=== PATIENT | female | born 2000 | race Caucasian/White ===

== ENCOUNTER 2023-08-31 23:31 | Emergency (ER) | payer OTHER, SELFPAY ==
[2023-08-31 23:33] VITALS: BP 150/105; PULSE 73; RESP 18; TEMP 36.6; O2SAT 100; BMI 26.3
--- NOTE | 2023-08-31 23:51 | EDS_ITS ---
HPI HPI - GI History of Present Illness Chief Complaint: Abd Pain Informant: patient Abdominal Pain/Flank Pain Onset: Weeks (2-3) Context: Gradual Onset Timing: Continuous Quality: Aching Location: Diffuse Current Severity: Moderate Maximum Severity: Moderate Worsened by: Nothing Relieved by: Nothing Nausea/Vomiting/Emesis GI Symptom: Positive for Nausea; Negative for Vomiting Diarrhea/Melena/Hematochezia GI Symptom: Negative for Diarrhea, Melena or Hematochezia Associated Symptoms Associated Symptoms: Negative for Dysuria, Frequency, Hematuria or Urgency Narrative Narrative: 23-year-old female with a history of asthma has been having diffuse infraumbilical abdominal pain for weeks. Yesterday and today it is radiating into both sides of her low back. When she eats the pain does not worsen, but she does get more nauseated. She is having normal bowel movements without mucus, diarrhea, melena, blood. Bowel movements do not improve the pain afterwards. No urinary symptoms. Has not noticed a pattern with certain foods or foods in general. Made an appointment with her doctor but it is going to be weeks before she can be seen. She presents to the ER because noticing symptoms are worsening rather than improving. She is drinking fluids without difficulty. No history of this. No history of any abdominal surgeries. States initially felt like cramping, she does not usually get menstrual cramps and has not for years because of control medication that she is on. She denies any vaginal discharge or other vaginal symptoms. [facility] Medical History (Updated 09/01/23 @ 03:[address] Jose Anderson MD) Asthma Home Medications dicyclomine 10 mg capsule 20 mg (2 x 10 mg) PO Q6H PRN Abdominal Discomfort #30 CAPSULES 09/01/23 [Rx Last Taken Unknown] ondansetron 4 mg disintegrating tablet 8 mg (2 x 4 mg) PO Q8H PRN PRN Nausea #30 tabs 09/01/23 [Rx Last Taken Unknown] pantoprazole 40 mg tablet,delayed release 40 mg PO DAILY #14 tabs 09/01/23 [Rx Last Taken Unknown] Allergy/AdvReac Type Severity Reaction Status Date / Time levetiracetam [From [facility]] Allergy Intermediate Hives Verified 08/31/23 23:35 shellfish derived Allergy Intermediate Hives Verified 08/31/23 23:35 Surgical History no surgical history no surgical history Social History Smoking Status: Never smoker ROS ROS ED Constitutional Constitutional ED: Denies chills or fever(s) Eyes Eyes: Denies change in vision or diplopia ENT ENT ED: Denies rhinorrhea or sore throat Cardiovascular Cardiovascular: Denies chest pain or palpitations Respiratory/Chest Respiratory/Chest: Denies cough or dyspnea Gastrointestinal Gastrointestinal: Reports abdominal pain and nausea; Denies diarrhea or vomiting Genitourinary Genitourinary ED: Denies dysuria or hematuria Musculoskeletal Musculoskeletal: Reports back pain; Denies neck pain Integumentary Denies abscess or rash Neurologic Neurologic: Denies headache(s), paresthesias or weakness Psychiatric Psychiatric: Denies anxiety or suicidal thoughts EXAM Physical Exam Const Vital Signs: 08/31/23 23:33 09/01/23 01:32 Temperature 97.9 F Temperature Source Temporal Pulse Rate 73 Respiratory Rate 18 16 Blood Pressure 150/105 H Blood Pressure Mean 120 Pulse Ox 100 Oxygen Delivery Method Room Air Positive well nourished and well developed General Appearance ED: well developed and NAD HEENT Reports moist mucous membranes normocephalic and atraumatic Eyes PERRL and EOMs intact bilaterally Neck full ROM and supple Resp normal respiratory effort and clear to auscultation bilaterally Cardio regular rate, regular rhythm and no murmurs GI non-distended GI Narrative: Mild diffuse lower abdominal pain. No rebound tenderness no guarding. Soft no palpable masses or organomegaly. Auscultation: hypoactive bowel sounds Palpation: soft Back/Spine no CVA tenderness General Back: other FROM Extremity normal to inspection General Extremety ED: Negative for edema, pulses abnormal or tenderness General Extremity: Negative for edema or pulses abnormal Neuro oriented x3, CN's II-XII intact bilaterally and no sensory deficits noted Sensorium / Orientation: awake and alert Motor Exam: strength 5/5 throughout Skin no rashes or lesions noted and no wounds MDM MDM MDM Narrative Medical decision making narrative: Etiologies include a plethora of functional intestinal disorders, but also possibly colitis of different types, less likely infectious since no diarrhea or fevers and less likely ectopic , but given all of this, I think reasonable to obtain CT imaging in addition to basic labs and a test. While waiting for these tests, she was given IV fluids, Zofran, Toradol, dicyclomine. These medications helped some but did not resolve any of her symptoms, still had some nausea which we treated with Reglan afterwards. The testing is all normal. I reviewed the CT images and the report which I agree with. It shows no acute abnormality. This is reassuring and all consistent with a functional intestinal disorder of some sort, the best case scenario being a transient infection, but I do not suspect this is a bacterial infection since she is not having a very aggressive diarrhea with blood nor leukocytosis or left shift. She understands all this. At this time I think would be reasonable to put her on a 2-week course of a PPI, and then as needed dicyclomine and Zofran until she can follow-up. She is comfortable with that plan. We also discussed trying an anti-inflammatory diet. Lab Data Attestation: I reviewed the patient's lab results. Labs: Laboratory Results - last 24 hr 08/31/23 23:56 WBC 7.0 RBC 4.13 L Hgb 13.1 Hct 38.3 MCV 92.7 MCH 31.7 MCHC 34.2 RDW Std Deviation 39.8 RDW Coeff of Omar 11.7 Plt Count 211 MPV 11.3 Immature Gran % (Auto) 0.600 Neut % (Auto) 51.2 Lymph % (Auto) 38.3 [place] % (Auto) 8.7 Eos % (Auto) 0.9 Baso % (Auto) 0.3 Absolute Neuts (auto) 3.6 Absolute Lymphs (auto) 2.68 Nucleated RBC % 0 Sodium 139 Potassium 3.8 Chloride 108 H Carbon Dioxide 25.0 Anion Gap 6 BUN 15 Creatinine 0.86 Estim Creat Clear Calc 79.78 Est GFR (MDRD) Af Amer 104 Est GFR (MDRD) Non-Af 86 BUN/Creatinine Ratio 17.5 Glucose 105 Calcium 8.6 Total Bilirubin 0.30 AST 11 L ALT 21 Alkaline Phosphatase 69 Total Protein 6.9 Albumin 3.5 Globulin 3.4 Albumin/Globulin Ratio 1.0 Lipase 30 Serum , Qual NEGATIVE Urine Color Yellow Urine Clarity Clear Urine pH 6.5 Ur Specific [place] 1.015 Urine Protein 15 H Urine Glucose (UA) Normal Urine Ketones Negative Urine Occult Blood 25 H Urine Nitrite Negative Urine Bilirubin Negative Urine Urobilinogen Normal Ur Leukocyte Esterase Negative Urine RBC 0-5 SEEN Urine WBC 0 SEEN Ur Squamous Epith Cells 0-5 SEEN Urine Bacteria RARE Urine Mucus 0 SEEN Radiography Diagnostic Testing: Clinical Impression(s) from Imaging Studies Abdomen/Pelvis CT 09/01/23 23:50 IMPRESSION: undefined Discharge Plan Triage Chief Complaint: Abd Pain ED Provider: Jose Anderson Dx/Rx/DC Orders Clinical Impression: Diffuse abdominal pain Instructions: Abdominal Pain Prescriptions: New ondansetron [ondansetron] 4 mg tablet,disintegrating 8 mg PO Q8H PRN PRN (Reason: Nausea) Qty: 30 0RF dicyclomine 10 mg capsule 20 mg PO Q6H PRN (Reason: Abdominal Discomfort) Qty: 30 0RF pantoprazole 40 mg tablet,delayed release (DR/EC) 40 mg PO DAILY Qty: 14 0RF Stand Alone Forms: ED Work / School Excuse Primary Care Provider: Care Physician,No Primary Referrals: Doctor,Your [Non-Staff] - Keep Ash appointment Activity Restrictions/Additional Instructions: Consider trying an anti-inflammatory diet for as many days as you are able, oftentimes these disorders are related to foods and it can be difficult to detect the pattern or the offending agent, as even healthy foods can cause these issues depending on what the problem is. Disposition Disposition: Home, Self Care
[2023-09-01] LABS: Mucous, Urine 0 SEEN /hpf (<or=2+); White Blood Cells 0 SEEN /hpf (0-5)
[2023-09-01] MEDS: Ketorolac 30 MG/ML Syringe IV
[2023-09-01] MEDS: Dicyclomine 10 MG Capsule 20 MG PO
[2023-09-01] MEDS: Ondansetron 4 MG/2 ML Vial IV
[2023-09-01] MEDS: 0.9% Normal Saline (1000mL) 1,000 ML 125 ML IV (00:01)
[2023-09-01 00:07] LABS: Glucose, Dipstick Normal (Normal); Ketone-Dipstick Negative (Negative); Leukocyte Esterase-Dipstick Negative /ul (Negative); Nitrite-Dipstick Negative (Negative); Occult Blood-Urine 25 /ul (Negative); Protein-Dipstick 15 mg/dl (Negative); Specific Gravity, Urine 1.015 (1.002-1.030); Urine Bilirubin Dipstick Negative (Negative); Urine Urobilinogen Normal (Normal); Urine pH 6.5 (5.0 - 8.0)
[2023-09-01 00:08] LABS: Color, Urine Yellow (Yellow); Urine Clarity Clear (Clear)
[2023-09-01 00:13] LABS: Absolute Lymphocyte Count 2.68 X10^3/uL (0.83-4.51); Absolute Neutrophil Count 3.6 X10^3/uL (2.0-7.7); Basophil# 0.02 X10^3/uL; Basophil% 0.3 % (0-1); Eosinophil# 0.06 X10^3/uL; Eosinophils% 0.9 % (0-5); Hematocrit 38.3 % (37-47); Hemoglobin 13.1 g/dL (12.0-15.0); Lymphocyte # 2.68 X10^3/ul (0.83-4.51); Lymphocyte % 38.3 % (19-41); Mean Corp Hgb Conc 34.2 g/dL (32-36); Mean Corpuscular Hgb 31.7 pg (27.0-32.0); Mean Corpuscular Volume 92.7 fL (81-99); Mean Platelet Vol. 11.3 fl (6.2-12.0); Monocyte# 0.61 X10^3/uL; Monocyte% 8.7 % (0-10); NRBC Flagged by Analyzer 0 % (0-5); Neutrophil # 3.58 X10^3/uL (2.7-7.7); Neutrophil % 51.2 % (47-70); Platelet Count 211 K/mm3 (150-450); RBC Distribution Width CV 11.7 % (11.6-14.6); RBC Distribution Width SD 39.8 fl (35.1-43.9); Red Blood Count 4.13 M/mm3 (4.2-5.4)
[2023-09-01 00:14] LABS: Internal QC Validated? YES +Cl - CLEAR BKGD; Pregnancy, Serum, hCG Quali. NEGATIVE Negative
[2023-09-01 00:21] LABS: AST(SGOT) 11 U/L (15-37); Alanine Aminotransfer ALT/SGPT 21 U/L (13-56); Albumin, Serum 3.5 g/dL (3.2-5.0); Alkaline Phosphatase 69 U/L (45-117); Anion Gap 6 (5-15); BUN 15 mg/dL (7-18); BUN/Creat Ratio 17.5 RATIO (10-20); Calcium,Total 8.6 mg/dL (8.5-10.1); Chloride 108 mmol/L (98-107); Creatinine, Serum 0.86 mg/dL (0.55-1.02); EST Glomerular Filtration Rate 86 mL/min (>60); Est Glom Filt Rate - Afr Amer 104 mL/min (>60); Estimated Creatinine Clearance 79.78 ml/min; Globulin 3.4 g/dL (2.2-4.2); Glucose 105 mg/dL (74-106); Lipase 30 U/L (13-75); Potassium 3.8 mmol/L (3.5-5.1); Protein, Total 6.9 g/dL (6.4-8.2); Sodium Level 139 mmol/L (136-145)
[2023-09-01 00:42] LABS: Bacteria RARE /hpf (None Seen); Red Blood Cells-Urine 0-5 SEEN /hpf (0-5); Squamous Epithelial Cells - UA 0-5 SEEN /hpf (5-10)
[2023-09-01 01:32] VITALS: RESP 16
[2023-09-01 03:00] VITALS: PULSE 71; RESP 16; O2SAT 100
[2023-09-01] MEDS: Metoclopramide 10 MG/2 ML Vial 5 MG IV (03:22)
--- NOTE | 2023-09-01 23:50 | CT_ITS ---
EXAM: CT abdomen and pelvis with contrast. HISTORY: diffuse abd pain, nausea -- IV PO Contrast TECHNIQUE: CT Abdomen And Pelvis W/ Contrast Injection. A radiation dose optimization technique was used for this scan. COMPARISON: None. LIMITATIONS: None. LOWER CHEST: Normal. LIVER: Normal. GALLBLADDER: Normal. BILE DUCTS: Normal. PANCREAS: Normal. SPLEEN: Normal. ADRENAL GLANDS: Normal. KIDNEYS/URETERS/BLADDER: Small cyst in the right kidney. No hydronephrosis. AORTA: Normal caliber. BOWEL/MESENTERY: No evidence of colitis. A moderate to large amount of stool is identified. No small bowel obstruction. APPENDIX: Normal. PERITONEUM: Normal. REPRODUCTIVE ORGANS: Normal. BONES/SOFT TISSUES: No acute fracture. OTHER: None. CONCLUSION: No acute abnormality. Electronically Signed: Lisandro Bradley MD at 2:50 EDT , CT/Abdomen/Pelvis WITH Contrast IMPRESSION: undefined
== END 2023-09-01 03:27 | disposition home or self-care (01) ==
PROVIDERS: Emergency Provider Emergency Medicine; Visit Provider Emergency Medicine
DX: R10.84 Generalized abdominal pain (principal); M54.9 Dorsalgia, unspecified; R11.0 Nausea
CPT/HCPCS: 74177; 80053; 81001; 83690; 84703; 85025; 99283; J7030; Q9967; A4216; J2405

== ENCOUNTER 2024-01-12 17:49 | Emergency (ER) | payer OTHER, SELFPAY ==
[2024-01-12 17:49] VITALS: BP 143/102; PULSE 122; RESP 25; TEMP 36.8; O2SAT 100
[2024-01-12 17:51] VITALS: BMI 29.6
[2024-01-12 18:17] LABS: Absolute Lymphocyte Count 2.34 X10^3/uL (0.83-4.51); Absolute Neutrophil Count 8.2 X10^3/uL (2.0-7.7); Basophil# 0.02 X10^3/uL; Basophil% 0.2 % (0-1); Eosinophils% 0.9 % (0-5); Hematocrit 34.9 % (37-47); Hemoglobin 12.1 g/dL (12.0-15.0); Lymphocyte # 2.34 X10^3/ul (0.83-4.51); Mean Corp Hgb Conc 34.7 g/dL (32-36); Mean Corpuscular Volume 92.3 fL (81-99); Mean Platelet Vol. 11.4 fl (6.2-12.0); Monocyte# 0.94 X10^3/uL; NRBC Flagged by Analyzer 0 % (0-5); Neutrophil # 8.24 X10^3/uL (2.7-7.7); Neutrophil % 70.6 % (47-70); Platelet Count 183 K/mm3 (150-450); RBC Distribution Width CV 13.1 % (11.6-14.6); RBC Distribution Width SD 43.3 fl (35.1-43.9); Red Blood Count 3.78 M/mm3 (4.2-5.4); White Blood Count 11.7 K/mm3 (4.4-11.0)
[2024-01-12 18:29] LABS: Color, Urine Yellow (Yellow); Glucose, Dipstick Normal (Normal); Ketone-Dipstick 5 mg/dl (Negative); Leukocyte Esterase-Dipstick 100 /ul (Negative); Nitrite-Dipstick Negative (Negative); Occult Blood-Urine 50 /ul (Negative); Protein-Dipstick 30 mg/dl (Negative); Urine Bilirubin Dipstick Negative (Negative); Urine Clarity Sl. Cloudy (Clear); Urine Urobilinogen 1 mg/dl (Normal); Urine pH 6.5 (5.0 - 8.0)
[2024-01-12 18:33] LABS: Anion Gap 8 (5-15); BUN 7 mg/dL (7-18); BUN/Creat Ratio 9.9 RATIO (10-20); Calcium,Total 9.2 mg/dL (8.5-10.1); Chloride 109 mmol/L (98-107); Creatinine, Serum 0.71 mg/dL (0.55-1.02); EST Glomerular Filtration Rate 107 mL/min (>60); Est Glom Filt Rate - Afr Amer 129 mL/min (>60); Glucose 89 mg/dL (74-106); Internal QC Validated? YES +Cl - CLEAR BKGD; Potassium 3.2 mmol/L (3.5-5.1); Pregnancy, Serum, hCG Quali. POSITIVE Negative; Sodium Level 136 mmol/L (136-145)
--- NOTE | 2024-01-12 18:48 | US_ITS ---
EXAM: US , LIMITED CLINICAL INDICATION: right sided pain TECHNIQUE: Real-time limited ultrasound of the maternal uterus with image documentation. COMPARISON: No relevant prior studies available. FINDINGS: FETUS: There is an intrauterine gestation. POSITION: The fetus is in cephalic examination. HEART RATE: heart rate is 152 bpm. PLACENTA: The placenta is. FREE FLUID: The largest fluid pocket is 2.7 x 2.7 cm. US/OB Limited (No Biometrics) IMPRESSION: Limited ultrasound shows an intrauterine gestation. No measurements were obtained. heart rate is 152 bpm. Electronically Signed: Sam Romo MD at 20:58 EDT ,
--- NOTE | 2024-01-12 18:52 | EDS_ITS ---
HPI HPI - GI History of Present Illness Chief Complaint: Abd Pain Narrative Narrative: 23-year-old female G1, at 15 weeks gestation presenting with acute onset abdominal pain which she states was initially right-sided and then became diffusely crampy. Patient states it was 10 of 10 at the start of this which is a couple hours ago. Patient states now down to about a 5/10. Patient has had OB care. She had confirmed intrauterine . She states her hCGs have been fine . Denies vaginal bleeding or vaginal discharge. No loss of fluid. Denies constipation or diarrhea. Denies vomiting. She states her only other medical problem is asthma. [facility] Medical History Asthma Asthma H pylori ulcer Hives Migraine Pneumonia UTI (urinary tract infection) Home Medications dicyclomine 10 mg capsule 20 mg (2 x 10 mg) PO Q6H PRN Abdominal Discomfort #30 CAPSULES 09/01/23 [Rx Last Taken Unknown] ondansetron 4 mg disintegrating tablet 8 mg (2 x 4 mg) PO Q8H PRN PRN Nausea #30 tabs 09/01/23 [Rx Last Taken Unknown] pantoprazole 40 mg tablet,delayed release 40 mg PO DAILY #14 tabs 09/01/23 [Rx Last Taken Unknown] albuterol sulfate 90 mcg/actuation aerosol inhaler 1 inh inhalation ONCE 09/18/23 [History Last Taken Unknown] ytipomj-olhcqyaosgcqu-uweidklw 250 mg-250 mg-65 mg tablet (Excedrin Migraine) 1 tab PO ONCE 09/18/23 [History Last Taken Unknown] buspirone 5 mg tablet 5 mg PO TID PRN anxiety #30 tabs 09/18/23 [Rx Last Taken Unknown] clindamycin phosphate 1 % topical foam 1 applic topical DAILY 09/18/23 [History Last Taken Unknown] fluticasone propionate 44 mcg/actuation HFA aerosol inhaler (Flovent HFA) 1 puff inhalation BID 09/18/23 [History Last Taken Unknown] folic acid 800 mcg tablet 0.8 mg PO DAILY 09/18/23 [History Last Taken Unknown] rizatriptan 5 mg tablet See Rx Instructions PO .COMPLEX 09/18/23 [History Last Taken Unknown] Allergy/AdvReac Type Severity Reaction Status Date / Time shellfish derived Allergy Severe Hives Verified 01/12/24 17:51 levetiracetam [From [facility]] AdvReac Severe Hives Verified 01/12/24 17:51 Family History Sister Asthma Grandfather Cancer lung Grandmother Diabetes Parkinson disease Alzheimer disease Aunt Diabetes Uncle Diabetes Mother Hypertension Thyroid disorder Father Hypertension Grandfather Kidney disease Surgical History H/O knee surgery Edson teeth extracted Social History household members: spouse current occupational status: employed 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 Smoking Status: Never smoker Electronic Cigarette Use: not used second hand exposure: No alcohol intake: current alcohol intake frequency: a few times a month substance use type: does not use what type of physical activity do you participate in: walking frequency: 3-4 times per week do you feel safe at home: Yes ROS ROS ED Constitutional Constitutional ED: Denies chills, fever(s) or sweats Eyes Eyes: Denies blurry vision or change in vision ENT ENT ED: Denies ear pain or sore throat Cardiovascular Cardiovascular: Denies chest pain, palpitations or racing heartbeat Respiratory/Chest Respiratory/Chest: Denies cough, dyspnea or sputum Gastrointestinal Gastrointestinal: Reports abdominal pain; Denies constipation, diarrhea, nausea or vomiting Genitourinary Genitourinary ED: Denies dysuria, hematuria or urinary frequency Musculoskeletal Musculoskeletal: Reports back pain; Denies arthralgias, myalgias or neck pain Integumentary Denies abscess, Abrasions or rash Neurologic Neurologic: Denies headache(s), paresthesias or weakness Psychiatric Psychiatric: Denies anxiety, depression, suicidal ideation or suicidal thoughts Endocrine Endocrinology: Denies polydipsia or polyuria EXAM Physical Exam Const Vital Signs: 01/12/24 17:49 01/12/24 19:49 Temperature 98.2 F Temperature Source Temporal Pulse Rate 122 H 75 Respiratory Rate 25 H 16 Blood Pressure 143/102 H 120/78 Blood Pressure Mean 115 92 Pulse Ox 100 93 Oxygen Delivery Method Room Air Room Air Positive well nourished General Appearance ED: NAD; Negative for pallor HEENT Reports moist mucous membranes normocephalic and atraumatic Eyes PERRL Resp normal respiratory effort Cardio regular rhythm Rate: tachycardic GI non-tender, non-distended and no masses Back/Spine no CVA tenderness Neuro CN's II-XII intact bilaterally Motor Exam: strength 5/5 throughout Psych mental status grossly normal Skin General Skin Exam: Negative for jaundice or pallor MDM MDM MDM Narrative Medical decision making narrative: Patient 15 weeks gestation presenting with abdominal pain which is since improved. Clinical lab works were obtained with the waiting room and her CBC and BMP were unremarkable. Urinalysis negative for infection. test was positive. Will send for quantitative hCG. Will obtain transvaginal ultrasound PE. Patient's abdominal exam is benign. Patient given Tylenol for pain. CBC shows normal white blood count 11.7. Hemoglobin 12.1. Platelets 183. Renal function electrolytes within normal limits with exception of potassium 3.2. Urinalysis negative for infection but does show some contamination. Patient does not have any urinary symptoms. hCG appropriate at 60,054. Transvaginal ultrasound obtained and shows no evidence of ectopic and shows intrauterine with heart rate at 152. Patient counseled on findings. She is currently pain-free after Tylenol. Return precautions were discussed. Impression: 1 abdominal pain in Lab Data Attestation: I reviewed the patient's lab results. Labs: Laboratory Results - last 24 hr 01/12/24 01/12/24 18:09 18:20 WBC 11.7 H RBC 3.78 L Hgb 12.1 Hct 34.9 L MCV 92.3 MCH 32.0 MCHC 34.7 RDW Std Deviation 43.3 RDW Coeff of Omar 13.1 Plt Count 183 MPV 11.4 Immature Gran % (Auto) 0.300 Neut % (Auto) 70.6 H Lymph % (Auto) 20.0 [place] % (Auto) 8.0 Eos % (Auto) 0.9 Baso % (Auto) 0.2 Absolute Neuts (auto) 8.2 H Absolute Lymphs (auto) 2.34 Nucleated RBC % 0 Sodium 136 Potassium 3.2 L Chloride 109 H Carbon Dioxide 19.0 L Anion Gap 8 BUN 7 Creatinine 0.71 Est GFR (MDRD) Af Amer 129 Est GFR (MDRD) Non-Af 107 BUN/Creatinine Ratio 9.9 L Glucose 89 Calcium 9.2 HCG, Quant 35142 H Serum , Qual POSITIVE H Urine Color Yellow Urine Clarity Sl. Cloudy Urine pH 6.5 Ur Specific [place] 1.020 Urine Protein 30 H Urine Glucose (UA) Normal Urine Ketones 5 H Urine Occult Blood 50 H Urine Nitrite Negative Urine Bilirubin Negative Urine Urobilinogen 1 H Ur Leukocyte Esterase 100 H Urine RBC 5-10 SEEN Urine WBC 0-5 SEEN Ur Squamous Epith Cells 5-10 SEEN Urine Bacteria 1+ Urine Mucus RARE Radiography Diagnostic Testing: Clinical Impression(s) from Imaging Studies Obstetrics Ultrasound 01/12/24 18:48 IMPRESSION: Limited ultrasound shows an intrauterine gestation. No measurements were obtained. heart rate is 152 bpm. Electronically Signed: Sam Romo MD at 20:58 EDT , Discharge Plan Triage Chief Complaint: Abd Pain ED Provider: Sudeep Forrester Dx/Rx/DC Orders Instructions: ED Abdominal Pain, Early Prescriptions: No Action folic acid 800 mcg tablet 0.8 mg PO DAILY clindamycin phosphate 1 % foam 1 applic topical DAILY rizatriptan 5 mg tablet See Rx Instructions PO .COMPLEX Rx Instructions: take 1 tablet at onset of headache; if no relief, may repeat 1 tablet after at least 2 hrs PO Excedrin Migraine 250-250-65 mg tablet 1 tab PO ONCE fluticasone propionate [Flovent HFA] 44 mcg/actuation HFA aerosol inhaler 1 puff inhalation BID Rx Instructions: administer with spacer albuterol sulfate 90 mcg/actuation HFA aerosol inhaler 1 inh inhalation ONCE buspirone 5 mg tablet 5 mg PO TID PRN (Reason: anxiety) Qty: 30 0RF ondansetron [ondansetron] 4 mg tablet,disintegrating 8 mg PO Q8H PRN PRN (Reason: Nausea) Qty: 30 0RF dicyclomine 10 mg capsule 20 mg PO Q6H PRN (Reason: Abdominal Discomfort) Qty: 30 0RF pantoprazole 40 mg tablet,delayed release (DR/EC) 40 mg PO DAILY Qty: 14 0RF Primary Care Provider: Laurel Mcneal Referrals: Cara Wagner MD [Med Staff - Active Staff] - 3-5 Days Robert Cuellar [[employer] Helper] - Disposition Disposition: Home, Self Care
[2024-01-12 19:00] LABS: Bacteria 1+ /hpf (None Seen); Mucous, Urine RARE /hpf (<or=2+); Red Blood Cells-Urine 5-10 SEEN /hpf (0-5); Squamous Epithelial Cells - UA 5-10 SEEN /hpf (5-10)
[2024-01-12 19:01] LABS: White Blood Cells 0-5 SEEN /hpf (0-5)
[2024-01-12 19:25] LABS: hCG Titer Quant., Serum 60054 mIU/mL (1-3)
[2024-01-12] MEDS: Acetaminophen 500 MG Tablet 1000 MG PO (19:28)
--- OUTSIDE RECORDS SUMMARY | 2024-01-12 19:44 | XMS RPT_ITS | CCD ---
Author Name Unknown Address [address] [place] [address] Organization [facility] Care Team Providers Care Enlisted Advisor Name Role Phone MICLAT, PEDRO PABLO S Primary Care Unavailable BRANDONCAROLYN DELUCA Admitting Unavailable BRANDON DELUCA Attending Unavailable KUNAL GODWIN Attending Unavailable MICLAT, PEDRO PABLO S Primary Care Unavailable Yasir Abreu Unavailable Unavailable Kunal Godwin Unavailable Unavailable Miclat, Pedro Pablo Sapuriada Unavailable Unavaila Jennifer Day Dipasupil Unavailable Unavaila Yasir Hampton Unavailable Unavailable Miclat, Pedro Pablo S Unavailable Unavailable System, Provider Not In Primary Care Provider Un available Dew Chan Unavailable Unavailable MartinezJennifer hagen D Unavailable Unavailable AshlyerJohnson choee Unavailable Unavailable JAROD GARCIA Attending Unavailabl e SYSTEM, PROVIDER NOT IN Primary Care UnavailYasir Painter MD Unavailable UnavailKunal Tolliver MD Unavailable Unavailable Miclat, Pedro Pablo S Unavailable Unavailable Jennifer Martinez Unavailable Unavailable Unavailable Primary Care Provider UnavailOCTAVIO Johns Attending Unavailable MISSY GIMENEZ Referring Unavailable BARRETT SANCHEZ Referring Unavailable OCTAVIO BALBUENA Attending Unavailable BARRETT SANCHEZ Attending Unavailable BARRETT SANCHEZ Referring Unavailable BARRETT SANCHEZ Attending Unavailable PRESLEY RATLFIF Attending Unavailable Allergies Allergy Classification Reported Allergen(s) Allergy Type Date of Onset Reaction(s) Facility Anti-Epileptic Agents (2 sources) levETIRAcetam; Translations: [LEVETIRACETAM] Drug Allergy 1 [facility] Repository Fish (1 source) shellfish, unspecified Food Allergy [facility] Work Phone: Shellfish (1 source) Shellfish; Translations: [SHELLFISH DERIVED] Food Allergy 1 [facility] Repository (4 sources) levETIRAcetam [facility] Work Phone: (11 sources) shellfish, unspecified; Translations: [SHELLFISH] Allergy to substance (finding) [facility] (8 sources) levETIRAcetam; Translations: [LEVETIRACETAM] Drug Allergy 1 Hives, Swelling [facility] (1 source) Shellfish Propensity to adverse reactions to drug 1 [facility] (7 sources) Cephalexin; Translations: [CEPHALEXIN] Drug Allergy 0 [facility] Medications Completed/Discontinued Medications Medication Drug Class(es) Dates Sig (Normalized) Sig (Original) acetaminophen 325 mg / oxyCODONE hydrochloride 5 mg oral tablet (1 source) Opioid Agonist Start: 10-19-2020 take 1 tablet by mouth every six hours as needed for pain oxyCODONE-Acetami nophen 5-325 MG Oral Tablet TAKE 1 TABLET EVERY 6 HOURS NEEDED FOR PAIN. Quantity: 28 Refills: 0 Yasir Abreu MD Start : 19-Oct-2020 Active Problems Active Problems Problem Classification Problem Date Documented Date Episodic/Chronic Adjustment disorders (5 sources) Adjustment disorder; Translations: [Other specified adjustment reactions] Chronic Asthma (17 sources) Exacerbation of asthma; Translations: [Asthma] Onset: 11-22-2007 08-11-2009 Chronic Bacterial infection; unspecified site (1 source) Helicobacter pylori [H. 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 Gastroduodenal ulcer (except hemorrhage) (1 source) Gastric ulcer, unspecified as acute or chronic, without hemorrhage or perforation; Translations: [Gastric ulcer due to Helicobacter pylori, unspecified chronicity] Onset: 10-27-2023 Chronic Genitourinary symptoms and ill-defined conditions (5 sources) Blood in urine; Translations: [Hematuria, unspecified] Episodic Joint disorders and dislocations; trauma-related (1 source) Patellofemoral stress syndrome; Translations: [Pain in joint, lower leg] Chronic Joint disorders and dislocations; trauma-related (4 sources) Patellofemoral stress syndrome; Translations: [PFS (patellofemoral syndrome)] Episodic Miscellaneous mental health disorders (5 sources) Adjustment insomnia; Translations: [Transient disorder of initiating or maintaining sleep] Episodic Other complications of (1 source) RhD negative; Translations: [Other specified related conditions, unspecified trimester] Onset: 12-27-2023 12-27-2023 Episodic Other connective tissue disease (3 sources) Synovitis of knee; Translations: [Synovitis of knee] Chronic Other connective tissue disease (2 sources) Decreased range of knee movement ; Translations: [Decreased range of motion of right knee] Chronic Other connective tissue disease (5 sources) H/O: back problem; Translations: [Personal history of other musculoskeletal disorders] Episodic Other connective tissue disease (5 sources) Tendinitis of knee; Translations: [Other synovitis and tenosynovitis] Episodic Other connective tissue disease (1 source) Synovitis of knee; Translations: [Other synovitis and tenosynovitis] Episodic Other female genital disorders (5 sources) Vulval irritation; Translations: [Other specified noninflammatory disorders of vulva and perineum] Episodic Other female genital disorders (5 sources) Vaginal discharge; Translations: [Leukorrhea, not specified as infective] Episodic Other inflammatory condition of skin (5 sources) Pruritus of vagina; Translations: [Pruritus of genital organs] Episodic Other injuries and conditions due to external causes (1 source) Injury of toe of left foot; Translations: [Unspecified injury of left foot, initial encounter] 05-08-2023 Episodic Other lower respiratory disease (5 sources) Cough; Translations: [Cough] Episodic Other lower respiratory disease (5 sources) H/O: respiratory disease; Translations: [Personal history of other diseases of respiratory system] Episodic Other nervous system disorders (5 sources) Muscle twitch; Translations: [Abnormal involuntary movements] Episodic Other nervous system disorders (5 sources) Involuntary movement; Translations: [Abnormal involuntary movements] Episodic Other nervous system disorders (4 sources) Postoperative pain ; Translations: [Other acute postoperative pain] Episodic Other nervous system disorders (4 sources) H/O: migraine; Translations: [Personal history of other diseases of the nervous system and sense organs] Onset: 11-27-2023 11-27-2023 Episodic Other nervous system disorders (4 sources) Intermittent tremor; Translations: [Tremor, unspecified] Onset: 11-27-2023 11-27-2023 Episodic Other non-traumatic joint disorders (6 sources) Knee pain; Translations: [Knee pain] Episodic Other non-traumatic joint disorders (1 source) Decreased range of knee movement; Translations: [Stiffness of joint, not elsewhere classified, lower leg] Episodic Other and delivery including normal (8 sources) with uncertain dates; Translations: [Encounter for supervision of normal , unspecified, first trimester] Onset: 11-27-2023 11-27-2023 Episodic Other screening for suspected conditions (not mental disorders or infectious disease) (3 sources) Patient encounter status; Translations: [Encounter for other screening for genetic and chromosomal anomalies] Onset: 12-04-2023 12-04-2023 Episodic Other upper respiratory disease (5 sources) Allergic rhinitis; Translations: [Allergic rhinitis, cause unspecified] Chronic Other upper respiratory infections (5 sources) Viral upper respiratory tract infection; Translations: [Acute upper respiratory infections of unspecified site] Episodic Otitis media and related conditions (10 sources) Fluid level behind tympanic membrane; Translations: [Acute left otitis media] Episodic Residual codes; unclassified (1 source) Contact with and (suspected) exposure to potentially hazardous body fluids; Translations: [Exposure to blood or body fluid] Episodic Residual codes; unclassified (1 source) History of clinical finding in subject; Translations: [Personal history of other specified diseases] Episodic Residual codes; unclassified (1 source) Gestation period, 13 weeks; Translations: [13 weeks gestation of ] 01-03-2024 Episodic Sprains and strains (15 sources) Low back strain; Translations: [Sprain of ankle] Episodic Unclassified (3 sources) Unspecified convulsions; Translations: [Unspecified convulsions] Onset: 06-11-2018 Past or Other Problems Problem Classification Problem Date Documented Da te Episodic/Chronic Abdominal pain (1 source) Unspecified abdominal pain; Translations: [Abdominal pain decreased with position change] Onset: 09-13-2023 Episodic Other connective tissue disease (3 sources) Tendonitis of right patellar tendon; Translations: [Patellar tendinitis, right knee] Onset: 01-20-2014 01-20-2014 Episodic Other gastrointestinal disorders (1 source) Diarrhea, unspecified; Translations: [Diarrhea of presumed infectious origin] Onset: 09-13-2023 Episodic Other injuries and conditions due to external causes (1 source) Unspecified injury of left foot, initial encounter; Translations: [Toe injury, left, initial encounter] Onset: 05-08-2023 Episodic Other nervous system disorders (3 sources) Unspecified abnormal involuntary movements; Translations: [Unspecified abnormal involuntary movements] Onset: 07-26-2018 Episodic Other non-traumatic joint disorders (5 sources) Pain in right knee; Translations: [Right knee pain] Onset: 01-20-2014 01-20-2014 Episodic Unclassified (4 sources) Patient encounter status; Translations: [Encounter for routine child health examination without abnormal findings] Unclassified (4 sources) History of clinical finding in subject; Translations: [History of fever] NEGATED: Highlighted row has not occurred!Residual codes; unclassified (20 sources) Disease Episodic Results Test Name Value Interpretation Reference Range Facil ity Vital Signs Date Time Vital Sign Value Performing Clinician Faci lity 12-26-2023 13:34-0500 Body weight 65.77 kg Octavio Balbuena MD Work Phone: [facility] 12-26-2023 13:34-0500 Diastolic blood pressure 70 mm[Hg] Octavio Balbuena MD Work Phone: [facility] 12-26-2023 13:34-0500 Systolic blood pressure 110 mm[Hg] Octavio Balbuena MD Work Phone: [facility] 11-27-2023 13:14-0500 Body height 157.5 cm Barrett Sanchez APRN.CNM Work Phone: [facility] 11-27-2023 13:14-0500 Body weight 66.68 kg Barrett Sanchez APRN.CNM Work Phone: [facility] 11-27-2023 13:14-0500 Diastolic blood pressure 66 mm[Hg] Barrett Sanchez APRN.CNM Work Phone: [facility] 11-27-2023 13:14-0500 Systolic blood pressure 118 mm[Hg] Barrett Daniel VIRAMONTES Work Phone: [facility] 09-07-2023 15:09-0500 Body height 157.5 cm Octavio Balbuena MD Work Phone: [facility] 09-07-2023 15:09-0500 Body weight 63.96 kg Octavio Balbuena MD Work Phone: [facility] 09-07-2023 15:09-0500 Diastolic blood pressure 70 mm[Hg] Octavio Balbuena MD Work Phone: [facility] 09-07-2023 15:09-0500 Systolic blood pressure 110 mm[Hg] Octavio Balbuena MD Work Phone: [facility] 05-08-2023 09:15-0400 Body temperature 97.39 [degF] Missy Athy PA-C Work Phone: [facility] 05-08-2023 09:15-0400 Body weight 62.69 kg Missy Athy PA-C Work Phone: [facility] 05-08-2023 09:15-0400 Diastolic blood pressure 82 mm[Hg] Missy Athy PA-C Work Phone: [facility] 05-08-2023 09:15-0400 Heart rate 96 /min Missy Athy PA-C Work Phone: [facility] 05-08-2023 09:15-0400 Respiratory rate 18 /min Missy Athy PA-C Work Phone: [facility] 05-08-2023 09:15-0400 SaO2% (BldA) [Mass fraction] 100 % Missy Athy PA-C Work Phone: [facility] 05-08-2023 09:15-0400 Systolic blood pressure 116 mm[Hg] Missy Athy PA-C Work Phone: [facility] 12-09-2020 16:27-0500 Pulse (Heart Rate) 88 /min Jarod Garcia [facility] 12-09-2020 13:25-0500 BMI (Body Mass Index) 25.89 kg/m2 Jarod Garcia [facility] 12-09-2020 13:25-0500 Body Temperature 98.2 [degF] Jarod Garcia [facility] 12-09-2020 13:25-0500 Body weight 62.14 kg Jarod Garcia [facility] 12-09-2020 13:25-0500 BP Diastolic 95 mm[Hg] Jarod Garcia [facility] 12-09-2020 13:25-0500 BP Systolic 140 mm[Hg] Jarod Garcia [facility] 12-09-2020 13:25-0500 Height 154.9 cm Jarod Garcia [facility] 12-09-2020 13:25-0500 Pulse Oximetry 98 % Jarod Garcia [facility] 12-09-2020 13:25-050 Respiratory Rate 18 /min Jarod Garcia [facility] Encounters Encounter Date Encounter Type Care Provider Facility Start: 01-03-2024 End: 01-03-2024 ambulatory BARRETT SANCHEZ Facility:[facility] Start: 01-03-2024 End: 01-03-2024 Patient encounter procedure Trans[facility] Work Phone: OB/Gynecology Procedures Date Procedure Procedure Detail Performing Clinician Start: 01-03-2024 Us nuchal translucency 1st gestation Barrett Sanchez APRN.CNM Work Phone: Start: 12-26-2023 Antibody screen OCTAVIO BALBUENA Plan of Treatment Date Care Activity Detail Author Start: 06-01-2031 Urine microalbumin profile DTaP,Tdap,Td Vaccine (7 - Td or Tdap) [facility] Start: 11-27-2026 Screening for malign ant neoplasm of cervix Pap Testing [facility] Start: 06-24-2024 PAP TESTING PAP TESTING [facility] Start: 12-26-2023 End: 03-26-2024 Chromosome 21 trisomy [Presence] in Blood or Tissue by Cytogenetics [facility] Work Phone: Immunizations Immunization Date Immunization Notes Care Provider Jimenez [email or web address] 08-28-2023 influenza virus vacc ine, unspecified formulation Octavio Balbuena MD Work Phone: [facility] 09-01-2016 meningococcal polysaccharide (groups A, C, Y and W-135) diphtheria toxoid conjugate vaccine (MCV4P) [facility] Work Phone: 06-02-2011 tetanus toxoid, redu lois diphtheria toxoid, and acellular pertussis vaccine, adsorbed [facility] Work Phone: 06-02-2011 varicella virus vaccine [facility] Work Phone: 09-06-2008 influenza virus vacc ine, unspecified formulation Missy Athy PA-C Work Phone: [facility] 09-06-2008 influenza, seasonal, injectable [facility] Work Phone: 12-05-2007 influenza virus vacc ine, unspecified formulation Missy Athy PA-C Work Phone: [facility] 12-05-2007 influenza, seasonal, injectable [facility] Work Phone: 05-20-2004 diphtheria, tetanus toxoids and acellular pertussis vaccine Missy Athy PA-C Work Phone: [facility] 05-20-2004 measles, mumps and rubella virus vaccine Missy Athy PA-C Work Phone: [facility] 05-20-2004 poliovirus vaccine, inactivated Missy Athy PA-C Work Phone: [facility] 05-20-2004 diphtheria, tetanus toxoids and acellular pertussis vaccine [facility] Work Phone: 05-20-2004 measles, mumps and rubella virus vaccine [facility] Work Phone: 05-20-2004 poliovirus vaccine, inactivated [facility] Work Phone: 08-16-2001 poliovirus vaccine, inactivated Missy Athy PA-C Work Phone: [facility] 08-16-2001 poliovirus vaccine, inactivated [facility] Work Phone: 08-16-2000 diphtheria, tetanus toxoids and acellular pertussis vaccine Missy VIEIRA-C Work Phone: [facility] 08-16-2000 diphtheria, tetanus toxoids and acellular pertussis vaccine [facility] Work Phone: 05-10-2000 haemophilus influenz ae type b vaccine, HbOC conjugate Missy VIEIRA-C Work Phone: [facility] 05-10-2000 measles, mumps and rubella virus vaccine Missy VIEIRA-C Work Phone: [facility] 05-10-2000 haemophilus influenz ae type b vaccine, PRP-OMP conjugate [facility] Work Phone: 05-10-2000 measles, mumps and rubella virus vaccine [facility] Work Phone: 02-02-2000 hepatitis B vaccine, pediatric or pediatric/adolescent dosage Missy VIEIRA-C Work Phone: [facility] 02-02-2000 varicella virus vaccine Missy VIEIRA-C Work Phone: [facility] 02-02-2000 hepatitis B vaccine, pediatric or pediatric/adolescent dosage [facility] Work Phone: 02-02-2000 varicella virus vaccine [facility] Work Phone: 1999 diphtheria, tetanus toxoids and acellular pertussis vaccine Missy VIEIRA-C Work Phone: [facility] 1999 haemophilus influenz ae type b vaccine, HbOC conjugate Missy VIEIRA-C Work Phone: [facility] 1999 diphtheria, tetanus toxoids and acellular pertussis vaccine [facility] Work Phone: 1999 haemophilus influenz ae type b vaccine, PRP-OMP conjugate [facility] Work Phone: 1999 diphtheria, tetanus toxoids and acellular pertussis vaccine Missy Athy PA-C Work Phone: [facility] 1999 haemophilus influenz ae type b vaccine, HbOC conjugate Missy Athy PA-C Work Phone: [facility] 1999 poliovirus vaccine, inactivated Missy Athy PA-C Work Phone: [facility] 1999 rotavirus, live, pentavalent vaccine Missy Athy PA-C Work Phone: [facility] 1999 diphtheria, tetanus toxoids and acellular pertussis vaccine [facility] Work Phone: 1999 haemophilus influenz ae type b vaccine, PRP-OMP conjugate [facility] Work Phone: 1999 poliovirus vaccine, inactivated [facility] Work Phone: 1999 rotavirus, live, monovalent vaccine [facility] Work Phone: 1999 diphtheria, tetanus toxoids and acellular pertussis vaccine Missy Athy PA-C Work Phone: [facility] 1999 haemophilus influenz ae type b vaccine, HbOC conjugate Missy Athy PA-C Work Phone: [facility] 1999 hepatitis B vaccine, pediatric or pediatric/adolescent dosage Missy Athy PA-C Work Phone: [facility] 1999 poliovirus vaccine, inactivated Missy Gimenez PA-C Work Phone: [facility] 1999 rotavirus, live, pentavalent vaccine Missy Gimenez PA-C Work Phone: [facility] 1999 diphtheria, tetanus toxoids and acellular pertussis vaccine [facility] Work [facility]: 1999 haemophilus influenz ae type b vaccine, PRP-OMP conjugate [facility] Work Phone: 1999 hepatitis B vaccine, pediatric or pediatric/adolescent dosage [facility] Work Phone: 1999 poliovirus vaccine, inactivated [facility] Work Phone: 1999 hepatitis B vaccine, pediatric or pediatric/adolescent dosage Missy Gimenez PA-C Work Phone: [facility] 1999 hepatitis B vaccine, pediatric or pediatric/adolescent dosage [facility] Work Phone: Payers Date Payer Category Payer Private Health Insurance [id number] 2022 Private Health Insurance [id number] 2022 Unknown [id number] 2019 Unknown [id number] 2019 Unknown MMO MMO [employer] PPO [id number] 2019-Present [phone] [address] [place] [address] PPO [id number] 1999 Unknown [id number] 1999 Unknown [id number] 1999 Unknown [id number] Unknown [id number] Social History Date Type Detail Facility Start: 12-09-2020 End: 09-07-2023 Tobacco smoking status NHIS Never smoker [facility] Start: 12-09-2020 End: 09-07-2023 Tobacco use and exposure Never used [facility] Start: 12-09-2020 Alcohol intake Ex-drinker (finding) [facility] Start: 12-09-2020 Alcohol Comment [facility] Start: 2000 Sex Assigned At Not on file [facility] Exposure to SARS-CoV-2 (event) Not sure [facility] Start: 05-08-2023 Alcohol intake Not Asked [facility] Start: 05-08-2023 End: 09-07-2023 History of Social function [facility] Start: 05-08-2023 End: 09-07-2023 Tobacco use panel [facility] Start: 09-07-2023 End: 12-26-2023 Alcohol intake Current drinker of alcohol (finding) [facility] National Score (1-100), lower number is lower risk 71 [facility] Start: 09-07-2023 Alcohol Comment occasional [facility] Start: 10-14-2023 [facility] NEGATED: Highlighted row - [facility] Work Phone: Goals Date Patient Goal Desired Activity /State Personal health goal Functional Status Date Assessment Result Facility NEGATED: Highlighted row Functional performance Functional status health issues are not documented Disease [facility] Work Phone: Mental Status Date Assessment Result Facility NEGATED: Highlighted row Cognitive function [Interpretation] Cognitive status health issues are not documented Disease [facility] Work Phone: Clinical Notes 01-20-2014 to 12-26-2023 Quick Notes - Octavio Balbuena MD - 12/26/2023 2:14 PM ESTPatient Instructions Note Date & Type Note Facility 12-26-2023 Miscellaneous Notes Formattin g of this note might be different from the original. KJ - No VB/LOF/ctxs. A&P: NIPT ordered Needs PNB Schedule NT Octavio Balbuena MD documented in this encounter [facility] 12-26-2023 Instructions Braydon Jones Hortencia - 12/26/2023 1:35 PM EST SEQUENTIAL SCREENINGS The [facility] offers sequential screenings for women who are interested in screenings for chromosomal abnormalities and certain defects during a . The sequential screen combines ultrasound and blood tests to determine the risk of chromosomal abnormalities, including Down's Syndrome (Trisomy 21) and Trisomy 18, as well as open neural tube defects including spina bifida. Ultrasound examination is performed between 11 weeks and 13 weeks gestational age. Blood tests are drawn after the ultrasound and again later in the between 15 and 21 weeks gestational age. Please let your physician know if you are interested in this testing. It will require an appointment with our tire service technician. This is not an ultrasound performed by a physician in our office during a routine visit. SIGNS AND SYMPTOMS OF LABOR 1. Contractions every 10 minutes or more often 2. Clear, pink, or brownish fluid (water) leaking from vagina 3. Feeling that baby is pushing down, pressure 4. Low, dull backache 5. Cramps that feel like a period 6. Cramps with or without diarrhea If you notice any of the above symptoms, contact our office at [phone] and ask to speak with a nurse. After hours, you can call doctors registry at [phone] OR call [facility] at [phone] and ask to have the doctor airborne mission systems superintendent paged. If you consider this an emergency, dial [phone]- or go to your nearest emergency department. NEED HELP? Are you dealing with a violent or abusive relationship? Are you a victim of rape or sexual assult? Call [facility] ([place]) 24 hour Crisis Hotline: 594.752.3893 or 775-164-0595. MANUAL Your Guide to a Healthy manual is now on-line. Visit [email or web address] to download your free copy documented in this encounter [facility] documented as of this encounter (statuses as of 12/27/2023) [facility]02-05-2024 History of Past illness Narrative* Problem Noted Date Diagnosed Date Resolved Date Genetic screening 12/04/2023 12/26/2023 Overview: 11/27/23-Desires carrier screening, checking with insurance. Barrett Sanchez APRN.CNM Patellar tendinitis of right knee 01/20/2014 11/27/2023 Left lateral knee pain 01/20/201411/27 documented as of this encounter (statuses as of 01/03/2024) [facility]01-29-2024 NoteHNO ID: [id number] Author: BARRETT SANCHEZ APRN.CNM Service: ? Author Type: Upper Cutter Machine Type: Progress Notes Filed: 11/27/2023 17:01 Note Text: OB point of care ultrasound was performed. See imaging tab for details. Barrett Sanchez APRN.[facility]01-29-2024 NoteHNO ID: [id number] Author: ?, ?, ? Service: ? Author Type: ? Type: Progress Notes Filed: 12/04/2023 18:41 Note Text: INITIAL OB ASSESSMENT HPI: Kwadwo is a 23 year old White here to establish Obstetrical Care. Patient's last menstrual period was 09/30/2023. from OB Dating Form. Do you have regular periods/menstrual cycles? Yes was planned Complaints: No OB History T0 L0 SAB0 IAB0 Ectopic0 Multiple0 Live Births0 How many pregnancies have you had before? 0 Have you had a prior diallo between 20w and 36w6d? No Did you present in active spontaneous labor or have ruptured membranes, or advanced cervical dilation (greater than or equal to 4 cm) or effacement? No Did you have a previous baby with a GBS Infection? No Please select all that apply for any prior : N/A Did you have a partner with Herpes? No Prior : never History of 4th degree laceration: No Patient's Risk Screening for delivery: MEDICAL/PSYCHOSOCIAL HISTORY: History of hemorrhage or bleeding concerns: No Thyroid Disease: No History of chronic hypertension: No History of pre-existing diabetes: No BMI 26.89 kg/(m2) History of abnormal pap: No Prior treatment for cervical dysplasia: none. History of STDs: None Tobacco use: No E-Cigarette/Vaping Use: No Caffeine use: Yes Drug use: No Alcohol use: No Multivitamin with Folic acid: Yes Rastafarian or heritage: No Would refuse blood transfusion if medically necessary: No Social Needs: How often does this describe you? I don't have enough money to pay my bills: Never Within the past 12 months, have you worried that your food would run out before you had money to buy more? Never In the past 12 months, has lack of reliable transportation kept you from going to medical appointments or work, or from getting things needed for daily living? Never In the past 12 months, have you had any concerns about having a place to live, or about the condition or quality of your housing? Never Would you like more information on any of the following (please check all that apply)? Centering (group care classes) Social History: Do you have any history of depression, anxiety, PTSD, or other mood problems? Yes - minor anxiety Do you have a history of abuse or trauma that may impact your experience? 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 OB Depression and Anxiety Screening- This Encounter (since 11/26/2023) Over the past 2 weeks have you felt down, depressed, or hopeless? Negative Over the past two weeks, have you felt little interest or pleasure in doing things?? Negative Feeling nervous, anxious or on edge 1-Several days Not being able to stop or control worrying 1-Several days Anxiety Pre-Screening Total (If >/= 3 additional questions will be reviewed) 2 ACOG Recommended Screening: Screening for early gestational diabetes testing: Criteria for early testing requires elevated BMI plus one other risk factor: BMI 26.89 kg/(m2) (risk factor if > than 25 or 23 in Americans) Additional risk factors: First-degree relative with diabetes She does meet ACOG criteria for early gestational DM screening. Screening for low dose aspirin use for the prevention of pre-eclampsia: Low dose aspirin should be considered if the patient has one high or two moderate risk factors: High risk factors: None Moderate risk ractors: Nulliparity She meet criteria for low dose ASA does not Marital Status: Partner: Name: Elkin Davis Age: 23 Occupation: [employer] Gender: Male History of STDs: None PAST MEDICAL HISTORY Diagnosis Date Acute bronchiolitis due to respiratory syncytial virus (RSV) as baby hospitalized. Unspecified asthma(493.90) dxed age 6 initially on Singulair which caused Caba; PAST SURGICAL HISTORY Procedure Laterality Date KNEE SURGERY HX Right 2020 TOOTH EXTRACTION wisdom teeth Current Outpatient Medications Medication Sig Dispense Refill 25/iron fum/folic/dha (-1 ORAL) Take by mouth. folic acid 800 mcg tablet Take 1 tablet by mouth once daily. CHANDLER FE /, 28, 1 mg-20 mcg (21)/75 mg (7) per tablet Take 1 tablet by mouth every afternoon. (Patient not taking: Reported on 11/20/2023) 90 tablet 4 fluticasone (FLOVENT HFA) 44 mcg/actuation inhaler Inhale 2 Puffs as instructed once daily. VIA SPACER (Patient not taking: Reported on 05/08/2023) 1 Inhaler 8 albuterol HFA (VENTOLIN HFA) 90 mcg/Actuation INHALATION HFAA 2 puffs via spacer every 4-6 hours (Patient not taking: Reported on 05/08/2023) 1 2 No current facility-administered medications for this visit. Allergies As of Date: 11/27/2023 Allergen Noted Reaction CEPHALEXIN 05/26/2020 Hives and Swelling LEVETIRACETAM 02 (more content not included)...[facility] 11-27-2023 History of Present illness Narrative* Pau Hightower - 11/27/2023 1:00 PM EST INITIAL OB ASSESSMENT HPI: Kwadwo is a 23 year old White here to establish Obstetrical Care. Patient's last menstrual period was 09/30/2023. from OB Dating Form. Do you have regular periods/menstrual cycles? Yes was planned Complaints: No OB History T0 L0 SAB0 IAB0 Ectopic0 Multiple0 Live Births0 How many pregnancies have you had before? 0 Have you had a prior diallo between 20w and 36w6d? No Did you present in active spontaneous labor or have ruptured membranes, or advanced cervical dilation (greater than or equal to 4 cm) or effacement? No Did you have a previous baby with a GBS Infection? No Please select all that apply for any prior : N/A Did you have a partner with Herpes? No Prior : never History of 4th degree laceration: No Patient's Risk Screening for delivery: MEDICAL/PSYCHOSOCIAL HISTORY: History of hemorrhage or bleeding concerns: No Thyroid Disease: No History of chronic hypertension: No History of pre-existing diabetes: No BMI 26.89 kg/(m^2) History of abnormal pap: No Prior treatment for cervical dysplasia: none. History of STDs: None Tobacco use: No E-Cigarette/Vaping Use: No Caffeine use: Yes Drug use: No Alcohol use: No Multivitamin with Folic acid: Yes Rastafarian or heritage: No Would refuse blood transfusion if medically necessary: No Social Needs: How often does this describe you? I don't have enough money to pay my bills: Never Within the past 12 months, have you worried that your food would run out before you had money to buy more? Never In the past 12 months, has lack of reliable transportation kept you from going to medical appointments or work, or from getting things needed for daily living? Never In the past 12 months, have you had any concerns about having a place to live, or about the condition or quality of your housing? Never Would you like more information on any of the following (please check all that apply)? Centering (group care classes) Social History: Do you have any history of depression, anxiety, PTSD, or other mood problems? Yes - minor anxiety Do you have a history of abuse or trauma that may impact your experience? 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 OB Depression and Anxiety Screening- This Encounter (since 11/26/2023) Over the past 2 weeks have you felt down, depressed, or hopeless? Negative Over the past two weeks, have you felt little interest or pleasure in doing things? Negative Feeling nervous, anxious or on edge 1-Several days Not being able to stop or control worrying 1-Several days Anxiety Pre-Screening Total (If >/= 3 additional questions will be reviewed) 2 ACOG Recommended Screening: Screening for early gestational diabetes testing: Criteria for early testing requires elevated BMI plus one other risk factor: BMI 26.89 kg/(m^2) (risk factor if > than 25 or 23 in Americans) Additional risk factors: First-degree relative with diabetes She does meet ACOG criteria for early gestational DM screening. Screening for low dose aspirin use for the prevention of pre-eclampsia: Low dose aspirin should be considered if the patient has one high or two moderate risk factors: High risk factors: None Moderate risk ractors: Nulliparity She meet criteria for low dose ASA does not Marital Status: Partner: Name: Elkin Davis Age: 24 Occupation: [employer], [place] [employer] Gender: Male History of STDs: None PAST MEDICAL HISTORY Diagnosis Date Acute bronchiolitis due to respiratory syncytial virus (RSV) as baby hospitalized. Unspecified asthma(493.90) dxed age 6 initially on Singulair which caused Caba; PAST SURGICAL HISTORY Procedure Laterality Date KNEE SURGERY HX Right 2020 TOOTH EXTRACTION wisdom teeth Current Outpatient Medications Medication Sig Dispense Refill 25/iron fum/folic/dha (-1 ORAL) Take by mouth. folic acid 800 mcg tablet Take 1 tablet by mouth once daily. CHANDLER FE 11/18, , 1 mg-20 mcg (21)/75 mg (7) per tablet Take 1 tablet by mouth every afternoon. (Patient not taking: Reported on 11/20/2023) 90 tablet 4 fluticasone (FLOVENT HFA) 44 mcg/actuation inhaler Inhale 2 Puffs as instructed once daily. VIA SPACER (Patient not taking: Reported on 05/08/2023) 1 Inhaler 8 albuterol HFA (VENTOLIN HFA) 90 mcg/Actuation INHALATION HFAA 2 puffs via spacer every 4-6 hours (Patient not taking: Reported on 05/08/2023) 1 2 No current facility-administered medications for this visit. Allergies As of Date: 11/27/2023 Allergen Noted Reaction CEPHALEXIN 05/26/2020 Hives and Swelling LEVETIRACETAM 12/09/2020 Hives and Swelling SHELLFISH 03/27/2010 Hives Fully Assessed 11/27/2023 Does patient have penicillin allergy: No REVIEW OF SYSTEMS: GENERAL: Negative for: Fever or Chills HEENT: Negative for: Headache, Impaired Vision, Ringing in Ears, Nosebleeds NECK: Negative for: Swelling, Pain, Stiffness RESPIRATORY: Negative for: Cough, Shortness of breath, Wheezing, had 2 episodes of Asthma requiringmeds x2 last year. GASTROINTESTINAL: Negative for: Heartburn, Constipation, Diarrhea, Blood in stool, Has experienced nausea, no emesis thus far MUSCULOSKELETAL: Negative for: Muscle or joint pain, stiffness, Joint swelling Generalized body tremors, jerking of unknown eitiology. Work-ups with Neurology have always been negative NEUROLOGIC/PSYCHIATRIC: Negative for: Weakness, Paralysis, Numbness, Tingling, Tremor, Anxiety, Depression, Memory loss SKIN: Negative for: Rash, Itching.has Eczema flair-ups in winter. GENITOURINARY: Negative for: vaginal itching, vaginal discharge, hematuria or dysuria. Completed treatment with Monistat for yeast infection last week. No further symptoms. PHYSICAL EXAM: BP 118/66 Ht 5' 2 (1.58m) Wt 147 lb (66.7kg) LMP 09/30/2023 BMI 26.88 kg/(m^2). GENERAL: pleasant in no apparent distress DERMATOLOGY: Normal, without lesions, non-icteric, and non-hirsute NECK: Supple, full range of motion, no adenopathy, and thyroid normal CHEST: Clear to auscultation, Normal inspiratory effort, Regular rate and rhythm, and No murmurs, clicks, rubs or gallops BREAST: soft, non-tender, symmetric, no dominant mass, normal nipple-areolar complex, no lymphadenopathy, and no nipple discharge ABDOMEN: soft, non-tender, and no masses NEURO: alert and oriented x3,exam grossly non-focal PELVIS: External genitalia normal without lesions. Perineal body intact. No vaginal or cervical lesions. Cervix closed. Uterus 8 week size. No adnexal masses or tenderness. Clinical Pelvimetry: Pelvimetry clinically assessed as adequate Limited OB ultrasound exam: single intrauterine , positive cardiac activity, crown-rump length 8w0d, and normal bilateral adnexa : Assessment: 23 year old at 8w2d wks gestational age 1. with uncertain dates in first trimester - CBC - SYPHILIS TOTAL W/REFLEX - RUBELLA IGG AB - HEP B SURF AG SCRN - HEPATITIS C ANTIBODY IA WITH CONFIRMATION - HIV 1 2 COMBO(AG/AB),WITH REFLEX TO DIFFERENTIATION - TYPE + SCREEN - HGB A1C - GONORRHEA/CHLAMYDIA NAAT - URINE CULTURE - OBSTETRIC ULTRASOUND WHI - NUCHAL TRANSLUCENCY WHI - NURSING PROGRAM COORDINATOR - POC TRADE SHOW COORDINATOR ULTRASOUND - PAP TEST - DOUGLAS/TRICHOMONAS NAAT - BACTERIAL VAGINOSIS NAAT - HEMOGLOBIN EVALUATION CASCADE 2. Encounter for supervision of normal first in first trimester 3. Mild intermittent asthma without complication - Continue current medications - Avoidance of triggers recommended 4. Hx of migraines 5. Occasional tremors PLAN: 1) Patient oriented to practice. Patient given new OB orientation folder. Discussed nutrition, folic acid supplementation, dietary guidelines, exercise, smoking, alcohol, caffeine, and drug use. Discussed gestational weight gain guidelines. Discussed routine OB labs including STD/HIV. Discussed how to access Your guide to a health and the Neurocritical Care Physician. OB Community care order placed. Discussed aneuploidy and carrier screening. Regarding aneuploidy screening, nuchal translucency/first trimester early anatomy ultrasound and NIPT were discussed. Regarding carrier screening, the myriad screen was discussed. The risks/benefits and limitations of NIPT/aneuploidy screening were reviewed including the potential for false negative and false positive results. We discussed the availability of professional-society guided carrier screening and reviewed the conditions screened and limitations of screening. The availability of genetic counseling was reviewed. Information on aneuploidy/carrier screening was provided. The patient chooses: Aneuploidy screening: is uncertain. She will call back if she wants to proceed with screening. Pt aware of timing. and Carrier screening: Accepts Discussed hemoglobin electrophoresis. Patient: Accepts Reviewed midwifery and floral artist services that are available. 2) Discussed nulliparity and ASA if she desires. R/B/A reviewed 3) HgBA1C Follow up in 4 weeks or sooner prn. Jina Sanchez APRN.CNM [facility] Instructions* Patient Instructions* Barrett Sanchez APRN.CNM - 11/27/2023 12:23 PM EST Please select the following link to access the [facility] Your Guide to a Healthy . [email or web address] at [facility] CenteringPregnancy is care that includes a traditional visit with additional timeand attention in a group setting. You will meet with your provider and other women who are due nearthe same time for 10 sessions during your . CenteringPregnancy is a way for you to share learning and experiences with other women and to be an active participant in your own healthcare. What do CenteringPregnancy appointments usually include? ? Your care visit - Follows standard visit schedule ? Your weight, blood pressure, and heart rate monitoring ? Important information and resources for you and your baby ? Time to talk about , childbirth, and family with a group of women who are going through the same experiences *support person welcome! [facility] CenteringPregnancy [facility] CenteringPregnancy group #3 with Barrett Sanchez CNM and Kat Stack CNM at 2:30 p.m. on these Wednesdays Due dates through May 2024 January 02 - Session 1 January 30 - Session 2 February 27 - Session 3 March 20 - Session 4 March 27 - Session 5 April 10 - Session 6 April 15 - Session 7 April 24 - Session 8 May 08 - Session 9 May 14 - Session 10 Start Aspirin 81mg by mouth once daily at 12 weeks Low Dose Aspirin This sheet talks about exposure to low dose aspirin in and while . This information should not take the place of medical care and advice from your healthcare provider.\ What is low dose aspirin? Aspirin is also known as acetylsalicylic acid. It is a common prescription and bput-djh-sdecgsc medication similar to other non-steroidal inflammatory drugs (NSAIDs) like ibuprofen (Motrin ) and naproxen (Aleve ). Aspirin reduces inflammation, fever, and pain. Aspirin can prevent blood clots, which can make it useful in treating or preventing conditions like heart attacks and strokes. Low dose aspirin ranges from 60 to 150 mg daily, but the usual dose taken during to treator prevent certain conditions is 81 mg daily.Regular strength and high strength aspirin and other NSAIDs are NOT preferred pain relievers during .Sometimes when people find out they are , they think about changing how they take their medication, or stopping their medication altogether. However, it is important to talk with your healthcare providers before making any changes to how you take this medication. Your healthcare providers can talk with you about the benefits of treating your condition and the risks of untreated illness during . I take low dose aspirin. Can it make it harder for me to get ? Low dose aspirin is not expected to make it harder to get . A study that included people who had 1 or 2 documented losses then asked to take daily low dose aspirin found that taking low dose aspirin at least 4 days a week increased the chance of a . Does taking low dose aspirin increase the chance for miscarriage? Miscarriage can occur in any . Taking low doses of aspirin is not thought to increase the chance of miscarriage. Some studies have shown that taking low dose aspirin before may help lower the chance of miscarriage in some people who have had one or more miscarriages before 20 weeks of . These findings are similar to studies that showed improved outcomes in people undergoing assisted reproductive technologies (fertility treatments) and were treated with low dose aspirin prior to implantation of the fertilized egg into the uterus. Does taking low dose aspirin increase the chance of defects? Every starts out with a 3-5% chance of having a defect. This is called the background risk. Studies on the use of low dose aspirin during have not found a higher chance of defects. Does taking low dose aspirin in increase the chance of other related problems? Taking low dose aspirin as directed by a healthcare provider is not expected to cause other problems. Studies have shown that low dose aspirin might improve outcomes in some people by increasing blood flow to and reducing inflammation or swelling in the uterus. Studies have also shown that low dose aspirin might lower the chances for preeclampsia (dangerously high blood pressure and complications) in people who are at high risk for this condition. However, people who are should only take low dose aspirin if their healthcare provider recommends it. Does taking low dose aspirin in affect future behavior or learning for the child? There are not many studies about long-term effects for children exposed to low dose aspirin during . However, studies have not found an increased chance for problems with physical or mental development in infants at 18 months of age. A study that looked at children up to 5 years of age who were born very early (before 33 weeks) and who were exposed to low dose aspirin during did not find an effect on their learning or behavior compared to children who were not exposed to low dose aspirin during . while taking low dose aspirin: The occasional use of low dose aspirin (75 mg daily to below 300 mg daily) is not expected to increase risks to a infant. Only small amounts of low dose aspirin enter the breast milk and adverse effects have not been reported in breastfed newborns or older infants. Healthcare providers might recommend low dose aspirin in some people during to treat certain medical conditions. However, regular strength aspirin (over 325 mg) is not preferred during . Aspirin eliminates from an s body more slowly than from an adult s body, so aspirin levels in the infant s body could build up over time with long-term use of aspirin. Using high doseaspirin can lower the body s ability to clot blood(could lead to easier bruising or bleeding). This is not likely to happen withlow dose aspirin. Talk with your Healthcare provider about your questions. If a male takes low dose aspirin, could it affect fertility (ability to get partner ) or increase the chance of defects? There is very limited information about the effects of low dose aspirin on male reproduction. One study looked at men who attended an infertility clinic and were taking non-prescribed low dose aspirin at different doses and frequencies for at least six months. The study reported a decrease in the amount and quality of sperm, especially in those who used higher amounts of aspirin. Generally, it is not considered necessary for men to stop using lowdose aspirin before trying to get their partner . However, men undergoing fertility treatment may want to talk with their healthcare providers about whether or not they need to stop taking aspirin. In general, exposures that fathers or sperm donors have are unlikely to increase the risks to a . For more information, please see the MotherToBaby fact sheet Paternal Exposures at https://mothertobaby.org/fact-sheets/actnwwnc-wzrusqojn-eydqkyoje/. documented in this [facility]01[facility]24 NoteHNO ID: [id number] Author: PRESLEY RATLIFF MD Service: ? Author Type: Physician Type: Progress Notes Filed: 11/20/2023 11:11 Note Text: Kwadwo Davis is a 23 year old female who presents for vaginal some residual discharge after monistat for 7 days, recent spotting and cramping Vaginal discharge: scant amount, thin, and white. Itching: No Dyspareunia: No Fever/chills: No Abdominal pain: occ cramping Bladder: Negative for dysuria or frequency Bowel: No blood in stool, pain with BM, tarry stool, persistent diarrhea or constipation Any new sexual partners or concern for STD exposure: No Any history of STDs: None Does your partner have any new complaints: No Are you currently taking any medications to treat vaginitis: completed monistat one week ago Do you use feminine sprays, douches or deodorants: No Menstrual cycle: LMP 12-*2-23, EGA 7w2d Past medical, surgical, social history, medications and allergies reviewed and updated. OBJECTIVE: Wt 148 lb (67.1kg) LMP 09/30/2023 GENERAL: Well developed, well nourished in no apparent distress ABDOMEN: soft, non-tender, and no masses PELVIC: external genitalia normal, normal Bartholin's glands, urethra, [place]'s glands, no vulvar lesions, no cervical lesions, good vaginal support, physiologic discharge present, normal appearing perineal body and perianal region BIMANUAL: uterus normal size, shape and consistency, no adnexal masses, non-tender, and uterus 7 week size. RECTOVAGINAL: deferred. Wet prep/JESSIE: yeast culture collected/submitted ASSESSMENT/PLAN: Post treatment discharge Hx of recent spotting/cramping Limited ultrasound performed revealing +FH activity RTO for initial ob visit as scheduled FTFC >30m Office Visit on 11/20/23 25/iron fum/folic/dha (-1 ORAL) Any new medications given to the patient have been explained as to directions, reasons for prescribing and side effects. Perineal hygiene and safe sex were discussed with the patient. Presley Ratliff, [facility]11-09-2023 NoteHNO ID: [id number] Author: Octavio Balbuena MD Service: ? Author Type: Physician Type: Progress Notes Filed: 09/07/2023 3:31 PM Note Text: Financial Coach offered: Patient declines. Kwadwo is a 23 year old No obstetric history on file. who presents for an annual gynecologic exam. Menses: no menses - continuous OCPs. Contraception: combined hormonal contraceptives HPV vaccine: Yes Last Pap: 07/07/2021 normal HPV: negative History of abnormal pap: No Last mammogram: never OB History No obstetric history on file. Kiln Puller History LMP: 07/30/2013, Drug Induced Amenorrhea Age at Menarche: Age at First : Age at Menopause: Kiln Puller History Comments: Sexual Activity: Yes; Male Contraception: Pill PAST MEDICAL HISTORY Diagnosis Date Acute bronchiolitis due to respiratory syncytial virus (RSV) as baby hospitalized. Unspecified asthma(493.90) dxed age 6 initially on Singulair which caused Caba; PAST SURGICAL HISTORY Procedure Laterality Date KNEE SURGERY HX Right 2020 TOOTH EXTRACTION wisdom teeth FAMILY HISTORY Problem Relation Age of Onset Hypertension Mother Thyroid Mother Hypertension Father Asthma Sister Hypertension Maternal Grandmother Diabetes Maternal Grandmother Alzheimer's Disease Maternal Grandmother Hypertension Maternal Grandfather other (ckd) Maternal Grandfather Hypertension Paternal Grandmother Cancer Paternal Grandfather lung Asthma Other gparents, cousin SOCIAL HISTORY Social History Tobacco Use Smoking status: Never Smokeless tobacco: Never Vaping Use Vaping Use: Never used Substance Use Topics Alcohol use: Yes Comment: occasional Drug use: Never REVIEW OF SYSTEMS Abdomen: No abdominal pain, nausea, vomiting, diarrhea, or constipation. No bloating, early satiety, indigestion, or increased flatulence. Bladder: No dysuria, gross hematuria, urinary frequency, urinary urgency, or incontinence. Breast: No breast lumps, nipple d/c, overlying skin changes, redness or skin retraction. Allergies and current medication updated:Yes EXAM: BP 110/70 Ht 5' 2 (1.58m) Wt 141 lb (64.0kg) LMP 07/30/2013 BMI 25.78 kg/(m2). GENERAL: pleasant, female in no apparent distress BREAST: soft, non-tender, symmetric, no dominant mass, normal nipple-areolar complex, no lymphadenopathy, and no nipple discharge CHEST: Normal inspiratory effort ABDOMEN: soft, non-tender, and no masses PELVIC: external genitalia normal, normal Bartholin's glands, urethra, [place]'s glands, no vulvar lesions, no cervical lesions, good vaginal support, physiologic discharge present, normal appearing perineal body and perianal region BIMANUAL: uterus normal size, shape and consistency, no adnexal masses, and non-tender RECTOVAGINAL: deferred. NEURO: alert and oriented x3,exam grossly non-focal EXTREMITIES: normal ASSESSMENT/PLAN: 1) Health maintenance: Pap up to date. Nutrition, exercise and routine health maintenance exams reviewed. HPV vaccine: completed series 2) Contraception: combined hormonal contraceptives. Contraceptive options reviewed and information provided. 3) STD screening: Declined STD check. 4) Follow up one year or sooner as needed Octavio Balbuena [facility]11-09-2023 History of Present illness Narrative* Octavio Balbuena MD - 09/07/2023 3:00 PM EST Financial Coach offered: Patient declines. Kwadwo is a 23 year old No obstetric history on file. who presents for an annual gynecologic exam. Menses: no menses - continuous OCPs. Contraception: combined hormonal contraceptives HPV vaccine: Yes Last Pap: 07/07/2021 normal HPV: negative History of abnormal pap: No Last mammogram: never OB History No obstetric history on file. Kiln Puller History LMP: 07/30/2013, Drug Induced Amenorrhea Age at Menarche: Age at First : Age at Menopause: Kiln Puller History Comments: Sexual Activity: Yes; Male Contraception: Pill PAST MEDICAL HISTORY Diagnosis Date Acute bronchiolitis due to respiratory syncytial virus (RSV) as baby hospitalized. Unspecified asthma(493.90) dxed age 6 initially on Singulair which caused Caba; PAST SURGICAL HISTORY Procedure Laterality Date KNEE SURGERY HX Right 2020 TOOTH EXTRACTION wisdom teeth FAMILY HISTORY Problem Relation Age of Onset Hypertension Mother Thyroid Mother Hypertension Father Asthma Sister Hypertension Maternal Grandmother Diabetes Maternal Grandmother Alzheimer's Disease Maternal Grandmother Hypertension Maternal Grandfather other (ckd) Maternal Grandfather Hypertension Paternal Grandmother Cancer Paternal Grandfather lung Asthma Other gparents, cousin SOCIAL HISTORY Social History Tobacco Use Smoking status: Never Smokeless tobacco: Never Vaping Use Vaping Use: Never used Substance Use Topics Alcohol use: Yes Comment: occasional Drug use: Never REVIEW OF SYSTEMS Abdomen: No abdominal pain, nausea, vomiting, diarrhea, or constipation. No bloating, early satiety, indigestion, or increased flatulence. Bladder: No dysuria, gross hematuria, urinary frequency, urinary urgency, or incontinence. Breast: No breast lumps, nipple d/c, overlying skin changes, redness or skin retraction. Allergies and current medication updated:Yes EXAM: BP 110/70 Ht 5' 2 (1.58m) Wt 141 lb (64.0kg) LMP 07/30/2013 BMI 25.78 kg/(m^2). GENERAL: pleasant, female in no apparent distress BREAST: soft, non-tender, symmetric, no dominant mass, normal nipple-areolar complex, no lymphadenopathy, and no nipple discharge CHEST: Normal inspiratory effort ABDOMEN: soft, non-tender, and no masses PELVIC: external genitalia normal, normal Bartholin's glands, urethra, [place]'s glands, no vulvar lesions, no cervical lesions, good vaginal support, physiologic discharge present, normal appearing perineal body and perianal region BIMANUAL: uterus normal size, shape and consistency, no adnexal masses, and non-tender RECTOVAGINAL: deferred. NEURO: alert and oriented x3,exam grossly non-focal EXTREMITIES: normal ASSESSMENT/PLAN: 1) Health maintenance: Pap up to date. Nutrition, exercise and routine health maintenance exams reviewed. HPV vaccine: completed series 2) Contraception: combined hormonal contraceptives. Contraceptive options reviewed and information provided. 3) STD screening: Declined STD check. 4) Follow up one year or sooner as needed [facility]io Balbuena [facility] Miscellaneous Notes* Telephone Encounter - Demetria Mills LPN - 05/09/2023 8:51 AM EDT Patient notified and verbalized understanding of instructions given.Demetria Mills LPN * Telephone Encounter - Meron Del Rosario - 05/08/2023 11:53 AM EDT Left message for patient to return call. Meron Del Rosario * Telephone Encounter - Missy Gimenez PA-C - 05/08/2023 11:46 AM EDT Call and let patient know that the radiologist read her x-rays as a possible nondisplaced fracture through the tuft of the toe. The tuft is at the very end of the toe. I would recommend continuing faby taping for at least 2 weeks and then following up with PCP or podiatry if not improving in that time. [facility]23 NoteHNO ID: [id number] Author: Missy Gimenez PA-C Service: ? Author Type: Physician Wash House Worker Type: Progress Notes Filed: 05/08/2023 10:51 AM Note Text: This note was created using Par[employer]. Subjective Kwadwo Mendieta is a 23 year old female. HPI Presents with left fifth toe pain after hitting her foot at the end of the step yesterday. She had slipped on the step and then hit it at the edge of the wall at the end of the step. She has been walking on it but it is painful. She denies any other injuries. 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 Review of Systems Musculoskeletal: Left foot/toe pain PAST MEDICAL HISTORY Diagnosis Date Acute bronchiolitis due to respiratory syncytial virus (RSV) as baby hospitalized. Unspecified asthma(493.90) dxed age 6 initially on Singulair which caused Caba; Current Outpatient Medications Medication Sig Dispense Refill CHANDLER FE 11/18, 28, 1 mg-20 mcg (21)/75 mg (7) per tablet Take 1 tablet by mouth every afternoon. ibuprofen (MOTRIN) 800 mg tablet Take 1 tablet 3 x a day in 2 week courses (Patient not taking: Reported on 05/08/2023) 90 tablet 3 ibuprofen 200 mg tablet Take 1 tablet by mouth every 6 hours as needed. (Patient not taking: Reported on 05/08/2023) 0 fluticasone (FLOVENT HFA) 44 mcg/actuation inhaler Inhale 2 Puffs as instructed once daily. VIA SPACER (Patient not taking: Reported on 05/08/2023) 1 Inhaler 8 albuterol HFA (VENTOLIN HFA) 90 mcg/Actuation INHALATION HFAA 2 puffs via spacer every 4-6 hours (Patient not taking: Reported on 05/08/2023) 1 2 No current facility-administered medications for this visit. PAST SURGICAL HISTORY Procedure Laterality Date NONE FAMILY HISTORY Problem Relation Age of Onset Asthma Other gparents, cousin Hypertension Maternal Grandfather Genitourinary () Maternal Grandfather Cancer Paternal Grandfather lung Social History Tobacco Use Smoking status: Never Objective BP 116/82 Pulse 96 Temp 36.3 ?C (97.4 ?F) Resp 18 Wt 62.7 kg (138 lb 3.2 oz) LMP 07/30/2013 SpO2 100% Physical Exam Vitals reviewed. Constitutional: Appearance: Normal appearance. HENT: Head: Normocephalic and atraumatic. Musculoskeletal: Comments: Exam of the left foot reveals bruising and swelling to the fifth toe. She is tender on palpation and with range of motion. Some tenderness to the distal fifth metatarsal as well. Pedal pulses 2+. Able to ambulate. Skin: General: Skin is warm and dry. Neurological: Mental Status: She is alert. Assessment and Plan ASSESSMENT/PLAN: 1. Toe injury, left, initial encounter - ICD9: 959.7, ICD10: S99.922A I did not see any obvious fractures, radiology read is pending. I did offer a postop shoe, patient declined. Recommended faby taping and will call on results. Ice, ibuprofen, rest. Follow-up with PCP. Patient agreeable. - XR TOE AP/LAT/OBL LEFT DARI[facility]07-10-2023 NoteHNO ID: [id number] Author: RT Renny(R) Service: Radiology Author Type: Technologist Type: Progress Notes Filed: 05/08/2023 9:47 AM Note Text: Radiology Service Progress Note PATIENT NAME: Kwadwo Mendieta DATE OF SERVICE: May 08, 2023 TIME: 9:40 AM PATIENT IDENTITY VERIFICATION COMPLETED USING TWO (2) IDENTIFIERS: Name and Date of confirmed by patient verbally. FALL SCREENING: Has the patient had 2 falls in the last year or 1 fall with injury or currently using an Ambulatory Assistive Device (Walker, Cane, Wheelchair, Crutches, etc.)? No PATIENT GENDER DATA: Female. status: : No status: NO. PATIENT RELEVANT IMPLANT DATA REVIEWED: Yes RADIOLOGY DEPARTMENT: General X-ray: Exam(s) Completed: Lower Extremity X-Ray(s): Toes, Left PERIPHERAL IV DATA: Not applicable SIGNED BY: RT Renny(R) May 08, 2023 9:40 [facility]07-10-2023 History of Present illness Narrative* Missy Gimenez PA-C - 05/08/2023 10:48 AM EDT This note was created using [employer]. Subjective Kwadwo Mendieta is a 23 year old female. HPI Presents with left fifth toe pain after hitting her foot at the end of the step yesterday. She had slipped on the step and then hit it at the edge of the wall at the end of the step. She has been walking on it but it is painful. She denies any other injuries. 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 Review of Systems Musculoskeletal: Left foot/toe pain PAST MEDICAL HISTORY Diagnosis Date Acute bronchiolitis due to respiratory syncytial virus (RSV) as baby hospitalized. Unspecified asthma(493.90) dxed age 6 initially on Singulair which caused Caba; Current Outpatient Medications Medication Sig Dispense Refill CHANDLER FE 11/18, 28, 1 mg-20 mcg (21)/75 mg (7) per tablet Take 1 tablet by mouth every afternoon. ibuprofen (MOTRIN) 800 mg tablet Take 1 tablet 3 x a day in 2 week courses (Patient not taking: Reported on 05/08/2023) 90 tablet 3 ibuprofen 200 mg tablet Take 1 tablet by mouth every 6 hours as needed. (Patient not taking: Reported on 05/08/2023) 0 fluticasone (FLOVENT HFA) 44 mcg/actuation inhaler Inhale 2 Puffs as instructed once daily. VIA SPACER (Patient not taking: Reported on 05/08/2023) 1 Inhaler 8 albuterol HFA (VENTOLIN HFA) 90 mcg/Actuation INHALATION HFAA 2 puffs via spacer every 4-6 hours (Patient not taking: Reported on 05/08/2023) 1 2 No current facility-administered medications for this visit. PAST SURGICAL HISTORY Procedure Laterality Date NONE FAMILY HISTORY Problem Relation Age of Onset Asthma Other gparents, cousin Hypertension Maternal Grandfather Genitourinary () Maternal Grandfather Cancer Paternal Grandfather lung Social History Tobacco Use Smoking status: Never Objective BP 116/82 Pulse 96 Temp 36.3 C (97.4 F) Resp 18 Wt 62.7 kg (138 lb 3.2 oz) LMP 07/30/2013 SpO2 100% Physical Exam Vitals reviewed. Constitutional: Appearance: Normal appearance. HENT: Head: Normocephalic and atraumatic. Musculoskeletal: Comments: Exam of the left foot reveals bruising and swelling to the fifth toe. She is tender on palpation and with range of motion. Some tenderness to the distal fifth metatarsal as well. Pedal pulses 2+. Able to ambulate. Skin: General: Skin is warm and dry. Neurological: Mental Status: She is alert. Assessment and Plan ASSESSMENT/PLAN: 1. Toe injury, left, initial encounter - ICD9: 959.7, ICD10: S99.922A I did not see any obvious fractures, radiology read is pending. I did offer a postop shoe, patient declined. Recommended faby taping and will call on results. Ice, ibuprofen, rest. Follow-up with PCP. Patient agreeable. 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 RIGHT KNEE ARTHROSCOPIC DEBRIDEMENT, LATERAL RELEASE Anesthesia: No anesthesiologist associated with this case Estimated Blood Loss: minimal Findings: pfs Operative Report: Preoperative diagnosis right knee synovitis with patellofemoral syndrome Postoperative diagnosis same with significant lateral tilt of the patella Procedure right knee arthroscopy arthroscopic synovectomy with arthroscopic lateral release Anesthesia Gen. Blood loss less than 10 cc Primary surgeon Yasir Abreu M.D. Assisting Jaycob VIEIRA certified The physician education administrative assistant was present through the entire case. Given the nature of the disease process and the procedure to be performed skilled surgical services director was necessary during the case. The education administrative assistant was necessary to hold retractors and manipulate the extremity during the procedure. A certified flight instructor was at the back table managing the instruments and supplies for the surgical case. Prior to taking the patient to the operating room the surgical site was marked the H&P was reviewed updated in signed and patient received appropriate preoperative antibiotics The patient has had problems with the knee that have failed to respond to conservative treatment, and the patient presents today for knee arthroscopy the procedure its risks, potential complications and treatment alternatives were discussed with the patient who understood and wished to proceed The patient was taken to the operating room and placed on the table in supine position where upon adequate general anesthesia was then obtained. The patient was then prepped and draped in the usual sterile manner. A surgical timeout was then performed and the site marking was rechecked. Standard anteromedial and anterolateral joint line portals were made using an 11 blade for the skin and the blunt trochars. A systematic evaluation of the knee joint was then performed. The patellofemoral joint showed no evidence of chondromalacia but significant lateral tilt of the patella and very tight lateral retinaculum. Used a combination of the David surface and the shaver to perform a lateral release from the vastus lateralis musculature all the way down to the level of the joint line. There was significant retraction of the patella once this was complete and patellofemoral tracking was anatomic once the release was completed. There was significant synovitis in the prepatellar region which was debrided using the shaver as well. Medial and lateral gutters were then inspected Medial compartment showed[no abnormalities] Lateral compartment showed[no abnormalities] ACL and PCL were then inspected[and probed and stable without abnormality] Finally, the knee joint was irrigated with a copious amount of saline irrigation through the portals. An the portals were closed using 4-0 nylon suture. The knee joint was infiltrated with 30 cc of half percent Marcaine. A dry sterile bulky dressing was applied. The patient tolerated the procedure well and was taken to the recovery room in good condition without complication to be discharged home same day. This note was prepared using voice recognition software. The details of this note are correct and have been reviewed, and corrected to the best of my ability. Some grammatical areas may persist related to the [employer] software Yasir Abreu MD Signatures/Attestation: Note Completion: Attending AttestationI performed the procedure without a resident Electronic Signatures: Yasir Abreu SAMANTHA) (Signed 19-Oct-2020 12:59) Authored: Post-Operative Note, Chart Review, Note Completion Last Updated: 19-Oct-2020 12:59 by Yasir Abreu)[facility]12-21-2020 NoteHistory & Physical Reviewed: /Lactating: Are You no Are You Currently Breastfeedingno I have reviewed the History and Physical dated: 19-Oct-2020 History and Physical reviewed and relevant findings noted. Patient examined to review pertinent physical findings.: No significant changes Home Medications Reviewed: no changes noted Allergies Reviewed: no changes noted Consent: COVID-19 Consent: COVID-19 Risk ConsentSurgeon has reviewed rios risks related to the risk of frankie COVID-19 and if they contract COVID-19 what the risks are. Signatures/Attestation: Note Completion: Attending Provider Inpatient Certification StatementObservation patient/other outpatient visits Electronic Signatures: Yasir Abreu) (Signed 19-Oct-2020 10:10) Authored: History & Physical Reviewed, Consent, Note Completion Last Updated: 19-Oct-2020 10:10 by Yasir Abreu)[facility]12-21-[facility] NoteHistory of Present Illness: History Present Illness: Reason for surgery: Right knee pain HPI: 20 y/o female with Right knee pain presents for Right knee arthroscopic surgery. She has been treated with many rounds of conservative treatment such as physical therapy and bracing, without much relief. She continues to have dysfunction and pain, mostly around the patellofemoral joint. Allergies: Allergies: Keppra: Hives/Urticaria Shell Fish: Hives/Urticaria Home Medication Review: Home Medications Reviewed: yes Impression/Procedure: Impression and Planned Procedure: Right knee arthroscopic debridement, possible lateral release ERAS (Enhanced Recovery After Surgery): ERAS Patient: no Review of Systems: Review of Systems: Constitutional: NEGATIVE: Fever, Chills, Malaise Eyes: NEGATIVE: Redness ENMT: NEGATIVE: Nasal Discharge, Nasal Congestion, Mouth Pain, Throat Pain Respiratory: NEGATIVE: Dry Cough, Productive Cough, Wheezing, Shortness of Breath Cardiac: NEGATIVE: Chest Pain, Dyspnea on Exertion, Palpitations Gastrointestinal: NEGATIVE: Nausea, Vomiting, Constipation Musculoskeletal: POSITIVE: Decreased ROM, Pain, Swelling, Weakness Physical Exam by System: Constitutional: Well developed, awake/alert/oriented x3, no distress, alert and cooperative Eyes: PERRL, EOMI, clear sclera ENMT: mucous membranes moist, no apparent injury, no lesions seen Head/Neck: Neck supple, no apparent injury, thyroid without mass or tenderness, No JVD, trachea midline, no bruits Respiratory/Thorax: Patent airways, CTAB, normal breath sounds with good chest expansion, thorax symmetric Cardiovascular: Regular, rate and rhythm, no murmurs, 2+ equal pulses of the extremities, normal S 1and S 2 Gastrointestinal: Nondistended, soft, non-tender, no rebound tenderness or guarding, no masses palpable, no organomegaly, +BS, no bruits Musculoskeletal: Right knee is NVI. She has pain over the PF joint. Crepitus over PF joint. No instability. Mild edema. 2+ pulses. Mild weakness over quads. No infection. Neurological: alert and oriented x3, intact senses, motor, response and reflexes, normal strength Lymphatic: No significant lymphadenopathy Psychological: Appropriate mood and behavior Skin: Warm and dry, no lesions, no rashes Consent: COVID-19 Consent: COVID-19 Risk ConsentSurgeon has reviewed rios risks related to the risk of frankie COVID-19 and if they contract COVID-19 what the risks are. Signatures/Attestation: Note Completion: I am a: Advanced Practice Provider Attending Only - Shared Visit with Advanced Practice ProviderThis is a shared visit. I have reviewed the Advanced Practice Providers encounter note, approve the Advanced Practice Providers documentation, and provide the following additional information from my personal encounter. Comments/ Additional Findings Nonoperative and operative treatment options were discussed. The risks, benefits, alternatives, and possible complications of the procedure were discussed with the patient including but not limited to infection, bleeding, injury to nerves and surrounding structures, and anesthesia risks. Additional possibilities of , need for further surgery, and loss of life or limb. All questions were answered. The patient indicated an understanding of these risks and benefits and consented to the procedure. Attending Provider Inpatient Certification StatementObservation patient/other outpatient visits Electronic Signatures: Jaycob Kc (BOYD) (Signed 18-Oct-2020 23:37) Authored: History of Present Illness, Allergies, Home Medication Review, Impression/Procedure, ERAS, Review of Systems, Physical Exam, Consent, Note Completion Yasir Abreu) (Signed 19-Oct-2020 06:13) Authored: Note Completion Co-Signer: History of Present Illness, Allergies, Home Medication Review, Impression/Procedure, ERAS, Review of Systems, Physical Exam, Consent, Note Completion Last Updated: 19-Oct-2020 06:13 by Yasir Abreu)[facility]03-24-2014 History of Past illness Narrative* Problem Noted Date Diagnosed Date Resolved Date Patellar tendinitis of right knee 01/20/2014 11/27/2023 Left lateral knee pain 01/20/201411/27 documented as of this encounter (statuses as of 12/05/2023) [facility]* Diagnosis Toe injury, left, initial encounter- Primary documented in this encounter [facility] note* Diagnosis Encounter for gynecological examination (general) (routine) without abnormal findings- Primary documented in this encounter [facility] note* Diagnosis with uncertain dates in first trimester- Primary Encounter for supervision of normal first in first trimester Supervision of normal first Mild intermittent asthma without complication Unspecified asthma Hx of migraines Personal history of other disorders of nervous system and sense organs Occasional tremors Abnormal involuntary movements Genetic screening Other genetic screening documented in this encounter [facility] note* Diagnosis Encounter for supervision of normal first in first trimester- Primary Supervision of normal first documented in this encounter [facility] note* Diagnosis First trimester screening- Primary Other specified screening 13 weeks gestation of state, incidental [facility] Name Dates Details Instructions not documented [facility] Work Phone: Reason for referral (narrative)* Diagnostic Procedure Only (Urgent) - Closed Specialty Diagnoses / Procedures Referred By Frida t Referred To Contact XR IMAGING Diagnoses Toe injury, left, initial encounter Procedures XR TOE AP/LAT/OBL LEFT RADEX TOE MINIMUM 2 VIEWS Missy Gimenez PA-C [address] [place] [address] Xr Imaging Referral ID Status Reason Start Date Expiration Date V isits Requested Visits Authorized [id number] Closed Auto-Generate d Referral 05/08/2023 06/06/2024 1 1 [facility] for referral (narrative)* Diagnostic Procedure Only (Routine) - Pending Review Specialty Diagnoses / Procedures Referred By Frida t Referred To Contact [facility] Diagnoses with uncertain dates in first trimester Procedures NUCHAL TRANSLUCENCY WHI US NUCHAL TRANSLUCENCY 1ST GESTATION Barrett Sanchez APRN.CNM [address] [place] [address] [address] Referral ID Status Reason Start Date Expiration Date Visits Requested Visits Authorized [id number] Pending Review Auto-Generat ed Referral 11/27/2023 11/26/2024 1 1 * Diagnostic Procedure Only (Routine) - Pending Review Specialty Diagnoses / Procedures Referred By Frida wilburn Referred To Contact [facility] Diagnoses with uncertain dates in first trimester Procedures OBSTETRIC ULTRASOUND WHI US PREG UTERUS AFTER 1ST TRIMEST 1/ GESTATION Barrett Sanchez APRN.CNM [address] [place] [address] [facility] [address] [place] [address] Referral ID Status Reason Start Date Expiration Date Visits Requested Visits Authorized [id number] Pending Review Auto-Generat ed Referral 11/27/2023 11/26/2024 1 1 [facility] Summary Purpose Family History No Family History Records Found Grandmother Name Dates Details Family history of dementia(V 17.2, Z81.8) Status:Active Family history of Parkinson disease, symptomatic(332.0, G20) Status:Active Mother Name Dates Details Family history of hypertensi on(V17.49, Z82.49) Status:Active Sister Name Dates Details Family history of asthma(V17 .5, Z82.5) Status:Active Grandmother Name Dates Details Family history of dementia(V 17.2, Z81.8) Status:Active Family history of Parkinson disease, symptomatic(332.0, G20) Status:Active Mother Name Dates Details Family history of hypertensi on(V17.49, Z82.49) Status:Active Sister Name Dates Details Family history of asthma(V17 .5, Z82.5) Status:Active Grandmother Name Dates Details Family history of dementia(V 17.2, Z81.8) Status:Active Family history of Parkinson disease, symptomatic(332.0, G20) Status:Active Mother Name Dates Details Family history of hypertensi on(V17.49, Z82.49) Status:Active Sister Name Dates Details Family history of asthma(V17 .5, Z82.5) Status:Active Grandmother Name Dates Details Family history of dementia(V 17.2, Z81.8) Status:Active Family history of Parkinson disease, symptomatic(332.0, G20) Status:Active Mother Name Dates Details Family history of hypertensi on(V17.49, Z82.49) Status:Active Sister Name Dates Details Family history of asthma(V17 .5, Z82.5) Status:Active Grandmother Name Dates Details Family history of dementia(V 17.2, Z81.8) Status:Active Family history of Parkinson disease, symptomatic(332.0, G20) Status:Active Mother Name Dates Details Family history of hypertensi on(V17.49, Z82.49) Status:Active Sister Name Dates Details Family history of asthma(V17 .5, Z82.5) Status:Active Advance Directives No Advanced Directives Records FoundDocuments on File Type Date Recorded Patient Departmental Secretary Expl anation Advance Directives and Livin g Will 12/09/2020 1:55 PM Discharge Instructions * Instructions* Joie Rai, CNC MILL PROGRAMMER - 12/09/2020 Please follow-up with [facility] and their exposure protocol. * Attachments The following attachments cannot be sent through Care Everywhere. * Exposure: Blood and Body Fluids (Martiniquais) documented in this encounter Assessments Diagnosis Exposure to blood or body fluid- Primary Health Concerns Problem Noted Date Diagnosed Date [facility] Education - [facility] 11/27/2023 Education - [place] 11/27/2023 Problem Noted Date Diagnosed Date [facility] Education - [facility] 11/27/2023 Education - [place] 11/27/2023 Problem Noted Date Diagnosed Date [facility] - [facility] 11/27/2023 Education - [place] 11/27/2023 Additional Source Comments INFORMATION SOURCE (unrecogn ized section and content) DATE CREATED AUTHOR AUTHOR'S ORGANIZ ATION 01/11/2019 [facility] Healthcare DATE CREATED AUTHOR AUTHOR'S ORGANIZ ATION 07/31/2019 [facility] DATE CREATED AUTHOR AUTHOR'S ORGANIZ ATION 11/13/2020 [facility] ical Center DATE CREATED AUTHOR AUTHOR'S ORGANIZ ATION 02/16/2021 [facility] DATE CREATED AUTHOR AUTHOR'S ORGANIZ ATION 02/22/2021 [facility] DATE CREATED AUTHOR AUTHOR'S ORGANIZ ATION 03/02/2021 [facility] DATE CREATED AUTHOR AUTHOR'S ORGANIZ ATION 10/04/2021 [facility] DATE CREATED AUTHOR AUTHOR[facility]S ORGANIZ ATION [facility] DATE CREATED AUTHOR AUTHOR'S ORGANIZ ATION 01/04/2024 [facility] Reason for Visit (unrecogniz ed section and content) Reason Comments Pain (foot) Top of L foot and fi fth toe pain after falling down stairs x last night Reason Comments Results Reason Comments Well Woman Reason Onset Date Comments Care 12/26/2023 Reason Comments US Specialty Diagnoses / Procedures Referred By Frida wilburn Referred To Contact [facility] Diagnoses with uncertain dates in first trimester Procedures NUCHAL TRANSLUCENCY WHI US NUCHAL TRANSLUCENCY 1ST GESTATION Barrett Sanchez APRN.STIVEN [address] [place] [address] [facility] [address] [place] [address] Referral ID Status Reason Start Date Expiration Date V isits Requested Visits Authorized [id number] Closed Auto-Generate d Referral 11/27/2023 11/26/2024 1 1 Elana Alberts RN - 12/09/2020 4:38 PM Elana Darby RN - 12/09/2020 4:38 PM Elana Darby RN - 12/09/2020 4:27 PM Elana Darby RN - 12/09/2020 4:12 PM ESTElana Alberts RN - 12/09/2020 1:25 PM EST ED Notes (unrecognized secti on and content) Discharge instructions provided to pt, pt verbalizes understanding and denies questions. Pt A&Ox3, resp =/unlabored, no s/s of distress noted. Pt ambulatory at discharge. Joie JUARES provided discharge paperwork Per Nursing Licensed Physical Therapy Assistant, lab is fixing the problem at this time. Pt made aware. This RN called regarding blood work for pt. Per Alesia, those are send outs to [facility]. This RN notified Joie JUARES at this time. ED PROVIDER NOTE [facility] EMERGENCY DEPARTMENT NAME: Kwadwo Mendieta AGE: 20 y.o. : 2000 VISIT DATE: 12/09/2020 CSN: [id number] PCP: Provider Not in System No chief complaint on file. [facility] certified nursing assistant presents to ED reporting exposure to body fluid. States she was discontinuing an IV on a patient upstairs and a small amount of the patient's blood got on her left forearm. She immediately washed the area. All vaccinations up-to-date. Past Medical History: Diagnosis Date Asthma Eczema Past Surgical History: Procedure Laterality Date KNEE SURGERY 10/19/2020 R knee History reviewed. No pertinent family history. Social History Socioeconomic History Marital status: Single Spouse name: Not on file Number of children: Not on file Years of education: Not on file Highest education level: Not on file Occupational History Not on file Social Needs Financial resource strain: Not on file Food insecurity Worry: Not on file Inability: Not on file Transportation needs Medical: Not on file Non-medical: Not on file Tobacco Use Smoking status: Never Smoker Smokeless tobacco: Never Used Substance and Sexual Activity Alcohol use: Not Currently Comment: occasionally Drug use: Never Sexual activity: Not on file Lifestyle Physical activity Days per week: Not on file Minutes per session: Not on file Stress: Not on file Relationships Social connections Talks on phone: Not on file Gets together: Not on file Attends religion service: Not on file Active member of club or organization: Not on file Attends meetings of clubs or organizations: Not on file Relationship status: Not on file Other Topics Concern Not on file Social History Narrative Not on file No current outpatient medications on file prior to encounter. Allergies Allergen Reactions Keppra [Levetiracetam] Hives and Swelling Shellfish Derived Hives Review of Systems Constitutional: Negative. Respiratory: Negative. Cardiovascular: Negative. Musculoskeletal: Negative. Skin: Negative. Patient Vitals for the past 24 hrs: BP Temp Temp src Pulse Resp SpO2 Height Weight 12/09/20 1627 88 12/09/20 1325 (!) 140/95 98.2 F (36.8 C) Oral (!) 102 18 98 % 5' 1 62.1 kg (137 lb) Physical Exam Constitutional: Appearance: Normal appearance. Cardiovascular: Rate and Rhythm: Normal rate and regular rhythm. Pulses: Normal pulses. Heart sounds: Normal heart sounds. Pulmonary: Effort: Pulmonary effort is normal. Breath sounds: Normal breath sounds. Musculoskeletal: Normal range of motion. Skin: General: Skin is warm and dry. Capillary Refill: Capillary refill takes less than 2 seconds. Neurological: General: No focal deficit present. Mental Status: She is alert and oriented to person, place, and time. Laboratory & Radiographic Imaging (if done): No results found for this visit on 12/09/20. No orders to display Procedures MDM Number of Diagnoses or Management Options Exposure to blood or body fluid Diagnosis management comments: Upon examination, I do not appreciate any open areas plaques scales wounds lesions or sores on the left forearm. Discussed with Fifi Tran, patient's clinical nursing intern and [facility]'s position is since the patient was anxious over getting blood on her forearm that she should come to ED for evaluation. Na, charge nurse spoke with nursing warehouse freight handler Lilo, and patient should have exposure labs drawn. Updated both patient and patient's clinical nursing intern. [id number] Nagy reported source pt negative. Patient discharged at this time verbalizes understanding to follow-up with [facility] post exposure protocol. The patient has been informed that they may have pre-hypertension or hypertension based on a blood pressure reading in the Emergency Department. I recommend that the patient call the primary care provider listed on their discharge instructions or a physician of their choice as soon as possible to arrange follow-up in the next 4 weeks for further evaluation of possible pre-hypertension or hypertension. . Clinical Impression: 1. Exposure to blood or body fluid ED Disposition ED Disposition Condition Comment Discharge Stable Kwadwo Mendieta discharged to home/self care in stable condition. Follow-up Information 1. Follow-up with [facility] per their exposure protocol. Why: Call today to arrange for follow-up Contact information for after-discharge care Follow-up information has not been specified. Joie Rai CNP 12/09/20 1638 Pt was attending clinicals here and removed an IV. The patient was attempting another IV and somehow got blood on L arm where she has eczema. Pt washed arm after she noticed the exposure. Bed: 35 Expected date: Expected time: Means of arrival: Comments: Runner Needed documented in this encounter ED Attestation Note - Jarod Garcia MD - 12/09/2020 1:28 PM EST Miscellaneous Notes (unrecog nized section and content) ED Attestation: I was personally available for consult in the ED for this patient, if the Advanced Practice Provider (LINCOLN) needed any assistance. The LINCOLN evaluated the patient independently for a complaint of No chief complaint on file., and completed their own examination, documentation, and discharge. documented in this encounter Source Comments (unrecognize d section and content) In the event this informatio n is protected by the Federal Confidentiality of Alcohol and Drug Abuse Patient Records regulations: The Federal rules restrict any use of the information to criminally investigate or prosecute any alcohol or drug abuse patient.[facility] the event this information is protected by the Federal Confidentiality of Alcohol and Drug Abuse Patient Records regulations: The Federal rules restrict any use of the information to criminally investigate or prosecute any alcohol or drug abuse patient.[facility] the event this information is protected by the Federal Confidentiality of Alcohol and Drug Abuse Patient Records regulations: The Federal rules restrict any use of the information to criminally investigate or prosecute any alcohol or drug abuse patient.[facility] the event this information is protected by the Federal Confidentiality of Alcohol and Drug Abuse Patient Records regulations: The Federal rules restrict any use of the information to criminally investigate or prosecute any alcohol or drug abuse patient.[facility] the event this information is protected by the Federal Confidentiality of Alcohol and Drug Abuse Patient Records regulations: The Federal rules restrict any use of the information to criminally investigate or prosecute any alcohol or drug abuse patient.[facility] the event this information is protected by the Federal Confidentiality of Alcohol and Drug Abuse Patient Records regulations: The Federal rules restrict any use of the information to criminally investigate or prosecute any alcohol or drug abuse patient.[facility] FOR RECORDS PERTAINING TO PATIENTS WHO ARE OR HAVE BEEN ENROLLED IN A CHEMICAL DEPENDENCY/SUBSTANCEABUSE PROGRAM, SOME INFORMATION MAY BE OMITTED. This clinical summary was aggregated from multiple sources. Caution should be exercised in using it in the provision of clinical care. This summary normalizes information from multiple sources, and as a consequence, information in this document may materially change the coding, format and clinical context of patient data. In addition, data may be omitted in some cases. CLINICAL DECISIONS SHOULD BE BASED ON THE PRIMARY CLINICAL RECORDS. [facility] [employer] [facility]. provides no warranty or guarantee of the accuracy or completeness of information in this document.
[2024-01-12 19:49] VITALS: BP 120/78; PULSE 75; RESP 16; O2SAT 93
[2024-01-12 21:00] VITALS: BP 124/79; PULSE 65; RESP 16; TEMP 37; O2SAT 99
== END 2024-01-12 21:20 | disposition home or self-care (01) ==
PROVIDERS: Emergency Medicine; Emergency Provider Student in an Organized Health Care Education/Training Program; PCP Internal Medicine; Visit Provider Student in an Organized Health Care Education/Training Program
DX: O26.892 Other specified pregnancy related conditions, second trimester (principal); Z3A.15 15 weeks gestation of pregnancy; R10.9 Unspecified abdominal pain; Z87.440 Personal history of urinary (tract) infections
CPT/HCPCS: 76815; 80048; 81001; 84702; 84703; 85025; 99283

== ENCOUNTER 2024-04-27 01:50 | Outpatient (CLI) | payer OTHER, SELFPAY ==
[2024-04-27 01:54] VITALS: BMI 32.5
[2024-04-27 02:02] VITALS: BP 123/58; PULSE 95; RESP 14; TEMP 36.8; O2SAT 0
--- NOTE | 2024-04-27 03:08 | OB.TRI.NOTE ---
HPI - General General Date of Admission: 04/27/24 Date of Service: 04/27/24 Chief Complaint: DFM HPI Narrative KWADWO RODRIGUES, is a 24 F who presents with DFM when doing kick counts tonight. No other complaints. PFSH PFS Medical History Asthma Asthma H pylori ulcer Hives Migraine Pneumonia UTI (urinary tract infection) Home Medications ?Medication ?Instructions ?Recorded ?Last Taken ?Type ondansetron 4 mg disintegrating 8 mg (2 x 4 mg) PO Q8H PRN PRN 09/01/23 Unknown Rx tablet Nausea #30 tabs pantoprazole 40 mg tablet,delayed 40 mg PO DAILY #14 tabs 09/01/23 Unknown Rx release albuterol sulfate 90 mcg/actuation 1 inh inhalation ONCE 09/18/23 Unknown History aerosol inhaler cyclobenzaprine 10 mg tablet 10 mg PO Q12H 04/27/24 Unknown History vit no.95-ferrous 1 tab PO DAILY 04/27/24 04/26/24 History fumarate 28 mg-folic acid 800 mcg tablet () Allergy/AdvReac Type Severity Reaction Status Date / Time shellfish derived Allergy Severe Hives Verified 01/12/24 17:51 levetiracetam (From 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[employer] Smoking Status: Never smoker Electronic Cigarette Use: not used second hand exposure: No alcohol intake: current alcohol intake frequency: a few times a month substance use type: does not use what type of physical activity do you participate in: walking frequency: 3-4 times per week do you feel safe at home: Yes NST FHR Rate Baby A Baseline: 130 Variability:: Moderate Accelerations:: 15 x 15 Decelerations:: None NST Reactive:: Yes FHR Category:: Category I Uterine Activity:: none Assessment & Plan (1) Decreased movement: PLAN: NST reactive Pt now feeling FM D/c home (2) 30 weeks gestation of :
== END 2024-04-27 02:50 | disposition home or self-care (01) ==
LOC: WPOUT 01:53 → WP 01:53
PROVIDERS: PCP Internal Medicine; Referring Provider Obstetrics & Gynecology; Visit Provider Obstetrics & Gynecology
DX: O36.8130 Decreased fetal movements, third trimester, not applicable or unspecified (principal); Z3A.30 30 weeks gestation of pregnancy; J45.909 Unspecified asthma, uncomplicated; O99.513 Diseases of the respiratory system complicating pregnancy, third trimester
CPT/HCPCS: 59025; 59050; 99221; G0378

== ENCOUNTER 2024-05-15 05:25 | Outpatient (CLI) | payer OTHER, SELFPAY ==
[2024-05-15] VITALS (11 sets, daily range): BP systolic 118–137; BP diastolic 61–99; PULSE 67–86; RESP 16; TEMP 36.7; O2SAT 99–100; BMI 32.0
[2024-05-15] MEDS: Mag Hydrox/Al Hydrox/Simeth 30 ML UDC PO (06:43)
--- NOTE | 2024-05-19 12:01 | OB.TRI.NOTE ---
HPI - General General Date of Service: 05/15/24 HPI Narrative KWADWO RODRIGUES, is a 24 F who presents for headache. Maternal Data Information ADRIANO Calculator Estimated Delivery Date Method Current WG Current Estimate 07/06/24 Manual 33w 1d PFSH PFS Medical History Asthma Asthma H pylori ulcer Hives Migraine Pneumonia UTI (urinary tract infection) Home Medications ?Medication ?Instructions ?Recorded ?Last Taken ?Type vit no.95-ferrous 1 tab PO DAILY 04/27/24 05/16/24 22:00 History fumarate 28 mg-folic acid 800 mcg tablet () Allergy/AdvReac Type Severity Reaction Status Date / Time shellfish derived Allergy Severe Hives Verified 05/17/24 17:21 levetiracetam (From Keppra) AdvReac Severe Hives Verified 05/17/24 17:21 sumatriptan (From Imitrex) AdvReac Unknown Other Verified 05/17/24 17:21 Family History Sister Asthma Grandfather Cancer lung Grandmother Diabetes Parkinson disease Alzheimer disease Aunt Diabetes Uncle Diabetes Mother Hypertension Thyroid disorder Father Hypertension Grandfather Kidney disease Surgical History H/O knee surgery [place] teeth extracted Social History household members: spouse current occupational status: employed 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 Smoking Status: Never smoker Electronic Cigarette Use: not used second hand exposure: No alcohol intake: current alcohol intake frequency: a few times a month substance use type: does not use what type of physical activity do you participate in: walking frequency: 3-4 times per week do you feel safe at home: Yes NST FHR Rate Baby A Baseline: 125 Variability:: Moderate Accelerations:: 15 x 15 Decelerations:: None NST Reactive:: Yes Uterine Activity:: quiet Assessment & Plan (1) Headache: QUALIFIERS: Headache type: unspecified Headache chronicity pattern: unspecified pattern Intractability: not intractable Qualified Code(s): R51.9 - Headache, unspecified PLAN: Plan Reactive NST
== END 2024-05-15 08:18 | disposition home or self-care (01) ==
LOC: WPOUT 05:29 → WP 05:30
PROVIDERS: PCP Internal Medicine; Referring Provider Obstetrics & Gynecology; Visit Provider Obstetrics & Gynecology
DX: O99.891 Other specified diseases and conditions complicating pregnancy (principal); R51.9 Headache, unspecified; Z3A.32 32 weeks gestation of pregnancy
CPT/HCPCS: 59025; 59050; 99221; G0378

== ENCOUNTER 2024-05-17 17:05 | Outpatient (CLI) | payer OTHER, SELFPAY ==
[2024-05-17 17:18] VITALS: BMI 31.6
[2024-05-17 17:25] VITALS: BP 134/77; PULSE 81
[2024-05-17 17:40] VITALS: BP 121/84; PULSE 80
[2024-05-17 17:43] LABS: Mean Corp Hgb Conc 34.4 g/dL (32-36); Mean Corpuscular Hgb 32.5 pg (27.0-32.0); Mean Corpuscular Volume 94.7 fL (81-99); Mean Platelet Vol. 11.3 fl (6.2-12.0); Platelet Count 178 K/mm3 (150-450); RBC Distribution Width CV 12.7 % (11.6-14.6); RBC Distribution Width SD 43.8 fl (35.1-43.9); Red Blood Count 3.38 M/mm3 (4.2-5.4); White Blood Count 11.1 K/mm3 (4.4-11.0)
[2024-05-17 17:54] VITALS: BP 117/64; PULSE 89
[2024-05-17 18:09] LABS: AST(SGOT) 14 U/L (15-37); Alanine Aminotransfer ALT/SGPT 17 U/L (13-56); Creatinine, Serum 0.58 mg/dL (0.55-1.02); EST Glomerular Filtration Rate 133 mL/min (>60); Est Glom Filt Rate - Afr Amer 161 mL/min (>60); Estimated Creatinine Clearance 143.84 ml/min; Uric Acid 4.1 mg/dL (2.6-6.0)
[2024-05-17 18:10] VITALS: BP 117/71; PULSE 73
[2024-05-17 18:26] VITALS: BP 128/65; PULSE 75
[2024-05-17 18:35] LABS: Protein, Urine (Random) 6.8 mg/dL (<11.9); Protein:Creat Ratio 141 mg/g CRE (0-200)
[2024-05-17 18:39] VITALS: BP 122/66; PULSE 81
--- NOTE | 2024-05-17 22:45 | OB.TRI.NOTE ---
HPI - General HPI Narrative KWADWO RODRIGUES, is a 24 F who presents to triage with headache. She reports taking blood pressure at home which was 150/100's. Denies any vision changes. Recently seen in triage two days ago for similar symptoms. Positive movement. Denies any loss of fluid or vaginal bleeding. Maternal Data Information ADRIANO Calculator Estimated Delivery Date Method Current WG Current Estimate 07/06/24 Manual 32w 6d Final ADRIANO: 07/06/24 PFSH PFSH Medical History Asthma Asthma H pylori ulcer Hives Migraine Pneumonia UTI (urinary tract infection) Home Medications ?Medication ?Instructions ?Recorded ?Last Taken ?Type vit no.95-ferrous 1 tab PO DAILY 04/27/24 05/16/24 22:00 History fumarate 28 mg-folic acid 800 mcg tablet () Allergy/AdvReac Type Severity Reaction Status Date / Time shellfish derived Allergy Severe Hives Verified 05/17/24 17:21 levetiracetam (From Keppra) AdvReac Severe Hives Verified 05/17/24 17:21 sumatriptan (From Imitrex) AdvReac Unknown Other Verified 05/17/24 17:21 Family History Sister Asthma Grandfather Cancer lung Grandmother Diabetes Parkinson disease Alzheimer disease Aunt Diabetes Uncle Diabetes Mother Hypertension Thyroid disorder Father Hypertension Grandfather Kidney disease Surgical History H/O knee surgery [place] teeth extracted Social History household members: spouse current occupational status: employed 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[employer] Smoking Status: Never smoker Electronic Cigarette Use: not used second hand exposure: No alcohol intake: current alcohol intake frequency: a few times a month substance use type: does not use what type of physical activity do you participate in: walking frequency: 3-4 times per week do you feel safe at home: Yes ROS Eyes Eyes: Denies blurry vision Cardiovascular Cardiovascular: Reports none; Denies chest pain at rest, chest pain with activity or dizziness Respiratory/Chest Respiratory/Chest: Denies cough or dyspnea Gastrointestinal Gastrointestinal: Reports none and other; Denies diarrhea or vomiting Genitourinary Genitourinary: Denies dysuria Musculoskeletal Musculoskeletal: Reports none Integumentary Integumentary: Reports none; Denies rash Neurologic Neurologic: Reports headache(s); Denies dizziness or other visual disturbances Psychiatric Psychiatric: Reports none Physical Exam Const alert and no apparent distress General Appearance: cooperative Orientation / Consciousness: awake Exam Limitations: no limitations HEENT normocephalic Eyes General Eye: normal appearance of both eyes Neck full ROM Chest inspection of chest normal Resp normal respiratory effort and normal air movement Effort and Inspection: symmetric chest movement Auscultation: clear to auscultation bilaterally Cardio regular rate GI soft to palpation, non-tender and non-distended Inspection: and other Back/Spine normal ROM Extremity full ROM, normal capillary refill and no calf tenderness Skin no rashes or lesions noted Neuro oriented x3 and CN's II-XII intact bilaterally Psych mental status grossly normal NST FHR Rate Baby A Baseline: 130 Variability:: Moderate Accelerations:: 15 x 15 Decelerations:: None NST Reactive:: Yes FHR Category:: Category I Uterine Activity:: None Assessment & Plan (1) Elevated blood pressure affecting in third trimester, antepartum: (2) Headache: (3) 32 weeks gestation of : PLAN: Plan Blood pressures monitored in triage- normal ranges BP range 117-134/ 64-84 No severe range pressures PIH labs - normal Headache resolved NST reactive for gestational age D/C home with follow up in office Dr. Hampton notified of assessment and plan
== END 2024-05-17 19:01 | disposition home or self-care (01) ==
LOC: WPOUT 17:05 → WP 17:06
PROVIDERS: PCP Internal Medicine; Referring Provider Advanced Practice Midwife; Visit Provider Advanced Practice Midwife
DX: O99.891 Other specified diseases and conditions complicating pregnancy (principal); R51.9 Headache, unspecified; J45.909 Unspecified asthma, uncomplicated; R03.0 Elevated blood-pressure reading, without diagnosis of hypertension; Z3A.32 32 weeks gestation of pregnancy; O99.513 Diseases of the respiratory system complicating pregnancy, third trimester
CPT/HCPCS: 36415; 59025; 59050; 82565; 82570; 84156; 84450; 84460; 84550; 85027; 99221; G0378

== ENCOUNTER 2024-05-28 14:42 | Outpatient (CLI) | payer OTHER, SELFPAY ==
[2024-05-28] VITALS (7 sets, daily range): BP systolic 128–144; BP diastolic 82–85; PULSE 86–190; RESP 16; TEMP 36.6; O2SAT 79; BMI 32.6
[2024-05-28 15:43] LABS: AST(SGOT) 15 U/L (15-37); Alanine Aminotransfer ALT/SGPT 16 U/L (13-56); Creatinine, Serum 0.68 mg/dL (0.55-1.02); EST Glomerular Filtration Rate 112 mL/min (>60); Est Glom Filt Rate - Afr Amer 135 mL/min (>60); Estimated Creatinine Clearance 124.71 ml/min; Uric Acid 4.3 mg/dL (2.6-6.0)
[2024-05-28 15:49] LABS: Hematocrit 30.6 % (37-47); Hemoglobin 10.6 g/dL (12.0-15.0); Mean Corp Hgb Conc 34.6 g/dL (32-36); Mean Corpuscular Hgb 33.1 pg (27.0-32.0); Mean Corpuscular Volume 95.6 fL (81-99); Mean Platelet Vol. 11.7 fl (6.2-12.0); Platelet Count 171 K/mm3 (150-450); RBC Distribution Width CV 13.1 % (11.6-14.6); RBC Distribution Width SD 45.4 fl (35.1-43.9)
[2024-05-28 15:55] LABS: Protein, Urine (Random) 16.7 mg/dL (<11.9); Protein:Creat Ratio 114 mg/g CRE (0-200)
[2024-05-28] MEDS: Betamethasone/Betamethasone 30 MG/5 ML Vial 12 MG IM (17:16)
--- NOTE | 2024-05-28 19:56 | OB.TRI.HP_ITS ---
HPI - General General Date of Service: 05/28/24 HPI Narrative KWADWO RODRIGUES, is a 24 F @ 34 weeks who presents c/o headache, dizziness and vision spots. pt has Gest HTN and reports elevated BP at home. pt reports no RUQ or epigastric pain. No increased swelling. pt reports she states she has been getting intermittent headaches and diziness for past few weeks- she is just unsure of when she needs to come in to be evaluated. pt reports no vaginal bleeding, no leaking fluid, no cramping, no pain. pt reports good FM although slightly less than normal today. Maternal Data Information ADRIANO Calculator Estimated Delivery Date Method Current WG Current Estimate 07/06/24 Manual 34w 3d PFSH PFSH Medical History Asthma Asthma H pylori ulcer Hives Migraine Pneumonia UTI (urinary tract infection) Home Medications ?Medication ?Instructions ?Recorded ?Last Taken ?Type vit no.95-ferrous 1 tab PO DAILY 04/27/24 05/16/24 22:00 History fumarate 28 mg-folic acid 800 mcg tablet () Allergy/AdvReac Type Severity Reaction Status Date / Time shellfish derived Allergy Severe Hives Verified 05/17/24 17:21 levetiracetam (From Keppra) AdvReac Severe Hives Verified 05/17/24 17:21 sumatriptan (From Imitrex) AdvReac Unknown Other Verified 05/17/24 17:21 Family History Sister Asthma Grandfather Cancer lung Grandmother Diabetes Parkinson disease Alzheimer disease Aunt Diabetes Uncle Diabetes Mother Hypertension Thyroid disorder Father Hypertension Grandfather Kidney disease Surgical History H/O knee surgery [place] teeth extracted Social History household members: spouse current occupational status: employed 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 no pain in RUQ or epigastric area on palpation. Ext: no swelling. No clonus. +2 reflexes Const alert and oriented x3 General Appearance: cooperative HEENT normocephalic GI GI Narrative: Gravid, non tender to palpation. OB / External & Speculum: external exam normal Extremity normal to inspection Skin no rashes or lesions noted Neuro oriented x3 and CN's II-XII intact bilaterally Psych Appearance: grossly normal NST FHR Rate Baby A Baseline: 130 Variability:: Moderate Accelerations:: 15 x 15 Decelerations:: None NST Reactive:: Yes FHR Category:: Category I Uterine Activity:: no ctx Assessment & Plan (1) 34 weeks gestation of : (2) Headache: QUALIFIERS: Headache type: unspecified Headache chronicity pattern: unspecified pattern Intractability: not intractable Qualified Code(s): R51.9 - Headache, unspecified (3) Gestational hypertension: QUALIFIERS: Trimester: third trimester Qualified Code(s): O13.3 - Gestational [-induced] hypertension without significant proteinuria, third trimester PLAN: Plan @ 34 weeks with Gest HTN, Headache today with dizziness 1) serial BPs- only one elevated at 144 /85 all others WNL 2) PRE E labs normal 3) discussed headaches and relief measures- reports she just started taking magnesium. advised on tylenol, warm soaks, magnesium. offered reglan declined. 4) discussed celestone and rationale incase of delivery- pt agreed. pt will come back tomorrow for BP check and #2 celestone Injection 5) when to return to L&D reviewed with patient- patient and Sig other were comfortable leaving with instructions.
== END 2024-05-28 17:15 | disposition home or self-care (01) ==
LOC: WPOUT 14:48 → WP 14:49
PROVIDERS: PCP Internal Medicine; Referring Provider Obstetrics & Gynecology; Visit Provider Obstetrics & Gynecology
DX: O99.891 Other specified diseases and conditions complicating pregnancy (principal); Z3A.34 34 weeks gestation of pregnancy; R51.9 Headache, unspecified; R42 Dizziness and giddiness; O13.3 Gestational [pregnancy-induced] hypertension without significant proteinuria, third trimester; J45.909 Unspecified asthma, uncomplicated; O99.513 Diseases of the respiratory system complicating pregnancy, third trimester
CPT/HCPCS: 36415; 59025; 59050; 82565; 82570; 84156; 84450; 84460; 84550; 85027; 96372; 99221; G0378; J0702

== ENCOUNTER 2024-05-29 16:13 | Outpatient (CLI) | payer OTHER, SELFPAY ==
[2024-05-29] VITALS (31 sets, daily range): BP systolic 122–140; BP diastolic 60–90; PULSE 88–126; RESP 16–18; TEMP 37.3; O2SAT 79–100; BMI 32.1
[2024-05-29 17:06] LABS: Hematocrit 28.9 % (37-47); Hemoglobin 9.8 g/dL (12.0-15.0); Mean Corp Hgb Conc 33.9 g/dL (32-36); Mean Corpuscular Hgb 32.8 pg (27.0-32.0); Mean Corpuscular Volume 96.7 fL (81-99); Mean Platelet Vol. 11.7 fl (6.2-12.0); Platelet Count 189 K/mm3 (150-450); RBC Distribution Width CV 13.1 % (11.6-14.6); RBC Distribution Width SD 45.2 fl (35.1-43.9); Red Blood Count 2.99 M/mm3 (4.2-5.4); White Blood Count 18.6 K/mm3 (4.4-11.0)
[2024-05-29] MEDS: Betamethasone/Betamethasone 30 MG/5 ML Vial 12 MG IM (17:14)
[2024-05-29 17:31] LABS: AST(SGOT) 12 U/L (15-37); Alanine Aminotransfer ALT/SGPT 15 U/L (13-56); Creatinine, Serum 0.65 mg/dL (0.55-1.02); EST Glomerular Filtration Rate 117 mL/min (>60); Est Glom Filt Rate - Afr Amer 141 mL/min (>60); Protein, Urine (Random) 31.2 mg/dL (<11.9); Protein:Creat Ratio 155 mg/g CRE (0-200)
[2024-05-29] MEDS: LACTATED RINGERS 1,000 ML 999 ML IV (18:22)
[2024-05-29] MEDS: Ondansetron 4 MG/2 ML Vial IV (18:41)
[2024-05-29 19:05] LABS: Bacteria 0 SEEN /hpf (None Seen); Red Blood Cells-Urine 0 SEEN /hpf (0-5)
[2024-05-29 19:07] LABS: Color, Urine Yellow (Yellow); Glucose, Dipstick Normal (Normal); Ketone-Dipstick 50 mg/dl (Negative); Leukocyte Esterase-Dipstick 25 /ul (Negative); Nitrite-Dipstick Negative (Negative); Occult Blood-Urine Negative /ul (Negative); Protein-Dipstick 15 mg/dl (Negative); Specific Gravity, Urine 1.025 (1.002-1.030); Urine Bilirubin Dipstick Negative (Negative); Urine Clarity Sl. Cloudy (Clear); Urine Urobilinogen Normal (Normal)
--- NOTE | 2024-05-29 19:29 | OB.TRI.NOTE ---
HPI - General HPI Narrative KWADWO RODRIGUES, is a 24 F who presents for second dose of Celestone 12 mg IM. Patient reporting continued headache with spotty vision, nausea and overall malaise. She is also reporting decreased movement. She was seen yesterday in L&D at which time Pre-e was ruled out. Labs were normal and patient was discharged home. Maternal Data Information ADRIANO Calculator Estimated Delivery Date Method Current WG Current Estimate 07/06/24 Manual 34w 4d PFSH PFSH Medical History Asthma Asthma H pylori ulcer Hives Migraine Pneumonia UTI (urinary tract infection) Home Medications ?Medication ?Instructions ?Recorded ?Last Taken ?Type vit no.95-ferrous 1 tab PO DAILY 04/27/24 05/28/24 History fumarate 28 mg-folic acid 800 mcg tablet () aspirin 81 mg tablet,delayed 81 mg PO DAILY 05/29/24 Unknown History release Allergy/AdvReac Type Severity Reaction Status Date / Time shellfish derived Allergy Severe Hives Verified 05/29/24 17:21 levetiracetam (From Keppra) AdvReac Severe Hives Verified 05/29/24 17:21 sumatriptan (From Imitrex) AdvReac Unknown Other Verified 05/29/24 17:21 Family History Sister Asthma Grandfather Cancer lung Grandmother Diabetes Parkinson disease Alzheimer disease Aunt Diabetes Uncle Diabetes Mother Hypertension Thyroid disorder Father Hypertension Grandfather Kidney disease Surgical History H/O knee surgery [place] teeth extracted Social History household members: spouse current occupational status: employed 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[employer] Smoking Status: Never smoker Electronic Cigarette Use: not used second hand exposure: No alcohol intake: current alcohol intake frequency: a few times a month substance use type: does not use what type of physical activity do you participate in: walking frequency: 3-4 times per week do you feel safe at home: Yes Physical Exam Const alert and no apparent distress General Appearance: cooperative Orientation / Consciousness: awake Exam Limitations: no limitations HEENT normocephalic Eyes General Eye: normal appearance of both eyes Neck full ROM Chest inspection of chest normal Resp normal respiratory effort and normal air movement Effort and Inspection: symmetric chest movement Auscultation: clear to auscultation bilaterally Cardio regular rate GI soft to palpation, non-tender and non-distended Inspection: and other Back/Spine normal ROM Extremity full ROM, normal capillary refill and no calf tenderness Skin no rashes or lesions noted Neuro oriented x3 and CN's II-XII intact bilaterally Psych mental status grossly normal NST FHR Rate Baby A Baseline: 130 Variability:: Moderate Accelerations:: 15 x 15 Decelerations:: None NST Reactive:: Yes FHR Category:: Category I Uterine Activity:: None Assessment & Plan (1) Gestational hypertension: QUALIFIERS: Trimester: third trimester Qualified Code(s): O13.3 - Gestational [-induced] hypertension without significant proteinuria, third trimester (2) 34 weeks gestation of : (3) Headache: QUALIFIERS: Headache type: unspecified Headache chronicity pattern: unspecified pattern Intractability: not intractable Qualified Code(s): R51.9 - Headache, unspecified (4) Elevated blood pressure affecting in third trimester, antepartum: PLAN: Plan Blood pressure today- normal range PIH labs - within normal limits Start IV and give 1000 cc bolus UA- ketones, protein, leuk- culture sent- patient dehydrated Zofran 4 mg IV x1 now for nausea Benadryl 50 mg PO x 1 dose Tylenol 1000 mg PO x 1 dose D/C home with follow up in office this week
[2024-05-29 19:34] LABS: Calcium Oxalate Crystals Ur 1+ /hpf (<or=2+); Mucous, Urine 1+ /hpf (<or=2+); Squamous Epithelial Cells - UA 10-25 SEEN /hpf (5-10)
[2024-05-29 19:35] LABS: White Blood Cells 0-5 SEEN /hpf (0-5)
== END 2024-05-29 20:10 | disposition home or self-care (01) ==
LOC: WPOUT 16:13 → WP 16:14
PROVIDERS: Obstetrics & Gynecology; PCP Internal Medicine; Referring Provider Advanced Practice Midwife; Visit Provider Advanced Practice Midwife
DX: O13.3 Gestational [pregnancy-induced] hypertension without significant proteinuria, third trimester (principal); Z79.82 Long term (current) use of aspirin; Z3A.34 34 weeks gestation of pregnancy; Z87.440 Personal history of urinary (tract) infections
CPT/HCPCS: 96374; 96361; 36415; 59025; 59050; 81001; 82565; 82570; 84156; 84450; 84460; 84550; 85027; 87086; 87088; 96372; 99221; J7120; G0378; J0702; J2405

== ENCOUNTER 2024-06-16 19:15 | Inpatient (IN) | payer OTHER, SELFPAY ==
[2024-06-16 19:19] VITALS: BMI 32.6
[2024-06-16 19:28] VITALS: PULSE 96; O2SAT 100
[2024-06-16 19:29] VITALS: BP 135/89; PULSE 96; TEMP 36.5
[2024-06-16] MEDS: Lactated Ringers 1,000 ML 50 ML IV (19:48)
[2024-06-16 20:20] LABS: Absolute Lymphocyte Count 1.85 X10^3/uL (0.83-4.51); Absolute Neutrophil Count 8.5 X10^3/uL (2.0-7.7); Basophil# 0.02 X10^3/uL; Basophil% 0.2 % (0-1); Eosinophil# 0.06 X10^3/uL; Eosinophils% 0.5 % (0-5); Hematocrit 32.8 % (37-47); Hemoglobin 11.2 g/dL (12.0-15.0); Lymphocyte # 1.85 X10^3/ul (0.83-4.51); Lymphocyte % 16.4 % (19-41); Mean Corp Hgb Conc 34.1 g/dL (32-36); Mean Corpuscular Hgb 32.8 pg (27.0-32.0); Mean Corpuscular Volume 96.2 fL (81-99); Mean Platelet Vol. 11.9 fl (6.2-12.0); Monocyte# 0.83 X10^3/uL; Monocyte% 7.3 % (0-10); NRBC Flagged by Analyzer 0 % (0-5); Neutrophil # 8.47 X10^3/uL (2.7-7.7); Neutrophil % 74.9 % (47-70); Platelet Count 177 K/mm3 (150-450); RBC Distribution Width CV 13.1 % (11.6-14.6); RBC Distribution Width SD 45.3 fl (35.1-43.9); Red Blood Count 3.41 M/mm3 (4.2-5.4); White Blood Count 11.3 K/mm3 (4.4-11.0)
[2024-06-16 20:33] LABS: AST(SGOT) 19 U/L (15-37); Alanine Aminotransfer ALT/SGPT 17 U/L (13-56); Creatinine, Serum 0.64 mg/dL (0.55-1.02); EST Glomerular Filtration Rate 119 mL/min (>60); Est Glom Filt Rate - Afr Amer 144 mL/min (>60); Estimated Creatinine Clearance 132.51 ml/min; Uric Acid 4.3 mg/dL (2.6-6.0)
[2024-06-16] MEDS: miSOPROStol 25 MCG TABLET PO (20:38)
[2024-06-16 20:52] LABS: Syphilis Antibodies Non-reactive
--- NOTE | 2024-06-16 21:07 | PCM.HP.OB ---
HPI - General General Date of Admission: 06/16/24 HPI Narrative KWADWO RODRIGUES, is a 24 F who presents at 37w1d for induction of labor due to GHTN Maternal Data Information ADRIANO Calculator Estimated Delivery Date Method Current WG Current Estimate 07/06/24 Manual 37w 1d PFSH PFS Medical History (Updated 06/16/24 @ 21:25 by Aminah Sanchez CNM) Muscle tremor Headache Gestational HTN Asthma Migraine H pylori ulcer Pneumonia Hives UTI (urinary tract infection) Asthma Home Medications ?Medication ?Instructions ?Recorded ?Last Taken ?Type vit no.95-ferrous 1 tab PO DAILY 04/27/24 06/15/24 History fumarate 28 mg-folic acid 800 mcg tablet () aspirin 81 mg tablet,delayed 81 mg PO DAILY high blood pressure 05/29/24 06/15/24 History release ferrous sulfate 325 mg (65 mg 325 mg PO .COMPLEX anemia 06/16/24 06/14/24 History iron) tablet (Iron (ferrous sulfate)) magnesium 250 mg tablet 500 mg PO QHS headaches 06/16/24 06/15/24 History Allergy/AdvReac Type Severity Reaction Status Date / Time shellfish derived Allergy Severe Hives Verified 06/16/24 19:28 levetiracetam (From Keppra) AdvReac Severe Hives Verified 06/16/24 19:28 sumatriptan (From Imitrex) AdvReac Unknown Other Verified 06/16/24 19:28 Family History Sister Asthma Grandfather Cancer lung Grandmother Diabetes Parkinson disease Alzheimer disease Aunt Diabetes Uncle Diabetes Mother Hypertension Thyroid disorder Father Hypertension Grandfather Kidney disease Surgical History (Updated 06/16/24 @ 20:28 by Virginia Cordon) History of surgery [place] teeth extracted H/O knee surgery Social History household members: spouse current occupational status: employed 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[employer] Smoking Status: Never smoker Electronic Cigarette Use: not used second hand exposure: No alcohol intake: current alcohol intake frequency: a few times a month substance use type: does not use what type of physical activity do you participate in: walking frequency: 3-4 times per week do you feel safe at home: Yes History Elective abortions Hx Para 0 Spontaneous abortions Hx # Term Pregnancies Ectopic pregnancies Hx # Pregnancies Multiple births # of living children NST FHR Rate Baby A Baseline: 145 Variability:: Moderate Accelerations:: 15 x 15 Decelerations:: Variable FHR Category:: Category II Uterine Activity:: None ROS Constitutional Constitutional: Reports systems reviewed and no addt'l complaints, except as documented; Denies headache(s) Eyes Eyes: Denies acute decrease in peripheral vision, blurry vision or change in vision ENT HEENT: Reports systems reviewed and no addt'l complaints, except as documented Cardiovascular Cardiovascular: Denies chest pain or dizziness Respiratory/Chest Respiratory/Chest: Denies cough, dyspnea, dyspnea on exertion, shortness of breath at rest or shortness of breath with exertion Gastrointestinal Gastrointestinal: Denies abdominal pain, diarrhea, nausea or vomiting Genitourinary Genitourinary: Denies abdominal discomfort Musculoskeletal Musculoskeletal: Denies limited range of motion Integumentary Integumentary: Reports systems reviewed and no addt'l complaints, except as documented Neurologic Neurologic: Reports systems reviewed and no addt'l complaints, except as documented Psychiatric Psychiatric: Reports systems reviewed and no addt'l complaints, except as documented Endocrine Endocrinology: Reports systems reviewed and no addt'l complaints, except as documented Hematologic/Lymphatic Hematologic/Lymphatic: Reports systems reviewed and no addt'l complaints, except as documented Allergic/Immunologic Allergic/Immunologic: Reports systems reviewed and no addt'l complaints, except as documented Vital Signs Vital Signs Vital Signs: 06/16/24 19:28 06/16/24 19:28 06/16/24 19:29 Temperature Pulse Rate 96 Blood Pressure 135/89 H BP Systolic 135 BP Diastolic 89 Pulse Ox 100 06/16/24 19:29 06/16/24 19:29 Temperature 97.7 F L Pulse Rate 96 Blood Pressure BP Systolic BP Diastolic Pulse Ox Weight Weight: 178 lb 9.6 oz Body Mass Index (BMI) 32.6 Physical Exam Const alert and oriented x3 General Appearance: cooperative Orientation / Consciousness: awake, oriented to person, oriented to place and oriented to time Exam Limitations: no limitations HEENT normocephalic Head and Scalp: normal to inspection, normocephalic and atraumatic Face and Sinus: normal facial exam Eyes General Eye: normal appearance of both eyes Neck full ROM Chest Chest: symmetrical chest wall rise Resp normal respiratory effort and normal air movement Auscultation: clear to auscultation bilaterally Cardio regular rate, regular rhythm, S1 normal heart sound, S2 normal heart sound, no murmurs, no rub, no gallops and no clicks GI normal to inspection, nondistended, normoactive bowel sounds and non-tender appearance of the vagina normal Bladder / Kidney Exam: no CVA tenderness Manual OB Exam: estimated gestational size appropriate, presentation cephalic, dilated 1cm, effaced 50%, station -2 and other [place] inserted through cervix, 30ml NS instilled into balloon Back/Spine normal ROM Extremity normal to inspection and full ROM Skin no rashes or lesions noted Neuro oriented x3, CN's II-XII intact bilaterally and moves all extremities Sensorium / Orientation: awake, alert and oriented to person Motor Exam: clonus absent Deep Tendon Reflexes: Rt Patellar (L4): 2+ and Lt Patellar (L4): 2+ Labs Labs Labs: Blood Type O NEGATIVE Antibody Screen Pending Hct 32.8 % (37-47) L Hgb 11.2 g/dL (12.0-15.0) L Obstetrics Ultrasound Syphilis Total Ab Non-reactive HIV negative RPR negative O negative Rubella immune Hep C negative HBsAG negative GBS negative 1hr GCT normal Assessment & Plan (1) 37 weeks gestation of : (2) Gestational hypertension: QUALIFIERS: Trimester: third trimester Qualified Code(s): O13.3 - Gestational [-induced] hypertension without significant proteinuria, third trimester (3) Encounter for induction of labor: PLAN: Plan 1) Admit to labor and delivery 2) Routine labs 3) Preeclampsia labs, BP stable 4) Cytotec with perales for induction, start pitocin after perales out 5) GBS negative 6) Pain management upon request 7) [facility] physician, notified of above assessment, plan, and status
[2024-06-16] MEDS: 0.9% Normal Saline Single 100 ML IV.SOLN. INTRA-UTER (21:17)
[2024-06-16 22:00] VITALS: BP 142/77; PULSE 79; RESP 17; TEMP 35.9; TEMP 36.5; O2SAT 98
[2024-06-16 22:38] LABS: Protein, Urine (Random) 26.2 mg/dL (<11.9); Protein:Creat Ratio 177 mg/g CRE (0-200)
[2024-06-16 23:21] VITALS: BP 115/69; PULSE 75; RESP 19; O2SAT 100
[2024-06-16 23:23] VITALS: TEMP 36.4
[2024-06-17] VITALS (45 sets, daily range): BP systolic 99–142; BP diastolic 6–86; PULSE 57–96; RESP 14–19; TEMP 36.1–37.1; O2SAT 98–100
[2024-06-17] MEDS: Oxytocin 15 Units/NS 250ml 15 UNITS/250 ML IV.SOLN 2 UNITS IV (01:20)
--- NOTE | 2024-06-17 07:41 | PCM.PN.BLA ---
Progress Note At bedside with RN. Pt comfortable but feeling some cramping. Assessment & Plan Assessment/Plan (1) Encounter for induction of labor: PLAN: Cvx 3/t/-2, head well applied. AROM performed in usual fashion with return of clear fluid. Cont current management. (2) 37 weeks gestation of : (3) Gestational hypertension: QUALIFIERS: Trimester: third trimester Qualified Code(s): O13.3 - Gestational [-induced] hypertension without significant proteinuria, third trimester
[2024-06-17] MEDS: Lactated Ringers 1,000 ML 999 ML IV (08:31)
[2024-06-17] MEDS: Ondansetron 4 MG/2 ML Vial IV (08:33)
[2024-06-17] MEDS: fentaNYL-bupivacaine (epidural) 100 ML BAG EPIDURAL ×3 (09:33→22:12)
[2024-06-17] MEDS: Lactated Ringers 1,000 ML 200 ML IV ×3 (11:11→21:10)
[2024-06-17] MEDS: DiphenhydrAMINE 25 MG Capsule PO (16:07)
--- NOTE | 2024-06-17 17:57 | PCM.PN.OB ---
Subjective Subjective at bedside to check on pt. she is resting comfortably with an epidural. Objective Data Objective Data Vital Signs: Vital Signs Temp Pulse Resp BP Pulse Ox 97.9 F 70 15 112/56 L 98 06/17/24 17:01 06/17/24 17:01 06/17/24 17:01 06/17/24 17:01 06/17/24 15:02 Weight: 178 lb 9.6 oz Body Mass Index (BMI) 32.6 Intake & Output: Intake and Output for Last 24 Hours 06/15/24 06/16/24 06/17/24 23:59 23:59 23:59 Intake Total 2881.26 / 2881.26 Output Total 950 / 950 Balance 1931.26 / 1931.26 Lab / Micro Data 06/16/24 19:45 06/16/24 19:45 Labs: Laboratory Results - last 24 hr 06/16/24 19:45: WBC 11.3 H, RBC 3.41 L, Hgb 11.2 L, Hct 32.8 L, MCV 96.2, MCH 32.8 H, MCHC 34.1, RDW Std Deviation 45.3 H, RDW Coeff of Omar 13.1, Plt Count 177, MPV 11.9, Immature Gran % (Auto) 0.700, Neut % (Auto) 74.9 H, Lymph % (Auto) 16.4 L, [place] % (Auto) 7.3, Eos % (Auto) 0.5, Baso % (Auto) 0.2, Absolute Neuts (auto) 8.5 H, Absolute Lymphs (auto) 1.85, Nucleated RBC % 0, Creatinine 0.64, Estim Creat Clear Calc 132.51, Est GFR (MDRD) Af Amer 144, Est GFR (MDRD) Non-Af 119, Uric Acid 4.3, AST 19, ALT 17, Syphilis Total Ab Non-reactive, Blood Type O NEGATIVE, Antibody Screen NEGATIVE 06/16/24 21:40: U Random Total Protein 26.2 H, Urine Creatinine 148.00, Protein/Creatinin Ratio 177 Assessment & Plan (1) Encounter for induction of labor: PLAN: Category 1 tracing at this time. Contractions are inadequate. Continue to increase Pitocin. IUPC in place. (2) 37 weeks gestation of : (3) Gestational hypertension: QUALIFIERS: Trimester: third trimester Qualified Code(s): O13.3 - Gestational [-induced] hypertension without significant proteinuria, third trimester
[2024-06-17] MEDS: Oxytocin 15 Units/NS 250ml 15 UNITS/250 ML IV.SOLN 22 UNITS IV (20:24)
--- NOTE | 2024-06-17 20:33 | PCM.PN.OB ---
Subjective Subjective pt feeling pressure and otherwise comfortable with epidural. Objective Data Objective Data Vital Signs: Vital Signs Temp Pulse Resp BP Pulse Ox 97.9 F 86 16 115/80 100 06/17/24 20:23 06/17/24 20:24 06/17/24 18:20 06/17/24 20:24 06/17/24 20:24 Weight: 178 lb 9.6 oz Body Mass Index (BMI) 32.6 Intake & Output: Intake and Output for Last 24 Hours 06/15/24 06/16/24 06/17/24 23:59 23:59 23:59 Intake Total 3759.17 / 3759.17 Output Total 950 / 950 Balance 2809.17 / 2809.17 Lab / Micro Data 06/16/24 19:45 06/16/24 19:45 Labs: Laboratory Results - last 24 hr 06/16/24 19:45: Creatinine 0.64, Estim Creat Clear Calc 132.51, Est GFR (MDRD) Af Amer 144, Est GFR (MDRD) Non-Af 119, Uric Acid 4.3, AST 19, ALT 17, Syphilis Total Ab Non-reactive, Blood Type O NEGATIVE, Antibody Screen NEGATIVE 06/16/24 21:40: U Random Total Protein 26.2 H, Urine Creatinine 148.00, Protein/Creatinin Ratio 177 Assessment & Plan (1) Encounter for induction of labor: PLAN: Cvx 9.5/100/0 station. Continue current management. (2) 37 weeks gestation of : (3) Gestational hypertension: QUALIFIERS: Trimester: third trimester Qualified Code(s): O13.3 - Gestational [-induced] hypertension without significant proteinuria, third trimester
[2024-06-18] VITALS (39 sets, daily range): BP systolic 118–137; BP diastolic 58–94; PULSE 67–180; RESP 14–16; TEMP 36.3–37.1; O2SAT 81–100
--- NOTE | 2024-06-18 00:06 | PCM.OPRPT ---
Problems Associated Problem List Diagnoses (1) Encounter for induction of labor: (2) 37 weeks gestation of : (3) Gestational hypertension: Report of Operation Date of Procedure: 06/18/24 Pre-Operative Diagnosis: 37 week gestation, gHTN, IOL Post-Operative Diagnosis: As above Surgery/Procedure Performed:: Repair of first degree vaginal laceration Description of Surgical Findings:: VMI in OP position with loose nuchal cord x 2. Apgars 8, 9. Normal appearing placenta with 3 VC Surgeon: Tari Brown business applications specialist: None Type of Anesthesia: Epidural Special Medications: None Specimen's removed: Placenta Drains: [place] Estimated Blood Loss (mL): 100 Fluids Replaced: N/A Description of Procedure: Patient complete and pushing. Head of infant delivered in OP position. Loose nuchal cord x 2 was reduced. The shoulders and body of the infant delivered spontaneously without any traction, force or delay. A vigorous VMI was placed on maternal abdomen. Cord was clamped and cut after 60 second delay by FOB. Placenta delivered with fundal massage and was noted to be normal appearing and intact with 3VC. Uterus explored x 1. A first degree vaginal laceration was repaired with 3-0 Vicryl in usual fashion. Fundus firm and bleeding minimal. Vaginal sweep performed. Sharp and sponge counts correct. Grafts/Implants Used: None Complications None Admit VTE Documentation VTE Present on Admission: No
[2024-06-18] MEDS: Oxytocin 15 Units/NS 250ml 15 UNITS/250 ML IV.SOLN 83 UNITS IV (00:30)
[2024-06-18] MEDS: Ibuprofen 600 MG Tablet PO ×3 (04:57→18:28)
[2024-06-18] MEDS: Acetaminophen 500 MG Tablet 1000 MG PO ×2 (04:58→15:23)
--- NOTE | 2024-06-18 07:45 | PCM.PN.OB ---
Subjective Subjective Doing well per patient and nursing staff. Ambulating and taking PO without difficulty. Voiding and passing flatus. Pain controlled. , services for assistance. Denies headache, visual changes, chest pain, shortness of breath, leg pain or increased bleeding. Lochia normal. Objective Data Objective Data Vital Signs: Vital Signs Temp Pulse Resp BP Pulse Ox O2 Del Method 97.5 F L 83 14 128/94 H 97 Room Air 06/18/24 04:51 06/18/24 04:51 06/18/24 04:51 06/18/24 04:51 06/18/24 04:51 06/18/24 04:51 Oxygen Delivery Method Room Air Weight: 178 lb 9.6 oz Body Mass Index (BMI) 32.6 Intake & Output: Intake and Output for Last 24 Hours 06/16/24 06/17/24 06/18/24 23:59 23:59 23:59 Intake Total 5351.74 / 5351.74 424.1 / 424.1 Output Total 1450 / 1450 Balance 3901.74 / 3901.74 424.1 / 424.1 Lab / Micro Data 06/16/24 19:45 06/16/24 19:45 Labs: Laboratory Results - last 24 hr 06/18/24 01:40: Screen NEGATIVE, Baby's Blood Type O POSITIVE, Baby's ANNMARIE NEGATIVE ROS Constitutional Constitutional: Reports systems reviewed and no addt'l complaints, except as documented; Denies headache(s) Eyes Eyes: Denies acute decrease in peripheral vision, blurry vision or change in vision ENT HEENT: Reports systems reviewed and no addt'l complaints, except as documented Cardiovascular Cardiovascular: Denies chest pain or dizziness Respiratory/Chest Respiratory/Chest: Denies cough, dyspnea, dyspnea on exertion, shortness of breath at rest or shortness of breath with exertion Gastrointestinal Gastrointestinal: Denies abdominal pain, diarrhea, nausea or vomiting Genitourinary Genitourinary: Denies abdominal discomfort Musculoskeletal Musculoskeletal: Denies limited range of motion Integumentary Integumentary: Reports systems reviewed and no addt'l complaints, except as documented Neurologic Neurologic: Reports systems reviewed and no addt'l complaints, except as documented Psychiatric Psychiatric: Reports systems reviewed and no addt'l complaints, except as documented Endocrine Endocrinology: Reports systems reviewed and no addt'l complaints, except as documented Hematologic/Lymphatic Hematologic/Lymphatic: Reports systems reviewed and no addt'l complaints, except as documented Allergic/Immunologic Allergic/Immunologic: Reports systems reviewed and no addt'l complaints, except as documented Physical Exam Const alert and oriented x3 General Appearance: cooperative Orientation / Consciousness: awake, oriented to person, oriented to place and oriented to time Exam Limitations: no limitations HEENT normocephalic Head and Scalp: normal to inspection, normocephalic and atraumatic Face and Sinus: normal facial exam Eyes General Eye: normal appearance of both eyes Neck full ROM Chest Chest: symmetrical chest wall rise Resp normal respiratory effort and normal air movement Auscultation: clear to auscultation bilaterally Cardio regular rate, regular rhythm, S1 normal heart sound, S2 normal heart sound, no murmurs, no rub, no gallops and no clicks GI normal to inspection, nondistended, normoactive bowel sounds and non-tender appearance of the vagina normal Bladder / Kidney Exam: no CVA tenderness Back/Spine normal ROM Extremity normal to inspection and full ROM Skin no rashes or lesions noted Neuro oriented x3, CN's II-XII intact bilaterally and moves all extremities Sensorium / Orientation: awake, alert and oriented to person Motor Exam: clonus absent Deep Tendon Reflexes: Rt Patellar (L4): 2+ and Lt Patellar (L4): 2+ Assessment & Plan (1) Vaginal delivery: (2) First degree perineal laceration: (3) Gestational hypertension: QUALIFIERS: Trimester: third trimester Qualified Code(s): O13.3 - Gestational [-induced] hypertension without significant proteinuria, third trimester PLAN: Plan 1) Routine PP care 2) GHTN, BP stable, no medications at this time 3) Pain management 4) I&O 5) Recommend 72hr stay with TN
[2024-06-18] MEDS: 0.9% Saline Lock 10 ML Syringe IV (08:27)
[2024-06-18] MEDS: Rho(D) Immune Globulin 300 MCG (1500 Unit) Syringe IV (08:28)
[2024-06-18] MEDS: Senna/Docusate Sodium 1 Tablet PO (15:32)
[2024-06-19 02:50] VITALS: BP 134/86; PULSE 74; RESP 16; TEMP 36.6; O2SAT 99
[2024-06-19] MEDS: Ibuprofen 600 MG Tablet PO ×2 (03:03→08:54)
--- NOTE | 2024-06-19 08:17 | PCM.PROGNOTE ---
Subjective Subjective patient seen at bedside, doing well. Patient reports good pain control. lochia mild. Objective Data Objective Data Vital Signs: Vital Signs Temp Pulse Resp BP Pulse Ox O2 Del Method 97.8 F 74 16 134/86 H 99 Room Air 06/19/24 02:50 06/19/24 02:50 06/19/24 02:50 06/19/24 02:50 06/19/24 02:50 06/19/24 02:50 Oxygen Delivery Method Room Air Weight: 81.012 kg Body Mass Index (BMI) 32.6 Intake & Output: Intake and Output for Last 24 Hours 06/17/24 06/18/24 06/19/24 23:59 23:59 23:59 Intake Total 5351.74 / 5351.74 424.1 / 424.1 Output Total 1450 / 1450 350 / 350 Balance 3901.74 / 3901.74 74.1 / 74.1 Lab / Micro Data 06/16/24 19:45 06/16/24 19:45 Physical Exam Const alert and oriented x3 General Appearance: cooperative HEENT normocephalic Neck General: normal visual inspection GI soft to palpation and non-distended GI Narrative: Fundus firm Extremity normal to inspection and no calf tenderness Skin no rashes or lesions noted Neuro oriented x3 and CN's II-XII intact bilaterally Psych mental status grossly normal Assessment & Plan Assessment/Plan (1) First degree perineal laceration: (2) Vaginal delivery: (3) Gestational hypertension: QUALIFIERS: Trimester: third trimester Qualified Code(s): O13.3 - Gestational [-induced] hypertension without significant proteinuria, third trimester PLAN: Plan PPD#2 , Doing well Routine care pain mgmt ambulation BPs reviewed- will follow up in office 48-72 hrs
--- NOTE | 2024-06-19 08:18 | DCINST_ITS ---
Discharge Instructions Diet Discharge Diet: No restrictions Activity May resume sexual activity in: 6-8 weeks Dressing / Incision Call your doctor if you observe: Fever of 101 or Higher, Inability to urinate, Using more than 1 pad per hour and Uncontrolled pain Follow Up Care Please Follow Up With: Nicole Buck MD When: 1-2 weeks post and again at 6 weeks post . [phone] Test Results: Test results from this visit will be discussed in further detail at your follow- up appointment, if applicable. Discharge Plan Admission Admit Date/Time: 06/16/24 19:15 Attending Provider: Tari Brown Primary Care Provider: Laurel Mcneal Discharge Orders/Prescriptions Prescriptions: New acetaminophen 500 mg Tablet 1,000 mg PO Q6H PRN PRN (Reason: Pain 1-10 Or Fever) Qty: 0 0RF ibuprofen 600 mg Tablet 600 mg PO Q6H PRN PRN (Reason: Pain Score 1-10) Qty: 0 0RF Discontinued aspirin 81 mg tablet,delayed release (DR/EC) 81 mg PO DAILY No Action PNV cmb#95-ferrous fumarate-FA [] 28 mg iron- 800 mcg tablet 1 tab PO DAILY magnesium 250 mg tablet 500 mg PO QHS ferrous sulfate [Iron (ferrous sulfate)] 325 mg (65 mg iron) tablet 325 mg PO .COMPLEX Rx Instructions: 325 mg orally takes M,W,F; Referrals / Follow Up: Laurel Mcneal MD [Primary Care Provider] - Disposition Disposition (needs filled in before D/C Order can be placed): Home, Self Care
[2024-06-19 09:01] VITALS: BP 118/79; PULSE 65; RESP 16; TEMP 36.5; O2SAT 100
[2024-06-19] MEDS: Acetaminophen 500 MG Tablet 1000 MG PO (11:16)
[2024-06-19 14:21] VITALS: BP 129/90; PULSE 70; RESP 16; TEMP 36.4; O2SAT 99
[2024-06-19] MEDS: Senna/Docusate Sodium 1 Tablet PO (14:36)
== END 2024-06-19 14:55 | disposition home or self-care (01) | DRG 807 ==
PROVIDERS: Advanced Practice Midwife; Obstetrics & Gynecology; Admitting Provider Obstetrics & Gynecology; PCP Internal Medicine; Visit Provider Obstetrics & Gynecology
DX: O13.4 Gestational [pregnancy-induced] hypertension without significant proteinuria, complicating childbirth (principal); Z37.0 Single live birth; O69.81X0 Labor and delivery complicated by cord around neck, without compression, not applicable or unspecified; O70.0 First degree perineal laceration during delivery; Z79.82 Long term (current) use of aspirin; Z3A.37 37 weeks gestation of pregnancy
CPT/HCPCS: 59025; 59050; 82565; 82570; 84156; 84450; 84460; 84550; 85025; 85461; 86780; 86850; 86900; 86901; 90384; 99221; J7120; A4216; G0378; J2405; J2790; J2791

== ENCOUNTER 2024-12-19 21:35 | Emergency (ER) | payer OTHER, SELFPAY ==
[2024-12-19 21:37] VITALS: BP 146/90; PULSE 78; RESP 16; TEMP 36.6; O2SAT 100; BMI 29.2
--- NOTE | 2024-12-19 22:20 | EDS_ITS ---
HPI HPI - GI History of Present Illness Chief Complaint: GI Bleed Informant: patient Abdominal Pain/Flank Pain Onset: Today Context: Gradual Onset Timing: Waxes and wanes Quality: Cramping Location: RLQ and LLQ Worsened by: Nothing Relieved by: Nothing Nausea/Vomiting/Emesis GI Symptom: Positive for Nausea; Negative for Vomiting Diarrhea/Melena/Hematochezia GI Symptom: Positive for Hematochezia Stool Quality: Positive for BRB per rectum (And clots) Narrative Narrative: Patient presents with rectal bleeding that became worse tonight. Patient states she had a baby 6 months ago. Patient states that she has been having some rectal bleeding on and off since that time. Patient states she was diagnosed with an anal fissure and internal hemorrhoids. Patient states she had a colonoscopy but states she needs to follow-up with a repeat colonoscopy because there was still a moderate amount of stool in her colon. Patient admits to some mild nausea. Patient states she started having some abdominal cramping over her lower abdomen tonight after a bowel movement. Patient states that her bowel movement was red blood with some clots. Patient denies any lightheadedness or dizziness. [facility] Medical History Muscle tremor Headache Gestational HTN Asthma Migraine H pylori ulcer Pneumonia Hives UTI (urinary tract infection) Asthma Home Medications ?Medication ?Instructions ?Recorded ?Last Taken ?Type vit no.95-ferrous 1 tab PO DAILY 06/15/24 History fumarate 28 mg-folic acid 800 mcg tablet () acetaminophen 500 mg tablet 1,000 mg (2 x 500 mg) PO Q 6H PRN 06/19/24 Unknown Rx PRN Pain 1-10 Or Fever #0 tabs ibuprofen 600 mg tablet 600 mg PO Q6H PRN PRN Pain S core 06/19/24 Unknown Rx 1-10 #0 tabs albuterol sulfate 90 mcg/actuation 1 puff inhalation B ID 12/19/24 Unknown History aerosol inhaler hydrocortisone acetate 25 mg 25 mg ND BID 12/19/24 Unk nown History rectal suppository Allergy/AdvReac Type Severity Reaction Status Date / Time shellfish derived Allergy Severe Hives Verified 12/19/24 21:39 levetiracetam (From [facility]) AdvReac Severe Hives Verified 12/19/24 21:39 sumatriptan (From Imitrex) AdvReac Unknown Other Verified 12/19/24 21:39 Family History Sister Asthma Grandfather Cancer lung Grandmother Diabetes Parkinson disease Alzheimer disease Aunt Diabetes Uncle Diabetes Mother Hypertension Thyroid disorder Father Hypertension Grandfather Kidney disease Surgical History History of surgery [place] teeth extracted H/O knee surgery Social History household members: spouse current occupational status: employed 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[employer] Smoking Status: Never smoker Electronic Cigarette Use: not used second hand exposure: No alcohol intake: current alcohol intake frequency: a few times a month substance use type: does not use what type of physical activity do you participate in: walking frequency: 3-4 times per week do you feel safe at home: Yes ROS ROS ED Constitutional Constitutional ED: Denies chills or fever(s) Eyes Eyes: Denies blurry vision or change in vision ENT ENT ED: Denies rhinorrhea or sore throat Cardiovascular Cardiovascular: Denies chest pain or palpitations Respiratory/Chest Respiratory/Chest: Denies cough or dyspnea Gastrointestinal Gastrointestinal: Reports abdominal pain and nausea; Denies vomiting Genitourinary Genitourinary ED: Denies dysuria or hematuria Musculoskeletal Musculoskeletal: Denies back pain or neck pain Integumentary Denies abscess or rash Neurologic Neurologic: Denies headache(s) or weakness Allergic/Immunologic Allergic/Immunologic ED: Denies mouth swelling or urticaria EXAM Physical Exam Const Vital Signs: 12/19/24 21:37 12/19/24 23:34 12/19/24 23:36 Temperature 97.9 F Temperature Source Temporal Pulse Rate 78 76 Pulse Rate [Lying] 60 Pulse Rate [Sitting (for 1 minute prior to obtaining)] 65 Pulse Rate [Standing (for 1 minute prior to obtaining)] 76 Respiratory Rate 16 18 Blood Pressure 146/90 H 130/96 H Blood Pressure [Lying] 134/109 H Blood Pressure [Sitting (for 1 minute prior to obtaining)] 139/76 H Blood Pressure [Standing (for 1 minute prior to obtaining)] 130/96 H Blood Pressure Mean 108 107 Blood Pressure Mean [Lying] 117 Blood Pressure Mean [Sitting (for 1 minute prior to obtaining)] 97 Blood Pressure Mean [Standing (for 1 minute prior to obtaining)] 107 Pulse Ox 100 100 Oxygen Delivery Method Room Air Room Air Positive well nourished and well developed General Appearance ED: well developed and NAD HEENT Reports moist mucous membranes Neck supple and no JVD Resp normal respiratory effort and clear to auscultation bilaterally Cardio regular rate and regular rhythm GI non-distended GI Narrative: Rectal exam was performed. I did not see any active bleeding. There are no anal fissures noted. Palpation: soft and tender LLQ, RLQ and suprapubic; Negative for guarding or rebound tenderness present Neuro CN's II-XII intact bilaterally, moves all extremities and no sensory deficits noted Sensorium / Orientation: alert Motor Exam: strength 5/5 throughout Psych mental status grossly normal MDM MDM MDM Narrative Medical decision making narrative: Differential diagnosis includes bleeding hemorrhoid, anal fissure, lower gastrointestinal bleeding, anemia, and electrolyte abnormality. CBC will be obtained to assess for anemia and leukocytosis. Basic metabolic profile will be obtained to assess for electrolyte abnormality and renal function. Lab Data Attestation: I reviewed the patient's lab results. Lab results narrative: CBC was reviewed and was within normal limits. Hemoglobin is stable at 12.8. Basic metabolic profile was reviewed and was within normal limits. Labs: Laboratory Results - last 24 hr 12/19/24 22:32 WBC 6.4 RBC 4.06 L Hgb 12.8 Hct 36.8 L MCV 90.6 MCH 31.5 MCHC 34.8 RDW Std Deviation 38.8 RDW Coeff of Omar 11.7 Plt Count 228 MPV 11.4 Immature Gran % (Auto) 0.300 Neut % (Auto) 51.2 Lymph % (Auto) 37.7 [place] % (Auto) 9.2 Eos % (Auto) 1.3 Baso % (Auto) 0.3 Absolute Neuts (auto) 3.3 Absolute Lymphs (auto) 2.41 Nucleated RBC % 0 Sodium 140 Potassium 3.6 Chloride 109 H Carbon Dioxide 27.0 Anion Gap 4 L BUN 13 Creatinine 0.77 Estim Creat Clear Calc 104.19 Est GFR (MDRD) Af Amer 116 Est GFR (MDRD) Non-Af 96 BUN/Creatinine Ratio 16.8 Glucose 92 Calcium 9.5 Treatment and Re-Evaluation :: Orthostatic vital signs were obtained and were negative. Patient was advised of her findings. Patient was advised that this is most likely one of her internal hemorrhoids that started bleeding again. Patient was advised that these can bleed heavily and pass clots. Patient states she is currently on rectal suppositories for internal hemorrhoids but they are not helping. Patient was instructed to continue her medications as previously prescribed. Patient was instructed to follow-up with her primary care physician and truer pinion and wheel as scheduled. Patient understood and was agreeable with plan. All questions were answered. Discharge Plan Triage Chief Complaint: GI Bleed ED Provider: Jaycob Del Valle Dx/Rx/DC Orders Clinical Impression: Lower gastrointestinal bleeding, Bleeding internal hemorrhoids Instructions: ED Hemorrhoids, ED Lower GI Bleeding (Stable) Prescriptions: No Action hydrocortisone acetate 25 mg suppository 25 mg ND BID albuterol sulfate 90 mcg/actuation HFA aerosol inhaler 1 puff inhalation BID PNV cmb#95-ferrous fumarate-FA [] 28 mg iron- 800 mcg tablet 1 tab PO DAILY acetaminophen 500 mg Tablet 1,000 mg PO Q6H PRN PRN (Reason: Pain 1-10 Or Fever) Qty: 0 0RF ibuprofen 600 mg Tablet 600 mg PO Q6H PRN PRN (Reason: Pain Score 1-10) Qty: 0 0RF Primary Care Provider: Care Physician,Gwendolyn Primary Referrals: NOT,DEFINED [Non-Staff] - 5-7 Days Print Language: Bengali Disposition Disposition: Home, Self Care
[2024-12-19 22:39] LABS: Absolute Lymphocyte Count 2.41 X10^3/uL (0.83-4.51); Absolute Neutrophil Count 3.3 X10^3/uL (2.0-7.7); Basophil# 0.02 X10^3/uL; Basophil% 0.3 % (0-1); Eosinophil# 0.08 X10^3/uL; Eosinophils% 1.3 % (0-5); Hematocrit 36.8 % (37-47); Hemoglobin 12.8 g/dL (12.0-15.0); Lymphocyte # 2.41 X10^3/ul (0.83-4.51); Lymphocyte % 37.7 % (19-41); Mean Corp Hgb Conc 34.8 g/dL (32-36); Mean Corpuscular Hgb 31.5 pg (27.0-32.0); Mean Corpuscular Volume 90.6 fL (81-99); Mean Platelet Vol. 11.4 fl (6.2-12.0); Monocyte# 0.59 X10^3/uL; Monocyte% 9.2 % (0-10); NRBC Flagged by Analyzer 0 % (0-5); Neutrophil # 3.28 X10^3/uL (2.7-7.7); Neutrophil % 51.2 % (47-70); Platelet Count 228 K/mm3 (150-450); RBC Distribution Width CV 11.7 % (11.6-14.6); RBC Distribution Width SD 38.8 fl (35.1-43.9); Red Blood Count 4.06 M/mm3 (4.2-5.4); White Blood Count 6.4 K/mm3 (4.4-11.0)
[2024-12-19 22:53] LABS: Anion Gap 4 (5-15); BUN 13 mg/dL (7-18); BUN/Creat Ratio 16.8 RATIO (10-20); Calcium,Total 9.5 mg/dL (8.5-10.1); Chloride 109 mmol/L (98-107); Creatinine, Serum 0.77 mg/dL (0.55-1.02); EST Glomerular Filtration Rate 96 mL/min (>60); Est Glom Filt Rate - Afr Amer 116 mL/min (>60); Estimated Creatinine Clearance 104.19 ml/min; Glucose 92 mg/dL (74-106); Potassium 3.6 mmol/L (3.5-5.1); Sodium Level 140 mmol/L (136-145)
[2024-12-19 23:34] VITALS: BP 130/96; BP 134/109; BP 139/76; PULSE 60; PULSE 65; PULSE 76
[2024-12-19 23:36] VITALS: BP 130/96; PULSE 76; RESP 18; O2SAT 100
--- NOTE | 2024-12-19 23:57 | ED.RN ---
Pt expressed frustrations to RN about lack of orders from DR. RN requested rectal exam done per pt request. DR completed rectal exam and only saw hemorrhoid, no imaging or ifob ordered. RN encourage pt to fill out survery regarding DR care. Questions/concerns answered.
== END 2024-12-20 00:01 | disposition home or self-care (01) ==
PROVIDERS: Emergency Provider Emergency Medicine; Referring Provider Emergency Medicine; Visit Provider Emergency Medicine
DX: K64.8 Other hemorrhoids (principal); K92.2 Gastrointestinal hemorrhage, unspecified; R10.9 Unspecified abdominal pain; J45.909 Unspecified asthma, uncomplicated; R11.0 Nausea
CPT/HCPCS: 80048; 85025; 99283; A4216

== ENCOUNTER 2025-07-13 13:25 | Outpatient (CLI) | payer OTHER, SELFPAY | END 2025-07-13 23:59 | disposition home or self-care (01) | PROVIDERS: Referring Provider Nurse Practitioner Family; Visit Provider Nurse Practitioner Family | DX: N89.8 Other specified noninflammatory disorders of vagina (principal) ==

== ENCOUNTER 2025-07-16 20:37 | Emergency (ER) | payer OTHER, SELFPAY ==
[2025-07-16 20:38] VITALS: BP 125/75; PULSE 105; RESP 20; TEMP 36.1; O2SAT 100; BMI 30.4
--- NOTE | 2025-07-16 21:09 | US_ITS ---
PROCEDURE: KIDNEY AND BLADDER 07/16/2025 REASON FOR EXAM: RIGHT FLANK PAIN, HISTORY OF KIDNEY STONES, PREG TECHNIQUE: Procedure Code: USKI Modality: US Procedure: KIDNEY AND BLADDER COMPARISON: Abdominal CT 09/01/2023. FINDINGS: Bilateral kidneys appear normal in size and cortical thickness. Right kidney measures 9.6 x 4.8 x 4.5 cm. Left kidney measures 10.3 x 5.3 x 4.5 cm. No hydronephrosis on either side. There is a small 5 mm nonobstructive stone in the lower pole of the right kidney. No additional renal calculi are visualized. Urinary bladder is underdistended, limiting its evaluation. US/Kidney and Bladder IMPRESSION: Small 5 mm nonobstructive right renal stone. No hydronephrosis on either side. Reading Location: [facility]
[2025-07-16 21:22] LABS: Hematocrit 34.7 % (37-47); Hemoglobin 12.1 g/dL (12.0-15.0); Immature Granulocytes Count 0.040 X10^3/uL (0.0-0.0); Mean Corp Hgb Conc 34.9 g/dL (32-36); Mean Corpuscular Volume 90.4 fL (81-99); Mean Platelet Vol. 11.8 fl (6.2-12.0); NRBC Flagged by Analyzer 0 % (0-5); Platelet Count 227 K/mm3 (150-450); RBC Distribution Width CV 12.2 % (11.6-14.6); RBC Distribution Width SD 39.5 fl (35.1-43.9); Red Blood Count 3.84 M/mm3 (4.2-5.4); White Blood Count 9.5 K/mm3 (4.4-11.0)
[2025-07-16] MEDS: 0.9% Normal Saline (1000mL) 1,000 ML 999 ML IV (21:23)
[2025-07-16 21:25] LABS: Mucous, Urine 0 SEEN /hpf (<or=2+)
[2025-07-16 21:35] LABS: Color, Urine Straw (Yellow); Glucose, Dipstick Normal (Normal); Ketone-Dipstick Negative (Negative); Leukocyte Esterase-Dipstick 100 /ul (Negative); Nitrite-Dipstick Negative (Negative); Occult Blood-Urine 25 /ul (Negative); Protein-Dipstick 15 mg/dl (Negative); Specific Gravity, Urine 1.025 (1.002-1.030); Urine Bilirubin Dipstick Negative (Negative)
--- OUTSIDE RECORDS SUMMARY | 2025-07-16 21:44 | XMS RPT_ITS | CCD ---
Author Organization 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 Role Phone MICMINA, JUDY S Primary Care Unavailable BRANDON DELUCA Admitting Unavailable BRANDON DELUCA Attending Unavailable KUNAL GODWIN Attending Unavailable MICMINA, JUDY S Primary Care Unavailable Yasir Abreu Unavailable Unavailable Kunal Godwin Unavailable Unavailable Miclat, Judy Sapuriada Unavailable Unavaila Jennifer Day Dipasupil Unavailable Unavaila Yasir Hampton Unavailable Unavailable Miclat, Judy S Unavailable Unavailable System, Provider Not In Primary Care Provider Un available Dew, Chan Unavailable Unavailable Jennifer Martinez D Unavailable Unavailable Trosterud, Denise Unavailable Unavailable JAROD GARCIA Attending Unavailabl e SYSTEM, PROVIDER NOT IN Primary Care UnavailYasir Painter MD Unavailable UnavailKunal Tolliver MD Unavailable Unavailable Miclat, Judy S Unavailable Unavailable Jennifer Martinez D Unavailable Unavailable Unavailable Primary Care Provider UnavailDr. Laurel Morley Attending Provider Unavailable Primary Care Provider UnavailNATASHA Norman Admitting Unavailable NATASHA ART Attending Unavailable GALE JENNINGS Admitting Unavailab GALE Wong Attending Unavailab NATASHA Rodriguez Admitting Unavailable NATASHA ART Attending Unavailable NICK RÍOS Admitting Unavailable NICK RÍOS Attending Unavailable Judy Stoner MD Primary Care Provider Judy Stoner MD Primary Care Provider [phone] Cata Chaney Unavailable PUTKA, ADAL S Attending Unavailable DELAAT, CATA A Referring Unavailable MICLAT, JUDY S Primary Care Unavailable PUTKA, ADAL S Attending Unavailable PUTKA, ADAL S Referring Unavailable MICLAT, JUDY S Primary Care Unavailable Miclat , Judy S Primary Care Provider [phone] DELAAT, CATA A Attending Unavailable MICLAT, UJDY S Referring Unavailable MICLAT, JUDY S Primary Care Unavailable DELAAT, CATA A Attending Unavailable MICLAT, JUDY S Primary Care Unavailable DELAAT, CATA A Attending Unavailable MICLAT, JUDY S Primary Care Unavailable BERNABALE, BEN N Attending Unavailable DELAAT, CATA A Referring Unavailable MICLAT, JUDY S Primary Care Unavailable BERNABALE, BEN N Attending Unavailable DELAAT, CATA A Referring Unavailable MICLAT, JUDY S Primary Care Unavailable HAURY, MADDY Referring Unavailable HAURY, MADDY Referring Unavailable ESHA, KARMON Referring Unavailable MALORIE BROWN Attending Unavailable DANIEL, AMINAH Attending Unavailable NICOLE AZAR Attending Unavail able SHABNAM OLIVAREZ Attending Unavailable WISWELL, MALORIE Attending Unavailable ESHA, KARCHICO Attending Unavailable SANCHEZ, AMINAH Referring Unavailable MICLAT, JUDY SAPURIADA Referring Unavaila ble HAQUE, NATASHA Attending Unavailable HAQUE, NATASHA Referring Unavailable MICLAT, JUDY SAPURIADA Referring Unavaila ble QUENTIN BE Attending Unavailable Care Physician, No Primary Primary Care Provider Unavailable Care Physician, No Primary Referring Provider Un available Roof Eren ARGUELLES Attending Provider Sinanune Cintia JUARES Attending Unavailable Fredis, Laurel Primary Care Unavailable Fredis, Laurel Referring Unavailable Schwiger Jaycob Attending Unavailable Schwiger, Jaycob Referring Unavailable Care Physician, No Primary Primary Care Unava ilable Roof Eren JUARES Attending Unavailable Roof Eren JUARES Referring Unavailable Care Physician, No Primary Primary Care Unava ilable Roof Eren JUARES Attending Unavailable Care Physician, No Primary Primary Care Unava ilable Care Physician, No Primary Referring Unava ilable Allergies Allergy Classification Reported Allergen(s) Allergy Type Date of Onset Reaction(s) Facility Anti-Epileptic Agents (2 sources) levETIRAcetam; Translations: [LEVETIRACETAM] Drug Allergy 12-09-[address] [facility] Repository Fish (1 source) shellfish, unspecified Food [facility] Work [facility]: Shellfish (1 source) Shellfish; Translations: [SHELLFISH DERIVED] Food Allergy 12-09-[address] [facility] Three Repository (4 sources) levETIRAcetam Drug [facility]ergy [facility] Work Phone: (20 sources) shellfish, unspecified; Translations: [SHELLFISH] Allergy to substance (finding) 03-27-20 10 [facility] (20 sources) levETIRAcetam; Translations: [LEVETIRACETAM] Drug Allergy 12-09-19 21 Hives, Swelling [facility] Comment on above: edema (4 sources) Shellfish; Translations: [shellfish derived] Propensity to adverse reactions to drug 12-09-19 21 [facility] Comment on above: edema (14 sources) Cephalexin; Translations: [CEPHALEXIN] Drug Allergy 05-26-20 20 Hives, Swelling [facility] (20 sources) SUMAtriptan; Translations: [SUMATRIPTAN] Drug Allergy 05-16-20 24 Other: See Comments, Unknown [facility] Comment on above: chest dizziness, num bes in arms, dizzy (8 sources) Shellfish; Translations: [SHELLFISH CONTAINING PRODUCTS] Drug Intolerance 03-27-[address] [facility] Work Phone: (1 source) levETIRAcetam Drug Allergy 07-13-20 [facility] Repository (1 source) SUMAtriptan Drug Allergy 07-13-20 25 [facility] Repository Medications Current Medications Medication Drug Class(es) Dates Sig (Normalized) Sig (Original) aspirin 81 mg delayed release oral tablet (20 sources) Platelet Aggregation Inhibitor, Nonsteroidal Anti-inflammatory Drug Start: 06-27-2025 take 1 tablet by mouth once daily aspirin, enteric coated (ECOTRIN LOW STRENGTH) 81 mg EC tablet Indications: 7 weeks gestation of (HCC) Take 1 tablet by mouth once daily. 90 tablet 3 06/27/2025 Active Start: 11-27-2023 End: 12-05-2024 take 1 tablet by mouth once daily Aspirin 81 mg tablet,delayed release (DR/EC) Discontinued 81 mg PO DAILY May 29, 2024 12:00am June 19, 2024 8:18am high blood pressure Comment on above: [facility] cephalexin 500 mg oral capsule (1 source) Cephalosporin Antibacterial Start: End: take 1 capsule by mouth four times daily cephALEXin (KEFLEX) 500 mg capsule Take 1 capsule by mouth four times daily for 5 days. 20 capsule 0 01/13/2024 01/18/2024 Active Comment on above: Take 1 capsule by mo [facility] four times daily for 5 days. Docusate (20 sources) docusate sodium (COLACE ORAL) Take by mouth. Active famotidine 20 mg oral tablet (20 sources) Histamine-2 Receptor Antagonist Start: End: take 1 tablet by mouth twice daily Famotidine 20 mg tablet Active 20 mg PO TWICE A DAY July 13, 2025 12:00am Start: 01-18-2024 End: 04-17-2024 take 1 tablet by mouth twice daily famotidine (PEPCID) 20 mg tablet Take 1 tablet by mouth two times a day. 60 tablet 2 01/18/2024 04/17/2024 Active End: 10-03-2024 famotidine (PEPCID ORAL) Joao e by mouth as needed. 10/03/2024 Discontinued famotidine (PEPC ID ORAL) Take by mouth as needed. Active famotidine (PEPC ID ORAL) Take by mouth as needed. 0 Active Comment on above: Take 1 tablet by [facility] two times a day. folic acid/vit B complex and C (FOLIC ACID XTRA ORAL) (5 sources) folic acid/vit B complex and C (FOLIC ACID XTRA ORAL) Take by mouth. Active nystatin 624321 unt/ml topical cream (2 sources) Polyene Antifungal Start: 07-13-2025 Nystatin 100,000 unit/gram cream Active 1 NMA TOPICAL daily 15 0 July 13, 2025 12:00am Start: 07-13-2025 End: 07-13-2025 take 1 mL by mouth once Nystatin 100,000 unit/mL torey pension Discontinued 1 mL PO ONCE 60 0 July 13, 2025 12:00am July 13, 2025 2:08pm swish and swallow Pnv No.95-Ferrous Fumarate-Fa () 28 mg iron- 800 mcg tablet (1 source) Start: 04-27-2024 Pnv No.95-Ferr ous Fumarate-Fa () 28 mg iron- 800 mcg tablet Active 1 {tbl} PO DAILY April 27, 2024 12:00am polyethylene glycol 3350 27582 mg powder for oral solution (8 sources) Osmotic Laxative Start: 01-18-2024 End: 04-17-2024 polyethylene glycol 3350 (MIRALAX) 17 gram/dose powder Take 17 g by mouth as directed. Dissolve dose in 4 - 8 ounces of liquid and take as directed. 238 g 2 01/18/2024 04/17/2024 Active polyethylene gly col 3350 (MIRALAX) 17 gram/dose powder Take by mouth once daily. Dissolve dose in 4 - 8 ounces of liquid and take as directed. Active Comment on above: Take 17 g by mouth a s directed. Dissolve dose in 4 - 8 ounces of liquid and take as directed. polyethylene glycol 3350 [id number] mg / potassium chloride 1480 mg / sodium bicarbonate 5720 mg / sodium chloride 49139 mg powder for oral solution (1 source) Osmotic Laxative Start: 11-28-19 End: 11-28-19 take 420 g by mouth once polyethylene glycol-electrolytes (Nulytely [place]) 420 gram solution Indications: Encounter for screening colonoscopy Take 4,000 mL by mouth 1 time for 1 dose. 4000 mL 11/28/2024 11/28/2024 Active 21/iron fu/folic acid ( COMPLETE PO) (2 sources) 21/iron fu/folic acid ( COMPLETE PO) Take by mouth. Active no122/iron/folic acid ( MULTI ORAL) (5 sources) no122/iron/folic acid ( MULTI ORAL) Take by mouth. Active promethazine hydrochloride 12.5 mg oral tablet (3 sources) Phenothiazine Start: 07-13-20 take 12.5-25 mg by mouth every six hours as needed Promethazine 12.5 mg tablet Active 12.5 - 25 mg PO EVERY 6 HOURS as needed July 13, 2025 12:00am Start: 06-19-2025 take 1-2 tablets by mouth every six hours as needed promethazine (PHENERGAN) 12.5 mg tablet Indications: Nausea and vomiting in (HCC) Take 1-2 tablets by mouth every 6 hours as needed. 60 tablet 1 06/19/2025 Active tioconazole 0.065 mg/mg vaginal ointment (1 source) Azole Antifungal Start: 07-13-2025 Tioconazole ( Monistat 1 (Tioconazole)) 6.5 % ointment Active 1 NMA VAGINAL ONCE 4.6 0 July 13, 2025 12:00am administer at bedtime Completed/Discontinued Medications Medication Drug Class(es) Dates Sig (Normalized) Sig (Original) acetaminophen 500 mg oral tablet (20 sources) Start: 06-19-2024 End: 07-13-2025 take 1-10 tablets by mouth every six hours as needed for pain Acetaminophen 500 mg Tablet Discontinued 1000 mg PO EVERY 6 HOURS NEEDED as needed for Pain 1-10 Or Fever 0 0 June 19, 2024 12:00am July 13, 2025 1:35pm acetaminophen (T YLENOL 8 HOUR ORAL) Take by mouth. Active acetaminophen (T YLENOL 8 HOUR ORAL) Take by mouth. 0 Active acetaminophen 250 mg / aspirin 250 mg / caffeine 65 mg oral tablet (2 sources) Platelet Aggregation Inhibitor, Nonsteroidal Anti-inflammatory Drug, Central Nervous System Stimulant, Methylxanthine Start: 09-18-2023 End: 04-27-2024 Rikzfck-Rtyqdcilazjmz-Hhygkb ne (Excedrin Migraine) 250-250-65 mg tablet Discontinued 1 {tbl} PO ONCE September 18, 2023 1:00am April 27, 2024 1:58am acetaminophen 325 mg / oxyCODONE hydrochloride 5 mg oral tablet (1 source) Opioid Agonist Start: 10-19-2020 take 1 tablet by mouth every six hours as needed for pain oxyCODONE-Acetaminophen 5-325 MG Oral Tablet TAKE 1 TABLET EVERY 6 HOURS NEEDED FOR PAIN. Quantity: 28 Refills: 0 Yasir Abreu MD Start : 19-Oct-2020 Active Start: 10-19-2020 take 1 tablet by beckie every six hours as needed for pain oxyCODONE-Acetaminophen 5-325 MG Oral Tablet TAKE 1 TABLET EVERY 6 HOURS NEEDED FOR PAIN. Quantity: 28 Refills: 0 Yasir Abreu MD Start : 19-Oct-2020 Active [id number] 200 actuat albuterol 0.09 mg/actuat metered dose inhaler (11 sources) beta2-Adrenergic Agonist Start: 12-19-2024 End: 07-13-2025 Albuterol Sulfate 90 mcg/actuation HFA aerosol inhaler Discontinued 1 NMA INHALATION TWICE A DAY December 19, 2024 1:00am July 13, 2025 1:35pm Start: 09-18-2023 End: 05-15-2024 Albuterol Sulfate 90 mcg/act uation HFA aerosol inhaler Discontinued 1 NMA INHALATION ONCE September 18, 2023 1:00am May 15, 2024 5:52am Start: 09-18-2023 Albuterol Sulf ate Active 1 INH INHALATION ONCE September 18, 2023 1:00am Start: 08-03-2010 End: 12-26-2023 take 2 puff(s) by inhalation every four to six hours albuterol HFA (VENTOLIN HFA) 90 mcg/Actuation INHALATION HFAA Indications: Cough , Asthma, mild intermittent 2 puffs via spacer every 4-6 hours 1 2 08/03/2010 12/26/2023 Discontinued albuterol sulfat e (Proair Digihaler) 90 mcg/actuation aero powdr breath act w/sensor inhaler Inhale 240 puffs every 6 hours if needed for wheezing. Active Comment on above: 2 puffs via spacer e very 4-6 hours amoxicillin 500 mg oral tablet (3 sources) Penicillin-class Antibacterial Start: take 1 tablet by mouth twice daily Amoxicillin 500 mg tablet take 1 tablet by mouth twice a day as directed 0 09/15/2023 Active Comment on above: take 1 tablet by beckie th twice a day as directed busPIRone hydrochloride 5 mg oral tablet (2 sources) Start: End: take 1 tablet by mouth three times daily as needed for anxiety Buspirone 5 mg tablet Discontinued 5 mg PO THREE TIMES A DAY as needed for anxiety 30 0 September 18, 2023 1:00am April 27, 2024 1:58am clindamycin 10 mg/ml topical foam (2 sources) Lincosamide Antibacterial Start: End: Clindamycin Phosphate 1 % foam Discontinued 1 NMA TOPICAL DAILY September 18, 2023 1:00am April 27, 2024 1:59am cloNIDine hydrochloride 0.1 mg oral tablet (5 sources) Central alpha-2 Adrenergic Agonist Start: take 1 tablet by mouth in the morning, then take 0.5 tablet by mouth in the evening cloNIDine HCl - 0.1 MG Oral Tablet take 1 tab in morning and 1/2 tab in evening Quantity: 135 Refills: 3 Tato MANZO, Kunal Start : 27-Jul-2018 Active cyclobenzaprine hydrochloride 10 mg oral tablet (2 sources) Muscle Relaxant Start: End: take 1 tablet by mouth every twelve hours Cyclobenzaprine 10 mg tablet Discontinued 10 mg PO Q12H April 27, 2024 12:00am May 15, 2024 5:52am Start: 01-13-2024 take 1 tablet by beckie th every eight hours as needed cyclobenzaprine (FLEXERIL) 10 mg tablet Take 1 tablet by mouth three times a day as needed. 15 tablet 0 01/13/2024 Active Comment on above: Take 1 tablet by beckie th three times a day as needed. dicyclomine hydrochloride 10 mg oral capsule (2 sources) Anticholinergic Start: End: take 2 capsules by mouth every six hours as needed Dicyclomine 10 mg capsule Discontinued 20 mg PO EVERY 6 HOURS as needed for Abdominal Discomfort 30 September 01, 2023 3:06am April 27, 2024 1:59am Start: 09-01-2023 take 20 mg by mouth every six hours Dicyclomine Active 20 MG PO EVERY 6 HOURS September 01, 2023 3:06am Ethinyl Estradiol / Ferrous fumarate / Norethindrone (9 sources) Estrogen Start: 03-26-2025 End: 04-30-2025 take 1 tablet by mouth once CHANDLER FE , 1 mg-20 mcg (21)/75 mg (7) per tablet Indications: Encounter for repeat prescription of oral contraceptives Take 1 tablet by mouth every afternoon. 90 tablet 4 03/26/2025 04/30/2025 Discontinued (Course of therapy completed) Start: 03-26-2025 take 1 tablet by mouth once LA RIN FE 1/20, 28, 1 mg-20 mcg (21)/75 mg (7) per tablet Indications: Encounter for repeat prescription of oral contraceptives Take 1 tablet by mouth every afternoon. 90 tablet 4 03/26/2025 Active Start: 09-07-2023 End: 11-27-2023 take 1 tablet by mouth once CHANDELR FE 1/20, 28, 1 mg-20 mcg (21)/75 mg (7) per tablet Take 1 tablet by mouth every afternoon. 90 tablet 4 09/07/2023 11/27/2023 Discontinued (Course of therapy completed) Start: 09-07-2023 take 1 tablet by mouth once LA RIN FE 1/20, 28, 1 mg-20 mcg (21)/75 mg (7) per tablet Take 1 tablet by mouth every afternoon. 90 tablet 4 09/07/2023 Active Start: 04-11-2023 End: 09-07-2023 take 1 tablet by mouth once CHANDLER FE 1/20, 28, 1 mg-20 mcg (21)/75 mg (7) per tablet Take 1 tablet by mouth every afternoon. 04/11/2023 09/07/2023 Discontinued Start: 04-11-2023 End: 09-07-2023 take 1 tablet by mouth once CHANDLER FE 1/20, 28, 1 mg-20 mcg (21)/75 mg (7) per tablet Take 1 tablet by mouth every afternoon. 0 04/11/2023 09/07/2023 Discontinued Start: 04-11-2023 take 1 tablet by mouth once LA RIN FE 1/20, 28, 1 mg-20 mcg (21)/75 mg (7) per tablet Take 1 tablet by mouth every afternoon. 0 04/11/2023 Active Comment on above: Take 1 tablet by beckie th every afternoon. ferrous sulfate 325 mg oral tablet (14 sources) Start: 06-16-2024 End: 12-19-2024 Ferrous Sulfate (Iron (Ferrous Sulfate)) 325 mg (65 mg iron) tablet Discontinued 325 mg PO .COMPLEX June 16, 2024 12:00am December 19, 2024 11:32pm anemia 325 mg orally takes M,W,F; End: 10-03-2024 ferrous sulfate (IRON ORAL) Take by mouth. 10/03/2024 Discontinued ferrous sulfate (IRON ORAL) Take by mouth. Active ferrous sulfate (IRON ORAL) Take by mouth. 0 Active 120 actuat fluticasone propionate 0.044 mg/actuat metered dose inhaler (6 sources) Corticosteroid Start: 07-11-2013 End: 12-26-2023 take 2 puff(s) by inhalation once daily fluticasone (FLOVENT HFA) 44 mcg/actuation inhaler Indications: Asthma, mild intermittent Inhale 2 Puffs as instructed once daily. VIA SPACER 1 Inhaler 8 07/11/2013 12/26/2023 Discontinued Comment on above: Inhale 2 Puffs as in structed once daily. VIA SPACER Fluticasone Propionate (Flovent Hfa) 44 mcg/actuation HFA aerosol inhaler (2 sources) Start: 09-18-2023 End: 04-27-2024 Fluticasone Propionate (Flovent Hfa) 44 mcg/actuation HFA aerosol inhaler Discontinued 1 NMA INHALATION TWICE A DAY September 18, 2023 1:00am April 27, 2024 1:59am administer with spacer Start: 09-18-2023 take 1 puff(s) by in halation twice daily Fluticasone Propionate (Flovent Hfa) 44 mcg/actuation HFA aerosol inhaler Active 1 PUFF INHALATION TWICE A DAY September 18, 2023 1:00am administer with spacer folic acid 0.8 mg oral tablet (17 sources) Start: 09-18-2023 End: 04-27-2024 take 0.8 mg by mouth once daily Folic Acid 800 mcg tablet Discontinued 0.8 mg PO DAILY September 18, 2023 1:00am April 27, 2024 1:59am Start: 09-18-2023 take 0.8 mg by mouth once ricky y Folic Acid Active 0.8 MG PO DAILY September 18, 2023 1:00am Start: 09-07-2023 take 1 tablet by mouth once da brad folic acid 800 mcg tablet Take 1 tablet by mouth once daily. 0 09/07/2023 Active Comment on above: Take 1 tablet by beckie th once daily. hydrocortisone acetate 25 mg rectal suppository (4 sources) Corticosteroid Start: End: Hydrocortisone Acetate 25 mg suppository Discontinued 25 mg RC TWICE A DAY December 19, 2024 1:00am July 13, 2025 1:35pm ibuprofen 600 mg oral tablet (9 sources) Nonsteroidal Anti-inflammatory Drug Start: 024 End: 025 take 1 tablet by mouth every six hours as needed for pain Ibuprofen 600 mg Tablet Discontinued 600 mg PO EVERY 6 HOURS NEEDED as needed for Pain Score 1-10 0 0 June 19, 2024 12:00am July 13, 2025 1:35pm Start: 08-26-2014 End: 09-07-2023 ibuprofen (MOTRIN) 800 mg ta blet Indications: Patellar tendinitis Take 1 tablet 3 x a day in 2 week courses 90 tablet 3 08/26/2014 09/07/2023 Discontinued Start: 01-20-2014 End: 09-07-2023 take 1 tablet by mouth every six hours as needed ibuprofen 200 mg tablet Take 1 tablet by mouth every 6 hours as needed. 0 01/20/2014 09/07/2023 Discontinued Comment on above: Take 1 tablet by [facility] every 6 hours as needed. Take 1 tablet 3 x a day in 2 week courses levonorgestrel 0.277705 mg/hr intrauterine system (12 sources) Progestin, Progestin-containing Intrauterine Device Start: 08-29-2024 End: 08-27-2032 levonorgestrel (MIRENA) 21 mcg/24hr (up to 8 yrs) 52 mg IUD 1 Each by INTRAUTERINE route as directed. 1 Each 08/29/2024 03/26/2025 Discontinued Start: 08-29-2024 End: 08-29-2024 1 Each, INTRAUTERINE, ONCE ( UP TO 30 DAYS AMB), 1 dose, On Mari 08/29/24 at 1230, Hazardous Potential Reproductive Risk Drug: Use appropriate PPE. Magnesium (15 sources) Start: 06-16-2024 End: 12-19-2024 take 2 tablets by mouth at bedtime Magnesium 250 mg tablet Discontinued 500 mg PO AT BEDTIME June 16, 2024 12:00am December 19, 2024 11:32pm headaches End: 10-03-2024 MAGNESIUM ORAL Take by mouth . 10/03/2024 Discontinued MAGNESIUM ORAL T keyon by mouth. Active MAGNESIUM ORAL T keyon by mouth. 0 Active minocycline 100 mg oral capsule (5 sources) Tetracycline-class Drug Start: 01-03-2019 Minocycline HCl - 100 MG Oral Capsule Quantity: 60 Refills: 0 Start : 03-Jan-2019 Active norethindrone 0.35 mg oral tablet (2 sources) Start: 08-01-2024 End: 08-29-2024 take 1 tablet by mouth once daily Norethindrone, Contraceptive, 0.35 mg tablet Take 1 tablet by mouth once daily. 28 tablet 4 08/01/2024 08/29/2024 Discontinued ondansetron 4 mg disintegrating oral tablet (2 sources) Serotonin-3 Receptor Antagonist Start: 09-01-2023 End: 05-15-2024 take 2 tablets by mouth every eight hours as needed for nausea Ondansetron 4 mg tablet,disintegr ating Discontinued 8 mg PO EVERY 8 HOURS NEEDED as needed for Nausea September 01, 2023 12:00am May 15, 2024 5:52am Start: 09-01-2023 take 8 mg by mouth e very eight hours as needed Ondansetron Active 8 MG PO EVERY 8 HOURS NEEDED September 01, 2023 12:00am oxaprozin 600 mg oral tablet (5 sources) Nonsteroidal Anti-inflammatory Drug Start: 08-26-2020 take 1 tablet by mouth twice daily Oxaprozin 600 MG Oral Tablet TAKE 1 TABLET TWICE DAILY. Quantity: 60 Refills: 1 Yasir Abreu MD Start : 26-Aug-2020 Active pantoprazole 40 mg delayed release oral tablet (2 sources) Proton Pump Inhibitor Start: 09-01-2023 End: 05-15-2024 take 1 tablet by mouth once daily Pantoprazole 40 mg tablet,delayed release (DR/EC) Discontinued 40 mg PO DAILY 14 September 01, 2023 12:00am May 15, 2024 5:52am 25/iron fum/folic/dha (-1 ORAL) (20 sources) End: 03-26-2025 25/iron fum/folic/dha (-1 ORAL) Take by mouth once daily. 03/26/2025 Discontinued 25/iron fum/folic/dha (-1 ORAL) Take by mouth once daily. Active 25/iron fum/folic/dha (-1 ORAL) Take by mouth once daily. 0 Active 25/iron fum/folic/dha (-1 ORAL) Take by mouth. 0 Active Comment on above: Take by mouth. Take by mouth once d aily. rizatriptan 5 mg oral tablet (2 sources) Serotonin-1b and Serotonin-1d Receptor Agonist Start: 09-18-2023 End: 04-27-2024 take 1 tablet by mouth every two hours Rizatriptan 5 mg tablet Discontinued 0 PO .COMPLEX September 18, 2023 1:00am April 27, 2024 1:59am take 1 tablet at onset of headache; if no relief, may repeat 1 tablet after at least 2 hrs PO Problems Active Problems Problem Classification Problem Date Documented Da te Episodic/Chronic Abdominal pain (5 sources) Generalized abdominal pain; Translations: [Generalized abdominal pain] Onset: 2024 09-25-2023 Episodic Adjustment disorders (10 sources) Adjustment disorder; Translations: [Other specified adjustment reactions] Onset: 11-28-2024 11-28-2024 Chronic Administrative/social admission (1 source) Persons encountering health services in other specified circumstances; Translations: [Other reasons for seeking consultation] 09-18-2023 Episodic Anal and rectal conditions (19 sources) Rectal pain; Translations: [Other specified diseases of anus and rectum] Onset: 11-28-2024 11-28-2024 Episodic Anxiety disorders (4 sources) Anxiety disorder, unspecified; Translations: [Anxiety state, unspecified] Onset: 10-25-2023 09-18-2023 Chronic Asthma (20 sources) Exacerbation of asthma; Translations: [Asthma] Onset: 11-22-2007 08-11-2009 Chronic Complications of surgical procedures or medical care (1 source) Hemorrhage of colon; Translations: [Postprocedural hemorrhage of a digestive system organ or structure following a digestive system procedure] 12-27-2024 Episodic Disorders usually diagnosed in infancy childhood or adolescence (10 sources) Transient childhood tic; Translations: [Transient tic disorder] Onset: 11-28-2024 11-28-2024 Chronic Genitourinary symptoms and ill-defined conditions (6 sources) Blood in urine; Translations: [Hematuria, unspecified] 05-16-2024 Episodic Headache; including migraine (20 sources) Headache; Translations: [Persistent headaches] Onset: 05-31-2024 05-31-2024 Episodic Hemorrhoids (1 source) Bleeding internal hemorrhoids; Translations: [Other hemorrhoids] 12-28-2024 Episodic Hypertension complicating ; childbirth and the puerperium (1 source) Hypertension complicating ; Translations: [Unspecified maternal hypertension, third trimester] 05-17-2024 Chronic Hypertension complicating ; childbirth and the puerperium (20 sources) Hypertension AND/OR vomiting complicating childbirth AND/OR puerperium; Translations: [Gestational [-induced] hypertension without significant proteinuria, third trimester] Onset: 05-16-2024 Resolved: 08-01-2024 05-16-2024 Episodic Immunizations and screening for infectious disease (2 sources) Vaccination needed; Translations: [Encounter for immunization] Onset: 06-27-2025 04-19-2024 Episodic Joint disorders and dislocations; trauma-related (4 sources) Patellofemoral stress syndrome; Translations: [Pain in joint, lower leg] Onset: 12-27-2024 12-27-2024 Chronic Joint disorders and dislocations; trauma-related (4 sources) Patellofemoral stress syndrome; Translations: [PFS (patellofemoral syndrome)] Episodic Menstrual disorders (2 sources) Missed period; Translations: [Irregular menstruation, unspecified] Onset: 04-29-2025 04-30-2025 Chronic OB-related trauma to perineum and vulva (1 source) First degree perineal laceration; Translations: [First degree perineal laceration during delivery] 06-18-2024 Episodic Other circulatory disease (1 source) Elevated blood-pressure reading, without diagnosis of hypertension; Translations: [Elevated blood pressure reading without diagnosis of hypertension] 09-18-2023 Episodic Other complications of (1 source) Uterine size for dates discrepancy; Translations: [Uterine size-date discrepancy, third trimester] 05-31-2024 Episodic Other complications of (1 source) Reduced movement; Translations: [Decreased movements, unspecified trimester, not applicable or unspecified] 04-27-2024 Episodic Other connective tissue disease (3 sources) Synovitis of knee; Translations: [Synovitis of knee] Chronic Other connective tissue disease (2 sources) Decreased range of knee movement ; Translations: [Decreased range of motion of right knee] Chronic Other connective tissue disease (5 sources) H/O: back problem; Translations: [Personal history of other musculoskeletal disorders] Episodic Other connective tissue disease (8 sources) Tendinitis of knee; Translations: [Other synovitis and tenosynovitis] Onset: 12-27-2024 12-27-2024 Episodic Other connective tissue disease (1 source) Synovitis of knee; Translations: [Other synovitis and tenosynovitis] Episodic Other connective tissue disease (2 sources) Other specified disorders of muscle; Translations: [Other specified disorders of muscle] Onset: 04-10-2025 Episodic Other female genital disorders (8 sources) Vulval irritation; Translations: [Other specified noninflammatory disorders of vulva and perineum] Onset: 12-27-2024 12-27-2024 Episodic Other female genital disorders (6 sources) Vaginal discharge; Translations: [Leukorrhea, not specified as infective] 06-21-2024 Episodic Other female genital disorders (1 source) Vaginal odor; Translations: [Other specified noninflammatory disorders of vagina] 06-21-2024 Episodic Other gastrointestinal disorders (1 source) Pain associated with defecation; Translations: [Other specified symptoms and signs involving the digestive system and abdomen] 10-22-2024 Episodic Other gastrointestinal disorders (5 sources) Constipation; Translations: [Constipation, unspecified] 10-22-2024 Episodic Other gastrointestinal disorders (4 sources) Constipation, unspecified; Translations: [Constipation, unspecified] Onset: 12-27-2024 Episodic Other gastrointestinal disorders (1 source) Heartburn; Translations: [Heartburn] 06-19-2025 Episodic Other gastrointestinal disorders (1 source) Heartburn; Translations: [Heartburn] Onset: 06-19-2025 Episodic Other inflammatory condition of skin (11 sources) Pruritus of vagina; Translations: [Pruritus of genital organs] Onset: 12-27-2024 11-18-2024 Episodic Other inflammatory condition of skin (1 source) Itching ; Translations: [Pruritus, unspecified] 06-11-2024 Episodic Other injuries and conditions due to external causes (2 sources) Injury of toe of left foot; Translations: [Unspecified injury of left foot, initial encounter] 05-08-2023 Episodic Other lower respiratory disease (8 sources) Cough; Translations: [Cough] Onset: 12-27-2024 12-27-2024 Episodic Other lower respiratory disease (5 sources) H/O: respiratory disease; Translations: [Personal history of other diseases of respiratory system] Episodic Other nervous system disorders (7 sources) Postoperative pain ; Translations: [Other acute postoperative pain] Onset: 12-27-2024 12-27-2024 Episodic Other non-traumatic joint disorders (6 sources) Knee pain; Translations: [Knee pain] Episodic Other non-traumatic joint disorders (4 sources) Decreased range of knee movement; Translations: [Stiffness of joint, not elsewhere classified, lower leg] Onset: 12-27-2024 12-27-2024 Episodic Other and delivery including normal (20 sources) with uncertain dates; Translations: [Encounter for supervision of normal , unspecified, first trimester] Onset: 11-27-2023 11-27-2023 Episodic Other upper respiratory disease (10 sources) Allergic rhinitis; Translations: [Allergic rhinitis, cause unspecified] Onset: 11-28-2024 11-28-2024 Chronic Other upper respiratory infections (8 sources) Viral upper respiratory tract infection; Translations: [Acute upper respiratory infections of unspecified site] Onset: 12-27-2024 12-27-2024 Episodic Otitis media and related conditions (13 sources) Fluid level behind tympanic membrane; Translations: [Acute left otitis media] Onset: 12-27-2024 12-27-2024 Episodic Residual codes; unclassified (1 source) Contact with and (suspected) exposure to potentially hazardous body fluids; Translations: [Exposure to blood or body fluid] Episodic Residual codes; unclassified (1 source) History of clinical finding in subject; Translations: [Personal history of other specified diseases] Episodic Residual codes; unclassified (1 source) Gestation period, 13 weeks; Translations: [13 weeks gestation of ] 01-03-2024 Episodic Residual codes; unclassified (1 source) Gestation period, 17 weeks; Translations: [17 weeks gestation of ] 02-14-2024 Episodic Residual codes; unclassified (1 source) Gestation period, 19 weeks; Translations: [19 weeks gestation of ] 02-14-2024 Episodic Residual codes; unclassified (1 source) Gestation period, 24 weeks; Translations: [24 weeks gestation of ] 03-21-2024 Episodic Residual codes; unclassified (2 sources) Gestation period, 30 weeks; Translations: [30 weeks gestation of ] 05-03-2024 Episodic Residual codes; unclassified (2 sources) Gestation period, 32 weeks; Translations: [32 weeks gestation of ] 05-16-2024 Episodic Residual codes; unclassified (1 source) Gestation period, 33 weeks; Translations: [33 weeks gestation of ] 05-23-2024 Episodic Residual codes; unclassified (2 sources) Gestation period, 34 weeks; Translations: [34 weeks gestation of ] 05-31-2024 Episodic Residual codes; unclassified (2 sources) Gestation period, 35 weeks; Translations: [35 weeks gestation of ] 06-03-2024 Episodic Residual codes; unclassified (3 sources) Gestation period, 36 weeks; Translations: [36 weeks gestation of ] 06-10-2024 Episodic Residual codes; unclassified (3 sources) Gestation period, 7 weeks; Translations: [Less than 8 weeks gestation of ] 06-27-2025 Episodic Residual codes; unclassified (3 sources) History of gestational hypertension; Translations: [Personal history of other complications of , childbirth and the puerperium] Onset: 06-27-2025 06-27-2025 Episodic Residual codes; unclassified (1 source) Less than 8 weeks gestation of ; Translations: [7 weeks gestation of (HCC)] Onset: 06-27-2025 Episodic Residual codes; unclassified (1 source) Gestation period, 37 weeks; Translations: [37 weeks gestation of ] 06-27-2024 Episodic Sprains and strains (18 sources) Low back strain; Translations: [Sprain of ankle] Onset: 12-27-2024 12-27-2024 Episodic Unclassified (3 sources) Unspecified convulsions; Translations: [Unspecified convulsions] Onset: 06-11-2018 Unclassified (1 source) Transformed migraine; Translations: [Full-term ] 09-18-2023 Unclassified (20 sources) [facility] - COMMON Onset: 11-27-2023 11-27-2023 Unclassified (20 sources) Education - [place] Onset: 11-27-2023 11-27-2023 Unclassified (1 source) Low back pain without sciatica, unspecified back pain laterality, unspecified chronicity; Translations: [Low back pain without sciatica, unspecified back pain laterality, unspecified chronicity] Onset: 04-29-2025 Past or Other Problems Problem Classification Problem Date Documented Da te Episodic/Chronic Calculus of urinary tract (20 sources) Kidney stone; Translations: [Calculus of kidney] Onset: 01-18-2024 01-24-2024 Episodic Contraceptive and procreative management (5 sources) Intrauterine contraceptive device in situ; Translations: [Encounter for routine checking of intrauterine contraceptive device] Onset: 11-01-2024 10-03-2024 Episodic Fluid and electrolyte disorders (20 sources) Dehydration; Translations: [Dehydration] Onset: 01-18-2024 01-18-2024 Episodic Gastrointestinal hemorrhage (15 sources) Hematochezia; Translations: [Melena] Onset: 11-28-2024 11-28-2024 Episodic Intestinal infection (4 sources) Other specified bacterial intestinal infections; Translations: [Helicobacter pylori [H. pylori]] Onset: 10-25-2023 09-18-2023 Episodic Miscellaneous mental health disorders (10 sources) Adjustment insomnia; Translations: [Transient disorder of initiating or maintaining sleep] Onset: 11-28-2024 11-28-2024 Episodic Other circulatory disease (20 sources) Elevated blood-pressure reading without diagnosis of hypertension; Translations: [Elevated blood-pressure reading, without diagnosis of hypertension] Onset: 05-14-2024 Resolved: 08-01-2024 05-15-2024 Episodic Other circulatory disease (3 sources) Elevated blood pressure; Translations: [Elevated blood-pressure reading, without diagnosis of hypertension] Onset: 10-25-2023 12-27-2024 Episodic Other complications of (20 sources) Anemia in mother complicating , childbirth AND/OR puerperium; Translations: [Anemia complicating , third trimester] Onset: 05-31-2024 Resolved: 08-01-2024 05-31-2024 Chronic Other complications of (20 sources) RhD negative; Translations: [Other specified related conditions, unspecified trimester] Onset: 12-27-2023 Resolved: 08-01-2024 12-27-2023 Episodic Other complications of (20 sources) Abdominal pain in ; Translations: [Other specified related conditions, unspecified trimester] Onset: 01-13-2024 Resolved: 05-14-2024 01-14-2024 Episodic Other complications of (16 sources) Nausea and vomiting; Translations: [Vomiting of , unspecified] Onset: 01-14-2024 Resolved: 05-14-2024 01-14-2024 Episodic Other complications of (20 sources) Back pain complicating ; Translations: [Back pain affecting in second trimester] Onset: 01-13-2024 Resolved: 05-14-2024 01-18-2024 Episodic Other complications of (20 sources) Vomiting of , unspecified; Translations: [Unspecified vomiting of , unspecified as to episode of care or not applicable] Onset: 01-14-2024 Resolved: 05-14-2024 05-14-2024 Episodic Other complications of (20 sources) High risk ; Translations: [Supervision of high risk , unspecified, third trimester] Onset: 11-27-2023 Resolved: 08-01-2024 05-31-2024 Episodic Other complications of (3 sources) Complication occurring during ; Translations: [Other specified diseases and conditions complicating ([facility])] Onset: 06-25-2024 12-27-2024 Episodic Other connective tissue disease (20 sources) Tendonitis of right patellar tendon; Translations: [Patellar tendinitis, right knee] Onset: 01-20-2014 Resolved: 11-27-2023 01-20-2014 Episodic Other nervous system disorders (3 sources) Unspecified abnormal involuntary movements; Translations: [Unspecified abnormal involuntary movements] Onset: 07-26-2018 Episodic Other nervous system disorders (10 sources) Muscle twitch; Translations: [Abnormal involuntary movements] Onset: 11-28-2024 11-28-2024 Episodic Other nervous system disorders (10 sources) Involuntary movement; Translations: [Abnormal involuntary movements] Onset: 11-28-2024 11-28-2024 Episodic Other nervous system disorders (20 sources) H/O: migraine; Translations: [Personal history of other diseases of the nervous system and sense organs] Onset: 11-27-2023 11-27-2023 Episodic Other nervous system disorders (20 sources) Intermittent tremor; Translations: [Tremor, unspecified] Onset: 11-27-2023 11-27-2023 Episodic Other non-traumatic joint disorders (20 sources) Pain in right knee; Translations: [Right knee pain] Onset: 01-20-2014 Resolved: 11-27-2023 01-20-2014 Episodic Other screening for suspected conditions (not mental disorders or infectious disease) (20 sources) Patient encounter status; Translations: [Encounter for other screening for genetic and chromosomal anomalies] Onset: 12-04-2023 Resolved: 12-26-2023 12-04-2023 Episodic Other skin disorders (5 sources) Acne vulgaris; Translations: [Acne vulgaris] Onset: 09-13-2017 11-28-2024 Episodic Other skin disorders (5 sources) Primary focal hyperhidrosis of palm of hand; Translations: [Primary focal hyperhidrosis, palms] Onset: 09-13-2017 11-28-2024 Episodic Residual codes; unclassified (20 sources) Gestation period, 28 weeks; Translations: [28 weeks gestation of ] Onset: 04-19-2024 Resolved: 05-14-2024 04-19-2024 Episodic Spondylosis; intervertebral disc disorders; other back problems (20 sources) Acute low back pain; Translations: [Acute right-sided low back pain without sciatica] Onset: 04-12-2024 Resolved: 08-01-2024 04-12-2024 Episodic Unclassified (6 sources) Patient encounter status; Translations: [Encounter for routine child health examination without abnormal findings] 03-05-2025 Unclassified (4 sources) History of clinical finding in subject; Translations: [History of fever] NEGATED: Highlighted row has not occurred!Residual codes; unclassified (20 sources) Disease Episodic Results Test Name Value Interpretation Reference Range Facility Urgent Care Visit Reporton 0 07-13-2025 Urgent Care Visit Report [facility] [address], [address] [place] [address] OFFICE VISIT Date of Service: 07/13/25 MR#: [id number] Acct: [id number] Name: KWADWO RODRIGUES Rep #: [id number] : 2000 Provider: BLANE aguayo Age/Sex: 25/F Location: [facility] Status: Signed Intake Vital Signs 12/19/24 21:37 07/13/25 13:40 Height 5 ft 2 in Weight: 168 lb BP 130/72 H Blood Pressure Location Lt brachial Position Sitting Pulse 87 Pulse Source Monitor Temp 98.5 F Temp Source Oral Pulse Oximetry (%) 100 Oxygen Delivery Method room air Intake Visit Reasons: CONCERN FOR YEAST INFECTION Chief Complaint: Vaginal Discharge Accompanied by: Self Allergies shellfish derived Allergy (Severe, Verified 07/13/25 13:34) Hives levetiracetam (From Keppra) Adverse Reaction (Severe, Verified 07/13/25 13:34) Hives sumatriptan (From Imitrex) Adverse Reaction (Unknown, Verified 07/13/25 13:34) Other Medications ???Medication ???Instructions ???Recorded ???Confirmed ???Type vit no.95-ferrous 1 tab PO DAILY 04/27/24 07/13/25 History fumarate 28 mg-folic acid 800 mcg tablet () famotidine 20 mg tablet 20 mg PO BID 07/13/25 07/13/25 His tory nystatin 100,000 unit/gram topical 1 applic topical QDAY #15 grams 07/13/25 07/13/25 Rx cream promethazine 12.5 mg tablet 12.5 - 25 mg PO Q6 PRN 07/13/25 History tioconazole 6.5 % vaginal ointment 1 appful vaginal ONCE #4.6 grams 07/13/25 07/13/25 Rx (Monistat 1 (tioconazole)) Nurse's Note: Vaginal irritation, vaginal redness, itching, white discharge. X 1 day. Patient is currently . 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 Possible yeast infection. She acknowledges vaginal irritation, vaginal redness, vaginal itching, and white discharge. This has been ongoing for 1 day. She acknowledges currently being . She did a self swab for BV/Yeast. ROS Genitourinary-Female: Positive for vaginal odor and Vaginal Itching Exam Const Other: Deferred. Coding Level of Care Code Off vis,new,level 3 Diagnoses Vaginal itching N89.8 Assessment and Plan Assessment and Plan (1) Vaginal itching: Status: Acute Plan: Will treat with Monistat as well as nystatin cream. She was encouraged to follow-up with [facility] team. Will await vaginal swab for further input. Orders: Orders [facility] Misc. 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 Malorie Brown DO [facility] Bacteria Ur Culton 5 Bacteria identified Cx Nom (U) ORGANISM ID: 1 50,000-<100,000 CFU/ml Mixed microbiota No further workup. Mixed microbiota can be due to???urine???contaminati on with skin bacteria at time of collection or presence of a long-term urinary catheter. If a new culture is needed, please consider re-education of the patient on proper midstream collection technique or straight catheterization for???urine???collection . Normal [facility] Comment on above: Performed By: #### 6 30-4 ####[facility] [id number] [address] [address] [place] C. trachomatis+N. gonorrhoea e DNA REYNA+probe Ql (Unsp spec)on 06-27-2025 C. trachomatis rRNA REYNA+probe Ql (Unsp spec) Not detected Normal Not detected [facility] Comment on above: Order Comment: Speci men Type: BLOOD SPECIMEN Ordering Facility: Judy Stoner MD Address: [address] [place] [address] Performed By: #### 2 4323-8, 90412-8, 3016-3 #### [facility] CLIA [id number] [address] [address] [place] N. 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 Confirmation of intrauterine . Confirmation of cardiac activity. Estimation of gestational age Impression cardiac activity is visualized, CRL is appropriate for clinical dates, corresponding to ADRIANO 02/11/26 Recommendations Follow up for 1st Trimester Anatomy with Nuchal Translucency as clinically indicated if desired. Method Transabdominal and transvaginal ultrasound examination. View: Adequate visualization Diallo . Number of embryos: 1 Dating LMP on: 05/07/2025 GA by LMP 7 w + 2 d ADRIANO by LMP: 02/11/2026 Ultrasound examination on: 06/27/2025 GA by U/S based upon: CRL GA by U/S 7 w + 2 d ADRIANO by U/S: 02/11/2026 Assigned: based on the LMP, selected on 06/27/2025 Assigned GA 7 w + 2 d Assigned ADRIANO: 02/11/2026 Biometry Standard FHR 151 bpm CRL 11.1 mm 7w 2d 85% [place] Assessment Gestational sac: visualized Location: intrauterine Yolk sac: visualized Embryo: visualized CRL 11.1 mm 7w 2d 85% [place] Cardiac activity: present FHR 151 bpm General Evaluation Cardiac activity present. FHR 151 bpm Performed By: Shabnam Olivarez CNP Read By: Shabnam Olivarez CNP MATERNAL MEDICINE [facility] Radiology Study observation (narrative) [facility] TRICHOMONAS VAGINALIS NAATon 06-27-2025 T. vaginalis DNA REYNA+probe Ql (Unsp spec) Not detected Normal Not detected [facility] Comment on above: Order Comment: Speci men Type: BLOOD SPECIMEN Ordering Facility: Judy Stoner MD Address: [address] [place] [address] Performed By: #### 2 4323-8, 57435-0, 3016-3 #### [facility] CLIA [id number] [address] [place] [address] [place] CNOVon 06-19-2025 CNOV Office Visit (OBGYWM ) -------- KWADWO RODRIGUES ([id number]) 2000 [facility] Date Time Provider Department 06/19/25 12:10 PM NICOLE AZAR OBGYWM During your visit today, we recorded the following information about you: Blood pressure Weight Last Period 120/70 76.7 kg 05/07/25 Nicole Azar MD 06/19/2025 12:47 PM Signed Obstetrics and Gynecology [place] VALET ATTENDANT Visit Subjective Recording using [employer] software for draft documentation of the visit was discussed with the 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 Patient/authorized wine sales representative agreed to proceed CHIEF COMPLAINT: The patient is a 25-year-old female, , presenting with concerns of nausea and vomiting during her current . HPI: Current - LMP: May 07, 2025 - Estimated gestational age: ~6 weeks - Has not had an official OB visit yet; first appointment scheduled for the . - Taking Miralax, Metamucil, and a vitamin. - Not . Nausea and Vomiting - Reports persistent nausea and vomiting throughout the day. - Sometimes experiences dry heaving instead of vomiting, especially if she hasn't eaten. - Vomit is sometimes green or yellow in color; denies presence of blood. - Denies right upper quadrant pain, fevers, chills, dizziness, or headaches. - Has tried using B6 and amelia hazel to help with the nausea without relief. - Taking Unisom and B6, but sometimes skips doses if she feels she won't be able to keep them down. - Interested in discussing alternative options for nausea management. Abdominal Cramping - Experiences lower abdominal cramping similar to her first . - Denies any extreme pain. Heartburn - Reports experiencing heartburn, but has not taken any medication for it. Kidney Stones - History of kidney stones during her first . - Not currently taking any medication for kidney stones. - Concerned about the potential recurrence of kidney stones during this . 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 Asthma (HCC) Left lateral knee pain 01/20/2014 Patellar tendinitis of right knee 01/20/2014 Unspecified asthma(493.90) dxed age 6 initially on [...] Grandfather lung Asthma Other gparents, cousin SOCIAL HISTORY[1] Current Outpatient Medications Medication Sig 21/iron fu/folic acid ( COMPLETE PO) Take by mouth. polyethylene glycol 3350 (MIRALAX) 17 gram/dose powder Take by mouth once daily. Dissolve dose in 4 - 8 ounces of liquid and take as directed. promethazine (PHENERGAN) 12.5 mg tablet Take 1-2 tablets by mouth every 6 hours as needed. famotidine (PEPCID) 20 mg tablet Take 1 tablet by mouth two times a day. folic acid/vit B complex and C (FOLIC ACID XTRA ORAL) Take by mouth. docusate sodium (COLACE ORAL) Take by mouth. acetaminophen (TYLENOL 8 HOUR ORAL) Take by mouth. No current facility-administered medications for this visit. ALLERGIES Allergen Reactions Levetiracetam Hives, Swelling Shellfish Hives Sumatriptan Other: See Comments Chest tightness and dizziness. REVIEW OF SYSTEMS: Constitutional: (-) fever, (-) chills Gastrointestinal: (+) nausea, (+) vomiting, (+) dry heaving, (+) heartburn, (+) lower abdominal cramping, (+) constipation, (-) right upper quadrant pain, (-) hematemesis Genitourinary: (-) vaginal bleeding Neurological: (-) dizziness, (-) headache Objective SENSITIVE EXAM: Sensitive exam not performed. PHYSICAL EXAM: BP 120/70 Wt 169 lb (76.7kg) LMP 05/07/2025 GENERAL: Pleasant; in no acute distress NEURO: alert and oriented x3 EXTREMITIES: normal Assessment AND Plan ASSESSMENT AND PLAN: 1. Nausea and vomiting in (HCC) (O21.9) 2. First trimester (HCC) (Z34.91) - Persistent nausea and vomiting; minimal relief with B6 and amelia hazel. - Start Phenergan 12.5 mg PO; may increase to 25 mg if inadequate relief; discussed potential sedation. - Continue B (more content not included)... Normal [facility] CNPNon 06-18-2025 CNPN Telephone (OBGYWM) -------- KWADWO RODRIGUES ([id number]) 2000 [address] [facility] Date Time Provider Department 06/18/25 KAT STACK OBGYWM During your visit today, we recorded the following information about you: Viry Kennedy RN 06/18/2025 9:08 AM Signed LMP 05/07/2025 ega 6w0d Pt calling stating she is having nausea periodically and has tried Vitamin B6 alone AND amelia AND not working. Has been vomiting at work-vomiting 1 to 2 times daily. Pt asking for Rx for PRN as smells are very bothersome at work. Past had kidney stones and was prescribed Zofran-and worked well for Pt. Reviewed Doxylamine (Unisom Sleeptab) Vitamin B6 25mg three times per day in combination with doxylamine 12.5mg at bedtime to prevent nausea AND Amelia extract 125-250mg every six hours, but did inform Pt that message would be sent to o/c provider to see if she is willing to send Rx to pharmacy for PRN Zofran and we would let her know. Pt voiced understanding. GIL Muniz Rebecca L, MD 06/18/2025 9:59 AM Signed add in virtul visit this afternoon or end of am, ok to use held slots on CP schedule. MD Radha Larios Lindsey, RN 06/18/2025 10:15 AM Signed Patient called and is requesting in office appointment. States she is unable to come into office today, requests tomorrow. Appointment scheduled. Cyndi Garcia RN Allergies As of Date: 06/18/2025 Noted Allergy Reaction LEVETIRACETAM 12/09/2020 4 - Hives 7 - Swelling SHELLFISH 03/27/2010 4 - Hives SUMATRIPTAN 05/16/2024 14 - Other: See Comments Comments: Chest tightness and dizziness. Date Reviewed: 04/29/2025 Reviewed by: Mirella Ferrer MA - Fully Assessed Reason for Visit: Nausea [70] Prescriptions as of 06/18/2025 - folic acid/vit B complex and C (FOLIC ACID XTRA ORAL) Take by mouth. - docusate sodium (COLACE ORAL) Take by mouth. - acetaminophen (TYLENOL 8 HOUR ORAL) Take by mouth. Problem List As Of Date 06/18/2025 Noted Resolved Asthma, mild intermittent [J45.20] 11/22/2007 Patellar tendinitis of right knee [M76.51] 01/20/2014 11/27/2023 Left lateral knee pain [M25.562] 01/20/2014 11/27/2023 Supervision of high risk in third tri*11/27/2023 08/01/2024 Hx of migraines [Z86.69] 11/27/2023 Occasional tremors [R25.1] 11/27/2023 Genetic screening [Z13.79] 12/04/2023 12/26/2023 Rh negative state in antepartum period [O26.899*12/27/2023 08/01/2024 Back pain affecting in second trimest*01/13/2024 05/14/2024 Nausea/vomiting in [O21.9] 01/14/2024 05/14/2024 Nephrolithiasis [N20.0] 01/18/2024 Dehydration [E86.0] 01/18/2024 Acute right-sided low back pain without sciatic*04/12/2024 08/01/2024 Abdominal pain during in second trime*04/12/2024 05/14/2024 28 weeks gestation of [Z3A.28] 04/19/2024 05/14/2024 Elevated BP without diagnosis of hypertension [*05/14/2024 08/01/2024 Gestational hypertension without significant pr*05/16/2024 08/01/2024 Persistent headaches [R51.9] 05/31/2024 Anemia complicating , third trimester *05/31/2024 08/01/2024 Hypokalemia [E87.6] 05/31/2024 Encounter Status:Closed by CYNDI GARCIA on 06/18/25 Normal [facility] BACTERIAL CULTURE, URINEOrde red By: Liam Villavicencio on 04-30-2025 Bacteria identified Cx Nom (U) 10,000 -<50,000 CFU/ml Normal urogenital brody [facility] Bacteria identified Cx Nom ( U)Ordered By: Liam Villavicencio on 04-30-2025 [facility] HCG QUANTITATIVEon 5 HCG.beta subunit Qn NINF [facility] Comment on above: Negative HCG.beta subunit Qnon 2024 Interpretation and review of laboratory results Normal [facility] THYROID STIMULATING HORMONEo n 04-30-2025 TSH Qn 1.93 m[IU]/L [facility] Comment on above: If the patient is pr egnant, TSH reference range varies by gestational period: First Trimester (weeks 9-12): 0.180-2.990 mIU/L Second Trimester: 0.110-3.980 mIU/L Third Trimester: 0.480-4.710 mIU/L Josue Coleman et al. A Practical Approach for the Verifications and Determination of Site- and Trimester-Specific Reference Intervals for Thyroid Function tests in . Thyroid, 2019:29:3:412-420. Raúl Eldridge, et al. 2017 Guidelines of the [place] Thyroid Association for the Diagnosis and Management of Thyroid Disease during and the . Thyroid, 2017:27:3:315-389. TSH Qnon 04-30-2025 Interpretation and review of laboratory results Normal [facility] B-HCG SerPl-aCncon 5 HCG.beta subunit Qn m[IU]/mL Normal <5.0 [facility] Comment on above: Order Comment: Speci men Type: BLOOD SPECIMEN Ordering Facility: Judy Stoner MD Address: [address] [place] [address] Result Comment: Nega tive Performed By: #### 2 4323-8, 57950-6, 3016-3 #### [facility] CLIA [id number] [address] [place] [address] [place] Bacteria Ur Culton 5 Bacteria identified Cx Nom (U) ORGANISM ID: 1 10,000 -<50,000 CFU/ml Normal urogenital brody Normal [facility] Comment on above: Performed By: #### 6 30-4 ####[facility] [id number] [address] [place] CNOVon 04-29-2025 CNOV Office Visit (OBGYWM ) -------- KWADWO RODRIGUES ([id number]) 2000 [facility] Date Time Provider Department 04/29/25 2:00 PM AMINAH SANCHEZ OBGYWM During your visit today, we recorded the following information about you: Blood pressure Weight Last Period 128/82 75.3 kg 03/28/25 Aminah Sanchez APRN.CNM 04/30/2025 3:28 PM Signed Obstetrics and Gynecology [place] [employer] ATTENDANT Visit Subjective Recording using [employer] software for draft documentation of the visit was discussed with the 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 Patient/authorized wine sales representative agreed to proceed CHIEF COMPLAINT: Positive test HPI: The patient is a 25-year-old female, , presenting with concerns about irregular bleeding and possible following IUD removal. The patient had her IUD removed on March 27 and experienced a 6-day menstrual period starting the next day. She reports that while on the IUD, she did not have regular periods but experienced irregular bleeding. On April 12, she had 3 days of very light bleeding. Last week, she took multiple tests due to symptoms of nausea and lower abdominal cramping radiating to her back, which she describes as really painful. The tests were faintly positive but did not become darker. She has not yet had her expected menstrual period. She is currently taking vitamins and folate. She has a history of UTIs and nephrolithiasis and performed a urine test at home, which was negative for infection. She denies unilateral pain, excessive bleeding, or any other symptoms. She notes that during her previous with her son, her tests were clearly positive and progressively darker. 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 Asthma (HCC) Left lateral knee pain 01/20/2014 Patellar tendinitis of right knee 01/20/2014 Unspecified asthma(493.90) dxed age 6 initially on [...] Paternal Grandfather lung Asthma Other gparents, cousin Social History Tobacco Use Smoking status: Never Smokeless tobacco: Never Vaping Use Vaping status: Never Used Substance Use Topics Alcohol use: Not Currently Comment: occasional Drug use: Never Current Outpatient Medications Medication Sig folic acid/vit B complex and C (FOLIC ACID XTRA ORAL) Take by mouth. docusate sodium (COLACE ORAL) Take by mouth. acetaminophen (TYLENOL 8 HOUR ORAL) Take by mouth. No current facility-administered medications for this visit. ALLERGIES Allergen Reactions Levetiracetam Hives, Swelling Shellfish Hives Sumatriptan Other: See Comments Chest tightness and dizziness. REVIEW OF SYSTEMS: Gastrointestinal: (+) nausea, (+) lower abdominal cramping Genitourinary: (+) amenorrhea Musculoskeletal: (+) back pain Objective SENSITIVE EXAM: Sensitive exam not performed. PHYSICAL EXAM: BP 128/82 Wt 166 lb (75.3kg) LMP 03/28/2025 GENERAL: Pleasant; in no acute distress PULMONARY: normal inspiratory effort ABDOMEN: soft, non-tender, no masses . No CVAT NEURO: alert and oriented x3 EXTREMITIES: normal Assessment AND Plan ASSESSMENT AND PLAN: 1. Encounter for test, result positive (HCC) (Z32.01) Positive home tests with faint lines; differential includes early or chemical . - Ordered serum hCG test to establish baseline levels. - If hCG levels are slightly elevated, repeat test in 2 days to assess trend. - Advised patient that if hCG levels reach a certain threshold, an ultrasound will be considered. - Educated patient on signs of ectopic , including severe, unrelenting pain and excessive bleeding, and advised to seek immediate medical attention if these occur. 2. Missed menses (N92.6) Irregular bleeding patterns post-IUD removal; likely due to hormonal regulation. - Informed patient that menstrual irregularities can persist for 3-4 months post-IUD removal. - Monitor menstrual cycle and report any significant changes. 3. Low (more content not included)... Normal [facility] TSH SerPl-aCncon 04-29-2025 TSH Qn 1.930 m[IU]/L Normal 0.270-4.200 [facility] Comment on above: Order Comment: Speci men Type: BLOOD SPECIMEN Ordering Facility: Judy Stoner MD Address: [address] [place] [address] Result Comment: If t he patient is , TSH reference range varies by gestational period: First Trimester (weeks 9-12): 0.180-2.990 mIU/L Second Trimester: 0.110-3.980 mIU/L Third Trimester: 0.480-4.710 mIU/L Josue Coleman, et al. A Practical Approach for the Verifications and Determination of Site- and Trimester-Specific Reference Intervals for Thyroid Function tests in . Thyroid, 2019:29:3:412-420. Raúl E, et al. 2017 Guidelines of the [place] Thyroid Association for the Diagnosis and Management of Thyroid Disease during and the . Thyroid, 2017:27:3:315-389. Performed By: #### 2 4323-8, 83251-8, 3016-3 #### [facility] CLIA [id number] [address] [place] [address] [place] UA DIP,URINE HCG (POC)on Beta HCG ( test) Ql (U) Negative Negative [facility] Comment on above: Location:[facility], [address], [place], [address] International Marketing Manager (POCT) Internal QC [place] [facility] Location:[facility], [address], [place], [address] [facility] POINT OF CARE [facility] CNPSandee 04-28-2025 OXANAN Telephone (OBGYWM) -------- KWADWO RODRIGUES ([id number]) 2000 [address] [facility] Date Time Provider Department 04/28/25 NATASHA HAQUE During your visit today, we recorded the following information about you: Gale Michel RN 04/28/2025 9:26 AM Signed Patient had IUD removed on 03/26. Had a menses on 03/28. On 04/12 she had light spotting for 3 days, but it was accompanied by intense cramping and nausea. She took a +UPT on Monday and it remained positive for 2 days later. Yesterday, she took a test and the 2nd line was faint. Patient questioning if she had a chemical . Would you like patient to schedule an appointment for tomorrow to discuss or to order HCG quant? GIL Jaime Amy, [place].OXANA 04/28/2025 4:48 PM Signed If I have an opening, I can see her or another provider can. Natasha Haque APRN.Lisa Kaur RN 04/28/2025 4:51 PM Signed Left message for patient to call office. No available openings with any provider tomorrow. AG does have some on 04/30 though. GIL Sharma Annalee, LPN 04/29/2025 10:47 AM Signed Patient scheduled Allergies As of Date: 04/28/2025 Noted Allergy Reaction LEVETIRACETAM 12/09/2020 4 - Hives 7 - Swelling SHELLFISH 03/27/2010 4 - Hives SUMATRIPTAN 05/16/2024 14 - Other: See Comments Comments: Chest tightness and dizziness. Date Reviewed: 03/26/2025 Reviewed by: Natasha Haque APRN.CHILDREN'S MINISTER - Fully Assessed Reason for Visit: +UPT [Other] Prescriptions as of 04/29/2025 - CHANDLER FE 11/18, , 1 mg-20 mcg (21)/75 mg (7) per tablet Take 1 tablet by mouth every afternoon. - docusate sodium (COLACE ORAL) Take by mouth. - acetaminophen (TYLENOL 8 HOUR ORAL) Take by mouth. Problem List As Of Date 04/28/2025 Noted Resolved Asthma, mild intermittent [J45.20] 11/22/2007 Patellar tendinitis of right knee [M76.51] 01/20/2014 11/27/2023 Left lateral knee pain [M25.562] 01/20/2014 11/27/2023 Supervision of high risk in third tri*11/27/2023 08/01/2024 Hx of migraines [Z86.69] 11/27/2023 Occasional tremors [R25.1] 11/27/2023 Genetic screening [Z13.79] 12/04/2023 12/26/2023 Rh negative state in antepartum period [O26.899*12/27/2023 08/01/2024 Back pain affecting in second trimest*01/13/2024 05/14/2024 Nausea/vomiting in [O21.9] 01/14/2024 05/14/2024 Nephrolithiasis [N20.0] 01/18/2024 Dehydration [E86.0] 01/18/2024 Acute right-sided low back pain without sciatic*04/12/2024 08/01/2024 Abdominal pain during in second trime*04/12/2024 05/14/2024 28 weeks gestation of [Z3A.28] 04/19/2024 05/14/2024 Elevated BP without diagnosis of hypertension [*05/14/2024 08/01/2024 Gestational hypertension without significant pr*05/16/2024 08/01/2024 Persistent headaches [R51.9] 05/31/2024 Anemia complicating , third trimester *05/31/2024 08/01/2024 Hypokalemia [E87.6] 05/31/2024 Encounter Status:Closed by ALIDA WAN on 04/29/25 Normal [facility] CBC W Auto Differential pane l (Bld)on 03-31-2025 Basophils (Bld) [#/Vol] 10*3/uL Normal <0.11 [facility] Comment on above: Order Comment: Speci men Type: BLOOD SPECIMEN Ordering Facility: Judy Stoner MD Address: [facility] [place] [address] Performed By: #### 2 4323-8, 69633-3, 3016-3 #### [facility] CLIA [id number] [address] [place] [address] [place] Basophils/100 WBC (Bld) 0.4 % Normal [facility] Comment on above: Order Comment: Speci men Type: BLOOD SPECIMEN Ordering Facility: Judy Stoner MD Address: [facility] [address] [place], [place] [address] Performed By: #### 2 4323-8, 77908-9, 6-3 #### [facility] CLIA [id number] [address] [address] [place] Differential cell count method Nom (Bld) Auto Normal [facility] Comment on above: Order Comment: Speci men Type: BLOOD SPECIMEN Ordering Facility: Judy Stoner MD Address: [facility] [place] [address] Performed By: #### 2 4323-8, 64059-8, 3016-3 #### [facility] CLIA [id number] [address] [place] [address] [place] Eosinophils (Bld) [#/Vol] 0.09 10*3/uL Normal <0.46 [facility] Comment on above: Order Comment: Speci men Type: BLOOD SPECIMEN Ordering Facility: Judy Stoner MD Address: [facility] [place] [address] Performed By: #### 2 4323-8, 70317-4, 3 #### [facility] CLIA [id number] [address] [address] [place] Eosinophils/100 WBC (Bld) 1.6 % Normal [facility] Comment on above: Order Comment: Speci men Type: BLOOD SPECIMEN Ordering Facility: Judy Stoner MD Address: [facility] [place] [address] Performed By: #### 2 4323-8, 87829-7, 3 #### [facility] CLIA [id number] [address] [address] [place] Erythrocyte distribution width (RBC) [Ratio] 12.3 % Normal 11.5-15.0 [facility] Comment on above: Order Comment: Speci men Type: BLOOD SPECIMEN Ordering Facility: Judy Stoner MD Address: [facility] [place] [address] Performed By: #### 2 4323-8, 49091-2, 3 #### [facility] CLIA [id number] [address] [place] [address] [place] Hematocrit (Bld) [Volume fraction] 35.9 % Low 36.0-46.0 [facility] Comment on above: Order Comment: Speci men Type: BLOOD SPECIMEN Ordering Facility: Judy Stoner MD Address: [facility] [place] [address] Performed By: #### 2 4323-8, 97304-4, 3 #### [facility] CLIA [id number] [address] [place] [address] [place] Hemoglobin (Bld) [Mass/Vol] 12.3 g/dL Normal 11.5-15.5 [facility] Comment on above: Order Comment: Speci men Type: BLOOD SPECIMEN Ordering Facility: Judy Stoner MD Address: [facility] [place] [address] Performed By: #### 2 4323-8, 96714-6, 3016-3 #### [facility] CLIA [id number] [address] [address] [place] Immature granulocytes (Bld) [#/Vol] 10*3/uL Normal <0.10 [facility] Comment on above: Order Comment: Speci men Type: BLOOD SPECIMEN Ordering Facility: Judy Stoner MD Address: [facility] [place] [address] Performed By: #### 2 4323-8, 11767-9, 6-3 #### [facility] CLIA [id number] [address] [place] [address] [place] Immature granulocytes/100 WBC (Bld) 0.2 % Normal [facility] Comment on above: Order Comment: Speci men Type: BLOOD SPECIMEN Ordering Facility: Judy Stoner MD Address: [facility] [place] [address] Performed By: #### 2 4323-8, 74746-1, 6-3 #### [facility] CLIA [id number] [address] [place] [address] [place] Lymphocytes (Bld) [#/Vol] 2.06 10*3/uL Normal 1.00-4.00 [facility] Comment on above: Order Comment: Speci men Type: BLOOD SPECIMEN Ordering Facility: Judy Stoner MD Address: [facility] [place] [address] Performed By: #### 2 4323-8, 96339-5, 3016-3 #### [facility] CLIA [id number] [address] [place] [address] [place] Lymphocytes/100 WBC (Bld) 37.3 % Normal [facility] Comment on above: Order Comment: Speci men Type: BLOOD SPECIMEN Ordering Facility: Judy Stoner MD Address: [facility] [place] [address] Performed By: #### 2 4323-8, 69480-4, 6-3 #### [facility] CLIA [id number] [address] [place] [address] [place] MCH (RBC) [Entitic mass] 31.1 pg Normal 26.0-34.0 [facility] Comment on above: Order Comment: Speci men Type: BLOOD SPECIMEN Ordering Facility: Judy Stoner MD Address: [facility] [place] [address] Performed By: #### 2 4323-8, 01183-5, 3 #### [facility] CLIA [id number] [address] [place] [address] [place] MCHC (RBC) [Mass/Vol] 34.3 g/dL Normal 30.5-36.0 [facility] Comment on above: Order Comment: Speci men Type: BLOOD SPECIMEN Ordering Facility: Judy Stoner MD Address: [facility] [place] [address] Performed By: #### 2 4323-8, 82276-9, 3015-3 #### [facility] CLIA [id number] [address] [place] [address] [place] MCV (RBC) [Entitic vol] 90.9 fL Normal 80.0-100.0 [facility] Comment on above: Order Comment: Speci men Type: BLOOD SPECIMEN Ordering Facility: Judy Stoner MD Address: [facility] [place] [address] Performed By: #### 2 4323-8, 68231-8, 3015-3 #### [facility] CLIA [id number] [address] [place] [address] [place] Monocytes (Bld) [#/Vol] 0.51 10*3/uL Normal <0.87 [facility] Comment on above: Order Comment: Speci men Type: BLOOD SPECIMEN Ordering Facility: Judy Stoner MD Address: [facility] [place] [address] Performed By: #### 2 4323-8, 08604-8, 3016-3 #### [facility] CLIA [id number] [address] [place] [address] [place] Monocytes/100 WBC (Bld) 9.2 % Normal [facility] Comment on above: Order Comment: Speci men Type: BLOOD SPECIMEN Ordering Facility: Judy Stoner MD Address: [facility] [place] [address] Performed By: #### 2 4323-8, 21517-1, 6-3 #### [facility] CLIA [id number] [address] [place] [address] [place] Neutrophils (Bld) [#/Vol] 2.84 10*3/uL Normal 1.45-7.50 [facility] Comment on above: Order Comment: Speci men Type: BLOOD SPECIMEN Ordering Facility: Judy Stoner MD Address: [address] [place], [place] [address] [address] Performed By: #### 2 4323-8, 28840-2, 3015-3 #### [facility] CLIA [id number] [address] [place] [address], [place] [address] [place] Neutrophils/100 WBC (Bld) 51.3 % Normal [facility] Comment on above: Order Comment: Speci men Type: BLOOD SPECIMEN Ordering Facility: Judy Stoner MD Address: [facility] [place] [address] Performed By: #### 2 4323-8, 12306-1, 6-3 #### [facility] CLIA [id number] [address] [place] [address] [place] Nucleated RBC (Bld) [#/Vol] 10*3/uL Normal <0.01 [facility] Comment on above: Order Comment: Speci men Type: BLOOD SPECIMEN Ordering Facility: Judy Stoner MD Address: [facility] [place] [address] Performed By: #### 2 4323-8, 40673-2, 3016-3 #### [facility] CLIA [id number] [address] [place] [address] [place] Nucleated RBC/100 WBC (Bld) [Ratio] 0.0 /100 WBC Normal [facility] Comment on above: Order Comment: Speci men Type: BLOOD SPECIMEN Ordering Facility: Judy Stoner MD Address: [facility] [place] [address] Performed By: #### 2 4323-8, 15822-1, 3015-3 #### [facility] CLIA [id number] [address] [place], [place] [id number] [place] Platelet mean volume (Bld) [Entitic vol] 12.0 fL Normal 9.0-12.7 [facility] Comment on above: Order Comment: Speci men Type: BLOOD SPECIMEN Ordering Facility: Judy Stoner MD Address: [facility] [place] [address] Performed By: #### 2 4323-8, 69128-6, 3015-3 #### [facility] CLIA [id number] [address] [place] [address] [place] Platelets (Bld) [#/Vol] 206 10*3/uL Normal 150-400 [facility] Comment on above: Order Comment: Speci men Type: BLOOD SPECIMEN Ordering Facility: Judy Stoner MD Address: [facility] [place] [address] Performed By: #### 2 4323-8, 12980-9, 3016-3 #### [facility] CLIA [id number] [address] [place] [place] [address] [place] RBC (Bld) [#/Vol] 3.95 10*6/uL Normal 3.90-5.20 [facility] Comment on above: Order Comment: Speci men Type: BLOOD SPECIMEN Ordering Facility: Judy Stoner MD Address: [address], [place] [address] Performed By: #### 2 4323-8, 63950-2, 3016-3 #### [facility] CLIA [id number] [address] [place] [address] [place] WBC (Bld) [#/Vol] 5.53 10*3/uL Normal 3.70-11.00 [facility] Comment on above: Order Comment: Speci men Type: BLOOD SPECIMEN Ordering Facility: Judy Stoner MD Address: [address], [place] [address] Performed By: #### 2 4323-8, 56826-0, 6-3 #### [facility] CLIA [id number] [address] [place] [address] [place] Comprehensive metabolic 2000 panelon 03-31-2025 Albumin [Mass/Vol] 4.0 g/dL Normal 3.9-4.9 [facility] Comment on above: Order Comment: Speci men Type: BLOOD SPECIMEN Ordering Facility: Judy Stoner MD Address: [address], [place] [address] Performed By: #### 2 4323-8, 59932-0, 6-3 #### [facility] CLIA [id number] [address] [place] [address] [place] ALP [Catalytic activity/Vol] 83 U/L Normal 34-123 [facility] Comment on above: Order Comment: Speci men Type: BLOOD SPECIMEN Ordering Facility: Judy Stoner MD Address: [address], [place] [address] Performed By: #### 2 4323-8, 93347-9, 6-3 #### [facility] CLIA [id number] [address] [address] [place] ALT [Catalytic activity/Vol] 10 U/L Normal 7-38 [facility] Comment on above: Order Comment: Speci men Type: BLOOD SPECIMEN Ordering Facility: Judy Stoner MD Address: [facility] [place] [address] Performed By: #### 2 4323-8, 46974-1, 3016-3 #### [facility] CLIA [id number] [address] [address] [place] Anion gap [Moles/Vol] 10 mmol/L Normal 8-15 [facility] Comment on above: Order Comment: Speci men Type: BLOOD SPECIMEN Ordering Facility: Judy Stoner MD Address: [address] [place] [address], [place] [address] Performed By: #### 2 4323-8, 78888-0, 6-3 #### [facility] CLIA [id number] [address] [place] [address] [place] AST [Catalytic activity/Vol] 15 U/L Normal 13-35 [facility] Comment on above: Order Comment: Speci men Type: BLOOD SPECIMEN Ordering Facility: Judy Stoner MD Address: [address] [place], [place] [address] [address] Performed By: #### 2 4323-8, 75236-7, 3016-3 #### [facility] CLIA [id number] [address] [address] [place] Bilirubin [Mass/Vol] 0.4 mg/dL Normal 0.2-1.3 [facility] Comment on above: Order Comment: Speci men Type: BLOOD SPECIMEN Ordering Facility: Judy Stoner MD Address: [facility] [place] [address] Performed By: #### 2 4323-8, 37543-1, 3016-3 #### [facility] CLIA [id number] [address] [address] [place] Calcium [Mass/Vol] 9.0 mg/dL Normal 8.5-10.2 [facility] Comment on above: Order Comment: Speci men Type: BLOOD SPECIMEN Ordering Facility: Judy Stoner MD Address: [facility], [place] [address] Performed By: #### 2 4323-8, 00377-4, 3016-3 #### [facility] CLIA [id number] [address] [place] [address] [place] Chloride [Moles/Vol] 105 mmol/L Normal 98-107 [facility] Comment on above: Order Comment: Speci men Type: BLOOD SPECIMEN Ordering Facility: Judy Stoner MD Address: [facility] [place] [address] Performed By: #### 2 4323-8, 21458-6, 6-3 #### [facility] CLIA [id number] [address] [place] [address] [place] CO2 [Moles/Vol] 22 mmol/L Normal 22-30 [facility] Comment on above: Order Comment: Speci men Type: BLOOD SPECIMEN Ordering Facility: Judy Stoner MD Address: [facility] [place] [address] Performed By: #### 2 4323-8, 32015-4, 6-3 #### [facility] CLIA [id number] [address] [place] [address] [place] Creatinine [Mass/Vol] 0.80 mg/dL Normal 0.58-0.96 [facility] Comment on above: Order Comment: Speci men Type: BLOOD SPECIMEN Ordering Facility: Judy Stoner MD Address: [facility] [address], [place] [address] Performed By: #### 2 4323-8, 22613-8, 6-3 #### [facility] CLIA [id number] [address] [place], [place] [address] [facility] [place] Creatinine and Glomerular filtration rate.predicted panel (S/P/Bld) 104 mL/min/1.73m??? Normal >=60 [facility] Comment on above: Order Comment: Suyapa anna Type: BLOOD SPECIMEN Ordering Facility: Judy Stoner MD Address: [facility] [place] [address] Result Comment: Chi mated Glomerular Filtration Rate (eGFR) is calculated using the 2020 CKD-EPI creatinine equation. This equation utilizes serum creatinine, sex, and age as parameters. The creatinine assay has traceable calibration to isotope dilution-mass spectrometry. Refer to KDIGO guidelines for clinical interpretation. In patients with unstable renal function, e.g. those with acute kidney injury, the eGFR may not accurately reflect actual GFR. Performed By: #### 2 4323-8, 48757-6, 3016-3 #### [facility] CLIA [id number] [address] [place], [place] [address] [place] Glucose [Mass/Vol] 87 mg/dL Normal 74-99 [facility] Comment on above: Order Comment: Suyapa anna Type: BLOOD SPECIMEN Ordering Facility: Judy Stoner MD Address: [facility] [address], [place] [address] Result Comment: The [place] Diabetes Association (ADA) provides guidance for cutoff values for fasting glucose and random glucose. The ADA defines fasting as no caloric intake for at least 8 hours. Fasting plasma glucose results between 100 to 125 mg/dL indicate increased risk for diabetes (prediabetes). Fasting plasma glucose results greater than or equal to 126 mg/dL meet the criteria for diagnosis of diabetes. In the absence of unequivocal hyperglycemia, results should be confirmed by repeat testing. In a patient with classic symptoms of hyperglycemia or hyperglycemic crisis, random plasma glucose results greater than or equal to 200 mg/dL meet the criteria for diagnosis of diabetes. Reference: Standards of Medical Care in Diabetes 2016, [place] Diabetes Association. Diabetes Care. 2016.39(Suppl 1). Performed By: #### 2 4323-8, 61943-2, 3016-3 #### [facility] CLIA [id number] [address] [address] [place] Potassium [Moles/Vol] 4.0 mmol/L Normal 3.7-5.1 [facility] Comment on above: Order Comment: Speci men Type: BLOOD SPECIMEN Ordering Facility: Judy Stoner MD Address: [facility] [address] , [place] [address] Performed By: #### 2 4323-8, 27019-0, 6-3 #### [facility] CLIA [id number] [address] [place] [address] [place] Protein [Mass/Vol] 6.3 g/dL Normal 6.3-8.0 [facility] Comment on above: Order Comment: Speci men Type: BLOOD SPECIMEN Ordering Facility: Judy Stoner MD Address: [facility] [address] , [place] [address] Performed By: #### 2 4323-8, 14658-6, 3015-3 #### [facility] CLIA [id number] [address] [place] [address] [place] Sodium [Moles/Vol] 137 mmol/L Normal 136-144 [facility] Comment on above: Order Comment: Speci men Type: BLOOD SPECIMEN Ordering Facility: Judy Stoner MD Address: [facility] [address] , [place] [address] Performed By: #### 2 4323-8, 51384-6, 3015-3 #### [facility] CLIA [id number] [address] [place] [address] [place] Urea nitrogen [Mass/Vol] 14 mg/dL Normal 7-21 [facility] Comment on above: Order Comment: Speci men Type: BLOOD SPECIMEN Ordering Facility: Judy Stoner MD Address: [facility] [address], [place] [address] Performed By: #### 2 4323-8, 29355-3, 3015-3 #### [facility] CLIA [id number] [address] [address] [facility] [place] Lipid 1996 panelon 5 Cholesterol [Mass/Vol] 120 mg/dL Normal <200 [facility] Comment on above: Order Comment: Scotti men Type: BLOOD SPECIMEN Ordering Facility: Judy Stoner MD Address: [facility] [address], [place] [address] Result Comment: <200 mg/dL, Desirable 200-239 mg/dL, Borderline high >239 mg/dL, High Performed By: #### 2 4323-8, 37778-8, 3015-3 #### [facility] CLIA [id number] [address] [address] [facility] [place] Cholesterol in HDL [Mass/Vol] 45 mg/dL Normal >39 [facility] Comment on above: Order Comment: Suyapa anna Type: BLOOD SPECIMEN Ordering Facility: Judy Stoner MD Address: [facility] [address], [place] [address] Result Comment: 40-5 9 mg/dL, Acceptable >59 mg/dL, High: Negative risk factor for coronary heart disease <40 mg/dL, Low: Positive risk factor for coronary heart disease Performed By: #### 2 4323-8, 15561-2, 3015-3 #### [facility] CLIA [id number] [address] [address] [facility] Cholesterol in LDL [Mass/Vol] 60 mg/dL Normal <100 [facility] Comment on above: Order Comment: Speci men Type: BLOOD SPECIMEN Ordering Facility: Judy Stoner MD Address: [facility] [address], [place] [address] Result Comment: <100 mg/dL, Optimal 100-129 mg/dL, Near optimal/above optimal 130-159 mg/dL, Borderline high 160-189 mg/dL, High >189 mg/dL, Very high Secondary prevention optimal LDL Cholesterol levels are recommended to be <70 mg/dL LDL cholesterol is calculated using the Santa-NIH equation. Performed By: #### 2 4323-8, 44250-0, 3015-3 #### [facility] CLIA [id number] [address] [address] [place] Cholesterol in LDL/Cholesterol in HDL [Mass ratio] 1.33 {ratio} Normal <2.54 [facility] Comment on above: Order Comment: Suyapa anna Type: BLOOD SPECIMEN Ordering Facility: Judy Stoner MD Address: [facility] [address], [place] [address] Result Comment: Refe edwince: 1. National Cholesterol Education Program ATP III Guideline At-A-Glance Quick Desk Reference: National Heart, Lung, and Blood [place]. National Institutes of Health. 2001: NIH Publication No. 01-3305. 2. An International Atherosclerosis Society position paper: global recommendations for the management of dyslipidemia: executive summary, Atherosclerosis. 2014: 232(2):410-413. Performed By: #### 2 4323-8, 87222-8, 3016-3 #### [facility] CLIA [id number] [facility] [address] [address] [place] Cholesterol in VLDL [Mass/Vol] 11 mg/dL Normal <30 [facility] Comment on above: Order Comment: Suyapa anna Type: BLOOD SPECIMEN Ordering Facility: Judy Stoner MD Address: [facility] [address], [place] [address] Performed By: #### 2 4323-8, 64976-9, 3016-3 #### [facility] CLIA [id number] [facility] [address] [address] [place] Cholesterol non HDL [Mass/Vol] 75 mg/dL Normal <130 [facility] Comment on above: Order Comment: Suyapa anna Type: BLOOD SPECIMEN Ordering Facility: Judy Stoner MD Address: [facility] [address], [place] [address] Result Comment: <130 mg/dL, Optimal 130-159 mg/dL, Near optimal/above optimal 160-189 mg/dL, Borderline high 190-219 mg/dL, High >219 mg/dL, Very high Secondary prevention optimal non HDL Cholesterol levels are recommended to be <100 mg/dL Performed By: #### 2 4323-8, 63995-5, 6-3 #### [facility] CLIA [id number] [address] [address] [facility] [place] Cholesterol.total/Cho lesterol in HDL [Mass ratio] 2.67 {ratio} Normal <5.10 [facility] Comment on above: Order Comment: Speci men Type: BLOOD SPECIMEN Ordering Facility: Judy Stoner MD Address: [facility] [address], [place] [address] Performed By: #### 2 4323-8, 32091-1, 6-3 #### [facility] CLIA [id number] [address] [place] [address] [place] FASTING TIME 12 hrs Normal [facility] Comment on above: Order Comment: Speci men Type: BLOOD SPECIMEN Ordering Facility: Judy Stoner MD Address: [facility] [address], [place] [address] Performed By: #### 2 4323-8, 00309-3, 3015-3 #### [facility] CLIA [id number] [address] [place] [place] [address] [facility] [place] Triglyceride [Mass/Vol] 73 mg/dL Normal <150 [facility] Comment on above: Order Comment: Speci men Type: BLOOD SPECIMEN Ordering Facility: Judy Stoner MD Address: [facility] [address], [place] [address] Result Comment: <150 mg/dL, Normal 150-199 mg/dL, Borderline high 200-499 mg/dL, High >499 mg/dL, Very high Performed By: #### 2 4323-8, 64165-9, 6-3 #### [facility] CLIA [id number] [address] [place] [address] [place] TSH SerPl-aCncon 03-31-2025 TSH Qn 3.600 m[IU]/L Normal 0.270-4.200 [facility] Comment on above: Order Comment: Speci men Type: BLOOD SPECIMEN Ordering Facility: Judy Stoner MD Address: [address] , [place] [address] Result Comment: If t he patient is , TSH reference range varies by gestational period: First Trimester (weeks 9-12): 0.180-2.990 mIU/L Second Trimester: 0.110-3.980 mIU/L Third Trimester: 0.480-4.710 mIU/L Josue Coleman et al. A Practical Approach for the Verifications and Determination of Site- and Trimester-Specific Reference Intervals for Thyroid Function tests in . Thyroid, 2019:29:3:412-420. Raúl Eldridge, et al. 2017 Guidelines of the [place] Thyroid Association for the Diagnosis and Management of Thyroid Disease during and the . Thyroid, 2017:27:3:315-389. Performed By: #### 2 4323-8, 81597-6, 3016-3 #### [facility] CLIA [id number] [address] [place] [address] [facility] CNOVon 03-26-2025 CNOV Office Visit (OBGYWM ) -------- KWADWO RODRIGUES ([id number]) 2000 [facility] Date Time Provider Department 03/26/25 2:00 PM NATASHA HAQUE During your visit today, we recorded the following information about you: Blood pressure Weight 120/86 74.8 kg Natasha Haque APRN.CHILDREN'[employer] MINISTER 03/26/2025 2:56 PM Signed Kwadwo presents for removal of IUD due to weight gain. UNIVERSAL PROTOCOL / SAFETY CHECKLIST Procedure to be Performed: Intrauterine device removal - Mirena Sign In: A Moment of CARE was completed. Appropriate PPE (Personal Protective Equipment) worn by all providers involved with the procedure. Special equipment utilized ring forceps. Patient/Surrogate Stated/Verified: Patient name, Date of , Relevant allergies, and The intended procedure Time Out: Relevant labs, photos, and/or imaging studies are not applicable. Intended patient and procedure match the source document(s) (e.g. consent, HANDP, associated studies [imaging, pathology]) match the intended patient and procedure. Consent obtained and matches the intended procedure. Yes. Correct side/site is not applicable. Medications required for this procedure are verified. are not applicable. Fire risk assessed and is not applicable. Implants: are not applicable. Sign Out: Specimens not collected. All instruments, equipment, possible retained foreign bodies are accounted for. Yes. The post-procedure plan of care has been communicated to the patient or surrogate. PROCEDURE: Speculum placed in vagina, IUD string visualized and grasped with ring forceps. ASSESSMENT/PLAN: 1. Encounter for IUD removal - ICD9: V25.12, ICD10: Z30.432 (primary diagnosis) IUD removed without difficulty, intact, and patient tolerated procedure well. Contraception plans: oral contraceptives - REMOVE INTRAUTERINE DEVICE 2. Encounter for repeat prescription of oral contraceptives - ICD9: V25.01, ICD10: Z30.41 - discussed with patient on how to take OCP's. Given written information. - counseled on benefits, risks and possible severe side effects of OCP's. - discussed need to use Condoms to help to prevent STD's including HIV etc. - CHANDLER FE 11/18 (28) 1 MG-20 MCG (21)/75 MG (7) TABLET Follow-up at annual exam and with any concerns Natasha Haque APRN.OXANA Haque APRN.Natasha Floyd APRN.CNP 03/26/2025 2:36 PM Addendum - Eat primarily whole foods. Limit carbs, especially processed carbs. Eat - Meat, vegetables and fruits with skin on if possible, eggs, cheese. - Do not drink your calories - 30 grams of protein for your first meal of the day decreases your hunger during the day by up to 40 %. Options include: Premier Protein or generic 30 gm protein 1 gm sugar or 5 eggs or 2-3 eggs and some unbreaded meat and/or cheese. No fruit, vegetables, bread, grain, yogurt, Smoothies, etc. - Walk for 15 minutes immediately after meal Oral Contraceptives: The Combined (Estrogen + Progestin) Pill Beginning the Combined Pill In most packs, the first 21 pills have active ingredients and the last 7 are non-medicine containing pills (placebo) or they may contain iron. There will be bleeding during the week you are taking the placebo pills. There are also packs that contain 24 active medication pills and only 4 placebo pills. These are formulated to give you a shorter period. There are 2 ways to start the pill: Quick Start: Take your first pill as soon as you get the pack. Next period: Take your first pill soon after your next period begins. If you take your first pill up to 5 days after the start of your period, you are protected against right away. If you take your first pill more than 5 days after the start of your period, you should use condoms as back-up for the first 7 days. How Combined Hormonal Contraceptives Work Combined oral contraceptive ( control) pills contain hormones like the ones your body makes (estrogen + a progestin). These hormones stop your ovaries from releasing eggs (ovulating). If your ovary does not release an egg, you cannot get . It is important to remember that no method of control is 100% effective. The combined pill is 93% effective with typical use (how real people use it in real life compared to how people used it in medical studies). There are several advantages associated with the pill: it is highly effective with typical use, is easy to start and stop, may improve acne, will make periods more regular and less painful, may help improve anemia, and long-term use is associated with a reduced risk of ovarian and uterine cancer. Possible Side Effects It can take up to three months for your body to become adjusted to the combined pill. The more common side effects experienced now are breakthrough (unexpected) spotting or bleeding; nausea or vomiting; breast tenderness; and mild fluid reten (more content not included)... Normal [facility] Liana 03-19-2025 MICHELE Telephone (OBGYWM) -------- KWADWO RODRIGUES ([id number]) 2000 [facility] Date Time Provider Department 03/19/25 NATASHA HAQUE During your visit today, we recorded the following information about you: Cyndi Garcia RN 03/19/2025 2:42 PM Signed Patient has appointment to discuss control next week and possibly wants to have her IUD removed. Please file pended order to be linked to upcoming appointment. GIL Dan Jennifer, RN 03/19/2025 4:56 PM Signed Order linked to visit. GIL Jaime Lindsey, RN 03/19/2025 4:57 PM Signed Order linked to upcoming appointment. Cyndi Garcia RN Allergies As of Date: 03/19/2025 Noted Allergy Reaction LEVETIRACETAM 12/09/2020 4 - Hives 7 - Swelling SHELLFISH 03/27/2010 4 - Hives SUMATRIPTAN 05/16/2024 14 - Other: See Comments Comments: Chest tightness and dizziness. Date Reviewed: 11/18/2024 Reviewed by: Quentin Be MD - Fully Assessed Reason for Visit: Orders [681] Primary Visit Diagnosis:Encounter for IUD removal [Z30.432] Order(s):REMOVE INTRAUTERINE DEVICE [[id number]] Order #: [id number] Prescriptions as of 03/19/2025 - docusate sodium (COLACE ORAL) Take by mouth. - levonorgestrel (MIRENA) 21 mcg/24hr (up to 8 yrs) 52 mg IUD 1 Each by INTRAUTERINE route as directed. - acetaminophen (TYLENOL 8 HOUR ORAL) Take by mouth. - 25/iron fum/folic/dha (-1 ORAL) Take by mouth once daily. Problem List As Of Date 03/19/2025 Noted Resolved Asthma, mild intermittent [J45.20] 11/22/2007 Patellar tendinitis of right knee [M76.51] 01/20/2014 11/27/2023 Left lateral knee pain [M25.562] 01/20/2014 11/27/2023 Supervision of high risk in third tri*11/27/2023 08/01/2024 Hx of migraines [Z86.69] 11/27/2023 Occasional tremors [R25.1] 11/27/2023 Genetic screening [Z13.79] 12/04/2023 12/26/2023 Rh negative state in antepartum period [O26.899*12/27/2023 08/01/2024 Back pain affecting in second trimest*01/13/2024 05/14/2024 Nausea/vomiting in [O21.9] 01/14/2024 05/14/2024 Nephrolithiasis [N20.0] 01/18/2024 Dehydration [E86.0] 01/18/2024 Acute right-sided low back pain without sciatic*04/12/2024 08/01/2024 Abdominal pain during in second trime*04/12/2024 05/14/2024 28 weeks gestation of [Z3A.28] 04/19/2024 05/14/2024 Elevated BP without diagnosis of hypertension [*05/14/2024 08/01/2024 Gestational hypertension without significant pr*05/16/2024 08/01/2024 Persistent headaches [R51.9] 05/31/2024 Anemia complicating , third trimester *05/31/2024 08/01/2024 Hypokalemia [E87.6] 05/31/2024 Encounter Status:Closed by CYNDI GARCIA on 03/19/25 Normal [facility] XR CHEST 2V FRONTAL/LATon XR CHEST 2V FRONTAL/LAT * * *Final Report* * * DATE OF EXAM: Feb 25 2025 11:25AM WOX [id number] - XR CHEST 2V FRONTAL/LAT / PROCEDURE REASON: J45.998 * * * * Physician Interpretation * * * * EXAMINATION: CHEST RADIOGRAPH (2 VIEW FRONTAL and LATERAL) CLINICAL HISTORY: Acute cough MQ: [id number]_6 EXAM DATE/TIME: 02/25/2025 11:25 AM COMPARISON: Chest x-ray of 12/29/2022. RESULT: Lines, tubes, and devices: None. Lungs and pleura: No consolidation. No lung mass. No pleural effusion. No pneumothorax. Cardiomediastinal silhouette: Normal cardiomediastinal silhouette. Bones and soft tissues: Unremarkable. IMPRESSION: No acute radiographic abnormality. Hydraulic Plumber: SANDY Transcribe Date/Time: Feb 25 2025 11:28A Dictated by : TAVARES WHITE MD This examination was interpreted and the report reviewed and electronically signed by: TAVARES WHITE MD on Feb 25 2025 11:29AM EST [id number] Normal [facility] XR Chest PA and Lateralon IMPRESSION: No acute radiographic abnormality. Hydraulic Plumber: [facility] Transcribe Date/Time: Feb 25 2025 11:28A Dictated by : TAVARES WHITE MD This examination was interpreted and the report reviewed and electronically signed by: TAVARES WHITE MD on Feb 25 2025 11:29AM EST DIVISION OF RADIOLOGY * * *Final Report* * * DATE OF EXAM: Feb 25 2025 11:25AM WOX [id number] - XR CHEST 2V FRONTAL/LAT / PROCEDURE REASON: J45.998 * * * * Physician Interpretation * * * * EXAMINATION: CHEST RADIOGRAPH (2 VIEW FRONTAL & LATERAL) CLINICAL HISTORY: Acute cough MQ: XC2_6 EXAM DATE/TIME: 02/25/2025 11:25 AM COMPARISON: Chest x-ray of 12/29/2022. RESULT: Lines, tubes, and devices: None. Lungs and pleura: No consolidation. No lung mass. No pleural effusion. No pneumothorax. Cardiomediastinal silhouette: Normal cardiomediastinal silhouette. Bones and soft tissues: Unremarkable. DIVISION OF RADIOLOGY Provider, [facility] - 02/25/2025 * * *Final Report* * * DATE OF EXAM: Feb 25 2025 11:25AM WOX [id number] - XR CHEST 2V FRONTAL/LAT / PROCEDURE REASON: J45.998 * * * * Physician Interpretation * * * * EXAMINATION: CHEST RADIOGRAPH (2 VIEW FRONTAL & LATERAL) CLINICAL HISTORY: Acute cough MQ: XC2_6 EXAM DATE/TIME: 02/25/2025 11:25 AM COMPARISON: Chest x-ray of 12/29/2022. RESULT: Lines, tubes, and devices: None. Lungs and pleura: No consolidation. No lung mass. No pleural effusion. No pneumothorax. Cardiomediastinal silhouette: Normal cardiomediastinal silhouette. Bones and soft tissues: Unremarkable. IMPRESSION IMPRESSION: No acute radiographic abnormality. Hydraulic Plumber: PSCB Transcribe Date/Time: Feb 25 2025 11:28A Dictated by : TAVARES WHITE MD This examination was interpreted and the report reviewed and electronically signed by: TAVARES WHITE MD on Feb 25 2025 11:29AM EST [facility] Radiology Study observation (narrative) [facility] XR Chest PA and LateralOrder ed By: [facility] Provider on 02-25-2025 [facility] COLONOSCOPYon 02-07-2025 Colonoscopy Table formatting fro m the original result was not included. Impression Anal fissure Small hemorrhoids There was thick, semi-solid stool coating the rectum and rectosigmoid colon. Procedure aborted. Findings Anterior anal fissure observed during perianal exam; no bleeding was observed External small hemorrhoids observed during perianal exam; no bleeding was observed There was thick, semi-solid stool coating the rectum and rectosigmoid colon. Procedure aborted. Recommendation Follow up with PCP Schedule repeat colonoscopy, due: 05/08/2025 Inadequate bowel preparation Keep appointment with Cata Rodriguez in GI clinic Post-op Diagnosis Diagnosis ICD Code Anal fissure K60.2 Indication Blood in stool, Rectal pain Staff Staff Role Adal Fields MD Proceduralist Medications See Anesthesia Record. Preprocedure A history and physical has been performed, and patient medication allergies have been reviewed. The patient's tolerance of previous anesthesia has been reviewed. The risks and benefits of the procedure and the sedation options and risks were discussed with the patient. All questions were answered and informed consent obtained. Details of the Procedure The patient underwent monitored anesthesia care, which was administered by an anesthesia professional. The patient's blood pressure, ECG, ETCO2, heart rate, level of consciousness, oxygen and respirations were monitored throughout the procedure. A digital rectal exam was performed. The scope was introduced through the anus and advanced to the rectum. The quality of bowel preparation was evaluated using the [place] Bowel Preparation Scale with scores of: right colon = 0, transverse colon = 0, left colon = 0. The total BBPS score was 0. Bowel prep was not adequate. The patient experienced no blood loss. The procedure was not difficult. The patient tolerated the procedure well. There were no apparent adverse events. Events Procedure Events Event Event Time ENDO SCOPE IN TIME 02/07/2025 8:07 AM ENDO SCOPE OUT TIME 02/07/2025 8:09 AM Specimens No specimens collected Procedure Location [facility] External Facility [facility] [address] [facility] [address] Referring Provider Adal Fields MD Procedure Provider Adal Fields MD [facility] Colonoscopy studyon 02-08-20 25 Table formatting fro m the original result was not included. Impression Anal fissure Small hemorrhoids There was thick, semi-solid stool coating the rectum and rectosigmoid colon. Procedure aborted. Findings Anterior anal fissure observed during perianal exam; no bleeding was observed External small hemorrhoids observed during perianal exam; no bleeding was observed There was thick, semi-solid stool coating the rectum and rectosigmoid colon. Procedure aborted. Recommendation Follow up with PCP Schedule repeat colonoscopy, due: 05/08/2025 Inadequate bowel preparation Keep appointment with Cata Rodriguez in GI clinic Post-op Diagnosis Diagnosis ICD Code Anal fissure K60.2 Indication Blood in stool, Rectal pain Staff Staff Role Adal Fields MD Proceduralist Medications See Anesthesia Record. Preprocedure A history and physical has been performed, and patient medication allergies have been reviewed. The patient's tolerance of previous anesthesia has been reviewed. The risks and benefits of the procedure and the sedation options and risks were discussed with the patient. All questions were answered and informed consent obtained. Details of the Procedure The patient underwent monitored anesthesia care, which was administered by an anesthesia professional. The patient's blood pressure, ECG, ETCO2, heart rate, level of consciousness, oxygen and respirations were monitored throughout the procedure. A digital rectal exam was performed. The scope was introduced through the anus and advanced to the rectum. The quality of bowel preparation was evaluated using the [place] Bowel Preparation Scale with scores of: right colon = 0, transverse colon = 0, left colon = 0. The total BBPS score was 0. Bowel prep was not adequate. The patient experienced no blood loss. The procedure was not difficult. The patient tolerated the procedure well. There were no apparent adverse events. Events Procedure Events Event Event Time ENDO SCOPE IN TIME 02/07/2025 8:07 AM ENDO SCOPE OUT TIME 02/07/2025 8:09 AM Specimens No specimens collected Procedure Location [facility] External Facility [facility] [address] [facility] [address] Referring Provider Adal Fields MD Procedure Provider Adal Fields MD [facility] Work Phone: [facility] Work Phone: Radiology Study observation (narrative) [facility] Work Phone: HCG ( test) Ql (U)O rdered By: Radha Montes De Oca on 02-07-2025 Interpretation and review of laboratory results Normal [facility] Preg Test, Ur Negative Negative [facility] CNPNon 01-14-2025 CNPN Telephone (INTMWS) -------- KWADWO RODRIGUES ([id number]) 2000 [address] [facility] Date Time Provider Department 01/14/25 SNOW CLEARY During your visit today, we recorded the following information about you: Rohini Orlando LPN 01/14/2025 10:39 AM Signed Per Snow KEITH to establish care with her. Allergies As of Date: 01/14/2025 Noted Allergy Reaction LEVETIRACETAM 12/09/2020 4 - Hives 7 - Swelling SHELLFISH 03/27/2010 4 - Hives SUMATRIPTAN 05/16/2024 14 - Other: See Comments Comments: Chest tightness and dizziness. Date Reviewed: 11/18/2024 Reviewed by: Quentin Be MD - Fully Assessed Reason for Visit: Establish Care [42] Prescriptions as of 01/14/2025 - docusate sodium (COLACE ORAL) Take by mouth. - levonorgestrel (MIRENA) 21 mcg/24hr (up to 8 yrs) 52 mg IUD 1 Each by INTRAUTERINE route as directed. - acetaminophen (TYLENOL 8 HOUR ORAL) Take by mouth. - 25/iron fum/folic/dha (-1 ORAL) Take by mouth once daily. Problem List As Of Date 01/14/2025 Noted Resolved Asthma, mild intermittent [J45.20] 11/22/2007 Patellar tendinitis of right knee [M76.51] 01/20/2014 11/27/2023 Left lateral knee pain [M25.562] 01/20/2014 11/27/2023 Supervision of high risk in third tri*11/27/2023 08/01/2024 Hx of migraines [Z86.69] 11/27/2023 Occasional tremors [R25.1] 11/27/2023 Genetic screening [Z13.79] 12/04/2023 12/26/2023 Rh negative state in antepartum period [O26.899*12/27/2023 08/01/2024 Back pain affecting in second trimest*01/13/2024 05/14/2024 Nausea/vomiting in [O21.9] 01/14/2024 05/14/2024 Nephrolithiasis [N20.0] 01/18/2024 Dehydration [E86.0] 01/18/2024 Acute right-sided low back pain without sciatic*04/12/2024 08/01/2024 Abdominal pain during in second trime*04/12/2024 05/14/2024 28 weeks gestation of [Z3A.28] 04/19/2024 05/14/2024 Elevated BP without diagnosis of hypertension [*05/14/2024 08/01/2024 Gestational hypertension without significant pr*05/16/2024 08/01/2024 Persistent headaches [R51.9] 05/31/2024 Anemia complicating , third trimester *05/31/2024 08/01/2024 Hypokalemia [E87.6] 05/31/2024 Encounter Status:Closed by ROHINI ORLANDO on 01/14/25 Normal [facility] Basic Metabolic Profile (BMP )on 12-19-2024 BUN/CRE 16.8 RATIO Normal 08-18 [facility] Comment on above: Performed By: #### L 100.0100, L500.2500 #### [facility] [address] [place], [address] CA,Total 9.5 mg/dL Normal 8.5-10.1 [facility] Comment on above: Performed By: #### L 100.0100, L500.2500 #### [facility] [address] [place], [address] Chloride [Moles/Vol] 109 mmol/L High 98-107 [facility] Comment on above: Performed By: #### L 100.0100, L500.2500 #### [facility] [address] [place], [address] CO2 [Moles/Vol] 27.0 mmol/L Normal 21.0-32.0 [facility] Comment on above: Performed By: #### L 100.0100, L500.2500 #### [facility] [address] [place], [address] Creatinine [Mass/Vol] 0.77 mg/dL Normal 0.55-1.02 [facility] Comment on above: Result Comment: The validity of the calculated GFR GFRAA in patients over 70 years has not been determined. Clinical correlation is essential. Performed By: #### L 100.0100, L500.2500 #### [facility] [address] [place], [address] ECRCL 104.19 ml/min Normal [facility] Comment on above: Performed By: #### L 100.0100, L500.2500 #### [facility] [address] [place], [address] EST GFR - AA 116 mL/min Normal >60 [facility] Comment on above: Result Comment: Afri can [place]ovan GFR Calc Performed By: #### L 100.0100, L500.2500 #### [facility] [address] [place], [address] GAP 4 Low 5-15 [facility] Comment on above: Performed By: #### L 100.0100, L500.2500 #### [facility] [address] [place], [address] GFR/1.73 sq M.predicted among non-blacks MDRD (S/P/Bld) [Vol rate/Area] 96 mL/min/{1.73_m2} Normal >60 [facility] Comment on above: Result Comment: Non- GFR Calc Performed By: #### L 100.0100, L500.2500 #### [facility] [address] [place], [address] Glucose [Mass/Vol] 92 mg/dL Normal 74-106 [facility] Comment on above: Performed By: #### L 100.0100, L500.2500 #### [facility] [address] [place], [address] Potassium [Moles/Vol] 3.6 mmol/L Normal 3.5-5.1 [facility] Comment on above: Performed By: #### L 100.0100, L500.2500 #### [facility] [address] [place], [address] Sodium [Moles/Vol] 140 mmol/L Normal 136-145 [facility] Comment on above: Performed By: #### L 100.0100, L500.2500 #### [facility] [address] [place], [address] Urea nitrogen [Mass/Vol] 13 mg/dL Normal 7-18 [facility] Comment on above: Performed By: #### L 100.0100, L500.2500 #### [facility] [address] [place], [address] CBC W/Diff, Automatedon 02-2 0-2024 Absolute Lymph 2.41 X10 3/uL Normal 0.83-4.51 [facility] Comment on above: Performed By: #### L 100.0100, L500.2500 #### [facility] [address] [place], [address] Absolute Neut 3.3 X10 3/uL Normal 2.0-7.7 [facility] Comment on above: Performed By: #### L 100.0100, L500.2500 #### [facility] [address] [place], [address] Basophils/100 WBC (Bld) 0.3 % Normal 0-1 [facility] Comment on above: Performed By: #### L 100.0100, L500.2500 #### [facility] [address] [place], [address] Eosinophils/100 WBC (Bld) 1.3 % Normal 0-5 [facility] Comment on above: Performed By: #### L 100.0100, L500.2500 #### [facility] [address] [place], [address] Erythrocyte distribution width (RBC) [Ratio] 11.7 % Normal 11.6-14.6 [facility] Comment on above: Performed By: #### L 100.0100, L500.2500 #### [facility] [address] [place], [address] Hematocrit (Bld) [Volume fraction] 36.8 % Low 37-47 [facility] Comment on above: Performed By: #### L 100.0100, L500.2500 #### [facility] [address] [place], [address] Hemoglobin (Bld) [Mass/Vol] 12.8 g/dL Normal 12.0-15.0 [facility] Comment on above: Performed By: #### L 100.0100, L500.2500 #### [facility] [address] [place], [address] IG% 0.300 Normal 0.0-0.9 [facility] Comment on above: Result Comment: IG% - Immature Granulocytes (promyelocytes, myelocytes and metamyelocytes) > 1% indicates that a LEFT SHIFT is Present. Performed By: #### L 100.0100, L500.2500 #### [facility] [address] [place], [address] Lymphocytes/100 WBC (Bld) 37.7 % Normal 19-41 [facility] Comment on above: Performed By: #### L 100.0100, L500.2500 #### [facility] [address] [place], [address] MCH (RBC) [Entitic mass] 31.5 pg Normal 27.0-32.0 [facility] Comment on above: Performed By: #### L 100.0100, L500.2500 #### [facility] [address] [place], [address] MCHC (RBC) [Mass/Vol] 34.8 g/dL Normal 32-36 [facility] Comment on above: Performed By: #### L 100.0100, L500.2500 #### [facility] [address] [place], [address] MCV (RBC) [Entitic vol] 90.6 fL Normal 81-99 [facility] Comment on above: Performed By: #### L 100.0100, L500.2500 #### [facility] [address] [place], [address] Monocytes/100 WBC (Bld) 9.2 % Normal 0-10 [facility] Comment on above: Performed By: #### L 100.0100, L500.2500 #### [facility] [address] [place], [address] Neutrophils/100 WBC (Bld) 51.2 % Normal 47-70 [facility] Comment on above: Performed By: #### L 100.0100, L500.2500 #### [facility] [address] [place], [address] Nucleated RBC (Bld) [#/Vol] 0 10*3/uL Normal 0-5 [facility] Comment on above: Performed By: #### L 100.0100, L500.2500 #### [facility] [address] [place], [address] Platelet mean volume (Bld) [Entitic vol] 11.4 fL Normal 6.2-12.0 [facility] Comment on above: Performed By: #### L 100.0100, L500.2500 #### [facility] [address] [place], [address] Platelets (Bld) [#/Vol] 228 10*3/uL Normal 150-450 [facility] Comment on above: Performed By: #### L 100.0100, L500.2500 #### [facility] [address] [place], [address] RBC (Bld) [#/Vol] 4.06 10*6/uL Low 4.2-5.4 [facility] Comment on above: Performed By: #### L 100.0100, L500.2500 #### [facility] [address] [place], [address] RDW SD 38.8 fl Normal 35.1-43.9 [facility] Comment on above: Performed By: #### L 100.0100, L500.2500 #### [facility] [address] [place], [address] WBC (Bld) [#/Vol] 6.4 10*3/uL Normal 4.4-11.0 [facility] Comment on above: Performed By: #### L 100.0100, L500.2500 #### [facility] [address] [place], [address] Emergency Department Summary on 12-19-2024 Emergency Department Summary [facility] Medical Records Department [address] [place] [address] Emergency Department Summary 12/19/24 MR#: [id number] Acct: [id number] Name: KWADWO RODRIGUES Rep #: [id number] : 2000 From: Jaycob Del Valle DO PCP: Care Physician,No Primary Status:DEP ER Location: ED HPI HPI - GI History of Present Illness Chief Complaint: GI Bleed Informant: patient Abdominal Pain/Flank Pain Onset: Today Context: Gradual Onset Timing: Waxes and wanes Quality: Cramping Location: RLQ and LLQ Worsened by: Nothing Relieved by: Nothing Nausea/Vomiting/Emesis GI Symptom: Positive for Nausea; Negative for Vomiting Diarrhea/Melena/Hematoch ezia GI Symptom: Positive for Hematochezia Stool Quality: Positive for BRB per rectum (And clots) Narrative Narrative: Patient presents with rectal bleeding that became worse tonight. Patient states she had a baby 6 months ago. Patient states that she has been having some rectal bleeding on and off since that time. Patient states she was diagnosed with an anal fissure and internal hemorrhoids. Patient states she had a colonoscopy but states she needs to follow-up with a repeat colonoscopy because there was still a moderate amount of stool in her colon. Patient admits to some mild nausea. Patient states she started having some abdominal cramping over her lower abdomen tonight after a bowel movement. Patient states that her bowel movement was red blood with some clots. Patient denies any lightheadedness or dizziness. PFSH PFSH Medical History Muscle tremor Headache Gestational HTN Asthma Migraine H pylori ulcer Pneumonia Hives UTI (urinary tract infection) Asthma Home Medications ???Medication ???Instructions ???Recorded ???Last Taken ???Type vit no.95-ferrous 1 tab PO DAILY 04/27/24 06/15/24 History fumarate 28 mg-folic acid 800 mcg tablet () acetaminophen 500 mg tablet 1,000 mg (2 x 500 mg) PO Q6H PRN 0 06/19/24 Unknown Rx PRN Pain 1-10 Or Fever #0 tabs ibuprofen 600 mg tablet 600 mg PO Q6H PRN PRN Pain Score 0 06/19/24 Unknown Rx 1-10 #0 tabs albuterol sulfate 90 mcg/actuation 1 puff inhalation BID 12/19/24 U nknown History aerosol inhaler hydrocortisone acetate 25 mg 25 mg ID BID 12/19/24 Unknown Hist ory rectal suppository Allergy/AdvReac Type Severity Reaction Status Date / Time shellfish derived Allergy Severe Hives Verified 12/19/24 21:39 levetiracetam (From Keppra) AdvReac Severe Hives Verified 12/19/24 21:39 sumatriptan (From Imitrex) AdvReac Unknown Other Verified 12/19/24 21:39 Family History Sister Asthma Grandfather Cancer lung Grandmother Diabetes Parkinson disease Alzheimer disease Aunt Diabetes Uncle Diabetes Mother Hypertension Thyroid disorder Father Hypertension Grandfather Kidney disease Surgical History History of surgery [place] teeth extracted H/O knee surgery Social History household members: spouse current occupational status: employed 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[employer] Smoking Status: Never smoker Electronic Cigarette Use: not used second hand exposure: No alcohol intake: current alcohol intake frequency: a few times a month substance use type: does not use what type of physical activity do you participate in: walking frequency: 3-4 times per week do you feel safe at home: Yes ROS ROS ED Constitutional Constitutional ED: Denies chills or fever(s) Eyes Eyes: Denies blurry vision or change in vision ENT ENT ED: Denies rhinorrhea or sore throat Cardiovascular Cardiovascular: Denies chest pain or palpitations Respiratory/Chest Respiratory/Chest: Denies cough or dyspnea Gastrointestinal Gastrointestinal: Reports abdominal pain and nausea; Denies vomiting Genitourinary Genitourinary ED: Denies dysuria or hematuria Musculoskeletal Musculoskeletal: Denies back pain or neck pain Integumentary Denies abscess or rash Neurologic Neurologic: Denies headache(s) or weakness Allergic/Immunologic Allergic/Immunologic ED: Denies mouth swelling or urticaria EXAM Physical Exam Const Vital Signs: 12/19/24 21:37 12/19/24 23:34 12/19/24 23:36 Temperature 97.9 F Temperature Source Temporal Pulse Rate 78 76 Pulse Rate [Lying] 60 Pulse Rate [Sitting (for 1 minute prior to obtaining)] 65 Pulse Rate [Standing (for 1 minute prior to obtaining)] 76 Respiratory Rate 16 18 Blood Pressure 146/90 H 130/96 H Blood Pressure [Lying] 134/109 H Blood Pressure [Sitting (for 1 minute prior to obtaining)] 139/76 H (more content not included)... Normal [facility] COLONOSCOPYon 12-13-2024 Colonoscopy Table formatting fro m the original result was not included. Impression Anal fissure Small hemorrhoids There was a large amount of semi-solid brown stool, precluding visualization. Findings Anterior anal fissure observed during perianal exam; no bleeding was observed External small hemorrhoids observed during perianal exam; no bleeding was observed There was a large amount of semi-solid brown stool, precluding visualization. Recommendation Schedule repeat colonoscopy, due: 03/13/2025 Inadequate bowel preparation Start nifedipine ointment Post-op Diagnosis Diagnosis ICD Code Anal fissure K60.2 Indication Blood in stool, Rectal pain Staff Staff Role Adal Fields MD Proceduralist Medications See Anesthesia Record. Preprocedure A history and physical has been performed, and patient medication allergies have been reviewed. The patient's tolerance of previous anesthesia has been reviewed. The risks and benefits of the procedure and the sedation options and risks were discussed with the patient. All questions were answered and informed consent obtained. Details of the Procedure The patient underwent monitored anesthesia care, which was administered by an anesthesia professional. The patient's blood pressure, ECG, ETCO2, heart rate, level of consciousness, oxygen and respirations were monitored throughout the procedure. A digital rectal exam was performed. The scope was introduced through the anus and advanced to the rectum. The quality of bowel preparation was evaluated using the [place] Bowel Preparation Scale with scores of: right colon = 0, transverse colon = 0, left colon = 0. The total BBPS score was 0. Bowel prep was not adequate. The patient experienced no blood loss. The procedure was not difficult. The patient tolerated the procedure well. There were no apparent adverse events. Events Procedure Events Event Event Time ENDO SCOPE IN TIME 12/13/2024 9:40 AM ENDO SCOPE OUT TIME 12/13/2024 9:42 AM Specimens No specimens collected Procedure Location [facility] External Facility [facility] [address] [facility] [address] Referring Provider SANDEE Calderon Procedure Provider Adal Fields MD [facility] Comment on above: Order Comment: 2 day prep Colonoscopy studyon 12-13-19 25 Table formatting fro m the original result was not included. Impression Anal fissure Small hemorrhoids There was a large amount of semi-solid brown stool, precluding visualization. Findings Anterior anal fissure observed during perianal exam; no bleeding was observed External small hemorrhoids observed during perianal exam; no bleeding was observed There was a large amount of semi-solid brown stool, precluding visualization. Recommendation Schedule repeat colonoscopy, due: 03/13/2025 Inadequate bowel preparation Start nifedipine ointment Post-op Diagnosis Diagnosis ICD Code Anal fissure K60.2 Indication Blood in stool, Rectal pain Staff Staff Role Adal Fields MD Proceduralist Medications See Anesthesia Record. Preprocedure A history and physical has been performed, and patient medication allergies have been reviewed. The patient's tolerance of previous anesthesia has been reviewed. The risks and benefits of the procedure and the sedation options and risks were discussed with the patient. All questions were answered and informed consent obtained. Details of the Procedure The patient underwent monitored anesthesia care, which was administered by an anesthesia professional. The patient's blood pressure, ECG, ETCO2, heart rate, level of consciousness, oxygen and respirations were monitored throughout the procedure. A digital rectal exam was performed. The scope was introduced through the anus and advanced to the rectum. The quality of bowel preparation was evaluated using the [place] Bowel Preparation Scale with scores of: right colon = 0, transverse colon = 0, left colon = 0. The total BBPS score was 0. Bowel prep was not adequate. The patient experienced no blood loss. The procedure was not difficult. The patient tolerated the procedure well. There were no apparent adverse events. Events Procedure Events Event Event Time ENDO SCOPE IN TIME 12/13/2024 9:40 AM ENDO SCOPE OUT TIME 12/13/2024 9:42 AM Specimens No specimens collected Procedure Location [facility] External Facility [facility] [address] [address] [facility] [address] Referring Provider SANDEE Calderon Procedure Provider Adal Fields MD [facility] Work Phone: [facility] Work Phone: Radiology Study observation (narrative) [facility] Work Phone: HCG ( test) Ql (U)O rdered By: Fior Salazar on 12-13-2024 Interpretation and review of laboratory results Abnormal [facility] Preg Test, Ur Negative Negative [facility] BACTERIAL VAGINOSIS NAATon 0 11-18-2024 Lactobacillus crispatus+gasseri+petrona senii + Gardnerella vaginalis + Atopobium vaginae rRNA REYNA+probe Ql (Vag fld) Not detected Normal Not detected [facility] Comment on above: Order Comment: Speci men Type: BLOOD SPECIMEN Ordering Facility: Judy Stoner MD Address: [facility] [place] [address] Performed By: #### 2 4323-8, 85721-9, 6-3 #### [facility] CLIA [id number] [address] [place] [address] [place] DOUGLAS/TRICHOMONAS NAATon 0 11-18-2024 C. glabrata RNA REYNA+probe Ql (Vag fld) Not detected Normal Not detected [facility] Comment on above: Order Comment: Speci men Type: BLOOD SPECIMEN Ordering Facility: Judy Stoner MD Address: [facility] [place] [address] Performed By: #### 2 4323-8, 56934-4, 6-3 #### [facility] CLIA [id number] [address] [place] [address] [place] Douglas sp DNA REYNA+probe Ql (Vag fld) Not detected Normal Not detected [facility] Comment on above: Order Comment: Speci men Type: BLOOD SPECIMEN Ordering Facility: Judy Stoner MD Address: [facility] [place] [address] Result Comment: The Douglas species group target includes C. albicans, C. tropicalis, C. parapsilosis, and C. dubliniensis. Performed By: #### 2 4323-8, 10902-1, 3016-3 #### [facility] CLIA [id number] [address] OF [facility] T. vaginalis DNA REYNA+probe Ql (Unsp spec) Not detected Normal Not detected [facility] Comment on above: Order Comment: Speci men Type: BLOOD SPECIMEN Ordering Facility: Judy Stoner MD Address: [address] [place] [address] Performed By: #### 2 4323-8, 00740-8, 3016-3 #### [facility] CLIA [id number] [address] [place] [address] [place] CNOVon 11-18-2024 CNOV Office Visit (OBGYWM ) -------- KWADWO RODRIGUES ([id number]) 2000 [facility] Date Time Provider Department 11/18/24 8:00 AM QUENTIN BE OBGYWDana During your visit today, we recorded the following information about you: Blood pressure Weight 112/68 71.2 kg Quentin Be MD 11/18/2024 8:54 AM Signed Telephoto Installer offered: Patient accepts, visit chaperoned by Hortencia Bryson MA. Kwadwo Rodrigues is a 24 year old female who presents for problem visit to evaluate vulvovaginal itching transiently improved with monistat 7 and then returned externally that has improved with hydrocortisone. . 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 Asthma Left lateral knee pain 01/20/2014 Patellar tendinitis of right knee 01/20/2014 Unspecified asthma(493.90) dxed age 6 initially on [...] Paternal Grandfather lung Asthma Other gparents, cousin Social History Tobacco Use Smoking status: Never Smokeless tobacco: Never Vaping Use Vaping status: Never Used Substance Use Topics Alcohol use: Not Currently Comment: occasional Drug use: Never Current Outpatient Medications Medication Sig levonorgestrel (MIRENA) 21 mcg/24hr (up to 8 yrs) 52 mg IUD 1 Each by INTRAUTERINE route as directed. 25/iron fum/folic/dha (-1 ORAL) Take by mouth once daily. docusate sodium (COLACE ORAL) Take by mouth. acetaminophen (TYLENOL 8 HOUR ORAL) Take by mouth. No current facility-administered medications for this visit. Allergies As of Date: 11/18/2024 Allergen Noted Reaction LEVETIRACETAM 12/09/2020 Hives and Swelling SHELLFISH 03/27/2010 Hives SUMATRIPTAN 05/16/2024 Other: See Comments Fully Assessed 11/18/2024 REVIEW OF SYSTEMS Abdomen: No bloating, early satiety, indigestion, or increased flatulence. No abdominal pain, nausea, vomiting, diarrhea, or constipation. Bladder: No dysuria, gross hematuria, urinary frequency, urinary urgency, or incontinence. Breast: No breast lumps, nipple d/c, overlying skin changes, redness or skin retraction. Expanded ROS: N/A Allergies and current medication updated:Yes SENSITIVE EXAM: The sensitive examination was discussed with the Patient or Patient's Authorized Master Technician. As applicable, any other physician, advance practice provider, medical student, or other health professional student that will be observing or involved in the sensitive examination for educational or training purposes was discussed with the Patient or Authorized Master Technician. The Patient or Authorized Master Technician has agreed to proceed with the sensitive examination. (Sensitive examination includes inspection and/or palpation of the breasts, pelvis, prostate and anorectal regions). EXAM: BP 112/68 Wt 157 lb (71.2kg) LMP 09/30/2023 GENERAL: pleasant, female in no apparent distress PELVIC: external genitalia normal, normal Bartholin's glands, urethra, Commodore's glands, no vulvar lesions, no cervical lesions, good vaginal support, physiologic discharge present, normal appearing perineal body and perianal region BIMANUAL: uterus normal size, shape and consistency, no adnexal masses, and non-tender ASSESSMENT AND PLAN: Assessment AND Plan Vaginal itching Potential resolving douglas subsequent to antibiotic use. Cultures collected Quentin Be MD ftft~30m Quentin Be MD Allergies As of Date: 11/18/2024 Noted Allergy Reaction LEVETIRACETAM 12/09/2020 4 - Hives 7 - Swelling SHELLFISH 03/27/2010 4 - Hives SUMATRIPTAN 05/16/2024 14 - Other: See Comments Comments: Chest tightness and dizziness. Date Reviewed: 11/18/2024 Reviewed by: Quentin Be MD - Fully Assessed Reason for Visit: Vaginal Problem [117] Primary Visit Diagnosis:Vaginal itching [N89.8] Order(s):DOUGLAS/TRICHOM ONAS NAAT [SQCVTV] Order #: [id number] BACTERIAL VAGINOSIS NAAT [SQBVAMP] Order #: [id number] Prescriptions as of 11/18/2024 - docusate sodium (COLACE ORAL) Take by mouth. - levonorgestrel (MIRENA) (more content not included)... Normal [facility] 25(OH)D3 [facility] 25-hydroxyvitamin D3 [Mass/Vol] 32.8 ng/mL Normal 31.0-80.0 [facility] Comment on above: Order Comment: Speci men Type: BLOOD SPECIMEN Ordering Facility: Judy Stoner MD Address: [address] [place] [address] Result Comment: Clas sification of 25 [place] Vitamin D status: Deficiency/Insufficiency: < or = 30 ng/ml. Sufficiency/Optimal Levels: 31-80 ng/mL Toxicity: > 100 ng/mL. Test performed by chemiluminescent immunoassay. Performed By: #### 2 4323-8, 73934-2, 3 #### [facility] CLIA [id number] [address] [address] [place] CBC W Auto Differential pane l (Bld)on 11-16-2024 Basophils (Bld) [#/Vol] 10*3/uL Normal <0.11 [facility] Comment on above: Order Comment: Speci men Type: BLOOD SPECIMEN Ordering Facility: Judy Stoner MD Address: [address] [place] [address] Performed By: #### 2 4323-8, 49305-1, 3015-12 #### [facility] CLIA [id number] [address] [place] [id number] [place] Basophils/100 WBC (Bld) 0.2 % Normal [facility] Comment on above: Order Comment: Speci men Type: BLOOD SPECIMEN Ordering Facility: Judy Stoner MD Address: [address] [place] [address] Performed By: #### 2 4323-8, 73549-4, 3015-12 #### [facility] CLIA [id number] [address] [place] [address] [place] Differential cell count method Nom (Bld) Auto Normal [facility] Comment on above: Order Comment: Speci men Type: BLOOD SPECIMEN Ordering Facility: Judy Stoner MD Address: [address] [place] [address] Performed By: #### 2 4323-8, 48423-4, 3015-12 #### [facility] CLIA [id number] [address] [address] [place] Eosinophils (Bld) [#/Vol] 0.15 10*3/uL Normal <0.46 [facility] Comment on above: Order Comment: Speci men Type: BLOOD SPECIMEN Ordering Facility: Judy Stoner MD Address: [address], [place] [address] Performed By: #### 2 4323-8, 98444-7, 3 #### [facility] CLIA [id number] [address] [place] [address] [place] Eosinophils/100 WBC (Bld) 2.9 % Normal [facility] Comment on above: Order Comment: Speci men Type: BLOOD SPECIMEN Ordering Facility: Judy Stoner MD Address: [address], [place] [address] Performed By: #### 2 4323-8, 41757-5, 3 #### [facility] CLIA [id number] [address] [place] [address] [place] Erythrocyte distribution width (RBC) [Ratio] 11.8 % Normal 11.5-15.0 [facility] Comment on above: Order Comment: Speci men Type: BLOOD SPECIMEN Ordering Facility: Judy Stoner MD Address: [facility], [place] [address] Performed By: #### 2 4323-8, 75772-9, 3 #### [facility] CLIA [id number] [address] [place] [address] [place] Hematocrit (Bld) [Volume fraction] 37.4 % Normal 36.0-46.0 [facility] Comment on above: Order Comment: Speci men Type: BLOOD SPECIMEN Ordering Facility: Judy Stoner MD Address: [address], [place] [address] Performed By: #### 2 4323-8, 98499-6, 3 #### [facility] CLIA [id number] [address] [place] [address] [place] Hemoglobin (Bld) [Mass/Vol] 12.5 g/dL Normal 11.5-15.5 [facility] Comment on above: Order Comment: Speci men Type: BLOOD SPECIMEN Ordering Facility: Judy Stoner MD Address: [address] [place] [address] Performed By: #### 2 4323-8, 29112-9, 3015-3 #### [facility] CLIA [id number] [address] [address] [place] Immature granulocytes (Bld) [#/Vol] 10*3/uL Normal <0.10 [facility] Comment on above: Order Comment: Speci men Type: BLOOD SPECIMEN Ordering Facility: Judy Stoner MD Address: [address] [place] [address] Performed By: #### 2 4323-8, 30539-7, 3 #### [facility] CLIA [id number] [address] [place] [address] [place] Immature granulocytes/100 WBC (Bld) 0.2 % Normal [facility] Comment on above: Order Comment: Speci men Type: BLOOD SPECIMEN Ordering Facility: Judy Stoner MD Address: [address] [place] [address] Performed By: #### 2 4323-8, 26643-1, 3 #### [facility] CLIA [id number] [address] [place] [address] [place] Lymphocytes (Bld) [#/Vol] 1.94 10*3/uL Normal 1.00-4.00 [facility] Comment on above: Order Comment: Speci men Type: BLOOD SPECIMEN Ordering Facility: Judy Stoner MD Address: [address] [place] [address] Performed By: #### 2 4323-8, 99366-3, 3 #### [facility] CLIA [id number] [address] [address] [place] Lymphocytes/100 WBC (Bld) 37.0 % Normal [facility] Comment on above: Order Comment: Speci men Type: BLOOD SPECIMEN Ordering Facility: Judy Stoner MD Address: [address] [place] [address] Performed By: #### 2 4323-8, 29588-7, 3015-3 #### [facility] CLIA [id number] [address] [address] [place] MCH (RBC) [Entitic mass] 31.3 pg Normal 26.0-34.0 [facility] Comment on above: Order Comment: Speci men Type: BLOOD SPECIMEN Ordering Facility: Judy Stoner MD Address: [address], [place] [address] Performed By: #### 2 4323-8, 08648-7, 3 #### [facility] CLIA [id number] [address] [place] [place] [address] [place] MCHC (RBC) [Mass/Vol] 33.4 g/dL Normal 30.5-36.0 [facility] Comment on above: Order Comment: Speci men Type: BLOOD SPECIMEN Ordering Facility: Judy Stoner MD Address: [address], [place] [address] Performed By: #### 2 4323-8, 98228-9, 3 #### [facility] CLIA [id number] [address] [place] [address] [place] MCV (RBC) [Entitic vol] 93.7 fL Normal 80.0-100.0 [facility] Comment on above: Order Comment: Speci men Type: BLOOD SPECIMEN Ordering Facility: Judy Stoner MD Address: [address], [place] [address] Performed By: #### 2 4323-8, 51497-5, 3 #### [facility] CLIA [id number] [address] [address] [place] Monocytes (Bld) [#/Vol] 0.41 10*3/uL Normal <0.87 [facility] Comment on above: Order Comment: Speci men Type: BLOOD SPECIMEN Ordering Facility: Judy Stoner MD Address: [facility] [place] [address] Performed By: #### 2 4323-8, 24066-2, 3015-3 #### [facility] CLIA [id number] [address] [place] [address] [place] Monocytes/100 WBC (Bld) 7.8 % Normal [facility] Comment on above: Order Comment: Speci men Type: BLOOD SPECIMEN Ordering Facility: Judy Stoner MD Address: [facility] [place] [address] Performed By: #### 2 4323-8, 65692-8, 3015-3 #### [facility] CLIA [id number] [address] [place] [place] [address] [place] Neutrophils (Bld) [#/Vol] 2.72 10*3/uL Normal 1.45-7.50 [facility] Comment on above: Order Comment: Speci men Type: BLOOD SPECIMEN Ordering Facility: Judy Stoner MD Address: [facility] [place] [address] Performed By: #### 2 4323-8, 08057-4, 3015-3 #### [facility] CLIA [id number] [address] [place] [address], [place] [address] [place] Neutrophils/100 WBC (Bld) 51.9 % Normal [facility] Comment on above: Order Comment: Speci men Type: BLOOD SPECIMEN Ordering Facility: Judy Stoner MD Address: [facility] [place] [address] Performed By: #### 2 4323-8, 88063-1, 3015-3 #### [facility] CLIA [id number] [address] [address] [place] Nucleated RBC (Bld) [#/Vol] 10*3/uL Normal <0.01 [facility] Comment on above: Order Comment: Speci men Type: BLOOD SPECIMEN Ordering Facility: Judy Stoner MD Address: [facility] [place] [address] Performed By: #### 2 4323-8, 89867-6, 6-3 #### [facility] CLIA [id number] [address] [address] [place] Nucleated RBC/100 WBC (Bld) [Ratio] 0.0 /100 WBC Normal [facility] Comment on above: Order Comment: Speci men Type: BLOOD SPECIMEN Ordering Facility: Judy Stoner MD Address: [facility] [place] [address] Performed By: #### 2 4323-8, 93253-3, 3015-3 #### [facility] CLIA [id number] [address] [place] [address] [place] Platelet mean volume (Bld) [Entitic vol] 11.8 fL Normal 9.0-12.7 [facility] Comment on above: Order Comment: Speci men Type: BLOOD SPECIMEN Ordering Facility: Judy Stoner MD Address: [facility] [address], [place] [address] Performed By: #### 2 4323-8, 98892-8, 3015-3 #### [facility] CLIA [id number] [address] [place] [address] [place] Platelets (Bld) [#/Vol] 191 10*3/uL Normal 150-400 [facility] Comment on above: Order Comment: Speci men Type: BLOOD SPECIMEN Ordering Facility: Judy Stoner MD Address: [facility] [place] [address] Performed By: #### 2 4323-8, 12785-3, 3015-3 #### [facility] CLIA [id number] [address] [address] [place] RBC (Bld) [#/Vol] 3.99 10*6/uL Normal 3.90-5.20 [facility] Comment on above: Order Comment: Speci men Type: BLOOD SPECIMEN Ordering Facility: Judy Stoner MD Address: [facility] [place] [address] Performed By: #### 2 4323-8, 81686-0, 3016-3 #### [facility] CLIA [id number] [address] [address] [place] WBC (Bld) [#/Vol] 5.24 10*3/uL Normal 3.70-11.00 [facility] Comment on above: Order Comment: Speci men Type: BLOOD SPECIMEN Ordering Facility: Judy Stoner MD Address: [facility] [place] [address] Performed By: #### 2 4323-8, 17165-5, 3016-3 #### [facility] CLIA [id number] [address] [place] [address] [place] Comprehensive metabolic 2000 panelon 11-16-2024 Albumin [Mass/Vol] 4.2 g/dL Normal 3.9-4.9 [facility] Comment on above: Order Comment: Speci men Type: BLOOD SPECIMEN Ordering Facility: Judy Stoner MD Address: [facility] [place] [address] Performed By: #### 2 4323-8, 71182-2, 3016-3 #### [facility] CLIA [id number] [address] [place] [place] [address] [place] ALP [Catalytic activity/Vol] 94 U/L Normal 34-123 [facility] Comment on above: Order Comment: Speci men Type: BLOOD SPECIMEN Ordering Facility: Jduy Stoner MD Address: [facility] [place] [address] Performed By: #### 2 4323-8, 11958-5, 3016-3 #### [facility] CLIA [id number] [address] [place] [address], [place] [address] [place] ALT [Catalytic activity/Vol] 12 U/L Normal 7-38 [facility] Comment on above: Order Comment: Speci men Type: BLOOD SPECIMEN Ordering Facility: Judy Stoner MD Address: [address] [place] [address] Performed By: #### 2 4323-8, 69342-2, 3016-3 #### [facility] CLIA [id number] [address] [place] [place] [address] [place] Anion gap [Moles/Vol] 12 mmol/L Normal 8-15 [facility] Comment on above: Order Comment: Speci men Type: BLOOD SPECIMEN Ordering Facility: Judy Stoner MD Address: [address] [place] [address] Performed By: #### 2 4323-8, 83608-2, 3016-3 #### [facility] CLIA [id number] [address] [place], [place] [address] [place] AST [Catalytic activity/Vol] 16 U/L Normal 13-35 [facility] Comment on above: Order Comment: Speci men Type: BLOOD SPECIMEN Ordering Facility: Judy Stoner MD Address: [address] [place], [place] [address] [address] Performed By: #### 2 4323-8, 92409-4, 3016-3 #### [facility] CLIA [id number] [address] [place] [place] [address] [place] Bilirubin [Mass/Vol] 0.4 mg/dL Normal 0.2-1.3 [facility] Comment on above: Order Comment: Speci men Type: BLOOD SPECIMEN Ordering Facility: Judy Stoner MD Address: [facility] [place] [address] Performed By: #### 2 4323-8, 48273-8, 3016-3 #### [facility] CLIA [id number] [address] [place] [address] [place] Calcium [Mass/Vol] 9.6 mg/dL Normal 8.5-10.2 [facility] Comment on above: Order Comment: Speci men Type: BLOOD SPECIMEN Ordering Facility: Judy Stoner MD Address: [address] [place], [place] [address] [place] [address] Performed By: #### 2 4323-8, 68469-4, 3016-3 #### [facility] CLIA [id number] [address] [place] [place] [address] [place] Chloride [Moles/Vol] 107 mmol/L Normal 98-107 [facility] Comment on above: Order Comment: Speci men Type: BLOOD SPECIMEN Ordering Facility: Judy Stoner MD Address: [address] [place], [place] [address] [place] [address] Performed By: #### 2 4323-8, 67583-8, 3016-3 #### [facility] CLIA [id number] [address] [place] [address] [place] CO2 [Moles/Vol] 23 mmol/L Normal 22-30 [facility] Comment on above: Order Comment: Speci men Type: BLOOD SPECIMEN Ordering Facility: Judy Stoner MD Address: [address] [place], [place] [address] [place] [address] Performed By: #### 2 4323-8, 65547-5, 3016-3 #### [facility] CLIA [id number] [address] [place] [address] [place] Creatinine [Mass/Vol] 0.73 mg/dL Normal 0.58-0.96 [facility] Comment on above: Order Comment: Speci men Type: BLOOD SPECIMEN Ordering Facility: Judy Stoner MD Address: [facility] [place] [address] Performed By: #### 2 4323-8, 83384-5, 3016-3 #### [facility] CLIA [id number] [address] [place] [address] [place] Creatinine and Glomerular filtration rate.predicted panel (S/P/Bld) 117 mL/min/1.73m??? Normal >=60 [facility] Comment on above: Order Comment: Suyapa anna Type: BLOOD SPECIMEN Ordering Facility: Judy Stoner MD Address: [address], [place] [address] Result Comment: Chi mated Glomerular Filtration Rate (eGFR) is calculated using the 2020 CKD-EPI creatinine equation. This equation utilizes serum creatinine, sex, and age as parameters. The creatinine assay has traceable calibration to isotope dilution-mass spectrometry. Refer to KDIGO guidelines for clinical interpretation. In patients with unstable renal function, e.g. those with acute kidney injury, the eGFR may not accurately reflect actual GFR. Performed By: #### 2 4323-8, 35901-4, 6-3 #### [facility] CLIA [id number] [address] [place] [address] [place] Glucose [Mass/Vol] 82 mg/dL Normal 74-99 [facility] Comment on above: Order Comment: Suyapa anna Type: BLOOD SPECIMEN Ordering Facility: Judy Stoner MD Address: [facility], [place] [address] Result Comment: The [place] [employer] (ADA) provides guidance for cutoff values for fasting glucose and random glucose. The ADA defines fasting as no caloric intake for at least 8 hours. Fasting plasma glucose results between 100 to 125 mg/dL indicate increased risk for diabetes (prediabetes). Fasting plasma glucose results greater than or equal to 126 mg/dL meet the criteria for diagnosis of diabetes. In the absence of unequivocal hyperglycemia, results should be confirmed by repeat testing. In a patient with classic symptoms of hyperglycemia or hyperglycemic crisis, random plasma glucose results greater than or equal to 200 mg/dL meet the criteria for diagnosis of diabetes. Reference: Standards of Medical Care in Diabetes 2016, [place] Diabetes Association. Diabetes Care. 2016.39(Suppl 1). Performed By: #### 2 4323-8, 81158-6, 6-3 #### [facility] CLIA [id number] [id number] [address] [place] Potassium [Moles/Vol] 4.2 mmol/L Normal 3.7-5.1 [facility] Comment on above: Order Comment: Speci men Type: BLOOD SPECIMEN Ordering Facility: Judy Stoner MD Address: [facility] [place] [address] Performed By: #### 2 4323-8, 95260-5, 3016-3 #### [facility] CLIA [id number] [address] [place] [address] [place] Protein [Mass/Vol] 6.7 g/dL Normal 6.3-8.0 [facility] Comment on above: Order Comment: Speci men Type: BLOOD SPECIMEN Ordering Facility: Judy Stoner MD Address: [facility] [place] [address] Performed By: #### 2 4323-8, 42782-4, 6-3 #### [facility] CLIA [id number] [address] [place] [address] [place] Sodium [Moles/Vol] 142 mmol/L Normal 136-144 [facility] Comment on above: Order Comment: Speci men Type: BLOOD SPECIMEN Ordering Facility: Judy Stoner MD Address: [facility] [place] [address] Performed By: #### 2 4323-8, 38079-8, 6-3 #### [facility] CLIA [id number] [address] [place] [address] [place] [address] [place] Urea nitrogen [Mass/Vol] 11 mg/dL Normal 7-21 [facility] Comment on above: Order Comment: Speci men Type: BLOOD SPECIMEN Ordering Facility: Judy Stoner MD Address: [facility] [place] [address] Performed By: #### 2 4323-8, 42942-3, 3016-3 #### [facility] CLIA [id number] [address] [place] [address] [place] Iron SerPl-mCncon 11-16-2024 Iron [Mass/Vol] 107 ug/dL Normal 41-186 [facility] Comment on above: Order Comment: Speci men Type: BLOOD SPECIMEN Ordering Facility: Judy Stoner MD Address: [facility] [place] [address] Performed By: #### 2 4323-8, 83129-2, 3016-3 #### [facility] CLIA [id number] [address] [place], [place] [id number] [facility] [place] Lipid 1996 panelon Cholesterol [Mass/Vol] 129 mg/dL Normal <200 [facility] Comment on above: Order Comment: Speci men Type: BLOOD SPECIMEN Ordering Facility: Judy Stoner MD Address: [facility] [place] [address] Result Comment: <200 mg/dL, Desirable 200-239 mg/dL, Borderline high >239 mg/dL, High Performed By: #### 2 4323-8, 23925-9, 3015-3 #### [facility] CLIA [id number] [address] [place], [place] [id number] [facility] Cholesterol in HDL [Mass/Vol] 53 mg/dL Normal >39 [facility] Comment on above: Order Comment: Speci men Type: BLOOD SPECIMEN Ordering Facility: Judy Stoner MD Address: [facility] [place] [address] Result Comment: 40-5 9 mg/dL, Acceptable >59 mg/dL, High: Negative risk factor for coronary heart disease <40 mg/dL, Low: Positive risk factor for coronary heart disease Performed By: #### 2 4323-8, 46922-5, 6-3 #### [facility] CLIA [id number] [address] [place], [place] [address] [facility] [place] Cholesterol in LDL [Mass/Vol] 65 mg/dL Normal <100 [facility] Comment on above: Order Comment: Speci men Type: BLOOD SPECIMEN Ordering Facility: Judy Stoner MD Address: [address], [place] [address] Result Comment: <100 mg/dL, Optimal 100-129 mg/dL, Near optimal/above optimal 130-159 mg/dL, Borderline high 160-189 mg/dL, High >189 mg/dL, Very high Secondary prevention optimal LDL Cholesterol levels are recommended to be < 70 mg/dL Performed By: #### 2 4323-8, 72959-3, 6-3 #### [facility] CLIA [id number] [address] [facility] [address] [address] [place] Cholesterol in LDL/Cholesterol in HDL [Mass ratio] 1.23 {ratio} Normal <2.54 [facility] Comment on above: Order Comment: Speci men Type: BLOOD SPECIMEN Ordering Facility: Judy Stoner MD Address: [facility], [place] [address] Result Comment: Refe rence: 1. National Cholesterol Education Program ATP III Guideline At-A-Glance Quick Desk Reference: National Heart, Lung, and Blood [place]. National Institutes of Health. 2001: NIH Publication No. 01-3305. 2. An International Atherosclerosis Society position paper: global recommendations for the management of dyslipidemia: executive summary, Atherosclerosis. 2014: 232(2):410-413. Performed By: #### 2 4323-8, 71672-7, 3015-3 #### [facility] CLIA [id number] [address] [facility] [address] [address] [place] Cholesterol in VLDL [Mass/Vol] 11 mg/dL Normal <30 [facility] Comment on above: Order Comment: Speci men Type: BLOOD SPECIMEN Ordering Facility: Judy Stoner MD Address: [address], [place] [address] Performed By: #### 2 4323-8, 84478-4, 3015-3 #### [facility] CLIA [id number] 95[address] [facility] [address] [place] [address] [place] Cholesterol non HDL [Mass/Vol] 76 mg/dL Normal <130 [facility] Comment on above: Order Comment: Speci men Type: BLOOD SPECIMEN Ordering Facility: Judy Stoner MD Address: [facility], [place] [address] Result Comment: <130 mg/dL, Optimal 130-159 mg/dL, Near optimal/above optimal 160-189 mg/dL, Borderline high 190-219 mg/dL, High >219 mg/dL, Very high Secondary prevention optimal non HDL Cholesterol levels are recommended to be <100 mg/dL Performed By: #### 2 4323-8, 31680-9, 3016-3 #### [facility] CLIA [id number] [address] [place] [address] [place] Cholesterol.total/Cho lesterol in HDL [Mass ratio] 2.43 {ratio} Normal <5.10 [facility] Comment on above: Order Comment: Speci men Type: BLOOD SPECIMEN Ordering Facility: Judy Stoner MD Address: [facility] [address], [place] [address] Performed By: #### 2 4323-8, 11647-9, 6-3 #### [facility] CLIA [id number] [address] [place] [address] [place] FASTING TIME 12 hrs Normal [facility] Comment on above: Order Comment: Speci men Type: BLOOD SPECIMEN Ordering Facility: Judy Stoner MD Address: [facility], [place] [address] Performed By: #### 2 4323-8, 54023-1, 6-3 #### [facility] CLIA [id number] [address] [place] [address] [place] Triglyceride [Mass/Vol] 55 mg/dL Normal <150 [facility] Comment on above: Order Comment: Speci men Type: BLOOD SPECIMEN Ordering Facility: Judy Stnoer MD Address: [facility], [place] [address] Result Comment: <150 mg/dL, Normal 150-199 mg/dL, Borderline high 200-499 mg/dL, High >499 mg/dL, Very high Performed By: #### 2 4323-8, 41304-5, 3016-3 #### [facility] CLIA [id number] [address] [place] [id number] [place] TSH SerPl-aCncon 11-16-2024 TSH Qn 1.490 m[IU]/L Normal 0.270-4.200 [facility] Comment on above: Order Comment: Speci men Type: BLOOD SPECIMEN Ordering Facility: Judy Stoner MD Address: [address] [place] [address] Result Comment: If t he patient is , TSH reference range varies by gestational period: First Trimester (weeks 9-12): 0.180-2.990 mIU/L Second Trimester: 0.110-3.980 mIU/L Third Trimester: 0.480-4.710 mIU/L Josue Coleman et al. A Practical Approach for the Verifications and Determination of Site- and Trimester-Specific Reference Intervals for Thyroid Function tests in . Thyroid, 2019:29:3:412-420. Raúl Eldridge, et al. 2017 Guidelines of the [place] Thyroid Association for the Diagnosis and Management of Thyroid Disease during and the . Thyroid, 2017:27:3:315-389. Performed By: #### 2 4323-8, 85046-6, 3016-3 #### [facility] CLIA [id number] [address] [place] [id number] [place] Liana 11-15-2024 OXANAN Telephone (EMILY) -------- KWADWO RODRIGUES ([id number]) 2000 [address] [facility] Date Time Provider Department 11/15/24 GALE SON During your visit today, we recorded the following information about you: Viry Kennedy RN 11/15/2024 3:56 PM Signed On 11/04/24- started 7 day tx for monistat. Completed and was okay for 3 days. Now started today with soreness in vaginal area/itching again. Normal vaginal discharge now. Made appt for Monday at 0800, but wanting to know what she should do for over the weekend if she begins to have worsening symptoms. Please advise. GLI Muniz Jennifer, MD 11/15/2024 4:28 PM Signed She may not have had a yeast infection. It could have been BV instead. The monistat may have masked the symptoms. Its also possible that she may be having a reaction to the monistat. Hydrocortisone cream is ok for itching. Sometime a cold compress will help the soreness. Cyndi Garcia RN 11/15/2024 4:41 PM Signed Patient notified and voiced understanding of below information and instructions. Cyndi Garcia RN Allergies As of Date: 11/15/2024 Noted Allergy Reaction LEVETIRACETAM 12/09/2020 4 - Hives 7 - Swelling SHELLFISH 03/27/2010 4 - Hives SUMATRIPTAN 05/16/2024 14 - Other: See Comments Comments: Chest tightness and dizziness. Date Reviewed: 10/03/2024 Reviewed by: Maddy Cintron APRN.CHILDREN'S MINISTER - Fully Assessed Reason for Visit: Vaginal Problem [117] Prescriptions as of 11/15/2024 - docusate sodium (COLACE ORAL) Take by mouth. - levonorgestrel (MIRENA) 21 mcg/24hr (up to 8 yrs) 52 mg IUD 1 Each by INTRAUTERINE route as directed. - acetaminophen (TYLENOL 8 HOUR ORAL) Take by mouth. - 25/iron fum/folic/dha (-1 ORAL) Take by mouth once daily. Problem List As Of Date 11/15/2024 Noted Resolved Asthma, mild intermittent [J45.20] 11/22/2007 Patellar tendinitis of right knee [M76.51] 01/20/2014 11/27/2023 Left lateral knee pain [M25.562] 01/20/2014 11/27/2023 Supervision of high risk in third tri*11/27/2023 08/01/2024 Hx of migraines [Z86.69] 11/27/2023 Occasional tremors [R25.1] 11/27/2023 Genetic screening [Z13.79] 12/04/2023 12/26/2023 Rh negative state in antepartum period [O26.899*12/27/2023 08/01/2024 Back pain affecting in second trimest*01/13/2024 05/14/2024 Nausea/vomiting in [O21.9] 01/14/2024 05/14/2024 Nephrolithiasis [N20.0] 01/18/2024 Dehydration [E86.0] 01/18/2024 Acute right-sided low back pain without sciatic*04/12/2024 08/01/2024 Abdominal pain during in second trime*04/12/2024 05/14/2024 28 weeks gestation of [Z3A.28] 04/19/2024 05/14/2024 Elevated BP without diagnosis of hypertension [*05/14/2024 08/01/2024 Gestational hypertension without significant pr*05/16/2024 08/01/2024 Persistent headaches [R51.9] 05/31/2024 Anemia complicating , third trimester *05/31/2024 08/01/2024 Hypokalemia [E87.6] 05/31/2024 Encounter Status:Closed by CYNDI GARCIA on 11/15/24 Normal [facility] 11-04-2024 Indication Localization of IUD, Abnormal uterine bleeding Impression The uterus is anteverted and measures 78 mm x 32 mm x 53 mm. The endometrial thickness is 4.4 mm. IUD is properly positioned at the uterine fundus. The right ovary measures 35 mm x 22 mm x 16 mm. The left ovary measures 15 mm x 21 mm x 29 mm. There is no free fluid visualized. Recommendations Normal pelvic ultrasound with appropriately placed IUD Menstrual History Cycle: LMP date uncertain, bleeding since IUD insertion. Contraception: Intrauterine contraceptive device Method Transabdominal, transvaginal, 3D ultrasound examination, Color Doppler examination. View: Adequate visualization Uterus Uterus: Visualized Uterus position: anteverted Description of uterine malformations: none Myometrium: normal Endometrium: normal Cervix details: normal Uterus length 78 mm Uterus width 53 mm Uterus height 32 mm Uterus Vol 68.4 cm Endometrial thickness, total 4.4 mm Fibroids: No fibroids identified Polyps: No polyps identified IUCD Position control IUCD type: Mirena intrauterine system. Location: positioned correctly at the fundus of the uterus Right Ovary Rt ovary: Visualized Rt ovary morphology: premenopausal normal follicular Rt ovary D1 35 mm Rt ovary D2 22 mm Rt ovary D3 16 mm Rt ovary Vol 6.4 cm Left Ovary Lt ovary: Visualized Lt ovary morphology: premenopausal normal follicular Lt ovary D1 15 mm Lt ovary D2 21 mm Lt ovary D3 29 mm Lt ovary Vol 4.6 cm Cul de Sac Visualized. no free fluid visualized Procedure To characterize the IUD position, three dimensional imaging was created on a dedicated stand-alone 3D workstation with images created and archived, and supervised and reviewed by the interpreting physician utilizing images from an ultrasound scan performed today. Performed By: Radha Grimaldo RDMS Read By: Yessy Uribe M.D. MATERNAL MEDICINE [facility] [place] 11-01-2024 Radiology Study observation (narrative) [facility] 10-22-2024 OXANAN Telephone (OBGYWM) -------- KWADWO RODRIGUES ([id number]) 2000 [address] [facility] Date Time Provider Department 10/22/24 MALORIE BROWN OBGYWDana During your visit today, we recorded the following information about you: Lisa Bernal, GIL 10/22/2024 10:52 AM Signed Patient calling regarding constipation. States she discussed this with at 08/29/24 appointment. Since then she has tried what provider told her to. She has increased fiber in diet, increased water intake, pear juice and stool softener. She has to take 3 of colace a day to have a tolerable bowel movement, but it is still painful each time. States provider told her if it continues she can place a referral for her to see a provider. Please advise. Patient is wanting a call back and not a mychart message. GIL Sharma Sara, MD 10/22/2024 12:15 PM Signed Recommend Benefiber and using Miralax as well first. Can see GI if she would like and order placed since she is not established with a PCP - would probably take several months to see a PCP. If she does have a PCP that is not entered in chart would call them first if Benefiber and Miralax do not improve symptoms Lisa Bernal RN 10/24/2024 9:07 AM Signed Patient notified. Lisa Bernal RN Allergies As of Date: 10/22/2024 Noted Allergy Reaction LEVETIRACETAM 12/09/2020 4 - Hives 7 - Swelling SHELLFISH 03/27/2010 4 - Hives SUMATRIPTAN 05/16/2024 14 - Other: See Comments Comments: Chest tightness and dizziness. Date Reviewed: 10/03/2024 Reviewed by: Maddy Cintron APRN.CHILDREN'S MINISTER - Fully Assessed Reason for Visit: Patient Update [1234] Primary Visit Diagnosis:Pain with bowel movements [R19.8] Other Visit Diagnosis:Constipation, unspecified constipation type [K59.00] Order(s):CONSULT TO GASTROENTEROLOGY [9010] Order #: [id number]: 1 FUTURE Prescriptions as of 10/24/2024 - docusate sodium (COLACE ORAL) Take by mouth. - levonorgestrel (MIRENA) 21 mcg/24hr (up to 8 yrs) 52 mg IUD 1 Each by INTRAUTERINE route as directed. - acetaminophen (TYLENOL 8 HOUR ORAL) Take by mouth. - 25/iron fum/folic/dha (-1 ORAL) Take by mouth once daily. Problem List As Of Date 10/22/2024 Noted Resolved Asthma, mild intermittent [J45.20] 11/22/2007 Patellar tendinitis of right knee [M76.51] 01/20/2014 11/27/2023 Left lateral knee pain [M25.562] 01/20/2014 11/27/2023 Supervision of high risk in third tri*11/27/2023 08/01/2024 Hx of migraines [Z86.69] 11/27/2023 Occasional tremors [R25.1] 11/27/2023 Genetic screening [Z13.79] 12/04/2023 12/26/2023 Rh negative state in antepartum period [O26.899*12/27/2023 08/01/2024 Back pain affecting in second trimest*01/13/2024 05/14/2024 Nausea/vomiting in [O21.9] 01/14/2024 05/14/2024 Nephrolithiasis [N20.0] 01/18/2024 Dehydration [E86.0] 01/18/2024 Acute right-sided low back pain without sciatic*04/12/2024 08/01/2024 Abdominal pain during in second trime*04/12/2024 05/14/2024 28 weeks gestation of [Z3A.28] 04/19/2024 05/14/2024 Elevated BP without diagnosis of hypertension [*05/14/2024 08/01/2024 Gestational hypertension without significant pr*05/16/2024 08/01/2024 Persistent headaches [R51.9] 05/31/2024 Anemia complicating , third trimester *05/31/2024 08/01/2024 Hypokalemia [E87.6] 05/31/2024 Encounter Status:Closed by LISA BERNAL on 10/24/24 Normal [facility] CBC panel Auto (Bld)on 10-03 Erythrocyte distribution width (RBC) [Ratio] 12.2 % Normal 11.5-15.0 [facility] Comment on above: Order Comment: Suyapa anna Type: BLOOD SPECIMEN Ordering Facility: Judy Stoner MD Address: [place] [address] Performed By: #### 2 4323-8, 43965-5, 3016-3 #### [facility] CLIA [id number] [address] [place] [address] OF [facility] Hematocrit (Bld) [Volume fraction] 37.9 % Normal 36.0-46.0 [facility] Comment on above: Order Comment: Suyapa anna Type: BLOOD SPECIMEN Ordering Facility: Judy Stoner MD Address: [address], [place] [address] Performed By: #### 2 4323-8, 26377-3, 3015-3 #### [facility] CLIA [id number] [address] [place] [address] [place] Hemoglobin (Bld) [Mass/Vol] 12.6 g/dL Normal 11.5-15.5 [facility] Comment on above: Order Comment: Speci men Type: BLOOD SPECIMEN Ordering Facility: Judy Stoner MD Address: [facility], [place] [address] Performed By: #### 2 4323-8, 53326-6, 3 #### [facility] CLIA [id number] [address] [place], [place] [address] [place] MCH (RBC) [Entitic mass] 30.8 pg Normal 26.0-34.0 [facility] Comment on above: Order Comment: Speci men Type: BLOOD SPECIMEN Ordering Facility: Judy Stoner MD Address: [facility] [place] [address] Performed By: #### 2 4323-8, 09671-0, 3 #### [facility] CLIA [id number] [address] [place], [place] [address] [place] MCHC (RBC) [Mass/Vol] 33.2 g/dL Normal 30.5-36.0 [facility] Comment on above: Order Comment: Speci men Type: BLOOD SPECIMEN Ordering Facility: Judy Stoner MD Address: [address], [place] [address] Performed By: #### 2 4323-8, 74911-4, 3 #### [facility] CLIA [id number] [address] [place] [place] [address] [place] MCV (RBC) [Entitic vol] 92.7 fL Normal 80.0-100.0 [facility] Comment on above: Order Comment: Speci men Type: BLOOD SPECIMEN Ordering Facility: Judy Stoner MD Address: [address], [place] [address] Performed By: #### 2 4323-8, 78089-3, 3015-3 #### [facility] CLIA [id number] [address] [address] [place] Nucleated RBC (Bld) [#/Vol] 10*3/uL Normal <0.01 [facility] Comment on above: Order Comment: Speci men Type: BLOOD SPECIMEN Ordering Facility: Judy Stoner MD Address: [address], [place] [address] Performed By: #### 2 4323-8, 74517-5, 3015-3 #### [facility] CLIA [id number] [address] [place] [address] [place] Platelet mean volume (Bld) [Entitic vol] 12.0 fL Normal 9.0-12.7 [facility] Comment on above: Order Comment: Suyapa anna Type: BLOOD SPECIMEN Ordering Facility: Judy Stoner MD Address: [address], [place] [address] Performed By: #### 2 4323-8, 87011-4, 3015-3 #### [facility] CLIA [id number] [address] [place] [address] [place] Platelets (Bld) [#/Vol] 208 10*3/uL Normal 150-400 [facility] Comment on above: Order Comment: Spechannah men Type: BLOOD SPECIMEN Ordering Facility: Judy Stoner MD Address: [address], [place] [address] Performed By: #### 2 4323-8, 24757-1, 3015-3 #### [facility] CLIA [id number] [address] [address] [place] RBC (Bld) [#/Vol] 4.09 10*6/uL Normal 3.90-5.20 [facility] Comment on above: Order Comment: Speci men Type: BLOOD SPECIMEN Ordering Facility: Judy Stoner MD Address: [facility] [address], [place] [address] Performed By: #### 2 4323-8, 91060-8, 3016-3 #### [facility] CLIA [id number] [address] [place], [place] [address] [facility] WBC (Bld) [#/Vol] 6.00 10*3/uL Normal 3.70-11.00 [facility] Comment on above: Order Comment: Spechannah men Type: BLOOD SPECIMEN Ordering Facility: Judy Stoner MD Address: [facility] [address], [place] [address] Performed By: #### 2 4323-8, 63749-1, 3016-3 #### [facility] CLIA [id number] [address] [place], [place] [address] [facility] CNOVon 10-03-2024 CNOV Office Visit (OBGYWM ) -------- KWADWO RODRIGUES ([id number]) 2000 [facility] Date Time Provider Department 10/03/24 11:10 AM MADDY CINTRON OBCHARLES During your visit today, we recorded the following information about you: Blood pressure Weight 120/60 71.7 kg Maddy Cintron APRN.CNP 10/03/2024 11:53 AM Signed Telephoto Installer offered: Patient declines. Kwadwo Rodrigues presents today for IUD check. She had a Mirena placed on 08/29/2024. She has had bleeding and cramping since placement. Bleeding ranges from having to change a panty liner a few times a day to 2-3 pads per day. Has only had 1 day of no bleeding. REVIEW OF SYSTEMS: VALET ATTENDANT: + bleeding, cramping SENSITIVE EXAM: The sensitive examination was discussed with the Patient or Patient's Authorized Master Technician. As applicable, any other physician, advance practice provider, medical student, or other health professional student that will be observing or involved in the sensitive examination for educational or training purposes was discussed with the Patient or Authorized Master Technician. The Patient or Authorized Master Technician has agreed to proceed with the sensitive examination. (Sensitive examination includes inspection and/or palpation of the breasts, pelvis, prostate and anorectal regions). PHYSICAL EXAMINATION: BP 120/60 Wt 158 lb (71.7kg) LMP 09/30/2023 ABDOMEN:soft, non-tender, no masses, no hepatosplenomegaly, and no lymphadenopathy EXTERNAL GENITALIA: Normal genitalia and Bartholins, Urethra, Sken'e normal CERVIX: smooth, no lesions and IUD strings visualized. UTERUS: normal size, regular, non-tender, and freely mobile ADNEXA: negative for tenderness or masses IMPRESSION/PLAN: IUD correctly positioned. Follow up for annual exam or sooner if needed. ASSESSMENT/PLAN: 1. IUD check up - ICD9: V25.42, ICD10: Z30.431 - Exam reassuring for IUD placement - Recommend giving IUD more time since bleeding isn't heavy and no pain - To notify if using more than 1 pad/tampon an hour or pain occur - COMPLETE BLOOD COUNT - PELVIC US WHI - Patient comfortable with plan of care Maddy Cintron APRN.CNP Medical Decision Making: Problems: Low: Acute, uncomplicated illness or injury Data: Unique test(s) ordered: 2 Risk: Minimal: Minimal risk from testing/treatment Moderate: Drug management Medical Decision Making Level: 3 - Low Allergies As of Date: 10/03/2024 Noted Allergy Reaction LEVETIRACETAM 12/09/2020 4 - Hives 7 - Swelling SHELLFISH 03/27/2010 4 - Hives SUMATRIPTAN 05/16/2024 14 - Other: See Comments Comments: Chest tightness and dizziness. Date Reviewed: 10/03/2024 Reviewed by: Maddy Cintron APRN.CHILDREN'S MINISTER - Fully Assessed Reason for Visit: IUD Check [Other] Primary Visit Diagnosis:IUD check up [Z30.431] Order(s):COMPLETE BLOOD COUNT [SQCBC] Order #: [id number] FUTURE PELVIC US WHI [[id number]] Order #: [id number]: 1 FUTURE Prescriptions as of 10/03/2024 - docusate sodium (COLACE ORAL) Take by mouth. - levonorgestrel (MIRENA) 21 mcg/24hr (up to 8 yrs) 52 mg IUD 1 Each by INTRAUTERINE route as directed. - acetaminophen (TYLENOL 8 HOUR ORAL) Take by mouth. - 25/iron fum/folic/dha (-1 ORAL) Take by mouth once daily. Problem List As Of Date 10/03/2024 Noted Resolved Asthma, mild intermittent [J45.20] 11/22/2007 Patellar tendinitis of right knee [M76.51] 01/20/2014 11/27/2023 Left lateral knee pain [M25.562] 01/20/2014 11/27/2023 Supervision of high risk in third tri*11/27/2023 08/01/2024 Hx of migraines [Z86.69] 11/27/2023 Occasional tremors [R25.1] 11/27/2023 Genetic screening [Z13.79] 12/04/2023 12/26/2023 Rh negative state in antepartum period [O26.899*12/27/2023 08/01/2024 Back pain affecting in second trimest*01/13/2024 05/14/2024 Nausea/vomiting in [O21.9] 01/14/2024 05/14/2024 Nephrolithiasis [N20.0] 01/18/2024 Dehydration [E86.0] 01/18/2024 Acute right-sided low back pain without sciatic*04/12/2024 08/01/2024 Abdominal pain during in second trime*04/12/2024 05/14/2024 28 weeks gestation of [Z3A.28] 04/19/2024 05/14/2024 Elevated BP without diagnosis of hypertension [*05/14/2024 08/01/2024 Gestational hypertension without significant pr*05/16/2024 08/01/2024 Persistent headaches [R51.9] 05/31/2024 Anemia complicating , third trimester *05/31/2024 08/01/2024 Hypokalemia [E87.6] 05/31/2024 Medications Discontinued During This Encounter Prescriptions - MAGNESIUM ORAL (Discontinued) Reported on 08/01/2024 - ferrous sulfate (IRON ORAL) (Discontinued) Reported on 08/01/2024 - famotidine (PEPCID ORAL) (Discontinued) Reported on 06/21/2024 - aspirin, enteric coated (ASPIRIN, ENTERIC COATED) 81 mg EC tablet (Discontinued) Reported on 06/21/2024 Encounter Status:Closed by MADDY CINTRON on 10/03/24 Normal [facility] C. trachomatis+N. gonorrhoea e DNA REYNA+probe Ql (Unsp spec)on 08-29-2024 C. trachomatis rRNA REYNA+probe Ql (Unsp spec) Negative Normal Negative for Chlamydia trachomatis by amplificaton [facility] Comment on above: Order Comment: Speci men Type: SWAB Ordering Facility: [facility] Address: [address] [place] [address] Performed By: #### 3 6902-5 #### [facility] CLIA [id number] [address] [place] [address] [place] N. gonorrhoeae rRNA REYNA+probe Ql (Unsp spec) Negative Normal Negative for Neisseria gonorrhoeae by amplification [facility] Comment on above: Order Comment: Speci men Type: SWAB Ordering Facility: [facility] Address: [address] [place] [address] Performed By: #### 3 [id number] #### [facility] CLIA [id number] [address] [place] [address] [place] CNOVon 08-29-2024 CNOV Office Visit (OBGYWM ) -------- KWADWO RODRIGUES ([id number]) 2000 F [facility] Date Time Provider Department 08/29/24 11:30 AM MALORIE BROWN During your visit today, we recorded the following information about you: Blood pressure Weight 120/78 70 kg Malorie Brown MD 08/29/2024 12:50 PM Signed Telephoto Installer offered: Patient declines. Kwadwo presents today for IUD insertion for contraception. Patient's last menstrual period was 09/30/2023. GC/chlamydia: Negative on 11/27/2023 test: negative Side effects including irregular bleeding were discussed with the patient. The patient understands that it should be removed in 8 years or sooner if the patient desires a . IUD source: office provided IUD lot #: [id number] Exp date: 09/[address] [facility]: [id number] UNIVERSAL PROTOCOL / SAFETY CHECKLIST Procedure to be Performed: Mirena IUD Insertion Sign In: A Moment of CARE was completed. Personnel directly involved with the procedure wore the appropriate PPE (Personal Protective Equipment). Patient/Surrogate Stated/Verified: PATIENT VERIFIED(optional for EMERGENT procedures): Patient name, Date of , Relevant allergies, and The intended procedure Time Out Communication: Intended patient and procedure match the source documents. Consent documented and matches the intended procedure. Sign Out: SIGN OUT (optional for EMERGENT procedures): No specimen collected. All instruments, equipment, possible retained foreign bodies accounted for. Post-procedure follow-up management communicated and Plan of Care Visit completed when applicable. The cervix was prepped with betadine. The uterus sounded to 8 cm and the uterus is Anteverted.. Using sterile technique, the Mirena IUD was inserted without difficulty and the string was cut to 2 cm from the external os of the cervix. Patient tolerated procedure well. PLAN: Patient was advised to observe for signs and symptoms of infection including but not limited to fever, malodorous vaginal discharge and/or pain. The patient was told to check the string monthly for accurate placement. Bleeding expectations were reviewed. Follow up in one month. DO Carissa Luque Amanda, MA 08/29/2024 11:26 AM Signed POST IUD INSTRUCTIONS You may have irregular bleeding during the first 3 months of use. You may have mild-severe cramping for the next 48 hours. You may use over the counter medication (Motrin, Tylenol) as needed. Your IUD must be removed or replaced based on the following table: IUD Type Removed or replaced within: Daisha 3 years Kyleena 5 years Mirena 8 years Liletta 8 years Paragard 10 years Call the office for signs/symptoms of infection such as severe cramping, fever, or unusual bleeding. Check for string placement as instructed by your doctor. If you have any additional questions, please contact the office. Referring Provider: OCTAVIO BALBUENA [[id number]] Allergies As of Date: 08/29/2024 Noted Allergy Reaction LEVETIRACETAM 12/09/2020 4 - Hives 7 - Swelling SHELLFISH 03/27/2010 4 - Hives SUMATRIPTAN 05/16/2024 14 - Other: See Comments Comments: Chest tightness and dizziness. Date Reviewed: 08/29/2024 Reviewed by: Mirella Ferrer MA - Fully Assessed Reason for Visit: Insertion Of IUD [291] Primary Visit Diagnosis:Encounter for IUD insertion [Z30.430] Other Visit Diagnosis:Screen for STD (sexually transmitted disease) [Z11.3] Order(s):INSERT INTRAUTERINE DEVICE [[id number]] Order #: [id number] [] levonorgestrel 21 mcg/24hr (up to 8 yrs) 52 mg 1 Each intrauterine device (MIRENA)Disp: Rfl: levonorgestrel (MIRENA) 21 mcg/24hr (up to 8 yrs) 52 mg IUD1 Each by INTRAUTERINE route as directed.Disp: 1 EachRfl: 0 UA DIP,URINE HCG (POC) [[id number]] Order #: [id number]. #:[id number] GONORRHEA/CHLAMYDIA NAAT [SQGCCT] Order #: [id number] Prescriptions as of 08/29/2024 - levonorgestrel (MIRENA) 21 mcg/24hr (up to 8 yrs) 52 mg IUD 1 Each by INTRAUTERINE route as directed. - ferrous sulfate (IRON ORAL) Take by mouth. - aspirin, enteric coated (ASPIRIN, ENTERIC COATED) 81 mg EC tablet Take 81 mg by mouth once daily. - MAGNESIUM ORAL Take by mouth. - famotidine (PEPCID ORAL) Take by mouth as needed. - acetaminophen (TYLENOL 8 HOUR ORAL) Take by mouth. - 25/iron fum/folic/dha (-1 ORAL) Take by mouth once daily. Problem List As Of Date 08/29/2024 Noted Resolved Asthma, mild intermittent [J45.20] 11/22/2007 Patellar tendinitis of right knee [M76.51] 01/20/2014 11/27/2023 Left lateral knee pain [M25.562] 01/20/2014 11/27/2023 Supervision of high risk in third tri*11/27/2023 08/01/2024 Hx of migraines [Z86.69] 11/27/2023 Occasional tremors [R25.1] 11/27/2023 Genetic screening [Z13.79] 12/04/2023 12/26/2023 Rh negative state in antepartum period [O26.899* (more content not included)... Normal [facility] UA DIP,URINE HCG (POC)on Beta HCG ( test) Ql (U) Negative Negative [facility] Comment on above: Location:[facility], [address] [place], [address] International Marketing Manager (POCT) Internal QC [facility] Location:[facility], [address], [place], [address] [place] [address] POINT OF CARE [facility] MR/AYDEE.Claudia 08-27-2024 MR/AYDEE.[facility] [address] [facility] [place] [address] OFFICE VISIT Date of Service: 08/22/24 MR#: [id number] Acct: [id number] Name: KWADWO RODRIGUES BJ Rep #: [id number] : 2000 Provider: Cintia Thorpe NP Age/Sex: 24/F Location: [facility] Status: Signed Intake Vital Signs 08/08/24 09:41 08/27/24 15:05 Height 5 ft 2 in 5 ft 2 in Intake Visit Reasons: milk supply follow up Chief Complaint: low milk suppy follow up Allergies shellfish derived Allergy (Severe, Verified 06/16/24 19:28) Hives levetiracetam (From Keppra) Adverse Reaction (Severe, Verified 06/16/24 19:28) Hives sumatriptan (From Imitrex) Adverse Reaction (Unknown, Verified 06/16/24 19:28) Other : Yes PFSH PFSH Medical History (Updated 06/27/24 @ 00:02 by Eva Charles) Muscle tremor Headache Gestational HTN Asthma Migraine H pylori ulcer Pneumonia Hives UTI (urinary tract infection) Asthma Surgical History (Updated 06/16/24 @ 20:28 by Virginia Cordon) History of surgery [place] teeth extracted H/O knee surgery Family History Sister Asthma Grandfather Cancer lung Grandmother Diabetes Parkinson disease Alzheimer disease Aunt Diabetes Uncle Diabetes Mother Hypertension Thyroid disorder Father Hypertension Grandfather Kidney disease Social History household members: spouse current occupational status: employed 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[employer] Smoking Status: Never smoker Electronic Cigarette Use: not used second hand exposure: No alcohol intake: current alcohol intake frequency: a few times a month substance use type: does not use what type of physical activity do you participate in: walking frequency: 3-4 times per week do you feel safe at home: Yes History 1 Elective abortions Hx Para 1 Spontaneous abortions Hx # Term Pregnancies Ectopic pregnancies Hx # Pregnancies Multiple births # of living children 1 HPI HPI HPI: KWADWO RODRIGUES, is a 24 F who presents to the office today for milk supply follow up. History provided by the patient. ROS ROS Const Constitutional: Denies fever(s) or lethargy : Denies nipple discharge Skin Skin/Breast: Denies breast pain, breast skin changes or nipple discharge Details: Using spectra for most of pumping session, q2-3 hours during the day and q3-4 hours at night , getting between 3.5-5 oz per pumping session (usually getting 4-5 oz), formula use is decreasing, is not having to supplement daily, per patient smaller flange size is feeling/fitting better, power pumping on occasion - states not consistently Exam Assessment Baby Feeding History Is your baby latching onto the breast: No Breast Pumping Type of Breast Pump: Spectra, MomCozy Frequency: Q2-4 hours Amount: 3.5-5 oz Goals Breast Feeding Goals: To provide as much breastmilk as possible Exam Const General: comfortable and no acute distress Orientation: alert and oriented x3 Resp Effort Inspection: normal respiratory effort Skin General: no rashes or lesions noted Psych Appearance: grossly normal Mental Status: mental status grossly normal Affect: normal affect Assessment and Plan Assessment and Plan (1) Hypogalactia: Plan: Milk supply improving with increased pumping sessions and smaller flange size. Not having to supplement formula daily. Educated on herbal supplementation, brewers yeast, oatmeal, coconut water. Provided with recipes. Follow up with PRN. (2) Care and examination of lactating mother: Plan: Plan as above. Coding Level of Care Code Off vis,est,level 4 Diagnoses Hypogalactia O92.4 Care and examination of lactating mother Z39.1 Time Spent (min) 30 08/27/24 1512 Date Cintia Thorpe NP DOUGH MIXING MACHINE OPERATOR-Mayela Cosigner Signature: Date (if applicable) CC: Normal [facility] MR/BMS.BBCon 08-08-2024 MR/BMS.FARRUKHC [facility] [address] [place] [address] OFFICE VISIT Date of Service: 08/08/24 MR#: [id number] Acct: [id number] Name: RAVIKWADWOALEJANDRA LORENZO Rep #: [id number] : 2000 Provider: Cintia Thorpe NP Age/Sex: 24/F Location: [facility] Status: Signed Intake Vital Signs 06/25/24 10:04 08/08/24 09:41 Height 5 ft 2 in 5 ft 2 in Intake Visit Reasons: INCREASE SUPPLY QUESTIONS Allergies shellfish derived Allergy (Severe, Verified 06/16/24 19:28) Hives levetiracetam (From Keppra) Adverse Reaction (Severe, Verified 06/16/24 19:28) Hives sumatriptan (From Imitrex) Adverse Reaction (Unknown, Verified 06/16/24 19:28) Other PFSH PFSH Medical History (Updated 06/27/24 @ 00:02 by Eva Charles) Muscle tremor Headache Gestational HTN Asthma Migraine H pylori ulcer Pneumonia Hives UTI (urinary tract infection) Asthma Surgical History (Updated 06/16/24 @ 20:28 by Virginia Cordon) History of surgery [place] teeth extracted H/O knee surgery Family History Sister Asthma Grandfather Cancer lung Grandmother Diabetes Parkinson disease Alzheimer disease Aunt Diabetes Uncle Diabetes Mother Hypertension Thyroid disorder Father Hypertension Grandfather Kidney disease Social History household members: spouse current occupational status: employed 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[employer] Smoking Status: Never smoker Electronic Cigarette Use: not used second hand exposure: No alcohol intake: current alcohol intake frequency: a few times a month substance use type: does not use what type of physical activity do you participate in: walking frequency: 3-4 times per week do you feel safe at home: Yes History 1 Elective abortions Hx Para 1 Spontaneous abortions Hx # Term Pregnancies Ectopic pregnancies Hx # Pregnancies Multiple births # of living children 1 HPI HPI HPI: KWADWO RODRIGUES, is a 24 F who presents to the office today for ROS ROS Const Constitutional: Denies fever(s) or lethargy : Denies nipple discharge Skin Skin/Breast: Denies breast pain, breast skin changes or nipple discharge Details: bottle feeding, concerns with milk supply, pumping q 3-5 hours (her goal is q 3 hours), average patient is pumping 3-5 oz (most of that is from right side), Spectra and MomCozy, baby is taking 4 oz q 3-4 hours, baby is taking 4-8 oz of sensitive formula per day, concerns with baby stooling/symptoms, would like to increase supply and decrease formula use Exam Maternal Assessment Breast Assessment Bilateral Breasts: Full Nipple Assessment Bilateral Nipples: Everted Areolar Tissue Areolar Tissue: Pliable Assessment Baby Feeding History Is your baby latching onto the breast: No Supplements Supplement Type:: Expressed milk Frequency: q3-4 hours Amount: 4 oz Breast Pumping Type of Breast Pump: Terabitz, MomCozy Frequency: q3-5 hours Amount: 3-5 oz Reason for supplements or pumping:: Baby not latching well, maternal choice to pump and feed Goals Breast Feeding Goals: To provide as much breastmilk as possible Exam Const General: comfortable and no acute distress Orientation: alert and oriented x3 Chest Breast inspection: normal inspection of the breasts Breast palpation: normal palpation of the breasts Resp Effort Inspection: normal respiratory effort Skin General: no rashes or lesions noted Psych Appearance: grossly normal Mental Status: mental status grossly normal Affect: normal affect Assessment and Plan Assessment and Plan (1) Hypogalactia: Plan: Plan to pump q 2-3 hours, plan to decrease flange size. Educated on pump settings and power pumping. Follow up scheduled or call sooner as needed. (2) Care and examination of lactating mother: Plan: Educated on infant massage, interventions for gas discomfort for baby. Coding Level of Care Code Off vis,est,level 4 Diagnoses Hypogalactia O92.4 Care and examination of lactating mother Z39.1 Time Spent (min) 30 08/12/24 1305 Date Cintia Thorpe NP DOUGH MIXING MACHINE OPERATOR-C Cosigner Signature: Date (if applicable) CC: Normal [facility] Comprehensive metabolic 2000 panelon 06-11-2024 Albumin [Mass/Vol] 3.7 g/dL Low 3.9 - 4.9 g/dL Cl [facility] ALP [Catalytic activity/Vol] 159 U/L High 34 - 123 U/L [facility] ALT [Catalytic activity/Vol] 15 U/L 7 - 38 U/L [facility] Anion gap [Moles/Vol] 10 mmol/L 8 - 15 mmol/L [facility] AST [Catalytic activity/Vol] 14 U/L 13 - 35 U/L [facility] Bilirubin [Mass/Vol] 0.4 mg/dL 0.2 - 1 .3 mg/dL [facility] Calcium [Mass/Vol] 9.6 mg/dL 8.5 - 10. 2 mg/dL [facility] Chloride [Moles/Vol] 106 mmol/L 98 - 10 7 mmol/L [facility] CO2 [Moles/Vol] 22 mmol/L 22 - 30 mmol/L [facility] Creatinine [Mass/Vol] 0.76 mg/dL 0.58 - 0.96 mg/dL [facility] GFR/1.73 sq M.predicted among non-blacks MDRD (S/P/Bld) [Vol rate/Area] 112 mL/min/{1.73_m2} - PINF [facility] Comment on above: Estimated Glomerular Filtration Rate (eGFR) is calculated using the 2020 CKD-EPI creatinine equation. This equation utilizes serum creatinine, sex, and age as parameters. The creatinine assay has traceable calibration to isotope dilution-mass spectrometry. Refer to KDIGO guidelines for clinical interpretation. In patients with unstable renal function, e.g. those with acute kidney injury, the eGFR may not accurately reflect actual GFR. Glucose [Mass/Vol] 82 mg/dL 74 - 99 mg/dL [facility] Comment on above: The [place] Diab[employer] Association (ADA) provides guidance for cutoff values for fasting glucose and random glucose. The ADA defines fasting as no caloric intake for at least 8 hours. Fasting plasma glucose results between 100 to 125 mg/dL indicate increased risk for diabetes (prediabetes). Fasting plasma glucose results greater than or equal to 126 mg/dL meet the criteria for diagnosis of diabetes. In the absence of unequivocal hyperglycemia, results should be confirmed by repeat testing. In a patient with classic symptoms of hyperglycemia or hyperglycemic crisis, random plasma glucose results greater than or equal to 200 mg/dL meet the criteria for diagnosis of diabetes. Reference: Standards of Medical Care in Diabetes 2016, [place] [employer]. Diabetes Care. 2016.39(Suppl 1). Interpretation and review of laboratory results Abnormal [facility] Potassium [Moles/Vol] 4.1 mmol/L 3.7 - 5.1 mmol/L [facility] Protein [Mass/Vol] 6.2 g/dL Low 6.3 - 8.0 g/dL Cl [facility] Sodium [Moles/Vol] 138 mmol/L 136 - 144 mmol/L [facility] Urea nitrogen [Mass/Vol] 5 mg/dL Low 7 - 21 mg/dL [facility] URINE OB DIP B/Oon 4 Glucose Ql (U) Negative Neg mg/dL [facility] Interpretation and review of laboratory results Normal [facility] Protein.monoclonal (U) [Mass/Vol] Negative Neg mg/dL [facility] Examination level ultrasound on 06-10-2024 [facility] Radiology Study observation (narrative) [facility] URINE OB DIP B/Oon 4 Glucose Ql (U) Negative Neg mg/dL [facility] Interpretation and review of laboratory results Normal [facility] Protein.monoclonal (U) [Mass/Vol] Negative Neg mg/dL [facility] URINE OB DIP B/Oon 4 Glucose Ql (U) Negative Neg mg/dL [facility] Interpretation and review of laboratory results Normal [facility] Protein.monoclonal (U) [Mass/Vol] Negative Neg mg/dL [facility] CBC panel Auto (Bld)on 05-31 Erythrocyte distribution width (RBC) [Ratio] 13.2 % 11.5 - 15.0 % [facility] Hematocrit (Bld) [Volume fraction] 31.1 % Low 36.0 - 46.0 % [facility] Hemoglobin (Bld) [Mass/Vol] 10.7 g/dL Low 11.5 - 15.5 g/dL [facility] Interpretation and review of laboratory results Abnormal [facility] MCH (RBC) [Entitic mass] 33.2 pg 26.0 - 34.0 pg [facility] MCHC (RBC) [Mass/Vol] 34.4 g/dL 30.5 - 36.0 g/dL [facility] MCV (RBC) [Entitic vol] 96.6 fL 80.0 - 100.0 fL [facility] Nucleated RBC (Bld) [#/Vol] NINF [facility] Platelet mean volume (Bld) [Entitic vol] 11.5 fL 9.0 - 12.7 fL [facility] Platelets (Bld) [#/Vol] 178 10*3/uL [facility] RBC (Bld) [#/Vol] 3.22 10*6/uL Low 3.90 - 5.2 0 m/uL [facility] WBC (Bld) [#/Vol] 11.60 10*3/uL [facility] Comprehensive metabolic 2000 panelOrdered By: Fifi Toledo on 05-31-2024 Albumin [Mass/Vol] 3.5 g/dL Low 3.9 - 4.9 g/dL Cl [facility] ALP [Catalytic activity/Vol] 127 U/L High 34 - 123 U/L [facility] ALT [Catalytic activity/Vol] 11 U/L 7 - 38 U/L [facility] Anion gap [Moles/Vol] 7 mmol/L Low 8 - 15 mmol/L [facility] AST [Catalytic activity/Vol] 12 U/L Low 13 - 35 U/L [facility] Bilirubin [Mass/Vol] 0.5 mg/dL 0.2 - 1 .3 mg/dL [facility] Calcium [Mass/Vol] 9.5 mg/dL 8.5 - 10. 2 mg/dL [facility] Chloride [Moles/Vol] 107 mmol/L 98 - 10 7 mmol/L [facility] CO2 [Moles/Vol] 24 mmol/L 22 - 30 mmol/L [facility] Creatinine [Mass/Vol] 0.67 mg/dL 0.58 - 0.96 mg/dL [facility] GFR/1.73 sq M.predicted among non-blacks MDRD (S/P/Bld) [Vol rate/Area] 125 mL/min/{1.73_m2} - PINF [facility] Comment on above: Estimated Glomerular Filtration Rate (eGFR) is calculated using the 2020 CKD-EPI creatinine equation. This equation utilizes serum creatinine, sex, and age as parameters. The creatinine assay has traceable calibration to isotope dilution-mass spectrometry. Refer to KDIGO guidelines for clinical interpretation. In patients with unstable renal function, e.g. those with acute kidney injury, the eGFR may not accurately reflect actual GFR. Glucose [Mass/Vol] 75 mg/dL 74 - 99 mg/dL [facility] Comment on above: The [place] Diab[employer] Association (ADA) provides guidance for cutoff values for fasting glucose and random glucose. The ADA defines fasting as no caloric intake for at least 8 hours. Fasting plasma glucose results between 100 to 125 mg/dL indicate increased risk for diabetes (prediabetes). Fasting plasma glucose results greater than or equal to 126 mg/dL meet the criteria for diagnosis of diabetes. In the absence of unequivocal hyperglycemia, results should be confirmed by repeat testing. In a patient with classic symptoms of hyperglycemia or hyperglycemic crisis, random plasma glucose results greater than or equal to 200 mg/dL meet the criteria for diagnosis of diabetes. Reference: Standards of Medical Care in Diabetes 2016, [place] [employer]. Diabetes Care. 2016.39(Suppl 1). Interpretation and review of laboratory results Abnormal [facility] Potassium [Moles/Vol] 3.3 mmol/L Low 3.7 - 5.1 mmol/L [facility] Protein [Mass/Vol] 5.6 g/dL Low 6.3 - 8.0 g/dL Cl [facility] Sodium [Moles/Vol] 138 mmol/L 136 - 144 mmol/L [facility] Urea nitrogen [Mass/Vol] 7 mg/dL 7 - 21 mg/dL [facility] No Panel InformationOrdered By: Fifi Toledo on 05-31-2024 [facility] URIC ACIDon 05-31-2024 Urate [Mass/Vol] 5.1 mg/dL 2.5 - 6.6 mg/dL [facility] URINE OB DIP B/Oon 4 Glucose Ql (U) Negative Neg mg/dL [facility] Interpretation and review of laboratory results Normal [facility] Protein.monoclonal (U) [Mass/Vol] Negative Neg mg/dL [facility] Urate [Mass/Vol]on 4 Interpretation and review of laboratory results Normal [facility] CBC W Auto Differential pane l (Bld)on 05-23-2024 Basophils (Bld) [#/Vol] [facility] Basophils/100 WBC (Bld) 0.2 % [facility] Differential cell count method Nom (Bld) Auto [facility] Eosinophils (Bld) [#/Vol] 0.05 10*3/uL [facility] Eosinophils/100 WBC (Bld) 0.5 % [facility] Erythrocyte distribution width (RBC) [Ratio] 13.1 % 11.5 - 15.0 % [facility] Hematocrit (Bld) [Volume fraction] 31.9 % Low 36.0 - 46.0 % [facility] Hemoglobin (Bld) [Mass/Vol] 11.2 g/dL Low 11.5 - 15.5 g/dL [facility] Immature granulocytes (Bld) [#/Vol] 0.09 10*3/uL NINF [facility] Immature granulocytes/100 WBC (Bld) 0.8 % [facility] Interpretation and review of laboratory results Abnormal [facility] Lymphocytes (Bld) [#/Vol] 1.83 10*3/uL [facility] Lymphocytes/100 WBC (Bld) 17.2 % [facility] MCH (RBC) [Entitic mass] 33.6 pg 26.0 - 34.0 pg [facility] MCHC (RBC) [Mass/Vol] 35.1 g/dL 30.5 - 36.0 g/dL [facility] MCV (RBC) [Entitic vol] 95.8 fL 80.0 - 100.0 fL [facility] Monocytes (Bld) [#/Vol] 0.96 10*3/uL High [facility] Monocytes/100 WBC (Bld) 9.0 % [facility] Neutrophils (Bld) [#/Vol] 7.72 10*3/uL High [facility] Neutrophils/100 WBC (Bld) 72.3 % [facility] Nucleated RBC (Bld) [#/Vol] [facility] Nucleated RBC/100 WBC (Bld) [Ratio] 0.0 % /100 WBC [facility] Platelet mean volume (Bld) [Entitic vol] 11.2 fL 9.0 - 12.7 fL [facility] Platelets (Bld) [#/Vol] 168 10*3/uL [facility] RBC (Bld) [#/Vol] 3.33 10*6/uL Low 3.90 - 5.2 0 m/uL [facility] WBC (Bld) [#/Vol] 10.67 10*3/uL [facility] Comprehensive metabolic 2000 panelOrdered By: Fifi Toledo on 05-23-2024 Albumin [Mass/Vol] 3.6 g/dL Low 3.9 - 4.9 g/dL [facility] ALP [Catalytic activity/Vol] 127 U/L High 34 - 123 U/L [facility] ALT [Catalytic activity/Vol] 12 U/L 7 - 38 U/L [facility] Anion gap [Moles/Vol] 7 mmol/L Low 8 - 15 mmol/L [facility] AST [Catalytic activity/Vol] 14 U/L 13 - 35 U/L [facility] Bilirubin [Mass/Vol] 0.3 mg/dL 0.2 - 1 .3 mg/dL [facility] Calcium [Mass/Vol] 9.3 mg/dL 8.5 - 10. 2 mg/dL [facility] Chloride [Moles/Vol] 108 mmol/L High 98 - 10 7 mmol/L [facility] CO2 [Moles/Vol] 22 mmol/L 22 - 30 mmol/L [facility] Creatinine [Mass/Vol] 0.58 mg/dL 0.58 - 0.96 mg/dL [facility] GFR/1.73 sq M.predicted among non-blacks MDRD (S/P/Bld) [Vol rate/Area] 129 mL/min/{1.73_m2} - PINF [facility] Comment on above: Estimated Glomerular Filtration Rate (eGFR) is calculated using the 2020 CKD-EPI creatinine equation. This equation utilizes serum creatinine, sex, and age as parameters. The creatinine assay has traceable calibration to isotope dilution-mass spectrometry. Refer to KDIGO guidelines for clinical interpretation. In patients with unstable renal function, e.g. those with acute kidney injury, the eGFR may not accurately reflect actual GFR. Glucose [Mass/Vol] 101 mg/dL High 74 - 99 mg/dL [facility] Comment on above: The [place] Di[employer] Association (ADA) provides guidance for cutoff values for fasting glucose and random glucose. The ADA defines fasting as no caloric intake for at least 8 hours. Fasting plasma glucose results between 100 to 125 mg/dL indicate increased risk for diabetes (prediabetes). Fasting plasma glucose results greater than or equal to 126 mg/dL meet the criteria for diagnosis of diabetes. In the absence of unequivocal hyperglycemia, results should be confirmed by repeat testing. In a patient with classic symptoms of hyperglycemia or hyperglycemic crisis, random plasma glucose results greater than or equal to 200 mg/dL meet the criteria for diagnosis of diabetes. Reference: Standards of Medical Care in Diabetes 2016, [place] [employer]. Diabetes Care. 2016.39(Suppl 1). Interpretation and review of laboratory results Abnormal [facility] Potassium [Moles/Vol] 3.9 mmol/L 3.7 - 5.1 mmol/L [facility] Protein [Mass/Vol] 5.8 g/dL Low 6.3 - 8.0 g/dL Cl [facility] Sodium [Moles/Vol] 137 mmol/L 136 - 144 mmol/L [facility] Urea nitrogen [Mass/Vol] 5 mg/dL Low 7 - 21 mg/dL [facility] URIC ACIDon 05-23-2024 Urate [Mass/Vol] 4.2 mg/dL 2.5 - 6.6 mg/dL [facility] URINE OB DIP B/Oon 4 Glucose Ql (U) Negative Neg mg/dL [facility] Interpretation and review of laboratory results Normal [facility] Protein.monoclonal (U) [Mass/Vol] Negative Neg mg/dL [facility] Urate [Mass/Vol]on 4 Interpretation and review of laboratory results Normal [facility] UA DIP, URINE (POC)on 2023 BILIRUBIN UA (POCT) Negative Negative [facility] CLARITY UA (POCT) Clear [facility] COLOR UA (POCT) Yellow [facility] GLUCOSE UA (POCT) Negative Negative mg/dL [facility] Hemoglobin Ql (U) Trace-intact Abnormal Negative [facility] Interpretation and review of laboratory results Abnormal [facility] KETONE UA (POCT) Negative Negative mg/dL [facility] LEUKOCYTES UA (POCT) Trace Abnormal Negative [facility] NITRITE UA (POCT) Negative Negative [facility] PH UA (POCT) 7.0 4.5 - 8.0 [facility] Protein Ql (U) Trace Abnormal Negative mg/dL [facility] SPECIFIC GRAVITY UA (POCT) 1.025 1.005 - 1.030 [facility] UROBILINOGEN UA (POCT) 1.0 Normal E.U./dL [facility] Location:[facility], [address], [place], [address] [facility] POINT OF CARE [facility] CBC panel Auto (Bld)on 05-15 Erythrocyte distribution width (RBC) [Ratio] 12.6 % Normal 11.5-15.0 [facility] Comment on above: Order Comment: Speci men Type: BLOOD SPECIMENOrdering Facility: [facility] Address: [address] [place] [address] Performed By: #### 5 8410-2 ####[facility] LABORATORYCLIA [id number] [address] OF [facility] Hematocrit (Bld) [Volume fraction] 31.5 % Low 36.0-46.0 [facility] Comment on above: Order Comment: Speci men Type: BLOOD SPECIMENOrdering Facility: [facility] Address: [address] [place] [address] Performed By: #### 5 8410-2 ####[facility] LABORATORYCLIA [id number] [address] [place] Hemoglobin (Bld) [Mass/Vol] 11.0 g/dL Low 11.5-15.5 [facility] Comment on above: Order Comment: Speci men Type: BLOOD SPECIMENOrdering Facility: [facility] Address: [address] [place] [address] Performed By: #### 5 8410-2 ####[facility] LABORATORYCLIA [id number] [address] [place] OF [facility] MCH (RBC) [Entitic mass] 34.2 pg High 26.0-34.0 [facility] Comment on above: Order Comment: Speci men Type: BLOOD SPECIMENOrdering Facility: [facility] Address: [address] [place] [address] Performed By: #### 5 8410-2 ####[facility] LABORATORYCLIA [id number] [address] [place] MCHC (RBC) [Mass/Vol] 34.9 g/dL Normal 30.5-36.0 [facility] Comment on above: Order Comment: Speci men Type: BLOOD SPECIMENOrdering Facility: [facility] Address: [address] [place] [address] Performed By: #### 5 8410-2 ####[facility] LABORATORYCLIA [id number] [address] [place] MCV (RBC) [Entitic vol] 97.8 fL Normal 80.0-100.0 [facility] Comment on above: Order Comment: Speci men Type: BLOOD SPECIMENOrdering Facility: [facility] Address: [address] [place] [address] Performed By: #### 5 8410-2 ####[facility] LABORATORYCLIA [id number] [address] [place] Nucleated RBC (Bld) [#/Vol] 10*3/uL Normal <0.01 [facility] Comment on above: Order Comment: Speci men Type: BLOOD SPECIMENOrdering Facility: [facility] Address: [address] [place] [address] Performed By: #### 5 8410-2 ####[facility] LABORATORYCLIA [id number] [address] [place] Platelet mean volume (Bld) [Entitic vol] 11.4 fL Normal 9.0-12.7 [facility] Comment on above: Order Comment: Speci men Type: BLOOD SPECIMENOrdering Facility: [facility] Address: [address] [place] [address] Performed By: #### 5 8410-2 ####[facility] LABORATORYCLIA [id number] [address] [place] Platelets (Bld) [#/Vol] 178 10*3/uL Normal 150-400 [facility] Comment on above: Order Comment: Speci men Type: BLOOD SPECIMENOrdering Facility: [facility] Address: [address] [place] [address] Performed By: #### 5 8410-2 ####[facility] LABORATORYCLIA [id number] [place] [address] [place] RBC (Bld) [#/Vol] 3.22 10*6/uL Low 3.90-5.20 [facility] Comment on above: Order Comment: Speci men Type: BLOOD SPECIMENOrdering Facility: [facility] Address: [address] [place] [address] Performed By: #### 5 8410-2 ####[facility] LABORATORYCLIA [id number] [place] [address] [place] WBC (Bld) [#/Vol] 11.56 10*3/uL High 3.70-11.00 [facility] Comment on above: Order Comment: Speci men Type: BLOOD SPECIMENOrdering Facility: [facility] Address: [facility] [place] [address] Performed By: #### 5 8410-2 ####[facility] LABORATORYCLIA [id number] [place] [address] [facility] CNPNon 05-15-2024 CNPN Telephone (AKPOB) -------- KWADWO RODRIGUES ([id number]) 2000 [facility] Date Time Provider Department 05/15/24 YESSY SALMERON During your visit today, we recorded the following information about you: Yessy Salmeron DO 05/15/2024 4:17 AM Signed Patient called after leaving OB ED. She stated she started experiencing dizziness, numbness and tingling down both arms 20 minutes after leaving the OB ED. She also reports chest pressure that radiates down both arms in addition to jaw and neck pain. Denies changes in vision or weakness. Denies syncope. Denies contractions, leakage of fluid, VB, or decreased FM. Recommended she present to nearest ED ([facility]) for evaluation. Stated symptoms are likely in reaction to Imitrex but recommended evaluation due to chest pain/pressure. Discussed with Dr. Tonia Salmeron DO PGY-2 Allergies As of Date: 05/15/2024 Noted Allergy Reaction LEVETIRACETAM 12/09/2020 4 - Hives 7 - Swelling SHELLFISH 03/27/2010 4 - Hives Date Reviewed: 05/03/2024 Reviewed by: Gale Son MD - Fully Assessed Prescriptions as of 05/15/2024 - famotidine (PEPCID ORAL) Take by mouth as needed. - acetaminophen (TYLENOL 8 HOUR ORAL) Take by mouth. - 25/iron fum/folic/dha (-1 ORAL) Take by mouth once daily. Problem List As Of Date 05/15/2024 Noted Resolved Asthma, mild intermittent [J45.20] 11/22/2007 Patellar tendinitis of right knee [M76.51] 01/20/2014 11/27/2023 Left lateral knee pain [M25.562] 01/20/2014 11/27/2023 Encounter for supervision of normal first pregn*11/27/2023 Hx of migraines [Z86.69] 11/27/2023 Occasional tremors [R25.1] 11/27/2023 Genetic screening [Z13.79] 12/04/2023 12/26/2023 Rh negative state in antepartum period [O26.899*12/27/2023 Back pain affecting in second trimest*01/13/2024 05/14/2024 Nausea/vomiting in [O21.9] 01/14/2024 05/14/2024 Nephrolithiasis [N20.0] 01/18/2024 Dehydration [E86.0] 01/18/2024 Acute right-sided low back pain without sciatic*04/12/2024 Abdominal pain during in second trime*04/12/2024 05/14/2024 28 weeks gestation of [Z3A.28] 04/19/2024 05/14/2024 Elevated BP without diagnosis of hypertension [*05/14/2024 Encounter Status:Closed by YESSY SALMERON on 05/15/24 Normal [facility] Comprehensive metabolic 2000 panelon 05-15-2024 Albumin [Mass/Vol] 3.4 g/dL Low 3.9-4.9 [facility] Comment on above: Order Comment: Speci men Type: BLOOD SPECIMENOrdering Facility: [facility] Address: [address] [place], [place] [address] Performed By: #### 2 4323-8 ####[facility] LABORATORYCLIA [id number] [address] ALP [Catalytic activity/Vol] 128 U/L High 34-123 [facility] Comment on above: Order Comment: Speci men Type: BLOOD SPECIMENOrdering Facility: [facility] Address: [address] [place] [address] Performed By: #### 2 4323-8 ####[facility] LABORATORYCLIA [id number] [address] ALT With P-5'-P [Catalytic activity/Vol] 12 U/L Normal 7-38 [facility] Comment on above: Order Comment: Speci men Type: BLOOD SPECIMENOrdering Facility: [facility] Address: [address] [place] [address] Performed By: #### 2 4323-8 ####[facility] LABORATORYCLIA [id number] [address] Anion gap [Moles/Vol] 14 mmol/L Normal 8-15 [facility] Comment on above: Order Comment: Speci men Type: BLOOD SPECIMENOrdering Facility: [facility] Address: [address] [place] [address] Performed By: #### 2 4323-8 ####[facility] LABORATORYCLIA [id number] [address] AST With P-5'-P [Catalytic activity/Vol] 16 U/L Normal 13-35 [facility] Comment on above: Order Comment: Speci men Type: BLOOD SPECIMENOrdering Facility: [facility] Address: [address] [place] [address] Performed By: #### 2 4323-8 ####[facility] LABORATORYCLIA [id number] [address] Bilirubin [Mass/Vol] 0.2 mg/dL Normal 0.2-1.3 [facility] Comment on above: Order Comment: Speci men Type: BLOOD SPECIMENOrdering Facility: [facility] Address: [address] [place] [address] Performed By: #### 2 4323-8 ####[facility]ORATORYCLIA [id number] [place] [address] [place] Calcium [Mass/Vol] 9.2 mg/dL Normal 8.5-10.2 [facility] Comment on above: Order Comment: Speci men Type: BLOOD SPECIMENOrdering Facility: [facility] Address: [address] [place] [address] Performed By: #### 2 4323-8 ####[facility] LABORATORYCLIA [id number] [place] [address] [place] Chloride [Moles/Vol] 104 mmol/L Normal 98-107 [facility] Comment on above: Order Comment: Speci men Type: BLOOD SPECIMENOrdering Facility: [facility] Address: [address] [place] [address] Performed By: #### 2 4323-8 ####[facility] LABORATORYCLIA [id number] [address] [place] CO2 [Moles/Vol] 20 mmol/L Low 22-30 [facility] Comment on above: Order Comment: Speci men Type: BLOOD SPECIMENOrdering Facility: [facility] Address: [address] [place] [address] Performed By: #### 2 4323-8 ####[facility] LABORATORYCLIA [id number] [address] [place] Creatinine [Mass/Vol] 0.60 mg/dL Normal 0.58-0.96 [facility] Comment on above: Order Comment: Speci men Type: BLOOD SPECIMENOrdering Facility: [facility] Address: [address] [place] [address] Performed By: #### 2 4323-8 ####[facility] LABORATORYCLIA [id number] [address] Creatinine and Glomerular filtration rate.predicted panel (S/P/Bld) 128 mL/min/1.73m??? Normal >=60 [facility] Comment on above: Order Comment: Speci men Type: BLOOD SPECIMENOrdering Facility: [facility] Address: [address] [place] [address] Result Comment: Chi mated Glomerular Filtration Rate (eGFR) is calculated using the 2020 CKD-EPI creatinine equation. This equation utilizes serum creatinine, sex, and age as parameters. The creatinine assay has traceable calibration to isotope dilution-mass spectrometry. Refer to KDIGO guidelines for clinical interpretation. In patients with unstable renal function, e.g. those with acute kidney injury, the eGFR may not accurately reflect actual GFR. Performed By: #### 2 4323-8 ####[facility] LABORATORYCLIA [id number] [place] [address] [place] Glucose [Mass/Vol] 106 mg/dL High 74-99 [facility] Comment on above: Order Comment: Suyapa anna Type: BLOOD SPECIMENOrdering Facility: [facility] Address: [address] [place] [address] Result Comment: The [place] Diabetes Association (ADA) provides guidance for cutoff values for fasting glucose and random glucose. The ADA defines fasting as no caloric intake for at least 8 hours. Fasting plasma glucose results between 100 to 125 mg/dL indicate increased risk for diabetes (prediabetes). Fasting plasma glucose results greater than or equal to 126 mg/dL meet the criteria for diagnosis of diabetes. In the absence of unequivocal hyperglycemia, results should be confirmed by repeat testing. In a patient with classic symptoms of hyperglycemia or hyperglycemic crisis, random plasma glucose results greater than or equal to 200 mg/dL meet the criteria for diagnosis of diabetes. Reference: Standards of Medical Care in Diabetes 2016, [place] [employer]. Diabetes Care. 2016.39(Suppl 1). Performed By: #### 2 4323-8 ####[facility] LABORATORYCLIA [id number] [place] [id number] [place] Potassium [Moles/Vol] 3.4 mmol/L Low 3.7-5.1 [facility] Comment on above: Order Comment: Suyapa anna Type: BLOOD SPECIMENOrdering Facility: [facility] Address: [address] [place] [id number] Performed By: #### 2 4323-8 ####[facility] LABORATORYCLIA [id number] [place] [address] [place] Protein [Mass/Vol] 6.1 g/dL Low 6.3-8.0 [facility] Comment on above: Order Comment: Speci men Type: BLOOD SPECIMENOrdering Facility: [facility] Address: [address] [place] [address] Performed By: #### 2 4323-8 ####[facility] LABORATORYCLIA [id number] [place] [id number] [place] Sodium [Moles/Vol] 138 mmol/L Normal 136-144 [facility] Comment on above: Order Comment: Speci men Type: BLOOD SPECIMENOrdering Facility: [facility] Address: [address] [place] [address] Performed By: #### 2 4323-8 ####[facility] LABORATORYCLIA [id number] [address] [place] Urea nitrogen [Mass/Vol] 6 mg/dL Low 7-21 [facility] Comment on above: Order Comment: Speci men Type: BLOOD SPECIMENOrdering Facility: [facility] Address: [address] [place] [address] Performed By: #### 2 4323-8 ####[facility] LABORATORYCLIA [id number] [place] [id number] [place] Prot/Creat Uron 05-15-2024 Protein/Creatinine (U) [Mass ratio] 0.12 mg/mg Normal <0.15 [facility] Comment on above: Order Comment: Speci men Type: URINE SPECIMENOrdering Facility: [facility] Address: [address] [place] [address] Result Comment: Adul t Proteinuria Categories: <0.15 mg/mg is considered normal to mildly increased 0.15 - 0.50 mg/mg is considered moderately increased >0.50 mg/mg is considered severely increased KDIGO. (2013). KDIGO 2012 Clinical Practice Guideline for the Evaluation and Management of Chronic Kidney Disease. Official Journal of the International Society of Nephrology, 3(1), 1-150. Performed By: #### 2 890-2 ####[facility] LABORATORYCLIA [id number] [address] Protein/Creatinine (U) [Mass ratio]on 05-15-2024 Creatinine (U) [Mass/Vol] 77.0 mg/dL Normal 42.2-237.9 [facility] Comment on above: Order Comment: Speci men Type: URINE SPECIMENOrdering Facility: [facility] Address: [address] [place] [address] Performed By: #### 2 890-2 ####[facility] LABORATORYCLIA [id number] [address] Protein (U) [Mass/Vol] 9 mg/dL Normal 0-20 [facility] Comment on above: Order Comment: Speci men Type: URINE SPECIMENOrdering Facility: [facility] Address: [address] [place] [address] Performed By: #### 2 890-2 ####[facility] LABORATORYCLIA [id number] [address] Examination level ultrasound on 02-14-2024 [facility] Bacteria Ur Culton 4 Bacteria identified Cx Nom (U) CULTURE, URINE: 10,000-<50,000 CFU/ml Normal Urogenital Brody Normal [facility] Comment on above: Performed By: #### 6 30-4 #### [facility] CLIA [id number] [address] [place] CNPNon 01-15-2024 CNPN Telephone (AKPOB) -------- KWADWO RODRIGUES ([id number]) 2000 [facility] Date Time Provider Department 01/15/24 ANA WILLIS During your visit today, we recorded the following information about you: Ana Willis DO 01/15/2024 10:09 AM Signed Patient seen in OB ED on 01/12 for flank pain and urine culture was sent to rule out UTI. Urine culture results reviewed and with normal brody. Resident call patient to review and discuss that antibiotics not indicated. She verbalized understanding. Ana Willis DO Obstetrics and Gynecology PGY-3 Allergies As of Date: 01/15/2024 Noted Allergy Reaction LEVETIRACETAM 12/09/2020 4 - Hives 7 - Swelling SHELLFISH 03/27/2010 4 - Hives Date Reviewed: 01/13/2024 Reviewed by: Clair Mitchell, RN - Fully Assessed Reason for Visit: Results [95] Prescriptions as of 01/15/2024 - cyclobenzaprine (FLEXERIL) 10 mg tablet Take 1 tablet by mouth three times a day as needed. - cephALEXin (KEFLEX) 500 mg capsule Take 1 capsule by mouth four times daily for 5 days. - Amoxicillin 500 mg tablet take 1 tablet by mouth twice a day as directed - aspirin, enteric coated (ASPIRIN, ENTERIC COATED) 81 mg EC tablet Take 1 tablet by mouth once daily. - 25/iron fum/folic/dha (-1 ORAL) Take by mouth. - folic acid 800 mcg tablet Take 1 tablet by mouth once daily. Problem List As Of Date 01/15/2024 Noted Resolved Asthma, mild intermittent [J45.20] 11/22/2007 Patellar tendinitis of right knee [M76.51] 01/20/2014 11/27/2023 Left lateral knee pain [M25.562] 01/20/2014 11/27/2023 Encounter for supervision of normal first pregn*11/27/2023 Hx of migraines [Z86.69] 11/27/2023 Occasional tremors [R25.1] 11/27/2023 Genetic screening [Z13.79] 12/04/2023 12/26/2023 Rh negative state in antepartum period [O26.899*12/27/2023 Abdominal pain affecting [O26.899, R1*01/13/2024 Nausea/vomiting in [O21.9] 01/14/2024 Encounter Status:Closed by ANA WILLIS on 01/15/24 Normal [facility] Bacteria Ur Culton Bacteria identified Cx Nom (U) CULTURE, URINE: 10,000-<50,000 CFU/ml Normal Urogenital Brody Normal [facility] Comment on above: Performed By: #### 6 30-4 #### [facility] CLIA [id number] [address] STATES OF [facility] US KIDNEY/BLADDERon 01-13-20 24 US KIDNEY/BLADDER * * *Final Report* * * DATE OF EXAM: Jan 13 2024 2:12PM [facility] 105 - US KIDNEY/BLADDER / PROCEDURE REASON: Hematuria, gross/macroscopic * * * * Physician Interpretation * * * * EXAMINATION: RENAL ULTRASOUND CLINICAL HISTORY: Microscopic hematuria. TECHNIQUE: Sonography of the kidneys and urinary bladder was performed. Images were obtained and stored in a permanent archive. MQ: UR_1 COMPARISON: None RESULT: Right Kidney: -Renal length: 10.3 cm -Parenchyma: Normal parenchymal echogenicity. Normal parenchymal thickness. -Collecting system: No hydronephrosis. -Calculus: No echogenic, shadowing calculus. -Lesion: None. Left Kidney: -Renal length: 10.9 cm -Parenchyma: Normal parenchymal echogenicity. Normal parenchymal thickness. -Collecting system: No hydronephrosis. -Calculus: No echogenic, shadowing calculus. -Lesion: None. Bladder: Normal sonographic appearance. Patient unable to void. IMPRESSION: NORMAL SONOGRAPHIC APPEARANCE OF KIDNEYS AND BLADDER. PATIENT UNABLE TO VOID Hydraulic Plumber: [facility] Transcribe Date/Time: Jan 13 2024 2:50P Dictated by : GAMALIEL JARRELL MD This examination was interpreted and the report reviewed and electronically signed by: GAMALIEL JARRELL MD on Jan 13 2024 2:53PM EST [id number] Normal [facility] Urinalysis complete panel (U )on 01-13-2024 Bilirubin Ql (U) Negative Normal Negative [facility] Comment on above: Order Comment: Speci men Type: URINE SPECIMENOrdering Facility: [facility] Address: [address] [place] [address] Performed By: #### 2 4356-8 ####[facility] LABORATORYCLIA [id number] [address] [place] Clarity (Unsp spec) Turbid Abnormal Clear [facility] Comment on above: Order Comment: Speci men Type: URINE SPECIMENOrdering Facility: [facility] Address: [address] [place] [address] Performed By: #### 2 4356-8 ####[facility] LABORATORYCLIA [id number] [address] [place] Color (U) Light Yellow Normal yellow [facility] Comment on above: Order Comment: Speci men Type: URINE SPECIMENOrdering Facility: [facility] Address: [address] [place] [address] Performed By: #### 2 4356-8 ####[facility] LABORATORYCLIA [id number] [address] Epithelial cells LM.HPF (Urine sed) [#/Area] Few Normal [facility] Comment on above: Order Comment: Speci men Type: URINE SPECIMENOrdering Facility: [facility] Address: [address] [place] [address] Performed By: #### 2 4356-8 ####[facility] LABORATORYCLIA [id number] [address] Glucose Test strip (U) [Mass/Vol] Negative Normal Trace, Negative [facility] Comment on above: Order Comment: Speci men Type: URINE SPECIMENOrdering Facility: [facility] Address: [address] [place] [address] Performed By: #### 2 4356-8 ####[facility] LABORATORYCLIA [id number] [address] [place] Hemoglobin Ql (U) 3+ Abnormal Negative, Trace [facility] Comment on above: Order Comment: Speci men Type: URINE SPECIMENOrdering Facility: [facility] Address: [address] [place] [address] Performed By: #### 2 4356-8 ####[facility] LABORATORYCLIA [id number] [address] [place] Ketones Ql (U) Negative Normal Negative, Trace [facility] Comment on above: Order Comment: Speci men Type: URINE SPECIMENOrdering Facility: [facility] Address: [address] [place] [address] Performed By: #### 2 4356-8 ####[facility] LABORATORYCLIA [id number] [address] Leukocyte esterase Test strip Ql (U) Negative Normal Negative, 25 Daija/uL [facility] Comment on above: Order Comment: Speci men Type: URINE SPECIMENOrdering Facility: [facility] Address: [address] [place] [address] Performed By: #### 2 4356-8 ####[facility] LABORATORYCLIA [id number] [address] Nitrite Ql (U) Negative Normal Negative [facility] Comment on above: Order Comment: Speci men Type: URINE SPECIMENOrdering Facility: [facility] Address: [address] [place] [address] Performed By: #### 2 4356-8 ####[facility] LABORATORYCLIA [id number] [address] pH (U) 7.0 [pH] Normal 5.0-8.0 [facility] Comment on above: Order Comment: Speci men Type: URINE SPECIMENOrdering Facility: [facility] Address: [address] [place] [address] Performed By: #### 2 4356-8 ####[facility] LABORATORYCLIA [id number] [address] Protein (U) [Mass/Vol] Negative Normal Trace, Negative [facility] Comment on above: Order Comment: Speci men Type: URINE SPECIMENOrdering Facility: [facility] Address: [address] [place] [address] Performed By: #### 2 4356-8 ####[facility] LABORATORYCLIA [id number] [address] [place] RBC LM.HPF (Urine sed) [#/Area] 11-25 /HPF Abnormal 0-3 /HPF [facility] Comment on above: Order Comment: Speci men Type: URINE SPECIMENOrdering Facility: [facility] Address: [address] [place] [address] Performed By: #### 2 4356-8 ####[facility] LABORATORYCLIA [id number] [address] STATES OF [facility] Specific gravity (U) [Rel density] 1.009 Normal 1.005-1.030 [facility] Comment on above: Order Comment: Speci men Type: URINE SPECIMENOrdering Facility: [facility] Address: [address] [place] [address] Performed By: #### 2 4356-8 ####[facility] LABORATORYCLIA [id number] [address] [place] Urobilinogen Ql (U) Normal Normal Normal [facility] Comment on above: Order Comment: Speci men Type: URINE SPECIMENOrdering Facility: [facility] Address: [address] [place] [address] Performed By: #### 2 4356-8 ####[facility] LABORATORYCLIA [id number] [address] [place] WBC LM.HPF (Urine sed) [#/Area] 0-5 /HPF Normal 0-5 /HPF [facility] Comment on above: Order Comment: Speci men Type: URINE SPECIMENOrdering Facility: [facility] Address: [address] [place] [address] Performed By: #### 2 4356-8 ####[facility] LABORATORYCLIA [id number] [address] [place] Absolute lymphocyte countOrd ered By: Alex Bravo on 01-12-2024 Lymphocytes Auto (Unsp spec) [#/Vol] 2.34 10*3/uL 0.83-4.51 [facility] Automated lymphocyte count a s percentage of total leukocytesOrdered By: Alex Bravo on 01-12-2024 Lymphocytes/100 WBC Auto (Unsp spec) 20.0 % 19-41 [facility] Basophil percentageOrdered B y: Alexjohn Bravo on 01-12-2024 Basophil percentage 0-5 SEEN /hpf 0-5 [facility] Basophils/100 WBC (Bld) 0.2 % 0-1 [facility] Chloride [Moles/Vol] 109 mmol/L 98-107 [facility] Eosinophils/100 WBC (Bld) 0.9 % 0-5 [facility] Glucose [Mass/Vol] 89 mg/dL 74-106 [facility] Hemoglobin (Bld) [Mass/Vol] 12.1 g/dL 12.0-15.0 [facility] Monocytes/100 WBC (Bld) 8.0 % 0-10 [facility] Neutrophils (Bld) [#/Vol] 8.2 10*3/uL 2.0-7.7 [facility] Neutrophils/100 WBC (Bld) 70.6 % 47-70 [facility] Potassium [Moles/Vol] 3.2 mmol/L 3.5-5.1 [facility] Sodium [Moles/Vol] 136 mmol/L 136-145 [facility] WBC (Bld) [#/Vol] 11.7 10*3/uL 4.4-11.0 [facility] Bilirubin Test strip Ql (U)O rdered By: Alex Bravo on 01-12-2024 Bilirubin Ql (U) Negative Negative [facility] Determination of erythrocyte mean corpuscular volume (MCV)Ordered By: Alexjohn Bravo on 01-12-2024 MCV (RBC) [Entitic vol] 92.3 fL 81-99 [facility] Erythrocyte distribution wid th ratioOrdered By: Alex Bravo on 01-12-2024 Erythrocyte distribution width (RBC) [Ratio] 13.1 % 11.6-14.6 [facility] Erythrocyte distribution wid th standard deviationOrdered By: Alex Bravo on 01-12-2024 Erythrocyte distribution width (RBC) [Entitic vol] 43.3 fL 35.1-43.9 [facility] Hematocrit Auto (Bld) [Volum e fraction]Ordered By: Alexjohn Bravo on 01-12-2024 Hematocrit (Bld) [Volume fraction] 34.9 % 37-47 [facility] Immature granulocytes/100 WB C Auto (Bld)Ordered By: Alex Bravo on 01-12-2024 Immature granulocytes/100 WBC (Bld) 0.300 % 0.0-0.9 [facility] Comment on above: IG% - Immature Granu locytes (promyelocytes, myelocytes and metamyelocytes) > 1% indicates that a LEFT SHIFT is Present. Ketones Test strip Ql (U)Ord ered By: Alex Bravo on 01-12-2024 Ketones Ql (U) 5 mg/dl Negative [facility] Laboratory - Chemistry and C hemistry - challengeOrdered By: Alexjohn Bravo on 01-12-2024 CO2 [Moles/Vol] 19.0 mmol/L 21.0-32.0 [facility] Urea nitrogen/Creatinine [Mass ratio] 9.9 mg/mg 10-20 [facility] - Hematology and Cell countsOrdered By: Alexjohn Bravo on 01-12-2024 MCH (RBC) [Entitic mass] 32.0 pg 27.0-32.0 [facility] MCHC (RBC) [Mass/Vol] 34.7 g/dL 32- [facility] Nucleated RBC/100 WBC (Bld) [Ratio] 0 % 0-5 [facility] Platelet mean volume (Bld) [Entitic vol] 11.4 fL 6.2-12.0 [facility] Platelets (Bld) [#/Vol] 183 10*3/uL 150-450 [facility] Mucus LM Ql (Urine sed)Order ed By: Alex Bravo on 01-12-2024 Mucus Ql (Urine sed) RARE /hpf [facility] Nitrite Test strip Ql (U)Ord ered By: Alex Bravo on 01-12-2024 Nitrite Ql (U) Negative Negative [facility] No Panel InformationOrdered By: Alex Bravo on 01-12-2024 Urine RBC 5-10 SEEN /hpf 0-5 [facility] Estimated GFR (MDRD) Amer 129 mL/min >60 [facility] Comment on above: GFR Calc Estimated GFR (MDRD) Non-Af Amer 107 mL/min >60 [facility] Comment on above: Non- GFR Calc Protein Test strip Ql (U)Ord ered By: Alex Bravo on 01-12-2024 Protein Ql (U) 30 mg/dl Negative [facility] RBC Auto (Bld) [#/Vol]Ordere d By: Alex Brvao on 01-12-2024 RBC (Bld) [#/Vol] 3.78 10*6/uL 4.2-5.4 [facility] Serum or plasma calcium sowmya urement (mass/volume)Ordered By: Alex Bravo on 01-12-2024 Calcium [Mass/Vol] 9.2 mg/dL 8.5-10.1 [facility] Serum or plasma choriogonado tropin detectionOrdered By: Alex Bravo on 01-12-2024 HCG ( test) Ql Negative [facility] Comment on above: TEST is *P OSITIVE* Serum or plasma choriogonado tropin detectionOrdered By: Sudeep Forrester on 01-12-2024 HCG ( [place]) [place] [address] mIU/mL <4 [facility] Comment on above: hCG levels with Gest ational AgeGestational Age hCG mIU/mL (IU/L)0.2 - 1 week 5 - 501-2 weeks 50 - 5002-3 weeks 100 - 14696-5 weeks 500 - 004099-9 weeks 1000 - 627831-7 weeks 65582 - 100,0006-8 weeks 79563 - 200,0002-3 months 62057 - 100,000 Serum or plasma creatinine m easurement (mass/volume)Ordered By: Alex Bravo on 01-12-2024 Creatinine [Mass/Vol] 0.71 mg/dL 0.55-1.02 [facility] Comment on above: The validity of the calculated GFR & GFRAA in patients over 70 years has not been determined. Clinical correlation is essential. Serum or plasma urea nitroge n measurement (mass/volume)Ordered By: Alex Bravo on 01-12-2024 Urea nitrogen [Mass/Vol] 7 mg/dL 7-18 [facility] Squamous epithelial cells de tection in urine sediment by light microscopyOrdered By: Alex Bravo on 01-12-2024 Epithelial cells.squamous LM Ql (Urine sed) 5-10 SEEN /hpf 5-10 [facility] Thin prep Papanicolaou smear with manual screeningOrdered By: Alex Bravo on 01-12-2024 Thin prep Papanicolaou smear with manual screening 8 03-13 [facility] Urine blood detectionOrdered By: Alex Bravo on 01-12-2024 RBC Ql (U) 50 /ul Negative [facility] Urine clarityOrdered By: Alex Bravo on 01-12-2024 Clarity (U) Sl. Cloudy Clear [facility] Urine color determinationOrd ered By: Alex Bravo on 01-12-2024 Color (U) Yellow Yellow [facility] Urine glucose detectionOrder ed By: Alex Bravo on 01-12-2024 Glucose Ql (U) Normal mg/dl Normal [facility] Urine leukocyte esterase det ection by dipstickOrdered By: Alex Bravo on 01-12-2024 Leukocyte esterase Test strip Ql (U) 100 /ul Negative [facility] Urine pHOrdered By: Alex lopez on 01-12-2024 pH (U) 6.5 [pH] 5.0 - 8.0 [facility] Urine sediment bacteria coun t by microscopy (number/high power field)Ordered By: Alex Bravo on 01-12-2024 Bacteria LM.HPF (Urine sed) [#/Area] 1 /[HPF] None Seen [facility] Urine specific gravity measu rementOrdered By: Alex Bravo on 01-12-2024 Specific gravity (U) [Rel density] 1.020 1.002-1.030 [facility] Urine urobilinogen measureme ntOrdered By: Alex Bravo on 01-12-2024 Urobilinogen Ql (U) 1 mg/dl Normal [facility] nuchal translucency me asured by USon 01-03-2024 [facility] PAP TESTon 12-04-2023 Case Report Gynecologic Cytology Report Case: [id number] Authorizing Provider: Aminah Sanchez APRN.CNM Collected: 11/27/2023 02:29 PM Ordering Location: OB/Gynecology Received: 11/27/2023 04:33 PM First Screen: [place], Radha, CT, ASCP Specimen: Pap Test, ThinPrep, Cervix [facility] Clinical History Routine Exam [facility] HPV Reflex HPV if Atypical [facility] Pap Disclaimer The Pap Smear is a screening test for cervical cancer. False negative results occur with all screening tests, emphasizing the need for rescreening at recommended intervals, and clinical correlation. [facility] PAP Psychology Tech Comment This specimen has be en analyzed by the ThinPrep Imaging System, an automated imaging and review system, which assists the laboratory in evaluating cells on ThinPrep Pap tests. Following automated imaging, selected villagran from every slide are reviewed by a imaging services director. [facility] Performing Lab Technical component, imaging services director screening performed at [facility], [address], [facility] [address] CLIA# [id number] Diagnostic interpretation performed at [facility], [address], [facility] [address] CLIA# [id number] Belly Dump Driver: Scar Clayton M.D. [facility] Specimen Adequacy Satisfactory for interpretation [facility] BACTERIAL VAGINOSIS NAATon 0 11-28-2023 Lactobacillus crispatus+gasseri+petrona senii + Gardnerella vaginalis + Atopobium vaginae rRNA REYNA+probe Ql (Vag fld) Negative Negative for bacterial vaginosis [facility] C. trachomatis+N. gonorrhoea e DNA REYNA+probe Ql (Unsp spec)on 11-28-2023 C. trachomatis rRNA REYNA+probe Ql (Unsp spec) Negative Negative for Chlamydia trachomatis by amplificaton [facility] N. gonorrhoeae rRNA REYNA+probe Ql (Unsp spec) Negative Negative for Neisseria gonorrhoeae by amplification [facility] DOUGLAS/TRICHOMONAS NAATon 0 11-28-2023 C. glabrata RNA REYNA+probe Ql (Vag fld) Negative Negative for Douglas glabrata [facility] Douglas sp DNA REYNA+probe Ql (Vag fld) Negative Negative for Douglas species [facility] T. vaginalis DNA REYNA+probe Ql (Unsp spec) Negative Negative for Trichomonas vaginalis by amplification [facility] URINE CULTUREon 11-28-2023 Bacteria identified Cx Nom (U) 10,000 -<50,000 CFU/ml Normal urogenital brody [facility] POC TOOLING INSPECTOR ULTRASOUNDon 11-27-19 [facility] XR TOE AP/LAT/OBL LEFTon [facility] XR Toes - left 3 Viewson IMPRESSION: POSSIBLE NONDISPLACED FRACTURE THROUGH THE TUFT ON THE LATERAL VIEW. REPEAT FILM RECOMMENDED IF CLINICALLY INDICATED Hydraulic Plumber: SANDY Transcribe Date/Time: May 08 2023 11:07A Dictated by : HEIKE BORGES MD This examination was interpreted and the report reviewed and electronically signed by: HEIKE BORGES MD on May 08 2023 11:10AM EST DIVISION OF RADIOLOGY * * *Final Report* * * DATE OF EXAM: May 08 2023 9:47AM WOX 5268 - XR TOE 3V AP/LAT/OBL LT / PROCEDURE REASON: Toe injury, left, initial encounter * * * * Physician Interpretation * * * * Examination: XR TOE 3V AP/LAT/OBL LT History: Toe injury, left, initial encounter Technique: XR TOE 3V AP/LAT/OBL LT Comparison: None RESULT: No definite evidence of focal bony abnormality. Normal mineralization and alignment. Joint spaces are maintained. Nondisplaced fracture through the tuft cannot be excluded on the lateral view which is suboptimally exposed. DIVISION OF RADIOLOGY Provider, [facility] - 05/08/2023 * * *Final Report* * * DATE OF EXAM: May 08 2023 9:47AM WOX 5268 - XR TOE 3V AP/LAT/OBL LT / PROCEDURE REASON: Toe injury, left, initial encounter * * * * Physician Interpretation * * * * Examination: XR TOE 3V AP/LAT/OBL LT History: Toe injury, left, initial encounter Technique: XR TOE 3V AP/LAT/OBL LT Comparison: None RESULT: No definite evidence of focal bony abnormality. Normal mineralization and alignment. Joint spaces are maintained. Nondisplaced fracture through the tuft cannot be excluded on the lateral view which is suboptimally exposed. IMPRESSION IMPRESSION: POSSIBLE NONDISPLACED FRACTURE THROUGH THE TUFT ON THE LATERAL VIEW. REPEAT FILM RECOMMENDED IF CLINICALLY INDICATED Hydraulic Plumber: SANDY Transcribe Date/Time: May 08 2023 11:07A Dictated by : HEIKE BORGES MD This examination was interpreted and the report reviewed and electronically signed by: HEIKE BORGES MD on May 08 2023 11:10AM EST [facility] Radiology Study observation (narrative) [facility] XR Toes - left 3 ViewsOrdere d By: [facility] Provider on 05-08-2023 [facility] XR Chest PA and Lateralon IMPRESSION: No acute radiographic abnormality. Hydraulic Plumber: SANDY Transcribe Date/Time: Dec 29 2022 9:50P Dictated by : BARBIE POWERS MD This examination was interpreted and the report reviewed and electronically signed by: BARBIE POWERS MD on Dec 29 2022 9:52PM [facility] DIVISION OF RADIOLOGY * * *Final Report* * * DATE OF EXAM: Dec 29 2022 7:04PM WOX 5291 - XR CHEST 2V FRONTAL/LAT / PROCEDURE REASON: cough * * * * Physician Interpretation * * * * EXAMINATION: CHEST RADIOGRAPH (2 VIEW FRONTAL & LATERAL) CLINICAL HISTORY: Cough MQ: XC2_6 EXAM DATE/TIME: 12/29/2022 7:04 PM COMPARISON: 09/03/2009 RESULT: Lines, tubes, and devices: None. Lungs and pleura: No consolidation. No lung mass. No pleural effusion. No pneumothorax. Cardiomediastinal silhouette: Normal cardiomediastinal silhouette. Bones and soft tissues: Unremarkable. DIVISION OF RADIOLOGY Provider, [facility] - 12/29/2022 * * *Final Report* * * DATE OF EXAM: Dec 29 2022 7:04PM WOX 5291 - XR CHEST 2V FRONTAL/LAT / PROCEDURE REASON: cough * * * * Physician Interpretation * * * * EXAMINATION: CHEST RADIOGRAPH (2 VIEW FRONTAL & LATERAL) CLINICAL HISTORY: Cough MQ: XC2_6 EXAM DATE/TIME: 12/29/2022 7:04 PM COMPARISON: 09/03/2009 RESULT: Lines, tubes, and devices: None. Lungs and pleura: No consolidation. No lung mass. No pleural effusion. No pneumothorax. Cardiomediastinal silhouette: Normal cardiomediastinal silhouette. Bones and soft tissues: Unremarkable. IMPRESSION IMPRESSION: No acute radiographic abnormality. Hydraulic Plumber: SANDY Transcribe Date/Time: Dec 29 2022 9:50P Dictated by : BARBIE POWERS MD This examination was interpreted and the report reviewed and electronically signed by: BARBIE POWERS MD on Dec 29 2022 9:52PM EST [facility] Radiology Study observation (narrative) [facility] XR Chest PA and LateralOrder ed By: [facility] Provider on 12-29-2022 [facility] Trichmonas Vaginalis Screen (EIA)on 08-17-2022 Trichomonas Vaginalis Screen (EIA) Negative Normal [facility] Comment on above: Performed By: #### E TRIC #### [facility] [address] [place] [address] [employer] [place] 08-17-2022 Wet Prep Clue Cellls None Seen Normal [facility] Comment on above: Performed By: #### W ETPR #### [facility] [address] [place] [address] Wet Prep Trichomonas See EIA Normal [facility] Comment on above: Performed By: #### W ETPR #### [facility] [address] [place] [address] Wet Prep Yeast None Seen Normal [facility] Comment on above: Performed By: #### W ETPR #### [facility] [address] [place] [address] PT Progress Noteon 1 PT Progress Note Therapy Diagnosis Assessed Synovitis of knee (727.09) (M65.9) PFS (patellofemoral syndrome) (719.46) (M22.2X9) Decreased range of motion of right knee (719.56) (M25.661) Right knee pain (719.46) (M25.561) Plan Goals: Goals set and discussed today. Pt will demo and report compliance with HEP in order to augment POC goals and progression toward independence with symptom management for better outcomes once D/C from POC., by week 3 Activity Limitation: Pt will demo improved ease with ascending/descending stairs with reciprocal pattern and improved eccentric control to decrease fall risk. , by week 6 Balance: Pt will demo improved standing balance and proprioception with SLS improved to >/= 30 seconds, to decrease instability and improve ease to ambulate over uneven terrain. 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 , by week 6 Strength: Pt will demo improved MMT by >/= 1 point on 0-5 point scale in BLE's for improved strength and stability, and improved ease with transfers, lifting/carrying, and proper mechanics with ADL?s AND IADL?s. , by week 6 LEFS, Pt will report subjective improvement with score on LEFS improved by >/= 10 points for return to PLOF, improved QOL, and improved ease with ADL?s AND IADL?s. , by week 6 Planned interventions include: cryotherapy, dry needling, education/instruction, electrical stimulation, gait training, home program, hot pack, kinesiotaping, manual therapy, neuromuscular re-education, self care/home management, therapeutic activities, therapeutic exercises, ultrasound and IASTM/CUPPING. Frequency and duration: 1 time(s) a week, for 6 weeks, for 6 visits . due to patients school/clinic schedule. Potential to achieve rehab goals is excellent Discussed with pt to call and schedule re-eval to see if more treatments are necessary. Assessment Patient identified by name and date. Pt able to tolerate progressions and weights this date with no c/o increased sx. Noted weakness in glutes with bridging while marching due to minimal lift feet off bed. Noted weakness with SLR with ER due to shakiness with ankle weight. ИВАН Ford participated in treatment this date with continuous supervision and all clinic decision making by Aminah Busby PTA. Adult Risk Screening There are no spiritual/cultural practices/values/needs that are important to know Initial Fall Risk Screening: KWADWO has not fallen in the last 6 months. Her fall did not result in injury. KWADWO does not have a fear of falling. She does not need assistance with sitting, standing or walking. Does not need assistance walking in her home. She does not need assistance in an unfamiliar setting. The patient is not using an assistive device. Fall Risk Screening: patient is not considered a fall risk. Pain Scale: On a scale of 0 to 10, the patient rates the pain at 0. Pain Quality: aching. The pain makes it hard for the patient to do these things: walking, exercise and work. Insurance Insurance reviewed Visit number: 10 Authorization not required after evaluation POC: 12/05 ; 04/05 [place] Supervising PT: Denise Torres PT, DPT, Cert DN PT Dx: M25.561, M25.661, M22.2X9; M65.9 Onset Date: 2019 Subjective Patient reports:. Pt reports not having as much soreness this date and isn't wearing brace everyday except for when working out or prolonged standing at work. States that stairs aren't as uncomfortable. Precautions: post-op movement restrictions: , post-op activity restrictions: . Fall Risk: none Treatment Time in clinic started at 1045 am Time in clinic ended at 1142 am Total time in clinic is 57 minutes. Total timed code time is 45 minutes. Therapeutic exercise (41082): timed minutes 30, units 2 . Upright Bike Lv 5 x 5mins [X] Eliptical Lv 5 Incline 10 x 5 mins Shuttle press 100# 2x15 B (P, reps) Shuttle press 65# uni 2x15 (P, weight) BOSU mini lunge 2x15 alt (P, reps) BOSU lat lunge 2x15 each (P, reps) BOSU step ups 2x15 (N) 2x10 Heel taps 6?? Step (X) Eccentric LAQ 2 x 10 3#, 5'' eccentric (P, weight) Bridge / december 2 x 10, 4 marches each rep Supine SLR 5s hold 2 x 15, 3# (P, weight) Supine SLR with ER 5' x10, 3# (P, weight) Not Done today: 02/05/2021 gastroc stretch 2x30'' Step up 6'' x20 alt Mini squat 2x10 (N) Supine Bridge 5s hold x10 Hamstring Curls with green band x10 Prone quad sequence Lv2 2 x10 Prone quad stretch with strap 20 secs x 3 Clamshells with resistance Green Band 2 x 10 in S/L . Manual Therapy (89224): timed minutes 10, units 0 . CUPPING- ITB 1 cup with glides x 5 mins, 4 cups (more content not included)... Normal [facility] PT Progress Noteon 1 PT Progress Note Therapy Diagnosis Assessed Decreased range of motion of right knee (719.56) (M25.661) Synovitis of knee (727.09) (M65.9) Right knee pain (719.46) (M25.561) PFS (patellofemoral syndrome) (719.46) (M22.2X9) Plan Goals: Goals set and discussed today. Pt will demo and report compliance with HEP in order to augment POC goals and progression toward independence with symptom management for better outcomes once D/C from POC., by week 3 Activity Limitation: Pt will demo improved ease with ascending/descending stairs with reciprocal pattern and improved eccentric control to decrease fall risk. , by week 6 Balance: Pt will demo improved standing balance and proprioception with SLS improved to >/= 30 seconds, to decrease instability and improve ease to ambulate over uneven terrain. 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 , by week 6 Strength: Pt will demo improved MMT by >/= 1 point on 0-5 point scale in BLE's for improved strength and stability, and improved ease with transfers, lifting/carrying, and proper mechanics with ADL?s AND IADL?s. , by week 6 LEFS, Pt will report subjective improvement with score on LEFS improved by >/= 10 points for return to PLOF, improved QOL, and improved ease with ADL?s AND IADL?s. , by week 6 Planned interventions include: cryotherapy, dry needling, education/instruction, electrical stimulation, gait training, home program, hot pack, kinesiotaping, manual therapy, neuromuscular re-education, self care/home management, therapeutic activities, therapeutic exercises, ultrasound and IASTM/CUPPING. Frequency and duration: 1 time(s) a week, for 6 weeks, for 6 visits . due to patients school/clinic schedule. Potential to achieve rehab goals is excellent Plan to continue to work on balance and strengthening exercises to help ease tolerance of prolonged standing and ascending/descending stairs. Progress with POC, as tolerated. Assessment Patient ID confirmed using Name and . Patient wearing mask throughout session today d/t COVID-19 precautions. Pt demos improved strength in R knee and able to complete treatment with progressions with no c/o increased sx. Still demos difficulty with balance outside base of support and knee gets sore with increased SLS. ИВАН Ford, participated in treatment this date with continuous supervision and all clinical decision making by Denise Torres DPT. Adult Risk Screening There are no spiritual/cultural practices/values/needs that are important to know Initial Fall Risk Screening: KWADWO has not fallen in the last 6 months. Her fall did not result in injury. KWADWO does not have a fear of falling. She does not need assistance with sitting, standing or walking. Does not need assistance walking in her home. She does not need assistance in an unfamiliar setting. The patient is not using an assistive device. Fall Risk Screening: patient is not considered a fall risk. Pain Scale: On a scale of 0 to 10, the patient rates the pain at 0. Pain Quality: aching. The pain makes it hard for the patient to do these things: walking, exercise and work. Insurance Insurance reviewed Visit number: 9 Authorization not required after evaluation POC: 12/05 ; 04/05 [employer] Supervising PT: Denise Torres PT, DPT, Cert DN PT Dx: M25.561, M25.661, M22.2X9; M65.9 Onset Date: 2019 Subjective Patient reports:. Pt denies pain this date, but states that going up and down stairs/ prolonged standing/ and sometimes during therapy it gets sore. She puts her brace on and it helps with the soreness. Home program performing as directed: Yes. Precautions: post-op movement restrictions: , post-op activity restrictions: . Fall Risk: none Treatment Time in clinic started at 1045 Time in clinic ended at 1132 Total time in clinic is 47 minutes. Total timed code time is 45 minutes. Therapeutic exercise (83857): timed minutes 30, units 2 . Upright Bike Lv 5 x 5mins [X] Eliptical Lv 5 Incline 10 x 5 mins Shuttle press 100# 2x10 B Shuttle press 50# uni 2x10 BOSU mini lunge x20 alt BOSU lat lunge x20 each 2x10 Heel taps 6?? Step (X) Eccentric LAQ 2 x 10 2 1/2#, 5'' eccentric Bridge w/ december 2 x 10, 4 marches each rep Supine SLR 5s hold 2 x 10, 2 1/2# (P, weight) Supine SLR with ER 5' x10, 2 1/2# (P, weight) Not Done today: 02/05/2021 gastroc stretch 2x30'' Step up 6'' x20 alt Mini squat 2x10 (N) Supine Bridge 5s hold x10 Hamstring Curls with green band x10 Prone quad sequence Lv2 2 x10 Prone quad stretch with strap 20 secs x 3 Clamshells with resistance Green Band 2 x 10 in (more content not included)... Normal [facility] Established Visit (Orthopaed ic Surgery)on 01-26-2021 Established Visit (Orthopaedic Surgery) Chief Complaint f/u Rt knee synovectomy/lateral release 10/19/20, 3 mths out History of present illness 21-year-old female presented clinic today for 3-month postop follow-up status post right knee arthroscopic synovectomy and lateral release. She is doing very well at this time. She still feels slight weakness with extended weightbearing activity however she has no pain present. She has no instability reported. She is very happy with the results. She is continuing with outpatient physical therapy continuing with her overall strengthening routine. Physical exam General: No acute distress and breathing comfortably. Patient is pleasant and cooperative with the examination. Extremity Right knee is no rash intact sensation is intact. She has improved range of motion 0 to 130 degrees. She has no edema ecchymosis or erythema present no instability on exam. No tenderness palpation of the patellofemoral region. She still has mild crepitus with extension flexion movements mostly over the lateral patellar region. No calf swelling or tenderness. Incisions well-healed well approximated without infection. Diagnostics [ none] Procedure [ none] Assessment Status post right knee arthroscopic synovectomy and lateral release Treatment plan 1. She will continue with physical therapy as tolerated 2. She will resume all activities as tolerated 3. She will follow-up with us if she has any problems in the future. 4. All of the patient's questions were answered. This note was prepared using voice recognition software. The details of this note are correct and have been reviewed, and corrected to the best of my ability. Some grammatical areas may persist related to the 1.618 [employer] software Jaycob Kc PA-C Active Problems Problems Adjustment disorder with other symptom (309.89) (F43.29) Adjustment insomnia (307.41) (F51.02) Allergic rhinitis (477.9) (J30.9) Ankle sprain (845.00) (S93.409A) Asthma (493.90) (J45.909) Decreased range of motion of right knee (719.56) (M25.661) Encounter for routine child health examination without abnormal findings (V20.2) (Z00.129) Foot sprain (845.10) (S93.609A) Hematuria (599.70) (R31.9) Involuntary movements (781.0) (R25.9) Knee pain (719.46) (M25.569) AYLIN (middle ear effusion), bilateral (381.4) (H65.93) Muscle twitching (781.0) (R25.3) PFS (patellofemoral syndrome) (719.46) (M22.2X9) Post-op pain (338.18) (G89.18) Right knee pain (719.46) (M25.561) Synovitis of knee (727.09) (M65.9) Tic disorder, 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) Vaginal discharge (623.5) (N89.8) Vaginal itching (698.1) (N89.8) Vulvar irritation (624.8) (N90.89) Past Medical History Problems History of Acute left otitis media (382.9) (H66.92) Resolved Date: 27 Jun 2016 History of Asthma exacerbation (493.92) (J45.901) Resolved Date: 06 Dec 2016 History of Cough (786.2) (R05) Resolved Date: 07 Oct 2016 History of acute sinusitis (V12.69) (Z87.09) Resolved Date: 27 Jun 2016 History of backache (V13.59) (Z87.39) Resolved Date: 27 Jun 2016 History of fever (V13.89) (Z87.898) Resolved Date: 27 Jun 2016 History of Knee tendinitis (727.09) (M76.899) History of Strain of muscle, fascia, or tendon of lower back (846.9) (S39.012A) Resolved Date: 06 Dec 2016 History of Viral URI with cough (465.9) (J06.9) Resolved Date: 07 Oct 2016 Surgical History Problems Denied: History Of Prior Surgery History of Oral surgery Family History Mother Family history of hypertension (V17.49) (Z82.49) Sister Family history of asthma (V17.5) (Z82.5) Maternal Grandmother Family history of dementia (V17.2) (Z81.8) Family history of Parkinson disease, symptomatic Social History Problems Household: Younger siblings Maria T age 12 Never a smoker Allergies Medication Keppra Recorded By: Niru Jarquin; 07/26/2018 8:37:45 AM NonMedication Shellfish Hives;; Recorded By: Darwin Hudson; 07/03/2020 3:20:06 PM Current Meds Medication NameInstruction cloNIDine HCl - 0.1 MG Oral Tablettake 1 tab in morning and 1/2 tab in evening Minocycline HCl - 100 MG Oral Capsule Oxaprozin 600 MG Oral TabletTAKE 1 TABLET TWICE DAILY. Signatures Electronically signed by : Jaycob Kc PA-C; Jan 26 2021 3:20PM EST (Author) Normal [facility] PT Progress Noteon 1 PT Progress Note Therapy Diagnosis Assessed PFS (patellofemoral syndrome) (719.46) (M22.2X9) Right knee pain (719.46) (M25.561) Synovitis of knee (727.09) (M65.9) Decreased range of motion of right knee (719.56) (M25.661) Plan Goals: Goals set and discussed today. Pt will demo and report compliance with HEP in order to augment POC goals and progression toward independence with symptom management for better outcomes once D/C from POC., by week 3 Activity Limitation: Pt will demo improved ease with ascending/descending stairs with reciprocal pattern and improved eccentric control to decrease fall risk. , by week 6 Balance: Pt will demo improved standing balance and proprioception with SLS improved to >/= 30 seconds, to decrease instability and improve ease to ambulate over uneven terrain. 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 , by week 6 Strength: Pt will demo improved MMT by >/= 1 point on 0-5 point scale in BLE's for improved strength and stability, and improved ease with transfers, lifting/carrying, and proper mechanics with ADL?s AND IADL?s. , by week 6 LEFS, Pt will report subjective improvement with score on LEFS improved by >/= 10 points for return to PLOF, improved QOL, and improved ease with ADL?s AND IADL?s. , by week 6 Planned interventions include: cryotherapy, dry needling, education/instruction, electrical stimulation, gait training, home program, hot pack, kinesiotaping, manual therapy, neuromuscular re-education, self care/home management, therapeutic activities, therapeutic exercises, ultrasound and IASTM/CUPPING. Frequency and duration: 1 time(s) a week, for 6 weeks, for 6 visits . due to patients school/clinic schedule. Potential to achieve rehab goals is excellent Plan to continue with progressions of strengthening and flexibility to reduce pain and improve ease/tolerance with recreational activity. Assessment Patient ID confirmed using Name and . Patient wearing mask throughout session today d/t COVID-19 precautions. Patient is making progress with strength/stability and decreasing pain. Mild restrictions remain in ITB length and fascial glide. Adult Risk Screening There are no spiritual/cultural practices/values/needs that are important to know Initial Fall Risk Screening: KWADWO has not fallen in the last 6 months. Her fall did not result in injury. KWADWO does not have a fear of falling. She does not need assistance with sitting, standing or walking. Does not need assistance walking in her home. She does not need assistance in an unfamiliar setting. The patient is not using an assistive device. Fall Risk Screening: patient is not considered a fall risk. Pain Scale: On a scale of 0 to 10, the patient rates the pain at 0. Pain Quality: aching. The pain makes it hard for the patient to do these things: walking, exercise and work. Insurance Insurance reviewed Visit number: 8 Authorization not required after evaluation POC: 12/05 ; 04/05 [employer] Supervising PT: Denise Torres PT, DPT, Yvette DN PT Dx: M25.561, M25.661, M22.2X9; M65.9 Onset Date: 2019 Subjective Patient reports:. Patient denies pain upon arrival this date, notes that she still have aching/soreness following clinicals (8 hours of walking/standing). Patient denies any sharp/shooting pain. Stairs getting easier but still does not feel she has full strength. Home program performing as directed: Yes. Precautions: post-op movement restrictions: , post-op activity restrictions: . Fall Risk: none Treatment Time in clinic started at 1045 Time in clinic ended at 1132 Total time in clinic is 47 minutes. Total timed code time is 45 minutes. Therapeutic exercise (35531): timed minutes 30, units 2 . Upright Bike Lv 5 x 5mins [X] Eliptical Lv 5 Incline 10 x 5 mins Shuttle press 100# 2x10 B Shuttle press 50# uni 2x10 BOSU mini lunge x20 alt BOSU lat lunge x20 each 2x10 Heel taps 6?? Step Eccentric LAQ 2 x 10 2#, 5'' eccentric Bridge w/ december 2 x 10, 4 marches each rep Supine SLR 5s hold 2 x 10, 2# Supine SLR with ER 5' x10, 2# Not Done today: 01/22/21 gastroc stretch 2x30'' Step up 6'' x20 alt Mini squat 2x10 (N) Supine Bridge 5s hold x10 Hamstring Curls with green band x10 Prone quad sequence Lv2 2 x10 Prone quad stretch with strap 20 secs x 3 Clamshells with resistance Green Band 2 x 10 in S/L . Manual Therapy (44657): timed minutes 7, units 0 . CUPPING- ITB 1 cup with glides x 3 mins, 4 cups stationary x4 mins TIger Tail MFR to ITB x3 mins [X]. Neuromuscular Re-education (31458): timed minutes 8, units 1 . SLS on airex w/ (more content not included)... [facility] TH CT ANGIO CHESTon 01-22-20 CT ANGIO CHEST Patient Name: KWADWO MENDIETA STUDY: CT ANGIO CHEST; 01/21/2021 2:36 pm INDICATION: COVID PNEUMONIA PT HAS SHELLFISH ALLERGY. COMPARISON: None. ACCESSION NUMBER(S): [id number] ORDERING CLINICIAN: JUDY STONER TECHNIQUE: Helical data acquisition of the chest was obtained after the intravenous administration of 90 mL of Isovue 370. No immediate complications were noted.. Axial, coronal, and sagital reformatted images were also provided. FINDINGS: POTENTIAL LIMITATIONS OF THE STUDY: None HEART AND VESSELS: No discrete filling defects within the main pulmonary artery or its branches. Main pulmonary artery and its branches are normal in caliber. The thoracic aorta is of normal course and caliber without vascular calcifications. No coronary artery calcifications are seen.The study is not optimized for evaluation of coronary arteries. The cardiac chambers are not enlarged. No evidence of pericardial effusion. MEDIASTINUM AND ARPAN, LOWER NECK AND AXILLA: The visualized thyroid gland is within normal limits. No evidence of thoracic lymphadenopathy by CT criteria. Esophagus appears within normal limits as seen. LUNGS AND AIRWAYS: The trachea and central airways are patent. No endobronchial lesion. There is mild peribronchial thickening.-there are no focal infiltrates or effusions. There are no suspicious parenchymal lung nodules. UPPER ABDOMEN: The visualized subdiaphragmatic structures demonstrate no remarkable findings. CHEST WALL AND OSSEOUS STRUCTURES: There are no suspicious osseous lesions. Multilevel degenerative changes are present IMPRESSION: 1. No evidence of pulmonary embolism. 2. The aorta is unremarkable. 3. No active airspace disease. Question mild peribronchial thickening and correlate with small airway disease. Electronically signed by: Jina RAGSDALE MD Normal [facility] PT Progress Noteon PT Progress Note No report was sent Normal [facility] Therapy Communicationon 12-28 Therapy Communication Message KWADWO MENDIETA canceled today no reason given. Signatures Electronically signed by : Denise Torres PT; Jan 14 2021 12:53PM EST (Author) [facility] PT Progress Noteon 1 PT Progress Note Therapy Diagnosis Assessed PFS (patellofemoral syndrome) (719.46) (M22.2X9) Decreased range of motion of right knee (719.56) (M25.661) Synovitis of knee (727.09) (M65.9) Right knee pain (719.46) (M25.561) Plan Goals: Goals set and discussed today. Pt will demo and report compliance with HEP in order to augment POC goals and progression toward independence with symptom management for better outcomes once D/C from POC., by week 3 Activity Limitation: Pt will demo improved ease with ascending/descending stairs with reciprocal pattern and improved eccentric control to decrease fall risk. , by week 6 Balance: Pt will demo improved standing balance and proprioception with SLS improved to >/= 30 seconds, to decrease instability and improve ease to ambulate over uneven terrain. 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 , by week 6 Strength: Pt will demo improved MMT by >/= 1 point on 0-5 point scale in BLE's for improved strength and stability, and improved ease with transfers, lifting/carrying, and proper mechanics with ADL?s AND IADL?s. , by week 6 LEFS, Pt will report subjective improvement with score on LEFS improved by >/= 10 points for return to PLOF, improved QOL, and improved ease with ADL?s AND IADL?s. , by week 6 Planned interventions include: cryotherapy, dry needling, education/instruction, electrical stimulation, gait training, home program, hot pack, kinesiotaping, manual therapy, neuromuscular re-education, self care/home management, therapeutic activities, therapeutic exercises, ultrasound and IASTM/CUPPING. Frequency and duration: 1 time(s) a week, for 6 weeks, for 6 visits . due to patients school/clinic schedule. Potential to achieve rehab goals is excellent Plan to continue with progressions of strength/stability training and flexibility/mobility as tolerated to further reduce pain/discomfrot and facilitate return to PLOF recreation/fitness. Assessment Patient ID confirmed using Name and . Patient wearing mask throughout session today d/t COVID-19 precautions. Patient with good tolerance to treatment, no c/o increased pain/discomfort in clinic. Patient making progress with strength, continues to present with ITB tightness, instructed patient to wear shorts to next session for cupping. Adult Risk Screening There are no spiritual/cultural practices/values/needs that are important to know Initial Fall Risk Screening: KWADWO has not fallen in the last 6 months. Her fall did not result in injury. KWADWO does not have a fear of falling. She does not need assistance with sitting, standing or walking. Does not need assistance walking in her home. She does not need assistance in an unfamiliar setting. The patient is not using an assistive device. Fall Risk Screening: patient is not considered a fall risk. Pain Scale: On a scale of 0 to 10, the patient rates the pain at 0. Please identify location of pain: lateral Right knee. Pain Quality: aching. The pain makes it hard for the patient to do these things: walking, exercise and work. Insurance Insurance reviewed Visit number: 7 Authorization not required after evaluation [facility]: Denise Torres PT, DPT, Yvette DN PT Dx: M25.561, M25.661, M22.2X9; M65.9 Onset Date: 2019 Subjective Patient reports:. Patient denies pain upon arrival, reports that she has been gradually increasing her independent fitness. Home program performing as directed: Yes. Precautions: post-op movement restrictions: , post-op activity restrictions: . Fall Risk: none Treatment Time in clinic started at 1045 Time in clinic ended at 1127 Total time in clinic is 42 minutes. Total timed code time is 41 minutes. Therapeutic exercise (78799): timed minutes 38, units 3 . Upright Bike Lv 5 x 5mins [X] Eliptical Lv 5 Incline 10 x 5 mins x10 Heel taps (N) Eccentric LAQ 2 x 10 2#, 5'' eccentric SLS on airex w/ rebounder 3 way toss 2# x 20 [P] Y balance reach x 10 SLS airex w/ cone reaching outside GREG 2x10 Bridge w/ december 2 x 10, 4 marches each rep Shuttle press 90# 2x10 B Shuttle press 50# uni 2x10 BOSU mini lunge x20 alt BOSU lat lunge x20 each Supine SLR 5s hold 2 x 10, 2# Supine SLR with ER 5' x10 2# Not Done today: 01/01/21 gastroc stretch 2x30'' Step up 6'' x20 alt Mini squat 2x10 (N) Supine Bridge 5s hold x10 Hamstring Curls with green band x10 Prone quad sequence Lv2 2 x10 Prone quad stretch with strap 20 secs x 3 Clamshells with resistance Green Band 2 x 10 in S/L . Manual Therapy (30195): timed minutes 3 . CUPPING (A-PRN) (more content not included)... Normal [employer] PT Progress Noteon 1 PT Progress Note Therapy Diagnosis Assessed Right knee pain (719.46) (M25.561) Synovitis of knee (727.09) (M65.9) Decreased range of motion of right knee (719.56) (M25.661) PFS (patellofemoral syndrome) (719.46) (M22.2X9) Plan Goals: Goals set and discussed today. Pt will demo and report compliance with HEP in order to augment POC goals and progression toward independence with symptom management for better outcomes once D/C from POC., by week 3 Activity Limitation: Pt will demo improved ease with ascending/descending stairs with reciprocal pattern and improved eccentric control to decrease fall risk. , by week 6 Balance: Pt will demo improved standing balance and proprioception with SLS improved to >/= 30 seconds, to decrease instability and improve ease to ambulate over uneven terrain. 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 , by week 6 Strength: Pt will demo improved MMT by >/= 1 point on 0-5 point scale in BLE's for improved strength and stability, and improved ease with transfers, lifting/carrying, and proper mechanics with ADL?s AND IADL?s. , by week 6 LEFS, Pt will report subjective improvement with score on LEFS improved by >/= 10 points for return to PLOF, improved QOL, and improved ease with ADL?s AND IADL?s. , by week 6 Planned interventions include: cryotherapy, dry needling, education/instruction, electrical stimulation, gait training, home program, hot pack, kinesiotaping, manual therapy, neuromuscular re-education, self care/home management, therapeutic activities, therapeutic exercises, ultrasound and IASTM/CUPPING. Frequency and duration: 1 time(s) a week, for 6 weeks, for 6 visits . due to patients school/clinic schedule. Potential to achieve rehab goals is excellent Pt may bring shorts to next session if there is increased pain in IT band to allow for cupping of IT band. Plan to continue with updated POC to progress with quad and glute retraining with focus on eccentric quad control and progression of balance/proprioception activities as pain allows. Progress with POC, as tolerated. Assessment Pt confirmed via and Full Name. Pt reassessed this date by supervising PT with improvements noted in ROM and strength compared to initial evaluation. Pt has requested to continue participating in outpatient PT to increase strength, coordination and balance of R quadriceps and ankle as well as increase AROM of R quads and hamstrings. Pt has been provided with additional exercises to increase ankle and quad stability, coordination and balance as well as strengthening exercises to increase eccentric control of R LE when ascending and descending stairs in and around the home. Pt has increased LEFS score to 62/80. She does still demonstrate weakness, decreased motor control and decreased eccentric control at quadriceps but tolerated all new ther-ex well. Pt did required multiple cues for mechanics with heel taps but only minor c/o pain/fatigue in quad musculature. JALYN Mason, participated in treatment this date with continuous supervision and all clinical decision making by Denise Torres DPT. Response to treatment: decreased pain. Patient was able to complete today's treatment with ease. Adult Risk Screening There are no spiritual/cultural practices/values/needs that are important to know Initial Fall Risk Screening: KWADWO has not fallen in the last 6 months. Her fall did not result in injury. KWADWO does not have a fear of falling. She does not need assistance with sitting, standing or walking. Does not need assistance walking in her home. She does not need assistance in an unfamiliar setting. The patient is not using an assistive device. Fall Risk Screening: patient is not considered a fall risk. Pain Scale: On a scale of 0 to 10, the patient rates the pain at 0. Please identify location of pain: lateral Right knee. Pain Quality: aching. The pain makes it hard for the patient to do these things: walking, exercise and work. Insurance Insurance reviewed Visit number: 6 Authorization not required after evaluation POC: ; 04/05 [employer] Supervising PT: Denise Torres PT, DPT, Yvette LUNDBERG PT Dx: M25.561, M25.661, M22.2X9; M65.9 Onset Date: 2019 Subjective Patient reports:. Pt states she has some soreness after clinicals Pt states she still has tightness in her R IT band and atrophy in R quadriceps. Pt not currently having issues with HEP. Home program performing as directed: Yes. Precautions: post-op movement restrictions: , post-op activity restrictions: . Fall Risk: none Objective Ortho LEFS: 54/80 R Knee AROM: (more content not included)... Normal [facility] Therapy Re-eval Noteon 01-01 Therapy Re-eval Note Therapy Diagnosis Assessed 1. Right knee pain (719.46) (M25.561) 2. Synovitis of knee (727.09) (M65.9) 3. Decreased range of motion of right knee (719.56) (M25.661) 4. PFS (patellofemoral syndrome) (719.46) (M22.2X9) Plan Goals: Goals set and discussed today. Pt will demo and report compliance with HEP in order to augment POC goals and progression toward independence with symptom management for better outcomes once D/C from POC., by week 3 Activity Limitation: Pt will demo improved ease with ascending/descending stairs with reciprocal pattern and improved eccentric control to decrease fall risk. , by week 6 Balance: Pt will demo improved standing balance and proprioception with SLS improved to >/= 30 seconds, to decrease instability and improve ease to ambulate over uneven terrain. 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 , by week 6 Strength: Pt will demo improved MMT by >/= 1 point on 0-5 point scale in BLE's for improved strength and stability, and improved ease with transfers, lifting/carrying, and proper mechanics with ADL?s AND IADL?s. , by week 6 LEFS, Pt will report subjective improvement with score on LEFS improved by >/= 10 points for return to PLOF, improved QOL, and improved ease with ADL?s AND IADL?s. , by week 6 Planned interventions include: cryotherapy, dry needling, education/instruction, electrical stimulation, gait training, home program, hot pack, kinesiotaping, manual therapy, neuromuscular re-education, self care/home management, therapeutic activities, therapeutic exercises, ultrasound and IASTM/CUPPING. Frequency and duration: 1 time(s) a week, for 6 weeks, for 6 visits . due to patients school/clinic schedule. Potential to achieve rehab goals is excellent Pt may bring shorts to next session if there is increased pain in IT band to allow for cupping of IT band. Plan to continue with updated POC to progress with quad and glute retraining with focus on eccentric quad control and progression of balance/proprioception activities as pain allows. Progress with POC, as tolerated. Assessment Pt confirmed via and Full Name. Pt reassessed this date by supervising PT with improvements noted in ROM and strength compared to initial evaluation. Pt has requested to continue participating in outpatient PT to increase strength, coordination and balance of R quadriceps and ankle as well as increase AROM of R quads and hamstrings. Pt has been provided with additional exercises to increase ankle and quad stability, coordination and balance as well as strengthening exercises to increase eccentric control of R LE when ascending and descending stairs in and around the home. Pt has increased LEFS score to 62/80. She does still demonstrate weakness, decreased motor control and decreased eccentric control at quadriceps but tolerated all new ther-ex well. Pt did required multiple cues for mechanics with heel taps but only minor c/o pain/fatigue in quad musculature. JALYN Mason, participated in treatment this date with continuous supervision and all clinical decision making by Denise Torres DPT. Response to treatment: decreased pain. Patient was able to complete today's treatment with ease. Adult Risk Screening There are no spiritual/cultural practices/values/needs that are important to know Initial Fall Risk Screening: KWADWO has not fallen in the last 6 months. Her fall did not result in injury. KWADWO does not have a fear of falling. She does not need assistance with sitting, standing or walking. Does not need assistance walking in her home. She does not need assistance in an unfamiliar setting. The patient is not using an assistive device. Fall Risk Screening: patient is not considered a fall risk. Pain Scale: On a scale of 0 to 10, the patient rates the pain at 0. Please identify location of pain: lateral Right knee. Pain Quality: aching. The pain makes it hard for the patient to do these things: walking, exercise and work. Insurance Insurance reviewed Visit number: 6 Authorization not required after evaluation POC: 0 ; / [employer] Supervising PT: Denise Torres PT, DPT, Yvette DN PT Dx: M25.561, M25.661, M22.2X9; M65.9 Onset Date: 2019 Subjective Patient reports:. Pt states she has some soreness after clinicals Pt states she still has tightness in her R IT band and atrophy in R quadriceps. Pt not currently having issues with HEP. Home program performing as directed: Yes. Precautions: post-op movement restrictions: , post-op activity restrictions: . Fall Risk: none Objective Ortho LEFS: 54/80 R (more content not included)... Normal [facility] PT Progress Noteon 1 PT Progress Note Therapy Diagnosis Assessed PFS (patellofemoral syndrome) (719.46) (M22.2X9) Decreased range of motion of right knee (719.56) (M25.661) Synovitis of knee (727.09) (M65.9) Right knee pain (719.46) (M25.561) Plan Goals: Goals set and discussed today. Pt will demo and report compliance with HEP in order to augment POC goals and progression toward independence with symptom management for better outcomes once D/C from POC., by week 3 Activity Limitation: Pt will demo improved ease with ascending/descending stairs with reciprocal pattern and improved eccentric control to decrease fall risk. , by week 6 Balance: Pt will demo improved standing balance and proprioception with SLS improved to >/= 30 seconds, to decrease instability and improve ease to ambulate over uneven terrain. 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 , by week 6 Strength: Pt will demo improved MMT by >/= 1 point on 0-5 point scale in BLE's for improved strength and stability, and improved ease with transfers, lifting/carrying, and proper mechanics with ADL?s AND IADL?s. , by week 6 LEFS, Pt will report subjective improvement with score on LEFS improved by >/= 10 points for return to PLOF, improved QOL, and improved ease with ADL?s AND IADL?s. , by week 6 Planned interventions include: cryotherapy, dry needling, education/instruction, electrical stimulation, gait training, home program, hot pack, kinesiotaping, manual therapy, neuromuscular re-education, self care/home management, therapeutic activities, therapeutic exercises, ultrasound and IASTM/CUPPING. Frequency and duration: 1 time(s) a week, for 6 weeks, for 7 visits . due to patients school/clinic schedule. Potential to achieve rehab goals is excellent Plan to continue with strength progressions as tolerated to further reduce pain and improve ease/tolerance with community ambulation and return to recreation/fitness activity. Assessment Patient ID confirmed using Name and . Patient wearing mask throughout session today d/t COVID-19 precautions. Patient making goal directed progress with decreasing pain and improving strength. Reviewed ITB release and stretching for HEP. Adult Risk Screening There are no spiritual/cultural practices/values/needs that are important to know Initial Fall Risk Screening: KWADWO has not fallen in the last 6 months. Her fall did not result in injury. KWADWO does not have a fear of falling. She does not need assistance with sitting, standing or walking. Does not need assistance walking in her home. She does not need assistance in an unfamiliar setting. The patient is not using an assistive device. Fall Risk Screening: patient is not considered a fall risk. Pain Scale: On a scale of 0 to 10, the patient rates the pain at 0. Please identify location of pain: lateral Right knee. Pain Quality: aching. The pain makes it hard for the patient to do these things: walking, exercise and work. Insurance Insurance reviewed Visit number: 5 Authorization not required after evaluation POC: 03/05 [employer] Supervising PT: Denise Torres PT, DPT, Yvette DN PT Dx: M25.561, M25.661, M22.2X9; M65.9 Onset Date: 2019 Subjective Patient reports:. knee pain decreasing significantly, patient saw MD for f/u and MD talked about tight ITB. Home program performing as directed: Yes. Precautions: post-op movement restrictions: , post-op activity restrictions: . Fall Risk: none Treatment Time in clinic started at 0830 Time in clinic ended at 0915 Total time in clinic is 45 minutes. Total timed code time is 40 minutes. Therapeutic exercise (38350): timed minutes 40, units 3 . Upright Bike Lv 5 x 5mins ITB Stretch 3 x 30'' w/Flexband Roller bar ITB release (reviewed for HEP) gastroc stretch 2x30'' Step up 6'' x20 alt TKE with orange band 2x10 4way hip orange band x10 ea B Shuttle press 75# 2x10 B Shuttle press 50# uni 2x10 Mini squat 2x10 BOSU mini lunge x20 alt BOSU lat lunge x10 each Supine Bridge 5s hold x10 Hamstring Curls with green band x10 SLS on airex with brace 3 x 30?? Prone quad sequence Lv2 2 x10 Prone quad stretch with strap 20 secs x 3 Supine SLR 5s hold 2x 10, 0# 1st set, 2# 2nd set Supine SLR with ER 5' x10 2# Clamshells with resistance Green Band 2 x 10 in S/L Seated quad set 5s hold 2x10 (X) Seated Hamstring Stretch 5 sec hold x10 (X) Seated LAQ with Hip Add ball 5s hold x10 (X) Heel slides x10, 5?? holds w/strap (X) S/L Hip Abd 2 x 10 0# (X) Mini lunges (X) . 'Scores and Scales' Signatures Electronically signed by : Chan Marie PTA; Robert (more content not included)... Normal [facility] Established Visit (Orthopaed ic Surgery)on 12-22-2020 Established Visit (Orthopaedic Surgery) Orders PFS (patellofemoral syndrome), Right knee pain, Synovitis of knee Physical Therapy - General Referral Evaluation and Treatment Evaluate AND Treat Status: Active Requested for: [id number] Chief Complaint f/u Rt knee synovectomy/lateral release 10/19/20, 2 mths out History of present illness 20-year-old female presented clinic today for 2-month postop follow-up visit status post right knee arthroscopic synovectomy and lateral release. Overall doing much better at this time. She is continuing to wear her free sport lateral stabilizer which seems to be going well. She is continuing with outpatient physical therapy and they are just now getting into the strengthening portion of her rehabilitation. She notices improvement with stability as well as strength and range of motion. She has very little pain present with weightbearing activity. Still gets fatigue when up on her feet for long periods of time. She has no numbness tingling no fevers chills. Physical exam General: No acute distress and breathing comfortably. Patient is pleasant and cooperative with the examination. Extremity Right knee is neurovascular intact sensation is intact. She has very good range of motion 0 to 125 degrees. She has mild edema of the right knee. Minimal tenderness palpation over the IT band. No calf swelling or tenderness. Portal sites well-healed well approximated without infection. Compartments are soft. Improved strength right lower extremity. Mild quad atrophy over the VMO. Diagnostics [ none] Procedure [ none] Assessment Status post right knee arthroscopic synovectomy and lateral release Treatment plan 1. She will continue with weightbearing activity as tolerated with the brace. 2. She will continue with outpatient physical therapy a new order was given to her today to continue PT focusing on strength and myofascial releasing over the IT band. 3. She will follow-up with us in 1 month for possible final check at that time. 4. All of the patient's questions were answered. This note was prepared using voice recognition software. The details of this note are correct and have been reviewed, and corrected to the best of my ability. Some grammatical areas may persist related to the 1.618 [employer] software Jaycob Kc PA-C Active Problems Problems Adjustment disorder with other symptom (309.89) (F43.29) Adjustment insomnia (307.41) (F51.02) Allergic rhinitis (477.9) (J30.9) Ankle sprain (845.00) (S93.409A) Asthma (493.90) (J45.909) Decreased range of motion of right knee (719.56) (M25.661) Encounter for routine child health examination without abnormal findings (V20.2) (Z00.129) Foot sprain (845.10) (S93.609A) Hematuria (599.70) (R31.9) Involuntary movements (781.0) (R25.9) Knee pain (719.46) (M25.569) AYLIN (middle ear effusion), bilateral (381.4) (H65.93) Muscle twitching (781.0) (R25.3) PFS (patellofemoral syndrome) (719.46) (M22.2X9) Post-op pain (338.18) (G89.18) Right knee pain (719.46) (M25.561) Synovitis of knee (727.09) (M65.9) Tic disorder, 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) Vaginal discharge (623.5) (N89.8) Vaginal itching (698.1) (N89.8) Vulvar irritation (624.8) (N90.89) Past Medical History Problems History of Acute left otitis media (382.9) (H66.92) Resolved Date: 27 Jun 2016 History of Asthma exacerbation (493.92) (J45.901) Resolved Date: 06 Dec 2016 History of Cough (786.2) (R05) Resolved Date: 07 Oct 2016 History of acute sinusitis (V12.69) (Z87.09) Resolved Date: 27 Jun 2016 History of backache (V13.59) (Z87.39) Resolved Date: 27 Jun 2016 History of fever (V13.89) (Z87.898) Resolved Date: 27 Jun 2016 History of Knee tendinitis (727.09) (M76.899) History of Strain of muscle, fascia, or tendon of lower back (846.9) (S39.012A) Resolved Date: 06 Dec 2016 History of Viral URI with cough (465.9) (J06.9) Resolved Date: 07 Oct 2016 Surgical History Problems Denied: History Of Prior Surgery History of Oral surgery Family History Mother Family history of hypertension (V17.49) (Z82.49) Sister Family history of asthma (V17.5) (Z82.5) Maternal Grandmother Family history of dementia (V17.2) (Z81.8) Family history of Parkinson disease, symptomatic Social History Problems Household: Younger siblings Maria T age 12 Never a smoker Allergies Medication Keppra Recorded By: Niru Jarquin; 07/26/2018 8:37:45 AM NonMedication Shellfish Hives;; Recorded By: Darwin Hudson; 07/03/2020 3:20:06 PM Current Meds Medication NameInstruction cloNIDine HCl - 0.1 MG Oral Tablettake 1 tab in morning and 1/2 tab in evening Minocycline HCl - 100 MG Oral Capsule Oxaprozin 600 MG Oral TabletTAKE 1 TABLET TWICE DAILY. Signatures Electronically signed by : Jaycob Kc PA-C; Dec 23 2020 7:26AM EST (Author) Normal [facility] PT Progress Noteon 1 PT Progress Note Therapy Diagnosis Assessed Right knee pain (719.46) (M25.561) Synovitis of knee (727.09) (M65.9) Decreased range of motion of right knee (719.56) (M25.661) PFS (patellofemoral syndrome) (719.46) (M22.2X9) Plan Goals: Goals set and discussed today. Pt will demo and report compliance with HEP in order to augment POC goals and progression toward independence with symptom management for better outcomes once D/C from POC., by week 3 Activity Limitation: Pt will demo improved ease with ascending/descending stairs with reciprocal pattern and improved eccentric control to decrease fall risk. , by week 6 Balance: Pt will demo improved standing balance and proprioception with SLS improved to >/= 30 seconds, to decrease instability and improve ease to ambulate over uneven terrain. 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 , by week 6 Strength: Pt will demo improved MMT by >/= 1 point on 0-5 point scale in BLE's for improved strength and stability, and improved ease with transfers, lifting/carrying, and proper mechanics with ADL?s AND IADL?s. , by week 6 LEFS, Pt will report subjective improvement with score on LEFS improved by >/= 10 points for return to PLOF, improved QOL, and improved ease with ADL?s AND IADL?s. , by week 6 Planned interventions include: cryotherapy, dry needling, education/instruction, electrical stimulation, gait training, home program, hot pack, kinesiotaping, manual therapy, neuromuscular re-education, self care/home management, therapeutic activities, therapeutic exercises, ultrasound and IASTM/CUPPING. Frequency and duration: 1 time(s) a week, for 6 weeks, for 7 visits . due to patients school/clinic schedule. Potential to achieve rehab goals is excellent progress patient in LE strengthening and flexibility as tolerated to increase ease and comfort with occupational and recreational activities. Assessment Patient ID confirmed using Name and . Patient wearing mask throughout session today d/t COVID-19 precautions. patient was able to tolerate all new strengthening exercises with minor difficulty and with no increase in pain or discomfort this date; patient has noted weakness in RLE and experienced muscle fatigue early during treatment ИВАН Padilla participated in treatment this date with continuous supervision and all clinical decision making by Chan Marie, SERVICE PARTS COORDINATOR, [facility]. Adult Risk Screening There are no spiritual/cultural practices/values/needs that are important to know Initial Fall Risk Screening: KWADWO has not fallen in the last 6 months. Her fall did not result in injury. KWADWO does not have a fear of falling. She does not need assistance with sitting, standing or walking. Does not need assistance walking in her home. She does not need assistance in an unfamiliar setting. The patient is not using an assistive device. Fall Risk Screening: patient is not considered a fall risk. Pain Scale: On a scale of 0 to 10, the patient rates the pain at 0. Please identify location of pain: lateral Right knee. Pain Quality: aching. The pain makes it hard for the patient to do these things: walking, exercise and work. Insurance Insurance reviewed Visit number: 4 Authorization not required after evaluation POC: 02/03 [employer] Supervising PT: Denise Torres PT, DPT, Yvette LUNDBERG PT Dx: M25.561, M25.661, M22.2X9; M65.9 Onset Date: 2019 Subjective Patient reports:. Patient reports experiencing pain with prolonged activity with max pain reaching with a 4/10 that is relieved with rest; patient denied any increase in pain during and post treatment this date. Home program performing as directed: Yes. Precautions: post-op movement restrictions: , post-op activity restrictions: . Fall Risk: none Treatment Time in clinic started at 0745 Time in clinic ended at 0827 Total time in clinic is 42 minutes. Total timed code time is 40 minutes. Therapeutic exercise (08498): timed minutes 40, units 3 . Upright Bike Lv 5 x 5mins gastroc stretch 2x30'' (N) Step up 6'' x20 alt (N) TKE with orange band 2x10 (N) 4way hip orange band x10 ea B (N) Shuttle press 75# 2x10 B (N) Shuttle press 50# uni 2x10 (N) BOSU mini lunge x20 alt (N) BOSU lateral lunge x10 each direction (N) Seated quad set 5s hold 2x10 (X) Seated SLR 5s hold x10(X) Seated Hamstring Stretch 5 sec hold x10 (X) Seated LAQ with Hip Add ball 5s hold x10 (X) Heel slides x10, 5?? holds w/strap (X) Supine Bridge 5s hold x10 Supine SLR with ER 5' x10 (X, dt time) Clamshells with resistance Green Band 2 x 10 in S/L (X, d/t time) S/L Hip Abd 2 x 1 (more content not included)... Normal [facility] PT Progress Noteon 1 PT Progress Note Therapy Diagnosis Assessed PFS (patellofemoral syndrome) (719.46) (M22.2X9) Decreased range of motion of right knee (719.56) (M25.661) Synovitis of knee (727.09) (M65.9) Right knee pain (719.46) (M25.561) Plan Goals: Goals set and discussed today. Pt will demo and report compliance with HEP in order to augment POC goals and progression toward independence with symptom management for better outcomes once D/C from POC., by week 3 Activity Limitation: Pt will demo improved ease with ascending/descending stairs with reciprocal pattern and improved eccentric control to decrease fall risk. , by week 6 Balance: Pt will demo improved standing balance and proprioception with SLS improved to >/= 30 seconds, to decrease instability and improve ease to ambulate over uneven terrain. 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 , by week 6 Strength: Pt will demo improved MMT by >/= 1 point on 0-5 point scale in BLE's for improved strength and stability, and improved ease with transfers, lifting/carrying, and proper mechanics with ADL?s AND IADL?s. , by week 6 LEFS, Pt will report subjective improvement with score on LEFS improved by >/= 10 points for return to PLOF, improved QOL, and improved ease with ADL?s AND IADL?s. , by week 6 Planned interventions include: cryotherapy, dry needling, education/instruction, electrical stimulation, gait training, home program, hot pack, kinesiotaping, manual therapy, neuromuscular re-education, self care/home management, therapeutic activities, therapeutic exercises, ultrasound and IASTM/CUPPING. Frequency and duration: 1 time(s) a week, for 6 weeks, for 7 visits . due to patients school/clinic schedule. Potential to achieve rehab goals is excellent Plan to continue with ROM and strength progressions to improved ease with ascending/descending stairs with reciprocal pattern and and improved eccentric control to decrease fall risk. Assessment Patient ID confirmed using Name and . Patient wearing mask throughout session today d/t COVID-19 precautions. SPTA added ER SLR and mini squats to patient's treatment this date. Patient had decreased ROM during SLR and HIP ABD d/t weakness and was cued to try and lift it higher. Patient required v/c to correct form during mini squats. Patient's heel slides were WFL. PAtient was able to complete treatment without much difficulty but noted weaknesses. ИВАН Christine participated in treatment this date with continuous supervision and all clinical decision making by Chan Marie PTA, CCI. Adult Risk Screening There are no spiritual/cultural practices/values/needs that are important to know Initial Fall Risk Screening: KWADWO has not fallen in the last 6 months. Her fall did not result in injury. KWADWO does not have a fear of falling. She does not need assistance with sitting, standing or walking. Does not need assistance walking in her home. She does not need assistance in an unfamiliar setting. The patient is not using an assistive device. Fall Risk Screening: patient is not considered a fall risk. Pain Scale: On a scale of 0 to 10, the patient rates the pain at 0. Please identify location of pain: lateral Right knee. Pain Quality: aching. The pain makes it hard for the patient to do these things: walking, exercise and work. Insurance Insurance reviewed Visit number: 1 Authorization not required after evaluation POC: 12/06 [facility] Supervising PT: Denise Torres PT, DPT, Cert DN PT Dx: M25.561, M25.661, M22.2X9; M65.9 Onset Date: 2019 Subjective Patient reports:. Patient denies pain upon arrival in her lateral right knee. Patient states she has pain after working on it all day that is a 5/10 at most and sometimes when she is walking up steps but states she feels ti is definitely getting better. Patient states she had a pain of 4/10 after last session.Patient stated she was experiencing pain during prone TKE sets. Patient denied pain when leaving session. Home program performing as directed: Yes. Precautions: post-op movement restrictions: , post-op activity restrictions: . Fall Risk: none Treatment Time in clinic started at 1130 Time in clinic ended at 12:00 Total time in clinic is 30 minutes. Total timed code time is 28 minutes. Therapeutic exercise (13142): timed minutes 28, units 2 . Upright Bike Lv 5 x 5mins Seated quad set 5s hold 2x10 Seated SLR 5s hold x10 Seated Hamstring Stretch 5 sec hold x10 Seated LAQ with Hip Add ball 5s hold x10 Heel slides x10, 5?? holds w/strap x Supine Bridge 5s hold x10 Supine SLR with ER 5' x10 Clam (more content not included)... Normal [facility] HEPATITIS B SURFACE ANTIBODY on 12-09-2020 HBV surface Ab Ql (S) Positive Abnormal Negative [facility] Interpretation and review of laboratory results Abnormal [facility] HEPATITIS B SURFACE ANTIGENo n 12-09-2020 HBV surface Ag Ql (S) Negative Negative [facility] HEPATITIS C ANTIBODYon 12-09 HCV Ab Ql (S) Negative Negative [facility] HIV 1/2 SCREEN (4TH GENERATI ON)on 12-09-2020 HIV 1+2 Ab+HIV1 p24 Ag IA Ql Negative Negative [facility] This assay screens f or the presence of HIV-1, HIV-2 antibodies and for the presence of HIV-1 antigen. Test performed using [employer] SANDRITA immunoassay system [facility] Otheron 12-09-2020 Interpretation and review of laboratory results Normal [facility] Test performed using [employer]ITA immunoassay system [facility] PT Progress Noteon PT Progress Note Therapy Diagnosis Assessed Right knee pain (719.46) (M25.561) Synovitis of knee (727.09) (M65.9) Decreased range of motion of right knee (719.56) (M25.661) PFS (patellofemoral syndrome) (719.46) (M22.2X9) Plan Goals: Goals set and discussed today. Pt will demo and report compliance with HEP in order to augment POC goals and progression toward independence with symptom management for better outcomes once D/C from POC., by week 3 Activity Limitation: Pt will demo improved ease with ascending/descending stairs with reciprocal pattern and improved eccentric control to decrease fall risk. , by week 6 Balance: Pt will demo improved standing balance and proprioception with SLS improved to >/= 30 seconds, to decrease instability and improve ease to ambulate over uneven terrain. 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 , by week 6 Strength: Pt will demo improved MMT by >/= 1 point on 0-5 point scale in BLE's for improved strength and stability, and improved ease with transfers, lifting/carrying, and proper mechanics with ADL?s AND IADL?s. , by week 6 LEFS, Pt will report subjective improvement with score on LEFS improved by >/= 10 points for return to PLOF, improved QOL, and improved ease with ADL?s AND IADL?s. , by week 6 Planned interventions include: cryotherapy, dry needling, education/instruction, electrical stimulation, gait training, home program, hot pack, kinesiotaping, manual therapy, neuromuscular re-education, self care/home management, therapeutic activities, therapeutic exercises, ultrasound and IASTM/CUPPING. Frequency and duration: 1 time(s) a week, for 6 weeks, for 7 visits . due to patients school/clinic schedule. Potential to achieve rehab goals is excellent Plan to continue with progressions of strengthening as tolerated to reduce pain and improve ease/tolerance with functional/community ambulation and negotiation of stairs. Assessment Patient ID confirmed using Name and . Patient wearing mask throughout session today d/t COVID-19 precautions. Patient with good tolerance to treatment and demos improving quad control although deficits do remain. Patient demos mild difficulty with prone quad sequence but demos good quality with familiar exercises. Adult Risk Screening There are no spiritual/cultural practices/values/needs that are important to know Initial Fall Risk Screening: KWADWO has not fallen in the last 6 months. Her fall did not result in injury. KWADWO does not have a fear of falling. She does not need assistance with sitting, standing or walking. Does not need assistance walking in her home. She does not need assistance in an unfamiliar setting. The patient is not using an assistive device. Fall Risk Screening: patient is not considered a fall risk. Pain Scale: On a scale of 0 to 10, the patient rates the pain at 0. Please identify location of pain: lateral Right knee. Pain Quality: aching. The pain makes it hard for the patient to do these things: walking, exercise and work. Insurance Insurance reviewed Visit number: 2 Authorization not required after evaluation [facility]: Denise Torres PT, DPT, Cert DN PT Dx: M25.561, M25.661, M22.2X9; M65.9 Onset Date: 2019 Subjective Patient reports:. patient denies pain upon arrival but continues to have increased pain/soreness with prolonged standing/walking and climbing stairs. Home program performing as directed: Yes. Precautions: post-op movement restrictions: , post-op activity restrictions: . Fall Risk: none Treatment Time in clinic started at 1130 Time in clinic ended at 1215 Total time in clinic is 45 minutes. Total timed code time is 40 minutes. Therapeutic exercise (78596): timed minutes 40, units 3 . Upright Bike Lv 5 x 5mins Seated quad set 5s hold 2x10 Seated SLR 5s hold x10 Seated Hamstring Stretch 5 sec hold x10 Seated LAQ with Hip Add ball 5s hold x10 Heel slides x10, 5?? holds w/strap x Supine Bridge 5s hold x10 Supine SLR with ER 5' x10 Clamshells with resistance Green Band 2 x 10 in S/L S/L Hip Abd 2 x 10 0# Prone quad sequence Lv 1 x10, Lv2 x5 Mini squat x10 Mini lunges (A) SLS on airex with brace (A) . 'Scores and Scales' Signatures Electronically signed by : Chan Marie PTA; Dec 14 2020 2:46PM EST (Author) Electronically signed by : Denise Torres PT; Dec 16 2020 10:37AM EST Normal [facility] PT Initial Evaluationon 10-31 PT Initial Evaluation Therapy Diagnosis Assessed Decreased range of motion of right knee (719.56) (M25.661) PFS (patellofemoral syndrome) (719.46) (M22.2X9) Synovitis of knee (727.09) (M65.9) Right knee pain (719.46) (M25.561) Plan of Care Goals: Goals set and discussed today. Pt will demo and report compliance with HEP in order to augment POC goals and progression toward independence with symptom management for better outcomes once D/C from POC., by week 3 Activity Limitation: Pt will demo improved ease with ascending/descending stairs with reciprocal pattern and improved eccentric control to decrease fall risk. , by week 6 Balance: Pt will demo improved standing balance and proprioception with SLS improved to >/= 30 seconds, to decrease instability and improve ease to ambulate over uneven terrain. 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 , by week 6 Strength: Pt will demo improved MMT by >/= 1 point on 0-5 point scale in BLE's for improved strength and stability, and improved ease with transfers, lifting/carrying, and proper mechanics with ADL?s AND IADL?s. , by week 6 LEFS, Pt will report subjective improvement with score on LEFS improved by >/= 10 points for return to PLOF, improved QOL, and improved ease with ADL?s AND IADL?s. , by week 6 Planned interventions include: cryotherapy, dry needling, education/instruction, electrical stimulation, gait training, home program, hot pack, kinesiotaping, manual therapy, neuromuscular re-education, self care/home management, therapeutic activities, therapeutic exercises, ultrasound and IASTM/CUPPING. Frequency and duration: 1 time(s) a week, for 6 weeks, for 7 visits . due to patients school/clinic schedule. Potential to achieve rehab goals is excellent Plan of care was developed with input and agreement by the patient. Assessment Ms. MENDIETA presents with signs and symptoms consistent with right knee pain post lateral patellar release and demonstrates impairments/limitations in right knee ROM, strength, and stability. Pt has difficulty with SLS on the right with ankle, hip, and stepping strategy. She tolerated all assessments and initial exercises well with only an increase in knee pain with knee flexion. 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 Clinical Presentation: Evolving with changing characteristics. Level of Complexity: low Problem List: activity limitations, ADLs/IADLs/self care skills, balance, decreased functional level, fall risk, flexibility, gait/locomotion, motor function/control/tone, pain, participation restrictions, posture, range of motion/joint mobility, strength and transfers. Reason For Visit Initial Evaluation, Post-Op 10/19/2020 . Right Lateral Release and Synovectomy. Referred by: Yasir Abreu MD Adult Risk Screening There are no spiritual/cultural practices/values/needs that are important to know Initial Fall Risk Screening: KWADWO has not fallen in the last 6 months. Her fall did not result in injury. KWADWO does not have a fear of falling. She does not need assistance with sitting, standing or walking. Does not need assistance walking in her home. She does not need assistance in an unfamiliar setting. The patient is not using an assistive device. Fall Risk Screening: patient is not considered a fall risk. Pain Scale: On a scale of 0 to 10, the patient rates the pain at 0. Please identify location of pain: lateral Right knee. Insurance Insurance reviewed Visit number: 1 Authorization not required after evaluation [facility]: [facility]/05 [facility] Supervising PT: Denise Torres PT, DPT, Cert DN PT Dx: M25.561, M25.661, M22.2X9; M65.9 Onset Date: 2019 Subjective Current Episode of Functional Impairment and/or Pain Date of onset: Date of surgery: 10/19/2020 Mechanism of Injury:. Pt is a 20 year female presenting today with c/o right knee pain post lateral patellar release 10/19/2020. She has tendonitis in her other knee as well. Her pain is currently a 0/10 in her right knee. Her pain is irritated from standing for long periods of time or walking for a long period of time. Ascending and descending stairs is also hard for her. She wears her brace at all times. She has a tender bulge on the lateral side of her right knee that causes some pain. Pts knee pain (more content not included)... Normal [facility] CORONAVIRUS 2019 BY PCRon CORONAVIRUS 2019,PCR DETECTED Abnormal Not Detected [facility] Comment on above: Order Comment: COVID CALLED TO [facility], 11/13/2020 10:47 Result Comment: . This assay is designed to detect the N, ORF1ab and/or S genes of SARS-CoV-2 via nucleic acid amplification. A Negative (NOT DETECTED) result does not preclude 2019-nCoV infection since the adequacy of sample collection and/or low viral burden may result in presence of viral nucleic acids below the clinical sensitivity of this test method. Negative (NOT DETECTED) result should not be used as the sole basis for treatment or other patient management decisions. Rather negative results should be combined with clinical observations, patient history, and epidemiological information to make patient management decisions. Fact sheet for providers: https://www.fda.gov/media/515293/download Fact sheet for patients: https://www.fda.gov/media/712157/download This test has received FDA Emergency Use Authorization (EUA) and has been verified by [facility] ([facility]). This test is only authorized for the duration of time that circumstances exist to justify the authorization of the emergency use of in vitro diagnostic tests for the detection of SARS-CoV-2 virus and/or diagnosis of COVID-19 infection under section 564(b)(1) of the Act, 21 U.S.C. 360bbb-3(b)(1), unless the authorization is terminated or revoked sooner. [facility] is certified under CLIA-88 as qualified to perform high complexity testing. Testing is performed in the [facility] laboratories located at [address] [place] [address]. COVID CALLED TO [place], 11/13/2020 10:47 Performed By: #### C OV19 #### [address] [place] [address] Covid 19 Resultson 1 Covid 19 Results POSITIVE COVID-[address] Coronaviruses are common world-wide and are the cause of many common colds. SARS-COV2 is a new coronavirus that began circulating worldwide in 2019 so we are calling it COVID-19. It has been estimated that four out of five patients with COVID-19 will recover at home without the need for medical attention. Symptoms of COVID-19 include cough, fever, shortness of breath, loss of taste or smell and other flu-like symptoms including chills, sore muscles, sore throat, and headache. Severe illness is more common in older people and people with other health problems such as high blood pressure, obesity, and immune system problems. If the test is positive, you have COVID-19. You will be contacted by the ordering physicians office and instructed to remain on home isolation, in accordance with CDC guidelines. You may also be contacted by the [facility] to see if any of your close contacts may have been exposed to the virus and need to quarantine. If the test is negative, you likely do not have COVID-19 at this time, but you still may have a different illness that can spread to other people (like Influenza, or the Flu) and could still be at risk for getting COVID-19. We recommend that you stay away from other people to limit the spread of illness until your symptoms are improving and you are fever-free for 24 hours without the use of fever lowering medications such as acetaminophen or ibuprofen. No test is 100% accurate so if you are still concerned you may have COVID-19, talk to your doctor about the need to continue to stay away from others. Medicines Acetaminophen (Tylenol and others) is generally safe. Anti-inflammatory medications, such as Ibuprofen (Advil or Motrin) or Naproxen (Aleve) can also be used. Wqhh-hvm-[id number] cough and cold medicines can be used according to the instructions on the package. Some wtkp-jpu-uulsfug medicines also contain acetaminophen. Make sure you are not taking more than your recommended dose For those not hospitalized, there is no specific treatment available for this illness. Antibiotics do not treat Coronaviruses. Follow-Up Follow up with your doctor by scheduling a virtual visit or consider follow-up at one of our urgent care fever clinics. If you are having difficulty breathing, or are very weak and having difficulty standing, this is a medical emergency. Call 911 or have someone take you to the nearest emergency room immediately. If possible, wear a facemask. Additional guidance from the CDC for patients who tested POSITIVE for COVID-19 How to isolate: Isolate yourself in a specific room at home and limit your contact with others. Use a separate bathroom from other members of the household, when possible. Leave home only to get essential medical care. Do not go to work, school or public areas. Avoid using public transportation, ride-sharing, or taxis. Restrict contact with pets and other animals. If you must care for your pet or be around animals while you are sick, wash your hands before and after your interaction and wear a facemask. Make sure that shared spaces in the home have good airflow, such as by an air conditioner or an opened window, weather permitting. Personal Hygiene Procedures: Wear a face mask when in the same room as other people or pets. If a face mask interferes with your breathing, others should wear a mask when sharing space with you. Frequent hand-washing: wash your hands with soap and water for at least 20 seconds. If soap and water are not available, use alcohol-based hand cross tie tram loader. Avoid touching your eyes, nose, and mouth with unwashed hands. Household Hygiene Procedures: Avoid sharing personal household items such as dishes, glassware, cups, eating utensils, towels or bedding with other people or pets in your home. After use, these items should be washed with soap and hot water. Disinfect all high-touch surfaces every day with antibacterial cleaning solutions such as Lysol wipes, bleach, cleansers, etc. High-touch surfaces include tabletops, doorknobs, bathroom fixtures, toilets, phones, keyboards, tablets and bedside tables. Immediately clean any surfaces that may have blood, poop or body fluids on them, using antibacterial cleaning solutions such as Lysol wipes, bleach, cleansers, etc. If clothing or bedding come into contact with blood, poop or body fluids, they should be washed immediately. Follow the directions on the laundry detergent and clothing labels but hot water is recommended when possible. Stopping home isolation precautions: If possible, consult your doctor before stopping home isolation precautions. According to the CDC, you can discontinue home isolation precautions when you have met both of these criteria: Your fever and respiratory symptoms have been gone for 24 hours without the use of any medicines like ibuprofen (Motrin) and acetaminophen (Tylenol). It has been at least 10 days since your symptoms first appeared. If you are immunosuppressed OR you were admitted to the hospital for this, you should wait until it has been 14 days since your symptoms first appeared. Guidelines for Those Living With and/or Caring For Persons with COVID-19: Read and follow all the recommendations outlined in this handout. Do not permit visitors in the home unless there is an essential need. Wear a facemask when in the same room as the patient. Wear a facemask and gloves (disposable if available) when you touch or have contact with the patient's blood, poop, or body fluids including saliva, phlegm, nasal mucus, vomit or urine. Clean or throw away facemasks and gloves after use and wash your hands with soap and water. You will need to quarantine (stay away from others) for 14 days after your last contact with your family member with COVID-19. The person with COVID-19 is considered contagious 48 hours prior to symptoms beginning (or starting with the day of the positive test if they have no symptoms) for a total of 10 days. Additional resources: [facility] COVID Hotline at 4-330-7HTMTFL ( ). COVID-19 Careline at (available 24 hours per day, seven days a week if you or a loved one is experiencing anxiety related to the coronavirus pandemic). Clinical research opportunities: is conducting research studies to develop better testing and treatments for COVID. Do you want any information on how to participate Call [phone]. Websites: hospitals.org or www.CDC.gov Follow My Health / My [facility] (for other test results): Revised 09/15/2020 Electronic Signatures: Clarissa Romo (ADMIN) (Signature pending) Authored Last Updated: 13-Nov-2020 00:56 by [employer], [employer] (ADMIN) Normal [facility] CORONAVIRUS 2019 BY PCRon Lab Specimen Source Nasal, Nasopharyngeal Normal [facility] Comment on above: Order Comment: BRANDON CALLED TO GARFIELD, 11/13/2020 10:47 Performed By: #### C OV19 #### [facility] [id number] [place] [address] DATE OF SYMPTOM ONSET [[id number]]? [id number] Normal [facility] Comment on above: Order Comment: BRANDON CALLED TO [place], 11/13/2020 10:47 Performed By: #### C OV19 #### [facility] [address] [place] [address] Established Visit (Orthopaed ic Surgery)on 11-10-2020 Established Visit (Orthopaedic Surgery) Diagnoses/Problems Assessed PFS (patellofemoral syndrome) (719.46) (M22.2X9) Orders Knee pain, PFS (patellofemoral syndrome), Synovitis of knee Physical Therapy - General Referral Evaluation and Treatment Evaluate AND Treat Status: Active Requested for: 10Nov2020 Chief Complaint f/u Rt knee synovectomy/lateral release 10/19/20, 3 wks out Pt says her Rt knee is sore and stiff History of present illness 20-year-old female here for follow-up of her right knee. Arthroscopy lateral release and synovectomy states she is feeling much better no numbness or ting no fevers or chills no locking giving way. Wearing knee brace. Full-time she is noticing a little bit of skin irritation from the brace. She is been holding off on therapy. Physical exam General: No acute distress and breathing comfortably. Patient is pleasant and cooperative with the examination. Extremity Port is well approximated minimal knee effusion good range of motion no crepitus no instability compartments are soft calf is nontender Assessment Healing knee arthroscopy with lateral release Treatment plan 1. She will continue with her lateral stabilizer knee brace for her to get her sleeve to help with her skin irritation. 2. She is leaving for college next week for PT down in [place] I discussed with the [facility] in [place]. 3. 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 4. All of the patient's questions were answered. This note was prepared using voice recognition software. The details of this note are correct and have been reviewed, and corrected to the best of my ability. Some grammatical areas may persist related to the 1.618 Technology software Yasir Abreu MD Active Problems Problems Adjustment disorder with other symptom (309.89) (F43.29) Adjustment insomnia (307.41) (F51.02) Allergic rhinitis (477.9) (J30.9) Ankle sprain (845.00) (S93.409A) Asthma (493.90) (J45.909) Encounter for routine child health examination without abnormal findings (V20.2) (Z00.129) Foot sprain (845.10) (S93.609A) Hematuria (599.70) (R31.9) Involuntary movements (781.0) (R25.9) Knee pain (719.46) (M25.569) AYLIN (middle ear effusion), bilateral (381.4) (H65.93) Muscle twitching (781.0) (R25.3) PFS (patellofemoral syndrome) (719.46) (M22.2X9) Post-op pain (338.18) (G89.18) Synovitis of knee (727.09) (M65.9) Tic disorder, 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) Vaginal discharge (623.5) (N89.8) Vaginal itching (698.1) (N89.8) Vulvar irritation (624.8) (N90.89) Past Medical History Problems History of Acute left otitis media (382.9) (H66.92) Resolved Date: 27 Jun 2016 History of Asthma exacerbation (493.92) (J45.901) Resolved Date: 06 Dec 2016 History of Cough (786.2) (R05) Resolved Date: 07 Oct 2016 History of acute sinusitis (V12.69) (Z87.09) Resolved Date: 27 Jun 2016 History of backache (V13.59) (Z87.39) Resolved Date: 27 Jun 2016 History of fever (V13.89) (Z87.898) Resolved Date: 27 Jun 2016 History of Knee tendinitis (727.09) (M76.899) History of Strain of muscle, fascia, or tendon of lower back (846.9) (S39.012A) Resolved Date: 06 Dec 2016 History of Viral URI with cough (465.9) (J06.9) Resolved Date: 07 Oct 2016 Surgical History Problems Denied: History Of Prior Surgery History of Oral surgery Family History Mother Family history of hypertension (V17.49) (Z82.49) Sister Family history of asthma (V17.5) (Z82.5) Maternal Grandmother Family history of dementia (V17.2) (Z81.8) Family history of Parkinson disease, symptomatic Social History Problems Household: Younger siblings Maria T age 12 Never a smoker Allergies Medication Keppra Recorded By: Niru Jarquin; 07/26/2018 8:37:45 AM NonMedication Shellfish Hives;; Recorded By: Darwin Hudson; 07/03/2020 3:20:06 PM Current Meds Medication NameInstruction cloNIDine HCl - 0.1 MG Oral Tablettake 1 tab in morning and 1/2 tab in evening Minocycline HCl - 100 MG Oral Capsule Oxaprozin 600 MG Oral TabletTAKE 1 TABLET TWICE DAILY. Signatures Electronically signed by : Yasir Abreu MD; Nov 11 2020 5:46AM EST (Author) [facility] Post Op ([facility]thopaedic Surgery )on 10-21-2020 Post Op (Orthopaedic Surgery) Chief Complaint P/O Rt knee synovectomy/lateral release 10/19/20, 2 days out History of present illness 20-year-old female presented clinic today for her first postop follow-up visit status post right knee arthroscopy lateral release. She states that when she changed her medication from oxycodone to tramadol she felt much better. She has been taking mostly ibuprofen 800 mg which does help with her swelling and pain. She is ambulating with distance of a knee immobilizer and 2 crutches today. Only taken 1 dose of tramadol. She was having adverse reaction to oxycodone. She denies numbness tingling no fevers or chills. She says most of her pain seems to be lateral over the right knee which is expected. Physical exam General: No acute distress and breathing comfortably. Patient is pleasant and cooperative with the examination. Extremity Right knee is neurovascular intact sensation is intact. Range of motion not assessed. She does get full extension. She has mild edema of the right knee laterally over the lateral patellar retinaculum. Portal sites are well-healed well approximated without infection. She has no calf swelling or tenderness. Compartments are soft. 2+ pulses bilateral lower extremity. Diagnostics [ none] Procedure Sutures were removed Steri-Strips placed over the portal sites without complication. Assessment Status post right knee arthroscopic lateral release Treatment plan 1. Wound instructions were discussed with patient at this time. 2. She will continue with tramadol and ibuprofen as needed. We will discontinue the knee immobilizer at this time and place her in a lateral stabilizing knee brace which is to be worn at all times except for bathing. She can perform range of motion as tolerated in the brace. We will hold off on physical therapy at this time until her next appointment. 3. We will follow-up with us in 2 to 3 weeks for reevaluation without x-ray. She will be going back to school at [employer] the first few weeks in October so we will have to transfer physical therapy care down there at that time. 4. All of the patient's questions were answered. This note was prepared using voice recognition software. The details of this note are correct and have been reviewed, and corrected to the best of my ability. Some grammatical areas may persist related to the 1.618 Technology software Jaycob Kc PA-C Active Problems Problems Adjustment disorder with other symptom (309.89) (F43.29) Adjustment insomnia (307.41) (F51.02) Allergic rhinitis (477.9) (J30.9) Ankle sprain (845.00) (S93.409A) Asthma (493.90) (J45.909) Encounter for routine child health examination without abnormal findings (V20.2) (Z00.129) Foot sprain (845.10) (S93.609A) Hematuria (599.70) (R31.9) Involuntary movements (781.0) (R25.9) Knee pain (719.46) (M25.569) AYLIN (middle ear effusion), bilateral (381.4) (H65.93) Muscle twitching (781.0) (R25.3) PFS (patellofemoral syndrome) (719.46) (M22.2X9) Post-op pain (338.18) (G89.18) Synovitis of knee (727.09) (M65.9) Tic disorder, 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) Vaginal discharge (623.5) (N89.8) Vaginal itching (698.1) (N89.8) Vulvar irritation (624.8) (N90.89) Past Medical History Problems History of Acute left otitis media (382.9) (H66.92) Resolved Date: 27 Jun 2016 History of Asthma exacerbation (493.92) (J45.901) Resolved Date: 06 Dec 2016 History of Cough (786.2) (R05) Resolved Date: 07 Oct 2016 History of acute sinusitis (V12.69) (Z87.09) Resolved Date: 27 Jun 2016 History of backache (V13.59) (Z87.39) Resolved Date: 27 Jun 2016 History of fever (V13.89) (Z87.898) Resolved Date: 27 Jun 2016 History of Knee tendinitis (727.09) (M76.899) History of Strain of muscle, fascia, or tendon of lower back (846.9) (S39.012A) Resolved Date: 06 Dec 2016 History of Viral URI with cough (465.9) (J06.9) Resolved Date: 07 Oct 2016 Surgical History Problems Denied: History Of Prior Surgery History of Oral surgery Family History Mother Family history of hypertension (V17.49) (Z82.49) Sister Family history of asthma (V17.5) (Z82.5) Maternal Grandmother Family history of dementia (V17.2) (Z81.8) Family history of Parkinson disease, symptomatic Social History Problems Household: Younger siblings Maria T age 12 Never a smoker Allergies Medication Keppra Recorded By: Niru Jarquin; 07/26/2018 8:37:45 AM NonMedication Shellfish Hives;; Recorded By: Darwin Hudson; 07/03/2020 3:20:06 PM Current Meds Medication NameInstruction cloNIDine HCl - 0.1 MG Oral Tablettake 1 tab in morning and 1/2 tab in evening Minocycline HCl - 100 MG Oral Capsule Oxaprozin 600 MG Oral TabletTAKE 1 TABLET TWICE DAILY. oxyCODONE-Acetaminophen 5-325 MG Oral TabletTAKE 1 TABLET EVERY 6 HOURS NEEDED FOR PAIN. traMADol HCl - 50 MG Oral TabletTAKE 1 TABLET Every 6 hours Signatures Electronically signed b (more content not included)... Normal [facility] HCG,SERUM QUALITATIVEon 09-30 HCG,SERUM QUALITATIVE Negative Normal Negative [facility] Comment on above: Performed By: #### H CGS #### [address] [id number] Preop Checkliston 10-19-2020 Preop Checklist Preop Checklist: Preop Checklist: Arrival [id number] Arrival Time09:57 Procedure Typelooking at my right knee stated pt NPO [id number] 23:00 ID Band Onyes Allergy Bandyes Consent Signedpending H&P Completepending Anesthesia Assessment Completedpending EKG Performedsee results tab HCG Urine Testblood drawn and sent Chlorhexadine Bath Givennot applicable Nasal Antiseptic Appliednot applicable Hair Washednot applicable Soap and water bath with hair shampoo the night before surgerynot applicable Hat placed on infant prior to transportnot applicable SCD's Appliedno DEION Hose Appliedyes Denturespermanent retainer on the bootom teeth Prostheticsnot applicable Hearing Aidsnot applicable Valuables Securednot applicable Glasses / Contactsnot applicable Cardiovascular Assessment: Apicalsee aesthesia Radial Pulsespalpable Pedal Pulsessee aesthesia Extremitieswarm Central Venous Access Devicena Respiratory Assessment: Respirationsregular Air Exchangesee aesthesia Breath Soundssee aesthesia Neurological Assessment: Level of Consciousnessalert, oriented Mobilitymoves all extremities Able to Express Selfyes Age Appropriateyes Emotional Statuscalm Preop Education: Surgical Site Infection Preventionyes Pain Scales and Managementyes Language / Communication: Language / CommunicationEnglish Electronic Signatures: Sophie Ferguson (GIL) (Signed 19-Oct-2020 10:00) Authored: Preop Checklist Last Updated: 19-Oct-2020 10:00 by Sophie Ferguson (RN) Normal [facility] CORONAVIRUS 2019, SCREEN ASY MPTOMATICon 10-17-2020 CORONAVIRUS 2019,PCR NOT DETECTED Normal Not Detected [facility] Comment on above: Result Comment: . This assay is designed to detect the N, ORF1ab and/or S genes of SARS-CoV-2 via nucleic acid amplification. A Negative (NOT DETECTED) result does not preclude 2019-nCoV infection since the adequacy of sample collection and/or low viral burden may result in presence of viral nucleic acids below the clinical sensitivity of this test method. Negative (NOT DETECTED) result should not be used as the sole basis for treatment or other patient management decisions. Rather negative results should be combined with clinical observations, patient history, and epidemiological information to make patient management decisions. Fact sheet for providers: https://www.fda.gov/media/740303/download Fact sheet for patients: https://www.fda.gov/media/458324/download This test has received FDA Emergency Use Authorization (EUA) and has been verified by [facility] ([facility]). This test is only authorized for the duration of time that circumstances exist to justify the authorization of the emergency use of in vitro diagnostic tests for the detection of SARS-CoV-2 virus and/or diagnosis of COVID-19 infection under section 564(b)(1) of the Act, 21 U.S.C. 360bbb-3(b)(1), unless the authorization is terminated or revoked sooner. [facility] is certified under CLIA-88 as qualified to perform high complexity testing. Testing is performed in the [facility] laboratories located at [address] [place] [address]. Performed By: #### C OVSC #### [address] [place] [address] Covid 19 Resultson 0 Covid 19 Results NEGATIVE COVID-[address] Coronaviruses are common world-wide and are the cause of many common colds. SARS-COV2 is a new coronavirus that began circulating worldwide in 2019 so we are calling it COVID-19. It has been estimated that four out of five patients with COVID-19 will recover at home without the need for medical attention. Symptoms of COVID-19 include cough, fever, shortness of breath, loss of taste or smell and other flu-like symptoms including chills, sore muscles, sore throat, and headache. Severe illness is more common in older people and people with other health problems such as high blood pressure, obesity, and immune system problems. If the test is positive, you have COVID-19. You will be contacted by the ordering physicians office and instructed to remain on home isolation, in accordance with CDC guidelines. You may also be contacted by the [facility] to see if any of your close contacts may have been exposed to the virus and need to quarantine. If the test is negative, you likely do not have COVID-19 at this time, but you still may have a different illness that can spread to other people (like Influenza, or the Flu) and could still be at risk for getting COVID-19. We recommend that you stay away from other people to limit the spread of illness until your symptoms are improving and you are fever-free for 24 hours without the use of fever lowering medications such as acetaminophen or ibuprofen. No test is 100% accurate so if you are still concerned you may have COVID-19, talk to your doctor about the need to continue to stay away from others. Medicines Acetaminophen (Tylenol and others) is generally safe. Anti-inflammatory medications, such as Ibuprofen (Advil or Motrin) or Naproxen (Aleve) can also be used. Lbgl-edb-tnqgrcm cough and cold medicines can be used according to the instructions on the package. Some uhsr-szc-jhzrrml medicines also contain acetaminophen. Make sure you are not taking more than your recommended dose For those not hospitalized, there is no specific treatment available for this illness. Antibiotics do not treat Coronaviruses. Follow-Up Follow up with your doctor by scheduling a virtual visit or consider follow-up at one of our urgent care fever clinics. If you are having difficulty breathing, or are very weak and having difficulty standing, this is a medical emergency. Call 911 or have someone take you to the nearest emergency room immediately. If possible, wear a facemask. Additional guidance from the CDC for patients who tested POSITIVE for COVID-19 How to isolate: Isolate yourself in a specific room at home and limit your contact with others. Use a separate bathroom from other members of the household, when possible. Leave home only to get essential medical care. Do not go to work, school or public areas. Avoid using public transportation, ride-sharing, or taxis. Restrict contact with pets and other animals. If you must care for your pet or be around animals while you are sick, wash your hands before and after your interaction and wear a facemask. Make sure that shared spaces in the home have good airflow, such as by an air conditioner or an opened window, weather permitting. Personal Hygiene Procedures: Wear a face mask when in the same room as other people or pets. If a face mask interferes with your breathing, others should wear a mask when sharing space with you. Frequent hand-washing: wash your hands with soap and water for at least 20 seconds. If soap and water are not available, use alcohol-based hand cross tie tram loader. Avoid touching your eyes, nose, and mouth with unwashed hands. Household Hygiene Procedures: Avoid sharing personal household items such as dishes, glassware, cups, eating utensils, towels or bedding with other people or pets in your home. After use, these items should be washed with soap and hot water. Disinfect all high-touch surfaces every day with antibacterial cleaning solutions such as Lysol wipes, bleach, cleansers, etc. High-touch surfaces include tabletops, doorknobs, bathroom fixtures, toilets, phones, keyboards, tablets and bedside tables. Immediately clean any surfaces that may have blood, poop or body fluids on them, using antibacterial cleaning solutions such as Lysol wipes, bleach, cleansers, etc. If clothing or bedding come into contact with blood, poop or body fluids, they should be washed immediately. Follow the directions on the laundry detergent and clothing labels but hot water is recommended when possible. Stopping home isolation precautions: If possible, consult your doctor before stopping home isolation precautions. According to the CDC, you can discontinue home isolation precautions when you have met both of these criteria: Your fever and respiratory symptoms have been gone for 24 hours without the use of any medicines like ibuprofen (Motrin) and acetaminophen (Tylenol). It has been at least 10 days since your symptoms first appeared. If you are immunosuppressed OR you were admitted to the hospital for this, you should wait until it has been 14 days since your symptoms first appeared. Guidelines for Those Living With and/or Caring For Persons with COVID-19: Read and follow all the recommendations outlined in this handout. Do not permit visitors in the home unless there is an essential need. Wear a facemask when in the same room as the patient. Wear a facemask and gloves (disposable if available) when you touch or have contact with the patient's blood, poop, or body fluids including saliva, phlegm, nasal mucus, vomit or urine. Clean or throw away facemasks and gloves after use and wash your hands with soap and water. You will need to quarantine (stay away from others) for 14 days after your last contact with your family member with COVID-19. The person with COVID-19 is considered contagious 48 hours prior to symptoms beginning (or starting with the day of the positive test if they have no symptoms) for a total of 10 days. Additional resources: [facility] COVID Hotline at 5-899-1MNBLRJ ( ). COVID-19 Careline at (available 24 hours per day, seven days a week if you or a loved one is experiencing anxiety related to the coronavirus pandemic). Clinical research opportunities: is conducting research studies to develop better testing and treatments for COVID. Do you want any information on how to participate Call [phone]. Websites: hospitals.org or www.CDC.gov Follow My Health / My [facility] (for other test results): Revised 09/15/2020 Electronic Signatures: Clarissa [employer] (ADMIN) (Signature pending) Authored Last Updated: 16-Oct-2020 23:08 by Clarissa [employer] (ADMIN) [facility] CORONAVIRUS 2019, SCREEN ASY MPTOMATICon 10-16-2020 Lab Specimen Source Nasal, Nasopharyngeal [facility] Comment on above: Performed By: #### C OVSC #### [facility] [address] [place] [address] Coronavirus 2019 RNA by PCR, Screening Asymptomticon 10-16-2020 Coronavirus 2019 RNA by PCR, Screening Asymptomtic NOT DETECTED See Below -[facility] Work Phone: Comment on above: SOURCE: Nasal, Nasop haryngealReference Range: Not Detected.This assay is designed to detect the N, ORF1ab and/or S genes of SARS-CoV-2 via nucleic acid amplification. A Negative (NOT DETECTED) result does not preclude 2019-nCoV infection since the adequacy of sample collection and/or low viral burden may result in presence of viral nucleic acids below the clinical sensitivity of this test method. Negative (NOT DETECTED) result should not be used as the sole basis for treatment or other patient management decisions. Rather negative results should be combined with clinical observations, patient history, and epidemiological information to make patient management decisions.Fact sheet for providers: https://www.fda.gov/media/043985/downloadFact sheet for patients: https://www.fda.gov/media/978706/downloadThis test has received FDA Emergency Use Authorization (EUA) and has been verified by [facility] ([facility]). This test is only authorized for the duration of time that circumstances exist to justify the authorization of the emergency use of in vitro diagnostic tests for the detection of SARS-CoV-2 virus and/or diagnosis of COVID-19 infection under section 564(b)(1) of the Act, 21 U.S.C. 360bbb-3(b)(1), unless the authorization is terminated or revoked sooner. [facility] is certified under CLIA-88 as qualified to perform high complexity testing. Testing is performed in the [facility] laboratories located at [address] [place] [address]. 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 (procedure may be cancelled if no local [place] truck driver), center location, insurance information, remove jewerly/piercings, bring glasses/contacts case Prep Instructions Reviewedn/a Stated Reason for Admissionpain right knee having surgery to clean out Primary Contact Name and NumberCarla Mendieta [phone] mom Patient Belongingsremains with patient Patient Belongings Remaining with Patientclothing; cell phone/electronics Medications Brought to Hospitalyes General Health: Weight in kg65 kilogram(s) Weight in uuw074.3 pound(s) Weight Methodstated Height in feet5 feet Height in inches1 inch(es) Height in cm154.9 centimeter(s) Height Methodstated BMI (kg/m2)27.09 square meter Patient or Family Member Reaction to Anesthesiano previous reaction; no previous family member reaction; no metal implants wisdom teeth Blood Avoidance/Restrictionsno ne Previous Transfusion Reactionno Health Mgmt: Symptoms/Conditions Managed at HomeHEENT (head, eyes, ears, nose, throat); obstetric/gynecologic; respiratory Are You no Are You Currently Breastfeedingno HEENT Symptoms/Conditions Commentpermanent retainer lower [place] [facility] Respiratory Symptoms/Conditionsasthm a Respiratory Management Strategiesmedication therapy Barriers to Managing Healthnone Relationship/Environ: Living Arrangementshouse Lives Withparent(s); sibling(s) Living Environment Commentsparents will be home Resource/Environmental Concernsnone Substance: Current or Former Substance Use never: Cigarette/Tobacco, e-Cigarette/Vaping, Street Drugs YES: Alcohol Alcohol Use Statuscurrent alcohol Alcohol Amount1-2 drinks Alcohol Frequencymonthly or less Alcohol Typeliquor Risk Screens: COVID-19 Screening Completedno exposure or symptoms Advance Directive/DNRno During the past month, have you often been bothered by feeling down, depressed or hopelessno During the past month, have you often had little interest or pleasure in doing thingsno Have you had any thoughts of harming yourselfno Have you had any thoughts of harming anyone elseno Are you or have you been threatened or abused physically,emotionally or sexually abused by anyoneno Do you feel UNSAFE going back to the place you are livingno Patient is Able to be Assessed for Learningyes Factors Influencing Readiness to Learninterest in learning Factors that Impact Ability to Learnnone Devices/Methods Used to Communicateglasses Learning Preferencesverbal instruction; written material Cultural Considerationsnone Developmental Considerationsnone Yazidism Considerationsnone Other learner availableno [place] RiskPatient location auto qualifies him/her for HIGH RISK. Are there any cultural, spiritual, temple practices/values/needs that are important for us to knowno Do you want a visit/item from [facility] Would you like your Vocational Training Teacher/Explosive Man notifiedno Pain Scalenumerical 0-10 Pain Scale Educationteaching provided Current Pain Level0 = None Acceptable Pain Level7 = Severe Chronic Painno Information Review: Allergies, Home Meds and Significant Events have been Reviewed and Verified with Patient/Familyyes Electronic Signatures: Sophie Ferguson (RN) (Signed 19-Oct-2020 09:55) Authored: Initial Info, Risk Screens, Additional Information [place] (RN) (Signed 15-Oct-2020 15:25) Authored: Initial Info, General Health, Health Mgmt, Relationship/Environ, Substance, Risk Screens Last Updated: 19-Oct-2020 09:55 by Sophie Ferguson (RN) Normal [facility] APTTon 10-14-2020 aPTT Coag (Bld) [Time] 30 s Normal 25 - 35 [facility] Comment on above: Result Comment: THE APTT IS NO LONGER USED FOR MONITORING UNFRACTIONATED HEPARIN THERAPY. FOR MONITORING HEPARIN THERAPY, USE THE HEPARIN ASSAY. Performed By: #### A PTT #### [address] [id number] Activated Partial Thrombopla stin Timeon 10-14-2020 aPTT Coag (PPP) [Time] 30 {sec} 25 - 35 -[facility] Work Phone: Comment on above: THE APTT IS NO LONGE R USED FOR MONITORING UNFRACTIONATED HEPARIN THERAPY. FOR MONITORING HEPARIN THERAPY, USE THE HEPARIN ASSAY. CBC AND DIFFERENTIALon 10-14 % AUTOMATED IMMATURE GRAN 0.4 % Normal 0.0 - 0.9 [facility] Comment on above: Result Comment: Eunice ture Granulocyte Count (IG) includes promyelocytes, myelocytes and metamyelocytes but does not include bands. Percent differential counts (%) should be interpreted in the context of the absolute cell counts (cells/L). Performed By: #### C BCDF #### [address] [id number] Basophils (Bld) [#/Vol] 0.01 10*3/uL Normal 0.00 - 0.10 [facility] Comment on above: Performed By: #### C BCDF #### [address] [id number] Basophils/100 WBC (Bld) 0.2 % Normal 0.0 - 2.0 [facility] Comment on above: Performed By: #### C BCDF #### [address] [id number] Eosinophils (Bld) [#/Vol] 0.05 10*3/uL Normal 0.00 - 0.70 [facility] Comment on above: Performed By: #### C BCDF #### [address] [id number] Eosinophils/100 WBC (Bld) 1.0 % Normal 0.0 - 6.0 [facility] Comment on above: Performed By: #### C BCDF #### [address] [id number] Erythrocyte distribution width (RBC) [Ratio] 11.8 % Normal 11.5 - 14.5 [facility] Comment on above: Performed By: #### C BCDF #### [address] [id number] Hematocrit (Bld) [Volume fraction] 36.4 % Normal 36.0 - 46.0 [facility] Comment on above: Performed By: #### C BCDF #### [address] [id number] Hemoglobin (Bld) [Mass/Vol] 12.6 g/dL Normal 12.0 - 16.0 [facility] Comment on above: Performed By: #### C BCDF #### [address] [id number] Lymphocytes (Bld) [#/Vol] 1.91 10*3/uL Normal 1.20 - 4.80 [facility] Comment on above: Performed By: #### C BCDF #### [address] [id number] Lymphocytes/100 WBC (Bld) 37.8 % Normal 13.0 - 44.0 [facility] Comment on above: Performed By: #### C BCDF #### [address] [id number] MCHC (RBC) [Mass/Vol] 34.6 g/dL Normal 32.0 - 36.0 [facility] Comment on above: Performed By: #### C BCDF #### [address] [id number] MCV (RBC) [Entitic vol] 95 fL Normal 80 - 100 [facility] Comment on above: Performed By: #### C BCDF #### [address] [id number] Monocytes (Bld) [#/Vol] 0.48 10*3/uL Normal 0.10 - 1.00 [facility] Comment on above: Performed By: #### C BCDF #### [address] [id number] Monocytes/100 WBC (Bld) 9.5 % Normal 2.0 - 10.0 [facility] Comment on above: Performed By: #### C BCDF #### [address] [id number] Neutrophils (Bld) [#/Vol] 2.58 10*3/uL Normal 1.20 - 7.70 [facility] Comment on above: Performed By: #### C BCDF #### [address] [id number] Neutrophils/100 WBC (Bld) 51.1 % Normal 40.0 - 80.0 [facility] Comment on above: Performed By: #### C BCDF #### [address] [id number] Platelets (Bld) [#/Vol] 181 10*3/uL Normal 150 - 450 [facility] Comment on above: Performed By: #### C BCDF #### [address] [id number] RBC 3.85 x10E12/L Low 4.00 - 5.20 [facility] Comment on above: Performed By: #### C BCDF #### [address] [id number] WBC (Bld) [#/Vol] 5.1 10*3/uL Normal 4.4 - 11.3 [facility] Comment on above: Performed By: #### C BCDF #### [address] [id number] COMPREHENSIVE PANELon 2019 Albumin [Mass/Vol] 4.0 g/dL Normal 3.4 - 5.0 [facility] Comment on above: Performed By: #### C MP #### [address] [id number] ALP [Catalytic activity/Vol] 57 U/L Normal 33 - 110 [facility] Comment on above: Performed By: #### C MP #### [address] [id number] ALT [Catalytic activity/Vol] 13 U/L Normal 7 - 45 [facility] Comment on above: Result Comment: Yulia ents treated with Sulfasalazine may generate falsely decreased results for ALT. Performed By: #### C MP #### [address] [id number] Anion gap [Moles/Vol] 11 mmol/L Normal 10 - 20 [facility] Comment on above: Performed By: #### C MP #### [address] [id number] AST [Catalytic activity/Vol] 15 U/L Normal 9 - 39 [facility] Comment on above: Performed By: #### C MP #### [address] [id number] Bilirubin [Mass/Vol] 0.6 mg/dL Normal 0.0 - 1.2 [facility] Comment on above: Performed By: #### C MP #### [address] [id number] Calcium [Mass/Vol] 9.1 mg/dL Normal 8.6 - 10.3 [facility] Comment on above: Performed By: #### C MP #### [address] [id number] Chloride [Moles/Vol] 109 mmol/L High 98 - 107 [facility] Comment on above: Performed By: #### C MP #### [address] [id number] Creatinine [Mass/Vol] 0.85 mg/dL Normal 0.50 - 1.05 [facility] Comment on above: Performed By: #### C MP #### [address] [id number] GFR- AM. >60 Normal >60 [facility] Comment on above: Result Comment: CALC ULATIONS OF ESTIMATED GFR ARE PERFORMED USING THE MDRD STUDY EQUATION FOR THE IDMS-TRACEABLE CREATININE METHODS. CLIN CHEM 2007;53:766-72 Performed By: #### C MP #### [address] [id number] GFR-NON AM. >60 Normal >60 [facility] Comment on above: Performed By: #### C MP #### [address] [id number] Glucose [Mass/Vol] 86 mg/dL Normal 74 - 99 [facility] Comment on above: Performed By: #### C MP #### [address] [id number] HCO3 (Bld) [Moles/Vol] 23 mmol/L Normal 21 - 32 [facility] Comment on above: Performed By: #### C MP #### [address] [id number] Potassium [Moles/Vol] 3.7 mmol/L Normal 3.5 - 5.3 [facility] Comment on above: Performed By: #### C MP #### [address] [id number] Protein [Mass/Vol] 6.7 g/dL Normal 6.4 - 8.2 [facility] Comment on above: Performed By: #### C MP #### [address] [id number] Sodium [Moles/Vol] 139 mmol/L Normal 136 - 145 [facility] Comment on above: Performed By: #### C MP #### [address] [id number] Urea nitrogen [Mass/Vol] 10 mg/dL Normal 6 - 23 [facility] Comment on above: Performed By: #### C MP #### [address] [id number] Complete Blood Count + Diffe rential 10-14-2020 Basophils (Bld) [#/Vol] 0.01 {x10E9/L} See Below [facility] Work Phone: Comment on above: Reference Range: 0.0 0 - 0.10 Basophils/100 WBC (Bld) 0.2 % 0.0 - 2.0 [facility] Work Phone: Eosinophils (Bld) [#/Vol] 0.05 {x10E9/L} See Below [facility] Work Phone: Comment on above: Reference Range: 0.0 0 - 0.70 Eosinophils/100 WBC (Bld) 1.0 % 0.0 - 6.0 [facility] Work Phone: Erythrocyte distribution width (RBC) [Ratio] 11.8 % See Below [facility] Work Phone: Comment on above: Reference Range: 11. 5 - 14.5 Hematocrit (Bld) [Volume fraction] 36.4 % See Below [facility] [place] Work Phone: Comment on above: Reference Range: 36. 0 - 46.0 Hemoglobin (Bld) [Mass/Vol] 12.6 g/dL See Below [facility] [place] Work Phone: Comment on above: Reference Range: 12. 0 - 16.0 Lymphocytes (Bld) [#/Vol] 1.91 {x10E9/L} See Below [facility] [place] Work Phone: Comment on above: Reference Range: 1.2 0 - 4.80 Lymphocytes/100 WBC (Bld) 37.8 % See Below [facility] Work Phone: Comment on above: Reference Range: 13. 0 - 44.0 MCHC (RBC) [Mass/Vol] 34.6 g/dL See Below [facility] Work Phone: Comment on above: Reference Range: 32. 0 - 36.0 MCV (RBC) [Entitic vol] 95 fL 80 - 100 [facility] Work [facility]: Monocytes (Bld) [#/Vol] 0.48 {x10E9/L} See Below [facility] [place] Work Phone: Comment on above: Reference Range: 0.1 0 - 1.00 Monocytes/100 WBC (Bld) 9.5 % 2.0 - 10.0 [facility] [place] Work Phone: Neutrophils (Bld) [#/Vol] 2.58 {x10E9/L} See Below [facility] [place] Work Phone: Comment on above: Reference Range: 1.2 0 - 7.70 Neutrophils/100 WBC (Bld) 51.1 % See Below [facility] [place] Work Phone: Comment on above: Reference Range: 40. 0 - 80.0 Platelets (Bld) [#/Vol] 181 {x10E9/L} 150 - 450 [facility] [employer] Work Phone: RBC (Bld) [#/Vol] 3.85 {x10E12/L} below low threshold See Below [facility] [place] Work Phone: Comment on above: Reference Range: 4.0 0 - 5.20 WBC (Bld) [#/Vol] 5.1 {x10E9/L} 4.4 - 11.3 [facility] [employer] Work Phone: Complete Blood Count + Differential 0.4 % 0.0 - 0.9 [facility] [employer] Work Phone: Comment on above: Immature Granulocyte Count (IG) includes promyelocytes, myelocytes and metamyelocytes but does not include bands. Percent differential counts (%) should be interpreted in the context of the absolute cell counts (cells/L). Hematologyon 10-14-2020 INR Coag (PPP) [Relative time] 1.1 {INR} 0.9 - 1.1 [facility] [employer] Work Phone: PT Coag (PPP) [Time] 12.8 {sec} See Below [facility] [employer] Work Phone: Comment on above: Reference Range: 10. 1 - 13.3 Metabolic Panelon 10-14-2020 ALP [Catalytic activity/Vol] 57 U/L 33 - 110 [facility] [employer] Work Phone: [phone] Anion gap [Moles/Vol] 11 mmol/L 10 - 20 - [facility] [employer] Work Phone: [phone] Bilirubin [Mass/Vol] 0.6 mg/dL 0.0 - 1.2 [facility] [employer] Work Phone: [phone] Calcium [Mass/Vol] 9.1 mg/dL 8.6 - 10.[address] Work Phone: Chloride [Moles/Vol] 109 mmol/L above high threshold 98 - 107 [facility] Work Phone: CO2 [Moles/Vol] 23 mmol/L 21 - 32 [facility] [place] Work Phone: Creatinine [Mass/Vol] 0.85 mg/dL See Below [facility] Work Phone: Comment on above: Reference Range: 0.5 0 - 1.05 Glucose [Mass/Vol] 86 mg/dL 74 - [address] [facility] [address] [facility] Work Phone: Potassium [Moles/Vol] 3.7 mmol/L 3.5 - 5.3 [facility] Work Phone: Protein [Mass/Vol] 6.7 g/dL 6.4 - 8.[address] [facility] [address] [facility] Work Phone: Sodium [Moles/Vol] 139 mmol/L 136 - [address] [facility] [address] [facility] Work Phone: Urea nitrogen [Mass/Vol] 10 mg/dL 6 - 23 [facility] Work Phone: Otheron 10-14-2020 Albumin BCP dye [Mass/Vol] 4.0 g/dL 3.4 - 5.0 [facility] Work Phone: ALT With P-5'-P [Catalytic activity/Vol] 13 U/L 7 - 45 [facility] Work Phone: Comment on above: Patients treated wit h Sulfasalazine may generate falsely decreased results for ALT. AST With P-5'-P [Catalytic activity/Vol] 15 U/L 9 - 39 [facility] Work Phone: >60 >60 [facility] Work Phone: Comment on above: CALCULATIONS OF CHI MATED GFR ARE PERFORMED USING THE MDRD STUDY EQUATION FOR THE IDMS-TRACEABLE CREATININE METHODS. CLIN CHEM 2007;53:766-72 PT/INRon 10-14-2020 PT Coag (PPP) [Time] 12.8 s Normal 10.1 - 13.3 [facility] Comment on above: Performed By: #### P TINR #### [address] [id number] PT, INR 1.1 Normal 0.9 - 1.1 [facility] Comment on above: Performed By: #### P TINR #### [address] [id number] Established Visit (Orthopaed ic Surgery)on 10-13-2020 Established Visit (Orthopaedic Surgery) Chief Complaint Pre-Op RT knee arthroscopic debridement, possible lateral release 10/19/2020 This patient has pain in the knee that is worsening. The pain increases with activity and with weightbearing, and interferes with daily activities. There is pain with range of motion, limited range of motion, crepitus and swelling. The symptoms have worsened in spite of extensive medical treatment, therapy, and external support. This is the preop visit to discuss the risks and benefits of the knee arthroscopy surgery. These risks were fully explained to the patient. With this, and any surgery, infection is a risk, this is usually 1 to 2%, even higher in diabetics, persons with rheumatoid arthritis, previous surgeries, on oral steroid medications, and obesity. All of these issues were properly addressed. We always assure all sterile techniques will be followed. Pulmonary embolism and blood clots are also discussed with the patient. We discussed that these can be fatal complications to the surgery. It is explained to the patient that the use of thromboembolic stockings, foot pumps, incentive spirometer's, early mobility is the standard of care for prevention of blood clots. Patient's preoperative range of motion is[ degrees ]degrees. It is explained to the patient that this type of surgery is to decrease arthritis pain and sometimes stiffness may occur. It is important that the patient go to physical therapy postoperatively. All of the patient's questions and concerns were answered. This note was prepared using voice recognition software. The details of this note are correct and have been reviewed, and corrected to the best of my ability. Some grammatical areas may persist related to the 1.618 [employer] software Jaycob Kc PA-C Active Problems Problems Adjustment disorder with other symptom (309.89) (F43.29) Adjustment insomnia (307.41) (F51.02) Allergic rhinitis (477.9) (J30.9) Ankle sprain (845.00) (S93.409A) Asthma (493.90) (J45.909) Encounter for routine child health examination without abnormal findings (V20.2) (Z00.129) Foot sprain (845.10) (S93.609A) Hematuria (599.70) (R31.9) Involuntary movements (781.0) (R25.9) Knee pain (719.46) (M25.569) AYLIN (middle ear effusion), bilateral (381.4) (H65.93) Muscle twitching (781.0) (R25.3) PFS (patellofemoral syndrome) (719.46) (M22.2X9) Tic disorder, 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) Vaginal discharge (623.5) (N89.8) Vaginal itching (698.1) (N89.8) Vulvar irritation (624.8) (N90.89) Past Medical History Problems History of Acute left otitis media (382.9) (H66.92) Resolved Date: 27 Jun 2016 History of Asthma exacerbation (493.92) (J45.901) Resolved Date: 06 Dec 2016 History of Cough (786.2) (R05) Resolved Date: 07 Oct 2016 History of acute sinusitis (V12.69) (Z87.09) Resolved Date: 27 Jun 2016 History of backache (V13.59) (Z87.39) Resolved Date: 27 Jun 2016 History of fever (V13.89) (Z87.898) Resolved Date: 27 Jun 2016 History of Knee tendinitis (727.09) (M76.899) History of Strain of muscle, fascia, or tendon of lower back (846.9) (S39.012A) Resolved Date: 06 Dec 2016 History of Viral URI with cough (465.9) (J06.9) Resolved Date: 07 Oct 2016 Surgical History Problems Denied: History Of Prior Surgery History of Oral surgery Family History Mother Family history of hypertension (V17.49) (Z82.49) Sister Family history of asthma (V17.5) (Z82.5) Maternal Grandmother Family history of dementia (V17.2) (Z81.8) Family history of Parkinson disease, symptomatic Social History Problems Household: Younger siblings Maria T age 12 Never a smoker Allergies Medication Keppra Recorded By: Niru Jarquin; 07/26/2018 8:37:45 AM NonMedication Shellfish Hives;; Recorded By: Darwin Hudson; 07/03/2020 3:20:06 PM Current Meds Medication NameInstruction cloNIDine HCl - 0.1 MG Oral Tablettake 1 tab in morning and 1/2 tab in evening Minocycline HCl - 100 MG Oral Capsule Oxaprozin 600 MG Oral TabletTAKE 1 TABLET TWICE DAILY. Signatures Electronically signed by : Jaycob Kc PA-C; Oct 14 2020 7:54AM EST (Author) Normal [employer] Established Visit (Orthopaed ic Surgery)on 08-26-2020 Established Visit (Orthopaedic Surgery) Diagnoses/Problems Assessed PFS (patellofemoral syndrome) (719.46) (M22.2X9) Orders PFS (patellofemoral syndrome) Start: Oxaprozin 600 MG Oral Tablet; TAKE 1 TABLET TWICE DAILY We have injected a steroid medicine to help reduce swelling.; Status:Complete; Done: 26Aug2020 Administered: Betamethasone Combo 6 (3-3) MG/ML Injection Suspension (Betamethasone Sod Phos AND Acet) Administered: Lidocaine HCl - 1 % Injection Solution Chief Complaint F/U RT PF Arthritis/PFS, no xrays today cortisone injection 05/08/20 Pt says her injection didn't help very much History of present illness 20-year-old female here for follow-up of her right knee. 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 She had an MRI a year ago which showed hypertrophy in the office area with patellofemoral impingement. At that time we discussed surgical versus nonsurgical treatments she is thinking about surgery sometime over [place] break she had a fair result from previous cortisone junction in April she denies any new injury she is not having locking or giving way no numbness or tingling no fevers or chills. She tried Mobic ibuprofen and naproxen none of them seem to help a whole heck of a lot. Physical exam General: No acute distress and breathing comfortably. Patient is pleasant and cooperative with the examination. Extremity Right knee has moderate diffuse tenderness minimal knee effusion no instability varus or valgus moderate pain on patellofemoral compression testing anterior posterior drawer test negative Alan test is negative Diagnostics [ none] Procedure Before aspiration/injection, the risks and benefits of this procedure including infection, local skin irritation, skin atrophy, calcification, continued pain or discomfort, elevated blood sugar, burning failure to relieve pain, possible late infection were all discussed with the patient Postprocedure discomfort can be alleviated with additional medication, ice, elevation, and rest over the first 24 hours as recommended The patient verbalized understanding and wanted to proceed with planned procedure After informed consent was provided patient identification was confirmed and allergies were verified, the patient was appropriately positioned. The joint was prepped in the usual sterile manner to provide a sterile environment. The skin was anesthetized with ethyl chloride spray. The aspiration/injection was performed with standard technique. The joint was injected with right knee 2 cc Celestone 4 cc lidocaine. The needle was withdrawn and the puncture site was secured with a Band-Aid The patient tolerated procedure well without complication Assessment Right knee pain due to patellofemoral pain syndrome Treatment plan 1. The natural history of the condition and its associated treatment alternatives including surgical and nonsurgical options were discussed with the patient at length. 2. She can try Daypro instead of the Relafen. She is thinking of knee arthroscopy sometime over [place] break but she is going to double check with her schedule. We discussed K taping versus continued knee bracing. We gave her a note to be out of chair today and to have some limitations as far as her chair goes because of the persistent knee inflammation and instability. 3. [ ] 4. All of the patient's questions were answered. This note was prepared using voice recognition software. The details of this note are correct and have been reviewed, and corrected to the best of my ability. Some grammatical areas may persist related to the 1.618 Technology software Yasir Abreu MD Active Problems Problems Adjustment disorder with other symptom (309.89) (F43.29) Adjustment insomnia (307.41) (F51.02) Allergic rhinitis (477.9) (J30.9) Ankle sprain (845.00) (S93.409A) Asthma (493.90) (J45.909) Encounter for routine child health examination without abnormal findings (V20.2) (Z00.129) Foot sprain (845.10) (S93.609A) Hematuria (599.70) (R31.9) Involuntary movements (781.0) (R25.9) Knee pain (719.46) (M25.569) AYLIN (middle ear effusion), bilateral (381.4) (H65.93) Muscle twitching (781.0) (R25.3) PFS (patellofemoral syndrome) (719.46) (M22.2X9) Tic disorder, 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 Normal [facility] Established Visit (Orthopaed ic Surgery)on 05-08-2020 Established Visit (Orthopaedic Surgery) Chief Complaint f/u Rt knee PFS s/p cortisone injection 01/17/20 possible inj today History of present illness 20-year-old female chronic right-sided knee pain due to arthritis. Reports injection back in December had a pretty good improvement with the injection but she is having increasing pain and discomfort. She is not a new injury she has stiffness and pain in her knee difficulty bearing weight difficulty stand for prolonged period time. I did give her a prescription for naproxen that did not seem to be helping a whole lot so her primary care physician sent in Indocin and that seems to be working okay for but she is looking for a stronger anti-inflammatory medication at this time Physical exam General: No acute distress and breathing comfortably. Patient is pleasant and cooperative with the examination. Extremity Right knee has crepitus range of motion mild tenderness palpation medial and lateral joint space no instability brisk cap refill compartments are soft calf is nontender Diagnostics Chronic right-sided knee pain due to patellofemoral arthritis Procedure Before aspiration/injection, the risks and benefits of this procedure including infection, local skin irritation, skin atrophy, calcification, continued pain or discomfort, elevated blood sugar, burning failure to relieve pain, possible late infection were all discussed with the patient Postprocedure discomfort can be alleviated with additional medication, ice, elevation, and rest over the first 24 hours as recommended The patient verbalized understanding and wanted to proceed with planned procedure After informed consent was provided patient identification was confirmed and allergies were verified, the patient was appropriately as efficient on the hospital bed. The joint was prepped and draped in the usual sterile manner to provide a sterile environment. The skin was anesthetized with ethyl chloride spray. The aspiration/injection was performed with standard technique. The joint was injected with 2 cc Celestone 4 cc lidocaine right knee. The needle was withdrawn and the puncture site was secured with a Band-Aid The patient tolerated procedure well without complication Assessment Chronic right-sided knee pain due to patellofemoral arthritis Treatment plan 1. Knee injection which is performed today 2. Prescription for Relafen is sent to the pharmacy 3. We discussed other treatment alternatives including arthroscopy and Visco supplementation but she is can hold off for the time being 4. All of the patient's questions were answered. This note was prepared using voice recognition software. The details of this note are correct and have been reviewed, and corrected to the best of my ability. Some grammatical areas may persist related to the 1.618 Technology software Yasir Abreu MD Active Problems Adjustment disorder with other symptom (309.89) (F43.29) Adjustment insomnia (307.41) (F51.02) Allergic rhinitis (477.9) (J30.9) Ankle sprain (845.00) (S93.409A) Asthma (493.90) (J45.909) Encounter for routine child health examination without abnormal findings (V20.2) (Z00.129) Foot sprain (845.10) (S93.609A) Hematuria (599.70) (R31.9) Involuntary movements (781.0) (R25.9) Knee pain (719.46) (M25.569) AYLIN (middle ear effusion), bilateral (381.4) (H65.93) Muscle twitching (781.0) (R25.3) PFS (patellofemoral syndrome) (719.46) (M22.2X9) Tic disorder, 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) Vaginal discharge (623.5) (N89.8) Vaginal itching (698.1) (N89.8) Vulvar irritation (624.8) (N90.89) Past Medical History History of Acute left otitis media (382.9) (H66.92) History of Asthma exacerbation (493.92) (J45.901) History of Cough (786.2) (R05) History of acute sinusitis (V12.69) (Z87.09) History of backache (V13.59) (Z87.39) History of fever (V13.89) (Z87.898) History of Knee tendinitis (727.09) (M76.899) History of Strain of muscle, fascia, or tendon of lower back (846.9) (S39.012A) History of Viral URI with cough (465.9) (J06.9) Surgical History Denied: History Of Prior Surgery History of Oral surgery Family History Family history of hypertension (V17.49) (Z82.49) Family history of asthma (V17.5) (Z82.5) Family history of dementia (V17.2) (Z81.8) Family history of Parkinson disease, symptomatic Social History Household: Younger siblings Maria T age 12 Never a smoker Allergies Keppra Recorded By: Niru Jarquin; 07/26/2018 8:37:45 AM Current Meds cloNIDine HCl - 0.1 MG Oral Tablet; take 1 tab in morning and 1/2 tab in evening; Therapy: [id number] to (Evaluate:[id number]) Requested for: [id number]; Last Rx:[id number] Ordered Rx By: Kunal Godwin; Dispense: 90 Days ; #:135 Tablet; Refill: 3;For: Involuntary movements, Muscle twitching; JESUS = N; Verified Transmission to [facility] #71; Last Updated By: Geraldine Pinion.gg; 05/08/2019 3:07:34 PM Minocycline HCl - 100 MG Oral Capsule; Therapy: (more content not included)... [facility] w/o Contrast Righto n 07-30-2019 MRI Knee w/o Contrast Right Exam Date/Time: 07/30/2019 18:25 EDT Reason for Exam: RIGHT KNEE PATELLOFEMORAL SYNDROME Report STUDY: MRI of the right knee without contrast dated 07/30/2019. INDICATION: Knee pain. Patellofemoral syndrome. COMPARISON: None. ACCESSION NUMBER(S): [id number] ORDERING CLINICIAN: Yasir Abreu TECHNIQUE: Multiplanar multisequence MRI of the right knee was performed without intravenous contrast. FINDINGS: MUSCLES, TENDONS, AND LIGAMENTS: The anterior cruciate ligament is intact. The posterior cruciate ligament is intact.The medial collateral ligament is intact.The lateral collateral ligament complex is intact. The popliteus and biceps femoris tendons, iliotibial band, and extensor mechanism are intact. MENISCI: The medial meniscus is intact. The lateral meniscus is intact. OSSEOUS STRUCTURES AND JOINTS: No fracture or dislocation is evident. The hyaline articular cartilage of the femorotibial joint spaces is intact. The hyaline articular cartilage of the patellofemoral joint space is intact. No joint effusion is evident. SOFT TISSUES: No significant volume of fluid is evident in a popliteal cyst. There is edema in the superolateral corner of Hoffa's fat pad. 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 FINAL REPORT Dictated: 07/30/2019 7:39 pm Toñito Mary MD Signed (Electronic Signature): 07/30/2019 7:39 pm Signed by: Toñito Mary MD Technologist: YANETH Normal [facility] MRI Brain w/o Contraston MRI Brain w/o Contrast Exam Date/Time: 08/07/2018 17:39 EDT Reason for Exam: UNSPECIFIED ABNORMAL INVOLUNTARY MOVEMENTS Report STUDY: MRI Brain w/o Contrast; 08/07/2018 5:39 pm INDICATION: UNSPECIFIED ABNORMAL INVOLUNTARY MOVEMENTS. Myoclonic jerking. COMPARISON: None. ACCESSION NUMBER(S): [id number] ORDERING CLINICIAN: Kunal Godwin TECHNIQUE: Axial T2, FLAIR, DWI, gradient echo T2 and sagittal and coronal T1 weighted images of brain were acquired. FINDINGS: CSF Spaces: The ventricles, sulci and basal cisterns are within normal limits. Parenchyma: There is no diffusion restriction abnormality to suggest acute infarct. No infarct, hemorrhage or mass is noted. There is no mass effect or midline shift. Paranasal Sinuses and Mastoids: Visualized paranasal sinuses and mastoid air cells are unremarkable. IMPRESSION: Normal MRI of the brain. FINAL REPORT Dictated: 08/08/2018 9:29 am Alhaji Ritchie MD Signed (Electronic Signature): 08/08/2018 9:29 am Signed by: Alhaji Ritchie MD Technologist: YANETH Normal [facility] Anti-Nuclear Ab W/Rfx to Tit er, ENAon 07-26-2018 Anti-Nuclear Ab, W/Rfx to Titer Negative Normal NEGATIVE [facility] Ceruloplasminon 07-26-2018 Ceruloplasmin 21 mg/dL Normal 20-60 [facility] Copper, Serumon 07-26-2018 Copper, Serum 84 ug/dL Normal 80-155 [facility] Comment on above: Result Comment: INTE RPRETIVE INFORMATION: Copper, Serum or Plasma Serum copper may be elevated with infection, inflammation, stress, and copper supplementation. In females, elevated copper may also be caused by oral contraceptives and (concentrations may be elevated up to 3 times normal during the third trimester). Serum copper may be reduced by use of corticosteroids and zinc and by malnutrition or malabsorption. See Compliance Statement B at [email or web address] Performed by [facility], [address] [place] [address] [email or web address], Prashant Castellanos MD - Lab. Director Performed By: #### [id number] #### [facility] [address] [place] [address] Copper, Urineon 07-26-2018 Collection Period Random Normal [facility] Comment on above: Performed By: #### C OPUV #### [facility] [address] [place] [address] Copper, 24 Hour Urine Not Applicable Normal 3.0-45.0 [facility] Comment on above: Performed By: #### C OPUV #### [facility] [address] [place] [address] Copper, Urine <1.0 Low 0.3-3.2 [facility] Comment on above: Result Comment: INTE RPRETIVE INFORMATION: Copper, Urine Individuals with symptomatic Cory disease usually excrete more than 100 ug copper per day. Other conditions associated with elevated urine copper include cholestatic liver disease, proteinuria, some medications, and contaminated specimens. Although random specimens may contain diagnostic information, a 24-hour collection is a more consistent indicator of urine copper. Test developed and characteristics determined by [facility]. See Compliance Statement B: [employer]/CS Performed By: #### C OPUV #### [facility] [address] [place] [address] Copper, Urine (Creat ratio) Not Applicable Normal 10.0-45.0 [facility] Comment on above: Result Comment: Unab le to accurately calculate the creatinine normalized result due to a low per volume result. Performed By: #### C OPUV #### [facility] [address] [place] [address] Creatinine, 24 Hour Urine Not Applicable Normal 700-1600 [facility] Comment on above: Result Comment: Perf ormed by [facility], [address] [place] [id number] [email or web address], Prashant Castellanos MD - Lab. Director Performed By: #### C OPUV #### [facility] [address] [place] [address] Creatinine, Urine 131 mg/dL Normal [facility] Comment on above: Performed By: #### C OPUV #### [facility] [address] [place] [address] Volume, Urine Random Normal [facility] Comment on above: Performed By: #### C OPUV #### [facility] [address] [place] [address] Cyclic Citrul Pept IgGon Cyclic Citrul Pept IgG <1 Normal [facility] Comment on above: Result Comment: THE TEST FOR ANTIBODIES SPECIFIC FOR CYCLIC CITRULLINATED PEPTIDE (CCP) HAS SHOWN TO BE VALUABLE IN THE DIAGNOSIS OF RHEUMATOID ARTHRITIS. THE DIAGNOSTIC VALUE OF ANTIBODIES TO CCP IN JUVENILE RHEUMATOID ARTHRITIS PATIENTS HAS NOT BEEN DETERMINED. ANTIBODIES TO CENTROMERE OR SS-A AND MYELOMA IGG MAY BE REACTIVE IN THIS ASSAY. REF VALUES NEGATIVE < 3 U/ML POSITIVE >=3 U/ML Paraneoplastic Abs, (PCCA/AN NA) Rfx Scnon 07-26-2018 Purkinje Cell/Neur Nuc IgG Scn None Detected Normal None Detected [facility] Comment on above: Result Comment: JUSTINE -1, JUSTINE-2 or WINDING LATHE OPERATOR-1 antibodies not detected, confirmatory testing for Hu (JUSTINE-1), Ri (JUSTINE-2) or Yo (WINDING LATHE OPERATOR-1) IgG antibodies will not be performed. INTERPRETIVE INFORMATION: Purkinje Cell/Neuronal Nuclear IgG Scrn Test developed and characteristics determined by [facility]. See Compliance Statement D: [employer]/CS Performed by [facility], [address] [place] [id number] [email or web address], Prashant Castellanos MD - Lab. Director Performed By: #### P JULIO CÉSAR #### [facility] [address] [place] [address] Vitamin Monico 07-26-2018 Vit E, Alpha-Tocopherol 4.8 mg/L Low 5.5-18.0 [facility] Comment on above: Result Comment: Test developed and characteristics determined by [facility]. See Compliance Statement B: [employer]/CS Performed By: #### V ITE #### [facility] [address] [place] [address] Vit E, Gamma-Tocopherol 1.1 mg/L Normal 0.0-6.0 [facility] Comment on above: Result Comment: Perf ormed by [facility], [address] [place] [address] [email or web address], Prashant Castellanos MD - Lab. Director Performed By: #### V ITE #### [facility] [address] [place] [address] eDictatedNeurologyon [address] [facility] [place] [address] ELECTROENCEPHALOGRAM Patient Name:KWADWO MENDIETA Dictating Physician: Brandon Deluca M.D. Admission Date: 06/11/2018 Discharge Date: 06/12/2018 This is a 24-hour video EEG recording. REASON FOR THE STUDY: The patient was having intermittent jerks. A video EEG was done to look for any epileptic discharges. This is a 20-channel EEG. The patient has a background of 9 to 10 hertz alpha activity, which is moderately well developed and moderately well organized. alarm security or surveillance monitor shows a heart rate of 88 beats per minute and is regular. On photic stimulation, fair photic drive is seen bilaterally. No epileptic discharges were seen during or after the photic stimulation. During sleep, slowing of the background activity appears. On hyperventilation, the patient has slowing and disorganization. Normal sleep patterns are seen. Artifacts appear due to patient's movements and muscle activity. On clip 2 the patient had event marked for shiver. At that time, there was no changes in the background activity. There was no epileptic discharges seen. The patient did not have any abnormal visual activity in the body. Artifacts appear frequently. IMPRESSION: This is a normal awake, drowsy, and sleep EEG. During the 24-hour video EEG recording, no epileptic discharges were seen. The patient had 1 event in which she had shiver, but no epileptic discharges were seen. There was no change in the background activity during that. Clinical correlation is requested. Brandon Deluca M.D. INTERNAL JOB NUMBER: [id number] CC: Monica Deluca MD, Electronically signed by Brandon Deluca MD on 16 Jun 2018 00:20:12 GMT Normal [facility] T3 Totalon 05-22-2018 T3 Total 1.42 ng/mL Normal 0.80-2.00 [facility] Comment on above: Order Comment: CALL doctor [id number] tel. [phone], FAX [phone] TSH w/out Reflexon 8 Thyroid stimulating hormone (TSH) 3.280 uIU/mL Normal 0.270-4.20 [facility] Comment on above: Order Comment: CALL doctor [id number] tel. [phone], FAX [phone] Thyroxine Freeon 05-22-2018 Thyroxine Free 1.01 ng/dL Normal 0.93-1.70 [facility] Comment on above: Order Comment: CALL doctor [id number] tel. [phone], FAX [phone] CBC With Platelet and Differ entialon 10-19-2017 Basophils Auto #/vol (Bld) 0.0 10*3/uL Normal 0.0-0.2 [facility] Basophils/100 WBC Auto (Bld) 0.4 % Normal [facility] Eosinophils 0.1 10*3/uL Normal 0.0-0.7 [facility] Eosinophils/100 leukocytes 1.9 % Normal [facility] Erythrocyte distribution width Auto Ratio (RBC) 12.7 % Normal 11.5-14.5 [facility] Erythrocytes (RBC) 4.05 10*6/uL Low 4.20-5.40 [facility] Hematocrit (HCT) 38.1 % Normal 37.0-47.0 [facility] Hemoglobin mass conc (Bld) 13.1 g/dL Normal 12.0-16.0 [facility] Lymphocytes 1.6 10*3/uL Normal 1.0-4.8 [facility] Lymphocytes/100 leukocytes 31.3 % Normal [facility] MCH 32.3 pg Critically high 27.0-31.3 [facility] MCHC mass conc (RBC) 34.4 % Normal 33.0-37.0 [facility] MCV 94.0 fL Normal 82.0-100.0 [facility] Monocytes 0.6 10*3/uL Normal 0.2-0.8 [facility] Monocytes/100 leukocytes 11.7 % Normal [facility] Neutrophils 2.8 10*3/uL Normal 1.4-6.5 [facility] Neutrophils/100 leukocytes 54.7 % Normal [facility] Platelets 185 10*3/uL Normal 130-400 [facility] WBC (Leukocytes) 5.2 10*3/uL Normal 4.5-11.0 [facility] Comprehensive Metabolic Pane ronnie 10-19-2017 Alanine aminotransferase (ALT) 14 U/L Normal 0-33 [facility] Albumin 4.5 g/dL Normal 3.9-4.9 [facility] Alkaline phosphatase (ALP) 89 U/L Normal 40-130 [facility] Anion gap 14 mmol/L Critically high 7-13 [facility] Comment on above: Result Comment: Reve rt to previous reference range.Effective: 10/12/2017 Aspartate aminotransferase (AST) 16 U/L Normal 0-35 [facility] Bilirubin (total) 0.6 mg/dL Normal 0.0-1.2 [facility] Calcium 9.3 mg/dL Normal 8.6-10.2 [facility] Chloride 102 mmol/L Normal 98-107 [facility] Comment on above: Result Comment: Reve rt to previous reference range.Effective: 10/12/2017 CO2 24 mmol/L Normal 22-29 [facility] Comment on above: Result Comment: Reve rt to previous reference range.Effective: 10/12/2017 Creatinine 0.56 mg/dL Normal 0.50-0.90 [facility] eGFR (black) mL/min/{1.73_m2} Normal >60 [facility] Comment on above: Result Comment: >60 mL/min/1.73m2 EGFR, calc. for ages 18 and older using theMDRD formula (not corrected for weight), is valid for stablerenal function. eGFR (MDRD) mL/min/{1.73_m2} Normal >60 [facility] Comment on above: Result Comment: >60 mL/min/1.73m2 EGFR, calc. for ages 18 and older using theMDRD formula (not corrected for weight), is valid for stablerenal function. Globulin 2.3 g/dL Normal 2.3-3.5 [facility] Glucose mass conc 82 mg/dL Normal 74-109 [facility] Potassium molar conc 4.2 mmol/L Normal 3.5-5.1 [facility] Comment on above: Result Comment: Reve rt to previous reference range.Effective: 10/12/2017 Protein 6.8 g/dL Normal 6.4-8.1 [facility] Sodium 140 mmol/L Normal 132-144 [facility] Comment on above: Result Comment: Reve rt to previous reference range.Effective: 10/12/2017 Urea nitrogen 10 mg/dL Normal 6-20 [facility] Lipid Panelon 10-19-2017 Cholesterol 137 mg/dL Normal 0-199 [facility] Comment on above: Result Comment: ATP III Cholesterol classification is Desirable. HDL Cholesterol 52 mg/dL Normal 40-59 [facility] Comment on above: Result Comment: ATP III HDL Cholesterol Classification is Desirable.Expected Values:Males: >55 = No Risk 35-55 = Moderate Risk <35 = High RiskFemales: >65 = No Risk 45-65 = Moderate Risk <45 = High RiskNCEP Guidelines: Third Report February 2001>59 = negative risk factor for CHD<40 = major risk factor for CHD LDL Cholesterol 71 mg/dL Normal 0-129 [facility] Comment on above: Result Comment: ATP III LDL Classification is Optimal. Triglyceride 68 mg/dL Normal 0-200 [facility] Comment on above: Result Comment: ATP III Triglycerides Classification is Normal. Vital Signs Date Time Vital Sign Value Performing Clinician Facility 07-13-2025 13:40-0400 Body temperature 98.5 [degF] No Primary Care Physician [facility] 07-13-2025 13:40-0400 Body weight 76.2 kg No Primary Care Physician [facility] 07-13-2025 13:40-0400 Diastolic blood pressure 72 mm[Hg] No Primary Care Physician [facility] 07-13-2025 13:40-0400 Heart rate 87 /min No Primary Care Physician [facility] 07-13-2025 13:40-0400 SaO2% (BldA) [Mass fraction] 100 % No Primary Care Physician [facility] 07-13-2025 13:40-0400 Systolic blood pressure 130 mm[Hg] No Primary Care Physician [facility] 06-27-2025 08:17-0400 Body mass index (BMI) [Ratio] 30.98 kg/m2 Shabnam [place] 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.CHILDREN'S [employer]ISTER Work Phone: [facility] 06-27-2025 08:17-0400 Body weight 76.84 kg Shabnam [place] 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.CHILDREN'S [employer]ISTER Work Phone: [facility] 06-27-2025 08:17-0400 Diastolic blood pressure 64 mm[Hg] Shabnam Sher 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.CHILDREN'S MINISTER Work Phone: [facility] 06-27-2025 08:17-0400 Systolic blood pressure 116 mm[Hg] Shabnam [place] 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.CHILDREN'S MINISTER Work Phone: [facility] 06-19-2025 12:05-0400 Body mass index (BMI) [Ratio] 30.91 kg/m2 Nicole Buck MD Work Phone: [facility] 06-19-2025 12:05-0400 Body weight 76.66 kg Nicole Buck MD Work Phone: [facility] 06-19-2025 12:05-0400 Diastolic blood pressure 70 mm[Hg] Nicole Buck MD Work Phone: [facility] 06-19-2025 12:05-0400 Systolic blood pressure 120 mm[Hg] Nicole Buck MD Work Phone: [facility] 04-29-2025 14:00-0400 Body mass index (BMI) [Ratio] 30.36 kg/m2 Aminah Sanchez 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.CNM Work Phone: [facility] 04-29-2025 14:00-0400 Body weight 75.3 kg Aminah Sanchez 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.CNM Work Phone: [facility] 04-29-2025 14:00-0400 Diastolic blood pressure 82 mm[Hg] Aminah Sanchez 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.CNM Work Phone: [facility] 04-29-2025 14:00-0400 Systolic blood pressure 128 mm[Hg] Aminah Daniel QUINTANILLA.CNM Work Phone: [facility] 03-26-2025 14:08-0400 Body mass index (BMI) [Ratio] 30.18 kg/m2 Natasha Haqeu APRN.CHILDREN'S MINISTER Work Phone: [facility] 03-26-2025 14:08-0400 Body weight 74.84 kg Natasha Haque APRN.CHILDREN'S MINISTER Work Phone: [facility] 03-26-2025 14:08-0400 Diastolic blood pressure 86 mm[Hg] Natasha Haque 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.CHILDREN'S MINISTER Work Phone: [facility] 03-26-2025 14:08-0400 Systolic blood pressure 120 mm[Hg] Natasha Haque APRN.CHILDREN'S MINISTER Work Phone: [facility] 03-05-2025 09:04-0400 Body height 157.5 cm Cata Rodriguez 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-CHILDREN'S MINISTER Work Phone: [facility] 03-05-2025 09:04-0400 Body mass index (BMI) [Ratio] 29.34 kg/m2 Cata Rodriguez 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-CHILDREN'S MINISTER Work Phone: [facility] 03-05-2025 09:04-0400 Body weight 72.76 kg Cata Rodriguez 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-CHILDREN'S MINISTER Work Phone: [facility] 03-05-2025 09:04-0400 Diastolic blood pressure 84 mm[Hg] Cata Rodriguez 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-CHILDREN'S MINISTER Work Phone: [facility] 03-05-2025 09:04-0400 Heart rate 58 /min Cata Rodriguez 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-CHILDREN'S [employer]ISTER Work Phone: [facility] 03-05-2025 09:04-0400 Respiratory rate 18 /min Cata Rodriguez 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-CHILDREN'S MINISTER Work Phone: [facility] 03-05-2025 09:04-0400 SaO2% (BldA) [Mass fraction] 99 % Cata Rodriguez 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-CHILDREN'S [employer]ISTER Work Phone: [facility] 03-05-2025 09:04-0400 Systolic blood pressure 124 mm[Hg] Cata Rodriguez 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-CHILDREN'S MINISTER Work Phone: [facility] 02-07-2025 08:32-0400 Diastolic blood pressure 78 mm[Hg] Adal Fields MD Work Phone: [facility] 02-07-2025 08:32-0400 Heart rate 64 /min Adal Fields MD Work Phone: [phone] [address] 02-07-2025 08:32-0400 Respiratory rate 12 /min Adal Fields MD Work Phone: 5(465)[phone] [place] [address] 02-07-2025 08:32-0400 SaO2% (BldA) [Mass fraction] 98 % Adal Fields MD Work Phone: [phone] [place] [address] 02-07-2025 08:32-0400 Systolic blood pressure 123 mm[Hg] Adal Fields MD Work Phone: [phone])[phone] [place] [address] 02-07-2025 08:12-0400 Body temperature 97.2 [degF] Adal Fields MD Work Phone: [facility] 02-07-2025 07:47-0400 Body height 157.5 cm Adal Fields MD Work Phone: [facility] 02-07-2025 07:47-0400 Body mass index (BMI) [Ratio] 29.26 kg/m2 Adal Fields MD Work Phone: [phone] [address] 02-07-2025 07:47-0400 Body weight 72.58 kg Adal Fields MD Work Phone: [facility] 12-27-2024 14:21-0500 Body height 157.5 cm Cata Rodriguez 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-CHILDREN'S MINISTER Work Phone: [facility] 12-27-2024 14:21-0500 Body mass index (BMI) [Ratio] 29.3 kg/m2 Cata Rodriguez 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-CHILDREN'S MINISTER Work Phone: [facility] 12-27-2024 14:21-0500 Body temperature 97.11 [degF] Cata Rodriguez 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-CHILDREN'S MINISTER Work Phone: [facility] 12-27-2024 14:21-0500 Body weight 72.67 kg Cata Rodriguez 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-CHILDREN'S [employer]ISTER Work Phone: [facility] 12-13-2024 10:05-0500 Diastolic blood pressure 75 mm[Hg] Adal Fields MD Work Phone: [facility] 12-13-2024 10:05-0500 Heart rate 69 /min Adal Fields MD Work Phone: [facility] 12-13-2024 10:05-0500 Respiratory rate 14 /min Adal Fields MD Work Phone: [facility] 12-13-2024 10:05-0500 SaO2% (BldA) [Mass fraction] 100 % Adal Fields MD Work Phone: [facility] 12-13-2024 10:05-0500 Systolic blood pressure 108 mm[Hg] Adal Fields MD Work Phone: [facility] 12-13-2024 09:45-0500 Body temperature 98.1 [degF] Adal Fields MD Work Phone: [facility] 11-28-2024 08:09-0500 Body height 157.5 cm Cata Rodriguez 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-CHILDREN'S [employer]ISTER Work Phone: [facility] 11-28-2024 08:09-0500 Body mass index (BMI) [Ratio] 28.72 kg/m2 Cata Rodriguez 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-CHILDREN'S [employer]ISTER Work Phone: [facility] 11-28-2024 08:09-0500 Body weight 71.22 kg Cata Rodriguez 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-CHILDREN'S MINISTER Work Phone: [facility] 11-28-2024 08:09-0500 Diastolic blood pressure 75 mm[Hg] Cata Delaat 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-CHILDREN'S MINISTER Work Phone: [facility] 11-28-2024 08:09-0500 Heart rate 61 /min Cata Delaat 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-CHILDREN'S MINISTER Work Phone: [facility] 11-28-2024 08:09-0500 Respiratory rate 16 /min Cata Delaat 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-CHILDREN'S MINISTER Work Phone: [facility] 11-28-2024 08:09-0500 SaO2% (BldA) [Mass fraction] 100 % Cata Delaat 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-CHILDREN'S MINISTER Work Phone: [facility] 11-28-2024 08:09-0500 Systolic blood pressure 109 mm[Hg] Cata Delaat 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-CHILDREN'S MINISTER Work Phone: [facility] 11-18-2024 08:03-0500 Body mass index (BMI) [Ratio] 28.72 kg/m2 Quentin Be MD Work Phone: [facility] 11-18-2024 08:03-0500 Body weight 71.22 kg Quentin Be MD Work Phone: [facility] 11-18-2024 08:03-0500 Diastolic blood pressure 68 mm[Hg] Quentin Be MD Work Phone: [facility] 11-18-2024 08:03-0500 Systolic blood pressure 112 mm[Hg] Quentin Be MD Work Phone: [facility] 10-03-2024 11:35-0500 Body mass index (BMI) [Ratio] 28.9 kg/m2 Maddy Cintron 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.CHILDREN'S MINISTER Work Phone: [facility] 10-03-2024 11:35-0500 Body weight 71.67 kg Maddy Cintron 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.CHILDREN'S MINISTER Work Phone: [facility] 10-03-2024 11:35-0500 Diastolic blood pressure 60 mm[Hg] Maddy Abdulaziz 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.CHILDREN'S MINISTER Work Phone: [facility] 10-03-2024 11:35-0500 Systolic blood pressure 120 mm[Hg] Maddy Cabaeren 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.CHILDREN'S MINISTER Work Phone: [facility] 08-29-2024 11:32-0400 Body mass index (BMI) [Ratio] 28.24 kg/m2 Malorie Brown MD Work Phone: [facility] 08-29-2024 11:32-0400 Body weight 70.03 kg Malorie Brown MD Work Phone: [facility] 08-29-2024 11:32-0400 Diastolic blood pressure 78 mm[Hg] Malorie Brown MD Work Phone: [facility] 08-29-2024 11:32-0400 Systolic blood pressure 120 mm[Hg] Malorie Brown MD Work Phone: [facility] 08-01-2024 13:11-0400 Body mass index (BMI) [Ratio] 28.2 kg/m2 Octavio Balbuena MD Work Phone: [facility] 08-01-2024 13:11-0400 Body weight 69.94 kg Octavio Balbuena MD Work Phone: [facility] 08-01-2024 13:11-0400 Diastolic blood pressure 70 mm[Hg] Octavio Balbuena MD Work Phone: [facility] 08-01-2024 13:11-0400 Systolic blood pressure 104 mm[Hg] Octavio Balbuena MD Work Phone: [facility] 06-21-2024 15:34-0400 Body mass index (BMI) [Ratio] 31.17 kg/m2 Malorie Brown MD Work Phone: [facility] 06-21-2024 15:34-0400 Body weight 77.29 kg Malorie Brown MD Work Phone: [facility] 06-21-2024 15:34-0400 Diastolic blood pressure 86 mm[Hg] Malorie Brown MD Work Phone: [facility] 06-21-2024 15:34-0400 Systolic blood pressure 128 mm[Hg] Malorie Brown MD Work Phone: [facility] 06-14-2024 14:02-0400 Body mass index (BMI) [Ratio] 32.74 kg/m2 Octavio Balbuena MD Work Phone: [facility] 06-14-2024 14:02-0400 Body weight 81.19 kg Octavio Balbuena MD Work Phone: [facility] 06-14-2024 14:02-0400 Diastolic blood pressure 80 mm[Hg] Octavio Balbuena MD Work Phone: [facility] 06-14-2024 14:02-0400 Systolic blood pressure 124 mm[Hg] Octavio Balbuena MD Work Phone: [facility] 06-11-2024 15:41-0400 Body mass index (BMI) [Ratio] 32.41 kg/m2 Octavio Balbuena MD Work Phone: [facility] 06-11-2024 15:41-0400 Body weight 80.38 kg Octavio Balbuena MD Work Phone: [facility] 06-11-2024 15:41-0400 Diastolic blood pressure 80 mm[Hg] Octavio Balbuena MD Work Phone: [facility] 06-11-2024 15:41-0400 Respiratory rate 16 /min Octavio Balbuena MD Work Phone: [facility] 06-11-2024 15:41-0400 Systolic blood pressure 138 mm[Hg] Octavio Balbuena MD Work Phone: [facility] 06-10-2024 08:31-0400 Diastolic blood pressure 76 mm[Hg] Ob Ultrasound Work Phone: [facility] 06-10-2024 08:31-0400 Systolic blood pressure 120 mm[Hg] Ob Ultrasound Work Phone: [facility] 06-07-2024 13:59-0400 Body mass index (BMI) [Ratio] 32.37 kg/m2 Gale Son MD Work Phone: [facility] 06-07-2024 13:59-0400 Body weight 80.29 kg Gale Son MD Work Phone: [facility] 06-07-2024 13:59-0400 Diastolic blood pressure 87 mm[Hg] Gale Son MD Work Phone: [facility] 06-07-2024 13:59-0400 Systolic blood pressure 132 mm[Hg] Gale Son MD Work Phone: [facility] 06-03-2024 11:02-0400 Body mass index (BMI) [Ratio] 32.37 kg/m2 Aminah Sanchez 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.CNM Work Phone: [facility] 06-03-2024 11:02-0400 Body weight 80.29 kg Aminah Sanchez 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.CNM Work Phone: [facility] 06-03-2024 11:02-0400 Diastolic blood pressure 78 mm[Hg] Aminah Sanchez 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.CNM Work Phone: [facility] 06-03-2024 11:02-0400 Systolic blood pressure 133 mm[Hg] Aminah Sanchez 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.CNM Work Phone: [facility] 05-31-2024 14:47-0400 Diastolic blood pressure 70 mm[Hg] Maddy Haury 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.CHILDREN'S MINISTER Work Phone: [facility] 05-31-2024 14:47-0400 Systolic blood pressure 120 mm[Hg] Maddy Haury 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.CHILDREN'S MINISTER Work Phone: [facility] 05-31-2024 14:00-0400 Body mass index (BMI) [Ratio] 32.23 kg/m2 Maddy Haury 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.CHILDREN'S MINISTER Work Phone: [facility] 05-31-2024 14:00-0400 Body weight 79.92 kg Maddy Haury 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.CHILDREN'S MINISTER Work Phone: [facility] 05-23-2024 14:16-0400 Body mass index (BMI) [Ratio] 32.45 kg/m2 Gale Son MD Work Phone: [facility] 05-23-2024 14:16-0400 Body weight 80.47 kg Gale Son MD Work Phone: [facility] 05-23-2024 14:16-0400 Diastolic blood pressure 90 mm[Hg] Gale Son MD Work Phone: [facility] 05-23-2024 14:16-0400 Systolic blood pressure 143 mm[Hg] Gale Son MD Work Phone: [facility] 05-16-2024 14:10-0400 Body mass index (BMI) [Ratio] 31.72 kg/m2 Gale Son MD Work Phone: [facility] 05-16-2024 14:10-0400 Body weight 78.65 kg Gale Son MD Work Phone: [facility] 05-16-2024 14:10-0400 Diastolic blood pressure 78 mm[Hg] Gale Son MD Work Phone: [facility] 05-16-2024 14:10-0400 Systolic blood pressure 120 mm[Hg] Gale Son MD Work Phone: [facility] 05-03-2024 14:16-0400 Body mass index (BMI) [Ratio] 31.64 kg/m2 Gale Son MD Work Phone: [facility] 05-03-2024 14:16-0400 Body weight 78.47 kg Gale Son MD Work Phone: [facility] 05-03-2024 14:16-0400 Diastolic blood pressure 80 mm[Hg] Gale Son MD Work Phone: [facility] 05-03-2024 14:16-0400 Systolic blood pressure 126 mm[Hg] Gale Son MD Work Phone: [facility] 04-19-2024 13:07-0400 Body mass index (BMI) [Ratio] 30.91 kg/m2 Aminah Sanchez 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.CNM Work Phone: [facility] 04-19-2024 13:07-0400 Body weight 76.66 kg Aminah Sanchez 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.CNM Work Phone: [facility] 04-19-2024 13:07-0400 Diastolic blood pressure 64 mm[Hg] Aminah Sanchez 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.CNM Work Phone: [facility] 04-19-2024 13:07-0400 Systolic blood pressure 120 mm[Hg] Aminah Sanchez 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.CNM Work Phone: [facility] 03-21-2024 13:14-0400 Body mass index (BMI) [Ratio] 29.63 kg/m2 Octavio Balbuena MD Work Phone: [facility] 03-21-2024 13:14-0400 Body weight 73.48 kg Octavio Balbuena MD Work Phone: [facility] 03-21-2024 13:14-0400 Diastolic blood pressure 68 mm[Hg] Octavio Balbuena MD Work Phone: [facility] 03-21-2024 13:14-0400 Systolic blood pressure 118 mm[Hg] Octavio Balbuena MD Work Phone: [facility] 02-14-2024 14:17-0400 Body weight 69.49 kg Gale Son MD Work Phone: [facility] 02-14-2024 14:17-0400 Diastolic blood pressure 68 mm[Hg] Gale Son MD Work Phone: [facility] 02-14-2024 14:17-0400 Systolic blood pressure 120 mm[Hg] Gale Son MD Work Phone: [facility] 01-12-2024 21:00-0400 Body temperature 98.6 [degF] Dr. Laurel Mcneal Work Phone: [facility] 01-12-2024 21:00-0400 Diastolic blood pressure 79 mm[Hg] Dr. Laurel Mcneal Work Phone: [facility] 01-12-2024 21:00-0400 Heart rate 65 /min Dr. Laurel Mcneal Work Phone: [facility] 01-12-2024 21:00-0400 Respiratory rate 16 /min Dr. Laurel Mcneal Work Phone: [facility] 01-12-2024 21:00-0400 SaO2% (BldA) [Mass fraction] 99 % Dr. Laurel Mcneal Work Phone: [facility] 01-12-2024 21:00-0400 Systolic blood pressure 124 mm[Hg] Dr. Laurel Mcneal Work Phone: [facility] 01-12-2024 17:51-0400 Body mass index (BMI) [Ratio] 29.6 kg/m2 Dr. Laurel Mcneal Work Phone: [facility] 01-12-2024 17:51-0400 Body weight 73.[address] Laurel Mcneal Work Phone: [facility] 01-12-2024 17:49-0400 Body height 157.[address] Laurel Mcneal Work Phone: [facility] 12-26-2023 13:34-0500 Body weight 65.77 kg Octavio Balbuena MD Work Phone: [facility] 12-26-2023 13:34-0500 Diastolic blood pressure 70 mm[Hg] Octavio Balbuena MD Work Phone: [facility] 12-26-2023 13:34-0500 Systolic blood pressure 110 mm[Hg] Octavio Balbuena MD Work Phone: [facility] 11-27-2023 13:14-0500 Body height 157.5 cm Aminah Sanchez APRN.CNM Work Phone: [facility] 11-27-2023 13:14-0500 Body weight 66.68 kg Aminah Sanchez APRN.CNM Work Phone: [facility] 11-27-2023 13:14-0500 Diastolic blood pressure 66 mm[Hg] Aminah Sanchez APRN.CNM Work Phone: [facility] 11-27-2023 13:14-0500 Systolic blood pressure 118 mm[Hg] Aminah Sanchez APRN.CNM Work Phone: [facility] 09-18-2023 09:09-0500 Body mass index (BMI) [Ratio] 25.1 kg/m2 Dr. Laurel Mcneal Work Phone: [facility] 09-18-2023 09:09-0500 Body temperature 97.2 [degF] Dr. Laurel Mcneal Work Phone: [facility] 09-18-2023 09:09-0500 Body weight 64.[address] Laurel Mcneal Work Phone: [facility] 09-18-2023 09:09-0500 Diastolic blood pressure 80 mm[Hg] Dr. Laurel Mcneal Work Phone: [facility] 09-18-2023 09:09-0500 Heart rate 88 /min Dr. Laurel Mcneal Work Phone: [facility] 09-18-2023 09:09-0500 Respiratory rate 16 /min Dr. Laurel Mcneal Work Phone: [facility] 09-18-2023 09:09-0500 SaO2% (BldA) [Mass fraction] 97 % Dr. Laurel Mcneal Work Phone: [facility] 09-18-2023 09:09-0500 Systolic blood pressure 122 mm[Hg] Dr. Laurel Mcneal Work Phone: [facility] 09-07-2023 15:09-0500 Body height 157.5 cm Octavio Balbuena MD Work Phone: [facility] 09-07-2023 15:09-0500 Body weight 63.96 kg Octavio Balbuena MD Work Phone: [facility] 09-07-2023 15:09-0500 Diastolic blood pressure 70 mm[Hg] Octavio Balbuena MD Work Phone: [facility] 09-07-2023 15:09-0500 Systolic blood pressure 110 mm[Hg] Octavio Balbuena MD Work Phone: [facility] 05-08-2023 09:15-0400 Body temperature 97.39 [degF] Samantha Athy PA-C Work Phone: [facility] 05-08-2023 09:15-0400 Body weight 62.69 kg Samantha Athy PA-C Work Phone: [facility] 05-08-2023 09:15-0400 Diastolic blood pressure 82 mm[Hg] Samantha Athy PA-C Work Phone: [facility] 05-08-2023 09:15-0400 Heart rate 96 /min Samantha Athy PA-C Work Phone: [facility] 05-08-2023 09:15-0400 Respiratory rate 18 /min Samantha Athy PA-C Work Phone: [facility] 05-08-2023 09:15-0400 SaO2% (BldA) [Mass fraction] 100 % Samantha Athy PA-C Work Phone: [facility] 05-08-2023 09:15-0400 Systolic blood pressure 116 mm[Hg] Samantha Athy PA-C Work Phone: [facility] 12-09-2020 16:27-0500 Pulse (Heart Rate) 88 /min Jarod Garcia [facility] 12-09-2020 13:25-0500 BMI (Body Mass Index) 25.89 kg/m2 Jarod Garcia [facility] 12-09-2020 13:25-0500 Body Temperature 98.2 [degF] Jarod Garcia [facility] 12-09-2020 13:25-0500 Body weight 62.14 kg Jarod Garcia [facility] 12-09-2020 13:25-0500 BP Diastolic 95 mm[Hg] Jarod Garcia [facility] 12-09-2020 13:25-0500 BP Systolic 140 mm[Hg] Jarod Garcia [facility] 12-09-2020 13:25-0500 Height 154.9 cm Jarod Garcia [facility] 12-09-2020 13:25-0500 Pulse Oximetry 98 % Jarod Garcia [facility] 12-09-2020 13:25-0500 Respiratory Rate 18 /min Jarod Garcia [facility] Encounters Encounter Date Encounter Type Care Provider Facility Start: 07-13-2025 End: 07-13-2025 Patient encounter procedure Eren Yang DOUGH MIXING MACHINE OPERATOR-C [facility] Work Phone: Start: 07-13-2025 End: 07-13-2025 ambulatory No Primary Care Physician [facility] Start: 06-27-2025 End: 06-27-2025 Patient encounter procedure Shabnam Olivarez APRN.CNP Work Phone: OB/Gynecology Comment on above: Encounter for superv ision of normal , antepartum, unspecified (HCC) (Primary Dx); 7 weeks gestation of (HCC); with uncertain dates in first trimester (HCC); Screen for STD (sexually transmitted disease); History of gestational hypertension; Nausea/vomiting in (HCC) Start: 06-27-2025 End: 06-27-2025 ambulatory SHABNAM HUDSONF Facility:[facility] Start: 06-19-2025 End: 06-19-2025 Patient encounter procedure Nicole Buck MD Work Phone: OB/Gynecology Comment on above: Nausea and vomiting in (HCC) (Primary Dx); First trimester (HCC); Heartburn; Personal history of urinary calculi Start: 06-19-2025 End: 06-19-2025 ambulatory NICOLE BUCK Facility:[facility] Start: 06-18-2025 End: 06-18-2025 Telephone encounter Kat Stack APRN.CNM Work Phone: OB/Gynecology Comment on above: Nausea Start: 05-13-2025 End: 05-13-2025 ambulatory [facility] Start: 04-30-2025 End: 06-30-2025 Follow-up encounter Aminah Sanchez APRN.CNM Work Phone: OB/Gynecology Start: 04-29-2025 End: 04-29-2025 Patient encounter procedure Aminah Sanchez APRN.CNM Work Phone: OB/Gynecology Comment on above: Encounter for pregna ncy test, result positive (HCC) (Primary Dx); Missed menses; Low back pain without sciatica, unspecified back pain laterality, unspecified chronicity Start: 04-29-2025 End: 04-29-2025 ambulatory AMINAH SANCHEZ Facility:[facility] Start: 04-28-2025 End: 04-29-2025 Telephone encounter Natasha Haque APRN.CNP Work Phone: OB/Gynecology Comment on above: +UPT Start: 04-10-2025 End: 04-10-2025 ambulatory [facility] Start: 03-31-2025 End: 03-31-2025 [facility] Start: 03-26-2025 End: 03-26-2025 Patient encounter procedure Natasha Haque APRN.CNP Work Phone: OB/Gynecology Comment on above: Encounter for IUD re moval (Primary Dx); Encounter for repeat prescription of oral contraceptives Start: 03-26-2025 End: 03-26-2025 ambulatory NATASHA HAQUE Facility:[facility] Start: 03-05-2025 End: 03-05-2025 Office outpatient visit 25 minutes Cata IGNACIO Work Phone: [facility] Comment on above: Constipation, unspec ified constipation type (Primary Dx); Blood in stool; Anal fissure; Encounter for screening colonoscopy Start: 03-05-2025 End: 03-05-2025 [facility] Start: 02-25-2025 [facility] Start: 02-25-2025 End: 02-25-2025 Subsequent hospital visit by physician Xr [facility] Work Phone: Radiology Start: 02-07-2025 End: 02-07-2025 Subsequent hospital visit by physician Adal Fields MD Work Phone: [facility] Comment on above: Rectal pain; Blood in stool Start: 02-07-2025 End: 02-07-2025 ambulatory [facility] Start: 01-14-2025 End: 01-14-2025 Telephone encounter Snow Cleary APRN.CHILDREN'S MINISTER Work Phone: Internal [facility] Comment on above: Establish Care Start: 12-27-2024 End: 12-27-2024 Office outpatient visit 25 minutes Cata Rodriguez 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-CHILDREN'S MINISTER Work Phone: [facility] Comment on above: Encounter for screen ing colonoscopy (Primary Dx); Blood in stool; Rectal pain; Constipation, unspecified constipation type; Acute anterior anal fissure; Colonoscopy causing post-procedural bleeding Start: 12-27-2024 End: 12-27-2024 ambulatory [facility] Start: 12-19-2024 End: 12-20-2024 Emergency department patient visit Jaycob Del Valle Facility:[facility] Start: 12-13-2024 End: 12-13-2024 Subsequent hospital visit by physician Adal Fields MD Work Phone: [facility] Comment on above: Blood in stool; Rectal pain Start: 12-13-2024 End: 12-13-2024 ambulatory [facility] Start: 11-28-2024 End: 11-28-2024 ambulatory [facility] Start: 11-28-2024 End: 11-28-2024 Office outpatient new 30 minutes Cata Rodriguez 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-CHILDREN'S MINISTER Work Phone: [facility] Comment on above: Rectal pain (Primary Dx); Blood in stool; Encounter for screening colonoscopy Start: 11-18-2024 End: 11-18-2024 ambulatory QUENTIN BE Facility:[facility] Start: 11-18-2024 End: 11-18-2024 Patient encounter procedure Quentin Be MD Work Phone: OB/Gynecology Comment on above: Vaginal itching (Melanie kyle Dx) Start: 11-16-2024 End: 11-16-2024 ambulatory MADDY CINTRON Facility:[facility] Start: 11-15-2024 End: 11-15-2024 Telephone encounter Gale Son MD Work Phone: OB/Gynecology Comment on above: Vaginal Problem Start: 11-04-2024 End: 11-15-2024 ambulatory Maddy Cintron 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.CHILDREN'S MINISTER Work Phone: OB/Gynecology Comment on above: Meds while breastfee ding Start: 11-01-2024 End: 11-01-2024 ambulatory 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 Work Phone: OB/Gynecology Start: 11-01-2024 End: 11-01-2024 Patient encounter procedure 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[employer] Work Phone: OB/Gynecology Start: 10-22-2024 End: 10-24-2024 Telephone encounter Malorie Brown MD Work Phone: OB/Gynecology Comment on above: Patient Update Start: 10-03-2024 End: 10-03-2024 ambulatory MADDY CINTRON Facility:[facility] Start: 10-03-2024 End: 10-03-2024 ambulatory MALORIE BROWN Facility:[facility] Start: 10-03-2024 End: 10-03-2024 Patient encounter procedure Maddy Cintron APRN.CHILDREN'S MINISTER Work Phone: OB/Gynecology Comment on above: IUD check up (Primar y Dx) Start: 08-29-2024 End: 08-29-2024 ambulatory OCTAVIO BALBUENA Facility:[facility] Start: 08-29-2024 End: 08-29-2024 Patient encounter procedure Malorie Brown MD Work Phone: OB/Gynecology Comment on above: Encounter for IUD in sertion (Primary Dx); Screen for STD (sexually transmitted disease) Start: 08-22-2024 End: 08-22-2024 ambulatory Cintia Thorpe NP Facility:[facility] Start: 08-01-2024 End: 08-01-2024 ambulatory OCTAVIO BALBUENA Facility:[facility] Start: 08-01-2024 End: 08-01-2024 Patient encounter procedure Octavio Balbuena MD Work Phone: OB/Gynecology Comment on above: care and examination (Primary Dx); control counseling Start: 06-21-2024 End: 06-21-2024 Patient encounter procedure Malorie Borwn MD Work Phone: OB/Gynecology Comment on above: exam (Melanie kyle Dx); Vaginal discharge; Vaginal odor Start: 06-18-2024 End: 06-18-2024 ambulatory Malorie Brown MD Work Phone: OB/Gynecology Comment on above: Ob Delivery Note Start: 06-18-2024 End: 06-18-2024 Telephone encounter Malorie Brown MD Work Phone: OB/Gynecology Start: 06-14-2024 End: 06-14-2024 Patient encounter procedure Octavio Balbuena MD Work Phone: OB/Gynecology Comment on above: 36 weeks gestation o f (Primary Dx); Gestational hypertension, third trimester; High-risk in third trimester Start: 06-11-2024 End: 06-11-2024 Patient encounter procedure Octavio Balbuena MD Work Phone: OB/Gynecology Comment on above: 36 weeks gestation o f (Primary Dx); Gestational hypertension, third trimester; High-risk in third trimester; Itching Start: 06-11-2024 ambulatory Maddy ESTEVEZ RN.CHILDREN'S MINISTER Work Phone: OB/Gynecology Comment on above: Medical Question Start: 06-11-2024 Telephone encounter Octavio louise MD Work Phone: OB/Gynecology Comment on above: Care Start: 06-10-2024 End: 06-10-2024 Patient encounter procedure 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[facility] Work Phone: OB/Gynecology Comment on above: Encounter for ultras ound to check growth (Primary Dx); Gestational hypertension, third trimester; 36 weeks gestation of Start: 06-07-2024 End: 06-07-2024 Patient encounter procedure Gale Son MD Work Phone: OB/Gynecology Comment on above: 35 weeks gestation o f (Primary Dx); Encounter for supervision of high risk in third trimester, antepartum; Gestational hypertension, third trimester Start: 06-03-2024 End: 06-03-2024 Patient encounter procedure Aminahmarlene Sanchez 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.CNM Work Phone: OB/Gynecology Comment on above: Encounter for superv ision of high risk in third trimester, antepartum (Primary Dx); Gestational hypertension, third trimester; 35 weeks gestation of Start: 05-31-2024 End: 05-31-2024 Patient encounter procedure Maddy Abdulaziz 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.CHILDREN'S MINISTER Work Phone: OB/Gynecology Comment on above: Encounter for superv ision of high risk in third trimester, antepartum (Primary Dx); 34 weeks gestation of ; Gestational hypertension, third trimester; Uterine size-date discrepancy, third trimester; Persistent headaches Start: 05-29-2024 Telephone encounter Kat sahni 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.CNM Work Phone: OB/Gynecology Comment on above: OB CABA, Elevated BP Start: 05-28-2024 Telephone encounter Nicole Buck MD Work Phone: OB/Gynecology Start: 05-23-2024 End: 05-23-2024 Patient encounter procedure Gale Son MD Work Phone: OB/Gynecology Comment on above: 33 weeks gestation o f (Primary Dx); Encounter for supervision of normal first in third trimester; Gestational hypertension, third trimester Start: 05-22-2024 Telephone encounter Gale xiong MD Work Phone: OB/Gynecology Comment on above: FMLA Paperwork Start: 05-17-2024 Telephone encounter Kat sahni 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.CNM Work Phone: OB/Gynecology Comment on above: Care Start: 05-16-2024 End: 05-16-2024 Patient encounter procedure Gale Son MD Work Phone: OB/Gynecology Comment on above: 32 weeks gestation o f (Primary Dx); Encounter for supervision of normal first in third trimester; Gestational hypertension, third trimester; Urinary frequency; Gestational hypertension without significant proteinuria in third trimester Start: 05-15-2024 Telephone encounter Yessy Salmeron DO Work Phone: [place] [facility] Start: 05-14-2024 End: 05-15-2024 ambulatory GALE JENNINGS Facility:[facility] Start: 05-13-2024 Telephone encounter Gale xiong MD Work Phone: OB/Gynecology Comment on above: OB Pain Start: 05-03-2024 End: 05-03-2024 Patient encounter procedure Gale Son MD Work Phone: OB/Gynecology Comment on above: 30 weeks gestation o f (Primary Dx); Encounter for supervision of normal first in third trimester Start: 05-03-2024 Telephone encounter Gale xiong MD Work Phone: OB/Gynecology Comment on above: FMLA Paperwork Start: 04-19-2024 End: 04-19-2024 Patient encounter procedure Aminah Daniel LOYDM Work Phone: OB/Gynecology Comment on above: Encounter for superv ision of normal first in second trimester (Primary Dx); 28 weeks gestation of ; Rh negative state in antepartum period; Need for vaccination Start: 04-11-2024 End: 04-12-2024 ambulatory NATASHA DENISE KAELYN Facility:[facility] Start: 03-28-2024 Telephone encounter Octavio louise MD Work Phone: OB/Gynecology Comment on above: Breast Pump Start: 03-21-2024 ambulatory Octavio Molina Work Phone: OB/Gynecology Comment on above: FMLA Start: 03-21-2024 E-mail encounter fro m caregiver Octavio Balbuena MD Work Phone: OB/Gynecology Start: 03-21-2024 End: 03-21-2024 Patient encounter procedure Octavio Balbuena MD Work Phone: OB/Gynecology Comment on above: 24 weeks gestation o f (Primary Dx); Encounter for supervision of normal first in second trimester Start: 02-22-2024 Telephone encounter Octavio louise MD Work Phone: OB/Gynecology Comment on above: Patient Update Start: 02-14-2024 End: 02-14-2024 Patient encounter procedure Gale Son MD Work Phone: OB/Gynecology Comment on above: Encounter for superv ision of normal first in second trimester (Primary Dx); 17 weeks gestation of Encounter for anatomic survey (Primary Dx); 19 weeks gestation of Start: 2024 ambulatory NICK RÍOS Facility: [facility] Start: 01-15-2024 Telephone encounter Ana azul Work Phone: [place] [facility] Comment on above: Results Start: 01-13-2024 End: 01-13-2024 ambulatory NATASHA ART Facility:[facility] Start: 01-12-2024 End: 01-12-2024 Emergency department patient visit Dr. Laurel Mcnela Work Phone: [facility] Work Phone: Start: 01-03-2024 End: 01-03-2024 Patient encounter procedure 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[facility] Work Phone: OB/Gynecology Comment on above: First trimester scre ening (Primary Dx); 13 weeks gestation of Start: 12-26-2023 End: 12-26-2023 Patient encounter procedure Octavio Balbuena MD Work Phone: OB/Gynecology Comment on above: Encounter for superv ision of normal first in first trimester (Primary Dx) Start: 11-27-2023 End: 11-27-2023 Patient encounter procedure Aminah Sanchez APRN.CNM Work Phone: OB/Gynecology Comment on above: with uncer tain dates in first trimester (Primary Dx); Encounter for supervision of normal first in first trimester; Mild intermittent asthma without complication; Hx of migraines; Occasional tremors; Genetic screening Start: 09-18-2023 End: 09-18-[address] Laurel Mcneal Work Phone: [facility] Work Phone: Start: 09-07-2023 End: 09-07-2023 Patient encounter procedure Octavio Balbuena MD Work Phone: OB/Gynecology Comment on above: Encounter for gyneco logical examination (general) (routine) without abnormal findings (Primary Dx) Start: 09-07-2023 End: 09-07-2023 Patient encounter status Octavio Balbuena MD Work Phone: [facility] Start: 05-08-2023 Telephone encounter Samantha Jina Ath y PA-C Work Phone: [facility] Comment on above: Results Start: 05-08-2023 End: 05-08-2023 Subsequent hospital visit by physician Xr [facility] [employer] Work Phone: Radiology Comment on above: Toe injury, left, in itial encounter [S99.922A] Start: 05-08-2023 End: 05-08-2023 Patient encounter procedure Samantha Sousa PA-C Work Phone: [facility] Comment on above: Toe injury, left, in itial encounter (Primary Dx) Start: 12-29-2022 End: 12-29-2022 Subsequent hospital visit by physician Xr [facility] [employer] Work Phone: Radiology Start: 02-12-2021 Patient encounter procedure Yasir Abreu MD, [facility] Work Phone: Start: 02-05-2021 Patient encounter procedure Yasir bAreu MD, [facility] Work Phone: Start: 01-26-2021 Patient encounter procedure Yasir Abreu MD, [facility] Work Phone: Start: 01-22-2021 Patient encounter procedure Yasir Abreu MD, [facility] Work Phone: Start: 01-07-2021 Patient encounter procedure Yasir Abreu MD, [facility] Work Phone: Start: 01-01-2021 [facility] Work Phone: Start: 12-25-2020 Patient encounter procedure Yasir Abreu [facility] Work Phone: Start: 12-22-2020 Patient encounter procedure Yasir Abreu [facility] Work Phone: Start: 12-18-2020 Patient [facility] Work Phone: Start: 12-11-2020 Patient encounter procedure [facility] Work Phone: Start: 12-09-2020 End: 12-09-2020 Emergency department patient visit AJROD GARCIA [facility] Start: 12-09-2020 End: 12-09-2020 Emergency department patient visit Jarod Stacy Jose Work Phone: [facility] Comment on above: Exposure to blood or body fluid (Primary Dx) Start: 12-04-2020 Patient encounter procedure [facility] Work Phone: Start: 11-27-2020 Patient encounter procedure [facility]bre[facility] Work Phone: Start: 11-10-2020 Patient encounter procedure [facility] Abrue [facility] Work Phone: Start: 10-21-2020 Patient encounter procedure [facility]bre[facility] Work Phone: Start: 10-13-2020 Patient encounter procedure [facility]bre[facility] [place] Work Phone: Start: 08-26-2020 Patient encounter procedure Yasir Abreu [facility] [place] Work Phone: Start: 05-08-2020 [facility] [place] Work Phone: Start: 01-15-2020 Patient encounter procedure Yasir Abreu [facility] Work Phone: Start: 05-08-2019 Patient encounter procedure Yasir Anglinfield [facility] Work Phone: Start: 01-02-2019 Patient encounter procedure Yasir Abreu [facility] Work Phone: Start: 07-26-2018 Patient encounter procedure KUNAL GODWIN Facility:[facility] Start: 06-11-2018 End: 06-12-2018 Patient encounter procedure JUDY STONER Facility:[facility] Patient encounter status Yasir molina MD -[facility] Work Phone: Procedures Date Procedure Procedure Detail Performing Clinician Start: 06-27-2025 Us uterus l imited / fetuses Shabnam Olivarez 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.[employer] Work Phone: Start: 04-29-2025 UA DIP,URINE HCG (POC) Aminah Sanchez APRN.CNM Work Phone: Start: 02-25-2025 Radiologic exam chest 2 views [facility] Provider Start: 02-07-2025 Sigmoidoscopy flx dx w/collj spec br/wa if pfrmd Adal Fields MD Work Phone: Start: 02-07-2025 Urine test visual color pashan cristiana Fields MD Work Phone: Start: 02-07-2025 PULSE OXIMETRY, CONTINUOUS Adal Fields MD Work Phone: Start: 02-07-2025 PULSE OXIMETRY, SPOT Br missy Fields MD Work Phone: Start: 02-07-2025 Colonoscopy Adal mejia MD Work Phone: Start: 12-13-2024 Sigmoidoscopy flx dx w/collj spec br/wa if pfrmd Cata Rodriguez 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-[employer] Work Phone: Start: 12-13-2024 Urine test visual color cmprsn cristiana Fields MD Work Phone: Start: 12-13-2024 [facility] Adal mejia MD Work Phone: Start: 11-01-2024 Us pelvic nonobstetr ic real-time image complete Maddy Cabaeren [facility] Work Phone: Start: 08-29-2024 UA DIP,URINE HCG (POC) Malorie Brown MD Work Phone: Start: 06-11-2024 Urnls dip stick/tabl et rgnt non-auto w/o micrscp Octavio Balbuena MD Work Phone: Start: 06-10-2024 Us preg uterus after 1st trimest 10/30 gestation Maddy Abdulaziz [facility] Work Phone: Start: 06-07-2024 Urnls dip stick/tabl et rgnt non-auto w/o micrscp Gale Son MD Work Phone: Start: 06-03-2024 Urnls dip stick/tabl et rgnt non-auto w/o micrscp Aminah Sanchez APRN.CNM Work Phone: Start: 05-31-2024 Urnls dip stick/tabl et rgnt non-auto w/o micrscp Maddy Cabaeren [facility] Work Phone: Start: 05-23-2024 URINE OB DIP B/O Jessica Son MD Work Phone: Start: 05-16-2024 Urnls dip stick/tabl et rgnt auto w/o microscopy Malorie Brown MD Work Phone: Start: 02-14-2024 Us preg uterus after 1st trimest 10/30 gestation Aminah Sanchez APRN.CNM Work Phone: Start: 01-12-2024 Ultrasonography for antepartum monitoring of fetus Dr. Laurel Mcneal Work Phone: Start: 01-03-2024 Us nuchal hughes slucency 1st gestation Aminah Sanchez APRN.CNM Work Phone: Start: 11-27-2023 BACTERIAL VAGINOSIS NAAT Aminah Daniel 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.CNM Work Phone: Start: 11-27-2023 Cytp c/v auto thin l yr prepj scr mnl rescr phys Aminah Daniel 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.CNM Work Phone: Start: 11-27-2023 Iadna chlamydia trac homatis amplified probe tq Aminah Daniel 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.CNM Work Phone: Start: 11-27-2023 Us uterus l imited 1/ fetuses Aminah Daniel 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.CNM Work Phone: Start: 11-27-2023 Microscopic observat ion [Identifier] in Cervix by Cyto stain Cata Rodriguez 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-[employer] Work Phone: Start: 05-08-2023 Radex toe minimum 2 views Samantha Sousa PA-C Work Phone: Start: 12-29-2022 Radiologic exam chest 2 views [facility] Provider Start: 12-09-2020 Hepatitis B surface antibody measurement Joie Rai Work Phone: Start: 12-09-2020 Hepatitis B surface antigen measurement Joie Rai Work Phone: Start: 12-09-2020 Hepatitis C antibody measurement Joie Rai Work Phone: Start: 12-09-2020 Human immunodeficien cy virus test Joie Rai Work Phone: Operation on mouth Yasir ibarra Plan of Treatment Date Care Activity Detail Author Start: 2049 Zoster Vaccines (1 o f 2) Zoster Vaccines (1 of 2) [facility] Start: 04-19-2034 DTaP/Tdap/Td Vaccine s (8 - Td or Tdap) DTaP/Tdap/Td Vaccines (8 - Td or Tdap) [facility] Start: 04-19-2034 Urine microalbumin profile DTaP,Tdap,Td Vaccine (8 - Td or Tdap) [facility] Start: 06-01-2031 Urine microalbumin profile DTaP,Tdap,Td Vaccine (7 - Td or Tdap) [facility] Start: 11-27-2026 Screening for malignant neoplasm of cervix [facility] Start: 11-07-2025 End: 11-07-2025 Patient encounter procedure 11/07/2025 4:00 PM EST Office Visit OB/Gynecology [address] [place] [address] Malorie Brown MD [address] [place] [address] annual OB/Gynecology Comment on above: annual Start: 09-24-2025 End: 09-24-2025 Patient encounter procedure [facility] Comment on above: Anatomy Anatomy/OB Start: 08-27-2025 End: 08-27-2025 Patient encounter procedure 08/27/2025 10:30 AM EDT Routine Office Visit OB/Gynecology [address] [place] [address] Gale Son MD [address] [place] [address] OB OB/Gynecology Comment on above: OB Start: 07-31-2025 End: 07-31-2025 Patient encounter procedure Maternal Medicine Comment on above: Nuchal Nuchal/OB Start: 06-30-2025 Influenza vaccination Influenza Vacc ine (#1) [facility] Start: 06-27-2025 End: 09-26-2025 ANEMIA REFLEX PANEL ANEMIA REFLEX PANEL Lab Routine 7 weeks gestation of (HCC) Expected: 06/27/2025, Expires: 09/26/2025 [facility] Work Phone: Comment on above: Expected: 06/27/2025 , Expires: 09/26/2025 Start: 06-27-2025 End: 09-26-2025 Chromosome 21 trisomy [Presence] in Blood or Tissue by Cytogenetics [id number] PLUS Lab Routine 7 weeks gestation of (HCC) Expected: 06/27/2025, Expires: 09/26/2025 [facility] Comment on above: Expected: 06/27/2025 , Expires: 09/26/2025 Start: 06-27-2025 End: 09-26-2025 Comprehensive metabolic 2000 panel - Serum or Plasma COMPREHENSIVE METABOLIC PANEL Lab Routine 7 weeks gestation of ([facility]) History of gestational hypertension Expected: 06/27/2025, Expires: 09/26/2025 [facility] Comment on above: Expected: 06/27/2025 , Expires: 09/26/2025 Start: 06-27-2025 End: 09-26-2025 Hemoglobin A1c in Blood HEMOGLOBIN A1C Lab Routine 7 weeks gestation of ([facility]) Expected: 06/27/2025, Expires: 09/26/2025 [facility] Comment on above: Expected: 06/27/2025 , Expires: 09/26/2025 Start: 06-27-2025 End: 09-26-2025 Hepatitis B virus surface Ag [Presence] in Serum HEPATITIS B SURFACE ANTIGEN Lab Routine 7 weeks gestation of ([facility]) Expected: 06/27/2025, Expires: 09/26/2025 [facility] Comment on above: Expected: 06/27/2025 , Expires: 09/26/2025 Start: 06-27-2025 End: 09-26-2025 Hepatitis C virus Ab [Presence] in Serum HEPATITIS C ANTIBODY IA WITH CONFIRMATION Lab Routine 7 weeks gestation of ([facility]) Expected: 06/27/2025, Expires: 09/26/2025 [facility] Comment on above: Expected: 06/27/2025 , Expires: 09/26/2025 Start: 06-27-2025 End: 09-26-2025 HIV 1+2 Ab [Presence] in Serum or Plasma by Immunoassay HIV 1/2 COMBO WITH REFLEX TO DIFFERENTIATION Lab Routine 7 weeks gestation of ([facility]) Expected: 06/27/2025, Expires: 09/26/2025 [facility] Comment on above: Expected: 06/27/2025 , Expires: 09/26/2025 Start: 06-27-2025 End: 06-27-2026 OBSTETRIC ULTRASOUND WHI OBSTETRIC ULTRASOUND WHI Anc Imaging Routine 7 weeks gestation of ([facility]) Expected: 06/27/2025, Expires: 06/27/2026 [facility] Comment on above: Expected: 06/27/2025 , Expires: 06/27/2026 Start: 06-27-2025 End: 09-26-2025 Protein/Creatinine [Mass Ratio] in Urine PROTEIN / CREATININE RATIO Lab Routine 7 weeks gestation of ([facility]) History of gestational hypertension Expected: 06/27/2025, Expires: 09/26/2025 [facility] Comment on above: Expected: 06/27/2025 , Expires: 09/26/2025 Start: 06-27-2025 End: 09-26-2025 RUBELLA IGG ANTIBODY RUBELLA IGG ANTIBODY Lab Routine 7 weeks gestation of ([facility]) Expected: 06/27/2025, Expires: 09/26/2025 [facility] Comment on above: Expected: 06/27/2025 , Expires: 09/26/2025 Start: 06-27-2025 End: 09-26-2025 SYPHILIS TREPONEMAL W/REFLEX SYPHILIS TREPONEMAL W/REFLEX Lab Routine 7 weeks gestation of ([facility]) Expected: 06/27/2025, Expires: 09/26/2025 [facility] Comment on above: Expected: 06/27/2025 , Expires: 09/26/2025 Start: 06-27-2025 End: 09-26-2025 TYPE + SCREEN TYPE + SCREEN Blood Bank Routine 7 weeks gestation of ([facility]) Expected: 06/27/2025, Expires: 09/26/2025 [facility] Comment on above: Expected: 06/27/2025 , Expires: 09/26/2025 Start: 06-27-2025 End: 06-27-2025 Patient encounter procedure 06/27/2025 8:15 AM EDT Initial Office Visit OB/Gynecology [address] [place] [address] Shabnam Olivarez APRN.CHILDREN'S MINISTER [address] [place] [address] LMP May 07 OB/Gynecology Comment on above: LMP May 07 Start: 06-19-2025 End: 06-19-2025 Patient encounter procedure 06/19/2025 12:10 PM EDT Office Visit OB/Gynecology [address] [place] [address] Nicole Azar MD [address] [place] [address] N/V in early OB/Gynecology Comment on above: N/V in early pregnan cy Start: 05-30-2025 End: 05-30-2025 Patient encounter procedure 05/30/2025 1:00 PM EDT Office Visit [facility] [address] [place] [address] Cata Rodriguez APRN-CHILDREN'S MINISTER [address] [place] [address] [facility] Start: 05-09-2025 End: 05-09-2025 Patient encounter procedure 05/09/2025 7:30 AM EDT Appointment [facility] [address] [place] [address] [place] [address] [facility] [address] [place] [address] [facility] Start: 05-08-2025 Screening for malignant neoplasm of colon [facility] Start: 03-13-2025 Screening for malignant neoplasm of colon [facility] Start: 03-05-2025 End: 03-05-2026 Colonoscopy study Colonoscopy Screening; Average Risk Patient Endoscopy Routine Constipation, unspecified constipation type Blood in stool Anal fissure Encounter for screening colonoscopy Expected: 03/05/2025, Expires: 03/05/2026 [facility] Service Area Work Phone: Comment on above: Expected: 03/05/2025 , Expires: 03/05/2026 Start: 02-28-2025 End: 02-28-2025 Patient encounter procedure 02/28/2025 2:00 PM EDT Office Visit [facility] [address] [place] [address] 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 Rodriguez 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-[employer] [address] [place] [address] [facility] Start: 02-07-2025 End: 02-07-2025 Patient encounter procedure 02/07/2025 8:00 AM EDT Appointment [facility] [address] [place] [address] [place] [address] [facility] [place] [address] [facility] Start: 01-03-2025 End: 01-03-2025 Patient encounter procedure 01/03/2025 1:00 PM EST Office Visit [facility] [address] [place] [address] Cata Rodriguez APRN-CHILDREN'S MINISTER [address] [place] [address] [facility] Start: 12-26-2024 Diabetes mellitus screening Diabetes Screening [facility] Start: 12-13-2024 End: 12-13-2024 Patient encounter procedure 12/13/2024 10:30 AM EST Appointment [facility] [address] [place] [address] [place] [address] [facility] [address] [place] [address] [facility] Start: 11-28-2024 End: 05-28-2026 Colonoscopy study Colonoscopy Screening; Average Risk Patient Endoscopy Routine Blood in stool Rectal pain Expected: 11/28/2024, Expires: 05/28/2026 [facility] Service Area Work Phone: Comment on above: Expected: 11/28/2024 , Expires: 05/28/2026 Start: 11-18-2024 End: 11-18-2024 Patient encounter procedure 11/18/2024 8:00 AM EST Office Visit OB/Gynecology [address] [place] [address] Quentin Be MD [address] [place] [address] Yeast infection OB/Gynecology Comment on above: Yeast infection Start: 11-01-2024 End: 11-01-2024 ambulatory 11/01/2024 2:30 PM EST Procedure OB/Gynecology [address] [place] [address] 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, 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[employer] [address] [place] [address] IUD check up [Z30.431] OB/Gynecology Comment on above: IUD check up [Z30.43 1] Start: 10-03-2024 End: 01-02-2025 CBC panel - Blood by Automated count [facility] Work Phone: Comment on above: Expected: 10/03/2024 , Expires: 01/02/2025 Start: 10-03-2024 End: 10-03-2025 US Pelvis PELVIC US WHI Anc Imaging Routine IUD check up Expected: 10/03/2024, Expires: 10/03/2025 [facility] Comment on above: Expected: 10/03/2024 , Expires: 10/03/2025 Start: 09-30-2024 End: 09-30-2024 Patient encounter procedure 09/30/2024 11:10 AM EST Office Visit OB/Gynecology [address] [place] [address] Malorie Brown MD [address] [place] [address] IUD check OB/Gynecology Comment on above: IUD check Start: 09-10-2024 End: 09-10-2024 Patient encounter procedure 09/10/2024 3:40 PM EST Office Visit OB/Gynecology [address] [place] [address] Octavio Balbuena MD [address] [place] [address] Annual OB/Gynecology Comment on above: Annual Start: 08-29-2024 End: 08-29-2024 Patient encounter procedure 08/29/2024 11:30 AM EDT Office Visit OB/Gynecology [address] [place], [place] [address] Malorie Brown MD [address] [place] [address] IUD Insert OB/Gynecology Comment on above: IUD Insert Start: 08-01-2024 End: 08-01-2024 Patient encounter procedure 08/01/2024 4:20 PM EDT Office Visit OB/Gynecology [address] [place], [place] [id number] Malorie Brown MD [address] [place] [address] 6 [employer] POST OB/Gynecology Comment on above: 6 [employer] Start: 06-30-2024 Covid-19 Vaccine ( season) Covid-19 Vaccine ( season) [facility] Start: 06-30-2024 Covid-19 Vaccine ( season) Covid-19 Vaccine ( season) [facility] Start: 06-30-2024 Influenza vaccination Influenza Vacc ine (#1) [facility] Start: 06-24-2024 PAP TESTING PAP TESTING [facility] Start: 06-14-2024 End: 06-14-2024 Patient encounter procedure OB/Gynecology Comment on above: NST OB Start: 06-12-2024 End: 06-12-2024 Patient encounter procedure OB/Gynecology Comment on above: NST OB Start: 06-11-2024 End: 09-10-2024 BILE ACIDS, TOTAL [facility] Work Phone: Comment on above: Expected: 06/11/2024 , Expires: 09/10/2024 Start: 06-10-2024 End: 06-10-2024 Patient encounter procedure 06/10/2024 8:00 AM EDT Routine Office Visit OB/Gynecology [address] [place] [address] BPP/ Growth OB/Gynecology Comment on above: BPP/ Growth Start: 06-07-2024 End: 06-07-2024 Patient encounter procedure OB/Gynecology Comment on above: NST OB Start: 06-03-2024 End: 06-03-2024 Patient encounter procedure OB/Gynecology Comment on above: NST ONLY Start: 05-31-2024 End: 05-31-2025 OBSTETRIC ULTRASOUND WHI OBSTETRIC ULTRASOUND WHI Anc Imaging Routine Encounter for supervision of high risk in third trimester, antepartum 34 weeks gestation of Gestational hypertension, third trimester Expected: 05/31/2024, Expires: 05/31/2025 [facility] Work Phone: Comment on above: Expected: 05/31/2024 , Expires: 05/31/2025 Start: 05-31-2024 End: 05-31-2024 Patient encounter procedure OB/Gynecology Comment on above: NST OB Start: 05-31-2024 End: 08-30-2024 Protein/Creatinine [Mass Ratio] in Urine [facility] Comment on above: Expected: 05/31/2024 , Expires: 08/30/2024 Start: 05-30-2024 End: 05-30-2024 Patient encounter procedure 05/30/2024 10:40 AM EDT Routine Office Visit OB/Gynecology [address] [place] [address] Gale Son MD [address] [place] [address] OB OB/Gynecology Comment on above: OB Start: 05-23-2024 End: 05-23-2024 Patient encounter procedure OB/Gynecology Comment on above: NST ob Start: 05-16-2024 End: 05-16-2024 Patient encounter procedure 05/16/2024 2:20 PM EDT Routine Office Visit OB/Gynecology [address] [place] [address] Malorie Brown MD [address] [place] [address] OB OB/Gynecology Comment on above: OB Start: 05-03-2024 End: 05-03-2024 Patient encounter procedure 05/03/2024 2:20 PM EDT Routine Office Visit OB/Gynecology [address] [place] [address] Gale Son MD [address] [place] [address] OB OB/Gynecology Comment on above: OB Start: 04-19-2024 End: 04-19-2024 Patient encounter procedure 04/19/2024 1:00 PM EDT Routine Office Visit OB/Gynecology [address] [place] [address] Aminah Sanchez APRN.CN [address] [place] [address] OB OB/Gynecology Comment on above: OB Start: 04-19-2024 End: 04-19-2024 ambulatory 04/19/2024 12:45 PM EDT Results Only [facility] [address] [place] [address] Glucose Test [facility] Comment on above: Glucose Test Start: 03-21-2024 End: 06-20-2024 CBC panel - Blood by Automated count COMPLETE BLOOD COUNT Lab Routine 24 weeks gestation of Expected: 03/21/2024, Expires: 06/20/2024 [facility] Work Phone: Comment on above: Expected: 03/21/2024 , Expires: 06/20/2024 Start: 03-21-2024 End: 06-20-2024 GESTATIONAL GLUCOSE SCREEN, 1-HOUR, 50 GRAM, NON-FASTING GESTATIONAL GLUCOSE SCREEN, 1-HOUR, 50 GRAM, NON-FASTING Lab Routine 24 weeks gestation of Expected: 03/21/2024, Expires: 06/20/2024 [facility] Comment on above: Expected: 03/21/2024 , Expires: 06/20/2024 Start: 03-21-2024 End: 06-20-2024 SYPHILIS TOTAL W/REFLEX SYPHILIS TOTAL W/REFLEX Lab Routine 24 weeks gestation of Expected: 03/21/2024, Expires: 06/20/2024 [facility] Comment on above: Expected: 03/21/2024 , Expires: 06/20/2024 Start: 03-21-2024 End: 06-20-2024 TYPE + SCREEN TYPE + SCREEN Blood Bank Routine 24 weeks gestation of Expected: 03/21/2024, Expires: 06/20/2024 [facility] Comment on above: Expected: 03/21/2024 , Expires: 06/20/2024 Start: 03-21-2024 End: 03-21-2024 Patient encounter procedure 03/21/2024 1:10 PM EDT Routine Office Visit OB/Gynecology [address] [place], [place] [id number] Octavio Balbuena MD [address] [place] [address] OB OB/Gynecology Comment on above: OB Start: 01-12-2024 [facility] Start: 12-26-2023 End: 03-26-2024 Chromosome 21 trisomy [Presence] in Blood or Tissue by Cytogenetics [facility] Work Phone: Comment on above: Expected: 12/26/2023 , Expires: 03/26/2024 Start: 11-27-2023 End: 02-26-2024 CBC panel - Blood by Automated count CBC Lab Routine with uncertain dates in first trimester Expected: 11/27/2023, Expires: 02/26/2024 [facility] Work Phone: Comment on above: Expected: 11/27/2023 , Expires: 02/26/2024 Start: 11-27-2023 End: 02-26-2024 Hemoglobin A1c in Blood HGB A1C Lab Routine with uncertain dates in first trimester Expected: 11/27/2023, Expires: 02/26/2024 [facility] Work Phone: Comment on above: Expected: 11/27/2023 , Expires: 02/26/2024 Start: 11-27-2023 End: 02-26-2024 HEMOGLOBIN EVALUATION CASCADE HEMOGLOBIN EVALUATION CASCADE Lab Routine with uncertain dates in first trimester Expected: 11/27/2023, Expires: 02/26/2024 [facility] Work Phone: Comment on above: Expected: 11/27/2023 , Expires: 02/26/2024 Start: 11-27-2023 End: 02-26-2024 Hepatitis B virus surface Ag [Presence] in Serum HEP B SURF AG SCRN Lab Routine with uncertain dates in first trimester Expected: 11/27/2023, Expires: 02/26/2024 [facility] Work Phone: Comment on above: Expected: 11/27/2023 , Expires: 02/26/2024 Start: 11-27-2023 End: 02-26-2024 Hepatitis C virus Ab [Presence] in Serum HEPATITIS C ANTIBODY IA WITH CONFIRMATION Lab Routine with uncertain dates in first trimester Expected: 11/27/2023, Expires: 02/26/2024 [facility] Work Phone: Comment on above: Expected: 11/27/2023 , Expires: 02/26/2024 Start: 11-27-2023 End: 02-26-2024 HIV 1+2 Ab [Presence] in Serum or Plasma by Immunoassay HIV 1 2 COMBO(AG/AB),WITH REFLEX TO DIFFERENTIATION Lab Routine with uncertain dates in first trimester Expected: 11/27/2023, Expires: 02/26/2024 [facility] Work Phone: Comment on above: Expected: 11/27/2023 , Expires: 02/26/2024 Start: 11-27-2023 End: 11-27-2024 NUCHAL TRANSLUCENCY WHI NUCHAL TRANSLUCENCY WHI Anc Imaging Routine with uncertain dates in first trimester Expected: 11/27/2023, Expires: 11/27/2024 [facility] Work Phone: Comment on above: Expected: 11/27/2023 , Expires: 11/27/2024 Start: 11-27-2023 End: 11-27-2024 OBSTETRIC ULTRASOUND WHI OBSTETRIC ULTRASOUND WHI Anc Imaging Routine with uncertain dates in first trimester Expected: 11/27/2023, Expires: 11/27/2024 [facility] Work Phone: Comment on above: Expected: 11/27/2023 , Expires: 11/27/2024 Start: 11-27-2023 End: 02-26-2024 RUBELLA IGG AB RUBELLA IGG AB Lab Routine with uncertain dates in first trimester Expected: 11/27/2023, Expires: 02/26/2024 [facility] Work Phone: Comment on above: Expected: 11/27/2023 , Expires: 02/26/2024 Start: 11-27-2023 End: 02-26-2024 SYPHILIS TOTAL W/REFLEX SYPHILIS TOTAL W/REFLEX Lab Routine with uncertain dates in first trimester Expected: 11/27/2023, Expires: 02/26/2024 [facility] Work Phone: Comment on above: Expected: 11/27/2023 , Expires: 02/26/2024 Start: 11-27-2023 End: 02-26-2024 TYPE + SCREEN TYPE + SCREEN Blood Bank Routine with uncertain dates in first trimester Expected: 11/27/2023, Expires: 02/26/2024 [facility] Work Phone: Comment on above: Expected: 11/27/2023 , Expires: 02/26/2024 Start: 10-30-2023 Behavioral Health Screening Behavioral Health Screening [facility] Start: 10-30-2023 Depression Assessment Depression Ass essment [facility] Start: 06-30-2023 Covid-19 Vaccine () Covid-19 Vaccine () [facility] Start: 06-30-2023 Influenza vaccination INFLUENZA (#1) [facility] Start: 10-30-2022 DEPRESSION ASSESSMENT DEPRESSION ASS ESSMENT [facility] Start: 04-16-2021 COVID-19 VACCINE (2 - Moderna series) COVID-19 VACCINE (2 - Moderna series) [facility] Start: 01-18-2020 Screening for malignant neoplasm of cervix HPV/Cotest [facility] Start: 2018 Pneumococcal Vaccine : Pediatrics and At-Risk Adult Patients (1 of 2 - PCV) Pneumococcal Vaccine: Pediatrics and At-Risk Adult Patients (1 of 2 - PCV) [facility] Start: 2017 ANNUAL PCP TEAM CHRONIC DISEASE VISIT ANNUAL PCP TEAM CHRONIC DISEASE VISIT [facility] Start: 2017 Anxiety Screening Anxiety Screening [facility] Start: 2017 Depression Screening Depression Scre ening [facility] Start: 2017 HEPATITIS C SCREENING HEPATITIS C [facility] Start: 2017 Hepatitis C screening Hepatitis C [facility] Start: 2017 HIV SCREENING HIV SCREENING [facility] Start: 2017 HIV screening HIV Screening [facility] Start: 2017 SPIROMETRY SPIROMETRY [facility] Start: 2015 Meningococcal B Vaccine: Consider Based On Risk (1 of 2 - Patient Seeks Protection) Meningococcal B Vaccine: Consider Based On Risk (1 of 2 - Patient Seeks Protection) [facility] Start: 2015 MENINGOCOCCAL B: Consider based on risk (1 of 2 - Patient Seeks Protection) MENINGOCOCCAL B: Consider based on risk (1 of 2 - Patient Seeks Protection) [facility] Start: 2013 PEDS TO ADULT TRANSITION ANNUAL ASSESSMENT PEDS TO ADULT TRANSITION ANNUAL ASSESSMENT [facility] Start: 2011 PEDS TO ADULT TRANSITION INITIAL DISCUSSION PEDS TO ADULT TRANSITION INITIAL DISCUSSION [facility] Start: 2010 Urine microalbumin profile DTAP,TDAP,TD (5 - Tdap) [facility] Start: 01-18-2008 HPV VACCINE (1 - 2-dose series) HPV VACCINE (1 - 2-dose series) [facility] Start: 2005 PNEUMOCOCCAL (1 - PCV) PNEUMOCOCCAL (1 - PCV) [facility] Start: 2005 Pneumococcal vaccination [facility] Start: 1999 Lipid panel Lipid Panel [facility] Start: 1999 Screening for malignant neoplasm of colon [facility] Start: 1999 Yearly Adult Physical Yearly Adult P hysical [facility] Bacteria identified in Urine by Culture URINE CULTURE Microbiology Routine 32 weeks gestation of Encounter for supervision of normal first in third trimester Gestational hypertension, third trimester Urinary frequency 05/16/2024 3:18 PM EDT [facility] Bacteria identified in Urine by Culture BACTERIAL CULTURE, URINE Microbiology Routine 7 weeks gestation of (HCC) 06/27/2025 9:02 AM EDT [facility] BACTERIAL VAGINOSIS NAAT BACTERIAL VAGINOSIS NAAT Lab Routine Vaginal discharge Vaginal odor 06/21/2024 4:11 PM EDT [facility] Work Phone: BACTERIAL VAGINOSIS NAAT BACTERIAL VAGINOSIS NAAT Lab Routine Vaginal itching 11/18/2024 8:59 AM [facility] End: 11-27-2024 BIOPHYSICAL PROFILE US WHI BIOPHYSICAL PROFILE US WHI Anc Imaging Routine Encounter for supervision of high risk in third trimester, antepartum 34 weeks gestation of Gestational hypertension, third trimester Once per week for 10 Occurrences starting 05/31/2024 until 11/27/2024 [facility] Comment on above: Once per week for 10 Occurrences starting 05/31/2024 until 11/27/2024 End: 12-13-2024 Blood type and Indirect antibody screen panel - Blood Type And Screen Lab Timed As needed (Lab) until discontinued starting 12/13/2024 [facility] Service Area Work Phone: Comment on above: As needed (Lab) unti l discontinued starting 12/13/2024 End: 02-07-2025 Blood type and Indirect antibody screen panel - Blood Type And Screen Lab Timed As needed (Lab) until discontinued starting 02/07/2025 [facility] Service Area Work Phone: Comment on above: As needed (Lab) unti l discontinued starting 02/07/2025 DOUGLAS/TRICHOMONAS NAAT DOUGLAS/TRICHOMONAS NAAT Lab Routine Vaginal discharge Vaginal odor 06/21/2024 4:11 PM EDT [facility] DOUGLAS/TRICHOMONAS NAAT DOUGLAS/TRICHOMONAS NAAT Lab Routine Vaginal itching 11/18/2024 8:59 AM [facility] Work Phone: Chlamydia trachomatis+Neisseria gonorrhoeae DNA [Presence] in Unspecified specimen by REYNA with probe detection GONORRHEA/CHLAMYDIA NAAT Lab Routine Encounter for IUD insertion Screen for STD (sexually transmitted disease) 08/29/2024 1:08 PM T [facility] Chlamydia trachomatis+Neisseria gonorrhoeae DNA [Presence] in Unspecified specimen by REYNA with probe detection GONORRHEA/CHLAMYDIA NAAT Lab Routine 7 weeks gestation of (HCC) 06/27/2025 9:02 AM EDT [facility] End: 05-14-2025 Choriogonadotropin.bet a subunit [Units/volume] in Serum or Plasma HCG QUANTITATIVE Lab Routine Missed menses Encounter for test, result positive ([facility]) 2x per week for 2 Occurrences starting 04/29/2025 until 05/14/2025, 1 completed [facility] Work Phone: Comment on above: 2x per week for 2 Oc currences starting 04/29/2025 until 05/14/2025, 1 completed CREATININE, 24 HOUR URINE CREATININE, 24 HOUR URINE Lab Routine 33 weeks gestation of Gestational hypertension, third trimester Ordered: 05/23/2024 [facility] Comment on above: Ordered: 05/23/2024 End: 06-05-2025 nonstress test NON-STRESS TEST Procedures Routine Gestational hypertension, third trimester Once per week for 8 Occurrences starting 05/16/2024 until 06/05/2025 [facility] Work Phone: Comment on above: Once per week for 8 Occurrences starting 05/16/2024 until 06/05/2025 Insertion intrauteri ne device iud INSERT INTRAUTERINE DEVICE Procedures Routine control counseling Ordered: 08/01/2024 [facility] Work Phone: Comment on above: Ordered: 08/01/2024 Insertion intrauteri ne device iud INSERT INTRAUTERINE DEVICE Procedures Routine Encounter for IUD insertion Ordered: 08/29/2024 [facility] Work Phone: Comment on above: Ordered: 08/29/2024 End: 12-13-2024 Moderate Sedation Moderate Sedation Procedures Routine Once for 1 Occurrences starting 12/13/2024 until 12/13/2024 [facility] Work Phone: Comment on above: Once for 1 Occurrenc es starting 12/13/2024 until 12/13/2024 End: 02-07-2025 Moderate Sedation Moderate Sedation Procedures Routine Once for 1 Occurrences starting 02/07/2025 until 02/07/2025 [facility] Work Phone: Comment on above: Once for 1 Occurrenc es starting 02/07/2025 until 02/07/2025 Patient Education ED Abdominal P ain, Early [facility] Work Phone: Patient referral [facility] Work Phone: Procedure [facility] Protein [Mass/time] in 24 hour Urine PROTEIN, 24 HOUR URINE Lab Routine 33 weeks gestation of Gestational hypertension, third trimester Ordered: 05/23/2024 [facility] Work Phone: Comment on above: Ordered: 05/23/2024 End: 12-13-2024 Pulse oximetry, continuous Pulse oximetry, continuous Respiratory Care Routine Continuous until discontinued starting 12/13/2024 [facility] Work Phone: Comment on above: Continuous until dis continued starting 12/13/2024 End: 12-13-2024 Pulse oximetry, spot Pulse oximetry, spot Respiratory Care Routine Once for 1 Occurrences starting 12/13/2024 until 12/13/2024 [facility] Work Phone: Comment on above: Once for 1 Occurrenc es starting 12/13/2024 until 12/13/2024 Removal intrauterine device iud REMOVE INTRAUTERINE DEVICE Procedures Routine Encounter for IUD removal Ordered: 03/26/2025 [facility] Work Phone: Comment on above: Ordered: 03/26/2025 ROUTINE, GROUP B STREP PCR ROUTINE, GROUP B STREP PCR Microbiology Routine 35 weeks gestation of Encounter for supervision of high risk in third trimester, antepartum Gestational hypertension, third trimester 06/07/2024 2:55 PM EDT [facility] Work Phone: TRICHOMONAS VAGINALI S NAAT TRICHOMONAS VAGINALIS NAAT Lab Routine Screen for STD (sexually transmitted disease) 7 weeks gestation of ([facility]) 06/27/2025 9:02 AM EDT [facility] Work Phone: [facility] NEGATED: Highlighted row has been ruled out! Planned Goals not documented [facility] Work Phone: Immunizations Immunization Date Immunization Notes Care Provider Jimenez turner 08-14-2024 influenza, seasonal, injectable Cata Delaat 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 Work Phone: [facility] Work Phone: 08-14-2024 influenza, seasonal, injectable, preservative free Malorie Brown MD Work Phone: [facility] 08-14-2024 influenza virus vacc ine, unspecified formulation Natasha Haque 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 Work Phone: [facility] 04-19-2024 RHO(D) immune globul in- IV or IM Aminah Sanchez 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CN[employer] Work Phone: [facility] 04-19-2024 tetanus toxoid, redu lois diphtheria toxoid, and acellular pertussis vaccine, adsorbed Aminah Sanhcez 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 Work Phone: [facility] 08-28-2023 influenza virus vacc ine, unspecified formulation Octavio Balbuena MD Work Phone: [facility] 08-28-2023 influenza, injectabl e, quadrivalent, contains preservative Cata Delaat 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 Work Phone: [facility] Work Phone: 06-01-2021 tetanus toxoid, redu lois diphtheria toxoid, and acellular pertussis vaccine, adsorbed Cata Delaat 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 Work Phone: [facility] Work Phone: 07-10-2019 Influenza, injectabl e, Madin Hooven Canine Kidney, preservative free, quadrivalent Cata Delaat 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 Work Phone: [facility] Work Phone: 12-01-2017 Human Papillomavirus 9-valent vaccine Cata Delaat 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 Work Phone: [facility] Work Phone: 07-13-2017 Human Papillomavirus 9-valent vaccine Cata Delaat 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 Work Phone: [facility] Work Phone: 05-12-2017 Human Papillomavirus 9-valent vaccine Cata Delaat 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 Work Phone: [facility] Work Phone: 09-02-2016 influenza virus vacc ine, whole virus Cata Delaat 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 Work Phone: [facility] Work Phone: 09-01-2016 meningococcal polysaccharide (groups A, C, Y and W-135) diphtheria toxoid conjugate vaccine (MCV4P) [facility] Work Phone: 09-11-2015 influenza virus vacc ine, whole virus Cata Delaat 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 Work Phone: [facility] Work Phone: 08-15-2014 influenza virus vacc ine, whole virus Cata Delaat 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 Work Phone: [facility] Work Phone: 08-16-2013 influenza virus vacc ine, whole virus Cata Delaat 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 Work Phone: [facility] Work Phone: 08-25-2012 influenza virus vacc ine, whole virus Cata Delaat 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 Work Phone: [facility] Work Phone: 09-07-2011 influenza virus vacc ine, whole virus Cata Delaat 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 Work Phone: [facility] Work Phone: 06-02-2011 tetanus toxoid, redu lois diphtheria toxoid, and acellular pertussis vaccine, adsorbed Cata Rodriguez 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 Work Phone: [facility] Work Phone: 06-02-2011 varicella virus vaccine Cath mago Rodriguez 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 Work Phone: [facility] Work Phone: 06-02-2011 tetanus toxoid, redu lois diphtheria toxoid, and acellular pertussis vaccine, adsorbed Yasir Abreu [facility] [place] Work Phone: 06-02-2011 varicella virus vaccine Yasir anderson [facility] [place] Work Phone: 09-06-2008 influenza virus vacc ine, unspecified formulation Samantha Sousa PA-C Work Phone: [facility] 09-06-2008 influenza, seasonal, injectable Cata Jakub 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 Work Phone: [facility] Work Phone: 09-06-2008 influenza, seasonal, injectable Yasir Abreu [facility] [place] Work Phone: 12-05-2007 influenza virus vacc ine, unspecified formulation Samantha Sousa PA-C Work Phone: [facility] 12-05-2007 influenza virus vacc ine, whole virus Cata Delaat 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 Work Phone: [facility] Work Phone: 12-05-2007 influenza, seasonal, injectable Yasir Abreu [facility] [place] Work Phone: 05-20-2004 diphtheria, tetanus toxoids and acellular pertussis vaccine Samantha Sousa PA-C Work Phone: [facility] 05-20-2004 diphtheria, tetanus toxoids and acellular pertussis vaccine, unspecified formulation Cata Vinaat 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 Work Phone: [facility] Work Phone: 05-20-2004 measles, mumps and rubella virus vaccine Samantha Mijake VIEIRA-C Work Phone: [facility] 05-20-2004 poliovirus vaccine, inactivated Samantharoberto Mijake PA-C Work Phone: [facility] 05-20-2004 diphtheria, tetanus toxoids and acellular pertussis vaccine [facility] [place] Work Phone: 05-20-2004 measles, mumps and rubella virus vaccine [facility] [place] Work Phone: 05-20-2004 poliovirus vaccine, inactivated [facility] [place] Work Phone: 08-16-2001 poliovirus vaccine, inactivated Samantharoberto Sousa PA-C Work Phone: [facility] 08-16-2001 poliovirus vaccine, inactivated [facility] [place] Work Phone: 08-16-2000 diphtheria, tetanus toxoids and acellular pertussis vaccine Samantharoberto Mijake VEIIRA-C Work Phone: [facility] 08-16-2000 diphtheria, tetanus toxoids and acellular pertussis vaccine, unspecified formulation Cata Rodriguez 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 Work Phone: [facility] Work Phone: 08-16-2000 poliovirus vaccine, inactivated Cata Delaat 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 Work Phone: [facility] Work Phone: 08-16-2000 diphtheria, tetanus toxoids and acellular pertussis vaccine [facility] [place] Work Phone: 05-10-2000 haemophilus influenz ae type b vaccine, HbOC conjugate Samantha Sousa PA-C Work Phone: [facility] 05-10-2000 measles, mumps and rubella virus vaccine Samantha VIEIRA-C Work Phone: [facility] 05-10-2000 haemophilus influenz ae type b vaccine, PRP-OMP conjugate Yasir Abreu [facility] [place] Work Phone: 05-10-2000 measles, mumps and rubella virus vaccine Yasir Abreu [facility] [place] Work Phone: 02-02-2000 hepatitis B vaccine, pediatric or pediatric/adolescent dosage Samantha Sousa DARIEL-C Work Phone: [facility] 02-02-2000 varicella virus vaccine Samantha Sousa PA-C Work Phone: [facility] 02-02-2000 hepatitis B vaccine, pediatric or pediatric/adolescent dosage Yasir Abreu [facility] [place] Work Phone: 02-02-2000 varicella virus vaccine Yasir Anglin [facility] [place] Work Phone: 1999 diphtheria, tetanus toxoids and acellular pertussis vaccine Samantha Sousa PA-C Work Phone: [facility] 1999 diphtheria, tetanus toxoids and acellular pertussis vaccine, unspecified formulation Cata Delaat 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 Work Phone: [facility] Work Phone: 1999 haemophilus influenz ae type b vaccine, HbOC conjugate Samantha Sousa PA-C Work Phone: [facility] 1999 poliovirus vaccine, inactivated Cata Delaat 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 Work Phone: [facility] Work Phone: 1999 diphtheria, tetanus toxoids and acellular pertussis vaccine Yasir Abreu [facility] [place] Work Phone: 1999 haemophilus influenz ae type b vaccine, PRP-OMP conjugate Yasir [facility] [place] Work Phone: 1999 diphtheria, tetanus toxoids and acellular pertussis vaccine Samantharoberto Miy PA-C Work Phone: [facility] 1999 diphtheria, tetanus toxoids and acellular pertussis vaccine, unspecified formulation Cata Vinaat 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 Work Phone: [facility] Work Phone: 1999 haemophilus influenz ae type b vaccine, HbOC conjugate Samantha Miy PA-C Work Phone: [facility] 1999 poliovirus vaccine, inactivated Samantha Athy PA-C Work Phone: [facility] 1999 rotavirus vaccine, unspecified formulation Cata Delaat 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 Work Phone: [facility] Work Phone: 1999 rotavirus, live, pentavalent vaccine Samantha Miy PA-C Work Phone: [facility] 1999 diphtheria, tetanus toxoids and acellular pertussis vaccine Yasir [facility] [place] Work Phone: 1999 haemophilus influenz ae type b vaccine, PRP-OMP conjugate [facility] [place] Work Phone: 1999 poliovirus vaccine, inactivated [facility] [place] Work Phone: 1999 rotavirus, live, monovalent vaccine [facility] [place] Work Phone: 1999 diphtheria, tetanus toxoids and acellular pertussis vaccine Samantha Athy PA-C Work Phone: [facility] 1999 diphtheria, tetanus toxoids and acellular pertussis vaccine, unspecified formulation Cata Delaat 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 Work Phone: [facility] Work Phone: 1999 haemophilus influenz ae type b conjugate and Hepatitis B vaccine Cata Banuelosaat 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 Work Phone: [facility] Work Phone: 1999 haemophilus influenz ae type b vaccine, HbOC conjugate Samantharoberto Mijake PA-C Work Phone: [facility] 1999 haemophilus influenz ae type b vaccine, PRP-OMP conjugate Cata Rodriguez 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 Work Phone: [facility] Work Phone: 1999 hepatitis B vaccine, pediatric or pediatric/adolescent dosage Samantha Miy PA-C Work Phone: [facility] 1999 poliovirus vaccine, inactivated Samantha Hiwoty PA-C Work Phone: [facility] 1999 rotavirus vaccine, unspecified formulation Cata Rodriguez 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 Work Phone: [facility] Work Phone: 1999 rotavirus, live, pentavalent vaccine Samantharoberto Sousa PA-C Work Phone: [facility] 1999 diphtheria, tetanus toxoids and acellular pertussis vaccine [facility]ir [facility]breu [facility] [place] Work Phone: 1999 haemophilus influenz ae type b vaccine, PRP-OMP conjugate Yasir Abreu [facility] [place] Work Phone: 1999 hepatitis B vaccine, pediatric or pediatric/adolescent dosage Yasir Abreu [facility] [place] Work Phone: 1999 poliovirus vaccine, inactivated [facility] [place] Work Phone: 1999 hepatitis B vaccine, pediatric or pediatric/adolescent dosage Samantha Sousa PA-C Work Phone: [facility] 1999 hepatitis B vaccine, pediatric or pediatric/adolescent dosage Yasir Abreu [facility] Work Phone: Payers Date Payer Category Payer Managed Care (Private) [facility] [id number] 2024 Unknown [id number] 2024 Self-pay 2023 Private Health Insurance [id number] 2022 Private Health Insurance [id number] 2019 Unknown [id number]. [id number] 1999 Unknown [id number] 2.16.840.1.751913.3.579.2. 355 1999 Unknown [id number] 2.16.840.1.702340.3.579.2. 355 1999 Unknown [id number] 2.16.840.1.253904.3.579.2. 903 1999 Unknown [id number] 2.16.840.1.671747.3.579.2. 1245 1999 Unknown [id number] 2.16.840.1.060902.3.579.2. 1245 1999 Unknown [id number] 2.16.840.1.704523.3.579.2. 1244 1999 Unknown [id number] 2.16.840.1.216369.3.579.2. 1244 1999 Unknown [id number] 2.16.840.1.979550.3.579.2. 1244 1999 Unknown [id number] 2.16.840.1.707834.3.579.2. 1246 1999 Unknown [id number] 2.16.840.1.154983.3.579.2. 1246 Unknown [id number] Unknown [id number] Unknown [id number] 2.16.840.1.296986.3.579.2. 462 Unknown [id number] 2.16.840.1.200704.3.579.2. 462 Unknown [id number] 2.16.840.1.962876.3.579.2. 462 Unknown [id number] 2.16.840.1.507049.3.579.2. 462 Social History Date Type Detail Facility Start: 12-09-2020 End: 12-19-2024 Tobacco smoking status [facility] Never smoker [facility] Start: 12-09-2020 End: 09-07-2023 Tobacco use and exposure Never used [facility] Start: 12-09-2020 End: 04-29-2025 Alcohol intake Ex-drinker (finding) [facility] Start: 12-09-2020 Alcohol Comment occasionally [facility] Start: 1999 Sex Assigned At Not on file [facility] Start: 11-18-2024 End: 03-05-2025 Exposure to SARS-CoV-2 (event) Not sure [facility] Start: 06-14-2022 End: 05-08-2023 Alcohol intake Not Asked [facility] Start: 05-08-2023 End: 09-07-2023 History of Social function [facility] Start: 05-08-2023 End: 09-07-2023 Tobacco use panel [facility] Start: 09-07-2023 End: 03-05-2025 Alcohol intake Current drinker of alcohol (finding) [facility] Start: 09-30-2012 National Score (1-100), lower number is lower risk 71 [facility] Start: 09-07-2023 End: 12-13-2024 Alcohol Comment occasional [facility] Start: 10-14-2023 [facility] Start: 01-12-2024 Tobacco smoking status NHIS Unknown if ever smoked [facility] Start: 2000 Sex Assigned At Female [facility] NEGATED: Highlighted row - - [facility] [place] Work Phone: Goals Date Patient Goal Desired Activity /State Personal health goal Personal health goal Functional Status Date Assessment Result Facility 05-15-2024 Are you deaf, or do you have serious difficulty hearing No 05/15/2024 2:56 AM EDT Arabella Solano RN [facility] 05-15-2024 Are you blind, or do you have serious difficulty seeing, even when wearing glasses No 05/15/2024 2:56 AM Arabella Garza RN No [facility] 05-15-2024 Do you have serious difficulty walking or climbing stairs No 05/15/2024 2:56 AM NICKYT Arabella Solano RN No [facility] 05-15-2024 Do you have difficul ty dressing or bathing No 05/15/2024 2:56 AM NICKYT Arabella Solano, GIL No [facility] 05-15-2024 Because of a physica l, mental, or emotional condition, do you have difficulty doing errands alone such as visiting a physician's office or shopping No 05/15/2024 2:56 AM Arabella Garza, GIL [facility] NEGATED: Highlighted row Functional performance Functional status health issues are not documented Disease [facility] [place] Work Phone: Mental Status Date Assessment Result Facility 05-15-2024 Because of a physical, mental, or emotional condition, do you have serious difficulty concentrating, remembering, or making decisions No 05/15/2024 2:56 AM EDT Arabella Solano, RN No [facility] NEGATED: Highlighted row Cognitive function [Interpretation] Cognitive status health issues are not documented Disease -[facility] [place] Work Phone: Clinical Notes 01-20-2014 to 06-25-2025 Shabnam Olivarez APRN.CHILDREN'S MINISTER - 06/25/2025 9:49 AM EDTPatient InstructionsNicole Azar MD - 06/19/2025 12:45 PM EDTTelephone Encounter - Cyndi Garcia RN - 06/18/2025 10:14 AM EDT Note Date & Type Note Facility 06-25-2025 Note HNO ID: [id number] Author: SHABNAM OLIVAREZ APRN.CHILDREN'S MINISTER Service: ? Author Type: Nurse Practitioner Type: Progress Notes Filed: 06/27/2025 09:07 Note Text: Patient reported x2 positive home tests. 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 INITIAL OB ASSESSMENT HPI: Kwadwo is a 25 year old White here to establish Obstetrical Care. Patient's last menstrual period was 05/07/2025 (exact date). from OB Dating Form. was planned Complaints: nausea/vomiting unable to take medication d/t fatigue. OB History Gravida2 Para1 Term1 Preterm0 AB0 Living1 SAB0 IAB0 Ectopic0 Multiple0 Live Births1 Previous history: Prior : never History of 4th degree laceration: No History of shoulder dystocia: No History of Hypertensive disorders including pre-eclampsia or gestational hypertension: Yes History of gestational diabetes: No Patient's Risk Screening for delivery: Have you had a prior diallo between 20w and 36w6d? No How many pregnancies have you had before? 1 Did you have a previous baby with a GBS Infection? No Please select all that apply for any prior : Baby small for gestational age MEDICAL/PSYCHOSOCIAL HISTORY: History of hemorrhage or bleeding concerns: No Thyroid Disease: No History of chronic hypertension: No, with only History of pre-existing diabetes: No No results found for: ABORHD BMI 30.98 kg/(m2) Last Pap: 11/27/2023, normal History of abnormal pap: No Prior treatment for cervical dysplasia: none. Last HPV: History of STDs: None Partner History of STDs: None Did you have a partner with Herpes? No Tobacco use: No E-Cigarette/Vaping Use: No Caffeine use: Yes Drug use: No Alcohol use: No Multivitamin with Folic acid: Yes Would refuse blood transfusion if medically necessary: [...] the following (please check all that apply)? Not interested Social History: Do you have any history of depression, anxiety, PTSD, or other mood problems? No Do you have a history of abuse or trauma that may impact your experience? No Are you currently employed? Yes Depression/Anxiety Screening: denies symptoms of depression. OB Depression and Anxiety Screening- This Encounter Feeling down, depressed, or hopeless: Not at all Little interest or pleasure in doing things: Not at all Feeling nervous, anxious, or on edge Not at all Not being able to stop or control worrying Not at all Anxiety Pre-Screening Total (If >/= 3 additional questions will be reviewed) 0 Genetic Screening: Partner present: Yes Patient verbalized knowledge of partner family health history: Yes Do you or your partner have any personal or family history of defects not previously discussed: No Do you have history of a complicated by anomaly, genetic condition, or demise: No Preeclampsia Risk Screening: Screening for prevention of preeclampsia: High risk factors: None Moderate risk ractors: Obesity (body mass index greater than 30) and Family history of pre-eclampsia (mother or sister) OB Risk Screening: Completed, positive findings include: Patient answered 'Yes' they had a prior diallo between 20w and 36w6d. 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 Asthma (HCC) Left lateral knee pain 01/20/2014 Patellar tendinitis of right knee 01/20/2014 Unspecified asthma(493.90) dxed age 6 initially on Singulair which caused Caba; PAST SURGICAL HISTORY Procedure Laterality Date KNEE SURGERY HX Right 2020 TOOTH EXTRACTION wisdom teeth Current Outpatient Medications Medication Sig Dispense Refill aspirin, enteric coated (ECOTRIN LOW STRENGTH) 81 mg EC tablet Take 1 tablet by mouth once daily. 90 tablet 3 21/iron fu/folic acid ( COMPLETE PO) Take by mouth. polyethylene glycol 3350 (MIRALAX) 17 gram/dose powder Take by mouth once daily. Dissolve dose in 4 - 8 ounces of liquid and take as directed. promethazine (PHENERGAN) 12.5 mg tablet Take 1-2 tablets by mouth every 6 hours as needed. 60 tablet 1 famotidine (PEPCID) 20 mg tablet Take 1 tablet by mouth two times a day. 60 tablet 2 folic acid (more content not included)... [facility] 06-25-2025 History of Present illness Narrative Patient reported x2 positive home tests. 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 INITIAL OB ASSESSMENT HPI: Kwadwo is a 25 year old White here to establish Obstetrical Care. Patient's last menstrual period was 05/07/2025 (exact date). from OB Dating Form. was planned Complaints: nausea/vomiting unable to take medication d/t fatigue. OB History Gravida2 Para1 Term1 Preterm0 AB0 Living1 SAB0 IAB0 Ectopic0 Multiple0 Live Births1 Previous history: Prior : never History of 4th degree laceration: No History of shoulder dystocia: No History of Hypertensive disorders including pre-eclampsia or gestational hypertension: Yes History of gestational diabetes: No Patient's Risk Screening for delivery: Have you had a prior diallo between 20w and 36w6d? No How many pregnancies have you had before? 1 Did you have a previous baby with a GBS Infection? No Please select all that apply for any prior : Baby small for gestational age MEDICAL/PSYCHOSOCIAL HISTORY: History of hemorrhage or bleeding concerns: No Thyroid Disease: No History of chronic hypertension: No, with only History of pre-existing diabetes: No No results found for: ABORHD BMI 30.98 kg/(m^2) Last Pap: 11/27/2023, normal History of abnormal pap: No Prior treatment for cervical dysplasia: none. Last HPV: History of STDs: None Partner History of STDs: None Did you have a partner with Herpes? No Tobacco use: No E-Cigarette/Vaping Use: No Caffeine use: Yes Drug use: No Alcohol use: No Multivitamin with Folic acid: Yes Would refuse blood transfusion if medically necessary: [...] the following (please check all that apply)? Not interested Social History: Do you have any history of depression, anxiety, PTSD, or other mood problems? No Do you have a history of abuse or trauma that may impact your experience? No Are you currently employed? Yes Depression/Anxiety Screening: denies symptoms of depression. OB Depression and Anxiety Screening- This Encounter Feeling down, depressed, or hopeless: Not at all Little interest or pleasure in doing things: Not at all Feeling nervous, anxious, or on edge Not at all Not being able to stop or control worrying Not at all Anxiety Pre-Screening Total (If >/= 3 additional questions will be reviewed) 0 Genetic Screening: Partner present: Yes Patient verbalized knowledge of partner family health history: Yes Do you or your partner have any personal or family history of defects not previously discussed: No Do you have history of a complicated by anomaly, genetic condition, or demise: No Preeclampsia Risk Screening: Screening for prevention of preeclampsia: High risk factors: None Moderate risk ractors: Obesity (body mass index greater than 30) and Family history of pre-eclampsia (mother or sister) OB Risk Screening: Completed, positive findings include: Patient answered 'Yes' they had a prior diallo between 20w and 36w6d. 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 Asthma (HCC) Left lateral knee pain 01/20/2014 Patellar tendinitis of right knee 01/20/2014 Unspecified asthma(493.90) dxed age 6 initially on Singulair which caused Caba; PAST SURGICAL HISTORY Procedure Laterality Date KNEE SURGERY HX Right 2020 TOOTH EXTRACTION wisdom teeth Current Outpatient Medications Medication Sig Dispense Refill aspirin, enteric coated (ECOTRIN LOW STRENGTH) 81 mg EC tablet Take 1 tablet by mouth once daily. 90 tablet 3 21/iron fu/folic acid ( COMPLETE PO) Take by mouth. polyethylene glycol 3350 (MIRALAX) 17 gram/dose powder Take by mouth once daily. Dissolve dose in 4 - 8 ounces of liquid and take as directed. promethazine (PHENERGAN) 12.5 mg tablet Take 1-2 tablets by mouth every 6 hours as needed. 60 tablet 1 famotidine (PEPCID) 20 mg tablet Take 1 tablet by mouth two times a day. 60 tablet 2 folic acid/vit B complex and C (FOLIC ACID XTRA ORAL) Take by mouth. docusate sodium (COLACE ORAL) Take by mouth. acetaminophen (TYLENOL 8 HOUR ORAL) Take by mouth. No current facility-administered medications for this visit. Allergies As of Date: 06/27/2025 Allergen Noted Reaction LEVETIRACETAM 12/09/2020 Hives and Swelling SHELLFISH 03/27/2010 Hives SUMATRIPTAN 05/16/2024 Other: See Comments Fully Assessed 06/27/2025 Does patient have penicillin allergy: No REVIEW OF SYSTEMS: GENERAL: Negative for: Fever or Chills HEENT: Negative for: Headache, Impaired Vision, Ringing in Ears, Nosebleeds NECK: Negative for: Swelling, Pain, Stiffness RESPIRATORY: Negative for: Cough, Shortness of breath, Wheezing GASTROINTESTINAL: Positive for: Nausea and Vomiting MUSCULOSKELETAL: Negative for: Muscle or joint pain, stiffness, Joint swelling NEUROLOGIC/PSYCHIATRIC: Negative for: Weakness, Paralysis, Numbness, Tingling, Tremor, Anxiety, Depression, Memory loss SKIN: Negative for: Rash, Itching GENITOURINARY: Negative for: vaginal itching, vaginal discharge, hematuria or dysuria SENSITIVE EXAM: The sensitive examination was discussed with the Patient or Patient's Authorized Master Technician. As applicable, any other physician, advance practice provider, medical student, or other health professional student that will be observing or involved in the sensitive examination for educational or training purposes was discussed with the Patient or Authorized Master Technician. The Patient or Authorized Master Technician has agreed to proceed with the sensitive examination. (Sensitive examination includes inspection and/or palpation of the breasts, pelvis, prostate and anorectal regions). PHYSICAL EXAM: BP 116/64 Wt 169 lb 6.4 oz (76.8kg) LMP 05/07/2025 GENERAL: pleasant in no apparent distress DERMATOLOGY: Normal, without lesions, non-icteric, and non-hirsute CHEST: Normal inspiratory effort BREAST: soft, non-tender, symmetric, no dominant mass, normal nipple-areolar complex, no lymphadenopathy, and no nipple discharge ABDOMEN: soft, non-tender, and no masses NEURO: alert and oriented x3,exam grossly non-focal PELVIS: External genitalia normal without lesions. Perineal body intact. No vaginal or cervical lesions. Cervix closed. No adnexal masses or tenderness. Clinical Pelvimetry: Pelvimetry clinically assessed as adequate Limited OB ultrasound exam: single intrauterine and POCUS performed. +cardiac activity, CRL consistent with LMP. Shabnam Olivarez, 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.CHILDREN'S MINISTER SBIRT Kwadwo Rodrigues was given the 4P's screening tool. Kwadwo answered No to all the questions, the result is determined to be negative. ASSESSMENT: 25 year old at 7w2d wks gestational age PLAN: 1) Patient oriented to practice. Patient given new OB orientation folder. Discussed nutrition, folic acid supplementation, dietary guidelines, exercise, smoking, alcohol, caffeine, and drug use. Discussed gestational weight gain guidelines. Discussed routine OB labs including STD/HIV. Discussed how to access Your guide to a health and the [employer]. Reviewed midwifery and shirt ironer services that are available. 2) Screening: Hemoglobin A1C: ordered Baby Aspirin: The patient has been counseled about the potential benefits of low dose aspirin in and our recommendation that this be offered to all patients, regardless of whether they meet the high risk criteria specified above. She Accepts Aneuploidy Screening: Discussed aneuploidy screening, nuchal translucency/first trimester early anatomy ultrasound and NIPT. The risks/benefits and limitations of NIPT/aneuploidy screening were reviewed including the potential for false negative and false positive results. The availability of genetic counseling was reviewed. Information on aneuploidy screening was provided. The patient chooses to proceed with First trimester early anatomy ultrasound (12-13w6d) and NIPT (10 weeks) Myriad Carrier Screening: Discussed myriad carrier screening. We discussed the availability of professional-society guided carrier screening and reviewed the conditions screened and limitations of screening. The availability of genetic counseling was reviewed. Information on carrier screening was provided. 3) Patient offered option of Virtual Visits. Patient unsure. May consider in future. 4) History of hypertension: Gestational Hypertension Discussed starting Aspirin 81 mg daily at 12 weeks. Ordered baseline CMP and Protein/Creatinine Ratio today Obesity (BMI >30), will order early glucose screen or Hemoglobin A1C. Follow up in 4 weeks or sooner prn. Shabnam Olivarez APRN.CHILDREN'S MINISTER documented in this encounter [facility] 06-25-2025 Instructions Fanny Schumacher LPN - 06/25/2025 9:49 AM EDT Please select the following link to access the [facility] Your Guide to a Healthy . [email or web address] Please select the following link to access the [facility] Your Guide to a Healthy . [email or web address] documented in this encounter [facility] 06-19-2025 Note HNO ID: [id number] Author: NICOLE AZAR MD Service: ? 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 Patient/authorized wine sales representative agreed to proceed CHIEF COMPLAINT: The patient is a 25-year-old female, , presenting with concerns of nausea and vomiting during her current . HPI: Current - LMP: May 07, 2025 - Estimated gestational age: ~6 weeks - Has not had an official OB visit yet; first appointment scheduled for the . - Taking Miralax, Metamucil, and a vitamin. - Not . Nausea and Vomiting - Reports persistent nausea and vomiting throughout the day. - Sometimes experiences dry heaving instead of vomiting, especially if she hasn't eaten. - Vomit is sometimes green or yellow in color; denies presence of blood. - Denies right upper quadrant pain, fevers, chills, dizziness, or headaches. - Has tried using B6 and amelia hazel to help with the nausea without relief. - Taking Unisom and B6, but sometimes skips doses if she feels she won't be able to keep them down. - Interested in discussing alternative options for nausea management. Abdominal Cramping - Experiences lower abdominal cramping similar to her first . - Denies any extreme pain. Heartburn - Reports experiencing heartburn, but has not taken any medication for it. Kidney Stones - History of kidney stones during her first . - Not currently taking any medication for kidney stones. - Concerned about the potential recurrence of kidney stones during this . 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 Asthma (HCC) Left lateral knee pain 01/20/2014 Patellar tendinitis of right knee 01/20/2014 Unspecified asthma(493.90) dxed age 6 initially on [...] Grandfather lung Asthma Other gparents, cousin SOCIAL HISTORY[1] Current Outpatient Medications Medication Sig 21/iron fu/folic acid ( COMPLETE PO) Take by mouth. polyethylene glycol 3350 (MIRALAX) 17 gram/dose powder Take by mouth once daily. Dissolve dose in 4 - 8 ounces of liquid and take as directed. promethazine (PHENERGAN) 12.5 mg tablet Take 1-2 tablets by mouth every 6 hours as needed. famotidine (PEPCID) 20 mg tablet Take 1 tablet by mouth two times a day. folic acid/vit B complex and C (FOLIC ACID XTRA ORAL) Take by mouth. docusate sodium (COLACE ORAL) Take by mouth. acetaminophen (TYLENOL 8 HOUR ORAL) Take by mouth. No current facility-administered medications for this visit. ALLERGIES Allergen Reactions Levetiracetam Hives, Swelling Shellfish Hives Sumatriptan Other: See Comments Chest tightness and dizziness. REVIEW OF SYSTEMS: Constitutional: (-) fever, (-) chills Gastrointestinal: (+) nausea, (+) vomiting, (+) dry heaving, (+) heartburn, (+) lower abdominal cramping, (+) constipation, (-) right upper quadrant pain, (-) hematemesis Genitourinary: (-) vaginal bleeding Neurological: (-) dizziness, (-) headache Objective SENSITIVE EXAM: Sensitive exam not performed. PHYSICAL EXAM: BP 120/70 Wt 169 lb (76.7kg) LMP 05/07/2025 GENERAL: Pleasant; in no acute distress NEURO: alert and oriented x3 EXTREMITIES: normal Assessment AND Plan ASSESSMENT AND PLAN: 1. Nausea and vomiting in (HCC) (O21.9) 2. First trimester (HCC) (Z34.91) - Persistent nausea and vomiting; minimal relief with B6 and amelia hazel. - Start Phenergan 12.5 mg PO; may increase to 25 mg if inadequate relief; discussed potential sedation. - Continue B6 50 mg PO TID and Unisom ?-1 tab at night as tolerated. - Advised small, frequent meals and maintaining adequate hydration; popsicles recommended for fluid intake. - Instructed to seek ER care for IV hydration if unable to tolerate fluids for 24 hours. - Follow-up O (more content not included)... [facility] 06-19-2025 History of Present illness Narrative Images from the original note were not included. Obstetrics and Gynecology [place] VALET ATTENDANT Visit Subjective Recording using [employer] software for draft documentation of the visit was discussed with the 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 Patient/authorized wine sales representative agreed to proceed CHIEF COMPLAINT: The patient is a 25-year-old female, , presenting with concerns of nausea and vomiting during her current . HPI: Current - LMP: May 07, 2025 - Estimated gestational age: ~6 weeks - Has not had an official OB visit yet; first appointment scheduled for the . - Taking Miralax, Metamucil, and a vitamin. - Not . Nausea and Vomiting - Reports persistent nausea and vomiting throughout the day. - Sometimes experiences dry heaving instead of vomiting, especially if she hasn't eaten. - Vomit is sometimes green or yellow in color; denies presence of blood. - Denies right upper quadrant pain, fevers, chills, dizziness, or headaches. - Has tried using B6 and amelia hazel to help with the nausea without relief. - Taking Unisom and B6, but sometimes skips doses if she feels she won't be able to keep them down. - Interested in discussing alternative options for nausea management. Abdominal Cramping - Experiences lower abdominal cramping similar to her first . - Denies any extreme pain. Heartburn - Reports experiencing heartburn, but has not taken any medication for it. Kidney Stones - History of kidney stones during her first . - Not currently taking any medication for kidney stones. - Concerned about the potential recurrence of kidney stones during this . 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 Asthma (HCC) Left lateral knee pain 01/20/2014 Patellar tendinitis of right knee 01/20/2014 Unspecified asthma(493.90) dxed age 6 initially on [...] Grandfather lung Asthma Other gparents, cousin SOCIAL HISTORY[1] Current Outpatient Medications Medication Sig 21/iron fu/folic acid ( COMPLETE PO) Take by mouth. polyethylene glycol 3350 (MIRALAX) 17 gram/dose powder Take by mouth once daily. Dissolve dose in 4 - 8 ounces of liquid and take as directed. promethazine (PHENERGAN) 12.5 mg tablet Take 1-2 tablets by mouth every 6 hours as needed. famotidine (PEPCID) 20 mg tablet Take 1 tablet by mouth two times a day. folic acid/vit B complex and C (FOLIC ACID XTRA ORAL) Take by mouth. docusate sodium (COLACE ORAL) Take by mouth. acetaminophen (TYLENOL 8 HOUR ORAL) Take by mouth. No current facility-administered medications for this visit. ALLERGIES Allergen Reactions Levetiracetam Hives, Swelling Shellfish Hives Sumatriptan Other: See Comments Chest tightness and dizziness. REVIEW OF SYSTEMS: Constitutional: (-) fever, (-) chills Gastrointestinal: (+) nausea, (+) vomiting, (+) dry heaving, (+) heartburn, (+) lower abdominal cramping, (+) constipation, (-) right upper quadrant pain, (-) hematemesis Genitourinary: (-) vaginal bleeding Neurological: (-) dizziness, (-) headache Objective SENSITIVE EXAM: Sensitive exam not performed. PHYSICAL EXAM: BP 120/70 Wt 169 lb (76.7kg) LMP 05/07/2025 GENERAL: Pleasant; in no acute distress NEURO: alert and oriented x3 EXTREMITIES: normal Assessment & Plan ASSESSMENT AND PLAN: 1. Nausea and vomiting in (HCC) (O21.9) 2. First trimester (HCC) (Z34.91) - Persistent nausea and vomiting; minimal relief with B6 and amelia hazel. - Start Phenergan 12.5 mg PO; may increase to 25 mg if inadequate relief; discussed potential sedation. - Continue B6 50 mg PO TID and Unisom -1 tab at night as tolerated. - Advised small, frequent meals and maintaining adequate hydration; popsicles recommended for fluid intake. - Instructed to seek ER care for IV hydration if unable to tolerate fluids for 24 hours. - Follow-up OB appointment scheduled for May 27. 3. Heartburn (R12) - Start Pepcid BID. - May use Tums PRN; advised that Pepcid and Tums can be taken together. - If Pepcid ineffective, will consider Prilosec. 4. Personal history of urinary calculi (Z87.442) - History of kidney stones during prior . - Advised increased water intake and adding lemon or True Lemon packets to water to help prevent calcium oxalate stones. Medical Decision Making: Problems: Low: Acute, uncomplicated illness or injury Risk: Moderate: Drug management and Moderate risk from testing/treatment Medical Decision Making Level: 3 - Low Nicole Buck MD [1] Social History Tobacco Use Smoking status: Never Smokeless tobacco: Never Vaping Use Vaping status: Never Used Substance Use Topics Alcohol use: Not Currently Comment: occasional Drug use: Never documented in this encounter [facility] 06-18-2025 Telephone encounter Note Patient called and is requesting in office appointment. States she is unable to come into office today, requests tomorrow. Appointment scheduled. Cyndi Garcia RN [facility] 06-18-2025 Miscellaneous Notes Patient called and is requesting in office appointment. States she is unable to come into office today, requests tomorrow. Appointment scheduled. Cyndi Garcia RN add in virtul visit this afternoon or end of am, ok to use held slots on CP schedule. Cara Orlando MD LMP 05/07/2025 ega 6w0d Pt calling stating she is having nausea periodically and has tried Vitamin B6 alone & amelia & not working. Has been vomiting at work-vomiting 1 to 2 times daily. Pt asking for Rx for PRN as smells are very bothersome at work. Past had kidney stones and was prescribed Zofran-and worked well for Pt. Reviewed Doxylamine (Unisom Sleeptab) Vitamin B6 25mg three times per day in combination with doxylamine 12.5mg at bedtime to prevent nausea & Amelia extract 125-250mg every six hours, but did inform Pt that message would be sent to o/c provider to see if she is willing to send Rx to pharmacy for PRN Zofran and we would let her know. Pt voiced understanding. Viry Kennedy RN documented in this encounter [facility] 06-18-2025 Telephone encounter Note add in virtul visit this afternoon or end of am, ok to use held slots on CP schedule. Cara Orlando MD [facility] Work Phone: 06-18-2025 Telephone encounter Note LMP 05/07/2025 ega 6w0d Pt calling stating she is having nausea periodically and has tried Vitamin B6 alone & amelia & not working. Has been vomiting at work-vomiting 1 to 2 times daily. Pt asking for Rx for PRN as smells are very bothersome at work. Past had kidney stones and was prescribed Zofran-and worked well for Pt. Reviewed Doxylamine (Unisom Sleeptab) Vitamin B6 25mg three times per day in combination with doxylamine 12.5mg at bedtime to prevent nausea & Amelia extract 125-250mg every six hours, but did inform Pt that message would be sent to o/c provider to see if she is willing to send Rx to pharmacy for PRN Zofran and we would let her know. Pt voiced understanding. Viry Brent, RN [facility] 04-29-2025 Note HNO ID: [id number] Author: AMINAH SANCHEZ APRN.CNM Service: ? Author Type: Transfer Engineer Type: Progress Notes Filed: 04/30/2025 15:28 Note Text: Obstetrics and Gynecology [place] VALET ATTENDANT Visit Subjective Recording using ambient [employer] software for draft documentation of the visit was discussed with the 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 Patient/authorized wine sales representative agreed to proceed CHIEF COMPLAINT: Positive test HPI: The patient is a 25-year-old female, , presenting with concerns about irregular bleeding and possible following IUD removal. The patient had her IUD removed on March 27 and experienced a 6-day menstrual period starting the next day. She reports that while on the IUD, she did not have regular periods but experienced irregular bleeding. On April 12, she had 3 days of very light bleeding. Last week, she took multiple tests due to symptoms of nausea and lower abdominal cramping radiating to her back, which she describes as really painful. The tests were faintly positive but did not become darker. She has not yet had her expected menstrual period. She is currently taking vitamins and folate. She has a history of UTIs and nephrolithiasis and performed a urine test at home, which was negative for infection. She denies unilateral pain, excessive bleeding, or any other symptoms. She notes that during her previous with her son, her tests were clearly positive and progressively darker. 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 Asthma (HCC) Left lateral knee pain 01/20/2014 Patellar tendinitis of right knee 01/20/2014 Unspecified asthma(493.90) dxed age 6 initially on [...] Paternal Grandfather lung Asthma Other gparents, cousin Social History Tobacco Use Smoking status: Never Smokeless tobacco: Never Vaping Use Vaping status: Never Used Substance Use Topics Alcohol use: Not Currently Comment: occasional Drug use: Never Current Outpatient Medications Medication Sig folic acid/vit B complex and C (FOLIC ACID XTRA ORAL) Take by mouth. docusate sodium (COLACE ORAL) Take by mouth. acetaminophen (TYLENOL 8 HOUR ORAL) Take by mouth. No current facility-administered medications for this visit. ALLERGIES Allergen Reactions Levetiracetam Hives, Swelling Shellfish Hives Sumatriptan Other: See Comments Chest tightness and dizziness. REVIEW OF SYSTEMS: Gastrointestinal: (+) nausea, (+) lower abdominal cramping Genitourinary: (+) amenorrhea Musculoskeletal: (+) back pain Objective SENSITIVE EXAM: Sensitive exam not performed. PHYSICAL EXAM: BP 128/82 Wt 166 lb (75.3kg) LMP 03/28/2025 GENERAL: Pleasant; in no acute distress PULMONARY: normal inspiratory effort ABDOMEN: soft, non-tender, no masses . No CVAT NEURO: alert and oriented x3 EXTREMITIES: normal Assessment AND Plan ASSESSMENT AND PLAN: 1. Encounter for test, result positive (HCC) (Z32.01) Positive home tests with faint lines; differential includes early or chemical . - Ordered serum hCG test to establish baseline levels. - If hCG levels are slightly elevated, repeat test in 2 days to assess trend. - Advised patient that if hCG levels reach a certain threshold, an ultrasound will be considered. - Educated patient on signs of ectopic , including severe, unrelenting pain and excessive bleeding, and advised to seek immediate medical attention if these occur. 2. Missed menses (N92.6) Irregular bleeding patterns post-IUD removal; likely due to hormonal regulation. - Informed patient that menstrual irregularities can persist for 3-4 months post-IUD removal. - Monitor menstrual cycle and report any significant changes. 3. Low back pain without sciatica, unspecified back pain laterality, unspecified chronicity (M54.50) Experiencing lower abdominal cramping radiating to bilateral lower back; similar to previous symptoms. - Ordered urine analysis and culture to rule out (more content not included)... [facility] 04-29-2025 History of Present illness Narrative Images from the original note were not included. Obstetrics and Gynecology [place] VALET ATTENDANT Visit Subjective Recording using [employer] software for draft documentation of the visit was discussed with the 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 Patient/authorized wine sales representative agreed to proceed CHIEF COMPLAINT: Positive test HPI: The patient is a 25-year-old female, , presenting with concerns about irregular bleeding and possible following IUD removal. The patient had her IUD removed on March 27 and experienced a 6-day menstrual period starting the next day. She reports that while on the IUD, she did not have regular periods but experienced irregular bleeding. On April 12, she had 3 days of very light bleeding. Last week, she took multiple tests due to symptoms of nausea and lower abdominal cramping radiating to her back, which she describes as really painful. The tests were faintly positive but did not become darker. She has not yet had her expected menstrual period. She is currently taking vitamins and folate. She has a history of UTIs and nephrolithiasis and performed a urine test at home, which was negative for infection. She denies unilateral pain, excessive bleeding, or any other symptoms. She notes that during her previous with her son, her tests were clearly positive and progressively darker. 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 Asthma (HCC) Left lateral knee pain 01/20/2014 Patellar tendinitis of right knee 01/20/2014 Unspecified asthma(493.90) dxed age 6 initially on [...] Paternal Grandfather lung Asthma Other gparents, cousin Social History Tobacco Use Smoking status: Never Smokeless tobacco: Never Vaping Use Vaping status: Never Used Substance Use Topics Alcohol use: Not Currently Comment: occasional Drug use: Never Current Outpatient Medications Medication Sig folic acid/vit B complex and C (FOLIC ACID XTRA ORAL) Take by mouth. docusate sodium (COLACE ORAL) Take by mouth. acetaminophen (TYLENOL 8 HOUR ORAL) Take by mouth. No current facility-administered medications for this visit. ALLERGIES Allergen Reactions Levetiracetam Hives, Swelling Shellfish Hives Sumatriptan Other: See Comments Chest tightness and dizziness. REVIEW OF SYSTEMS: Gastrointestinal: (+) nausea, (+) lower abdominal cramping Genitourinary: (+) amenorrhea Musculoskeletal: (+) back pain Objective SENSITIVE EXAM: Sensitive exam not performed. PHYSICAL EXAM: BP 128/82 Wt 166 lb (75.3kg) LMP 03/28/2025 GENERAL: Pleasant; in no acute distress PULMONARY: normal inspiratory effort ABDOMEN: soft, non-tender, no masses . No CVAT NEURO: alert and oriented x3 EXTREMITIES: normal Assessment & Plan ASSESSMENT AND PLAN: 1. Encounter for test, result positive (HCC) (Z32.01) Positive home tests with faint lines; differential includes early or chemical . - Ordered serum hCG test to establish baseline levels. - If hCG levels are slightly elevated, repeat test in 2 days to assess trend. - Advised patient that if hCG levels reach a certain threshold, an ultrasound will be considered. - Educated patient on signs of ectopic , including severe, unrelenting pain and excessive bleeding, and advised to seek immediate medical attention if these occur. 2. Missed menses (N92.6) Irregular bleeding patterns post-IUD removal; likely due to hormonal regulation. - Informed patient that menstrual irregularities can persist for 3-4 months post-IUD removal. - Monitor menstrual cycle and report any significant changes. 3. Low back pain without sciatica, unspecified back pain laterality, unspecified chronicity (M54.50) Experiencing lower abdominal cramping radiating to bilateral lower back; similar to previous symptoms. - Ordered urine analysis and culture to rule out UTI or other causes. - Monitor pain and report any worsening or persistent symptoms. Aminah Sanchez APRN.CNM documented in this encounter [facility] 04-29-2025 Telephone encounter Note Patient scheduled [facility] 04-29-2025 Miscellaneous Notes Patient scheduled Left message for patient to call office. No available openings with any provider tomorrow. AG does have some on 04/30 though. Lisa Bernal RN If I have an opening, I can see her or another provider can. Natasha Haque APRN.CHILDREN'S MINISTER Patient had IUD removed on 03/26. Had a menses on 03/28. On 04/12 she had light spotting for 3 days, but it was accompanied by intense cramping and nausea. She took a +UPT on Monday and it remained positive for 2 days later. Yesterday, she took a test and the 2nd line was faint. Patient questioning if she had a chemical . Would you like patient to schedule an appointment for tomorrow to discuss or to order HCG quant? Gale Michel RN documented in this encounter [facility] 04-28-2025 Telephone encounter Note Left message for patient to call office. No available openings with any provider tomorrow. AG does have some on 04/30 though. Lisa Bernal RN [facility] 04-28-2025 Telephone encounter Note If I have an opening, I can see her or another provider can. Natasha Haque APRN.OXANA [facility] 04-28-2025 Telephone encounter Note Patient had IUD removed on 03/26. Had a menses on 03/28. On 04/12 she had light spotting for 3 days, but it was accompanied by intense cramping and nausea. She took a +UPT on Monday and it remained positive for 2 days later. Yesterday, she took a test and the 2nd line was faint. Patient questioning if she had a chemical . Would you like patient to schedule an appointment for tomorrow to discuss or to order HCG quant? Gale Michel RN [facility] 03-26-2025 Instructions Natasha Haque APRN.OXANA - 03/26/2025 2:35 PM EDT Images from the original note were not included. - Eat primarily whole foods. Limit carbs, especially processed carbs. Eat - Meat, vegetables and fruits with skin on if possible, eggs, cheese. - Do not drink your calories - 30 grams of protein for your first meal of the day decreases your hunger during the day by up to 40 %. Options include: Premier Protein or generic 30 gm protein 1 gm sugar or 5 eggs or 2-3 eggs and some unbreaded meat and/or cheese. No fruit, vegetables, bread, grain, yogurt, Smoothies, etc. - Walk for 15 minutes immediately after meal Oral Contraceptives: The Combined (Estrogen + Progestin) Pill Beginning the Combined Pill In most packs, the first 21 pills have active ingredients and the last 7 are non-medicine containing pills (placebo) or they may contain iron. There will be bleeding during the week you are taking the placebo pills. There are also packs that contain 24 active medication pills and only 4 placebo pills. These are formulated to give you a shorter period. There are 2 ways to start the pill: Quick Start: Take your first pill as soon as you get the pack. Next period: Take your first pill soon after your next period begins. If you take your first pill up to 5 days after the start of your period, you are protected against right away. If you take your first pill more than 5 days after the start of your period, you should use condoms as back-up for the first 7 days. How Combined Hormonal Contraceptives Work Combined oral contraceptive ( control) pills contain hormones like the ones your body makes (estrogen + a progestin). These hormones stop your ovaries from releasing eggs (ovulating). If your ovary does not release an egg, you cannot get . It is important to remember that no method of control is 100% effective. The combined pill is 93% effective with typical use (how real people use it in real life compared to how people used it in medical studies). There are several advantages associated with the pill: it is highly effective with typical use, is easy to start and stop, may improve acne, will make periods more regular and less painful, may help improve anemia, and long-term use is associated with a reduced risk of ovarian and uterine cancer. Possible Side Effects It can take up to three months for your body to become adjusted to the combined pill. The more common side effects experienced now are breakthrough (unexpected) spotting or bleeding; nausea or vomiting; breast tenderness; and mild fluid retention. There is no long-term weight gain with the use of the combined pill. Most side effects resolve once you have been on the combined pill for three months. If these symptoms continue to occur after the first three months you should check with your physician to see if there is any physical cause and change to another control pill. Problems: Missed 1 pill: Take 2 pills the next day. Missed 2 pills: Take 2 pills the next day and 2 pills the following day. Also use another form of control (condoms) along with the pill for the rest of the month. Taking other medications: The control pill is less effective when you take the antibiotic rifampin, epilepsy (seizure) drugs such as phenytoin, carbamazepine, phenobarbital, topiramate, and some medications for HIV. Let your doctor know if you start taking any of these medications while on the pill. Symptoms to Notify Your Doctor with Immediately: The pill is considered safe for most people. Serious problems are rare. The symptoms below may indicate a serious problem: Pain in your chest or legs Continuous blurred vision Severe headaches Slurred speech Tingling or weakness on one side of your body Shortness of breath Swelling of one leg Refills of Control Pills You should see a health care provider every year for a refill of your prescription. If your prescription should before your next scheduled appointment, you can request a prescription extension if you call or message during regular business hours about at least 1-2 weeks before you need to start the new package of pills. Some information adapted from [employer] Access [employer] For more information see [email or web address] combination control pills documented in this encounter [facility] 03-26-2025 Note HNO ID: [id number] Author: NATASHA HAQUE APRN.CNP Service: ? Author Type: Nurse Practitioner Type: Progress Notes Filed: 03/26/2025 14:56 Note Text: Kwadwo presents for removal of IUD due to weight gain. UNIVERSAL PROTOCOL / SAFETY CHECKLIST Procedure to be Performed: Intrauterine device removal - Mirena Sign In: A Moment of CARE was completed. Appropriate PPE (Personal Protective Equipment) worn by all providers involved with the procedure. Special equipment utilized ring forceps. Patient/Surrogate Stated/Verified: Patient name, Date of , Relevant allergies, and The intended procedure Time Out: Relevant labs, photos, and/or imaging studies are not applicable. Intended patient and procedure match the source document(s) (e.g. consent, HANDP, associated studies [imaging, pathology]) match the intended patient and procedure. Consent obtained and matches the intended procedure. Yes. Correct side/site is not applicable. Medications required for this procedure are verified. are not applicable. Fire risk assessed and is not applicable. Implants: are not applicable. Sign Out: Specimens not collected. All instruments, equipment, possible retained foreign bodies are accounted for. Yes. The post-procedure plan of care has been communicated to the patient or surrogate. PROCEDURE: Speculum placed in vagina, IUD string visualized and grasped with ring forceps. ASSESSMENT/PLAN: 1. Encounter for IUD removal - ICD9: V25.12, ICD10: Z30.432 (primary diagnosis) IUD removed without difficulty, intact, and patient tolerated procedure well. Contraception plans: oral contraceptives - REMOVE INTRAUTERINE DEVICE 2. Encounter for repeat prescription of oral contraceptives - ICD9: V25.01, ICD10: Z30.41 - discussed with patient on how to take OCP's. Given written information. - counseled on benefits, risks and possible severe side effects of OCP's. - discussed need to use Condoms to help to prevent STD's including HIV etc. - CHANDLER FE 11/18 (28) 1 MG-20 MCG (21)/75 MG (7) TABLET Follow-up at annual exam and with any concerns Natasha Haque APRN.OXANA Haque APRN.OXANA [facility] 03-26-2025 History of Present illness Narrative Kwadwo presents for removal of IUD due to weight gain. UNIVERSAL PROTOCOL / SAFETY CHECKLIST Procedure to be Performed: Intrauterine device removal - Mirena Sign In: A Moment of CARE was completed. Appropriate PPE (Personal Protective Equipment) worn by all providers involved with the procedure. Special equipment utilized ring forceps. Patient/Surrogate Stated/Verified: Patient name, Date of , Relevant allergies, and The intended procedure Time Out: Relevant labs, photos, and/or imaging studies are not applicable. Intended patient and procedure match the source document(s) (e.g. consent, H&P, associated studies [imaging, pathology]) match the intended patient and procedure. Consent obtained and matches the intended procedure. Yes. Correct side/site is not applicable. Medications required for this procedure are verified. are not applicable. Fire risk assessed and is not applicable. Implants: are not applicable. Sign Out: Specimens not collected. All instruments, equipment, possible retained foreign bodies are accounted for. Yes. The post-procedure plan of care has been communicated to the patient or surrogate. PROCEDURE: Speculum placed in vagina, IUD string visualized and grasped with ring forceps. ASSESSMENT/PLAN: 1. Encounter for IUD removal - ICD9: V25.12, ICD10: Z30.432 (primary diagnosis) IUD removed without difficulty, intact, and patient tolerated procedure well. Contraception plans: oral contraceptives - REMOVE INTRAUTERINE DEVICE 2. Encounter for repeat prescription of oral contraceptives - ICD9: V25.01, ICD10: Z30.41 - discussed with patient on how to take OCP's. Given written information. - counseled on benefits, risks and possible severe side effects of OCP's. - discussed need to use Condoms to help to prevent STD's including HIV etc. - CHANDLER FE 11/18 (28) 1 MG-20 MCG (21)/75 MG (7) TABLET Follow-up at annual exam and with any concerns MUNIRA Garcia APRN.CHILDREN'S MINISTER documented in this encounter [facility] 03-05-2025 History of Present illness Narrative Subjective FUV Patient ID: Kwadwo Rodrigues is a 25 y.o. female who presents for Results (Discuss 2 day prep for repeat colon). History of Present Illness: Kwadwo Rodrigues is a 25 y.o. female with a PMH of asthma who presents today for colonoscopy and fissure FUV. Colonoscopy 02/07/2025 showing anterior anal fissure, external small hemorrhoids observed during perianal exam; no bleeding was observed-procedure eventually aborted due to thick, semi-solid stool coating the rectum and rectosigmoid colon. Recommend repeat colonoscopy April 2025. Patient presents today stating that her fissure is showing some improvement with the nitroglycerin ointment prescribed. She states that she still has intermittent BRBPR. Her friend does PFT and suggested a squatty potty which seems to help her have more productive bowel movements. 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 She has not increased dosage. She has begun taking a probiotic. She denies rectal pain, abdominal pain, melena. She denies all upper GI concerns and red flags. JI 12/27/24 Kwadwo Rodrigues is a 24 y.o. female who presents to clinic today for follow-up to colonoscopy. Patient presents today with continuous concern for BRB per rectum, constipation and intermittent rectal pain. Colonoscopy 12/13/2024 showed an anterior annular fissure without bleeding. Some external small hemorrhoids observed during her annual exam. There was a large amount of semisolid brown stool precluding visualization and that was recommended to schedule repeat colonoscopy. At today's visit patient states that she recently went to an ER in [place] due to the BRB. Blood is in the toilet and on the toilet paper. She has been compliant with nifedipine cream however she has not noticed much of a difference yet. Nitroglycerin cream sent to her pharmacy which will be ready for her today. Patient has not been using much of the Anusol cream for hemorrhoids. She continues to use Tucks to help with the pain and inflammation. Patient's bowel movements are still strained here and there. She has been compliant with MiraLAX and Metamucil which has softened her stools. 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 She had a baby not long ago and has been dealing with these issues since he was born. Will schedule patient for repeat colonoscopy as her first 1 was inconclusive due to poor bowel prep. She will do a 2-day cleanse with MiraLAX and Gatorade. Risk of procedure discussed with patient to understanding. Patient will continue using Tucks pads to help with discomfort and irritation. She will continue nifedipine until she is able to grape picker the nitroglycerin ointment side effects gone over with the patient including headaches. Patient will continue sitz bath and Metamucil MiraLAX titrating dosages to assist with having easy soft bowel movements. She will increase her water intake to 64 ounces and forego strenuous exercises or movements that could put pressure on her rectum at this time. She will follow-up with me after her colonoscopy. Discussed with patient possible need for anorectal manometry and pelvic floor therapy in the future pending colonoscopy findings and constipation response to therapy. [facility] 11/28/24 Kwadwo Rodrigues is a 24 y.o. female with a PMH of adjustment disorder, asthma, tic disorder who presents to GI clinic today with hematochezia and rectal pain. No prior history of EGD or colonoscopy. Since her symptoms are progressing with her having softer stools with the help of Colace and no external hemorrhids present she will be scheudled for a colonoscopy. Anusol cream as well to help with her rectal pain. We discussed risk of procedure as well as possibility of internal hemorrhoid or fissure. Discussed importance of increased activity, increase water intake to at least 64 ounces, and she will start daily bowel regimen of MiraLAX and Metamucil. I will see patient in F/U post scope or sooner if problems arise. Colonoscopy 02/07/25 Findings Anterior anal fissure observed during perianal exam; no bleeding was observed External small hemorrhoids observed during perianal exam; no bleeding was observed There was thick, semi-solid stool coating the rectum and rectosigmoid colon. Procedure aborted. Recommendation Follow up with PCP Schedule repeat colonoscopy, due: 05/08/2025 Inadequate bowel preparation Colonoscopy 12/13/24 Findings Anterior anal fissure observed during perianal exam; no bleeding was observed External small hemorrhoids observed during perianal exam; no bleeding was observed There was a large amount of semi-solid brown stool, precluding visualization. Recommendation Schedule repeat colonoscopy, due: 03/13/2025 Inadequate bowel preparation Start nifedipine ointment Review of Systems ROS Negative unless otherwise stated above. Past Medical/Surgical History Medical History[1] Surgical History[2] Social History reports that she has never smoked. She has never used smokeless tobacco. She reports current alcohol use. She reports that she does not use drugs. Family History family history is not on file. Allergies RX Allergies[3] Medications Current Outpatient Medications Medication Instructions docusate sodium (COLACE ORAL) Take by mouth. no122/iron/folic acid ( MULTI ORAL) Take by mouth. Proair Digihaler 180 mcg, Every 6 hours PRN Review of Systems Constitutional: Negative for appetite change, chills, fever and unexpected weight change. HENT: Negative for mouth sores, nosebleeds, trouble swallowing and voice change. Respiratory: Negative for cough, choking and shortness of breath. Cardiovascular: Negative for chest pain, palpitations and leg swelling. Gastrointestinal: Positive for anal bleeding and constipation. Negative for abdominal distention, abdominal pain, blood in stool, diarrhea, nausea, rectal pain and vomiting. Genitourinary: Negative for flank pain and hematuria. Musculoskeletal: Negative for arthralgias, joint swelling and myalgias. Skin: Negative for color change and rash. Allergic/Immunologic: Negative for environmental allergies, food allergies and immunocompromised state. Neurological: Negative for dizziness, tremors, seizures, syncope, weakness and light-headedness. Hematological: Does not bruise/bleed easily. Psychiatric/Behavioral: Negative for agitation and confusion. The patient is not nervous/anxious. Objective Physical Exam Vitals reviewed. Constitutional: General: She is not in acute distress. Appearance: Normal appearance. She is obese. She is not ill-appearing, toxic-appearing or diaphoretic. HENT: Head: Normocephalic and atraumatic. Eyes: Extraocular Movements: Extraocular movements intact. Pupils: Pupils are equal, round, and reactive to light. Cardiovascular: Rate and Rhythm: Normal rate and regular rhythm. Heart sounds: Normal heart sounds. No murmur heard. Pulmonary: Effort: Pulmonary effort is normal. No respiratory distress. Breath sounds: Normal breath sounds. Abdominal: General: Abdomen is protuberant. Bowel sounds are normal. Palpations: Abdomen is soft. There is no hepatomegaly. Tenderness: There is no abdominal tenderness. Musculoskeletal: General: Normal range of motion. Cervical back: Normal range of motion. Right lower leg: No edema. Left lower leg: No edema. Skin: General: Skin is warm and dry. Coloration: Skin is not jaundiced or pale. Neurological: General: No focal deficit present. Mental Status: She is alert and oriented to person, place, and time. Motor: No weakness. Gait: Gait normal. Psychiatric: Mood and Affect: Mood normal. Thought Content: Thought content normal. Judgment: Judgment normal. BP 124/84 (BP Location: Right arm, Patient Position: Sitting, BP Cuff Size: Large adult) Pulse 58 Resp 18 Ht 1.575 m (5' 2) Wt 72.8 kg (160 lb 6.4 oz) SpO2 99% BMI 29.34 kg/m Lab Results Component Value Date WBC 5.1 10/14/2020 HGB 12.6 10/14/2020 HCT 36.4 10/14/2020 MCV 95 10/14/2020 PLT 181 10/14/2020 No lab exists for component: LABALBU No results found for: AFP No results found for: TSH Assessment/Plan Kwadwo Rodrigues is a 25 y.o. female with a PMH of asthma who presents today for colonoscopy and fissure FUV. Due to patient's aborted second colonoscopy overall trial Suflave. Sample given the patient upon this visit. Also recommended that patient increase MiraLAX to twice daily 2 teaspoons. Increase her water intake and activity. Please referral for PFT. Patient will let me know how Suflave works for her most likely have to do 2-day prep. Diagnoses and all orders for this visit: Constipation, unspecified constipation type - Referral to Physical Therapy; Future - Colonoscopy Screening; Average Risk Patient; Future Blood in stool - Colonoscopy Screening; Average Risk Patient; Future Anal fissure - Referral to Physical Therapy; Future - Colonoscopy Screening; Average Risk Patient; Future Encounter for screening colonoscopy - Colonoscopy Screening; Average Risk Patient; Future Cata IGNACIO [1] Past Medical History: Diagnosis Date Acute upper respiratory infection, unspecified 06/27/2016 Viral URI with cough Cough, unspecified 06/27/2016 Cough Other specified enthesopathies of unspecified lower limb, excluding foot Knee tendinitis Otitis media, unspecified, left ear 10/28/2014 Acute left otitis media Personal history of other diseases of the musculoskeletal system and connective tissue 10/28/2014 History of backache Personal history of other diseases of the respiratory system 02/24/2016 History of acute sinusitis Personal history of other specified conditions 10/28/2014 History of fever Strain of muscle, fascia and tendon of lower back, initial encounter 11/29/2016 Strain of muscle, fascia, or tendon of lower back Unspecified asthma with (acute) exacerbation ([facility]) 11/29/2016 Asthma exacerbation [2] Past Surgical History: Procedure Laterality Date OTHER SURGICAL HISTORY 01/10/2020 Oral surgery [3] Allergies Allergen Reactions Cephalexin Hives and Swelling Levetiracetam Hives and Swelling Shellfish Containing Products Hives Sumatriptan Unknown Chest tightness and dizziness. documented in this encounter [facility] Work Phone: 03-05-2025 Instructions SANDEE Calderon - 03/05/2025 9:00 AM EDT Camarena flav Daily bowel regimen: -MiraLAX 1 capful daily in 8 ounces of any liquid. You can increase or decrease the dose as needed the goal is to have a daily BM and feel fully evacuated. -Metamucil 1 teaspoon daily in 8 ounces of water -Footstool or squatty potty during bowel movements -Adequate water throughout the day -Walk 15 to 30 minutes daily to help promote GI motility -Follow up post colonoscopyh The following attachments cannot be sent through Care Everywhere.Anal fissure (Indonesian)How to Do a Sitz Bath (Indonesian)documented in this encounter [facility] Work Phone: 02-25-2025 History of Present illness Narrative Radiology Service Progress Note PATIENT NAME: Kwadwo Rodrigues DATE OF SERVICE: February 25, 2025 TIME: 11:15 AM PATIENT IDENTITY VERIFICATION COMPLETED USING TWO (2) IDENTIFIERS: Name and Date of confirmed by patient verbally. FALL SCREENING: Has the patient had 2 falls in the last year or 1 fall with injury or currently using an Ambulatory Assistive Device (Walker, Cane, Wheelchair, Crutches, etc.)? No PATIENT GENDER DATA: Assigned female at . status: : No status: NO. PATIENT RELEVANT IMPLANT DATA REVIEWED: Yes PATIENT PRESENTS WITH AN IMPLANTABLE OR ATTACHED AUTOBODY TECHNICIAN: No RADIOLOGY DEPARTMENT: General X-ray: Exam(s) Completed: Chest X-Ray PERIPHERAL IV DATA: Not applicable SIGNED BY: RT Yamile(R) February 25, 2025 11:15 AM documented in this encounter [facility] 02-25-2025 Note HNO ID: [id number] Author: GAMAL RUSSELL RT(Jina) Service: ? Author Type: Lawn Specialist Type: Progress Notes Filed: 02/25/2025 11:24 Note Text: Radiology Service Progress Note PATIENT NAME: Kwadwo Rodrigues DATE OF SERVICE: February 25, 2025 TIME: 11:15 AM PATIENT IDENTITY VERIFICATION COMPLETED USING TWO (2) IDENTIFIERS: Name and Date of confirmed by patient verbally. FALL SCREENING: Has the patient had 2 falls in the last year or 1 fall with injury or currently using an Ambulatory Assistive Device (Walker, Cane, Wheelchair, Crutches, etc.)? No PATIENT GENDER DATA: Assigned female at . status: : No status: NO. PATIENT RELEVANT IMPLANT DATA REVIEWED: Yes PATIENT PRESENTS WITH AN IMPLANTABLE OR ATTACHED AUTOBODY TECHNICIAN: No RADIOLOGY DEPARTMENT: General X-ray: Exam(s) Completed: Chest X-Ray PERIPHERAL IV DATA: Not applicable SIGNED BY: RT Yamile(R) February 25, 2025 11:15 AM [facility] 02-07-[address] Fields [facility] 02-07-[address] Fields documented in this encounter [facility] Work Phone: 02-07-2025 Hospital Discharge instructions Precious Cutler RN - 02/07/2025 8:20 AM EDT Patient Instructions Post Procedure The anesthetics, sedatives or narcotics which were given to you today will be acting in your body for the next 24 hours, so you might feel a little sleepy or groggy. This feeling should slowly wear off. Carefully read and follow the instructions. You received sedation today: - Do not drive or operate any machinery or power tools of any kind. - No alcoholic beverages today, not even beer or wine. - Do not make any important decisions or sign any legal documents. - No over the counter medications that contain alcohol or that may cause drowsiness. While it is common to experience mild to moderate abdominal distention, gas, or belching after your procedure, if any of these symptoms occur following discharge from the GI Lab or within one week of having your procedure, call the [facility] to be advised whether a visit to your nearest Urgent Care or Emergency Department is indicated. Take this paper with you if you go. - If you develop an allergic reaction to the medications that were given during your procedure such as difficulty breathing, rash, hives, severe nausea, vomiting or lightheadedness. - If you experience chest pain, shortness of breath, severe abdominal pain, fevers and chills. -If you develop signs and symptoms of bleeding such as blood in your spit, if your stools turn black, tarry, or bloody - If you have not urinated within 8 hours following your procedure. - If your IV site becomes painful, red, inflamed, or looks infected. If you received a biopsy/polypectomy/sphincterotom y the following instructions apply below: __ Do not use Aspirin containing products, non-steroidal medications or anti-coagulants for one week following your procedure. (Examples of these types of medications are: Advil, Arthrotec, Aleve, Coumadin, Ecotrin, Heparin, Ibuprofen, Indocin, Motrin, Naprosyn, Nuprin, Plavix, Vioxx, and Voltarin, or their generic forms. This list is not all-inclusive. Check with your physician or pharmacist before resuming medications.) __ Eat a soft diet today. Avoid foods that are poorly digested for the next 24 hours. These foods would include: nuts, beans, lettuce, red meats, and fried foods. Start with liquids and advance your diet as tolerated, gradually work up to eating solids. __ Do not have a Barium Study or Enema for one week. Your physician recommends the additional following instructions: -You have a contact number available for emergencies. The signs and symptoms of potential delayed complications were discussed with you. You may return to normal activities tomorrow. -Resume your previous diet or other if specified. -Continue your present medications. -We are waiting for your pathology results, if applicable. -The findings and recommendations have been discussed with you and/or family. - Please see Medication Reconciliation Form for new medication/medications prescribed. If you experience any problems or have any questions following discharge from the GI Lab, please call: [phone] from 7 am- 4:30 pm. In the event of an emergency please go to the closest Emergency Department or call Dr. Fields: [phone] You will receive a follow up text message tomorrow morning, if you are in need of a call back to address a non urgent question please respond with YES, and we will call you the following business day Monday through Monday. If you do not need to a call back please respond with the word NO and we will remove you from the call back list. documented in this encounter [facility] Work Phone: 02-07-2025 History and physical note Outpatient Hospital Procedure H&P Patient Profile-Procedures Initial Info Patient Demographics Name Kwadwo Rodrigues Date of 2000 Address [address] [facility] [id number] [facility] [address] Primary Secondary Phone Number [facility] Judy Stoner Procedure(s): Colonoscopy Primary contact name and number Extended Emergency Contact Information Primary Emergency Contact: SAMANTA RODRIGUES Mobile Relation: Spouse Preferred language: Indonesian Picker Feeder needed? No General Health Weight Vitals: 02/07/25 0747 Weight: 72.6 kg (160 lb) BMI Body mass index is 29.26 kg/m . Allergies Allergies Allergen Reactions Cephalexin Hives and Swelling Levetiracetam Hives and Swelling Shellfish Containing Products Hives Sumatriptan Unknown Chest tightness and dizziness. Past Medical History Past Medical History: Diagnosis Date Acute upper respiratory infection, unspecified 06/27/2016 Viral URI with cough Cough, unspecified 06/27/2016 Cough Other specified enthesopathies of unspecified lower limb, excluding foot Knee tendinitis Otitis media, unspecified, left ear 10/28/2014 Acute left otitis media Personal history of other diseases of the musculoskeletal system and connective tissue 10/28/2014 History of backache Personal history of other diseases of the respiratory system 02/24/2016 History of acute sinusitis Personal history of other specified conditions 10/28/2014 History of fever Strain of muscle, fascia and tendon of lower back, initial encounter 11/29/2016 Strain of muscle, fascia, or tendon of lower back Unspecified asthma with (acute) exacerbation ([facility]) 11/29/2016 Asthma exacerbation Provider assessment Diagnosis: Rectal bleeding Medication Reviewed - yes Prior to Admission medications Medication Sig Start Date End Date Taking? Authorizing Provider albuterol sulfate (Proair Digihaler) 90 mcg/actuation aero powdr breath act w/sensor inhaler Inhale 240 puffs every 6 hours if needed for wheezing. Yes Historical Provider, docusate sodium (COLACE ORAL) Take by mouth. Yes Historical Provider, no122/iron/folic acid ( MULTI ORAL) Take by mouth. Yes Historical Provider, Physical Exam Vitals: 02/07/25 0747 BP: 123/78 Pulse: 69 Resp: 13 Temp: 36.6 C (97.9 F) SpO2: 98% General: A&Ox3, NAD. CV: RRR. No murmur. Resp: CTA bilaterally. No wheezing, rhonchi or rales. Extrem: No edema. Oropharyngeal Classification II (hard and soft palate, upper portion of tonsils and uvula visible) ASA PS Classification 2 Sedation Plan Deep Procedure Plan - pre-procedural (re)assesment completed by physician: discharge/transfer patient when discharge criteria met Adal Fields MD 02/07/2025 7:53 AM [facility] Work Phone: 02-07-2025 History and physical note Outpatient Hospital Procedure H&P Patient Profile-Procedures Initial Info Patient Demographics Name Kwadwo Rodrigues Date of 2000 Address [address] [facility] [id number] [facility] [address] Primary Secondary Phone Number PCP Judy Stoner Procedure(s): Colonoscopy Primary contact name and number Extended Emergency Contact Information Primary Emergency Contact: SAMANTA RODRIGUES Mobile Relation: Spouse Preferred language: Indonesian Picker Feeder needed? No General Health Weight Vitals: 02/07/25 0747 Weight: 72.6 kg (160 lb) BMI Body mass index is 29.26 kg/m . Allergies Allergies Allergen Reactions Cephalexin Hives and Swelling Levetiracetam Hives and Swelling Shellfish Containing Products Hives Sumatriptan Unknown Chest tightness and dizziness. Past Medical History Past Medical History: Diagnosis Date Acute upper respiratory infection, unspecified 06/27/2016 Viral URI with cough Cough, unspecified 06/27/2016 Cough Other specified enthesopathies of unspecified lower limb, excluding foot Knee tendinitis Otitis media, unspecified, left ear 10/28/2014 Acute left otitis media Personal history of other diseases of the musculoskeletal system and connective tissue 10/28/2014 History of backache Personal history of other diseases of the respiratory system 02/24/2016 History of acute sinusitis Personal history of other specified conditions 10/28/2014 History of fever Strain of muscle, fascia and tendon of lower back, initial encounter 11/29/2016 Strain of muscle, fascia, or tendon of lower back Unspecified asthma with (acute) exacerbation ([facility]) 11/29/2016 Asthma exacerbation Provider assessment Diagnosis: Rectal bleeding Medication Reviewed - yes Prior to Admission medications Medication Sig Start Date End Date Taking? Authorizing Provider albuterol sulfate (Proair Digihaler) 90 mcg/actuation aero powdr breath act w/sensor inhaler Inhale 240 puffs every 6 hours if needed for wheezing. Yes Historical Provider, docusate sodium (COLACE ORAL) Take by mouth. Yes Historical Provider, no122/iron/folic acid ( MULTI ORAL) Take by mouth. Yes Historical Provider, Physical Exam Vitals: 02/07/25 0747 BP: 123/78 Pulse: 69 Resp: 13 Temp: 36.6 C (97.9 F) SpO2: 98% General: A&Ox3, NAD. CV: RRR. No murmur. Resp: CTA bilaterally. No wheezing, rhonchi or rales. Extrem: No edema. Oropharyngeal Classification II (hard and soft palate, upper portion of tonsils and uvula visible) ASA PS Classification 2 Sedation Plan Deep Procedure Plan - pre-procedural (re)assesment completed by physician: discharge/transfer patient when discharge criteria met Adal Fields MD 02/07/2025 7:53 AM documented in this encounter [facility] Work Phone: 01-14-2025 Telephone encounter Note Per Snow KEITH to establish care with her. [facility] 01-14-2025 Miscellaneous Notes Per Snow KEITH to establish care with her. documented in this encounter [facility] 12-27-2024 History of Present illness Narrative Subjective FU post colonoscopy Patient ID: Kwadwo Rodrigues is a 24 y.o. female who presents for Rectal Bleeding (Patient presents for follow up. She states she went to ER with more bleeding and pain than previous. She did not schedule another colonoscopy due to work constraints. /). History of Present Illness: Kwadwo Rodrigues is a 24 y.o. female who presents to clinic today for follow-up to colonoscopy. Patient presents today with continuous concern for BRB per rectum, constipation and intermittent rectal pain. Colonoscopy 12/13/2024 showed an anterior annular fissure without bleeding. Some external small hemorrhoids observed during her annual exam. There was a large amount of semisolid brown stool precluding visualization and that was recommended to schedule repeat colonoscopy. At today's visit patient states that she recently went to an ER in [place] due to the BRB. Blood is in the toilet and on the toilet paper. She has been compliant with nifedipine cream however she has not noticed much of a difference yet. Nitroglycerin cream sent to her pharmacy which will be ready for her today. Patient has not been using much of the Anusol cream for hemorrhoids. She continues to use Tucks to help with the pain and inflammation. Patient's bowel movements are still strained here and there. She has been compliant with MiraLAX and Metamucil which has softened her stools. 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 She had a baby not long ago and has been dealing with these issues since he was born. JI 11/28/24 Kwadwo Rodrigues is a 24 y.o. female with a PMH of adjustment disorder, asthma, tic disorder who presents to GI clinic today with hematochezia and rectal pain. No prior history of EGD or colonoscopy. Since her symptoms are progressing with her having softer stools with the help of Colace and no external hemorrhids present she will be scheudled for a colonoscopy. Anusol cream as well to help with her rectal pain. We discussed risk of procedure as well as possibility of internal hemorrhoid or fissure. Discussed importance of increased activity, increase water intake to at least 64 ounces, and she will start daily bowel regimen of MiraLAX and Metamucil. I will see patient in F/U post scope or sooner if problems arise. Colonoscopy 12/13/24 Findings Anterior anal fissure observed during perianal exam; no bleeding was observed External small hemorrhoids observed during perianal exam; no bleeding was observed There was a large amount of semi-solid brown stool, precluding visualization. Recommendation Schedule repeat colonoscopy, due: 03/13/2025 Inadequate bowel preparation Start nifedipine ointment Review of Systems ROS Negative unless otherwise stated above. Past Medical/Surgical History Past Medical History: Diagnosis Date Acute upper respiratory infection, unspecified 06/27/2016 Viral URI with cough Cough, unspecified 06/27/2016 Cough Other specified enthesopathies of unspecified lower limb, excluding foot Knee tendinitis Otitis media, unspecified, left ear 10/28/2014 Acute left otitis media Personal history of other diseases of the musculoskeletal system and connective tissue 10/28/2014 History of backache Personal history of other diseases of the respiratory system 02/24/2016 History of acute sinusitis Personal history of other specified conditions 10/28/2014 History of fever Strain of muscle, fascia and tendon of lower back, initial encounter 11/29/2016 Strain of muscle, fascia, or tendon of lower back Unspecified asthma with (acute) exacerbation ([facility]) 11/29/2016 Asthma exacerbation Past Surgical History: Procedure Laterality Date OTHER SURGICAL HISTORY 01/10/2020 Oral surgery Social History reports that she has never smoked. She has never used smokeless tobacco. She reports current alcohol use. She reports that she does not use drugs. Family History family history is not on file. Allergies Allergies Allergen Reactions Cephalexin Hives and Swelling Levetiracetam Hives and Swelling Shellfish Containing Products Hives Sumatriptan Unknown Chest tightness and dizziness. Medications Current Outpatient Medications Medication Instructions docusate sodium (COLACE ORAL) Take by mouth. hydrocortisone (ANUSOL-HC) 25 mg, rectal, 2 times daily no122/iron/folic acid ( MULTI ORAL) Take by mouth. Review of Systems Constitutional: Negative for appetite change, chills, fever and unexpected weight change. HENT: Negative for mouth sores, nosebleeds, trouble swallowing and voice change. Respiratory: Negative for cough, choking and shortness of breath. Cardiovascular: Negative for chest pain, palpitations and leg swelling. Gastrointestinal: Positive for blood in stool, constipation and rectal pain. Negative for abdominal distention, abdominal pain, anal bleeding, diarrhea, nausea and vomiting. Genitourinary: Negative for flank pain and hematuria. Musculoskeletal: Negative for arthralgias, joint swelling and myalgias. Skin: Negative for color change and rash. Allergic/Immunologic: Negative for environmental allergies, food allergies and immunocompromised state. Neurological: Negative for dizziness, tremors, seizures, syncope, weakness and light-headedness. Hematological: Does not bruise/bleed easily. Psychiatric/Behavioral: Negative for agitation and confusion. The patient is not nervous/anxious. Objective Physical Exam Vitals reviewed. Constitutional: General: She is not in acute distress. Appearance: Normal appearance. She is obese. She is not ill-appearing, toxic-appearing or diaphoretic. HENT: Head: Normocephalic and atraumatic. Eyes: Extraocular Movements: Extraocular movements intact. Pupils: Pupils are equal, round, and reactive to light. Cardiovascular: Rate and Rhythm: Normal rate and regular rhythm. Heart sounds: Normal heart sounds. No murmur heard. Pulmonary: Effort: Pulmonary effort is normal. No respiratory distress. Breath sounds: Normal breath sounds. Abdominal: General: Abdomen is protuberant. Bowel sounds are normal. Palpations: Abdomen is soft. There is no hepatomegaly. Tenderness: There is no abdominal tenderness. Musculoskeletal: General: Normal range of motion. Cervical back: Normal range of motion. Right lower leg: No edema. Left lower leg: No edema. Skin: General: Skin is warm and dry. Coloration: Skin is not jaundiced or pale. Neurological: General: No focal deficit present. Mental Status: She is alert and oriented to person, place, and time. Motor: No weakness. Gait: Gait normal. Psychiatric: Mood and Affect: Mood normal. Thought Content: Thought content normal. Judgment: Judgment normal. Temp 36.2 C (97.1 F) (Temporal) Ht 1.575 m (5' 2) Wt 72.7 kg (160 lb 3.2 oz) BMI 29.30 kg/m Lab Results Component Value Date WBC 5.1 10/14/2020 HGB 12.6 10/14/2020 HCT 36.4 10/14/2020 MCV 95 10/14/2020 PLT 181 10/14/2020 No lab exists for component: LABALBU No results found for: AFP No results found for: TSH Assessment/Plan Kwadwo Rodrigues is a 24 y.o. female who presents to clinic today for follow-up to colonoscopy. Will schedule patient for repeat colonoscopy as her first 1 was inconclusive due to poor bowel prep. She will do a 2-day cleanse with MiraLAX and Gatorade. Risk of procedure discussed with patient to understanding. Patient will continue using Tucks pads to help with discomfort and irritation. She will continue nifedipine until she is able to grape picker the nitroglycerin ointment side effects gone over with the patient including headaches. Patient will continue sitz bath and Metamucil MiraLAX titrating dosages to assist with having easy soft bowel movements. She will increase her water intake to 64 ounces and forego strenuous exercises or movements that could put pressure on her rectum at this time. She will follow-up with me after her colonoscopy. Discussed with patient possible need for anorectal manometry and pelvic floor therapy in the future pending colonoscopy findings and constipation response to therapy. There are no diagnoses linked to this encounter. Cata IGNACIO documented in this encounter [facility] Work Phone: 12-27-2024 Instructions SANDEE Calderon - 12/27/2024 2:30 PM EST Daily bowel regimen: -MiraLAX 1 capful daily in 8 ounces of any liquid. You can increase or decrease the dose as needed the goal is to have a daily BM and feel fully evacuated. -Metamucil 1 teaspoon daily in 8 ounces of water -Footstool or squatty potty during bowel movements -Adequate water throughout the day 64 oz -Walk 15 to 30 minutes daily to help promote GI motility Keep bowel movements soft and regular TUCKS Nitroglycerin, nifedipine until it arrives Sitz breath Colonoscopy F/U with me afterwards documented in this encounter [facility] Work Phone: 12-13-2024 Note Formatting of this n ote might be different from the original. Awaiting update regarding RX ointment [facility] 12-13-2024 Miscellaneous Notes Awaiting update regarding RX ointment Dr Fields to speak with pt/ at bedside; tolerating po fluids and cookies documented in this encounter [facility] Work Phone: 12-13-2024 Note Formatting of this n ote might be different from the original. Dr Fields to speak with pt/ [facility] Work Phone: 12-13-2024 Note Formatting of this n ote might be different from the original. at bedside; tolerating po fluids and cookies [facility] Work Phone: 12-13-2024 Attending History and physical note H&P reviewed. The patient was examined and there are no changes to the H&P. Source Note - Cata Rodriguez APRN-[facility] - 11/28/2024 8:00 AM EST Subjective Hematochezia and rectal pain Patient ID: Kwadwo Rodrigues is a 24 y.o. female who presents for Black or Bloody Stool (States that since she had her baby in May, she has been experiencing constipation. She takes multiple Colace's a day. BM are painful, straining. There is always blood in her stool, the amount of blood varies. She had rectal exam, did not find hemorrhoids. Has never had a colonoscopy. Hx of h. Pylori treated by PCP.). History of Present Illness: Kwadwo Rodrigues is a 24 y.o. female with a PMH of adjustment disorder, asthma, h. Pylori (1 year ago), tic disorder who presents to GI clinic today with hematochezia and rectal pain. No prior history of EGD or colonoscopy. Patient had a 3 hour vaginal delivery of a baby boy in May 2024 and had begun to have BRB in every stool, in the toilet and on toilet paper starting in June accompanied by rectal pain. She has been seen by OBGYN for this problem where a rectal exam was done to assess for external hemorrhoids, none were found. She has endorsed constipation with bowel movements being every 2-3 days. She takes 3 Colace a day to help her have soft BMs but she is still having rectal pain, straining and blood in her stool. She had tried to increase her fiber and water intake, however, difficult to manipulate her diet too much as she is focused on her . She denies dizziness, weakness and SOB. Last blood work this month with the [facility] showing no signs of anemia. She denies abdominal pain, melena, odynophagia, dysphagia, GERD, weight loss, appetite change. She denies NSAIDs, alcohol, smoking. Family history includes no GI malignancies but her dad has IBD. Review of Systems ROS Negative unless otherwise stated above. Past Medical/Surgical History Past Medical History: Diagnosis Date Acute upper respiratory infection, unspecified 06/27/2016 Viral URI with cough Cough, unspecified 06/27/2016 Cough Other specified enthesopathies of unspecified lower limb, excluding foot Knee tendinitis Otitis media, unspecified, left ear 10/28/2014 Acute left otitis media Personal history of other diseases of the musculoskeletal system and connective tissue 10/28/2014 History of backache Personal history of other diseases of the respiratory system 02/24/2016 History of acute sinusitis Personal history of other specified conditions 10/28/2014 History of fever Strain of muscle, fascia and tendon of lower back, initial encounter 11/29/2016 Strain of muscle, fascia, or tendon of lower back Unspecified asthma with (acute) exacerbation ([facility]) 11/29/2016 Asthma exacerbation Past Surgical History: Procedure Laterality Date OTHER SURGICAL HISTORY 01/10/2020 Oral surgery Social History reports that she has never smoked. She has never used smokeless tobacco. Family History family history is not on file. Allergies Allergies Allergen Reactions Cephalexin Hives and Swelling Levetiracetam Hives and Swelling Shellfish Containing Products Hives Sumatriptan Unknown Chest tightness and dizziness. Medications Current Outpatient Medications Medication Instructions docusate sodium (COLACE ORAL) Take by mouth. hydrocortisone (ANUSOL-HC) 25 mg, rectal, 2 times daily polyethylene glycol-electrolytes (Nulytely Lemon[place]) 420 gram solution 4,000 mL, oral, Once no122/iron/folic acid ( MULTI ORAL) Take by mouth. Review of Systems Constitutional: Negative for appetite change, chills, fever and unexpected weight change. HENT: Negative for mouth sores, nosebleeds, trouble swallowing and voice change. Respiratory: Negative for cough, choking and shortness of breath. Cardiovascular: Negative for chest pain, palpitations and leg swelling. Gastrointestinal: Positive for blood in stool, constipation and rectal pain. Negative for abdominal distention, abdominal pain, anal bleeding, diarrhea, nausea and vomiting. Genitourinary: Negative for flank pain and hematuria. Musculoskeletal: Negative for arthralgias, joint swelling and myalgias. Skin: Negative for color change and rash. Allergic/Immunologic: Negative for environmental allergies, food allergies and immunocompromised state. Neurological: Negative for dizziness, tremors, seizures, syncope, weakness and light-headedness. Hematological: Does not bruise/bleed easily. Psychiatric/Behavioral: Negative for agitation and confusion. The patient is not nervous/anxious. Objective Physical Exam Vitals reviewed. Constitutional: General: She is not in acute distress. Appearance: Normal appearance. She is obese. She is not ill-appearing, toxic-appearing or diaphoretic. HENT: Head: Normocephalic and atraumatic. Eyes: Extraocular Movements: Extraocular movements intact. Pupils: Pupils are equal, round, and reactive to light. Cardiovascular: Rate and Rhythm: Normal rate and regular rhythm. Heart sounds: Normal heart sounds. No murmur heard. Pulmonary: Effort: Pulmonary effort is normal. No respiratory distress. Breath sounds: Normal breath sounds. Abdominal: General: Abdomen is protuberant. Bowel sounds are normal. Palpations: Abdomen is soft. There is no hepatomegaly. Tenderness: There is no abdominal tenderness. Musculoskeletal: General: Normal range of motion. Cervical back: Normal range of motion. Right lower leg: No edema. Left lower leg: No edema. Skin: General: Skin is warm and dry. Coloration: Skin is not jaundiced or pale. Neurological: General: No focal deficit present. Mental Status: She is alert and oriented to person, place, and time. Motor: No weakness. Gait: Gait normal. Psychiatric: Mood and Affect: Mood normal. Thought Content: Thought content normal. Judgment: Judgment normal. BP 109/75 Pulse 61 Resp 16 Ht 1.575 m (5' 2) Wt 71.2 kg (157 lb) SpO2 100% BMI 28.72 kg/m Lab Results Component Value Date WBC 5.1 10/14/2020 HGB 12.6 10/14/2020 HCT 36.4 10/14/2020 MCV 95 10/14/2020 PLT 181 10/14/2020 No lab exists for component: LABALBU No results found for: AFP No results found for: TSH Assessment/Plan Kwadwo Rodrigues is a 24 y.o. female with a PMH of adjustment disorder, asthma, tic disorder who presents to GI clinic today with hematochezia and rectal pain. No prior history of EGD or colonoscopy. Since her symptoms are progressing with her having softer stools with the help of Colace and no external hemorrhids present she will be scheudled for a colonoscopy. Anusol cream as well to help with her rectal pain. We discussed risk of procedure as well as possibility of internal hemorrhoid or fissure. Discussed importance of increased activity, increase water intake to at least 64 ounces, and she will start daily bowel regimen of MiraLAX and Metamucil. I will see patient in F/U post scope or sooner if problems arise. Diagnoses and all orders for this visit: Rectal pain - hydrocortisone (Anusol-HC) 25 mg suppository; Insert 1 suppository (25 mg) into the rectum 2 times a day. - Colonoscopy Screening; Average Risk Patient; Future Blood in stool - Referral to Gastroenterology - Colonoscopy Screening; Average Risk Patient; Future Encounter for screening colonoscopy - polyethylene glycol-electrolytes (Nulytely Lemon[place]) 420 gram solution; Take 4,000 mL by mouth 1 time for 1 dose. Cata Rodriguez APRN, CNP [facility] Work Phone: 12-13-2024 History and physical note H&P reviewed. The patient was examined and there are no changes to the H&P. Source Note - SANDEE Calderon - 11/28/2024 8:00 AM EST Subjective Hematochezia and rectal pain Patient ID: Kwadwo Rodrigues is a 24 y.o. female who presents for Black or Bloody Stool (States that since she had her baby in May, she has been experiencing constipation. She takes multiple Colace's a day. BM are painful, straining. There is always blood in her stool, the amount of blood varies. She had rectal exam, did not find hemorrhoids. Has never had a colonoscopy. Hx of h. Pylori treated by PCP.). History of Present Illness: Kwadwo Rodrigues is a 24 y.o. female with a PMH of adjustment disorder, asthma, h. Pylori (1 year ago), tic disorder who presents to GI clinic today with hematochezia and rectal pain. No prior history of EGD or colonoscopy. Patient had a 3 hour vaginal delivery of a baby boy in May 2024 and had begun to have BRB in every stool, in the toilet and on toilet paper starting in June accompanied by rectal pain. She has been seen by OBGYN for this problem where a rectal exam was done to assess for external hemorrhoids, none were found. She has endorsed constipation with bowel movements being every 2-3 days. She takes 3 Colace a day to help her have soft BMs but she is still having rectal pain, straining and blood in her stool. She had tried to increase her fiber and water intake, however, difficult to manipulate her diet too much as she is focused on her . She denies dizziness, weakness and SOB. Last blood work this month with the [facility] showing no signs of anemia. She denies abdominal pain, melena, odynophagia, dysphagia, GERD, weight loss, appetite change. She denies NSAIDs, alcohol, smoking. Family history includes no GI malignancies but her dad has IBD. Review of Systems ROS Negative unless otherwise stated above. Past Medical/Surgical History Past Medical History: Diagnosis Date Acute upper respiratory infection, unspecified 06/27/2016 Viral URI with cough Cough, unspecified 06/27/2016 Cough Other specified enthesopathies of unspecified lower limb, excluding foot Knee tendinitis Otitis media, unspecified, left ear 10/28/2014 Acute left otitis media Personal history of other diseases of the musculoskeletal system and connective tissue 10/28/2014 History of backache Personal history of other diseases of the respiratory system 02/24/2016 History of acute sinusitis Personal history of other specified conditions 10/28/2014 History of fever Strain of muscle, fascia and tendon of lower back, initial encounter 11/29/2016 Strain of muscle, fascia, or tendon of lower back Unspecified asthma with (acute) exacerbation ([facility]) 11/29/2016 Asthma exacerbation Past Surgical History: Procedure Laterality Date OTHER SURGICAL HISTORY 01/10/2020 Oral surgery Social History reports that she has never smoked. She has never used smokeless tobacco. Family History family history is not on file. Allergies Allergies Allergen Reactions Cephalexin Hives and Swelling Levetiracetam Hives and Swelling Shellfish Containing Products Hives Sumatriptan Unknown Chest tightness and dizziness. Medications Current Outpatient Medications Medication Instructions docusate sodium (COLACE ORAL) Take by mouth. hydrocortisone (ANUSOL-HC) 25 mg, rectal, 2 times daily polyethylene glycol-electrolytes (Nulytely Lemon[place]) 420 gram solution 4,000 mL, oral, Once no122/iron/folic acid ( MULTI ORAL) Take by mouth. Review of Systems Constitutional: Negative for appetite change, chills, fever and unexpected weight change. HENT: Negative for mouth sores, nosebleeds, trouble swallowing and voice change. Respiratory: Negative for cough, choking and shortness of breath. Cardiovascular: Negative for chest pain, palpitations and leg swelling. Gastrointestinal: Positive for blood in stool, constipation and rectal pain. Negative for abdominal distention, abdominal pain, anal bleeding, diarrhea, nausea and vomiting. Genitourinary: Negative for flank pain and hematuria. Musculoskeletal: Negative for arthralgias, joint swelling and myalgias. Skin: Negative for color change and rash. Allergic/Immunologic: Negative for environmental allergies, food allergies and immunocompromised state. Neurological: Negative for dizziness, tremors, seizures, syncope, weakness and light-headedness. Hematological: Does not bruise/bleed easily. Psychiatric/Behavioral: Negative for agitation and confusion. The patient is not nervous/anxious. Objective Physical Exam Vitals reviewed. Constitutional: General: She is not in acute distress. Appearance: Normal appearance. She is obese. She is not ill-appearing, toxic-appearing or diaphoretic. HENT: Head: Normocephalic and atraumatic. Eyes: Extraocular Movements: Extraocular movements intact. Pupils: Pupils are equal, round, and reactive to light. Cardiovascular: Rate and Rhythm: Normal rate and regular rhythm. Heart sounds: Normal heart sounds. No murmur heard. Pulmonary: Effort: Pulmonary effort is normal. No respiratory distress. Breath sounds: Normal breath sounds. Abdominal: General: Abdomen is protuberant. Bowel sounds are normal. Palpations: Abdomen is soft. There is no hepatomegaly. Tenderness: There is no abdominal tenderness. Musculoskeletal: General: Normal range of motion. Cervical back: Normal range of motion. Right lower leg: No edema. Left lower leg: No edema. Skin: General: Skin is warm and dry. Coloration: Skin is not jaundiced or pale. Neurological: General: No focal deficit present. Mental Status: She is alert and oriented to person, place, and time. Motor: No weakness. Gait: Gait normal. Psychiatric: Mood and Affect: Mood normal. Thought Content: Thought content normal. Judgment: Judgment normal. BP 109/75 Pulse 61 Resp 16 Ht 1.575 m (5' 2) Wt 71.2 kg (157 lb) SpO2 100% BMI 28.72 kg/m Lab Results Component Value Date WBC 5.1 10/14/2020 HGB 12.6 10/14/2020 HCT 36.4 10/14/2020 MCV 95 10/14/2020 PLT 181 10/14/2020 No lab exists for component: LABALBU No results found for: AFP No results found for: TSH Assessment/Plan Kwadwo Rodrigues is a 24 y.o. female with a PMH of adjustment disorder, asthma, tic disorder who presents to GI clinic today with hematochezia and rectal pain. No prior history of EGD or colonoscopy. Since her symptoms are progressing with her having softer stools with the help of Colace and no external hemorrhids present she will be scheudled for a colonoscopy. Anusol cream as well to help with her rectal pain. We discussed risk of procedure as well as possibility of internal hemorrhoid or fissure. Discussed importance of increased activity, increase water intake to at least 64 ounces, and she will start daily bowel regimen of MiraLAX and Metamucil. I will see patient in F/U post scope or sooner if problems arise. Diagnoses and all orders for this visit: Rectal pain - hydrocortisone (Anusol-HC) 25 mg suppository; Insert 1 suppository (25 mg) into the rectum 2 times a day. - Colonoscopy Screening; Average Risk Patient; Future Blood in stool - Referral to Gastroenterology - Colonoscopy Screening; Average Risk Patient; Future Encounter for screening colonoscopy - polyethylene glycol-electrolytes (Nulytely Lemon[place]) 420 gram solution; Take 4,000 mL by mouth 1 time for 1 dose. Cata Rodriguez APRN [employer] documented in this encounter [facility] Work Phone: 12-13-2024 Hospital Discharge instructions Ibeth Barker RN - 12/13/2024 9:10 AM EST Patient Instructions Post Procedure The anesthetics, sedatives or narcotics which were given to you today will be acting in your body for the next 24 hours, so you might feel a little sleepy or groggy. This feeling should slowly wear off. Carefully read and follow the instructions. You received sedation today: - Do not drive or operate any machinery or power tools of any kind. - No alcoholic beverages today, not even beer or wine. - Do not make any important decisions or sign any legal documents. - No over the counter medications that contain alcohol or that may cause drowsiness. While it is common to experience mild to moderate abdominal distention, gas, or belching after your procedure, if any of these symptoms occur following discharge from the GI Lab or within one week of having your procedure, call the [facility] to be advised whether a visit to your nearest Urgent Care or Emergency Department is indicated. Take this paper with you if you go. - If you develop an allergic reaction to the medications that were given during your procedure such as difficulty breathing, rash, hives, severe nausea, vomiting or lightheadedness. - If you experience chest pain, shortness of breath, severe abdominal pain, fevers and chills. -If you develop signs and symptoms of bleeding such as blood in your spit, if your stools turn black, tarry, or bloody - If you have not urinated within 8 hours following your procedure. - If your IV site becomes painful, red, inflamed, or looks infected. If you received a biopsy/polypectomy/sphincterotom y the following instructions apply below: __ Do not use Aspirin containing products, non-steroidal medications or anti-coagulants for one week following your procedure. (Examples of these types of medications are: Advil, Arthrotec, Aleve, Coumadin, Ecotrin, Heparin, Ibuprofen, Indocin, Motrin, Naprosyn, Nuprin, Plavix, Vioxx, and Voltarin, or their generic forms. This list is not all-inclusive. Check with your physician or pharmacist before resuming medications.) __ Eat a soft diet today. Avoid foods that are poorly digested for the next 24 hours. These foods would include: nuts, beans, lettuce, red meats, and fried foods. Start with liquids and advance your diet as tolerated, gradually work up to eating solids. __ Do not have a Barium Study or Enema for one week. Your physician recommends the additional following instructions: -You have a contact number available for emergencies. The signs and symptoms of potential delayed complications were discussed with you. You may return to normal activities tomorrow. -Resume your previous diet or other if specified. -Continue your present medications. -We are waiting for your pathology results, if applicable. -The findings and recommendations have been discussed with you and/or family. - Please see Medication Reconciliation Form for new medication/medications prescribed. If you experience any problems or have any questions following discharge from the GI Lab, please call: [phone] from 7 am- 4:30 pm. In the event of an emergency please go to the closest Emergency Department or call Dr. Fields: [phone] You will receive a follow up text message tomorrow morning, if you are in need of a call back to address a non urgent question please respond with YES, and we will call you the following business day Monday through Monday. If you do not need to a call back please respond with the word NO and we will remove you from the call back list. documented in this encounter [facility] Work Phone: 11-28-2024 History of Present illness Narrative Subjective Hematochezia and rectal pain Patient ID: Kwadwo Rodrigues is a 24 y.o. female who presents for Black or Bloody Stool (States that since she had her baby in May, she has been experiencing constipation. She takes multiple Colace's a day. BM are painful, straining. There is always blood in her stool, the amount of blood varies. She had rectal exam, did not find hemorrhoids. Has never had a colonoscopy. Hx of h. Pylori treated by PCP.). History of Present Illness: Kwadwo Rodrigues is a 24 y.o. female with a PMH of adjustment disorder, asthma, tic disorder who presents to GI clinic today with hematochezia and rectal pain. No prior history of EGD or colonoscopy. Patient had a 3 hour vaginal delivery of a baby boy in May 2024 and had begun to have BRB in every stool, in the toilet and on toilet paper starting in June accompanied by rectal pain. She has been seen by OBGYN for this problem where a rectal exam was done to assess for external hemorrhoids, none were found. She has endorsed constipation with bowel movements being every 2-3 days. She takes 3 Colace a day to help her have soft BMs but she is still having rectal pain, straining and blood in her stool. She had tried to increase her fiber and water intake, however, difficult to manipulate her diet too much as she is focused on her . She denies dizziness, weakness and SOB. Last blood work this month with the [facility] showing no signs of anemia. She denies abdominal pain, melena, odynophagia, dysphagia, GERD, weight loss, appetite change. She denies NSAIDs, alcohol, smoking. Family history includes no GI malignancies but her dad has IBD. Review of Systems ROS Negative unless otherwise stated above. Past Medical/Surgical History Past Medical History: Diagnosis Date Acute upper respiratory infection, unspecified 06/27/2016 Viral URI with cough Cough, unspecified 06/27/2016 Cough Other specified enthesopathies of unspecified lower limb, excluding foot Knee tendinitis Otitis media, unspecified, left ear 10/28/2014 Acute left otitis media Personal history of other diseases of the musculoskeletal system and connective tissue 10/28/2014 History of backache Personal history of other diseases of the respiratory system 02/24/2016 History of acute sinusitis Personal history of other specified conditions 10/28/2014 History of fever Strain of muscle, fascia and tendon of lower back, initial encounter 11/29/2016 Strain of muscle, fascia, or tendon of lower back Unspecified asthma with (acute) exacerbation ([facility]) 11/29/2016 Asthma exacerbation Past Surgical History: Procedure Laterality Date OTHER SURGICAL HISTORY 01/10/2020 Oral surgery Social History reports that she has never smoked. She has never used smokeless tobacco. Family History family history is not on file. Allergies Allergies Allergen Reactions Cephalexin Hives and Swelling Levetiracetam Hives and Swelling Shellfish Containing Products Hives Sumatriptan Unknown Chest tightness and dizziness. Medications Current Outpatient Medications Medication Instructions docusate sodium (COLACE ORAL) Take by mouth. hydrocortisone (ANUSOL-HC) 25 mg, rectal, 2 times daily polyethylene glycol-electrolytes (Nulytely Lemon[place]) 420 gram solution 4,000 mL, oral, Once no122/iron/folic acid ( MULTI ORAL) Take by mouth. Review of Systems Constitutional: Negative for appetite change, chills, fever and unexpected weight change. HENT: Negative for mouth sores, nosebleeds, trouble swallowing and voice change. Respiratory: Negative for cough, choking and shortness of breath. Cardiovascular: Negative for chest pain, palpitations and leg swelling. Gastrointestinal: Positive for blood in stool, constipation and rectal pain. Negative for abdominal distention, abdominal pain, anal bleeding, diarrhea, nausea and vomiting. Genitourinary: Negative for flank pain and hematuria. Musculoskeletal: Negative for arthralgias, joint swelling and myalgias. Skin: Negative for color change and rash. Allergic/Immunologic: Negative for environmental allergies, food allergies and immunocompromised state. Neurological: Negative for dizziness, tremors, seizures, syncope, weakness and light-headedness. Hematological: Does not bruise/bleed easily. Psychiatric/Behavioral: Negative for agitation and confusion. The patient is not nervous/anxious. Objective Physical Exam Vitals reviewed. Constitutional: General: She is not in acute distress. Appearance: Normal appearance. She is obese. She is not ill-appearing, toxic-appearing or diaphoretic. HENT: Head: Normocephalic and atraumatic. Eyes: Extraocular Movements: Extraocular movements intact. Pupils: Pupils are equal, round, and reactive to light. Cardiovascular: Rate and Rhythm: Normal rate and regular rhythm. Heart sounds: Normal heart sounds. No murmur heard. Pulmonary: Effort: Pulmonary effort is normal. No respiratory distress. Breath sounds: Normal breath sounds. Abdominal: General: Abdomen is protuberant. Bowel sounds are normal. Palpations: Abdomen is soft. There is no hepatomegaly. Tenderness: There is no abdominal tenderness. Musculoskeletal: General: Normal range of motion. Cervical back: Normal range of motion. Right lower leg: No edema. Left lower leg: No edema. Skin: General: Skin is warm and dry. Coloration: Skin is not jaundiced or pale. Neurological: General: No focal deficit present. Mental Status: She is alert and oriented to person, place, and time. Motor: No weakness. Gait: Gait normal. Psychiatric: Mood and Affect: Mood normal. Thought Content: Thought content normal. Judgment: Judgment normal. BP 109/75 Pulse 61 Resp 16 Ht 1.575 m (5' 2) Wt 71.2 kg (157 lb) SpO2 100% BMI 28.72 kg/m Lab Results Component Value Date WBC 5.1 10/14/2020 HGB 12.6 10/14/2020 HCT 36.4 10/14/2020 MCV 95 10/14/2020 PLT 181 10/14/2020 No lab exists for component: LABALBU No results found for: AFP No results found for: TSH Assessment/Plan Kwadwo Rodrigues is a 24 y.o. female with a PMH of adjustment disorder, asthma, tic disorder who presents to GI clinic today with hematochezia and rectal pain. No prior history of EGD or colonoscopy. Since her symptoms are progressing with her having softer stools with the help of Colace and no external hemorrhids present she will be scheudled for a colonoscopy. Anusol cream as well to help with her rectal pain. We discussed risk of procedure as well as possibility of internal hemorrhoid or fissure. Discussed importance of increased activity, increase water intake to at least 64 ounces, and she will start daily bowel regimen of MiraLAX and Metamucil. I will see patient in F/U post scope or sooner if problems arise. Diagnoses and all orders for this visit: Rectal pain - hydrocortisone (Anusol-HC) 25 mg suppository; Insert 1 suppository (25 mg) into the rectum 2 times a day. - Colonoscopy Screening; Average Risk Patient; Future Blood in stool - Referral to Gastroenterology - Colonoscopy Screening; Average Risk Patient; Future Encounter for screening colonoscopy - polyethylene glycol-electrolytes (Nulytely Lemon[place]) 420 gram solution; Take 4,000 mL by mouth 1 time for 1 dose. Cata Rodriguez APRN, CNP documented in this encounter [facility] Work Phone: 11-28-2024 Instructions SANDEE Calderon - 11/28/2024 8:00 AM EST Daily bowel regimen: -MiraLAX 1 capful daily in 8 ounces of any liquid. You can increase or decrease the dose as needed the goal is to have a daily BM and feel fully evacuated. -Metamucil 1 teaspoon daily in 8 ounces of water (Premium Blend) -Footstool or squatty potty during bowel movements -Adequate water throughout the day 64 oz -Walk 15 to 30 minutes daily to help promote GI motility -Follow-up post colonoscopy with me Anusol suppository for pain documented in this encounter [facility] Work Phone: 11-18-2024 Note HNO ID: [id number] Author: QUENTIN BE MD Service: ? Author Type: Physician Type: Progress Notes Filed: 11/18/2024 08:54 Note Text: Telephoto Installer offered: Patient accepts, visit chaperoned by Hortencia Bryson MA. Kwadwo Rodrigues is a 24 year old female who presents for problem visit to evaluate vulvovaginal itching transiently improved with monistat 7 and then returned externally that has improved with hydrocortisone. . 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 Asthma Left lateral knee pain 01/20/2014 Patellar tendinitis of right knee 01/20/2014 Unspecified asthma(493.90) dxed age 6 initially on [...] Paternal Grandfather lung Asthma Other gparents, cousin Social History Tobacco Use Smoking status: Never Smokeless tobacco: Never Vaping Use Vaping status: Never Used Substance Use Topics Alcohol use: Not Currently Comment: occasional Drug use: Never Current Outpatient Medications Medication Sig levonorgestrel (MIRENA) 21 mcg/24hr (up to 8 yrs) 52 mg IUD 1 Each by INTRAUTERINE route as directed. 25/iron fum/folic/dha (-1 ORAL) Take by mouth once daily. docusate sodium (COLACE ORAL) Take by mouth. acetaminophen (TYLENOL 8 HOUR ORAL) Take by mouth. No current facility-administered medications for this visit. Allergies As of Date: 11/18/2024 Allergen Noted Reaction LEVETIRACETAM 12/09/2020 Hives and Swelling SHELLFISH 03/27/2010 Hives SUMATRIPTAN 05/16/2024 Other: See Comments Fully Assessed 11/18/2024 REVIEW OF SYSTEMS Abdomen: No bloating, early satiety, indigestion, or increased flatulence. No abdominal pain, nausea, vomiting, diarrhea, or constipation. Bladder: No dysuria, gross hematuria, urinary frequency, urinary urgency, or incontinence. Breast: No breast lumps, nipple d/c, overlying skin changes, redness or skin retraction. Expanded ROS: N/A Allergies and current medication updated:Yes SENSITIVE EXAM: The sensitive examination was discussed with the Patient or Patient's Authorized Master Technician. As applicable, any other physician, advance practice provider, medical student, or other health professional student that will be observing or involved in the sensitive examination for educational or training purposes was discussed with the Patient or Authorized Master Technician. The Patient or Authorized Master Technician has agreed to proceed with the sensitive examination. (Sensitive examination includes inspection and/or palpation of the breasts, pelvis, prostate and anorectal regions). EXAM: BP 112/68 Wt 157 lb (71.2kg) LMP 09/30/2023 GENERAL: pleasant, female in no apparent distress PELVIC: external genitalia normal, normal Bartholin's glands, urethra, Commodore's glands, no vulvar lesions, no cervical lesions, good vaginal support, physiologic discharge present, normal appearing perineal body and perianal region BIMANUAL: uterus normal size, shape and consistency, no adnexal masses, and non-tender ASSESSMENT AND PLAN: Assessment AND Plan Vaginal itching Potential resolving douglas subsequent to antibiotic use. Cultures collected Quentin Be MD ftft~30m Quentin Be MD [facility] 11-18-2024 History of Present illness Narrative Telephoto Installer offered: Patient accepts, visit chaperoned by Hortencia Bryson MA. Kwadwo Rodrigues is a 24 year old female who presents for problem visit to evaluate vulvovaginal itching transiently improved with monistat 7 and then returned externally that has improved with hydrocortisone. . 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 Asthma Left lateral knee pain 01/20/2014 Patellar tendinitis of right knee 01/20/2014 Unspecified asthma(493.90) dxed age 6 initially on [...] Paternal Grandfather lung Asthma Other gparents, cousin Social History Tobacco Use Smoking status: Never Smokeless tobacco: Never Vaping Use Vaping status: Never Used Substance Use Topics Alcohol use: Not Currently Comment: occasional Drug use: Never Current Outpatient Medications Medication Sig levonorgestrel (MIRENA) 21 mcg/24hr (up to 8 yrs) 52 mg IUD 1 Each by INTRAUTERINE route as directed. 25/iron fum/folic/dha (-1 ORAL) Take by mouth once daily. docusate sodium (COLACE ORAL) Take by mouth. acetaminophen (TYLENOL 8 HOUR ORAL) Take by mouth. No current facility-administered medications for this visit. Allergies As of Date: 11/18/2024 Allergen Noted Reaction LEVETIRACETAM 12/09/2020 Hives and Swelling SHELLFISH 03/27/2010 Hives SUMATRIPTAN 05/16/2024 Other: See Comments Fully Assessed 11/18/2024 REVIEW OF SYSTEMS Abdomen: No bloating, early satiety, indigestion, or increased flatulence. No abdominal pain, nausea, vomiting, diarrhea, or constipation. Bladder: No dysuria, gross hematuria, urinary frequency, urinary urgency, or incontinence. Breast: No breast lumps, nipple d/c, overlying skin changes, redness or skin retraction. Expanded ROS: N/A Allergies and current medication updated:Yes SENSITIVE EXAM: The sensitive examination was discussed with the Patient or Patient's Authorized Master Technician. As applicable, any other physician, advance practice provider, medical student, or other health professional student that will be observing or involved in the sensitive examination for educational or training purposes was discussed with the Patient or Authorized Master Technician. The Patient or Authorized Master Technician has agreed to proceed with the sensitive examination. (Sensitive examination includes inspection and/or palpation of the breasts, pelvis, prostate and anorectal regions). EXAM: BP 112/68 Wt 157 lb (71.2kg) LMP 09/30/2023 GENERAL: pleasant, female in no apparent distress PELVIC: external genitalia normal, normal Bartholin's glands, urethra, Commodore's glands, no vulvar lesions, no cervical lesions, good vaginal support, physiologic discharge present, normal appearing perineal body and perianal region BIMANUAL: uterus normal size, shape and consistency, no adnexal masses, and non-tender ASSESSMENT AND PLAN: Assessment & Plan Vaginal itching Potential resolving douglas subsequent to antibiotic use. Cultures collected Quentin Be MD ftft~30m Quentin Be MD documented in this encounter [facility] 11-15-2024 Telephone encounter Note Patient notified and voiced understanding of below information and instructions. Cyndi Garcia RN [facility] 11-15-2024 Miscellaneous Notes Patient notified and voiced understanding of below information and instructions. Cyndi Garcia RN She may not have had a yeast infection. It could have been BV instead. The monistat may have masked the symptoms. Its also possible that she may be having a reaction to the monistat. Hydrocortisone cream is ok for itching. Sometime a cold compress will help the soreness. On 11/04/24- started 7 day tx for monistat. Completed and was okay for 3 days. Now started today with soreness in vaginal area/itching again. Normal vaginal discharge now. Made appt for Monday at 0800, but wanting to know what she should do for over the weekend if she begins to have worsening symptoms. Please advise. Viry Kennedy RN documented in this encounter [facility] 11-15-2024 Telephone encounter Note She may not have had a yeast infection. It could have been BV instead. The monistat may have masked the symptoms. Its also possible that she may be having a reaction to the monistat. Hydrocortisone cream is ok for itching. Sometime a cold compress will help the soreness. [facility] Work Phone: 11-15-2024 Telephone encounter Note On 11/04/24- started 7 day tx for monistat. Completed and was okay for 3 days. Now started today with soreness in vaginal area/itching again. Normal vaginal discharge now. Made appt for Monday at 0800, but wanting to know what she should do for over the weekend if she begins to have worsening symptoms. Please advise. Viry Kennedy RN [facility] 11-04-2024 Note HNO ID: [id number] Author: YESSY URIBE MD Service: ? Author Type: Physician Type: Progress Notes Filed: 11/04/2024 11:07 Note Text: The patient presents for requested ultrasound. Full report available in the Imaging tab in [employer]. Yessy Uribe MD [facility] 11-04-2024 History of Present illness Narrative The patient presents for requested ultrasound. Full report available in the Imaging tab in [employer]. Yessy Uribe MD documented in this encounter [facility] 10-24-2024 Telephone encounter Note Patient notified. Lisa Bernal RN [facility] 10-24-2024 Miscellaneous Notes Patient notified. Lisa Bernal RN Recommend Benefiber and using Miralax as well first. Can see GI if she would like and order placed since she is not established with a PCP - would probably take several months to see a PCP. If she does have a PCP that is not entered in chart would call them first if Benefiber and Miralax do not improve symptoms Patient calling regarding constipation. States she discussed this with SW at 08/29/24 appointment. Since then she has tried what provider told her to. She has increased fiber in diet, increased water intake, pear juice and stool softener. She has to take 3 of colace a day to have a tolerable bowel movement, but it is still painful each time. States provider told her if it continues she can place a referral for her to see a provider. Please advise. Patient is wanting a call back and not a mychart message. Lisa Bernal RN documented in this encounter [facility] 10-22-2024 Telephone encounter Note Recommend Benefiber and using Miralax as well first. Can see GI if she would like and order placed since she is not established with a PCP - would probably take several months to see a PCP. If she does have a PCP that is not entered in chart would call them first if Benefiber and Miralax do not improve symptoms [facility] 10-22-2024 Telephone encounter Note Patient calling regarding constipation. States she discussed this with SW at 08/29/24 appointment. Since then she has tried what provider told her to. She has increased fiber in diet, increased water intake, pear juice and stool softener. She has to take 3 of colace a day to have a tolerable bowel movement, but it is still painful each time. States provider told her if it continues she can place a referral for her to see a provider. Please advise. Patient is wanting a call back and not a mychart message. Lisa Bernal RN [facility] 10-03-2024 Note HNO ID: [id number] Author: MADDY CINTRON APRN.CHILDR[employer]ISTER Service: ? Author Type: Nurse Practitioner Type: Progress Notes Filed: 10/03/2024 11:53 Note Text: Telephoto Installer offered: Patient declines. Kwadwo Rodrigues presents today for IUD check. She had a Mirena placed on 08/29/2024. She has had bleeding and cramping since placement. Bleeding ranges from having to change a panty liner a few times a day to 2-3 pads per day. Has only had 1 day of no bleeding. REVIEW OF SYSTEMS: VALET ATTENDANT: + bleeding, cramping SENSITIVE EXAM: The sensitive examination was discussed with the Patient or Patient's Authorized Master Technician. As applicable, any other physician, advance practice provider, medical student, or other health professional student that will be observing or involved in the sensitive examination for educational or training purposes was discussed with the Patient or Authorized Master Technician. The Patient or Authorized Master Technician has agreed to proceed with the sensitive examination. (Sensitive examination includes inspection and/or palpation of the breasts, pelvis, prostate and anorectal regions). PHYSICAL EXAMINATION: BP 120/60 Wt 158 lb (71.7kg) LMP 09/30/2023 ABDOMEN:soft, non-tender, no masses, no hepatosplenomegaly, and no lymphadenopathy EXTERNAL GENITALIA: Normal genitalia and Bartholins, Urethra, Sken'e normal CERVIX: smooth, no lesions and IUD strings visualized. UTERUS: normal size, regular, non-tender, and freely mobile ADNEXA: negative for tenderness or masses IMPRESSION/PLAN: IUD correctly positioned. Follow up for annual exam or sooner if needed. ASSESSMENT/PLAN: 1. IUD check up - ICD9: V25.42, ICD10: Z30.431 - Exam reassuring for IUD placement - Recommend giving IUD more time since bleeding isn't heavy and no pain - To notify if using more than 1 pad/tampon an hour or pain occur - COMPLETE BLOOD COUNT - PELVIC US WHI - Patient comfortable with plan of care Maddy Cintron APRN.CHILDREN'S MINISTER Medical Decision Making: Problems: Low: Acute, uncomplicated illness or injury Data: Unique test(s) ordered: 2 Risk: Minimal: Minimal risk from testing/treatment Moderate: Drug management Medical Decision Making Level: 3 - Low [facility] 10-03-2024 History of Present illness Narrative Telephoto Installer offered: Patient declines. Kwadwo Rodrigues presents today for IUD check. She had a Mirena placed on 08/29/2024. She has had bleeding and cramping since placement. Bleeding ranges from having to change a panty liner a few times a day to 2-3 pads per day. Has only had 1 day of no bleeding. REVIEW OF SYSTEMS: VALET ATTENDANT: + bleeding, cramping SENSITIVE EXAM: The sensitive examination was discussed with the Patient or Patient's Authorized Master Technician. As applicable, any other physician, advance practice provider, medical student, or other health professional student that will be observing or involved in the sensitive examination for educational or training purposes was discussed with the Patient or Authorized Master Technician. The Patient or Authorized Master Technician has agreed to proceed with the sensitive examination. (Sensitive examination includes inspection and/or palpation of the breasts, pelvis, prostate and anorectal regions). PHYSICAL EXAMINATION: BP 120/60 Wt 158 lb (71.7kg) LMP 09/30/2023 ABDOMEN:soft, non-tender, no masses, no hepatosplenomegaly, and no lymphadenopathy EXTERNAL GENITALIA: Normal genitalia and Bartholins, Urethra, Sken'e normal CERVIX: smooth, no lesions and IUD strings visualized. UTERUS: normal size, regular, non-tender, and freely mobile ADNEXA: negative for tenderness or masses IMPRESSION/PLAN: IUD correctly positioned. Follow up for annual exam or sooner if needed. ASSESSMENT/PLAN: 1. IUD check up - ICD9: V25.42, ICD10: Z30.431 - Exam reassuring for IUD placement - Recommend giving IUD more time since bleeding isn't heavy and no pain - To notify if using more than 1 pad/tampon an hour or pain occur - COMPLETE BLOOD COUNT - PELVIC US WHI - Patient comfortable with plan of care Maddy Cintron APRN.CNP Medical Decision Making: Problems: Low: Acute, uncomplicated illness or injury Data: Unique test(s) ordered: 2 Risk: Minimal: Minimal risk from testing/treatment Moderate: Drug management Medical Decision Making Level: 3 - Low documented in this encounter [facility] 08-29-2024 Instructions Mirella Ferrer MA - 08/29/2024 11:26 AM EDT POST IUD INSTRUCTIONS You may have irregular bleeding during the first 3 months of use. You may have mild-severe cramping for the next 48 hours. You may use over the counter medication (Motrin, Tylenol) as needed. Your IUD must be removed or replaced based on the following table: IUD Type Removed or replaced within: Daisha 3 years Kyleena 5 years Mirena 8 years Liletta 8 years Paragard 10 years Call the office for signs/symptoms of infection such as severe cramping, fever, or unusual bleeding. Check for string placement as instructed by your doctor. If you have any additional questions, please contact the office. documented in this encounter [facility] 08-29-2024 Note HNO ID: [id number] Author: MALORIE BROWN MD Service: ? Author Type: Physician Type: Progress Notes Filed: 08/29/2024 12:50 Note Text: Telephoto Installer offered: Patient declines. Whitley presents today for IUD insertion for contraception. Patient's last menstrual period was 09/30/2023. GC/chlamydia: Negative on 11/27/2023 test: negative Side effects including irregular bleeding were discussed with the patient. The patient understands that it should be removed in 8 years or sooner if the patient desires a . IUD source: office provided IUD lot #: [id number] Exp date: 09/[address] [facility]: [id number] UNIVERSAL PROTOCOL / SAFETY CHECKLIST Procedure to be Performed: Mirena IUD Insertion Sign In: A Moment of CARE was completed. Personnel directly involved with the procedure wore the appropriate PPE (Personal Protective Equipment). Patient/Surrogate Stated/Verified: PATIENT VERIFIED(optional for EMERGENT procedures): Patient name, Date of , Relevant allergies, and The intended procedure Time Out Communication: Intended patient and procedure match the source documents. Consent documented and matches the intended procedure. Sign Out: SIGN OUT (optional for EMERGENT procedures): No specimen collected. All instruments, equipment, possible retained foreign bodies accounted for. Post-procedure follow-up management communicated and Plan of Care Visit completed when applicable. The cervix was prepped with betadine. The uterus sounded to 8 cm and the uterus is Anteverted.. Using sterile technique, the Mirena IUD was inserted without difficulty and the string was cut to 2 cm from the external os of the cervix. Patient tolerated procedure well. PLAN: Patient was advised to observe for signs and symptoms of infection including but not limited to fever, malodorous vaginal discharge and/or pain. The patient was told to check the string monthly for accurate placement. Bleeding expectations were reviewed. Follow up in one month. Malorie Brown DO [facility] 08-29-2024 History of Present illness Narrative Telephoto Installer offered: Patient declines. Kwadwo presents today for IUD insertion for contraception. Patient's last menstrual period was 09/30/2023. GC/chlamydia: Negative on 11/27/2023 test: negative Side effects including irregular bleeding were discussed with the patient. The patient understands that it should be removed in 8 years or sooner if the patient desires a . IUD source: office provided IUD lot #: [id number] Exp date: 09/[address] [facility]: [id number] UNIVERSAL PROTOCOL / SAFETY CHECKLIST Procedure to be Performed: Mirena IUD Insertion Sign In: A Moment of CARE was completed. Personnel directly involved with the procedure wore the appropriate PPE (Personal Protective Equipment). Patient/Surrogate Stated/Verified: PATIENT VERIFIED(optional for EMERGENT procedures): Patient name, Date of , Relevant allergies, and The intended procedure Time Out Communication: Intended patient and procedure match the source documents. Consent documented and matches the intended procedure. Sign Out: SIGN OUT (optional for EMERGENT procedures): No specimen collected. All instruments, equipment, possible retained foreign bodies accounted for. Post-procedure follow-up management communicated and Plan of Care Visit completed when applicable. The cervix was prepped with betadine. The uterus sounded to 8 cm and the uterus is Anteverted.. Using sterile technique, the Mirena IUD was inserted without difficulty and the string was cut to 2 cm from the external os of the cervix. Patient tolerated procedure well. PLAN: Patient was advised to observe for signs and symptoms of infection including but not limited to fever, malodorous vaginal discharge and/or pain. The patient was told to check the string monthly for accurate placement. Bleeding expectations were reviewed. Follow up in one month. Malorie Brown DO documented in this encounter [facility] 08-01-2024 Note HNO ID: [id number] Author: OCTAVIO BALBUENA MD Service: ? Author Type: Physician Type: Progress Notes Filed: 08/01/2024 13:26 Note Text: Telephoto Installer offered: Patient declines. VISIT Kwadwo Rodrigues is a 24 year old year old here for visit. Delivery Summary: 06/17/2024 ROS/ Recovery: Feeding: pumping problems: Seeing art consultant Menses since delivery: None Menstrual pattern prior to : Regular periods [place] since delivery: Not resumed Depression: denies symptoms of depression. OB Depression and Anxiety Screening- This Encounter (since 07/31/2024) Over the past 2 weeks have you felt down, depressed, or hopeless? Negative Over the past two weeks, have you felt little interest or pleasure in doing things?? Negative Feeling nervous, anxious or on edge 1-Several days Not being able to stop or control worrying 1-Several days Anxiety Pre-Screening Total (If >/= 3 additional questions will be reviewed) 2 Emotional support: Yes Bowel symptoms: Constipation, Negative for abdominal discomfort, blood in stools or black stools, and change in bowel habits Abdomen: N/A Bladder symptoms: No dysuria, gross hematuria, urinary frequency, urinary urgency, or incontinence Other issues: discuss control Last Pap: 2023 normal HPV: N/A PAST MEDICAL HISTORY Diagnosis Date Acute bronchiolitis due to respiratory syncytial virus (RSV) as baby hospitalized. Asthma Left lateral knee pain 01/20/2014 Patellar tendinitis of right knee 01/20/2014 Unspecified asthma(493.90) dxed age 6 initially on [...] Paternal Grandfather lung Asthma Other gparents, cousin Social History Tobacco Use Smoking status: Never Smokeless tobacco: Never Vaping Use Vaping status: Never Used Substance Use Topics Alcohol use: Not Currently Comment: occasional Drug use: Never PHYSICAL EXAMINATION: SENSITIVE EXAM: The sensitive examination was discussed with the Patient or Patient's Authorized Master Technician. As applicable, any other physician, advance practice provider, medical student, or other health professional student that will be observing or involved in the sensitive examination for educational or training purposes was discussed with the Patient or Authorized Master Technician. The Patient or Authorized Master Technician has agreed to proceed with the sensitive examination. (Sensitive examination includes inspection and/or palpation of the breasts, pelvis, prostate and anorectal regions). BP 104/70 Wt 154 lb 3.2 oz (69.9kg) LMP 09/30/2023 GENERAL: pleasant, female in no apparent distress HEENT: Normocephalic, atraumatic, mucus membranes moist, and no lesions NECK: Supple, full range of motion, no adenopathy, and thyroid normal DERMATOLOGY: Normal, without lesions, non-icteric, and non-hirsute BREAST: soft, non-tender, symmetric, no dominant mass, normal nipple-areolar complex, no lymphadenopathy, and no nipple discharge CHEST: Normal inspiratory effort ABDOMEN: soft, non-tender, and no masses. INCISION: N/A PELVIC: external genitalia normal, normal Bartholin's glands, urethra, Commodore's glands, no vulvar lesions, no cervical lesions, good vaginal support, physiologic discharge present, normal appearing perineal body and perianal region BIMANUAL: uterus normal size, shape and consistency, no adnexal masses, and non-tender NEURO: alert and oriented x3,exam grossly non-focal EXTREMITIES: normal ASSESSMENT AND PLAN: 24 year old status post with normal course. Contraception plan: norethindrone but also considering Mirena IUD. Follow up: RTC for annual exams and PRN Octavio Balbuena MD [facility] 08-01-2024 History of Present illness Narrative Telephoto Installer offered: Patient declines. VISIT Kwadwo Rodrigues is a 24 year old year old here for visit. Delivery Summary: 06/17/2024 ROS/ Recovery: Feeding: pumping problems: Seeing art consultant Menses since delivery: None Menstrual pattern prior to : Regular periods [place] since delivery: Not resumed Depression: denies symptoms of depression. OB Depression and Anxiety Screening- This Encounter (since 07/31/2024) Over the past 2 weeks have you felt down, depressed, or hopeless? Negative Over the past two weeks, have you felt little interest or pleasure in doing things? Negative Feeling nervous, anxious or on edge 1-Several days Not being able to stop or control worrying 1-Several days Anxiety Pre-Screening Total (If >/= 3 additional questions will be reviewed) 2 Emotional support: Yes Bowel symptoms: Constipation, Negative for abdominal discomfort, blood in stools or black stools, and change in bowel habits Abdomen: N/A Bladder symptoms: No dysuria, gross hematuria, urinary frequency, urinary urgency, or incontinence Other issues: discuss control Last Pap: 2023 normal HPV: N/A PAST MEDICAL HISTORY Diagnosis Date Acute bronchiolitis due to respiratory syncytial virus (RSV) as baby hospitalized. Asthma Left lateral knee pain 01/20/2014 Patellar tendinitis of right knee 01/20/2014 Unspecified asthma(493.90) dxed age 6 initially on [...] Paternal Grandfather lung Asthma Other gparents, cousin Social History Tobacco Use Smoking status: Never Smokeless tobacco: Never Vaping Use Vaping status: Never Used Substance Use Topics Alcohol use: Not Currently Comment: occasional Drug use: Never PHYSICAL EXAMINATION: SENSITIVE EXAM: The sensitive examination was discussed with the Patient or Patient's Authorized Master Technician. As applicable, any other physician, advance practice provider, medical student, or other health professional student that will be observing or involved in the sensitive examination for educational or training purposes was discussed with the Patient or Authorized Master Technician. The Patient or Authorized Master Technician has agreed to proceed with the sensitive examination. (Sensitive examination includes inspection and/or palpation of the breasts, pelvis, prostate and anorectal regions). BP 104/70 Wt 154 lb 3.2 oz (69.9kg) LMP 09/30/2023 GENERAL: pleasant, female in no apparent distress HEENT: Normocephalic, atraumatic, mucus membranes moist, and no lesions NECK: Supple, full range of motion, no adenopathy, and thyroid normal DERMATOLOGY: Normal, without lesions, non-icteric, and non-hirsute BREAST: soft, non-tender, symmetric, no dominant mass, normal nipple-areolar complex, no lymphadenopathy, and no nipple discharge CHEST: Normal inspiratory effort ABDOMEN: soft, non-tender, and no masses. INCISION: N/A PELVIC: external genitalia normal, normal Bartholin's glands, urethra, Commodore's glands, no vulvar lesions, no cervical lesions, good vaginal support, physiologic discharge present, normal appearing perineal body and perianal region BIMANUAL: uterus normal size, shape and consistency, no adnexal masses, and non-tender NEURO: alert and oriented x3,exam grossly non-focal EXTREMITIES: normal ASSESSMENT AND PLAN: 24 year old status post with normal course. Contraception plan: norethindrone but also considering Mirena IUD. Follow up: RTC for annual exams and PRN Octavio Balbuena MD documented in this encounter [facility] 06-21-2024 History of Present illness Narrative Telephoto Installer offered: Patient declines. EARLY BLOOD PRESSURE CHECK VISIT Kwadwo Rodrigues is a 24 year old here for her in person blood pressure check visit. Last hospital discharge date: Delivery Summary: 06/17/24 ROS: General: Denies any fever or chills Hypertension Screening: Headache? Yes. Was it successfully treated with Tylenol? Usually, thinks the headaches are from lack of sleep Visual Changes? No Epigastric Pain? No Increased Swelling? Yes Taking any BP medications at home? No Monitoring BP at home? Yes: Systolic Range: 130's, Diastolic Range: high 80's-90's Other issues: still having some loss of bladder control, wants to know if that is OK, vaginal discharge, odor Having back and abdominal aching. Discharge is red-pink to yellow. Bleeding is very light. No fevers or severe pain. No dysuria. Discharge Medications: ferrous sulfate (IRON ORAL) Take by mouth. MAGNESIUM ORAL Take by mouth. acetaminophen (TYLENOL 8 HOUR ORAL) Take by mouth. 25/iron fum/folic/dha (-1 ORAL) Take by mouth once daily. aspirin, enteric coated (ASPIRIN, ENTERIC COATED) 81 mg EC tablet Take 81 mg by mouth once daily. (Patient not taking: Reported on 06/21/2024) famotidine (PEPCID ORAL) Take by mouth as needed. (Patient not taking: Reported on 06/21/2024) ALLERGIES Allergen Reactions Levetiracetam Hives, Swelling Shellfish Hives Sumatriptan Other: See Comments Chest tightness and dizziness. HISTORY REVIEW PAST MEDICAL HISTORY as baby: Acute bronchiolitis due to respiratory syncytial virus (RSV) Comment: hospitalized. No date: Asthma 01/20/2014: Left lateral knee pain 01/20/2014: Patellar tendinitis of right knee dxed age 6: Unspecified asthma(493.90) Comment: initially on Singulair which caused [place]; PAST SURGICAL HISTORY 2020: KNEE SURGERY HX; Right No date: TOOTH EXTRACTION Comment: wisdom teeth PHYSICAL EXAMINATION: General: pleasant,female in no apparent distress, A&O x 3. Abdomen: soft, non-tender, no masses, and FF at umbilicus -4 and uterus non tender /Incision: N/A Lungs: normal respiratory effort Heart:: Deferred Extremities: no edema : Vaginal sutures intact and healing well. No evidence of infection at suture site. Cervix and vaginal tissue normal appearing with scant dark red blood present and no vaginal discharge. No cervical motion tenderness. Visit Vital Sign 06/21/24 1534 BP: 128/86 ASSESSMENT AND PLAN: 24 year old status post with course complicated by gestational hypertension BP Stable. Continue present plan. Follow up in 5 weeks for PP Visit. Labs ordered today N/A Normal visit and exam. Questions answered Malorie Brown DO documented in this encounter [facility] 06-18-2024 History of Present illness Narrative Patient delivered via at [facility] on 06/18/2024 per Malorie Brown D.O . See OB Outcome note. Viry Kennedy RN documented in this encounter [facility] 06-14-2024 History of Present illness Narrative NST SUMMARY PROVIDER ASSESSMENT AND INTERPRETATION Kwadwo Rodrigues is a 24 year old female, , who is at 36w6d with an ADRIANO of 07/06/2024, Date entered prior to episode creation dating method. Indications for NST: Gestational HTN Baseline: 140 Variability: Moderate Accelerations: Present 15 X 15 Decelerations: None Contractions: TOCO: None Interpretation: Reactive SIGNATURE: Octavio Balbuena MD documented in this encounter [facility] 06-14-2024 Instructions Hortencia Bryson MA - 06/14/2024 1:59 PM EDT SEQUENTIAL SCREENINGS The [facility] offers sequential screenings for women who are [...] It will require an appointment with our hvac/r service technician. This is not an ultrasound [...] the above symptoms, contact our office at [phone] and ask to speak with a nurse. After hours, you can call doctors registry at [phone] OR call [facility] at [phone] and ask to have the doctor computer information systems instructor paged. If you consider this an emergency, dial 9-1-1 or go to your nearest emergency department. NEED HELP? Are you dealing with a violent or abusive relationship? Are you a victim of rape or sexual assult? Call [facility] ([place]) 24 hour Crisis Hotline: 755.742.1492 or 000-124-8073. MANUAL Your Guide to a Healthy manual is now on-line. Visit [email or web address] [email or web address] to download your free copy documented in this encounter [facility] 06-12-2024 Telephone encounter Note Spoke with LALO and DEB. Patient to come in on Monday for NST and OB visit. Her induction is scheduled for Monday. Patient aware,. Gale Michel RN [facility] 06-12-2024 Miscellaneous Notes Spoke with LALO and DEB. Patient to come in on Monday for NST and OB visit. Her induction is scheduled for Monday. Patient aware,. Gale Michel RN LFTs normal Bile acids pending. Should be an IOL for GHTN at 37 weeks Induction papers faxed to l&d per Dr. Balbuena. Date of induction is pending the results of labs drawn on 06/11/2024. documented in this encounter [facility] 06-12-2024 Telephone encounter Note LFTs normal Bile acids pending. Should be an IOL for GHTN at 37 weeks [facility] Work Phone: 06-11-2024 Telephone encounter Note Induction papers faxed to l&d per Dr. Balbuena. Date of induction is pending the results of labs drawn on 06/11/2024. [facility] 06-11-2024 History of Present illness Narrative NST SUMMARY PROVIDER ASSESSMENT AND INTERPRETATION Kwadwo Rodrigues is a 24 year old female, , who is at 36w3d with an ADRIANO of 07/06/2024, Date entered prior to episode creation dating method. Indications for NST: Gestational HTN Baseline: 140 Variability: Moderate Accelerations: Present 15 X 15 Decelerations: Variable Contractions: TOCO: None Interpretation: Reactive SIGNATURE: Octavio Balbuena MD documented in this encounter [facility] 06-11-2024 Progress note Formatting of t his note might be different from the original. KJ - VB No. LOF No. CTXS Yes - irregular. Movement: present. Other c/o: itching of palms and soles Medication list reviewed. Physical Exam See Flow Sheet Gen: no accute distress, well appearing Abd: soft, nontender, gravid A/P 36w3d Estimated Date of Delivery: 07/06/24 Itching - check CMP & bile acids for possible cholestasis Gestational htn - BP normal today. Induction consent signed today. Plan to schedule at 37 weeks or sooner if evidence of cholestasis. Reactive NST PTL precautions reviewed, Kick counts reviewed. Octavio Balbuena MD [facility] 06-11-2024 Miscellaneous Notes KJ - VB No. LOF No. CTXS Yes - irregular. Movement: present. Other c/o: itching of palms and soles Medication list reviewed. Physical Exam See Flow Sheet Gen: no accute distress, well appearing Abd: soft, nontender, gravid A/P 36w3d Estimated Date of Delivery: 07/06/24 Itching - check CMP & bile acids for possible cholestasis Gestational htn - BP normal today. Induction consent signed today. Plan to schedule at 37 weeks or sooner if evidence of cholestasis. Reactive NST PTL precautions reviewed, Kick counts reviewed. Octavio Balbuena MD documented in this encounter [facility] 06-11-2024 Instructions Fanny Schumacher LPN - 06/11/2024 3:34 PM EDT SEQUENTIAL SCREENINGS The [facility] offers sequential screenings for women who are [...] It will require an appointment with our hvac/r service technician. This is not an ultrasound [...] the above symptoms, contact our office at [phone] and ask to speak with a nurse. After hours, you can call doctors registry at [phone] OR call [facility] at [phone] and ask to have the doctor computer information systems instructor paged. If you consider this an emergency, dial 8--3 or go to your nearest emergency department. NEED HELP? Are you dealing with a violent or abusive relationship? Are you a victim of rape or sexual assult? Call [facility] ([place]) 24 hour Crisis Hotline: 914.926.9358 or 017-991-7169. MANUAL Your Guide to a Healthy manual is now on-line. Visit [email or web address] to download your free copy documented in this encounter [facility] 06-11-2024 Telephone encounter Note Patient scheduled [facility] 06-11-2024 Miscellaneous Notes Patient scheduled documented in this encounter [facility] 06-10-2024 Note Indication Evaluation of growth, Evaluation of well-being History of gestational hypertension, Discrepancy between uterine size and clinical dates Impression REMOTE READ - Single, live, intrauterine . - The biometry is consistent with the assigned gestational dating. - The EFW is 2808 g, at the 43%. AC is at the 68%. - The amniotic fluid volume is normal amount with an MVP of 4 cm and an JOSE of 12.1 cm. - The placenta is anterior, fundal. - BPP 8/8. - No malformations visualized on a limited survey as detailed below. Recommendations Additional follow-up as clinically indicated. Maternal Assessment Height 157 cm Height (ft) 5 ft Height (in) 2 in Physical Exam Initial weight (lb) 147 lb Initial BMI 26.89 kg/m Maternal assessment other: 1 Para 0 Method Transabdominal ultrasound examination [place] . Number of fetuses: 1 Dating LMP on: 09/30/2023 GA by LMP 36 w + 2 d ADRIANO by LMP: 07/06/2024 GA by prior assessment 36 w + 2 d ADRIANO by prior assessment: 07/06/2024 Ultrasound examination on: 06/10/2024 GA by U/S based upon: AC, BPD, Femur, HC GA by U/S 35 w + 5 d ADRIANO by U/S: 07/10/2024 Assigned: based on stated ADRIANO, selected on 02/14/2024 Assigned GA 36 w + 2 d Assigned ADRIANO: 07/06/2024 General Evaluation Cardiac activity present. FHR 131 bpm. movements: present. Presentation: cephalic Placenta: Placental site: anterior, fundal Umbilical cord: Cord vessels: 3 vessel cord Amniotic fluid: Amount of AF: normal amount. MVP 4.0 cm. JOSE 12.1 cm. Q1 3.0 cm, Q2 4.0 cm, Q3 3.1 cm, Q4 1.9 cm Biophysical Profile 2: breathing movements 2: Gross body movements 2: tone 2: Amniotic fluid volume 06/06 Biophysical profile score Growth Overview Exam date GA BPD (mm) HC (mm) AC (mm) FL (mm) HL (mm) EFW (g) 02/14/2024 19w 4d 43.1 28% 165.4 38% 145 53% 30 54% 28.2 35% 295 39% 06/10/2024 36w 2d 88.1 40% 328.8 56% 325.9 68% 66.3 19% 2808 43% Biometry Standard BPD 88.1 mm 35w 4d 40% Hadlock OFD 117.1 mm -/- 68% Nicolaides HC 328.8 mm 36w 5d 56% Cathy AC 325.9 mm 36w 4d 68% Hadlock Femur 66.3 mm 33w 6d 19% Cathy EFW 2,808 g 36w 0d 43% Hadlock EFW (lb) 6 lb EFW (oz) 3 oz EFW by: Hadlock (HC-AC-FL) Extended [employer] Supervisor 6.5 mm Extremities / Bony Struc FL / HC 0.20 Other Structures FHR 131 bpm Anatomy Lateral ventricles: normal Cavum septi pellucidi: normal Cerebellum: normal Cisterna magna: normal 4-chamber view: normal RVOT view: normal LVOT view: normal 3-vessel view: normal Heart / Thorax Situs: situs solitus (normal) Diaphragm: normal Stomach: normal Kidneys: normal Bladder: normal sex: male Wants to know sex: yes Performed By: Cyndi Maria RDMS, RVT Read By: Heaven Mccartney M.D. [facility] 06-07-2024 Progress note Formatting of t his note might be different from the original. S: Kwadwo Rodrigues is a 24 year old female who presents at 07/06/2024, Date entered prior to episode creation for a routine visit. Denies headache, visual changes, chest pain, shortness of breath, vaginal bleeding, leakage of fluid, or dysuria. Feeling well, no complaints. Good movement, No contractions BPO at home 130-140s/90s O: See flow sheet Gen: No apparent distress Abd: Gravid, nontender Reactive NST with lots of movement. BPP on monday ASSESSMENT/PLAN: 1. 35 weeks gestation of - ICD9: V22.2, ICD10: Z3A.35 (primary diagnosis) - URINE OB DIP B/O - ROUTINE, GROUP B STREP PCR 2. Encounter for supervision of high risk in third trimester, antepartum - ICD9: V23.9, ICD10: O09.93 - URINE OB DIP B/O - ROUTINE, GROUP B STREP PCR 3. Gestational hypertension, third trimester - ICD9: 642.33, ICD10: O13.3 IOL after 37 weeks - URINE OB DIP B/O - ROUTINE, GROUP B STREP PCR Gale Son MD [facility] 06-07-2024 Miscellaneous Notes S: Kwadwo Rodrigues is a 24 year old female who presents at 07/06/2024, Date entered prior to episode creation for a routine visit. Denies headache, visual changes, chest pain, shortness of breath, vaginal bleeding, leakage of fluid, or dysuria. Feeling well, no complaints. Good movement, No contractions BPO at home 130-140s/90s O: See flow sheet Gen: No apparent distress Abd: Gravid, nontender Reactive NST with lots of movement. BPP on monday ASSESSMENT/PLAN: 1. 35 weeks gestation of - ICD9: V22.2, ICD10: Z3A.35 (primary diagnosis) - URINE OB DIP B/O - ROUTINE, GROUP B STREP PCR 2. Encounter for supervision of high risk in third trimester, antepartum - ICD9: V23.9, ICD10: O09.93 - URINE OB DIP B/O - ROUTINE, GROUP B STREP PCR 3. Gestational hypertension, third trimester - ICD9: 642.33, ICD10: O13.3 IOL after 37 weeks - URINE OB DIP B/O - ROUTINE, GROUP B STREP PCR Gale Son MD documented in this encounter [facility] 06-07-2024 History of Present illness Narrative NST SUMMARY PROVIDER ASSESSMENT AND INTERPRETATION Indications for NST: Gestational HTN Baseline: 140 Variability: Moderate Accelerations: Present 15 X 15 Decelerations: None Interpretation: Category I Lots of movement on NST SIGNATURE: Gale Son MD documented in this encounter [facility] 06-07-2024 Instructions Mirella Ferrer MA - 06/07/2024 1:52 PM EDT SEQUENTIAL SCREENINGS The [facility] offers sequential screenings for women who are [...] It will require an appointment with our hvac/r service technician. This is not an ultrasound [...] the above symptoms, contact our office at [phone] and ask to speak with a nurse. After hours, you can call [facility] at [phone] OR call [facility] at [phone] and ask to have the doctor computer information systems instructor paged. If you consider this an emergency, dial or go to your nearest emergency department. NEED HELP? Are you dealing with a violent or abusive relationship? Are you a victim of rape or sexual assult? Call [facility] ([place]) 24 hour Crisis Hotline: 443.489.5440 or 730-685-2309. MANUAL Your Guide to a Healthy manual is now on-line. Visit [email or web address] ancyGuide to download your free copy documented in this encounter [facility] 06-03-2024 Instructions Roseanne Rodriguez MA - 06/03/2024 11:09 AM EDT SEQUENTIAL SCREENINGS The [facility] offers sequential screenings for women who are [...] It will require an appointment with our hvac/r service technician. This is not an ultrasound [...] the above symptoms, contact our office at [phone] and ask to speak with a nurse. After hours, you can call doctors registry at [phone] OR call [facility] at [phone] and ask to have the doctor computer information systems instructor paged. If you consider this an emergency, dial 9-1-1 or go to your nearest emergency department. NEED HELP? Are you dealing with a violent or abusive relationship? Are you a victim of rape or sexual assult? Call [facility] ([place]) 24 hour Crisis Hotline: 340.748.3849 or 575-999-3197. MANUAL Your Guide to a Healthy manual is now on-line. Visit [email or web address] ancyGuide to download your free copy documented in this encounter [facility] 06-03-2024 History of Present illness Narrative NST SUMMARY PROVIDER ASSESSMENT AND INTERPRETATION Kwadwo Rodrigues is a 24 year old female, , who is at 35w2d with an ADRIANO of 07/06/2024, Date entered prior to episode creation dating method. Indications for NST: Gestational HTN Baseline: 135 Variability: Moderate Accelerations: Present 15 X 15 Decelerations: None Contractions: TOCO: None Interpretation: Reactive SIGNATURE: Aminah Sanchez APRN.CNM documented in this encounter [facility] 06-03-2024 Progress note Formatting of t his note might be different from the original. LUZ MARIA-NST Only. OB and NST scheduled on 06/07. Aminah Sanchez APRN.CNM [facility] 06-03-2024 Miscellaneous Notes LUZ MARIA-NST Only. OB and NST scheduled on 06/07. Aminah Sanchez APRN.CNM documented in this encounter [facility] 05-31-2024 Procedure note NST SUMMARY PROVIDER ASSESSMENT AND INTERPRETATION Indications for NST: Gestational HTN Baseline: 145 Variability: Moderate Accelerations: Present 15 X 15 Decelerations: None Interpretation: Reactive SIGNATURE: Maddy Cintron APRN.CHILDREN'S MINISTER [facility] 05-31-2024 Procedure note NST SUMMARY PROVIDER ASSESSMENT AND INTERPRETATION Indications for NST: Gestational HTN Baseline: 145 Variability: Moderate Accelerations: Present 15 X 15 Decelerations: None Interpretation: Reactive SIGNATURE: Maddy Cintron APRN.CHILDREN'S MINISTER documented in this encounter [facility] 05-31-2024 Progress note Formatting of t his note might be different from the original. EH - S: Kwadwo is a 24 year old female who presents at 34w6d for a routine visit. Feeling movement. Denies chest pain, shortness of breath, vaginal bleeding, leakage of fluid, or dysuria. O: See flow sheet Gen: No apparent distress Abd: Gravid, nontender, S ASSESSMENT/PLAN: 1. Encounter for supervision of high risk in third trimester, antepartum - ICD9: V23.9, ICD10: O09.93 (primary diagnosi 2. 34 weeks gestation of - ICD9: V22.2, ICD10: Z3A.34 - GBS next visit at 36 weeks 3. Gestational hypertension, third trimester - ICD9: 642.33, ICD10: O13.3 - BP stable - Recommend growth every 4 weeks - Twice weekly testing recommended, Growth/BPP ordered - NST reactive today - BP precautions and pre eclampsia precautions reviewed 4. Uterine size-date discrepancy, third trimester - ICD9: 649.63, ICD10: O26.843 - S- Growth next week 5. Persistent headaches - ICD9: 784.0, ICD10: R51.9 - DTR 3+ of lower extremities - Unrelieved with Tylenol/caffeine - States she does have visual changes with headache - Denies RUQ pain - Does have prior hx of migraines - Reviewed with Nick Stack CNM and Dr. Buck, providers computer information systems instructor. Patient has been evaluated in L+D 2x this week. Plan is to obtain labs today, twice weekly testing. To notify with worsening symptoms. PTL precautions and kick counts reviewed. RTO next week for BPP and NST with OB visit. Reviewed BP parameters. Maddy Cintron APRN.CNP [facility] 05-31-2024 Miscellaneous Notes EH - S: Kwadwo is a 24 year old female who presents at 34w6d for a routine visit. Feeling movement. Denies chest pain, shortness of breath, vaginal bleeding, leakage of fluid, or dysuria. O: See flow sheet Gen: No apparent distress Abd: Gravid, nontender, S<D ASSESSMENT/PLAN: 1. Encounter for supervision of high risk in third trimester, antepartum - ICD9: V23.9, ICD10: O09.93 (primary diagnosi 2. 34 weeks gestation of - ICD9: V22.2, ICD10: Z3A.34 - GBS next visit at 36 weeks 3. Gestational hypertension, third trimester - ICD9: 642.33, ICD10: O13.3 - BP stable - Recommend growth every 4 weeks - Twice weekly testing recommended, Growth/BPP ordered - NST reactive today - BP precautions and pre eclampsia precautions reviewed 4. Uterine size-date discrepancy, third trimester - ICD9: 649.63, ICD10: O26.843 - S<D - Growth next week 5. Persistent headaches - ICD9: 784.0, ICD10: R51.9 - DTR 3+ of lower extremities - Unrelieved with Tylenol/caffeine - States she does have visual changes with headache - Denies RUQ pain - Does have prior hx of migraines - Reviewed with Nick Stack CNM and Dr. Buck, providers computer information systems instructor. Patient has been evaluated in L+D 2x this week. Plan is to obtain labs today, twice weekly testing. To notify with worsening symptoms. PTL precautions and kick counts reviewed. RTO next week for BPP and NST with OB visit. Reviewed BP parameters. Maddy Cintron APRN.CNP documented in this encounter [facility] 05-31-2024 Instructions Cherise Patel MA - 05/31/2024 1:59 PM EDT SEQUENTIAL SCREENINGS The [facility] offers sequential screenings for women who are [...] It will require an appointment with our hvac/r service technician. This is not an ultrasound [...] the above symptoms, contact our office at [phone] and ask to speak with a nurse. After hours, you can call doctors registry at [phone] OR call [facility] at [phone] and ask to have the doctor computer information systems instructor paged. If you consider this an emergency, dial 9-1-1 or go to your nearest emergency department. NEED HELP? Are you dealing with a violent or abusive relationship? Are you a victim of rape or sexual assult? Call [facility] ([place]) 24 hour Crisis Hotline: 108.341.2186 or 487-248-6215. MANUAL Your Guide to a Healthy manual is now on-line. Visit [email or web address] to download your free copy documented in this encounter [facility] 05-29-2024 Telephone encounter Note 34w4d Patient calling with same symptoms as yesterday. CABA pain rate of 8-9, spots in vision, and dizziness. BP at home have been elevated. 161/94, 146/88, 154/95. Tylenol is not helping with CABA. Decreased FM. Patient is scheduled to have 2nd Celestone at [facility]. Spoke with CP. Patient was advised to go to L&D now. L&D notified. Patient to have BP monitored and PIH labs. will be driving patient there. Gale Michel RN [facility] 05-29-2024 Miscellaneous Notes 34w4d Patient calling with same symptoms as yesterday. CABA pain rate of 8-9, spots in vision, and dizziness. BP at home have been elevated. 161/94, 146/88, 154/95. Tylenol is not helping with CABA. Decreased FM. Patient is scheduled to have 2nd Celestone at [facility]. Spoke with CP. Patient was advised to go to L&D now. L&D notified. Patient to have BP monitored and PIH labs. will be driving patient there. Gale Michel RN documented in this encounter [facility] 05-28-2024 Telephone encounter Note 34w3d Patient calling c/o headache, vision changes, dizziness and decreased FM. Has been checking BP at home and highest was 152/96 today. Last BP check was slightly lower then that. Spoke to DM and she advised patient go to L&D. Patient and L&D both notified. Lisa Bernal RN [facility] 05-28-2024 Miscellaneous Notes 34w3d Patient calling c/o headache, vision changes, dizziness and decreased FM. Has been checking BP at home and highest was 152/96 today. Last BP check was slightly lower then that. Spoke to DM and she advised patient go to L&D. Patient and L&D both notified. Lisa Bernal, RN documented in this encounter [facility] 05-23-2024 History of Present illness Narrative NST SUMMARY PROVIDER ASSESSMENT AND INTERPRETATION Indications for NST: Gestational HTN Baseline: 130 Variability: Moderate Accelerations: Present 15 X 15 Decelerations: None Interpretation: Category I SIGNATURE: Gale Son MD [facility] BP: 127/84 122/79 118/81 116/70 113/874 108/72 Average: 117/77 documented in this encounter [facility] 05-23-2024 Progress note Formatting of t his note might be different from the original. S: Kwadwo Rodrigues is a 24 year old female who presents at 07/06/2024, Date entered prior to episode creation for a routine visit. Denies visual changes, chest pain, shortness of breath, vaginal bleeding, leakage of fluid, or dysuria. Feeling well, no complaints. Good movement, No contractions O: See flow sheet Gen: No apparent distress Abd: Gravid, nontender Intermittent CABA with a hx of migraines. Pre E labs negative last week. Neg protein today. Trued BP reading normal. Does get elevated BP at home. 130-140/90s. Given gestational age and CABA hx obtaining 24 hour urine ASSESSMENT/PLAN: 1. 33 weeks gestation of - ICD9: V22.2, ICD10: Z3A.33 (primary diagnosis) - URINE OB DIP B/O - PROTEIN, 24 HOUR URINE - CREATININE, 24 HOUR URINE - COMPREHENSIVE METABOLIC PANEL - COMPLETE BLOOD COUNT AND DIFFERENTIAL - URIC ACID 2. Encounter for supervision of normal first in third trimester - ICD9: V22.0, ICD10: Z34.03 - URINE OB DIP B/O 3. Gestational hypertension, third trimester - ICD9: 642.33, ICD10: O13.3 - URINE OB DIP B/O - PROTEIN, 24 HOUR URINE - CREATININE, 24 HOUR URINE - COMPREHENSIVE METABOLIC PANEL - COMPLETE BLOOD COUNT AND DIFFERENTIAL - URIC ACID Gale Son MD [facility] 05-23-2024 Miscellaneous Notes S: Kwadwo Rodrigues is a 24 year old female who presents at 07/06/2024, Date entered prior to episode creation for a routine visit. Denies visual changes, chest pain, shortness of breath, vaginal bleeding, leakage of fluid, or dysuria. Feeling well, no complaints. Good movement, No contractions O: See flow sheet Gen: No apparent distress Abd: Gravid, nontender Intermittent CABA with a hx of migraines. Pre E labs negative last week. Neg protein today. Trued BP reading normal. Does get elevated BP at home. 130-140/90s. Given gestational age and CABA hx obtaining 24 hour urine ASSESSMENT/PLAN: 1. 33 weeks gestation of - ICD9: V22.2, ICD10: Z3A.33 (primary diagnosis) - URINE OB DIP B/O - PROTEIN, 24 HOUR URINE - CREATININE, 24 HOUR URINE - COMPREHENSIVE METABOLIC PANEL - COMPLETE BLOOD COUNT AND DIFFERENTIAL - URIC ACID 2. Encounter for supervision of normal first in third trimester - ICD9: V22.0, ICD10: Z34.03 - URINE OB DIP B/O 3. Gestational hypertension, third trimester - ICD9: 642.33, ICD10: O13.3 - URINE OB DIP B/O - PROTEIN, 24 HOUR URINE - CREATININE, 24 HOUR URINE - COMPREHENSIVE METABOLIC PANEL - COMPLETE BLOOD COUNT AND DIFFERENTIAL - URIC ACID Gale Son MD documented in this encounter [facility] 05-23-2024 Instructions Mirella Ferrer MA - 05/23/2024 2:16 PM EDT SEQUENTIAL SCREENINGS The [facility] offers sequential screenings for women who are [...] It will require an appointment with our hvac/r service technician. This is not an ultrasound [...] the above symptoms, contact our office at [phone] and ask to speak with a nurse. After hours, you can call doctors registry at [phone] OR call [facility] at [phone] and ask to have the doctor computer information systems instructor paged. If you consider this an emergency, dial 9-1- or go to your nearest emergency department. NEED HELP? Are you dealing with a violent or abusive relationship? Are you a victim of rape or sexual assult? Call [facility] ([place]) 24 hour Crisis Hotline: 262.485.5035 or 430-345-9093. MANUAL Your Guide to a Healthy manual is now on-line. Visit [email or web address] ancyGuide to download your free copy documented in this encounter [facility] 05-22-2024 Telephone encounter Note SARAHI paperwork has been signed and patient has been notified. Patient will be picking it up this afternoon. Omar Orta MA [facility] 05-22-2024 Miscellaneous Notes SARAHI paperwork has been signed and patient has been notified. Patient will be picking it up this afternoon. Omar Orta MA [place] paperwork received and completed. Placed on providers desk for signature. Omar Orta MA documented in this encounter [facility] 05-22-2024 Telephone encounter Note [place] paperwork received and completed. Placed on providers desk for signature. Omar Orta MA [facility] 05-17-2024 Telephone encounter Note Ob patient is 32w6d Called c/o headache not relieved by tylenol and did have spots in vision earlier today that have since resolved, oincreased swelling in hands. Is c/o increased heartburn. Bp at home was 150/100. Baby has been active Discussed with Nick Stack and patient is to go to l&d for evaluation. Patient agreed. [facility] 05-17-2024 Miscellaneous Notes Ob patient is 32w6d Called c/o headache not relieved by tylenol and did have spots in vision earlier today that have since resolved, oincreased swelling in hands. Is c/o increased heartburn. Bp at home was 150/100. Baby has been active Discussed with Nick Stack and patient is to go to l&d for evaluation. Patient agreed. documented in this encounter [facility] 05-16-2024 Progress note Formatting of t his note might be different from the original. S: Kwadwo Rodrigues is a 24 year old female who presents at 07/06/2024, Date entered prior to episode creation for a routine visit. Denies headache, visual changes, chest pain, shortness of breath, vaginal bleeding, leakage of fluid, or dysuria. Good movement, No contractions. Having some frequency and is worried that she may have a UTI O: See flow sheet Gen: No apparent distress Abd: Gravid, nontender Seen in [facility] and [facility] L&D. Migraine but also elevated BP. Diagnosied with GHTN.. Labs were normal. Had a reactive to imitrex. But headache did resolve. Discussed weekly NSTs since diagnosis of GHTN. Has a BP cuff at home and will follow daily. Has decided to go on medical leave now as job is causing a lot stress and raising her BP. Note given today but will bring FMLA next week. ASSESSMENT/PLAN: 1. 32 weeks gestation of - ICD9: V22.2, ICD10: Z3A.32 (primary diagnosis) - URINE CULTURE 2. Encounter for supervision of normal first in third trimester - ICD9: V22.0, ICD10: Z34.03 - URINE CULTURE 3. Gestational hypertension, third trimester - ICD9: 642.33, ICD10: O13.3 - NON-STRESS TEST - URINE CULTURE 4. Urinary frequency - ICD9: 788.41, ICD10: R35.0 - URINE CULTURE Gale Son MD [facility] 05-16-2024 Miscellaneous Notes S: Kwadwo Rodrigues is a 24 year old female who presents at 07/06/2024, Date entered prior to episode creation for a routine visit. Denies headache, visual changes, chest pain, shortness of breath, vaginal bleeding, leakage of fluid, or dysuria. Good movement, No contractions. Having some frequency and is worried that she may have a UTI O: See flow sheet Gen: No apparent distress Abd: Gravid, nontender Seen in [facility] and [facility] L[facility]D. Migraine but also elevated BP. Diagnosied with GHTN.. Labs were normal. Had a reactive to imitrex. But headache did resolve. Discussed weekly NSTs since diagnosis of GHTN. Has a BP cuff at home and will follow daily. Has decided to go on medical leave now as job is causing a lot stress and raising her BP. Note given today but will bring FMLA next week. ASSESSMENT/PLAN: 1. 32 weeks gestation of - ICD9: V22.2, ICD10: Z3A.32 (primary diagnosis) - URINE CULTURE 2. Encounter for supervision of normal first in third trimester - ICD9: V22.0, ICD10: Z34.03 - URINE CULTURE 3. Gestational hypertension, third trimester - ICD9: 642.33, ICD10: O13.3 - NON-STRESS TEST - URINE CULTURE 4. Urinary frequency - ICD9: 788.41, ICD10: R35.0 - URINE CULTURE Gale Son MD documented in this encounter [facility] 05-16-2024 Instructions Mirella Ferrer MA - 05/16/2024 2:06 PM EDT SEQUENTIAL SCREENINGS The [facility] offers sequential screenings for women who are [...] It will require an appointment with our hvac/r service technician. This is not an ultrasound [...] the above symptoms, contact our office at [phone] and ask to speak with a nurse. After hours, you can call doctors registry at [phone] OR call [facility] at [phone] and ask to have the doctor computer information systems instructor paged. If you consider this an emergency, dial or go to your nearest emergency department. NEED HELP? Are you dealing with a violent or abusive relationship? Are you a victim of rape or sexual assult? Call [facility] ([place]) 24 hour Crisis Hotline: 447.756.3578 or 558-437-9189. MANUAL Your Guide to a Healthy manual is now on-line. Visit [email or web address] [email or web address] to download your free copy documented in this encounter [facility] 05-15-2024 Note HNO ID: [id number] Author: YESSY SALMERON DO Service: ? Author Type: Resident Type: Progress Notes Filed: 05/15/2024 04:17 Note Text: Patient called after leaving OB ED. She stated she started experiencing dizziness, numbness and tingling down both arms 20 minutes after leaving the OB ED. She also reports chest pressure that radiates down both arms in addition to jaw and neck pain. Denies changes in vision or weakness. Denies syncope. Denies contractions, leakage of fluid, VB, or decreased FM. Recommended she present to nearest ED ([place] [facility]) for evaluation. Stated symptoms are likely in reaction to Imitrex but recommended evaluation due to chest pain/pressure. Discussed with Dr. Tonia Salmeron DO PGY-2 [facility] 05-15-2024 History of Present illness Narrative Images from the original note were not included. Patient called after leaving OB ED. She stated she started experiencing dizziness, numbness and tingling down both arms 20 minutes after leaving the OB ED. She also reports chest pressure that radiates down both arms in addition to jaw and neck pain. Denies changes in vision or weakness. Denies syncope. Denies contractions, leakage of fluid, VB, or decreased FM. Recommended she present to nearest ED ([place] [facility]) for evaluation. Stated symptoms are likely in reaction to Imitrex but recommended evaluation due to chest pain/pressure. Discussed with Dr. Tonia Salmeron DO PGY-2 documented in this encounter [facility] 05-15-2024 Note HNO ID: [id number] Author: YESSY SALMERON DO Service: Obstetrics Author Type: Resident Type: Progress Notes Filed: 05/15/2024 03:00 Note Text: CABA not improved after Reglan, Excedrin. Will give imitrex and zofran and reevaluate. UPC, CBC, CMP without signs of preeclampsia. Dr. Jennings updated Update: Patient's headache is resolved after sumatriptan and zofran. Will D/C home. Return precautions discussed . Prior to discharge, the following Plan of care discussed with: Provider, RN, Patient. Discharge Vital signs: .BP 124/89 Pulse 86 Temp 36.4 ?C (97.5 ?F) (Temporal) Ht 157.5 cm (5' 2) Wt 77.1 kg (170 lb) LMP 09/30/2023 SpO2 100% BMI 31.09 kg/m? Lab Results: CBC: Recent Labs 05/15/24 0027 WBC 11.56* RBC 3.22* HB 11.0* HCT 31.5* PLT 178 MCV 97.8 MCH 34.2* MPV 11.4 CMP: Recent Labs 05/15/24 0027 NA 138 K 3.4* CHLOR 104 CO2 20* BUN 6* CREAT 0.60 GLUC 106* TPROT 6.1* CA 9.2 TBILI 0.2 ALKPHOS 128* ALT 12 AST 16 ANION 14 UPC 0.12 Follow-up: tomorrow with regular OBGYN Precautions: PreE precautions, labor, vaginal bleeding, decreased FM New or adjusted home medications: None Other recommendations/instructions: maintain adequate hydration Discussed with primary Ob Provider/Group: Dr. Kaelyn Salmeron DO PGY-2 [facility] 05-15-2024 Note HNO ID: [id number] Author: GALE JENNINGS MD Service: Nursing Author Type: Registered Nurse Type: Procedures Filed: 06/04/2024 22:27 Note Text: Attestation signed by Gale Jennings MD at 06/04/2024 10:27 PM OBSTETRICS MONITORING ASSESSMENT On 05/15/24, I interpreted the following NST: NST Interpretation: Reactive (05/14/242351 : Gale Jennings MD) FHR Category: 1 (05/15/2413 : Arabella Solano RN) Disposition: Continue Current Management (05/14/242351 : Gale Jennings MD) PROVIDER INTERPRETATION: Reactive SIGNATURE: Gale Jennings MD PATIENT NAME: Kwadwo Rodrigues DATE: June 04, 2024 TIME: 10:26 PM OBSTETRICS NST SUMMARY SERVICE DATE: May 15, 2024 The patient is a 24 year old female, , who is at 32w4d with an ADRIANO of 07/06/2024, Date entered prior to episode creation dating method. NST OBJECTIVE FINDINGS PER NURSE: Start Time: 2351 (05/14/242351 : Arabella Solano RN) Complete Time: 11 (05/14/242351 : Arabella Solano, GIL) Indications: (OB ED) (05/14/242351 : Arabella Solano, RN) Patient Reason For: to monitor baby (05/14/242351 : Arabella Solano, GIL) NST Explanation: Procedure Explained;Monitor Explained;Verbalizes Understanding (05/14/242351 : Arabella Solano RN) Acoustic Stimulator: No (05/14/242351 : Arabella Solano, RN) Interventions: (none) (05/14/242351 : Arabella Solano, GIL) MONITORING/ASSESSMENT: Baseline: 125 bpm (05/15/2413 : Arabella Solano RN) Variability: Moderate (6-25 bpm) (05/15/24 0014 : Arabella Solano RN) Accelerations: Present (05/15/24 0014 : Arabella Solano RN) Decelerations: Decelerations: None (05/15/24 0014 : Arabella Solano RN) Contractions: Not present (05/15/24 0014 : Arabella Solano RN) Frequency: 3-6 (05/15/24 0000 : Arabella Solano RN) Above information forwarded to Dr. Jennings (05/14/24 2352 : Arabella Solano RN) for final review and interpretation. SIGNATURE: Arabella Solano RN PATIENT NAME: Kwadwo Rodrigues DATE: May 15, 2024 TIME: 12:42 AM [facility] 05-14-2024 Note HNO ID: [id number] Author: GALE JENNINGS MD Service: Obstetrics Author Type: Resident Type: Progress Notes Filed: 06/04/2024 22:25 Note Text: Attestation signed by Gale Jennings MD at 06/04/2024 10:25 PM Attending Note On 05/14/2024, I evaluated the patient and personally participated in the rios components. I agree with the resident's findings and plan as documented and have discussed the case and management of the patient's care with the resident. Plan of care discussed with: Provider, RN, Patient. Signature: Gale Jennings MD Date: June 04, 2024 Time: 10:24 PM OBSTETRICS OB ED PROGRESS NOTE SERVICE DATE: May 14, 2024 SERVICE TIME: 11:22 PM Subjective Patient's stated reason for arrival: high BP and headache CHIEF COMPLAINT: High blood pressure and headache HISTORY OF THE PRESENT ILLNESS: The patient is a 24 year old female, , who is at 32w4d with an ADRIANO of 07/06/2024. Patient is here complaining of high blood pressure and a headache. At 5 PM today she had onset of a generalized headache which she describes as sharp and rates it a 8/10 in pain. She took Tylenol 1000 mg without improvement. She has a history of migraines and typically has symptomatic improvement with Tylenol. She also noticed white dots in her vision. 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 Two days ago she had onset of right sided sciatica and the back pain occasionally radiates to her right side. Denies fever, chills, dysuria, hematuria. Has tried heating pad, stretching, belt, and flexeril for the pain. Her has otherwise been uncomplicated.Good movement. Denies vaginal bleeding., Denies contractions. Denies leaking of fluid. Denies other visual changes, chest pain, shortness of breath, abdominal pain. She is [facility] patient and plans to deliver at [facility]. 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 PAST MEDICAL HISTORY Diagnosis Date Acute bronchiolitis due to respiratory syncytial virus (RSV) as baby hospitalized. Asthma Left lateral knee pain 01/20/2014 Patellar tendinitis of right knee 01/20/2014 Unspecified asthma(493.90) dxed age 6 initially on [...] Paternal Grandfather lung Asthma Other gparents, cousin OB History T0 L0 SAB0 IAB0 Ectopic0 Multiple0 Live Births0 REVIEW OF SYSTEMS: The remainder of the review of systems is negative. Objective LAST VITALS: Pulse: 86 BP: 124/89 Temp: 36.4 ?C (97.5 ?F) SpO2: 100 % Height: 157.5 cm (5' 2) Weight: 77.1 kg (170 lb) BMI: 31.09 PHYSICAL EXAM: General: WD, WN, comfortable Heart: RR, S1, S2 Lungs: clear to auscultation Abdomen: soft, nontender, no masses Uterus: soft, NT CERVICAL EXAM: Not applicable MONITORING/ASSESSMENT: Baseline 130 bpm. Moderate variability. Accelerations 15x15. No decelerations. No contractions. Ultrasound: N/A LABS Diagnostic tests reviewed for today's visit: Most recent labs and imaging results. Assessment/Plan 24 year old EGA:32w4d who presents with elevated blood pressure and a headache. Active Hospital Problems Diagnosis Date Noted Elevated BP without diagnosis of hypertension 05/14/2024 Overview Note: - Generalized CABA since 06/08 in severity. Similar to her migraines but did not improve with tylenol. - BP mild to high mild at home > highest 158 systolic. - Some spots in vision. No other PreE Sx - No obstetrical sx. Uncomplicated thus far. Sees [facility]. - Vitals > MR pressure. Otherwise WNL - FHR tracing category 1 and reactive - RRR, CTAB - Patient with potentially GHTN. Has not yet met criteria. Will obtain labs and treat headache to rule out PreE. - CMP, CBC, UPC pending. Will cycle BP every 15 minutes. - Reglan 5 mg and Excedrin for CABA. Patient does not have ride home, will defer Benadryl. Encourage po hydration. TEACHING PHYSICIAN NOTE OF PERSONAL INVOLVEMENT IN CARE: I have personally seen and examined the patient and performed the medical decision-making components. I have reviewed the medical student documentation and verified the findings in the note as written. Any additions or changes are noted in bold/italics. Signature: Theresa (more content not included)... [facility] 05-13-2024 Telephone encounter Note Left detailed message for patient to inform her of this and to call office if she has any further questions/concerns. Viry Kennedy RN [facility] 05-13-2024 Miscellaneous Notes Left detailed message for patient to inform her of this and to call office if she has any further questions/concerns. Viry Kennedy RN They are available OTC Is this something you need to write a prescription for? Gale Michel RN She can, but its not likely going to penetrate deep enough to help Pt notified. States not a fan of chiropractors and only wants that as her last option. Asking if she can use Lidocaine patches? Please advise. Viry Kennedy RN Left message for patient to call office. Gale Michel RN Yes. It sounds like sciatic pain. Chiropractor might be her best bet if she's tried everything else. 32w2d Patient calling with right lower back pain that began yesterday. Occasionally sharp, but typically an ache. Pain radiates to her buttocks and down her leg. Having some numbness and tingling with it. Questioning if this is sciatica pain. She has tried heat/ice, Tylenol, and Flexeril with no relief. Discussed stretches and possible chiropractor care. Denies VB, LOF, or urinary symptoms. Patient asking if this is sciatic pain, what she can try while working. It's worse when she is up and moving. Gale Michel RN documented in this encounter [facility] 05-13-2024 Telephone encounter Note They are available OTC [facility] 05-13-2024 Telephone encounter Note Is this something you need to write a prescription for? Gale Michel RN [facility] 05-13-2024 Telephone encounter Note She can, but its not likely going to penetrate deep enough to help [facility] 05-13-2024 Telephone encounter Note Pt notified. States not a fan of chiropractors and only wants that as her last option. Asking if she can use Lidocaine patches? Please advise. Viry Kennedy RN [facility] 05-13-2024 Telephone encounter Note Left message for patient to call office. Gale Michel RN [facility] 05-13-2024 Telephone encounter Note Yes. It sounds like sciatic pain. Chiropractor might be her best bet if she's tried everything else. [facility] 05-13-2024 Telephone encounter Note 32w2d Patient calling with right lower back pain that began yesterday. Occasionally sharp, but typically an ache. Pain radiates to her buttocks and down her leg. Having some numbness and tingling with it. Questioning if this is sciatica pain. She has tried heat/ice, Tylenol, and Flexeril with no relief. Discussed stretches and possible chiropractor care. Denies VB, LOF, or urinary symptoms. Patient asking if this is sciatic pain, what she can try while working. It's worse when she is up and moving. Gale Michel, RN [facility] 05-03-2024 Telephone encounter Note FMLA paperwork completed and scanned into EMR and filed in nurses station. Original form placed at front end java developer for pt to grape picker. Pt notified. Shaniqeu Lora LPN [facility] 05-03-2024 Miscellaneous Notes FMLA paperwork completed and scanned into EMR and filed in nurses station. Original form placed at front end java developer for pt to grape picker. Pt notified. Shanique Lora LPN documented in this encounter [facility] 05-03-2024 Progress note Formatting of t his note might be different from the original. S: Kwadwo Rodrigues is a 24 year old female who presents at 07/06/2024, Date entered prior to episode creation for a routine visit. Denies headache, visual changes, chest pain, shortness of breath, vaginal bleeding, leakage of fluid, or dysuria. Feeling well, no complaints. Good movement, No contractions. Tylenol and magnesium for migraines O: See flow sheet Gen: No apparent distress Abd: Gravid, nontender Random episode of dizziness. Occurred shortly after eat high carb meal. No tachycardia, no SOB. Encourage to track when it happens and what she is eating prior to the episodes. Gets a CABA after. ASSESSMENT/PLAN: 1. 30 weeks gestation of - ICD9: V22.2, ICD10: Z3A.30 (primary diagnosis) labor precautions 2. Encounter for supervision of normal first in third trimester - ICD9: V22.0, ICD10: Z34.03 Gale Son MD [facility] 05-03-2024 Miscellaneous Notes S: Kwadwo Rodrigues is a 24 year old female who presents at 07/06/2024, Date entered prior to episode creation for a routine visit. Denies headache, visual changes, chest pain, shortness of breath, vaginal bleeding, leakage of fluid, or dysuria. Feeling well, no complaints. Good movement, No contractions. Tylenol and magnesium for migraines O: See flow sheet Gen: No apparent distress Abd: Gravid, nontender Random episode of dizziness. Occurred shortly after eat high carb meal. No tachycardia, no SOB. Encourage to track when it happens and what she is eating prior to the episodes. Gets a CABA after. ASSESSMENT/PLAN: 1. 30 weeks gestation of - ICD9: V22.2, ICD10: Z3A.30 (primary diagnosis) labor precautions 2. Encounter for supervision of normal first in third trimester - ICD9: V22.0, ICD10: Z34.03 Gale Son MD documented in this encounter [facility] 05-03-2024 Instructions Hortencia Bryson MA - 05/03/2024 2:12 PM EDT SEQUENTIAL SCREENINGS The [facility] offers sequential screenings for women who are [...] It will require an appointment with our hvac/r service technician. This is not an ultrasound [...] the above symptoms, contact our office at [phone] and ask to speak with a nurse. After hours, you can call doctors registry at [phone] OR call [facility] at [phone] and ask to have the doctor computer information systems instructor paged. If you consider this an emergency, dial 9-1-5 or go to your nearest emergency department. NEED HELP? Are you dealing with a violent or abusive relationship? Are you a victim of rape or sexual assult? Call [facility] ([facility]) 24 hour Crisis Hotline: 711.700.8105 or 564-008-2052. MANUAL Your Guide to a Healthy manual is now on-line. Visit [email or web address] ancyGuide to download your free copy documented in this encounter [facility] 04-19-2024 History of Present illness Narrative Patient identified by name and date of . Kwadwo Jina Rodrigues presents today for a vaccination of Tdap. Patient denies an allergy to latex: yes Patient denies a severe (life-threatening) allergy to a previous dose of Tdap, DTP, DTaP, DT or Td vaccine. Yes Patient denies history of epilepsy or neurological problems: Yes Patient is afebrile and denies being moderately or severely ill: Yes Patient denies history of Guillain-Laredo Syndrome (a severe paralytic illness): Yes Tdap Adacel injection was given without incident. See immunizations for details of immunizations administered today. VIS sheet provided: Yes Provider Aminah Sanchez APRN CNM was present in office at time of injection. Omar Orta MA documented in this encounter [facility] 04-19-2024 Instructions Aminah Sanchez APRN.STIVEN - 04/19/2024 1:07 PM EDT COUNTING YOUR BABY'S MOVEMENTS Your Baby's regular movements are a sign of good health. Though babies may sleep for up to an hour, most of the time your baby is active and moving. On average, a healthy baby kicks or moves at least 10 times within a two-hour period. An easy way to check the health of your baby is to keep track of your baby's movements once a day (we call it kick counts). We think it is best to begin kick counts at 28 weeks of and continue once a day until your baby's . Please follow the directions below and record your baby's movements every day. Bring this Kick Count Record with you to all of your visits. How to count and record your baby's movements: Pick a time once a day to record your baby's movements. Your baby may be most active when you are at rest. Many women find after a meal to be the best time to record their baby's movements. Sit in a comfortable position and place your hands, palms down, on your baby. When you are ready to begin counting, look at the time. Lex the start time on the Kick Count Record. Count each time you feel your baby kick, move, roll, flutter, or swish. Continue counting until your baby has moved ten times. Lex the end time on the Kick Count Record. How many minutes did it take your baby to move ten times? Record this number in the box. If you do not count ten movements in two hours or less, call your health care provider right away for further instructions Day Date Day Date Day Date Start Start Start End End End Minutes to reach 10 kicks Minutes to reach 10 kicks Minutes to reach 10 kicks [facility] [address] [place] [address] [facility] [address] [place], [place] [address] [facility] [address] [place] [address] [facility] [address] [place] [address] [email or web address] [facility] [address] [place] [address] [facility] [address] [place] [place] [address] [email or web address] [address] [place] [address] [email or web address] [facility] [phone] [employer] Energygl[facility] centerActifis[facility] [address] [place] [address] [facility] [address] [address] [facility] [place] office also [phone] [email or web address]-[email or web address]/ [facility] [phone] [place] [address] [address] [place] [address] [facility] [employer] [facility], [facility] [address] [place] [address] [email or web address] [facility] [address] [place], [place] [id number] [email or web address] SIGNS AND SYMPTOMS OF LABOR 1. Contractions every 10 minutes or more often 2. Clear, pink, or brownish fluid (water) leaking from vagina 3. Feeling that baby is pushing down, pressure 4. Low, dull backache 5. Cramps that feel like a period 6. Cramps with or without diarrhea If you notice any of the above symptoms, contact our office at [phone] and ask to speak with a nurse. After hours, you can call doctors registry at [phone] OR call [facility] at [phone] and ask to have the doctor computer information systems instructor paged. If you consider this an emergency, dial 9-6 or go to your nearest emergency department. NEED HELP? Are you dealing with a violent or abusive relationship? Are you a victim of rape or sexual assult? Call [facility] ([facility]) 24 hour Crisis Hotline: 750.603.8067 or 386-019-7577. MANUAL Your Guide to a Healthy manual is now on-line. Visit [email or web address] ancyGuide to download your free copy documented in this encounter [facility] 04-19-2024 Miscellaneous Notes LUZ MARIA-S: Kwadwo Rodrigues is a 24 year old female who presents at 28w6d with ADRIANO:07/06/2024, Date entered prior to episode creation for a routine visit. Denies visual changes, chest pain, shortness of breath, vaginal bleeding, leakage of fluid, or dysuria. Feeling well, no complaints. Having some headaches/migraines. Ibupfrofen O: See flow sheet Gen: No apparent distress Abd: Gravid, nontender S=D, 22lb TWG ASSESSMENT/PLAN: 1. Encounter for supervision of normal first in second trimester - 1 hour GCT, CBC, and RPR today - TDAP today - LARC form reviewed and signed. Patient declines. - Depression screen negative - Opioid screen negative - plan form discussed and given to patient. Reviewed CBE and - Director Of Restaurant with [facility]. It's a boy, planning circumcision - PTL precautions and kick counts reviewed - RTO- 2 weeks or sooner if needed 2. 28 weeks gestation of 3. Rh negative state in antepartum period - Rh negative- Rhogam injection today Aminah Sanchez APRN.CNM documented in this encounter [facility] 04-19-2024 Progress note Formatting of t his note might be different from the original. LUZ MARIA-S: Kwadwo Rodrigues is a 24 year old female who presents at 28w6d with ADRIANO:07/06/2024, Date entered prior to episode creation for a routine visit. Denies visual changes, chest pain, shortness of breath, vaginal bleeding, leakage of fluid, or dysuria. Feeling well, no complaints. Having some headaches/migraines. Ibupfrofen O: See flow sheet Gen: No apparent distress Abd: Gravid, nontender S=D, 22lb TWG ASSESSMENT/PLAN: 1. Encounter for supervision of normal first in second trimester - 1 hour GCT, CBC, and RPR today - TDAP today - LARC form reviewed and signed. Patient declines. - Depression screen negative - Opioid screen negative - plan form discussed and given to patient. Reviewed CBE and - Director Of Restaurant with [facility]. It's a boy, planning circumcision - PTL precautions and kick counts reviewed - RTO- 2 weeks or sooner if needed 2. 28 weeks gestation of 3. Rh negative state in antepartum period - Rh negative- Rhogam injection today Aminah Sanchez APRN.CNM [facility] 04-12-2024 Note HNO ID: [id number] Author: NATASHA ART MD Service: Nursing Author Type: Physician Type: Procedures Filed: 04/12/2024 13:49 Note Text: OBSTETRICS NST SUMMARY SERVICE DATE: April 12, 2024 The patient is a 24 year old female, , who is at 27w6d with an ADRIANO of 07/06/2024, Date entered prior to episode creation dating method. NST OBJECTIVE FINDINGS PER NURSE: Start Time: 0010 (04/12/24 0030 : Lazara Tam RN) Complete Time: 003 (04/12/24 0030 : Lazara Tam RN) Indications: Other: Comment (abd pain) (04/12/2429 : Lazara Tam RN) Patient Reason For: monitor baby (04/12/2429 : Lazara Tam RN) NST Explanation: Procedure Explained;Monitor Explained;Verbalizes Understanding (04/12/2429 : Lazara Tam RN) Acoustic Stimulator: No (04/12/2429 : Lazara Tam RN) Interventions: MONITORING/ASSESSMENT: Baseline: 140 bpm (04/12/2429 : Lazara Tam RN) Variability: Moderate (6-25 bpm) (04/12/2429 : Lazara Tam RN) Accelerations: Present (04/12/2429 : Lazara Tam RN) Decelerations: Decelerations: None (04/12/2429 : Lazara Tam RN) Contractions: Not present (04/12/2429 : Lazara Tam RN) Frequency: Above information forwarded to (04/12/2429 : Lazara Tam RN) for final review and interpretation. SIGNATURE: Lazara Tam RN PATIENT NAME: Kwadwo Rodrigues DATE: April 12, 2024 TIME: 12:48 AM PROVIDER INTERPRETATION: Reactive SIGNATURE: Natasha Art MD DATE: April 12, 2024 TIME: 1:49 PM [facility] 04-12-2024 Note HNO ID: [id number] Author: NATASHA ART MD Service: Obstetrics Author Type: Physician Type: Progress Notes Filed: 04/12/2024 13:51 Note Text: OBSTETRICS OB ED PROGRESS NOTE SERVICE DATE: April 12, 2024 SERVICE TIME: 12:27 AM Subjective Patient's stated reason for arrival: CHIEF COMPLAINT: R sided lower back pain that wraps around the R hip and groin as well as abdominal tightness HISTORY OF THE PRESENT ILLNESS: The patient is a 24 year old female, , who is at 27w6d with an ADRIANO of 07/06/2024, Date entered prior to episode creation dating method. Good movement. Patient reports R sided lower back pain that wraps around the R hip and groin as well as abdominal tightness. 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 She stated that the back and groin pain feels similar to the prior kidney stone she had earlier this , but the R sided abdominal tightness is what concerned her and brought her to the ED. She states she tok Tylenol 1,000mg earlier; unsure exact time but within the last 6 hours. She states that she has blood in her urine and frequent UTI's. She notes that her urine has been cloudy lately, but she is not having any urinary symptoms at this time. She wants to make sure the baby is ok and she doesn't have a kidney stone. PAST MEDICAL HISTORY Diagnosis Date Acute bronchiolitis due to respiratory syncytial virus (RSV) as baby hospitalized. Asthma Left lateral knee pain 01/20/2014 Patellar tendinitis of right knee 01/20/2014 Unspecified asthma(493.90) dxed age 6 initially on [...] Paternal Grandfather lung Asthma Other gparents, cousin OB History T0 L0 SAB0 IAB0 Ectopic0 Multiple0 Live Births0 REVIEW OF SYSTEMS: GENERAL: SEE HPI RESPIRATORY: See HPI CARDIOVASCULAR: See HPI GI: See HPI : SEE HPI VALET ATTENDANT: SEE HPI MUSCULOSKELETAL: See HPI NEURO: SEE HPI Objective LAST VITALS: Pulse: 88 BP: 122/87 Resp: 18 Temp: 36.6 ?C (97.9 ?F) PHYSICAL EXAM: General: WD, WN Heart: RR, S1, S2 Lungs: clear to auscultation Abdomen: soft, R sided abd tenderness to palpation, gravid Extremities: no edema MSK: R sided perispinal tenderness to palpation in the lumbar region. R hip tenderness to palpation. No CVA tenderness. CERVICAL EXAM: Not applicable MONITORING/ASSESSMENT: testing reassuring - baseline of 150 with moderate variability and accelerations and without decelerations. No contractions noted. Ultrasound: N/A LABS Diagnostic tests reviewed for today's visit: Most recent labs and imaging results. Assessment/Plan 24 year old EGA:27w6d. Presenting for R sided lumbar back pain that continues into the R hip and groin area and R abdominal tightness. 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 - ddx includes and is not limited to MSK origin (including round ligament pain) vs nephrolithiasis vs UTI - cannot give Tylenol because patient took 1,000mg at an unknown time possibly within the last 6 hours - declined flexeril because it makes her sleepy and she has some at home to take - udip positive for trace protein - monitoring reassuring; see above note for details - patient questions answered and return precautions given - patient discharged in stable condition Acute right-sided low back pain without sciatica 04/12/2024 Overview Note: - see abdominal pain during in second trimester for today's OB ED course Plan of care discussed with: Provider, RN, Patient. Dr. Fregoso and Dr. Art SIGNATURE: Lazara Moran MD PATIENT NAME: Kwadwo Rodrigues DATE: April 12, 2024 TIME: 12:27 AM PAGER/CONTACT #: Attending Note I evaluated the patient and personally participated in the rios components. I agree with the resident's findings and plan as documented and have discussed the case and management of the patient's care with the resident. No evidence of labor. Musculoskeletal nature reviewed. OK to work. OK for tylenol and muscle relaxer as needed Signature: Natasha Art MD Date: 04/12/2024 Time: 1:50 PM [facility] 04-02-2024 Telephone encounter Note Order signed and faxed. Lisa Bernal RN [facility] 04-02-2024 Miscellaneous Notes Order signed and faxed. Lisa Bernal RN Received breast pump RX from [employer]. To ELVIRA to sign. Gale Michel, RN documented in this encounter [facility] 03-28-2024 Telephone encounter Note Received breast pump RX from [employer]. To ELVIRA to sign. Gale Michel, RN [facility] 03-22-2024 Telephone encounter Note FMLA completed, copy scanned into EMR and filed in nurses station. Original placed at front end java developer and pt notified that it is ready for grape picker. Shanique Lora LPN' [facility] 03-22-2024 Miscellaneous Notes FMLA completed, copy scanned into EMR and filed in nurses station. Original placed at front end java developer and pt notified that it is ready for grape picker. Shanique Lora LPN' FMLA paperwork completed and placed on providers desk for signature. Shanique Lora LPN documented in this encounter [facility] 03-22-2024 Telephone encounter Note FMKASANDRA paperwork completed and placed on providers desk for signature. Shanique Lora LPN [facility] 03-21-2024 Progress note Formatting of t his note might be different from the original. ELVIRA - VB No. LOF No. CTXS No. Movement: present. Other c/o: she reports groin bumps that she is putting neosporin ointment on. Medication list reviewed. Physical Exam See Flow Sheet Gen: no accute distress, well appearing Abd: soft, nontender, gravid : external genitalia: normal, small lump (3-4mm) c/w folliculitis A/P 24w5d Estimated Date of Delivery: 07/06/24 Labs: 28 week labs ordered RH negative Folliculitis - advised on shaving hygiene & warm compresses FM & PTL precautions reviewed. Octavio Balbuena MD [facility] 03-21-2024 Miscellaneous Notes KJ - VB No. LOF No. CTXS No. Movement: present. Other c/o: she reports groin bumps that she is putting neosporin ointment on. Medication list reviewed. Physical Exam See Flow Sheet Gen: no accute distress, well appearing Abd: soft, nontender, gravid : external genitalia: normal, small lump (3-4mm) c/w folliculitis A/P 24w5d Estimated Date of Delivery: 07/06/24 Labs: 28 week labs ordered RH negative Folliculitis - advised on shaving hygiene & warm compresses FM & PTL precautions reviewed. Octavio Balbuena MD documented in this encounter [facility] 03-21-2024 Instructions Hortencia Bryson MA - 03/21/2024 1:10 PM EDT SEQUENTIAL SCREENINGS The [facility] offers sequential screenings for women who are [...] It will require an appointment with our hvac/r service technician. This is not an ultrasound [...] the above symptoms, contact our office at [phone] and ask to speak with a nurse. After hours, you can call [facility] at [phone] OR call [facility] at [phone] and ask to have the doctor computer information systems instructor paged. If you consider this an emergency, dial 6--2 or go to your nearest emergency department. NEED HELP? Are you dealing with a violent or abusive relationship? Are you a victim of rape or sexual assult? Call [facility] ([place]) 24 hour Crisis Hotline: 679.317.9617 or 952-835-9668. MANUAL Your Guide to a Healthy manual is now on-line. Visit [email or web address] [email or web address] to download your free copy documented in this encounter [facility] 02-23-2024 Telephone encounter Note I apologize for the delay. Vaccination through health department is an option but per MFM depends on which vaccine is available. I will send the patient some information [facility] Work Phone: 02-23-2024 Miscellaneous Notes I apologize for the delay. Vaccination through health department is an option but per MFM depends on which vaccine is available. I will send the patient some information Patient calling back asking if we have any information for her. Cyndi Garcia RN I have contacted [facility] about recommendations. SHould have a response tomorrow. 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 Patient states that she was wearing a regular mask and that the same mask was worn her entire shift and touched when she would remove it and put it back on. Patient states that she called the health department and they could offer a vaccine which could still be given after a expose that could make symptoms more mild. Patient asking if the vaccine is safe during ? Patient also asking if any risks to her with exposure? documented in this encounter [facility] 02-23-2024 Telephone encounter Note Patient calling back asking if we have any information for her. Cyndi Garcia RN [facility] 02-22-2024 Telephone encounter Note I have contacted [facility] about recommendations. SHould have a response tomorrow. 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 Patient states that she was wearing a regular mask and that the same mask was worn her entire shift and touched when she would remove it and put it back on. Patient states that she called the health department and they could offer a vaccine which could still be given after a expose that could make symptoms more mild. Patient asking if the vaccine is safe during ? Patient also asking if any risks to her with exposure? [facility] 02-14-2024 Miscellaneous Notes VB No. LOF No. CTXS No. Movement: some but light. Other c/o: No. Did pass stone at home. Has had no further stones or pain. Anatomy ultrasound completed today Medication list reviewed. Physical Exam See Flow Sheet Gen: no accute distress, well appearing A/P 19w4d Estimated Date of Delivery: 07/06/24 Stay hydrated F/u 4 weeks. GCT at 28 weeks. Gale Son M.D. documented in this encounter [facility] 02-14-2024 Instructions Cherise Patel, Sawyer - 02/14/2024 2:14 PM EDT SEQUENTIAL SCREENINGS The [facility] offers sequential screenings for women who are [...] It will require an appointment with our hvac/r service technician. This is not an ultrasound [...] the above symptoms, contact our office at [phone] and ask to speak with a nurse. After hours, you can call [employer] [facility] at [phone] OR call [facility] at [phone] and ask to have the doctor computer information systems instructor paged. If you consider this an emergency, dial 9--1 or go to your nearest emergency department. NEED HELP? Are you dealing with a violent or abusive relationship? Are you a victim of rape or sexual assult? Call [facility] ([place]) 24 hour Crisis Hotline: 130.677.5214 or 747-438-2508. MANUAL Your Guide to a Healthy manual is now on-line. Visit [email or web address] [email or web address] to download your free copy documented in this encounter [facility] 2024 Note HNO ID: [id number] Author: WEI DRIVER MD Service: Obstetrics Author Type: Resident Type: Progress Notes Filed: 01/18/2024 02:41 Note Text: Attestation signed by Nick Ríos MD at 01/18/2024 3:17 AM MATILDE Attending Note I personally saw/examined the patient on 01/18/2024 I evaluated the patient and personally participated in the rios components. I agree with the resident's findings and plan as documented and have discussed the case and management of the patient's care with the resident. Pt feeling better after IVF and zofran. Did not get flexeril due to wrong pharmacy previously. Also with some GERD. Will send Rx pepcid, flexeril (back pain), bowel regimen. Signature: Nick Ríos MD Date: 01/18/2024 Time: 3:16 AM OBSTETRICS OB ED PROGRESS NOTE SERVICE DATE: 2024 SERVICE TIME: 11:52 PM Subjective Patient's stated reason for arrival: back pain, vomiting, not keeping anything down, abd cramping, recent kidney stones CHIEF COMPLAINT: Nausea/vomiting and flank pain HISTORY OF THE PRESENT ILLNESS: The patient is a 23 year old female, , who is at 15w5d with an ADRIANO of 07/06/2024. Patient's last menstrual period was 09/30/2023. has been confirmed by ultrasound. Patient complaining of nausea/vomiting and flank pain . Patient denies vaginal bleeding, denies vaginal discharge, denies leaking of fluid. Patient was seen in our OB ED on 01/12 for abdominal pain radiating to her right flank. She also had associated nausea and vomiting. UA was notable for 3+ blood and she was started on Keflex for 5 days. Urine culture was negative. Renal US at that time was normal, no hydronephrosis was noted. Her pain improved with 500mg Tylenol and 10mg Flexeril. She was discharged home with strict return precautions. Upon evaluation today, the patient reported nausea and vomiting that started around 11am. She reported vomiting at least 4 times, and only managed to eat a couple zara crackers and a few sips of water. No blood noted in her vomit. Patient reported taking Zofran once around 6:45pm and vomited shortly after so was unsure if she got it into her system. She states she takes a vitamin but denies B6 and Unisom use. No sick contacts at home. No nausea and vomiting episodes prior to kidney stone but has had nausea since intermittently. Endorses recent constipation and acid reflux. Denies fevers, chills, lightheadedness, SOB, chest pain, dysuria, vaginal bleeding, and leakage of fluids. Patient also endorses bilateral back pain, worse on her right side, that has been present since the start of her but it worsened with the kidney stone last week. Pain now 3/10 (was 10/10 during that ED visit). Since her discharge on 01/12, she has been straining her urine and noticed 3 kidney stones. She endorses a history of UTI prior to her . PAST MEDICAL HISTORY Diagnosis Date Acute bronchiolitis due to respiratory syncytial virus (RSV) as baby hospitalized. Asthma Left lateral knee pain 01/20/2014 Patellar tendinitis of right knee 01/20/2014 Unspecified asthma(493.90) dxed age 6 initially on [...] Paternal Grandfather lung Asthma Other gparents, cousin OB History T0 L0 SAB0 IAB0 Ectopic0 Multiple0 Live Births0 REVIEW OF SYSTEMS: PAIN ASSESSMENT: Bilateral flank pain, worse on right side; no pain elsewhere GENERAL: negative for malaise, significant weight loss, fever RESPIRATORY: Negative for Dyspnea, Wheezing, Shortness of breath CARDIOVASCULAR: Negative Chest pain GI: Positive for constipation, heart burn, nausea, vomiting : No history of dysuria, frequency or incontinence VALET ATTENDANT: Negative for abnormal vaginal bleeding, abnormal vaginal discharge Objective LAST VITALS: Pulse: 90 BP: 122/75 Resp: 18 Temp: 37.1 ?C (98.8 ?F) SpO2: 100 % Height: 157.5 cm (5' 2) Weight: 66.7 kg (147 lb) BMI: 26.89 PHYSICAL EXAM: General: WD, WN, comfortable Heart: RR, S1, S2 Lungs: clear to auscultation Abdomen: nontender MSK: Bilateral low back pain on palpation, worse on right. No CVA tenderness b/l. FHR: 160 Diagnostic tests reviewed for today's visit: Most recent labs and imaging results. Assessment/Plan 23 year old EGA:15w5d presenting for naus (more content not included)... [facility] 01-15-2024 Miscellaneous Notes Images from the original note were not included. Patient seen in OB ED on 01/12 for flank pain and urine culture was sent to rule out UTI. Urine culture results reviewed and with normal brody. Resident call patient to review and discuss that antibiotics not indicated. She verbalized understanding. Ana Willis DO Obstetrics and Gynecology PGY-3 documented in this encounter [facility] 01-13-2024 Note HNO ID: [id number] Author: NATASHA ART MD Service: Obstetrics Author Type: Resident Type: Progress Notes Filed: 01/14/2024 19:02 Note Text: Attestation signed by Natasha Art MD at 01/14/2024 7:02 PM Attending Note I evaluated the patient and personally participated in the rios components. I agree with the resident's findings and plan as documented and have discussed the case and management of the patient's care with the resident. Most likely Dx stone, no history, check imaging. Send urine culture. Pain mgmt Patient seen with resident on 01/13/24 Signature: Natasha Art MD Date: 01/14/2024 Time: 7:01 PM OBSTETRICS OB ED PROGRESS NOTE Delayed entry due to patient care SERVICE DATE: January 13, 2024 SERVICE TIME: 11:20 AM Subjective Patient's stated reason for arrival: abdominal pain radiating to right side and back CHIEF COMPLAINT: Abdominal pain HISTORY OF THE PRESENT ILLNESS: The patient is a 23 year old female, , who is at 15w1d with an ADRIANO of 07/06/2024, Date entered prior to episode creation dating method. Patient's last menstrual period was 09/30/2023. has been confirmed by ultrasound. Patient complaining of abdominal pain radiating to her right flank. Patient states that she started feeling this pain last night starting in right lower quadrant. It was intermittent at that time with a 10/10 pain at its worst. The patient went to the [facility] ED at that time where she received a workup and was told that the doctors could not find a cause for her pain. She also obtained an urinalysis that showed 50 of occult blood; although the patient was told that the urine sample was contaminated. The pain subsided when she left the outside ED and the patient was able to sleep overnight. However, the patient woke up this morning in severe pain at 10/10 from the right lower quadrant to the right flank. She states that the pain is still intermittent but only goes down to an 8/10 at its best. She took 500mg of Tylenol this morning with minimal relief. She also started feeling nauseous this morning and had one episode of emesis. She has not taken any medication for this nausea. The patient does have a history of UTIs outside of although denies any dysuria or hematuria at this time. Patient denies vaginal bleeding, denies vaginal discharge, denies leaking of fluid. PAST MEDICAL HISTORY Diagnosis Date Acute bronchiolitis due to respiratory syncytial virus (RSV) as baby hospitalized. Asthma Left lateral knee pain 01/20/2014 Patellar tendinitis of right knee 01/20/2014 Unspecified asthma(493.90) dxed age 6 initially on Singulair which caused Caba; PAST SURGICAL HISTORY Procedure Laterality Date KNEE SURGERY HX Right 2020 TOOTH EXTRACTION wisdom teeth OB History T0 L0 SAB0 IAB0 Ectopic0 Multiple0 Live Births0 REVIEW OF SYSTEMS: The remainder of the review of systems is negative. Objective LAST VITALS: Pulse: 89 BP: 140/79 Resp: 18 Temp: 36.5 ?C (97.7 ?F) SpO2: 100 % Height: 157.5 cm (5' 2) Weight: 66.7 kg (147 lb) BMI: 26.89 PHYSICAL EXAM: General: WD, WN Heart: RR Lungs: normal pulmonary exam Abdomen: soft, mildly tender to palpation in RLQ, no rebound or guarding, mild right CVA tenderness, no left CVA tenderness CERVICAL EXAM: Not applicable ASSESSMENT: heart rate present: Mode: Doppler (01/13/24 1130 : Clair Mitchell RN) Doppler/Fetoscope Rate: 147 bpm (01/13/24 1130 : Clair Mitchell RN) Ultrasound: N/A LABS ABO/RH: RH negative Diagnostic tests reviewed for today's visit: Most recent labs and imaging results. Assessment/Plan 23 year old EGA:15w1d. Presents to the MATILDE for abdominal and right flank pain. Active Hospital Problems Diagnosis Date Noted Abdominal pain affecting 01/13/2024 Overview Note: - Patient endorses abdominal pain radiating to her right flank starting last night, pain comes and goes and is a 10/10 at its worst - Patient took 500mg Tylenol this morning with minimal relief - Abdomen mildly tender to palpation in RLQ and mild right CVA tenderness - Vital signs stable, no vaginal bleeding or unusual vaginal discharge - No gross hematuria or dysuria noted - Urinalysis notable for 3+ blood, sent for culture as urinalysis at outside ED concern for UTI vs contamination - Patient started on Keflex x5 days, on followup list to contact with culture results - Renal ultrasound normal, no hydronephrosis noted - Pain significantly improved s/p 500mg Tylenol, 10mg Flexeril - Counseled patient about likely etiology of kidney stone - Rx sent for 5 days of Flexeril PRN for any additional colicky pain - Patient feels appropriate for discharge home at this time - (more content not included)... [facility] 01-12-2024 Discharge summary Note Date/Time January 12, 2024 6:52pm [facility] Medical Records Department [address] [place] [address] Emergency Department Summary 01/12/24 MR#: [id number] Acct: [id number] Name: KWADWO RODRIGUES Rep #: [id number] : 2000 23 From: Sudeep Forrester DO PCP: Dr. Laurel Mcneal MD Status:REG ER Location: ED HPI HPI - GI History of Present Illness Chief Complaint: Abd Pain Narrative Narrative: 23-year-old female G1, at 15 weeks gestation presenting with acute onset abdominal pain which she states was initially right-sided and then became diffusely crampy. Patient states it was 10 of 10 at the start of this which is a couple hours ago. Patient states now down to about a 5/10. Patient has had OB care. She had confirmed intrauterine . She states her hCGs have been fine. Denies vaginal bleeding or vaginal discharge. No loss of fluid. Denies constipation or diarrhea. Denies vomiting. She states her only other medical problem is asthma. [facility] Medical History Asthma Asthma H pylori ulcer Hives Migraine Pneumonia UTI (urinary tract infection) Home Medications dicyclomine 10 mg capsule 20 mg (2 x 10 mg) PO Q6H PRN Abdominal Discomfort #30 CAPSULES 09/01/23 [Rx Last Taken Unknown] ondansetron 4 mg disintegrating tablet 8 mg (2 x 4 mg) PO Q8H PRN PRN Nausea #30tabs 09/01/23 [Rx Last Taken Unknown] pantoprazole 40 mg tablet,delayed release 40 mg PO DAILY #14 tabs 09/01/23 [Rx Last Taken Unknown] albuterol sulfate 90 mcg/actuation aerosol inhaler 1 inh inhalation ONCE 09/18/23 [History Last Taken Unknown] qudgvbk-hbdcxhffmofgf-nlbkgmso 250 mg-250 mg-65 mg tablet (Excedrin Migraine) 1 tab PO ONCE 09/18/23 [History Last Taken Unknown] buspirone 5 mg tablet 5 mg PO TID PRN anxiety #30 tabs 09/18/23 [Rx Last Taken Unknown] clindamycin phosphate 1 % topical foam 1 applic topical DAILY 09/18/23 [History Last Taken Unknown] fluticasone propionate 44 mcg/actuation HFA aerosol inhaler (Flovent HFA) 1 puffinhalation BID 09/18/23 [History Last Taken Unknown] folic acid 800 mcg tablet 0.8 mg PO DAILY 09/18/23 [History Last Taken Unknown] rizatriptan 5 mg tablet See Rx Instructions PO .COMPLEX 09/18/23 [History Last Taken Unknown] Allergy/AdvReac Type Severity Reaction Status Date / Time shellfish derived Allergy Severe Hives Verified 01/12/24 17:51 levetiracetam [From [facility]] AdvReac Severe Hives Verified 01/12/24 17:51 Family History Sister Asthma Grandfather Cancer lung Grandmother Diabetes Parkinson disease Alzheimer disease Aunt Diabetes Uncle Diabetes Mother Hypertension Thyroid disorder Father Hypertension Grandfather Kidney disease Surgical History H/O knee surgery [place] teeth extracted Social History household members: spouse current occupational status: employed 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[employer] Smoking Status: Never smoker Electronic Cigarette Use: not used second hand exposure: No alcohol intake: current alcohol intake frequency: a few times a month substance use type: does not use what type of physical activity do you participate in: walking frequency: 3-4 times per week do you feel safe at home: Yes ROS ROS ED Constitutional Constitutional ED: Denies chills, fever(s) or sweats Eyes Eyes: Denies blurry vision or change in vision ENT ENT ED: Denies ear pain or sore throat Cardiovascular Cardiovascular: Denies chest pain, palpitations or racing heartbeat Respiratory/Chest Respiratory/Chest: Denies cough, dyspnea or sputum Gastrointestinal Gastrointestinal: Reports abdominal pain; Denies constipation, diarrhea, nausea or vomiting Genitourinary Genitourinary ED: Denies dysuria, hematuria or urinary frequency Musculoskeletal Musculoskeletal: Reports back pain; Denies arthralgias, myalgias or neck pain Integumentary Denies abscess, Abrasions or rash Neurologic Neurologic: Denies headache(s), paresthesias or weakness Psychiatric Psychiatric: Denies anxiety, depression, suicidal ideation or suicidal thoughts Endocrine Endocrinology: Denies polydipsia or polyuria EXAM Physical Exam Const Vital Signs: 01/12/24 17:49 01/12/24 19:49 Temperature 98.2 F Temperature Source Temporal Pulse Rate 122 H 75 Respiratory Rate 25 H 16 Blood Pressure 143/102 H 120/78 Blood Pressure Mean 115 92 Pulse Ox 100 93 Oxygen Delivery Method Room Air Room Air Positive well nourished General Appearance ED: NAD; Negative for pallor HEENT Reports moist mucous membranes normocephalic and atraumatic Eyes PERRL Resp normal respiratory effort Cardio regular rhythm Rate: tachycardic GI non-tender, non-distended and no masses Back/Spine no CVA tenderness Neuro CN's II-XII intact bilaterally Motor Exam: strength 5/5 throughout Psych mental status grossly normal Skin General Skin Exam: Negative for jaundice or pallor MDM MDM MDM Narrative Medical decision making narrative: Patient 15 weeks gestation presenting with abdominal pain which is since improved. Clinical lab works were obtained with the waiting room and her CBC and BMP were unremarkable. Urinalysis negative for infection. test was positive. Will send for quantitative hCG. Will obtain transvaginal ultrasound PE. Patient's abdominal exam is benign. Patient given Tylenol for pain. CBC shows normal white blood count 11.7. Hemoglobin 12.1. Platelets 183. Renal function electrolytes within normal limits with exception of potassium 3.2. Urinalysis negative for infection but does show some contamination. Patient does not have any urinary symptoms. hCG appropriate at 60,054. Transvaginal ultrasound obtained and shows no evidence of ectopic and shows intrauterine with heart rate at 152. Patient counseled on findings. She is currently pain-free after Tylenol. Return precautions were discussed. Impression: 1 abdominal pain in Lab Data Attestation: I reviewed the patient's lab results. Labs: Laboratory Results - last 24 hr 01/12/24 01/12/24 18:09 18:20 WBC 11.7 H RBC 3.78 L Hgb 12.1 Hct 34.9 L MCV 92.3 MCH 32.0 MCHC 34.7 RDW Std Deviation 43.3 RDW Coeff of Omar 13.1 Plt Count 183 MPV 11.4 Immature Gran % (Auto) 0.300 Neut % (Auto) 70.6 H Lymph % (Auto) 20.0 Bertie % (Auto) 8.0 Eos % (Auto) 0.9 Baso % (Auto) 0.2 Absolute Neuts (auto) 8.2 H Absolute Lymphs (auto) 2.34 Nucleated RBC % 0 Sodium 136 Potassium 3.2 L Chloride 109 H Carbon Dioxide 19.0 L Anion Gap 8 BUN 7 Creatinine 0.71 Est GFR (MDRD) Af Amer 129 Est GFR (MDRD) Non-Af 107 BUN/Creatinine Ratio 9.9 L Glucose 89 Calcium 9.2 HCG, Quant 20079 H Serum , Qual POSITIVE H Urine Color Yellow Urine Clarity Sl. Cloudy Urine pH 6.5 Ur Specific [place] 1.020 Urine Protein 30 H Urine Glucose (UA) Normal Urine Ketones 5 H Urine Occult Blood 50 H Urine Nitrite Negative Urine Bilirubin Negative Urine Urobilinogen 1 H Ur Leukocyte Esterase 100 H Urine RBC 5-10 SEEN Urine WBC 0-5 SEEN Ur Squamous Epith Cells 5-10 SEEN Urine Bacteria 1+ Urine Mucus RARE Radiography Diagnostic Testing: Clinical Impression(s) from Imaging Studies Obstetrics Ultrasound 01/12/24 18:48 IMPRESSION: Limited ultrasound shows an intrauterine gestation. No measurements were obtained. heart rate is 152 bpm. Electronically Signed: Sam Romo MD at 20:58 EDT , Discharge Plan Triage Chief Complaint: Abd Pain ED Provider: Sudeep Forrester Dx/Rx/DC Orders Instructions: ED Abdominal Pain, Early Prescriptions: No Action folic acid 800 mcg tablet 0.8 mg PO DAILY clindamycin phosphate 1 % foam 1 applic topical DAILY rizatriptan 5 mg tablet See Rx Instructions PO .COMPLEX Rx Instructions: take 1 tablet at onset of headache; if no relief, may repeat 1 tablet after at least 2 hrs PO Excedrin Migraine 250-250-65 mg tablet 1 tab PO ONCE fluticasone propionate [Flovent HFA] 44 mcg/actuation HFA aerosol inhaler 1 puff inhalation BID Rx Instructions: administer with spacer albuterol sulfate 90 mcg/actuation HFA aerosol inhaler 1 inh inhalation ONCE buspirone 5 mg tablet 5 mg PO TID PRN (Reason: anxiety) Qty: 30 0RF ondansetron [ondansetron] 4 mg tablet,disintegrating 8 mg PO Q8H PRN PRN (Reason: Nausea) Qty: 30 0RF dicyclomine 10 mg capsule 20 mg PO Q6H PRN (Reason: Abdominal Discomfort) Qty: 30 0RF pantoprazole 40 mg tablet,delayed release (DR/EC) 40 mg PO DAILY Qty: 14 0RF Primary Care Provider: Laurel Mcneal Referrals: Cara Orlando MD [Med Staff - Active Staff] - 3-5 Days Robert Cuellar [Belt Builder Helper] - Disposition Disposition: Home, Self Care What to do if you have Problems For any increased pain, shortness of breath, bleeding, nausea or vomiting, chestpain, or any unexpected problems, contact your Primary Care Provider. Call [facility] ([phone]) or report to the closest Emergency Room. Call 911 if necessary. 01/12/242109 <Electronically signed by Sudeep Forrester DO> Cosigner Signature (if applicable): CC: Dr. Laurel Mcneal MD ~ Signed [facility] Work Phone: [phone]) 409-516802-27-2024 Miscellaneous Notes* Quick Notes - Octavio Balbuena MD - 12/26/2023 2:14 PM EST KJ - No VB/LOF/ctxs. A&P: NIPT ordered Needs PNB Schedule NT Octavio Balbuena MD [facility] Instructions* Patient Instructions* Hortencia Bryson Ma - 12/26/2023 1:35 PM EST SEQUENTIAL SCREENINGS [facility] offers sequential screenings for women who are interested in screenings for chromosomal abnormalities and certain defects during a . The sequential screen combinesultrasound and blood tests to determine the risk [...] this testing. It will require an appointment withour hvac/r service technician. This is not an ultrasound [...] the above symptoms, contact our office at [phone] and ask to speak with anurse. After hours, you can call doctors registry at [phone] OR call [facility] at [phone] ask to have the doctor computer information systems instructor paged. If you consider this an emergency, dial 9-1-2 or go to your nearest emergency department. NEED HELP? Are you dealing with a violent or abusive relationship? Are you a victim of rape or sexual assult? Call [facility] ([place]) 24 hour Crisis Hotline: 255.628.5527 or 280-723-8541. MANUAL Your Guide to a Healthy manual is now on-line. Visit [email or web address] to download your free copy documented in this encounter[facility] History of Past illness Narrative* Problem Noted Date Diagnosed Date Resolved Date Genetic screening 12/04/2023 12/26/2023 Overview: 11/27/23-Desires carrier screening, checking with insurance. Aminah Sanchez APRN.WILLAMM Patellar tendinitis of right knee 01/20/2014 11/27/2023 Left lateral knee pain 01/20/201411/27 documented as of this encounter (statuses as of 12/27/2023) [facility] History of Past illness Narrative* Problem Noted Date Diagnosed Date Resolved Date Genetic screening 12/04/2023 12/26/2023 Overview: 11/27/23-Desires carrier screening, checking with insurance. Aminah Sanchez APRN.WILLAMM Patellar tendinitis of right knee 01/20/2014 11/27/2023 Left lateral knee pain 01/20/201411/27 documented as of this encounter (statuses as of 01/03/2024) [facility] History of Past illness Narrative* Problem Noted Date Diagnosed Date Resolved Date Genetic screening 12/04/2023 12/26/2023 Overview: 11/27/23-Desires carrier screening, checking with insurance. Aminah Sanchez APRN.STIVEN Patellar tendinitis of right knee 01/20/2014 11/27/2023 Left lateral knee pain 01/20/201411/27 documented as of this encounter (statuses as of 01/15/2024) [facility] History of Past illness Narrative* Problem Noted Date Diagnosed Date Resolved Date Genetic screening 12/04/2023 12/26/2023 Overview: 11/27/23-Desires carrier screening, checking with insurance. Aminah Sanchez APRN.WILLAMM Patellar tendinitis of right knee 01/20/2014 11/27/2023 Left lateral knee pain 01/20/201411/27 documented as of this encounter (statuses as of 02/15/2024) [facility] History of Past illness Narrative* Problem Noted Date Diagnosed Date Resolved Date Genetic screening 12/04/2023 12/26/2023 Overview: 11/27/23-Desires carrier screening, checking with insurance. 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 OB [...] ASA does not Marital Status: Partner: Name: Samanta Rodrigues Age: 24 Occupation: [employer] Gender: Male History of STDs: None [...] ULTRASOUND WHI - NUCHAL TRANSLUCENCY WHI - CRITICAL CARE NURSE - POC TOOLING INSPECTOR ULTRASOUND - PAP TEST - DOUGLAS/TRICHOMONAS NAAT [...] Your guide to a health and the [employer]. OB Community care order placed. Discussed aneuploidy [...] hemoglobin electrophoresis. Patient: Accepts Reviewed midwifery and shirt ironer services that are available. 2) Discussed nulliparity and ASA if she desires. R/B/A reviewed 3) HgBA1C Follow up in 4 weeks or sooner prn. Jina Sanchez APRN.CNM documented in this encounter[facility]01-29-2024 Instructions* Patient Instructions* Aminah Sanchez APRN.CNM - 11/27/2023 12:23 PM EST Please select the following link to access the [facility] Your Guide to a Healthy . [email or web address] at [facility] CenteringPregnancy is care that includes a traditional [...] through the same experiences *support person welcome! [facility] CenteringPregnancy Groups [place] CenteringPregnancy group #3 with Aminah Sanchez CNM and Kat Stack CNM at [...] acid. It is a common prescription and [id number] medication similar to other non-steroidal inflammatory drugs [...] preferred during . Aspirin eliminates from an infant s body more slowly than from an adult s body, so aspirin levels in the s body could build up over time [...] . For more information, please see the [employer] fact sheet Paternal Exposures at [email or web address]-sheets/spefrotl-jlfrptrit-bmvodktrt/. documented in this encounterSal[facility]11-09-2023 History of Present illness Narrative* Octavio Balbuena MD - 09/07/2023 3:00 PM EST Telephoto Installer offered: Patient declines. Kwadwo is a 23 year old No obstetric history on file. who presents for an annual gynecologic exam. Menses: no menses - continuous OCPs. Contraception: combined hormonal contraceptives HPV vaccine: Yes Last Pap: 07/07/2021 normal HPV: negative History of abnormal pap: No Last mammogram: never OB History No obstetric history on file. 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 LMP: 07/30/2013, Drug Induced Amenorrhea Age at Menarche: Age at First : Age at Menopause: 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 Comments: Sexual Activity: Yes; Male Contraception: [...] external genitalia normal, normal Bartholin's glands, urethra, Commodore's glands, no vulvar lesions, no cervical lesions, [...] needed Octavio Balbuena MD documented in this encounterSal[facility]07-11-2023 Miscellaneous Notes* Telephone Encounter - Demetria Mills LPN - 05/09/2023 8:51 AM EDT Patient notified and verbalized understanding of instructions given.Demetria Mills LPN * Telephone Encounter - Meron Del Rosario - 05/08/2023 11:53 AM EDT Left message for patient to return call. Meron Del Rosario * Telephone Encounter - Samantha Sousa PA-C - 05/08/2023 11:46 AM EDT Call [...] improving in that time. documented in this encounterSal[facility]07-10-2023 History of Present illness Narrative* Samantha Sousa PA-C - 05/08/2023 10:48 AM EDT This note was created using Andtixriter. Subjective Kwadwo Mendieta is a 23 year [...] Patient agreeable. - XR TOE AP/LAT/OBL LEFT Samantha Sousa PA-C documented in this encounterSal[facility]07-10-2023 History of Present illness Narrative* Prudence Henry RT(R) - 05/08/2023 9:30 AM EDT Radiology Service Progress Note PATIENT NAME: Kwadwo Mendieta DATE OF SERVICE: May 08, 2023 TIME: 9:40 AM PATIENT IDENTITY VERIFICATION COMPLETED USING TWO (2) IDENTIFIERS: Name and Date of confirmedby patient verbally. FALL SCREENING: Has the patient had 2 falls in the last year or 1 fall with injury or currently using an Ambulatory Assistive Device (Walker, Cane, Wheelchair, Crutches, etc.)? No PATIENT GENDER DATA: Female. status: : No status: NO. 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 RIGHT KNEE ARTHROSCOPIC [...] M.D. Assisting Jaycob VIEIRA certified The physician business services assistant was present through the entire case. Given the nature of the disease process and the procedure to be performed skilled surgical services asst was necessary during the case. The business services assistant was necessary to hold retractors and manipulate the extremity during the procedure. A certified rehabilitation counselor was at the back table managing the [...] lateral retinaculum. Used a combination of the Mobiveil surface and the shaver to perform a [...] grammatical areas may persist related to the 1[employer]618 Technology software Yasir Abreu MD Signatures/Attestation: Note Completion: Attending AttestationI performed the procedure without a resident Electronic Signatures: Yasir Abreu) (Signed 19-Oct-2020 12:59) Authored: Post-Operative Note, Chart Review, Note Completion Last Updated: 19-Oct-2020 12:59 by Yasir Abreu)[facility]12[facility] NoteHistory & Physical Reviewed: /Lactating: [...] Completion Last Updated: 19-Oct-2020 10:10 by Yasir Abreu)[facility]12[facility] NoteHistory of Present Illness: History [...] patient/other outpatient visits Electronic Signatures: Jaycob Kc (PAC) (Signed 18-Oct-2020 23:37) Authored: History of Present Illness, Allergies, Home Medication Review, Impression/Procedure, ERAS, Review of Systems, Physical Exam, Consent, Note Completion Yasir Abreu) (Signed 19-Oct-2020 06:13) Authored: Note Completion Co-Signer: History of Present Illness, Allergies, Home Medication Review, Impression/Procedure, ERAS, Review of Systems, Physical Exam, Consent, Note Completion Last Updated: 19-Oct-2020 06:13 by Yasir Abreu)[facility]03-24[facility]2014 History of Past illness Narrative* Problem Noted Date Diagnosed Date Resolved Date Patellar tendinitis of right knee 01/20/2014 11/27/2023 Left lateral knee pain 01/20/201411/27 documented as of this encounter (statuses as of 12/05/2023) [facility]* Diagnosis Toe injury, left, initial encounter- Primary documented in this encounter [facility]* Diagnosis Encounter for gynecological examination (general) (routine) without abnormal findings- Primary documented in this encounter [facility]* Diagnosis with uncertain dates in first trimester- Primary Encounter for supervision of normal first in first trimester Supervision of normal first Mild intermittent asthma without complication Unspecified asthma Hx of migraines Personal history of other disorders of nervous system and sense organs Occasional tremors Abnormal involuntary movements Genetic screening Other genetic screening documented in this encounter [facility]* Diagnosis Encounter for supervision of normal first in first trimester- Primary Supervision of normal first documented in this encounter [facility]* Diagnosis First trimester screening- Primary Other specified screening 13 weeks gestation of state, incidental documented in this encounter [facility]* Diagnosis Onset Date Resolution Status Chronic migraine noneactive Elevated blood pressure reading noneactive Establishing care with new doctor, encounter for noneactive Mild intermittent asthma in adult without complication noneactive Anxiety and depression nonea ctive H. pylori infection noneacti ve [facility] Work Phone: Evaluation note* Diagnosis Encounter for supervision of normal first in second trimester- Primary Supervision of normal first 17 weeks gestation of state, incidental documented in this encounter [facility]* Diagnosis Encounter for anatomic survey- Primary 19 weeks gestation of state, incidental [facility]* Diagnosis 24 weeks gestation of - Primary state, incidental Encounter for supervision of normal first in second trimester Supervision of normal first [facility] encounter [facility]* Diagnosis Encounter for supervision of normal first in second trimester- Primary Supervision of normal first 28 weeks gestation of state, incidental Rh negative state in antepartum period Rhesus isoimmunization affecting management of mother, antepartum condition Need for vaccination Need for prophylactic vaccination and inoculation against unspecified single disease [facility] encounter [facility]* Diagnosis 30 weeks gestation of - Primary state, incidental Encounter for supervision of normal first in third trimester Supervision of normal first [facility] encounter [facility]* Diagnosis 32 weeks gestation of - Primary state, incidental Encounter for supervision of normal first in third trimester Supervision of normal first Gestational hypertension, third trimester Urinary frequency Gestational hypertension without significant proteinuria in third trimester Transient hypertension of , antepartum [facility] encounter [facility]* Diagnosis 33 weeks gestation of - Primary state, incidental Encounter for supervision of normal first in third trimester Supervision of normal first Gestational hypertension, third trimester [facility] encounter [facility]* Diagnosis Encounter for supervision of high risk in third trimester, antepartum- Primary 34 weeks gestation of state, incidental Gestational hypertension, third trimester Uterine size-date discrepancy, third trimester Persistent headaches Headache documented in this encounter [facility]* Diagnosis Encounter for supervision of high risk in third trimester, antepartum- Primary Gestational hypertension, third trimester 35 weeks gestation of state, incidental documented [facility] this encounter [facility]* Diagnosis 35 weeks gestation of - Primary state, incidental Encounter for supervision of high risk in third trimester, antepartum Gestational hypertension, third trimester [facility]* Diagnosis Encounter for ultrasound to check growth- Primary Encounter for routine screening for malformation using ultrasonics Gestational hypertension, third trimester 36 weeks gestation of state, incidental documented [facility] this encounter [facility]* Diagnosis 36 weeks gestation of - Primary state, incidental Gestational hypertension, third trimester High-risk in third trimester Itching Unspecified pruritic disorder documented [facility] this encounter [facility]* Diagnosis 36 weeks gestation of - Primary state, incidental Gestational hypertension, third trimester High-risk in third trimester documented [facility] this encounter [facility]* Diagnosis with uncertain dates in first trimester- Primary Encounter for supervision of normal first in first trimester Supervision of normal first Mild intermittent asthma without complication Unspecified asthma Hx of migraines Personal history of other disorders of nervous system and sense organs Occasional tremors Abnormal involuntary movements Genetic screening Other genetic screening exam- Primary Routine follow-up Vaginal discharge Leukorrhea, not specified as infective Vaginal odor Unspecified symptom associated with female genital organs documented [facility] this encounter [facility]* Diagnosis Toe injury, left, initial encounter documented in this encounter [facility] note* Diagnosis with uncertain dates in first trimester- Primary Encounter for supervision of normal first in first trimester Supervision of normal first Mild intermittent asthma without complication Unspecified asthma Hx of migraines Personal history of other disorders of nervous system and sense organs Occasional tremors Abnormal involuntary movements Genetic screening Other genetic screening care and examination- Primary Routine follow-up control counseling General counseling for initiation of other contraceptive measures documented in this encounter [facility] note* Diagnosis with uncertain dates in first trimester- Primary Encounter for supervision of normal first in first trimester Supervision of normal first Mild intermittent asthma without complication Unspecified asthma Hx of migraines Personal history of other disorders of nervous system and sense organs Occasional tremors Abnormal involuntary movements Genetic screening Other genetic screening Encounter for IUD insertion- Primary Encounter for insertion of intrauterine contraceptive device Screen for STD (sexually transmitted disease) Screening examination for venereal disease [facility] Diagnosis with uncertain dates in first trimester- Primary Encounter for supervision of normal first in first trimester Supervision of normal first Mild intermittent asthma without complication Unspecified asthma Hx of migraines Personal history of other disorders of nervous system and sense organs Occasional tremors Abnormal involuntary movements Genetic screening Other genetic screening IUD check up- Primary Surveillance of previously prescribed intrauterine contraceptive device [facility] encounter [facility]* Diagnosis with uncertain dates in first trimester- Primary Encounter for supervision of normal first in first trimester Supervision of normal first Mild intermittent asthma without complication Unspecified asthma Hx of migraines Personal history of other disorders of nervous system and sense organs Occasional tremors Abnormal involuntary movements Genetic screening Other genetic screening Pain with bowel movements- Primary Unspecified constipation Constipation, unspecified constipation type [facility] encounter [facility]* Diagnosis with uncertain dates in first trimester- Primary Encounter for supervision of normal first in first trimester Supervision of normal first Mild intermittent asthma without complication Unspecified asthma Hx of migraines Personal history of other disorders of nervous system and sense organs Occasional tremors Abnormal involuntary movements Genetic screening Other genetic screening IUD check up- Primary Surveillance of previously prescribed intrauterine contraceptive device [facility]* Diagnosis with uncertain dates in first trimester- Primary Encounter for supervision of normal first in first trimester Supervision of normal first Mild intermittent asthma without complication Unspecified asthma Hx of migraines Personal history of other disorders of nervous system and sense organs Occasional tremors Abnormal involuntary movements Genetic screening Other genetic screening Vaginal itching- Primary Pruritus of genital organs [facility] encounter [facility]* Diagnosis Rectal pain- Primary Anal or rectal pain Blood in stool Encounter for screening colonoscopy documented in this encounter [facility] Work Phone: Evaluation note* Diagnosis Blood in stool Rectal pain Anal or rectal pain documented in this encounter [facility] Work Phone: Evaluation note* Diagnosis Encounter for screening colonoscopy- Primary Blood in stool Rectal pain Anal or rectal pain Constipation, unspecified constipation type Acute anterior anal fissure Colonoscopy causing post-procedural bleeding documented in this encounter [facility] Work Phone: Evaluation note* Diagnosis Rectal pain Anal or rectal pain Blood in stool documented in this encounter [facility] Work Phone: Evaluation note* Diagnosis Constipation, unspecified constipation type- Primary Blood in stool Anal fissure Encounter for screening colonoscopy documented in this encounter [facility] Work Phone: Evaluation note* Diagnosis with uncertain dates in first trimester ([facility])- Primary Encounter for supervision of normal first in first trimester ([facility]) Supervision of normal first Mild intermittent asthma without complication (HCC) Unspecified asthma Hx of migraines Personal history of other disorders of nervous system and sense organs Occasional tremors Abnormal involuntary movements Genetic screening Other genetic screening Encounter for IUD removal- Primary Encounter for removal of intrauterine contraceptive device Encounter for repeat prescription of oral contraceptives General counseling for prescription of oral contraceptives [facility] Diagnosis with uncertain dates in first trimester ([facility])- Primary Encounter for supervision of normal first in first trimester ([facility]) Supervision of normal first Mild intermittent asthma without complication ([facility]) Unspecified asthma Hx of migraines Personal history of other disorders of nervous system and sense organs Occasional tremors Abnormal involuntary movements Genetic screening Other genetic screening Encounter for test, result positive ([facility])- Primary examination or test, positive result Missed menses Absence of menstruation Low back pain without sciatica, unspecified back pain laterality, unspecified chronicity documented in this encounter [facility] note* Diagnosis with uncertain dates in first trimester ([facility])- Primary Encounter for supervision of normal first in first trimester ([facility]) Supervision of normal first Mild intermittent asthma without complication ([facility]) Unspecified asthma Hx of migraines Personal history of other disorders of nervous system and sense organs Occasional tremors Abnormal involuntary movements Genetic screening Other genetic screening Nausea and vomiting in ([facility])- Primary Unspecified vomiting of , unspecified as to episode of care First trimester ([facility]) state, incidental Heartburn Personal history of urinary calculi documented in this encounter [facility] note* Diagnosis with uncertain dates in first trimester ([facility])- Primary Encounter for supervision of normal first in first trimester ([facility]) Supervision of normal first Mild intermittent asthma without complication ([facility]) Unspecified asthma Hx of migraines Personal history of other disorders of nervous system and sense organs Occasional tremors Abnormal involuntary movements Genetic screening Other genetic screening Encounter for supervision of normal , antepartum, unspecified ([facility])- Primary 7 weeks gestation of ([facility]) state, incidental with uncertain dates in first trimester ([facility]) Screen for STD (sexually transmitted disease) Screening examination for venereal disease History of gestational hypertension Nausea/vomiting in ([facility]) Unspecified vomiting of , unspecified as to episode of care documented in this encounter [facility] note* Diagnosis Onset Date Resolution Status Admit Date Vaginal itching acute July 13, 2025 1:25pm [facility] Work Phone: Instructions* Name Dates Details Instructions not documented [facility] Work Phone: Reason for referral (narrative)* Diagnostic Procedure Only (Urgent) - Closed Specialty Diagnoses / Procedures Referred By Contac t Referred To Contact XR IMAGING Diagnoses Toe injury, left, initial encounter Procedures XR TOE AP/LAT/OBL LEFT RADEX TOE MINIMUM 2 VIEWS Samantha Sousa, PAGarryC [address] [place] [address] Xr Imaging Referral ID Status Reason Start Date Expiration Date V isits Requested Visits Authorized [id number] Closed Auto-Generate d Referral 05/08/2023 06/06/2024 1 1 [facility] for referral (narrative)* Diagnostic Procedure Only (Routine) - Pending Review Specialty Diagnoses / Procedures Referred By Contac t Referred To Contact [facility] Diagnoses with uncertain dates in first trimester Procedures NUCHAL TRANSLUCENCY WHI US NUCHAL TRANSLUCENCY 1ST GESTATION Aminah Sanchez APRN.CNM [address] [place] [address] [facility] [address] [place] [address] Referral ID Status Reason Start Date Expiration Date Visits Requested Visits Authorized [id number] Pending Review Auto-Generat ed Referral 11/27/2023 11/26/2024 1 1 * Diagnostic Procedure Only (Routine) - Pending Review Specialty Diagnoses / Procedures Referred By Contac t Referred To [facility] [place] Diagnoses with uncertain dates in first trimester Procedures OBSTETRIC ULTRASOUND WHI US PREG UTERUS AFTER 1ST TRIMEST GESTATION Aminah Sanchez APRN.CNM [address] [place] [address] [facility] [address] [place] [address] Referral ID Status Reason Start Date Expiration Date Visits Requested Visits Authorized [id number] Pending Review Auto-Generat ed Referral 11/27/2023 11/26/2024 1 1 [facility] Outpatient Procedure (Routine) - Authorized Specialty Diagnoses / Procedures Referred By Contac t Referred To Contact [facility] Diagnoses Gestational hypertension, third trimester Procedures NON-STRESS TEST NON-STRESS TEST Gale Son MD [address] [place] [address] [address] Referral ID Status Reason Start Date Expiration Date Visits Requested Visits Authorized [id number] Authorized Auto-Generat ed Referral 05/16/2024 05/16/2025 8 1 [facility] for referral (narrative)* Diagnostic Procedure Only (Routine) - New Request Specialty Diagnoses / Procedures Referred By Contac t Referred To Contact [facility] Diagnoses Encounter for supervision of normal first in third trimester 34 weeks gestation of Gestational hypertension, third trimester Procedures BIOPHYSICAL PROFILE US WHI BIOPHYSICAL PROFILE NON-STRESS TESTING Maddy Cintron APRN.CNP [address] [place] [address] [address] Referral ID Status Reason Start Date Expiration Date Visits Requested Visits Authorized [id number] New Request Auto-Generat ed Referral 05/31/2024 05/31/2025 10 1 * Diagnostic Procedure Only (Routine) - Authorized Specialty Diagnoses / Procedures Referred By Frida wilburn Referred To Contact [facility] Diagnoses Encounter for supervision of normal first in third trimester 34 weeks gestation of Gestational hypertension, third trimester Procedures OBSTETRIC ULTRASOUND WHI US PREG UTERUS AFTER 1ST TRIMEST GESTATION Maddy Cintron APRN.CNP [address] [place] [address] [address] Referral ID Status Reason Start Date Expiration Date Visits Requested Visits Authorized [id number] Authorized Auto-Generat ed Referral 05/31/2024 05/31/2025 1 1 [facility] for referral (narrative)* Diagnostic Procedure Only (Urgent) - Closed Specialty Diagnoses / Procedures Referred By Contac t Referred To Contact XR IMAGING Diagnoses Toe injury, left, initial encounter Procedures XR TOE AP/LAT/OBL LEFT RADEX TOE MINIMUM 2 VIEWS Samantha Sousa PA-C [address] [place] [address] [place] [address] Referral ID Status Reason Start Date Expiration Date V isits Requested Visits Authorized [id number] Closed Auto-Generate d Referral 05/08/2023 06/06/2024 1 1 [facility] for referral (narrative)* Outpatient Procedure (Routine) - Authorized Specialty Diagnoses / Procedures Referred By Contac t Referred To Contact [facility] Diagnoses control counseling Procedures INSERT INTRAUTERINE DEVICE LEVONORGESTREL IU 52MG 5 YR INSERT INTRAUTERINE DEVICE Octavio Balbuena MD [facility] [place] [address] [facility] [address] [place] [address] Referral ID Status Reason Start Date Expiration Date Visits Requested Visits Authorized [id number] Authorized Auto-Generat ed Referral 08/01/2024 08/01/2025 1 1 [facility] for referral (narrative)* Outpatient Procedure (Routine) - New Request Specialty Diagnoses / Procedures Referred By Contac t Referred To Contact [facility] Diagnoses Encounter for IUD insertion Procedures INSERT INTRAUTERINE DEVICE LEVONORGESTREL IU 52MG 5 YR INSERT INTRAUTERINE DEVICE Malorie Brown MD [address] [place] [address] [facility] [address] [address] Referral ID Status Reason Start Date Expiration Date Visits Requested Visits Authorized [id number] New Request Auto-Generat ed Referral 08/29/2025 1 1 [facility] for referral (narrative)* Diagnostic Procedure Only (Routine) - Authorized Specialty Diagnoses / Procedures Referred By Contac t Referred To Contact [facility] Diagnoses IUD check up Procedures PELVIC US I US PELVIC NONOBSTETRIC REAL-TIME IMAGE COMPLETE Maddy Cintron APRN.CHILDREN'S MINISTER [address] [place] [address] [address] Referral ID Status Reason Start Date Expiration Date Visits Requested Visits Authorized [id number] Authorized Auto-Generat ed Referral 10/03/2024 10/03/2025 1 1 [facility] for referral (narrative)No reason for referral information [facility] Work Phone: [facility] for visit Narrative* Diagnostic Procedure Only (Urgent) - Closed Specialty Diagnoses / Procedures Referred By Contac t Referred To Contact XR IMAGING Diagnoses Toe injury, left, initial encounter Procedures XR TOE AP/LAT/OBL LEFT RADEX TOE MINIMUM 2 VIEWS Samantha Sousa PA-C [address] [place] [id number] [place] [address] Referral ID Status Reason Start Date Expiration Date V isits Requested Visits Authorized [id number] Closed Auto-Generate d Referral 05/08/2023 06/06/2024 1 1 [facility] for visit Narrative* Diagnostic Procedure Only (Routine) - Closed Specialty Diagnoses / Procedures Referred By Contac t Referred To Contact [facility] Diagnoses IUD check up Procedures PELVIC US I US PELVIC NONOBSTETRIC REAL-TIME IMAGE COMPLETE Maddy Cintron APRN.CHILDREN'S MINISTER [address] [place] [address] [facility] [address] [facility] [place] [address] Referral ID Status Reason Start Date Expiration Date V isits Requested Visits Authorized [id number] Closed Auto-Generate d Referral 10/03/2024 10/03/2025 1 1 [facility] for visit Narrative* Endoscopy (Routine) - Authorized Specialty Diagnoses / Procedures Referred By Frida wilburn Referred To Contact Gastroenterology Diagnoses Blood in stool Rectal pain Procedures Colonoscopy Screening; Average Risk Patient Colonoscopy Screening; Average Risk Patient ID COLONOSCOPY FLX DX W/COLLJ SPEC WHEN PFRMD ID COLORECTAL CANCER SCREENING; COLONOSCOPY ON INDIVIDUAL NOT MEETING CRITERIA FOR HIGH RISK ID COLORECTAL CANCER SCREENING; COLONOSCOPY ON INDIVIDUAL AT HIGH RISK ID COLONOSCOPY W/BIOPSY SINGLE/MULTIPLE ID COLSC FLX W/RMVL OF TUMOR POLYP LESION SNARE TQ ID COLSC FLX W/REMOVAL LESION BY HOT BX FORCEPS Cata Rodriguez APRN-CNP [address] [place] [address] Phone: tel: fax: Referral ID Status Reason Start Date Expiration Date V isits Requested Visits Authorized [id number] Authorized 11/28/2024 11/28/2025 1 1 [facility] Work Phone: [facility] N[facility]* Endoscopy (Routine) - Authorized Specialty Diagnoses / Procedures Referred By Frida wilburn Referred To Contact Gastroenterology Diagnoses Rectal pain Blood in stool Procedures Colonoscopy Diagnostic ID COLONOSCOPY FLX DX W/COLLJ SPEC WHEN PFRMD ID COLONOSCOPY W/BIOPSY SINGLE/MULTIPLE ID COLSC FLX W/RMVL OF TUMOR POLYP LESION SNARE TQ ID COLSC FLX W/REMOVAL [place] [address] [address] [facility] [address] [place] [address] Phone: tel: fax: Referral ID Status Reason Start Date Expiration Date V isits Requested Visits Authorized [id number] Authorized 12/13/2024 12/13/2025 1 1 [facility] Work Phone: Summary Purpose Family History No Family History [...] Family history of asthma(V17 .5, Z82.5) Status:Active Relationship Condition Age at Onset Recorded Date/T megan sister Asthma Unknown grandfather Malignant neoplasm Unknown grandmother Diabetes mellitus Unknown Parkinson's disease Unknown Alzheimer's disease Unknown aunt Diabetes mellitus Unknown uncle Diabetes mellitus Unknown mother Hypertension Unknown Disorder of thyroid Unknown father Hypertension Unknown grandfather Kidney disorder Unknown Advance Directives No Advanced Directives Records FoundDocuments on File Type Date Recorded 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 * Attachments The following attachments cannot be sent through Care Everywhere. * Exposure: Blood and Body Fluids (Indonesian) documented in this encounter Assessments Diagnosis Exposure to blood or body fluid- Primary Health Concerns Problem Noted Date Diagnosed Date [facility] - [facility] 11/27/2023 Education - [place] 11/27/2023 Problem Noted Date Diagnosed Date [facility] - [facility] 11/27/2023 Education - [place] 11/27/2023 Problem Noted Date Diagnosed Date [facility] - [facility] 11/27/2023 Education - [place] 11/27/2023 Active Problems Noted Date Diagnosed Date [facility] - [facility] 11/27/2023 Education - [place] 11/27/2023 Active Problems Noted Date Diagnosed Date [facility] - [facility] 11/27/2023 Education - [place] 11/27/2023 Active Problems Noted Date Diagnosed Date [facility] - [facility] 11/27/2023 Education - [place] 11/27/2023 Chief Complaint and Reason for Visit 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 pylori infection Chief Complaint Admit Date CONCERN FOR YEAST INFECTION July 132024 1:25pm Reason for Visit Admit Date Vaginal itching July 13, 2025 1:25pm Reason for Referral Specialty Diagnoses / Procedures Referred By Frida wilburn Referred To Contact Gastroenterology Diagnoses Pain with bowel movements Constipation, unspecified constipation type Procedures CONSULT TO GASTROENTEROLOGY OFFICE/OUTPATIENT [facility] 60 MINUTES Malorie Brown MD [address] [place] [address] Referral ID Status Reason Start Date Expiration Date Visits Requested Visits Authorized [id number] Authorized PCP Requested Referral 4 10/22/2025 1 1 Additional Source Comments INFORMATION SOURCE (unrecogn ized section and content) DATE CREATED AUTHOR 05/23/2018 [facility] DATE CREATED AUTHOR AUTHOR'S ORGANIZ ATION 01/11/2019 [facility] DATE CREATED AUTHOR AUTHOR'S ORGANIZ ATION 07/31/2019 [facility] DATE CREATED AUTHOR AUTHOR'S ORGANIZ ATION 11/13/2020 [facility] DATE CREATED AUTHOR AUTHOR'S ORGANIZ ATION 02/16/2021 [facility] DATE CREATED AUTHOR AUTHOR'S ORGANIZ ATION 02/22/2021 [facility] DATE CREATED AUTHOR AUTHOR'S ORGANIZ ATION 03/02/2021 [facility] DATE CREATED AUTHOR AUTHOR'S ORGANIZ ATION 10/04/2021 [facility] DATE CREATED AUTHOR AUTHOR'S ORGANIZ ATION 08/22/2022 [facility] ed[facility] DATE CREATED AUTHOR AUTHOR'S ORGANIZ ATION 06/07/2024 [facility] DATE CREATED AUTHOR AUTHOR'S ORGANIZ ATION 02/08/2025 [facility] DATE CREATED AUTHOR AUTHOR'S ORGANIZ ATION 03/07/2025 [facility] DATE CREATED AUTHOR AUTHOR'S ORGANIZ ATION 05/17/2025 [facility] DATE CREATED AUTHOR AUTHOR'S ORGANIZ ATION 06/29/2025 [facility] DATE CREATED AUTHOR AUTHOR'S ORGANIZ ATION 07/14/2025 [facility] Reason for Visit (unrecogniz ed section and content) Reason Comments Reason Comments Pain (foot) Top of L foot and fi fth toe pain after falling down stairs x last night Reason Comments Results Reason Comments Well Woman Reason Onset Date Comments Care 12/26/2023 Reason Comments US Specialty Diagnoses / Procedures Referred By Frida t Referred To Contact [facility] Diagnoses with uncertain dates in first trimester Procedures NUCHAL TRANSLUCENCY WHI US NUCHAL TRANSLUCENCY 1ST GESTATION Aminah Sanchez APRN.STIVEN [address] [place] [address] [facility] [address] [facility] [address] Referral ID Status Reason Start Date Expiration Date V isits Requested Visits Authorized [id number] Closed Auto-Generate d Referral 11/27/2023 11/26/2024 1 1 Reason Onset Date Comments Results 01/15/2024 Reason Onset Date Comments Care 02/14/2024 Specialty Diagnoses / Procedures Referred By Contac t Referred To Contact [facility] Diagnoses with uncertain dates in first trimester Procedures OBSTETRIC ULTRASOUND WHI US PREG UTERUS AFTER 1ST TRIMEST GESTATION Aminah Sanchez APRN.CNM [address] [place] [address] [address] Referral ID Status Reason Start Date Expiration Date V isits Requested Visits Authorized [id number] Closed Auto-Generate d Referral 11/27/2023 11/26/2024 1 1 Reason Comments Patient Update Reason Onset Date Comments Care 03/21/2024 Reason Comments Breast Pump Reason Onset Date Comments Care 04/19/2024 Reason Comments FMLA Paperwork Reason Onset Date Comments Care 05/03/2024 Reason Comments OB Pain Reason Onset Date Comments Care 05/16/2024 Reason Comments Care Reason Onset Date Comments Care 05/23/2024 Reason Comments OB CABA, Elevated BP Reason Onset Date Comments Care 05/31/2024 Reason Onset Date Comments Care 06/03/2024 Reason Onset Date Comments Care 06/07/2024 Specialty Diagnoses / Procedures Referred By Contac t Referred To Contact [facility] Diagnoses Encounter for supervision of normal first in third trimester 34 weeks gestation of Gestational hypertension, third trimester Procedures OBSTETRIC ULTRASOUND WHI US PREG UTERUS AFTER 1ST TRIMEST GESTATION Maddy Cintron, 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.CHILDREN'S MINISTER [address] [place] [address] [address] Referral ID Status Reason Start Date Expiration Date V isits Requested Visits Authorized [id number] Closed Auto-Generate d Referral 05/31/2024 05/31/2025 1 1 Reason Onset Date Comments Care 06/11/2024 Reason Onset Date Comments Care 06/14/2024 Reason Comments Ob Delivery Note Reason Comments Early Reason Comments Routine Reason Onset Date Comments Insertion Of IUD 08/29/2024 Specialty Diagnoses / Procedures Referred By Frida wilburn Referred To Contact [facility] Diagnoses control counseling Procedures INSERT INTRAUTERINE DEVICE LEVONORGESTREL IU 52MG 5 YR INSERT INTRAUTERINE DEVICE Octavio Balbuena MD [address] [place] [address] [facility] [address] [place] [address] Referral ID Status Reason Start Date Expiration Date V isits Requested Visits Authorized [id number] Closed Auto-Generate d Referral 08/01/2024 08/01/2025 1 1 Reason Comments IUD Check Reason Comments Patient Update Reason Comments Vaginal Problem Reason Comments Black or Bloody Stool States that since she had her baby in May, she has been experiencing constipation. She takes multiple Colace's a day. BM are painful, straining. There is always blood in her stool, the amount of blood varies. She had rectal exam, did not find hemorrhoids. Has never had a colonoscopy. Hx of h. Pylori treated by PCP. Specialty Diagnoses / Procedures Referred By Frida wilburn Referred To Contact Gastroenterology Diagnoses Blood in stool Judy Stoner MD [address] [place] [address] Phone: tel: fax: Referral ID Status Reason Start Date Expiration Date Visits Requested Visits Authorized [id number] Authorized Specialty Services Required 11/22/2024 11/22/2025 1 1 Reason Comments Rectal Bleeding Patient presents for follow up. She states she went to ER with more bleeding and pain than previous. She did not schedule another colonoscopy due to work constraints. Reason Comments Establish Care Reason Comments Results Discuss 2 day prep f or repeat colon Reason Onset Date Comments IUD Removal 03/26/2025 Specialty Diagnoses / Procedures [facility] Referred To Contact [facility] Diagnoses Encounter for IUD removal Procedures REMOVE INTRAUTERINE DEVICE REMOVE INTRAUTERINE DEVICE Natasha Haque APRN.CHILDREN'S MINISTER [address] [place] [address] Phone: tel: fax: [facility][Note 3] [address] [place] [address] Referral ID Status Reason Start Date Expiration Date V isits Requested Visits Authorized [id number] Closed Auto-Generate d Referral 03/19/2025 03/19/2026 1 1 Reason Comments +UPT Reason Comments Follow Up confirmati on Reason Comments Nausea Reason Comments early Reason Comments New [facility] Elana Alberts RN - 12/09/2020 4:38 PM ESTElana Alberts RN - 12/09/2020 4:38 PM Elana Darby RN - 12/09/2020 4:27 PM ESTElana Alberts RN - 12/09/2020 4:12 PM Elana Darby RN - 12/09/2020 1:25 PM EST ED Notes (unrecognized secti on and content) Discharge instructions provided to pt, pt verbalizes understanding and denies questions. Pt A&Ox3, resp =/unlabored, no s/s of distress noted. Pt ambulatory at discharge. Joie JUARES provided discharge paperwork Per Nursing Director Of Cardiology Service Line, lab is fixing the problem at this time. Pt made aware. This RN called regarding blood work for pt. Per Alesia, those are send outs to [facility]. This RN notified Joie JUARES at this time. ED PROVIDER NOTE [facility] EMERGENCY DEPARTMENT NAME: Kwadwo Mendieta AGE: 20 y.o. : 2000 VISIT DATE: 12/09/2020 CSN: [id number] PCP: Provider Not in System No chief complaint on file. [facility] nursing secretary presents to ED reporting exposure to body [...] file Gets together: Not on file Attends temple service: Not on file Active member of [...] left forearm. Discussed with Fifi Tran, patient's assisted living nursing director and [facility]'s position is since the patient was anxious over getting blood on her forearm that she should come to ED for evaluation. Na, charge nurse spoke with nursing kiln head house operator Lilo, and patient should have exposure labs drawn. Updated both patient and patient's assisted living nursing director. [id number] Nagy reported source pt negative. Patient discharged at this time verbalizes understanding to follow-up with [facility] post exposure protocol. The patient has been [...] stable condition. Follow-up Information 1. Follow-up with [facility] per their exposure protocol. Why: Call today [...] or prosecute any alcohol or drug abuse patient.[facility] CenterIn the event this information is protected by the Federal Confidentiality of Alcohol and Drug Abuse Patient Records regulations: The Federal rules restrict any use of the information to criminally investigate or prosecute any alcohol or drug abuse patient.[facility] CenterIn the event this information is protected by the Federal Confidentiality of Alcohol and Drug Abuse Patient Records regulations: The Federal rules restrict any use of the information to criminally investigate or prosecute any alcohol or drug abuse patient.[facility] CenterIn the event this information is protected by the Federal Confidentiality of Alcohol and Drug Abuse Patient Records regulations: The Federal rules restrict any use of the information to criminally investigate or prosecute any alcohol or drug abuse patient.[facility] CenterIn the event this information is protected by the Federal Confidentiality of Alcohol and Drug Abuse Patient Records regulations: The Federal rules restrict any use of the information to criminally investigate or prosecute any alcohol or drug abuse patient.[facility] CenterIn the event this information is protected by the Federal Confidentiality of Alcohol and Drug Abuse Patient Records regulations: The Federal rules restrict any use of the information to criminally investigate or prosecute any alcohol or drug abuse patient.[facility] CenterIn the event this information is protected by the Federal Confidentiality of Alcohol and Drug Abuse Patient Records regulations: The Federal rules restrict any use of the information to criminally investigate or prosecute any alcohol or drug abuse patient.[facility] CenterIn the event this information is protected by the Federal Confidentiality of Alcohol and Drug Abuse Patient Records regulations: The Federal rules restrict any use of the information to criminally investigate or prosecute any alcohol or drug abuse patient.[facility] CenterIn the event this information is protected by the Federal Confidentiality of Alcohol and Drug Abuse Patient Records regulations: The Federal rules restrict any use of the information to criminally investigate or prosecute any alcohol or drug abuse patient.[facility] CenterIn the event this information is protected by the Federal Confidentiality of Alcohol and Drug Abuse Patient Records regulations: The Federal rules restrict any use of the information to criminally investigate or prosecute any alcohol or drug abuse patient.[facility] CenterIn the event this information is protected by the Federal Confidentiality of Alcohol and Drug Abuse Patient Records regulations: The Federal rules restrict any use of the information to criminally investigate or prosecute any alcohol or drug abuse patient.[facility] CenterIn the event this information is protected by the Federal Confidentiality of Alcohol and Drug Abuse Patient Records regulations: The Federal rules restrict any use of the information to criminally investigate or prosecute any alcohol or drug abuse patient.[facility] CenterIn the event this information is protected by the Federal Confidentiality of Alcohol and Drug Abuse Patient Records regulations: The Federal rules restrict any use of the information to criminally investigate or prosecute any alcohol or drug abuse patient.[facility] CenterIn the event this information is protected by the Federal Confidentiality of Alcohol and Drug Abuse Patient Records regulations: The Federal rules restrict any use of the information to criminally investigate or prosecute any alcohol or drug abuse patient.[facility] CenterIn the event this information is protected by the Federal Confidentiality of Alcohol and Drug Abuse Patient Records regulations: The Federal rules restrict any use of the information to criminally investigate or prosecute any alcohol or drug abuse patient.[facility] CenterIn the event this information is protected by the Federal Confidentiality of Alcohol and Drug Abuse Patient Records regulations: The Federal rules restrict any use of the information to criminally investigate or prosecute any alcohol or drug abuse patient.[facility] CenterIn the event this information is protected by the Federal Confidentiality of Alcohol and Drug Abuse Patient Records regulations: The Federal rules restrict any use of the information to criminally investigate or prosecute any alcohol or drug abuse patient.[facility] CenterIn the event this information is protected by the Federal Confidentiality of Alcohol and Drug Abuse Patient Records regulations: The Federal rules restrict any use of the information to criminally investigate or prosecute any alcohol or drug abuse patient.[facility] CenterIn the event this information is protected by the Federal Confidentiality of Alcohol and Drug Abuse Patient Records regulations: The Federal rules restrict any use of the information to criminally investigate or prosecute any alcohol or drug abuse patient.[facility] CenterIn the event this information is protected by the Federal Confidentiality of Alcohol and Drug Abuse Patient Records regulations: The Federal rules restrict any use of the information to criminally investigate or prosecute any alcohol or drug abuse patient.[facility] CenterIn the event this information is protected by the Federal Confidentiality of Alcohol and Drug Abuse Patient Records regulations: The Federal rules restrict any use of the information to criminally investigate or prosecute any alcohol or drug abuse patient.[facility] CenterIn the event this information is protected by the Federal Confidentiality of Alcohol and Drug Abuse Patient Records regulations: The Federal rules restrict any use of the information to criminally investigate or prosecute any alcohol or drug abuse patient.[facility] CenterIn the event this information is protected by the Federal Confidentiality of Alcohol and Drug Abuse Patient Records regulations: The Federal rules restrict any use of the information to criminally investigate or prosecute any alcohol or drug abuse patient.[facility] CenterIn the event this information is protected by the Federal Confidentiality of Alcohol and Drug Abuse Patient Records regulations: The Federal rules restrict any use of the information to criminally investigate or prosecute any alcohol or drug abuse patient.[facility] CenterIn the event this information is protected by the Federal Confidentiality of Alcohol and Drug Abuse Patient Records regulations: The Federal rules restrict any use of the information to criminally investigate or prosecute any alcohol or drug abuse patient.[facility] CenterIn the event this information is protected by the Federal Confidentiality of Alcohol and Drug Abuse Patient Records regulations: The Federal rules restrict any use of the information to criminally investigate or prosecute any alcohol or drug abuse patient.[facility] CenterIn the event this information is protected by the Federal Confidentiality of Alcohol and Drug Abuse Patient Records regulations: The Federal rules restrict any use of the information to criminally investigate or prosecute any alcohol or drug abuse patient.[facility] CenterIn the event this information is protected by the Federal Confidentiality of Alcohol and Drug Abuse Patient Records regulations: The Federal rules restrict any use of the information to criminally investigate or prosecute any alcohol or drug abuse patient.[facility] CenterIn the event this information is protected by the Federal Confidentiality of Alcohol and Drug Abuse Patient Records regulations: The Federal rules restrict any use of the information to criminally investigate or prosecute any alcohol or drug abuse patient.[facility] CenterIn the event this information is protected by the Federal Confidentiality of Alcohol and Drug Abuse Patient Records regulations: The Federal rules restrict any use of the information to criminally investigate or prosecute any alcohol or drug abuse patient.[facility] CenterIn the event this information is protected by the Federal Confidentiality of Alcohol and Drug Abuse Patient Records regulations: The Federal rules restrict any use of the information to criminally investigate or prosecute any alcohol or drug abuse patient.[facility] CenterIn the event this information is protected by the Federal Confidentiality of Alcohol and Drug Abuse Patient Records regulations: The Federal rules restrict any use of the information to criminally investigate or prosecute any alcohol or drug abuse patient.[facility] CenterIn the event this information is protected by the Federal Confidentiality of Alcohol and Drug Abuse Patient Records regulations: The Federal rules restrict any use of the information to criminally investigate or prosecute any alcohol or drug abuse patient.[facility] CenterIn the event this information is protected by the Federal Confidentiality of Alcohol and Drug Abuse Patient Records regulations: The Federal rules restrict any use of the information to criminally investigate or prosecute any alcohol or drug abuse patient.[facility] CenterIn the event this information is protected by the Federal Confidentiality of Alcohol and Drug Abuse Patient Records regulations: The Federal rules restrict any use of the information to criminally investigate or prosecute any alcohol or drug abuse patient.[facility] CenterIn the event this information is protected by the Federal Confidentiality of Alcohol and Drug Abuse Patient Records regulations: The Federal rules restrict any use of the information to criminally investigate or prosecute any alcohol or drug abuse patient.[facility] CenterIn the event this information is protected by the Federal Confidentiality of Alcohol and Drug Abuse Patient Records regulations: The Federal rules restrict any use of the information to criminally investigate or prosecute any alcohol or drug abuse patient.[facility] CenterIn the event this information is protected by the Federal Confidentiality of Alcohol and Drug Abuse Patient Records regulations: The Federal rules restrict any use of the information to criminally investigate or prosecute any alcohol or drug abuse patient.[facility] CenterIn the event this information is protected by the Federal Confidentiality of Alcohol and Drug Abuse Patient Records regulations: The Federal rules restrict any use of the information to criminally investigate or prosecute any alcohol or drug abuse patient.[facility] CenterIn the event this information is protected by the Federal Confidentiality of Alcohol and Drug Abuse Patient Records regulations: The Federal rules restrict any use of the information to criminally investigate or prosecute any alcohol or drug abuse patient.[facility] CenterIn the event this information is protected by the Federal Confidentiality of Alcohol and Drug Abuse Patient Records regulations: The Federal rules restrict any use of the information to criminally investigate or prosecute any alcohol or drug abuse patient.[facility] CenterIn the event this information is protected by the Federal Confidentiality of Alcohol and Drug Abuse Patient Records regulations: The Federal rules restrict any use of the information to criminally investigate or prosecute any alcohol or drug abuse patient.[facility] CenterIn the event this information is protected by the Federal Confidentiality of Alcohol and Drug Abuse Patient Records regulations: The Federal rules restrict any use of the information to criminally investigate or prosecute any alcohol or drug abuse patient.[facility] CenterIn the event this information is protected by the Federal Confidentiality of Alcohol and Drug Abuse Patient Records regulations: The Federal rules restrict any use of the information to criminally investigate or prosecute any alcohol or drug abuse patient.[facility] CenterIn the event this information is protected by the Federal Confidentiality of Alcohol and Drug Abuse Patient Records regulations: The Federal rules restrict any use of the information to criminally investigate or prosecute any alcohol or drug abuse patient.[facility] CenterIn the event this information is protected by the Federal Confidentiality of Alcohol and Drug Abuse Patient Records regulations: The Federal rules restrict any use of the information to criminally investigate or prosecute any alcohol or drug abuse patient.[facility] CenterIn the event this information is protected by the Federal Confidentiality of Alcohol and Drug Abuse Patient Records regulations: The Federal rules restrict any use of the information to criminally investigate or prosecute any alcohol or drug abuse patient.[facility] CenterIn the event this information is protected by the Federal Confidentiality of Alcohol and Drug Abuse Patient Records regulations: The Federal rules restrict any use of the information to criminally investigate or prosecute any alcohol or drug abuse patient.[facility] CenterIn the event this information is protected by the Federal Confidentiality of Alcohol and Drug Abuse Patient Records regulations: The Federal rules restrict any use of the information to criminally investigate or prosecute any alcohol or drug abuse patient.[facility] CenterIn the event this information is protected by the Federal Confidentiality of Alcohol and Drug Abuse Patient Records regulations: The Federal rules restrict any use of the information to criminally investigate or prosecute any alcohol or drug abuse patient.[facility] CenterIn the event this information is protected by the Federal Confidentiality of Alcohol and Drug Abuse Patient Records regulations: The Federal rules restrict any use of the information to criminally investigate or prosecute any alcohol or drug abuse patient.[facility] CenterIn the event this information is protected by the Federal Confidentiality of Alcohol and Drug Abuse Patient Records regulations: The Federal rules restrict any use of the information to criminally investigate or prosecute any alcohol or drug abuse patient.[facility] CenterIn the event this information is protected by the Federal Confidentiality of Alcohol and Drug Abuse Patient Records regulations: The Federal rules restrict any use of the information to criminally investigate or prosecute any alcohol or drug abuse patient.[facility] CenterIn the event this information is protected by the Federal Confidentiality of Alcohol and Drug Abuse Patient Records regulations: The Federal rules restrict any use of the information to criminally investigate or prosecute any alcohol or drug abuse patient.[facility] Care Teams (unrecognized sec tion and content) Team Status: Active Member Role Status Dates Dr. Laurel Mcneal MD Primary Care Provider Active Team Status: Inactive Member Role Status Dates Dr. Laurel Mcneal MD Attending Provider Active Team Status: Inactive Member Role Status Dates Dr. Sudeep Forrester DO Emergency Provider Active Dr. Laurel Mcneal MD Primary Care Provider Active Metal Finisher Relationship Specialty Start Date End Date Judy Stoner MD PCP - General 10/18/17 Metal Finisher Relationship Specialty Start Date End Date Judy Stoner MD PCP - General 10/18/17 Cata Rodriguez APRN-[employer] [id number] [place] [address] Nurse Practitioner Gastroenterology 11/29/24 Metal Finisher Relationship Specialty Start Date End Date Judy Stoner MD PCP - General 10/18/17 Cata Rodriguez APRN-[facility] [id number] [place] [address] Nurse Practitioner Gastroenterology 11/29/24 Metal Finisher Relationship Specialty Start Date End Date Judy Stoner MD PCP - General 10/18/17 Cata Rodriguez APRN-[facility] [id number] [place] [address] Nurse Practitioner Gastroenterology 11/29/24 Metal Finisher Relationship Specialty Start Date End Date Judy Stoner MD [address] [place] [id number] PCP - General Nephrology 02/28/25 Cata Rodriguez APRN-[facility] [id number] [place] [address] Nurse Practitioner Gastroenterology 11/29/24 Team Status: Active Member Role/Relationship Status Dates No Primary Care Physician Primary Care Provider Active Team Status: Inactive Member Role/Relationship Status Dates No Primary Care Physician Primary Care Provider Active Start: July 13, 2025 End: July 13, 2025 No Primary Care Physician Referring Provider Active Start: July 13, 2025 End: July 13, 2025 Eren Yang DOUGH MIXING MACHINE OPERATOR, DOUGH MIXING MACHINE OPERATOR-C Attending Provider Active S tart: July 13, 2025 End: July 13, 2025 Goals (unrecognized section and content) Goals may be documented in a n alternate sectionGoals may be documented in an alternate section FOR RECORDS PERTAINING TO PATIENTS WHO ARE [...] BE BASED ON THE PRIMARY CLINICAL RECORDS. [employer] provides no warranty or guarantee of the accuracy or completeness of information in this document.
[2025-07-16 21:52] LABS: Lipase 26 U/L (13-75)
[2025-07-16 22:37] VITALS: BP 116/69; PULSE 79; RESP 14; O2SAT 99
--- NOTE | 2025-07-16 22:38 | EX.ED.DYSGE1 ---
HPI History of Present Illness Chief Complaint: Abd Pain Narrative Narrative: Chief complaint and HPI: 25-year-old female who is G2, P1, A0 who is 10 weeks confirmed on ultrasound presents for evaluation of right flank pain. Onset approximately 2 days ago. Associated symptom is urinary frequency. Patient states she has a history of kidney stones with her first . 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 She denies any uterine cramping, vaginal discharge, vaginal bleeding. She states this pain feels similar to her previous kidney stone. She denies any fever, chills, shortness of breath, chest pain, diarrhea, constipation. Associated nausea. Review of systems: See HPI Medications: As listed on the chart Allergies: As listed on the chart PFSH: Per chart Vital signs: As listed on the chart. Reviewed. Physical exam: Gen: A&O x3, NAD Head: Normocephalic, atraumatic Eyes: No sclera icterus, conjunctiva clear ENT: Moist mucous membranes CV: RRR, no murmurs, no peripheral edema Resp: Lungs CTA BL, no w/r/c GI: Abd soft, non-distended, non-tender, no r/r/g : No CVA tenderness Musc: Full ROM, no deformity Skin: Warm, dry Neuro: Alert, oriented, grossly intact, sensation intact Psych: Cooperative, appropriate mood and affect [facility] Medical History Muscle tremor Headache Gestational HTN Asthma Migraine H pylori ulcer Pneumonia Hives UTI (urinary tract infection) Asthma Home Medications ?Medication ?Instructions ?Recorded ?Last Taken ?Type vit no.95-ferrous 1 tab PO DAILY 04/27/24 06/15/24 History fumarate 28 mg-folic acid 800 mcg tablet () famotidine 20 mg tablet 20 mg PO BID 07/13/25 Unknown History nystatin 100,000 unit/gram topical 1 applic topical QDAY #15 grams 07/13/25 Unknown Rx cream promethazine 12.5 mg tablet 12.5 - 25 mg PO Q6 PRN nausea and 07/13/25 Unknown History vomiting tioconazole 6.5 % vaginal ointment 1 appful vaginal ONCE #4.6 grams 07/13/25 Unknown Rx (Monistat 1 (tioconazole)) albuterol sulfate 2.5 mg/3 mL 1 inhalation Q4H PRN PRN shortness 07/16/25 Unknown History (0.083 %) solution for nebulization of breath or wheezing cephalexin 500 mg capsule 500 mg PO Q6H 7 days #28 caps 07/16/25 Unknown Rx hydrocodone-acetaminophen 5-325mg 1 tab PO Q6H PRN pain 3 days #12 07/16/25 Unknown Rx 5mg-325mg TABLETS Allergy/AdvReac Type Severity Reaction Status Date / Time shellfish derived Allergy Severe Hives Verified 07/16/25 20:38 morphine Allergy Rash Verified 07/16/25 21:30 levetiracetam (From Keppra) AdvReac Severe Hives Verified 07/16/25 20:38 sumatriptan (From Imitrex) AdvReac Unknown Other Verified 07/16/25 20:38 Family History Sister Asthma Grandfather Cancer lung Grandmother Diabetes Parkinson disease Alzheimer disease Aunt Diabetes Uncle Diabetes Mother Hypertension Thyroid disorder Father Hypertension Grandfather Kidney disease Surgical History History of surgery [place] teeth extracted H/O knee surgery Social History household members: spouse current occupational status: employed 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[employer] Smoking Status: Never smoker Electronic Cigarette Use: not used second hand exposure: No alcohol intake: current alcohol intake frequency: a few times a month substance use type: does not use what type of physical activity do you participate in: walking frequency: 3-4 times per week do you feel safe at home: Yes EXAM Physical Exam Const Vital Signs: 07/16/25 20:38 07/16/25 22:37 07/16/25 23:16 Temperature 97 F L 97 F L Temperature Source Temporal Pulse Rate 105 H 79 79 Respiratory Rate 20 H 14 14 Blood Pressure 125/75 H 116/69 116/69 Blood Pressure Mean 91 84 84 Pulse Ox 100 99 99 Oxygen Delivery Method Room Air Room Air MDM MDM MDM Narrative Medical decision making narrative: 25-year-old female who is G2, P1, A0 who is 10 weeks confirmed on ultrasound presents for evaluation of right flank pain. Onset approximately 2 days ago. Associated symptom is urinary frequency. Patient states she has a history of kidney stones with her first . She states this pain feels similar to her previous kidney stone. 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 She denies any uterine cramping, vaginal discharge, vaginal bleeding. Differential diagnosis includes but is not limited to urolithiasis, electrolyte abnormality, UTI, pyelonephritis. Patient is therefore will obtain renal ultrasound. She was given the risks and benefits to CT abdomen pelvis without contrast and does not want this performed. I do think this is reasonable given her . Morphine, NS bolus, Zofran ordered for symptoms. Laboratory workup ordered including urine. CBC without leukocytosis or anemia. Platelets unremarkable. Renal ultrasound shows a small 5 mm nonobstructive right renal stone. No hydronephrosis. No urolithiasis. Urinary bladder is underdistended. UA is positive for blood, leuk esterase, bacteria. This is not a clean sample with squamous epithelial of 10-25. Will send for culture and treat given bacteria in as well she did endorse some dysuria. First dose of Keflex given here in the emergency department. CMP without significant electrolyte abnormality or GEN. Lactic acid unremarkable. Lipase unremarkable. At this point in time, no clear etiology for patient's right flank pain. Her pain is resolved with morphine. May be secondary to small passed urolithiasis however nothing visualized on renal ultrasound although this is not as good of a test as CT abdomen pelvis. Will not place on Flomax as cannot confirm urolithiasis. Patient has Phenergan at home and declined Zofran prescription. In case this was a passed stone or a small urolithiasis we will give Novinger for severe pain. Patient will be given a prescription for Keflex. Follow-up with urology. Strict return precautions explained. Given that patient follows with [facility] [employer]. I did reach out to them and update them on the plan of the patient. Patient was discussed with Dr. Son. She agrees with the plan. Agrees with no Flomax. Follow-up in their office. Follow-up with urology. Patient stable to discharge home. Impression: 1. Right flank pain 2. Questionable UTI 3. Right nephrolithiasis Lab Data Labs: Laboratory Results - last 24 hr 07/16/25 07/16/25 21:12 21:19 WBC 9.5 RBC 3.84 L Hgb 12.1 Hct 34.7 L MCV 90.4 MCH 31.5 MCHC 34.9 RDW Std Deviation 39.5 RDW Coeff of Omar 12.2 Plt Count 227 MPV 11.8 Immature Gran % (Auto) 0.400 Neut % (Auto) 70.3 H Lymph % (Auto) 21.1 [place] % (Auto) 7.2 Eos % (Auto) 0.8 Baso % (Auto) 0.2 Absolute Neuts (auto) 6.6 Absolute Lymphs (auto) 2.00 Nucleated RBC % 0 Sodium 137 Potassium 3.7 Chloride 107 Carbon Dioxide 18.0 L Anion Gap 12 BUN 8 Creatinine 0.65 L Estim Creat Clear Calc 124.75 Est GFR (MDRD) Non-Af 125 BUN/Creatinine Ratio 11.7 Glucose 88 Lactic Acid < 1.0 Calcium 9.3 Total Bilirubin 0.20 AST 15 ALT 11 Alkaline Phosphatase 75 Total Protein 6.5 Albumin 4.1 Globulin 2.4 Albumin/Globulin Ratio 1.7 Lipase 26 Urine Color Straw Urine Clarity Sl. Cloudy Urine pH 6.0 Ur Specific [place] 1.025 Urine Protein 15 H Urine Glucose (UA) Normal Urine Ketones Negative Urine Occult Blood 25 H Urine Nitrite Negative Urine Bilirubin Negative Urine Urobilinogen Normal Ur Leukocyte Esterase 100 H Urine RBC 0-5 SEEN Urine WBC 0-5 SEEN Ur Squamous Epith Cells 10-25 SEEN Ur Renal Epithelial Cell 0-5 SEEN Amorphous Sediment 1+ Urine Bacteria 1+ Urine Mucus 0 SEEN Radiography Diagnostic Testing: Clinical Impression(s) from Imaging Studies Renal Ultrasound 07/16/25 21:09 IMPRESSION: Small 5 mm nonobstructive right renal stone. No hydronephrosis on either side. Reading Location: [facility] Discharge Plan Triage Chief Complaint: Abd Pain ED Provider: Ld Brown Dx/Rx/DC Orders Clinical Impression: Acute right flank pain Instructions: ED Abdominal Pain Unkn Cause Fem Prescriptions: New hydrocodone-acetaminophen 5-325 mg tablet 1 tab PO Q6H PRN (Reason: pain) 3 Days Qty: 12 0RF cephalexin 500 mg capsule 500 mg PO Q6H 7 Days Qty: 28 0RF No Action promethazine 12.5 mg tablet 12.5 - 25 mg PO Q6 PRN (Reason: nausea and vomiting) famotidine 20 mg tablet 20 mg PO BID tioconazole [Monistat 1 (tioconazole)] 6.5 % ointment 1 appful vaginal ONCE Qty: 4.6 0RF Rx Instructions: administer at bedtime nystatin 100,000 unit/gram cream 1 applic topical QDAY Qty: 15 0RF PNV no.95-ferrous fumarate-FA [] 28 mg iron- 800 mcg tablet 1 tab PO DAILY albuterol sulfate 2.5 mg /3 mL (0.083 %) solution for nebulization 1 inhalation Q4H PRN PRN (Reason: shortness of breath or wheezing) Primary Care Provider: JUDY POON Referrals: JUDY POON [Other] - 3-5 Days Follow-up with your [facility] [employer] [employer] [Other] - 3-5 Days Angelika Mccallum MD [Med Staff - Active Staff, Urology] - 3-5 Days Activity Restrictions/Additional Instructions: You may have passed a small kidney stone however nothing was visualized on imaging. Take all of your antibiotics, you were given your first dose here in the emergency department. Narcotics for severe pain, otherwise take Tylenol. Take your home Phenergan as needed for nausea. Follow-up with urology and [facility] [employer] [employer]. Print Language: Wolof Disposition Disposition: Home, Self Care
[2025-07-16 22:39] LABS: Red Blood Cells-Urine 0-5 SEEN /hpf (0-5); Squamous Epithelial Cells - UA 10-25 SEEN /hpf (5-10)
[2025-07-16 22:48] LABS: AST(SGOT) 15 U/L (<=31); Alanine Aminotransfer ALT/SGPT 11 U/L (<=34); Albumin, Serum 4.1 g/dL (3.5-5.0); Alkaline Phosphatase 75 U/L (35-104); Anion Gap 12 (5-15); BUN 8 mg/dL (4-19); BUN/Creat Ratio 11.7 RATIO (10-20); Calcium,Total 9.3 mg/dL (7.6-11.0); Carbon Dioxide 18.0 mmol/L (21.0-32.0); Chloride 107 mmol/L (98-108); Estimated Creatinine Clearance 124.75 ml/min (50-250); Globulin 2.4 g/dL (2.2-4.2); Glucose 88 mg/dL (70-99); Potassium 3.7 mmol/L (3.3-5.1)
[2025-07-16 23:16] VITALS: BP 116/69; PULSE 79; RESP 14; TEMP 36.1; O2SAT 99
== END 2025-07-16 23:42 | disposition home or self-care (01) ==
PROVIDERS: Emergency Provider Surgery; Visit Provider Surgery
DX: O99.891 Other specified diseases and conditions complicating pregnancy (principal); N20.0 Calculus of kidney; O26.831 Pregnancy related renal disease, first trimester; R35.0 Frequency of micturition; Z3A.10 10 weeks gestation of pregnancy; R10.9 Unspecified abdominal pain
CPT/HCPCS: 76770; 80053; 81001; 83605; 83690; 85025; 87077; 87086; 87088; 96361; 96374; 96375; 99283; A4216; J2405